=== PATIENT | female | born 1960 | race Caucasian/White ===

== ENCOUNTER 2019-04-20 17:09 | Inpatient (IN) | payer SELFPAY ==
[2019-04-20 17:43] LABS: Absolute Lymphocytes (CBC) 3.6 K/uL (0.7-4.9); Basophils % 1.4 % (0-1.3); Hematocrit 41.7 % (36.0-45.0); Lymphocytes % 27.5 % (15.3-44.8); MPV 8.7 fL (7.6-11.3); RBC Red Blood Cell Count 4.84 M/uL (3.86-4.86)
[2019-04-20 17:44] LABS: Protime INR 0.96
[2019-04-20 18:12] LABS: ALT/SGPT 20 U/L (12-78); AST/SGOT 10 U/L (15-37); Albumin 3.3 g/dL (3.4-5.0); Alkaline Phosphatase 185 U/L (45-117); BUN Blood Urea Nitrogen 14 mg/dL (7-18); Bicarbonate 24 mmol/L (21-32); Bilirubin Direct < 0.1 mg/dL (0-0.2); Bilirubin Total 0.2 mg/dL (0.2-1.0); Glucose Level 383 mg/dL (74-106); Magnesium 1.8 mg/dL (1.8-2.4); NT PRO-BNP 119 pg/mL (<125); Potassium 3.7 mmol/L (3.5-5.1); Protein, Total 6.9 g/dL (6.4-8.2); Sodium Level 137 mmol/L (136-145); Troponin (Emerg Dept Use Only) 0.02 ng/mL (0.0-0.045)
--- NOTE | 2019-04-20 18:15 | RAD REPORT ---
EXAM DESCRIPTION: Elsa Single View04/20/2019 5:49 pm CLINICAL HISTORY: Chest pain COMPARISON: none FINDINGS: An area scarring or subsegmental atelectasis is present within the left lung base The remainder of the lungs appear clear of acute infiltrate. The heart is normal size Scoliosis involves the thoracolumbar spine
[2019-04-20] MEDS ORDERED: NA CHLORIDE 0.9% 1,000 ML ONE (18:32)
--- NOTE | 2019-04-20 21:33 | ER ---
Nurse's Notes [facility] Name: Blanca Estrada Age: 59 yrs Sex: Female : 1960 Arrival Date: 04/20/2019 Time: 17:11 Bed 7 Private MD: Diagnosis: Non-ST elevation (NSTEMI) myocardial infarction;Hyperglycemia, unspecified Presentation: 04/20 17:12 Presenting complaint: EMS states: Sudden onset SOB, palpitations, and substernal chest hb pressure while standing in line at [employer]. NSR on 12 lead, BGL 427, NS 500ml administered to 20G RAC. 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 Transition of care: patient was not received from another setting of care. Onset of symptoms was April 20, 2019. Risk Assessment: Do you want to hurt yourself or someone else? Patient reports no desire to harm self or others. Initial Sepsis Screen: Does the patient meet any 2 criteria? No. Patient's initial sepsis screen is negative. Does the patient have a suspected source of infection? No. Patient's initial sepsis screen is negative. Care prior to arrival: None. 17:12 Method Of Arrival: EMS: [facility] hb 17:12 Acuity: WILMAR 3 hb Triage Assessment: 17:16 General: Appears in no apparent distress. Behavior is calm, cooperative. Pain: Denies hb pain. EENT: No signs and/or symptoms were reported regarding the EENT system. Neuro: Level of Consciousness is awake, alert, obeys commands, Oriented to person, place, time, situation. Cardiovascular: Heart tones S1 S2 present Capillary refill < 3 seconds Patient's skin is warm and dry. Respiratory: Airway is patent Respiratory effort is even, unlabored, Respiratory pattern is regular, symmetrical, Breath sounds are clear bilaterally. GI: No signs and/or symptoms were reported involving the gastrointestinal system. : No signs and/or symptoms were reported regarding the genitourinary system. Derm: Skin is pink, warm \T\ dry. Musculoskeletal: No signs and/or symptoms reported regarding the musculoskeletal system. Historical: - Allergies: 17:15 No Known Allergies; hb - Home Meds: 17:16 None [Active]; hb - PMHx: 17:15 Clots in the past; hb - PSHx: 17:15 Back x 2; hb - Immunization history:: Adult Immunizations up to date. - Social history:: Smoking status: Patient uses tobacco products, smokes two packs cigarettes per day. - Ebola Screening: : No symptoms or risks identified at this time. Screenin:16 Abuse screen: Denies threats or abuse. Denies injuries from another. Nutritional hb screening: No deficits noted. Tuberculosis screening: No symptoms or risk factors identified. Fall Risk None identified. Assessment: 17:17 General: see triage assessment. hb 18:15 Reassessment: Patient appears in no apparent distress at this time. Patient and/or hb family updated on plan of care and expected duration. Pain level reassessed. Patient is alert, oriented x 3, equal unlabored respirations, skin warm/dry/pink. 19:20 General: Appears in no apparent distress. uncomfortable, Behavior is calm, cooperative. ak1 Pain: Denies pain. Neuro: Level of Consciousness is awake, alert, obeys commands, Oriented to person, place, time, situation, Appropriate for age Spray I Painter are equal bilaterally Moves all extremities. Full function Speech is normal, Facial symmetry appears normal. Cardiovascular: No deficits noted. Respiratory: Airway is patent Respiratory effort is even, unlabored, Respiratory pattern is regular, Breath sounds are clear bilaterally. GI: No signs and/or symptoms were reported involving the gastrointestinal system. : No signs and/or symptoms were reported regarding the genitourinary system. EENT: No signs and/or symptoms were reported regarding the EENT system. Derm: No signs and/or symptoms reported regarding the dermatologic system. Musculoskeletal: No signs and/or symptoms reported regarding the musculoskeletal system. 19:20 Pain: denies pain. rr5 19:21 Pain: Pain began. ak1 21:15 Reassessment: Patient appears in no apparent distress at this time. ED provider rr5 explained to patient the result of 2nd troponin, with order made and carried out. 21:30 Reassessment: pt not in room. pt belongings not in the room, Konrad notified. ak1 22:00 Reassessment: Patient appears in no apparent distress at this time. Patient and/or rr5 family updated on plan of care and expected duration. Pain level reassessed. Patient is alert, oriented x 3, equal unlabored respirations, skin warm/dry/pink. awaiting for room assignment. 23:00 Reassessment: Patient appears in no apparent distress at this time. Patient is alert, rr5 oriented x 3, equal unlabored respirations, skin warm/dry/pink. no complaints made. breathing spontaneously at room air. 04/21 00:00 Reassessment: Patient appears in no apparent distress at this time. No changes from rr5 previously documented assessment. Patient is alert, oriented x 3, equal unlabored respirations, skin warm/dry/pink. agreed for the plan of care for admission. Vital Signs: 04/20 17:13 BP 136 / 81; Pulse 100; Resp 20; Temp 97.9; Pulse Ox 100% on R/A; Weight 70.31 kg; hb Height 5 ft. 7 in. (170.18 cm); Pain 0/10; 18:15 BP 132 / 74; Pulse 85; Resp 16; Pulse Ox 96% on R/A; Pain 0/10; hb 19:21 BP 124 / 72; Pulse 92; Resp 16; Temp 98; Pulse Ox 96% on R/A; ak1 21:24 BP 150 / 76; Pulse 78; Resp 18; Temp 98; Pulse Ox 99% on R/A; ak1 22:30 BP 131 / 78; Pulse 80; Resp 20; Pulse Ox 99% ; rr5 23:30 BP 144 / 70; Pulse 85; Resp 16; Pulse Ox 98% ; rr5 04/21 00:30 BP 129 / 67; Pulse 75; Resp 16; Pulse Ox 99% ; rr5 02:00 BP 149 / 70; Pulse 69; Resp 18; Pulse Ox 98% ; rr5 03:00 BP 141 / 75; Pulse 70; Resp 17; Temp 98; Pulse Ox 99% ; rr5 04/20 17:13 Body Mass Index 24.28 (70.31 kg, 170.18 cm) hb ED Course: 04/20 17:11 Patient arrived in ED. am2 17:13 Triage completed. hb 17:13 Arm band placed on. hb 17:17 Patient has correct armband on for positive identification. Placed in gown. Bed in low hb position. Call light in reach. psychology department chair on. Pulse ox on. NIBP on. 17:17 Patient maintains SpO2 saturation greater than 95% on room air. hb 17:19 Konrad Hernandez PA is PHCP. [facility] 17:19 Josh Amor MD is Attending Physician. [facility] 17:31 Initial lab(s) drawn, by me, sent to lab. dh3 17:51 XRAY Chest (1 view) In Process Unspecified. EDMS 18:39 Cadence Crump, RN is Primary Nurse. hb 19:00 Maintain EMS IV. Dressing intact. Good blood return noted. Site clean \T\ dry. Gauge \T\ rr 5 site: g22 right AC. received from AM shift. 19:20 Primary Nurse role handed off by Cadence Crump, EMMIE ak1 19:20 Anabela Wade, EMMIE is Primary Nurse. ak1 19:20 Door closed. Warm blanket given. ak1 20:24 Troponin (emerg Dept Use Only) Sent. ak1 20:28 Repeat lab(s) drawn. by me, sent to lab. rr5 21:32 Dao Esquivel MD is Hospitalizing Provider. [facility] 04/21 00:34 No provider procedures requiring assistance completed. Patient admitted, IV remains in rr5 place. intact, No redness/swelling at site. Administered Medications: 04/20 18:40 Drug: NS 0.9% 1000 ml Route: IV; Rate: 1 bolus; Site: right antecubital; sg 20:00 Follow up: Response: No adverse reaction; IV Status: Completed infusion; IV Intake: rr5 1000ml 21:25 Drug: Lovenox 1 mg/kg Route: Sub-Q; Site: right lower abdomen; rr5 04/21 12:16 Follow up: Response: No adverse reaction bp 04/20 21:49 Drug: Aspirin Chewable Tablet 324 mg Route: PO; rr5 04/21 12:16 Follow up: Response: No adverse reaction bp 04/20 21:50 Drug: Metoprolol 25 mg Route: PO; rr5 04/21 12:15 Follow up: Response: No adverse reaction bp Intake: 04/20 20:00 IV: 1000ml; Total: 1000ml. rr5 Outcome: 21:32 Decision to Hospitalize by Provider. [facility] 04/21 03:00 Admitted to ER Hold. Please see [facility] for further documentation. rr5 Condition: stable Instructed on the need for admit. 12:15 Admitted to Tele accompanied by tech, via wheelchair, room 411, with chart, Report bp called to OSORIO RN 12:32 Patient left the ED. bp Signatures: Dispatcher [employer] EDMS Alden Canales RN RN sg Konrad Hernandez PA PA jmm Krenek, Amber, RN RN ak1 Cadence Crump RN RN Liberty Redman 2 Elizabeth Parisi 3 Jovanny Pérez RN RN bp Bert Barnes RN RN rr5
--- NOTE | 2019-04-20 21:34 | EDPHYS ---
Physician Documentation [facility] Name: Blanca Estrada Age: 59 yrs Sex: Female : 1960 Arrival Date: 04/20/2019 Time: 17:11 Bed 7 Private MD: ED Physician Josh Amor HPI: 04/20 17:19 This 59 yrs old Female presents to ER via EMS with complaints of Chest Pain. [facility] 17:19 The patient or guardian reports chest pain that is located primarily in the substernal [facility] area. Onset: gradually, just prior to arrival. The pain does not radiate. Associated signs and symptoms: Pertinent positives: vomiting, Pertinent negatives: abdominal pain. The chest pain is described as aching, a pressure. This is a 59 year old female with no known chronic medical conditions that presents to the ED with complaints of chest pain, palpitations, beginning on and off for 1 month worsening just prior to arrival. Patient admits to tobacco use. . Historical: - Allergies: 17:15 No Known Allergies; hb - Home Meds: 17:16 None [Active]; hb - PMHx: 17:15 Clots in the past; hb - PSHx: 17:15 Back x 2; hb - Immunization history:: Adult Immunizations up to date. - Social history:: Smoking status: Patient uses tobacco products, smokes two packs cigarettes per day. - Ebola Screening: : No symptoms or risks identified at this time. ROS: 17:19 Constitutional: Negative for fever, chills, and weight loss. [facility] 17:19 Respiratory: Negative for shortness of breath, cough, wheezing, and pleuritic chest pain. 17:19 Cardiovascular: Positive for chest pain, palpitations. 17:19 Abdomen/GI: Positive for nausea and vomiting. 17:19 All other systems are negative. Exam: 17:19 Constitutional: This is a well developed, well nourished patient who is awake, alert, jmm and in no acute distress. Head/Face: atraumatic. Eyes: EOMI, no conjunctival erythema appreciated ENT: Moist Mucus Membranes Neck: Trachea midline, Supple Chest/axilla: Normal chest wall appearance and motion. Cardiovascular: Regular rate and rhythm. No edema appreciated Respiratory: Normal respirations, no respiratory distress appreciated Abdomen/GI: Non distended, soft Back: Normal ROM Skin: General appearance color normal MS/ Extremity: Moves all extremities, no obvious deformities appreciated, no edema noted to the lower extremities Neuro: Awake and alert, normal gait Psych: Behavior is normal, Mood is normal, Patient is cooperative and pleasant 17:19 Cardiovascular: Rate: normal, Rhythm: regular, Pulses: no pulse deficits are appreciated. Vital Signs: 17:13 BP 136 / 81; Pulse 100; Resp 20; Temp 97.9; Pulse Ox 100% on R/A; Weight 70.31 kg; hb Height 5 ft. 7 in. (170.18 cm); Pain 0/10; 18:15 BP 132 / 74; Pulse 85; Resp 16; Pulse Ox 96% on R/A; Pain 0/10; hb 19:21 BP 124 / 72; Pulse 92; Resp 16; Temp 98; Pulse Ox 96% on R/A; ak1 21:24 BP 150 / 76; Pulse 78; Resp 18; Temp 98; Pulse Ox 99% on R/A; ak1 22:30 BP 131 / 78; Pulse 80; Resp 20; Pulse Ox 99% ; rr5 23:30 BP 144 / 70; Pulse 85; Resp 16; Pulse Ox 98% ; rr5 1208 00:30 BP 129 / 67; Pulse 75; Resp 16; Pulse Ox 99% ; rr5 02:00 BP 149 / 70; Pulse 69; Resp 18; Pulse Ox 98% ; rr5 03:00 BP 141 / 75; Pulse 70; Resp 17; Temp 98; Pulse Ox 99% ; rr5 04/20 17:13 Body Mass Index 24.28 (70.31 kg, 170.18 cm) hb MDM: 04/20 17:31 Patient medically screened. [facility] 20:21 Data reviewed: vital signs, nurses notes. [facility] 21:30 The patient was given aspirin in the Emergency Department. Data reviewed: lab test [facility] result(s), EKG, radiologic studies, plain films. Counseling: I had a detailed discussion with the patient and/or guardian regarding: the historical points, exam findings, and any diagnostic results supporting the discharge/admit diagnosis, lab results, the need for further work-up and treatment in the hospital. ED course: Troponin elevated on repeat. Chest Pain is resolved. I discussed the patient with Dr. Esquivel whom accepted admission. . 04/20 17:19 Order name: Basic Metabolic Panel [facility] 04/20 17:19 Order name: CBC with Diff [facility] 04/20 17:19 Order name: LFT's [facility] 04/20 17:19 Order name: Magnesium [facility] 04/20 17:19 Order name: NT PRO-BNP [facility] 04/20 17:19 Order name: PT-INR; Complete Time: 18:20 [facility] 04/20 17:19 Order name: Troponin (emerg Dept Use Only); Complete Time: 18:20 [facility] 04/20 17:20 Order name: Basic Metabolic Panel; Complete Time: 18:20 EDMS 04/20 17:20 Order name: CBC with Automated Diff; Complete Time: 17:47 EDMS 04/20 17:20 Order name: Liver (Hepatic) Function; Complete Time: 18:20 EDMS 04/20 17:20 Order name: Magnesium; Complete Time: 18:20 EDMS 04/20 17:20 Order name: NT PRO-BNP; Complete Time: 18:20 EDWA 04/20 17:31 Order name: D-Dimer; Complete Time: 18:20 [facility] 04/20 19:16 Order name: Troponin (emerg Dept Use Only); Complete Time: 21:13 [facility] 04/20 17:19 Order name: XRAY Chest (1 view); Complete Time: 18:20 [facility] 04/20 21:46 Order name: Echo with Doppler [facility] 04/20 21:46 Order name: Basic Metabolic Panel [facility] 04/20 21:46 Order name: Basic Metabolic Panel [facility] 04/20 21:46 Order name: CBC with Automated Diff [facility] 04/20 21:46 Order name: CBC with Automated Diff; Complete Time: 10:09 EDWA 04/20 21:46 Order name: Lipid Profile [facility] 04/20 21:46 Order name: Lipid Profile; Complete Time: 10:09 EDMS 04/20 21:46 Order name: Troponin I [facility] 04/20 21:46 Order name: Troponin I EDWA 04/20 21:46 Order name: Troponin I [facility] 04/20 21:49 Order name: Glucose, Ancillary Testing; Complete Time: 10:09 EDMS 04/21 05:42 Order name: Basic Metabolic Panel; Complete Time: 10: EDMS 04/21 05:44 Order name: Troponin I; Complete Time: 10: [facility] 04/20 17:19 Order name: EKG; Complete Time: 17:21 [facility] 04/20 17:19 Order name: Cardiac monitoring; Complete Time: 17:34 [facility] 04/20 17:19 Order name: EKG - Nurse/Tech; Complete Time: 17:34 [facility] 04/20 17:19 Order name: IV Saline Lock; Complete Time: 17:34 [facility] 04/20 17:19 Order name: Labs collected and sent; Complete Time: 17:34 [facility] 04/20 17:19 Order name: O2 Per Protocol; Complete Time: 17:34 [facility] 04/20 17:19 Order name: O2 Sat Monitoring; Complete Time: 17:34 [facility] 04/20 19:16 Order name: EKG - Nurse/Tech; Complete Time: 20:24 [facility] 04/20 21:04 Order name: Fingerstick Glucose; Complete Time: 21:39 [facility] 04/20 21:46 Order name: CONS Physician Consult [facility] 04/20 21:46 Order name: Heart Healthy [facility] 04/20 21:46 Order name: EKG Electrocardiogram EDWA 04/20 21:46 Order name: EKG Electrocardiogram EDWA Administered Medications: 18:40 Drug: NS 0.9% 1000 ml Route: IV; Rate: 1 bolus; Site: right antecubital; sg 20:00 Follow up: Response: No adverse reaction; IV Status: Completed infusion; IV Intake: rr5 1000ml 21:25 Drug: Lovenox 1 mg/kg Route: Sub-Q; Site: right lower abdomen; rr5 04/21 12:16 Follow up: Response: No adverse reaction bp 04/20 21:49 Drug: Aspirin Chewable Tablet 324 mg Route: PO; rr5 04/21 12:16 Follow up: Response: No adverse reaction bp 04/20 21:50 Drug: Metoprolol 25 mg Route: PO; rr5 04/21 12:15 Follow up: Response: No adverse reaction bp Disposition: 04/22 08:31 Co-signature as Attending Physician, Josh Amor MD I agree with the assessment and kdr plan of care. Disposition: 04/20/19 21:32 Hospitalization ordered by Dao Esquivel for Inpatient Admission. Preliminary diagnosis are Non-ST elevation (NSTEMI) myocardial infarction, Hyperglycemia, unspecified. - Bed requested for Telemetry/MedSurg (Inpatient). - Status is Inpatient Admission. bp - Condition is Stable. - Problem is new. - Symptoms have improved. UTI on Admission? No Signatures: Dispatcher [employer] EDMS Bess Kirkland, RN RN Alden Canales, RN EMMIE Josh Amor MD MD kdr Mickail, Joel, PA PA [facility] Anabela Wade RN RN ak1 Veronique Giles RN RN Cadence Crump RN RN Jovanny Pérez, RN RN bp Bert Barnes RN RN rr5 Corrections: (The following items were deleted from the chart) 04/20 23:15 21:32 Hospitalization Ordered by Dao Esquivel MD for Inpatient Admission. Preliminary cg diagnosis is Non-ST elevation (NSTEMI) myocardial infarction; Hyperglycemia, unspecified. Bed requested for Intensive Care Unit. Status is Inpatient Admission. Condition is Stable. Problem is new. Symptoms have improved. UTI on Admission? No. [facility] 23:48 23:15 04/20/2019 21:32 Hospitalization Ordered by Dao Esquivel MD for Inpatient cg Admission. Preliminary diagnosis is Non-ST elevation (NSTEMI) myocardial infarction; Hyperglycemia, unspecified. Bed requested for [facility] ER HOLD. Status is Inpatient Admission. Condition is Stable. Problem is new. Symptoms have improved. UTI on Admission? No. josi 04/21 01:18 04/20 23:48 04/20/2019 21:32 Hospitalization Ordered by Dao Esquivel MD for Inpatient cg Admission. Preliminary diagnosis is Non-ST elevation (NSTEMI) myocardial infarction; Hyperglycemia, unspecified. Bed requested for Telemetry/MedSurg (Inpatient). Status is Inpatient Admission. Condition is Stable. Problem is new. Symptoms have improved. UTI on Admission? No. josi 04/21 11:27 01:18 04/20/2019 21:32 Hospitalization Ordered by Dao Esquivel MD for Inpatient dw Admission. Preliminary diagnosis is Non-ST elevation (NSTEMI) myocardial infarction; Hyperglycemia, unspecified. Bed requested for [facility] ER HOLD. Status is Inpatient Admission. Condition is Stable. Problem is new. Symptoms have improved. UTI on Admission? No. josi 12:32 11:27 04/20/2019 21:32 Hospitalization Ordered by Dao Esquivel MD for Inpatient bp Admission. Preliminary diagnosis is Non-ST elevation (NSTEMI) myocardial infarction; Hyperglycemia, unspecified. Bed requested for Telemetry/MedSurg (Inpatient). Status is Inpatient Admission. Condition is Stable. Problem is new. Symptoms have improved. UTI on Admission? No. dw
[2019-04-20] MEDS ORDERED: MORPHINE 4 MG/ML SYR IV PRN (21:40)
[2019-04-20] MEDS ORDERED: METOPROLOL TAR 25 MG TAB ONE (21:43)
[2019-04-20] MEDS ORDERED: ASPIRIN 81 MG CHEWABLE TABLET ONE (21:43)
[2019-04-20] MEDS ORDERED: ENOXAPARIN 80 MG/0.8 ML SQ ONE (21:44)
[2019-04-20] MEDS ORDERED: CLOPIDOGREL 75 MG TABLET PO ONE (21:53)
[2019-04-21] MEDS: ATORVASTATIN 40 MG TAB PO SCH ×2 (00:13→20:34)
[2019-04-21] MEDS ORDERED: CLOPIDOGREL 75 MG TABLET ONE ×2 (02:14→08:47)
[2019-04-21] MEDS ORDERED: ATORVASTATIN 20 MG TAB ONE (02:14)
[2019-04-21 03:31] VITALS: BMI 24.1
[2019-04-21] MEDS ORDERED: ACETAMINOPHEN 500 MG TAB ONE (04:15)
[2019-04-21] MEDS: ACETAMINOPHEN 500 MG TAB PO PRN ×2 (04:23→20:39)
[2019-04-21 05:33] LABS: Absolute Lymphocytes (CBC) 5.1 K/uL (0.7-4.9); Basophils % 0.2 % (0-1.3); Hematocrit 38.6 % (36.0-45.0); Lymphocytes % 42.2 % (15.3-44.8); MPV 8.7 fL (7.6-11.3)
[2019-04-21 05:41] LABS: BUN Blood Urea Nitrogen 9 mg/dL (7-18); Bicarbonate 26 mmol/L (21-32); Glucose Level 298 mg/dL (74-106); HDL Cholesterol 36 mg/dL (40-60); LDL Cholesterol, Calculated 80 (<130); Potassium 3.9 mmol/L (3.5-5.1); Sodium Level 139 mmol/L (136-145)
[2019-04-21] MEDS: METOPROLOL TAR 50 MG TAB PO SCH ×3 (06:00→20:34)
[2019-04-21] MEDS ORDERED: METOPROLOL TAR 50 MG TAB PO SCH (06:00)
--- NOTE | 2019-04-21 06:03 | EKG ---
Test Date: 2019-04-20 Test Time: 20:25:37 Inspector Missile: LANDY MEASUREMENT RESULTS: Intervals: Rate: 73 TX: 140 QRSD: 88 QT: 392 QTc: 431 [place]: P: 71 TX: 140 QRS: 64 T: 97 INTERPRETIVE STATEMENTS: Normal sinus rhythm Normal ECG Compared to ECG 04/20/2019 17:13:55 No significant changes Electronically Signed On 04-21-19 06:02:59 GRAVITY PROSPECTOR by Darinel Farris
--- NOTE | 2019-04-21 06:04 | EKG ---
Test Date: 2019-04-20 Test Time: 17:13:55 Pilot Teacher: KANDIS MEASUREMENT RESULTS: Intervals: Rate: 94 KS: 144 QRSD: 90 QT: 360 QTc: 450 [place]: P: 59 KS: 144 QRS: 47 T: 81 INTERPRETIVE STATEMENTS: Normal sinus rhythm Possible Left atrial enlargement Borderline ECG Compared to ECG 05/07/2002 06:26:00 No significant changes Electronically Signed On 04-21-19 06:03:36 PHOTORESIST CONTACT PRINTER by Darinel Farris
[2019-04-21] MEDS ORDERED: METOPROLOL TAR 50 MG TAB ONE ×2 (06:31→08:46)
--- NOTE | 2019-04-21 07:55 | P.HP ---
Certification for Inpatient Patient admitted to: Inpatient With expected LOS: >2 Midnights Patient will require the following post-hospital care: None Practitioner: I am a practitioner with admitting privileges, knowledge of patient current condition, hospital course, and medical plan of care. Services: Services provided to patient in accordance with Admission requirements found in Title 42 Section 412.3 of the Code of Federal Regulations Patient History Date of Service: 04/20/19 Reason for admission: Chest pain rule out acute coronary syndrome History of Present Illness: Patient is a 59-year-old female came to the hospital chest discomfort. Pain was mainly in the sternal region. There was no radiation of her pain. Patient was having some vomiting. Otherwise patient has history of tobacco use and a family history. Patient's initial troponin was negative. Her repeat troponin in the ER was 0.3. It was decided to admit the patient for a non ST-elevation myocardial infarction. We get Cardiology consultation as well. Continue anti- platelet therapy and statin therapy along with anti coagulation. Patient has had a DVT in the past; however, D-dimer at this time is negative. No need to repeat any imaging studies to further evaluate this. Will await Cardiology evaluation. Allergies No Known Allergies Allergy (Unverified 04/22/17 23:42) Home Medications: NK [No Home Meds] 04/21/19 - Past Medical/Surgical History Diabetic: No -: DVT -: back surgery - Family History Father Family History: Reviewed- Non-Contributory - Social History Smoking Status: Current every day smoker Alcohol use: No CD- Drugs: No Caffeine use: No Place of Residence: Home Review of Systems 10-point ROS is otherwise unremarkable Physical Examination - Vital Signs Temperature: 97.8 F Blood Pressure: 144/69 Pulse: 75 Respirations: 17 Pulse Ox (%): 99 - Physical Exam General: Alert, In no apparent distress, Oriented x3 HEENT: Atraumatic, PERRLA, Mucous membr. moist/pink, EOMI, Sclerae nonicteric Neck: Supple, 2+ carotid pulse no bruit, No LAD, Without JVD or thyroid abnormality Respiratory: Clear to auscultation bilaterally, Normal air movement Cardiovascular: Regular rate/rhythm, Normal S1 S2, No murmurs Gastrointestinal: Normal bowel sounds, Soft and benign, Non-distended, No tenderness Musculoskeletal: No clubbing, No swelling, No tenderness Integumentary: No rashes Neurological: Normal gait, Normal speech, Normal strength at 5/5 x4 extr, Normal tone, Sensation intact, Cranial nerves 3-12 intact, Normal affect Lymphatics: No axilla or inguinal lymphadenopathy - Studies Laboratory Data (last 24 hrs) 04/20/19 17:31: PT 11.4, INR 0.96 04/20/19 17:31: WBC 13.1 H, Hgb 14.4, Hct 41.7, Plt Count 321 04/20/19 17:31: Sodium 137, Potassium 3.7, BUN 14, Creatinine 0.92, Glucose 383 H, Magnesium 1.8, Total Bilirubin 0.2, AST 10 L, ALT 20, Alkaline Phosphatase 185 H Assessment & Plan - Problems (Diagnosis) (1) Chest pain, rule out acute myocardial infarction Current Visit: Yes Status: Acute (2) Non-STEMI (non-ST elevated myocardial infarction) Current Visit: Yes Status: Acute (3) Tobacco abuse Current Visit: Yes Status: Acute - Plan 1. Serial troponins and EKG 2. Cardiology consultation 3. Further diagnostic testing pending cardiology evaluation 4. Anti-platelet therapy, anti coagulation, beta-eulalio, statin, and O2 as needed 5. IV morphine for pain 6. Nitro p.r.n. 7. Purchasing/Receiving regarding tobacco cessation 8. GI and DVT prophylaxis Discharge Plan: Home Plan to discharge in: Greater than 2 days - Advance Directives Does patient have a Living Will: No Does patient have a Durable POA for Healthcare: No - Code Status/Comfort Care Code Status Assessed: Yes Code Status: Full Code Critical Care: No Time Spent Managing PTS Care (In Minutes): 45
[2019-04-21] MEDS ORDERED: GLUCAGON 1 MG/VIAL IM PRN (08:01)
[2019-04-21] MEDS ORDERED: D50W 25 GM/50 ML SYRINGE/VIAL IV PRN (08:01)
[2019-04-21] MEDS ORDERED: NICOTINE 21 MG/PAT TD ONE (08:47)
[2019-04-21] MEDS ORDERED: ENOXAPARIN 40 MG/0.4 ML SQ ONE (08:47)
[2019-04-21] MEDS ORDERED: ASPIRIN EC 81 MG TAB PO ONE (08:47)
[2019-04-21] MEDS ORDERED: INFLUENZA VACCINE (for 3y+) 0.5 ML DOSE IMVAC ONE ×2 (08:48→09:00)
[2019-04-21] MEDS: NICOTINE 21 MG/PAT TD SCH (09:00)
[2019-04-21] MEDS: ENOXAPARIN 40 MG/0.4 ML SQ SCH (09:00)
[2019-04-21] MEDS: ASPIRIN EC 81 MG TAB PO SCH (09:00)
[2019-04-21] MEDS: CLOPIDOGREL 75 MG TABLET PO SCH (09:00)
--- NOTE | 2019-04-21 11:36 | P.PN ---
Subjective Date of Service: 04/21/19 Primary Care Provider: None Chief Complaint: Chest pain rule out acute coronary syndrome Subjective: Doing well Physical Examination - Vital Signs Temperature: 97.4 F Blood Pressure: 140/78 Pulse: 70 Respirations: 12 Pulse Ox (%): 98 - Physical Exam General: Alert, In no apparent distress, Oriented x3, Cooperative HEENT: Atraumatic Neck: Supple Respiratory: Clear to auscultation bilaterally, Normal air movement Cardiovascular: Normal pulses, Regular rate/rhythm Gastrointestinal: Normal bowel sounds, Soft and benign, Non-distended Musculoskeletal: No tenderness, No warmth Integumentary: No warmth, No cyanosis Neurological: Normal speech, Normal strength at 5/5 x4 extr, Normal tone, Normal affect - Studies Laboratory Data (last 24 hrs) 04/20/19 17:31: PT 11.4, INR 0.96 04/20/19 17:31: WBC 13.1 H, Hgb 14.4, Hct 41.7, Plt Count 321 04/20/19 17:31: Sodium 137, Potassium 3.7, BUN 14, Creatinine 0.92, Glucose 383 H, Magnesium 1.8, Total Bilirubin 0.2, AST 10 L, ALT 20, Alkaline Phosphatase 185 H Medications List Reviewed: Yes Assessment & Plan Discharge Plan: Home Plan to discharge in: 24 Hours Physician Review Additional Text: Impression: Chest pain secondary to NSTEMI likely underlying CAD Hypertension Diabetes mellitus type 2 with hyperglycemia Hyperlipidemia Tobacco abuse Plan: Chest pain secondary to NSTEMI likely underlying CAD: Continue aspirin, Plavix , beta-eulalio therapy and statin medication. Patient also on Lovenox. Cardiology consulted. Anticipate heart catheterization tomorrow. Patient currently stable this time. Will continue to monitor closely. Hypertension: Continue with metoprolol. Will monitor and adjust appropriately. Diabetes mellitus type 2 with hyperglycemia: Patient on sliding scale. Will check A1c. Will determine what patient will require long-term. Hyperlipidemia: Lab reviewed. Continue with statin medication. Tobacco abuse: Will provide nicotine patch. Education provided. Patient has no plan or desire to stop smoking. Time Spent Managing Pts Care (In Minutes): 55
[2019-04-21] MEDS: INSULIN -REGULAR HUMAN 50 UNIT/0.5 ML ML SQ SCH ×3 (13:01→20:39)
[2019-04-21 15:36] LABS: Urine Appearance CLEAR; Urine Bilirubin NEGATIVE (NEG); Urine Blood NEGATIVE (NEG); Urine Glucose 3+ (NEG); Urine Protein NEGATIVE (NEG); Urine Specific Gravity >=1.030 (1.005-1.030); Urine Urobilinogen 0.2 mg/dL (0.2-1.0)
[2019-04-21 15:37] LABS: Urine Color PALE YELLOW; Urine Microscopic Reflex NO UMIC
--- NOTE | 2019-04-21 15:58 | CON ---
Identification: 59-year-old woman. Chief Complaint: Chest pain. History Of Present Illness: Ms. Estrada was feeling well until a month ago when she started noticin g that walking up a flight of stairs would make her feel uncomfortable and very short of breath and s he started having dizzy and sweating spells. Then while driving, she had an episode of chest pain, c entral chest, radiated to the left arm, sweating, nausea, and she has come to the emergency room wher e an EKG does not reveal anything very abnormal, but troponins are abnormal. Her initial troponin wa s 0.02, the second one was 0.31. The patient has no previous history of heart disease. She is gravi da 1, para 1, with gestational diabetes. She avoids seeing doctors. She has not had any checkups or blood work. Her blood work today suggests she is definitely diabetic. Blood sugars as high as 383 were noted, but she was not aware of that. She also has marked elevation of triglycerides, but her t otal cholesterol was not too high, it is 184. The patient reports no allergies. She uses no illegal drugs. She is a 1-1/2 to 2 packs per day cigarette smoker. Does not seem to be very willing to juvenal k about quitting. Physical Examination: General: She is 5 feet 7 inches, 154 pounds. I think that weight is wrong, although it is recorded in the chart. I would estimate her weight is somewhat higher than that. 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 Does not use any fem sonido hormones. No prescription medicines at all. She has had back surgery in the past. Lungs: Clear. Heart: Within normal limits. Abdomen: Soft. 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 Distal pulses posterio r tibial are within normal limits. No abdominal bruit. She has had 2 serial EKGs about 12 hours apart, neither one of them showed infarction, injury or isch emia. Her complete blood count reveals mild elevation of the white cell count. Her creatinine is 0. 56. Impression: The patient has an acute coronary syndrome with myocardial necrosis. My recommendation is for her to go through a cardiac cath and possible stent tomorrow. The patient seems to understand the procedure potential benefits, indications, risks, and agrees to proceed. SH/MODL Voice ID: [id number] Report ID: [id number]
[2019-04-21] MEDS: ALPRAZOLAM 0.25 MG TABLET PO PRN (20:40)
[2019-04-22] MEDS ORDERED: HEPA 1000U/500MLS 1,000 UNIT/500 ML BAG IV ONE ×2 (08:29→13:46)
--- NOTE | 2019-04-22 08:55 | EKG ---
Test Date: 2019-04-21 Test Time: 06:34:12 Histopathology Technician: RR MEASUREMENT RESULTS: Intervals: Rate: 65 OK: 150 QRSD: 96 QT: 422 QTc: 438 Cutler: P: 61 OK: 150 QRS: 55 T: 93 INTERPRETIVE STATEMENTS: Normal sinus rhythm Normal ECG Compared to ECG 04/20/2019 20:25:37 No significant changes Electronically Signed On 04-22-19 08:54:38 TAXONOMIST by Darinel Farris
[2019-04-22] MEDS: NICOTINE 21 MG/PAT TD SCH (09:00)
[2019-04-22] MEDS: ENOXAPARIN 40 MG/0.4 ML SQ SCH (09:00)
[2019-04-22] MEDS: INSULIN -REGULAR HUMAN 50 UNIT/0.5 ML ML SQ SCH ×4 (09:14→20:23)
[2019-04-22] MEDS: METOPROLOL TAR 50 MG TAB PO SCH ×2 (09:15→20:24)
[2019-04-22] MEDS: ASPIRIN EC 81 MG TAB PO SCH (09:15)
[2019-04-22 09:17] LABS: T3 Free 2.48 pg/mL (2.18-3.98); Thyroid Stimulating Hormone 1.31 uIU/mL (0.360-3.740)
[2019-04-22] MEDS: CLOPIDOGREL 75 MG TABLET PO SCH (09:17)
[2019-04-22] MEDS: ALPRAZOLAM 0.25 MG TABLET PO PRN ×2 (11:20→20:24)
[2019-04-22] MEDS ORDERED: MIDAZOLAM HCL 2 MG/2 ML INJ ONE (13:46)
[2019-04-22] MEDS ORDERED: HEPARIN 5000 UNIT/ML 1 ML VIAL ONE (13:46)
[2019-04-22] MEDS ORDERED: NA CHLORIDE 0.9% 500 ML ONE (13:46)
[2019-04-22] MEDS ORDERED: NICARDIPINE HCL 25 MG/10 ML IV ONE (13:47)
[2019-04-22] MEDS ORDERED: NITROGLYCERIN 100 MCG/ML SYR (for cath lab use only) IV ONE (13:47)
[2019-04-22] MEDS ORDERED: FENTANYL CITR 100 MCG/2 ML ONE (13:47)
[2019-04-22] MEDS ORDERED: ATROPINE SULF 1 MG/10 ML SYR IV ONE (13:47)
[2019-04-22] MEDS ORDERED: NA CHLORIDE 0.9% 0 ML ONE (13:47)
--- NOTE | 2019-04-22 14:15 | P.PN ---
Subjective Date of Service: 04/22/19 Primary Care Provider: None Chief Complaint: Chest pain rule out acute coronary syndrome Subjective: Doing well Physical Examination - Vital Signs Temperature: 98.1 F Blood Pressure: 144/69 Pulse: 67 Respirations: 16 Pulse Ox (%): 96 - Physical Exam General: Alert, In no apparent distress, Oriented x3, Cooperative HEENT: Atraumatic Neck: Supple Respiratory: Clear to auscultation bilaterally, Normal air movement Cardiovascular: Normal pulses, Regular rate/rhythm Gastrointestinal: Normal bowel sounds, Soft and benign, Non-distended, No masses , No rebound, No guarding - Studies Medications List Reviewed: Yes Assessment & Plan Discharge Plan: Home Plan to discharge in: 24 Hours Physician Review Additional Text: Impression: Chest pain secondary to NSTEMI likely underlying CAD Hypertension Diabetes mellitus type 2 with hyperglycemia Hyperlipidemia Tobacco abuse Plan: Chest pain secondary to NSTEMI likely underlying CAD: Patient to have heart catheterization today. Await findings. Continue aspirin, Plavix, beta-eulalio therapy and statin medication. Patient also on Lovenox. If heart catheterization unremarkable then will plan for discharge. If stent required, discharge will be delayed till tomorrow Hypertension: Continue with metoprolol. Will monitor and adjust appropriately. Diabetes mellitus type 2 with hyperglycemia: Patient on sliding scale. A1c 11. Patient will require basal insulin at discharge. Hyperlipidemia: Lab reviewed. Continue with statin medication. Tobacco abuse: Will provide nicotine patch. Education provided. Patient has no plan or desire to stop smoking. Time Spent Managing Pts Care (In Minutes): 55
--- NOTE | 2019-04-22 16:02 | ECHO ---
HEIGHT: 5 ft 7 in WEIGHT: 154 lb 5.177 oz DATE OF STUDY: 04/22/[address]: Dao Esquivel MD 2-DIMENSIONAL: YES M.MODE: YES DOPPLER: YES COLOR FLOW: YES TDS: NO PORTABLE: NO DEFINITY: NO BUBBLE STUDY: NO DIAGNOSIS: CHEST PAIN CARDIAC HISTORY: CATHERIZATION: YES SURGERY: CABGx4 PROSTHETIC VALVE: NO PACEMAKER: NO MEASUREMENTS (cm) DIASTOLIC (NORMALS) SYSTOLIC (NORMALS) IVSd 1.0 (0.6-1.2) LA Diam 3.0 (1.9-4.0) LVEF 51% LVIDd 3.7 (3.5-5.7) LVIDs 2.7 (2.0-3.5) %FS 25% LVPWd 1.1 (0.6-1.2) Ao Diam 2.4 (2.0-3.7) 2 DIMENSIONAL ASSESSMENT: RIGHT ATRIUM: NORMAL LEFT ATRIUM: NORMAL RIGHT VENTRICLE: NORMAL LEFT VENTRICLE: NORMAL TRICUSPID VALVE: NORMAL MITRAL VALVE: NORMAL PULMONIC VALVE: NORMAL AORTIC VALVE: NORMAL PERICARDIAL EFFUSION: NONE AORTIC ROOT: NORMAL LEFT VENTRICULAR WALL MOTION: NORMAL. DOPPLER/COLOR FLOW: NORMAL. COMMENTS: NORMAL 2D ECHO WITH DOPPLER. TECHNOLOGIST: SHERMAN SAM
[2019-04-22] MEDS: ATORVASTATIN 40 MG TAB PO SCH (20:24)
[2019-04-22] MEDS ORDERED: INSULIN GLARGINE 100 UNITS/ML SQ SCH (21:00)
--- NOTE | 2019-04-23 01:35 | OP ---
Surgeon: Darinel Farris MD Music Theory Teacher: Kelsie Mejía Identification: Ms. Estrada is 59. Procedure: Left heart catheterization with coronary angiography. We entered the left ventricle, but had too much arrhythmia including complete heart block, so we withdrew the catheter without measurin g pressures or doing an LV gram and the arrhythmia resolved. Procedure Findings: The patient's right coronary is free of any significant disease. The ostium of the left main has 60% to 70% stenosis and it is smaller in diameter than our 5-Djiboutian catheter that faisal rodriguez used. LAD and circumflex and the branches are free of any significant stenosis. The left main is about 12 to 15 mm long. Procedure In Detail: The patient was brought to the cardiac research laboratory manager in a fasting state sedated with Versed and fentanyl. The indication was non-ST elevation [place]. We used the right radial approach. Faisal rodriguez anesthetized the artery using lidocaine, entered the artery with a 21-gauge needle, cannulated it w ith a 0.021 inch diameter guidewire and placed a 6-Djiboutian Terumo sheath. There was some radial arter y spasm relieved when we gave the radial cocktail consisting of nicardipine, heparin, and nitroglycer in. We guided TIG catheter into the ascending aorta. We were able to angiogram right coronary and l eft coronary with the same catheter and attempt to do the left ventricle resulted in transient comple te heart block and V-tach both, so no LV gram or pressure measurements were done. At the end of the procedure when the patient was stable and when it was determined we would not do an angioplasty on th e left main, but transfer her for bypass, withdrew the catheter over a wire. Complications From The Procedure: Transient arrhythmia, resolved. Estimated Blood Loss: 5 cc. TYE/MIAN Voice ID: [id number] Report ID: [id number]
[2019-04-23 07:15] VITALS: O2SAT 92
[2019-04-23] MEDS: NICOTINE 21 MG/PAT TD SCH (09:00)
--- NOTE | 2019-04-23 09:34 | P.DS ---
Admission Date: 04/20/19 Discharge Date: 04/23/19 Primary Care Provider: None Disposition: TRANSFER TO [facility] Discharge Condition: GOOD Reason for Admission: Chest pain rule out acute coronary syndrome Consultations: Cardiology-Dr. Farris Procedures: ECHO: Ejection fraction 51% LEFT VENTRICULAR WALL MOTION: NORMAL. DOPPLER/COLOR FLOW: NORMAL. COMMENTS: NORMAL 2D ECHO WITH DOPPLER Heart Catheterization: Surgeon: Darinel Farris MD Procedure: Left heart catheterization with coronary angiography. We entered the left ventricle, but had too much arrhythmia including complete heart block, so we withdrew the catheter without measuring pressures or doing an LV gram and the arrhythmia resolved. Procedure Findings: The patient's right coronary is free of any significant disease. The ostium of the left main has 60% to 70% stenosis and it is smaller in diameter than our 5-Serbian catheter that we used. LAD and circumflex and the branches are free of any significant stenosis. The left main is about 12 to 15 mm long. Procedure In Detail: Angiogram right coronary and left coronary with the same catheter and attempt to do the left ventricle resulted in transient complete heart block and V-tach both, so no LV gram or pressure measurements were done. At the end of the procedure when the patient was stable and when it was determined we would not do an angioplasty on the left main, but transfer her for bypass, withdrew the catheter over a wire. Complications From The Procedure: Transient arrhythmia, resolved. Estimated Blood Loss: 5 cc. Medical problem list: Chest pain secondary to Acute Coronary Syndrome with heart catheterization showing 60-70% left main ostium stenosis Hypertension Diabetes mellitus type 2 with hyperglycemia Hyperlipidemia Tobacco abuse Brief History of Present Illness: 59-year-old female presented to the emergency room with chest pain. Cardiac enzymes abnormal. Patient determined to have Acute Coronary Syndrome. Blood sugars were elevated indicating new diagnosis of diabetes. Patient was admitted for further evaluation and treatment. Hospital Course: Patient presented with chest pain. Cardiac enzymes elevated indicating acute coronary syndrome. Patient seen and evaluated by Cardiology. Cardiology recommended heart catheterization to further evaluate. Patient found to have 60 -70% left main ostium stenosis. Angioplasty could not be performed due to a arrhythmia-complete heart block. This resolved after removal of catheter. Cardiology recommended CABG. Cardiology discuss case with cardiovascular surgery. Cardiovascular surgery agrees with plan of care for CABG. Patient to be transferred to a higher level care center-[facility] for further treatment. Patient currently on aspirin 81 mg daily, Lipitor 40 mg daily, and metoprolol 50 mg 1 pill twice daily. Patient with hypertension. Patient was started on medication during the course of her stay. This has remained stable. Patient will continue with metoprolol 50 mg 1 pill twice daily. Patient with new diagnosis of diabetes mellitus type 2 with hyperglycemia. Hemoglobin A1c above 11. Patient has been started on basal insulin. Patient will continue with Lantus 10 units subcu twice daily. Further adjustment can be done at Medical Center. Patient with hyperlipidemia. Medication has been started. Patient will continue with Lipitor 40 mg daily. Patient with history of tobacco abuse. Cessation education addressed. Patient has no plan or desire to stop smoking. Cessation is highly encouraged. Patient provided nicotine patch. Vital Signs/Physical Exam: Temp Pulse Resp BP Pulse Ox 97.2 F 72 17 134/63 96 04/23/19 08:00 04/23/19 08:00 04/23/19 08:00 04/23/19 08:00 04/23/19 08:00 General: Alert, In no apparent distress, Oriented x3, Cooperative HEENT: Atraumatic Neck: Supple Respiratory: Clear to auscultation bilaterally, Normal air movement Cardiovascular: Normal pulses, Regular rate/rhythm Gastrointestinal: Normal bowel sounds, Soft and benign, Non-distended, No tenderness, No masses, No rebound, No guarding Musculoskeletal: No tenderness, No warmth Integumentary: No erythema, No warmth, No cyanosis Neurological: Normal speech, Normal strength at 5/5 x4 extr, Normal tone, Normal affect Laboratory Data at Discharge: WBC 12.1 K/uL (4.3-10.9) H 04/21/19 05:15 Hgb 13.4 g/dL (12.0-15.0) 04/21/19 05:15 Hct 38.6 % (36.0-45.0) 04/21/19 05:15 Plt Count 312 K/uL (152-406) 04/21/19 05:15 PT 11.4 SECONDS (9.5-12.5) 04/20/19 17:31 INR 0.96 04/20/19 17:31 Sodium 139 mmol/L (136-145) 04/21/19 05:15 Potassium 3.9 mmol/L (3.5-5.1) 04/21/19 05:15 BUN 9 mg/dL (7-18) 04/21/19 05:15 Creatinine 0.56 mg/dL (0.55-1.3) 04/21/19 05:15 Glucose 298 mg/dL (74-106) H 04/21/19 05:15 Magnesium 1.8 mg/dL (1.8-2.4) 04/20/19 17:31 Total Bilirubin 0.2 mg/dL (0.2-1.0) 04/20/19 17:31 AST 10 U/L (15-37) L 04/20/19 17:31 ALT 20 U/L (12-78) 04/20/19 17:31 Alkaline Phosphatase 185 U/L (45-117) H 04/20/19 17:31 Troponin I 0.20 ng/mL (0.0-0.045) H 04/21/19 05:15 Triglycerides 342 mg/dL (<150) H 04/21/19 05:15 Cholesterol 184 mg/dL (<200) 04/21/19 05:15 HDL Cholesterol 36 mg/dL (40-60) L 04/21/19 05:15 Cholesterol/HDL Ratio 5.11 04/21/19 05:15 Home Medications: NK [No Home Meds] 04/21/19 Patient Discharge Instructions: 1. Patient to be transferred to [facility] for further treatment. 2. Current medications include aspirin 81 mg daily, metoprolol 50 mg 1 pill twice daily, Lipitor 40 mg daily, Lantus 10 units subcu twice daily, and nicotine patch daily. 3. Patient presented with chest pain. Cardiac enzymes elevated indicating acute coronary syndrome. Patient seen and evaluated by Cardiology. Cardiology recommended heart catheterization to further evaluate. Patient found to have 60-70% left main ostium stenosis. Angioplasty could not be performed due to a arrhythmia- complete heart block. This resolved after removal of catheter. Cardiology recommended CABG. Cardiology discuss case with cardiovascular surgery. Cardiovascular surgery agrees with plan of care for CABG. Patient to be transferred to a higher level care center-[facility] for further treatment. Patient currently on aspirin 81 mg daily, Lipitor 40 mg daily, and metoprolol 50 mg 1 pill twice daily. 4. Patient with hypertension. Patient was started on medication during the course of her stay. This has remained stable. Patient will continue with metoprolol 50 mg 1 pill twice daily. 5. Patient with new diagnosis of diabetes mellitus type 2 with hyperglycemia. Hemoglobin A1c above 11. Patient has been started on basal insulin. Patient will continue with Lantus 10 units subcu twice daily. Further adjustment can be done at Medical Center. 6. Patient with hyperlipidemia. Medication has been started. Patient will continue with Lipitor 40 mg daily. 7. Patient with history of tobacco abuse. Cessation education addressed. Patient has no plan or desire to stop smoking. Cessation is highly encouraged. Patient provided nicotine patch. Diet: ADA Activity: Ad rosangela Time spent managing pt's care (in minutes): 55
[2019-04-23] MEDS: INSULIN -REGULAR HUMAN 50 UNIT/0.5 ML ML SQ SCH ×2 (09:45→11:30)
[2019-04-23] MEDS: METOPROLOL TAR 50 MG TAB PO SCH (09:45)
[2019-04-23] MEDS: ASPIRIN EC 81 MG TAB PO SCH (09:46)
[2019-04-23 12:26] VITALS: BP 141/63; TEMP 97.4
--- NOTE | 2019-04-23 15:17 | PN ---
Ms. Estrada is 59, has been admitted and seen by Dr. Joiner and followup by Dr. Farris. She was adm itted on 04/20/2019. After that, she underwent a heart catheterization because of mis-IE-mcibsaqde m yocardial infarction and was found to have left main stenosis. Overnight, she had no chest pain. He r catheterization site in the right wrist was intact with no hematoma and good pulses. No telemetry changes. No symptoms. She is awaiting transfer to [facility] for coronary artery bypass surgery. KOREY/MIAN Voice ID: [id number] Report ID: [id number]
[2019-04-23] MEDS ORDERED: INSULIN GLARGINE 100 UNITS/ML SQ SCH (21:00)
== END 2019-04-23 18:48 | disposition short-term general hospital (02) | DRG 281 ==
LOC: ER 17:09 → ERHOLD 21:40 → 4TH 04-21 12:16
PROVIDERS: ADMIT Hospitalist; ATTEND Hospitalist
PROC: 4A023N7 Measurement of Cardiac Sampling and Pressure, Left Heart, Percutaneous Approach (ICD-10-PCS; principal; 2019-04-22)
PROC: B201YZZ Plain Radiography of Multiple Coronary Arteries using Other Contrast (ICD-10-PCS; 2019-04-22)
DX: I21.4 Non-ST elevation (NSTEMI) myocardial infarction (principal); I44.2 Atrioventricular block, complete; I25.10 Atherosclerotic heart disease of native coronary artery without angina pectoris; I10 Essential (primary) hypertension; E11.65 Type 2 diabetes mellitus with hyperglycemia; E78.5 Hyperlipidemia, unspecified; I49.8 Other specified cardiac arrhythmias; I24.9 Acute ischemic heart disease, unspecified; F17.210 Nicotine dependence, cigarettes, uncomplicated; Z23 Encounter for immunization
CPT/HCPCS: 36415; 71045; 80048; 80061; 80076; 81003; 82947; 83036; 83735; 83880; 84439; 84443; 84481; 84484; 85025; 85379; 85610; 90471; 93005; 93306; 93458; 96360; 96372; 99285; C1893; J0583; J1644; J1650; J1815; J2250; J3010; J7030; J7040; Q2035

== ENCOUNTER 2019-04-30 14:13 | Emergency (ER) | payer SELFPAY ==
--- OUTSIDE RECORDS SUMMARY | 2019-04-30 14:16 | XMS REPORT ---
:1960 [facility] Address [address] [place] [address] Care Team Providers Name Role Phone GILES MCDONALD Unavailable Unavailable Problems This patient has no known problems. Allergies, Adverse Reactions, Alerts This patient has no known allergies or adverse reactions. Medications This patient has no known medications. Results Test Description Test Time Test Comments Text Results Atomic Results Result Comments POCT-GLUCOSE METER 2019-04-28 12:34:00 Test Item Value Reference Range Comments POC-GLUCOSE METER (BEAKER) 208 mg/dL 70-110 : TESTED AT [address] (test wfte=6706) [place], [address]: Load Test Mechanic/Manager Managed Care [id number] for BRINASAMY MORALEZKEY POCT-GLUCOSE [id number] 08:26:00 Test Item Value Reference Range Comments POC-GLUCOSE METER (BEAKER) 145 mg/dL 70-110 : TESTED AT [address] (test erag=9096) [facility], [address]: Load Test Mechanic/Manager Managed Care [id number] for HILARY PARKER [id number] 06:31:00 Test Item Value Reference Range Comments MAGNESIUM (BEAKER) (test pwgc=692) 1.6 mg/dL 1.6-2.6 BUN AND [id number] 06:31:00 Test Item Value Reference Range Comments BLOOD UREA NITROGEN 12 mg/dL 7-21 (BEAKER) (test rpjl=098) CREATININE (BEAKER) (test 0.61 mg/dL 0.57-1.25 wnax=920) EGFR (BEAKER) (test 101 mL/min/1.73 sq m ESTIMATED GFR IS NOT wuri=6278) ACCURATE CREATININE CLEARANCE IN PREDICTING GLOMERULAR FILTRATION RATE. ESTIMATED GFR IS NOT APPLICABLE FOR DIALYSIS PATIENTS. BASIC METABOLIC [id number] 06:31:00 Test Item Value Reference Range Comments SODIUM (BEAKER) (test 137 meq/L 136-145 txow=419) POTASSIUM (BEAKER) (test 3.5 meq/L 3.5-5.1 ttbf=405) CHLORIDE (BEAKER) (test 105 meq/L 98-107 ebem=286) CO2 (BEAKER) (test 27 meq/L 22-29 blee=841) BLOOD UREA NITROGEN 12 mg/dL 7-21 (BEAKER) (test xgvg=509) CREATININE (BEAKER) (test 0.61 mg/dL 0.57-1.25 eogl=366) GLUCOSE RANDOM (BEAKER) 128 mg/dL 70-105 (test vtfw=226) CALCIUM (BEAKER) (test 8.1 mg/dL 8.4-10.2 matl=386) EGFR (BEAKER) (test 101 mL/min/1.73 sq m ESTIMATED GFR IS NOT rtxm=2720) ACCURATE CREATININE CLEARANCE IN PREDICTING GLOMERULAR FILTRATION RATE. ESTIMATED GFR IS NOT APPLICABLE FOR DIALYSIS PATIENTS. CBC (HEMOGRAM ONLY)2019-04-28 05:33:00 Test Item Value Reference Range Comments WHITE BLOOD CELL COUNT (BEAKER) (test wqmf=633) 13.4 K/ L 3.5-10.5 RED BLOOD CELL COUNT (BEAKER) (test vpeb=294) 3.66 M/ L 3.93-5.22 HEMOGLOBIN (BEAKER) (test jhno=484) 10.6 GM/DL 11.2-15.7 HEMATOCRIT (BEAKER) (test ccbu=539) 32.9 % 34.1-44.9 MEAN CORPUSCULAR VOLUME (BEAKER) (test vjfs=244) 89.9 fL 79.4-94.8 MEAN CORPUSCULAR HEMOGLOBIN (BEAKER) (test 29.0 pg 25.6-32.2 zqrg=553) MEAN CORPUSCULAR HEMOGLOBIN CONC (BEAKER) (test 32.2 GM/DL 32.2-35.5 shiu=903) RED CELL DISTRIBUTION WIDTH (BEAKER) (test 13.5 % 11.7-14.4 agmu=438) PLATELET COUNT (BEAKER) (test cjbo=150) 319 K/CU MM 150-450 MEAN PLATELET VOLUME (BEAKER) (test pvtc=810) 9.9 fL 9.4-12.3 NUCLEATED RED BLOOD CELLS (BEAKER) (test 0 /100 WBC 0-0 wmqm=007) POCT-GLUCOSE [id number] 22:02:00 Test Item Value Reference Range Comments POC-GLUCOSE METER (BEAKER) 214 mg/dL 70-110 : TESTED AT [address] (test rhrh=0225) [facility], [address]: Load Test Mechanic/Manager Managed Care [id number] for KAREN VEGA POCT-GLUCOSE [id number] 17:34:00 Test Item Value Reference Range Comments POC-GLUCOSE METER (BEAKER) 178 mg/dL 70-110 : TESTED AT [address] (test kqwd=4421) [facility], [address]: Load Test Mechanic/Manager Managed Care [id number] for SAMY MORRISKEY POCT-GLUCOSE [id number] 17:33:00 Test Item Value Reference Range Comments POC-GLUCOSE METER (BEAKER) 222 mg/dL 70-110 : TESTED AT [address] (test uxrv=7316) [facility], [address]: Load Test Mechanic/Manager Managed Care [id number] for SRIKANTH MCGHEE POCT-GLUCOSE [id number] 08:07:00 Test Item Value Reference Range Comments POC-GLUCOSE METER (BEAKER) 174 mg/dL 70-110 : TESTED AT [address] (test obxa=5524) [facility], [address]: Load Test Mechanic/Manager Managed Care [id number] for SRIKANTH MCGHEE RAD, CHEST, 1 VIEW, NON [id number] 08:04:00Reason for exam:->CIED ImplantationIs the patient ?->UnknownShould this be performed at the bedside?->YesFINAL REPORT CLINICAL HISTORY: CIED Implantation TECHNIQUE: 1 view of the chest. COMPARISON: 04/26/2019 IMPRESSION: A left chest wall dual-lead pacemaker is again seen without evidence for pneumothorax. Pulmonary vascular congestive findings appear increased. Small bilateral pleural effusions appear increased. The cardiomediastinal silhouette is magnified by technique. A dextroscoliosis of the thoracic spine is unchanged. Signed: Cindy Lee MDReport Verified Date/Time: 04/27/2019 08:04: 20 Reading Location: [facility] Neuro Reading Room [id number] 06:48:00 Test Item Value Reference Range Comments MAGNESIUM (BEAKER) (test absz=067) 1.7 mg/dL 1.6-2.6 BUN AND [id number] 06:48:00 Test Item Value Reference Range Comments BLOOD UREA NITROGEN 11 mg/dL 7-21 (BEAKER) (test yxeu=493) CREATININE (BEAKER) (test 0.67 mg/dL 0.57-1.25 ifcw=103) EGFR (BEAKER) (test 91 mL/min/1.73 sq m ESTIMATED GFR IS NOT fumt=9005) ACCURATE CREATININE CLEARANCE IN PREDICTING GLOMERULAR FILTRATION RATE. ESTIMATED GFR IS NOT APPLICABLE FOR DIALYSIS PATIENTS. BASIC METABOLIC [id number] 06:48:00 Test Item Value Reference Range Comments SODIUM (BEAKER) (test 138 meq/L 136-145 vvkq=432) POTASSIUM (BEAKER) (test 4.0 meq/L 3.5-5.1 iwlp=820) CHLORIDE (BEAKER) (test 105 meq/L 98-107 uppw=230) CO2 (BEAKER) (test 28 meq/L 22-29 pdvu=481) BLOOD UREA NITROGEN 11 mg/dL 7-21 (BEAKER) (test cqjo=792) CREATININE (BEAKER) (test 0.67 mg/dL 0.57-1.25 meuz=900) GLUCOSE RANDOM (BEAKER) 184 mg/dL 70-105 (test dbrd=602) CALCIUM (BEAKER) (test 8.6 mg/dL 8.4-10.2 ufxn=912) EGFR (BEAKER) (test 91 mL/min/1.73 sq m ESTIMATED GFR IS NOT nytr=7348) ACCURATE CREATININE CLEARANCE IN PREDICTING GLOMERULAR FILTRATION RATE. ESTIMATED GFR IS NOT APPLICABLE FOR DIALYSIS PATIENTS. CBC (HEMOGRAM ONLY)2019-04-27 06:25:00 Test Item Value Reference Range Comments WHITE BLOOD CELL COUNT (BEAKER) (test tfzz=606) 13.2 K/ L 3.5-10.5 RED BLOOD CELL COUNT (BEAKER) (test xdje=794) 4.10 M/ L 3.93-5.22 HEMOGLOBIN (BEAKER) (test tkyi=005) 12.0 GM/DL 11.2-15.7 HEMATOCRIT (BEAKER) (test rsxn=638) 37.0 % 34.1-44.9 MEAN CORPUSCULAR VOLUME (BEAKER) (test elvm=731) 90.2 fL 79.4-94.8 MEAN CORPUSCULAR HEMOGLOBIN (BEAKER) (test 29.3 pg 25.6-32.2 rxka=854) MEAN CORPUSCULAR HEMOGLOBIN CONC (BEAKER) (test 32.4 GM/DL 32.2-35.5 guse=852) RED CELL DISTRIBUTION WIDTH (BEAKER) (test 13.7 % 11.7-14.4 tyhc=896) PLATELET COUNT (BEAKER) (test wrej=676) 321 K/CU MM 150-450 MEAN PLATELET VOLUME (BEAKER) (test fnpu=578) 10.3 fL 9.4-12.3 NUCLEATED RED BLOOD CELLS (BEAKER) (test 0 /100 WBC 0-0 livj=317) POCT-GLUCOSE [id number] 21:23:00 Test Item Value Reference Range Comments POC-GLUCOSE METER (BEAKER) 209 mg/dL 70-110 : TESTED AT [facility] [address] [facility] (test yjwf=2422) [facility], [address]: Load Test Mechanic/Manager Managed Care [id number] for SILVIA KAREN POCT-GLUCOSE [id number] 18:13:00 Test Item Value Reference Range Comments POC-GLUCOSE METER (BEAKER) 280 mg/dL 70-110 : TESTED AT [place] [id number] [facility] (test zmzb=1508) [facility], [address]: Load Test Mechanic/Manager Managed Care [id number] for GEOFF MONTIEL RAD, CHEST, 1 VIEW, NON [id number] 14:36:00Reason for exam:->CIED ImplantationShould this be performed at the bedside?->YesFINAL REPORT INDICATION: CIED Implantation COMPARISON: None TECHNIQUE : Singlefrontal view of the chest. FINDINGS: Lungs and pleura: Lungs are hypoinflated. No effusion.Heart andmediastinum: Normal heart size. Unremarkable mediastinal contours.Osseous structures: No acute abnormality.Other: Pacer device. IMPRESSION: No pneumothorax Signed: Lisha, Amaris MDReport Verified Date/Time: 04/26/2019 14:36:47 Reading Location: [facility] Reading Room Electronically signed by: AMARIS LAY MD on 2018 02:36 PMPOCT-GLUCOSE [id number] 10:40:00 Test Item Value Reference Range Comments POC-GLUCOSE METER (BEAKER) 204 mg/dL 70-110 : TESTED AT [facility] [address] (test esta=8103) [facility], [address]: Load Test Mechanic/Manager Managed Care [id number] for JOURDAN TOUSSAINT [id number] 04:42:00 Test Item Value Reference Range Comments MAGNESIUM (BEAKER) (test vvrw=914) 1.8 mg/dL 1.6-2.6 BASIC METABOLIC [id number] 04:42:00 Test Item Value Reference Range Comments SODIUM (BEAKER) (test 135 meq/L 136-145 aaig=573) POTASSIUM (BEAKER) (test 3.4 meq/L 3.5-5.1 xnbn=542) CHLORIDE (BEAKER) (test 106 meq/L 98-107 xqlo=968) CO2 (BEAKER) (test 22 meq/L 22-29 rlhe=978) BLOOD UREA NITROGEN 8 mg/dL 7-21 (BEAKER) (test duvx=266) CREATININE (BEAKER) (test 0.66 mg/dL 0.57-1.25 zhzn=350) GLUCOSE RANDOM (BEAKER) 242 mg/dL 70-105 (test dhfw=389) CALCIUM (BEAKER) (test 8.4 mg/dL 8.4-10.2 qqhf=202) EGFR (BEAKER) (test 92 mL/min/1.73 sq m ESTIMATED GFR IS NOT jqfx=0025) ACCURATE CREATININE CLEARANCE IN PREDICTING GLOMERULAR FILTRATION RATE. ESTIMATED GFR IS NOT APPLICABLE FOR DIALYSIS PATIENTS. CBC (HEMOGRAM ONLY)2019-04-26 04:18:00 Test Item Value Reference Range Comments WHITE BLOOD CELL COUNT (BEAKER) (test mvyf=362) 14.7 K/ L 3.5-10.5 RED BLOOD CELL COUNT (BEAKER) (test sdko=645) 4.67 M/ L 3.93-5.22 HEMOGLOBIN (BEAKER) (test euya=838) 13.5 GM/DL 11.2-15.7 HEMATOCRIT (BEAKER) (test dnsz=495) 41.4 % 34.1-44.9 MEAN CORPUSCULAR VOLUME (BEAKER) (test fbfg=295) 88.7 fL 79.4-94.8 MEAN CORPUSCULAR HEMOGLOBIN (BEAKER) (test 28.9 pg 25.6-32.2 hrum=311) MEAN CORPUSCULAR HEMOGLOBIN CONC (BEAKER) (test 32.6 GM/DL 32.2-35.5 cyyk=479) RED CELL DISTRIBUTION WIDTH (BEAKER) (test 13.4 % 11.7-14.4 brky=994) PLATELET COUNT (BEAKER) (test kyii=175) 330 K/CU MM 150-450 MEAN PLATELET VOLUME (BEAKER) (test fvbd=137) 10.2 fL 9.4-12.3 NUCLEATED RED BLOOD CELLS (BEAKER) (test 0 /100 WBC 0-0 weac=743) POCT-GLUCOSE [id number] 21:56:00 Test Item Value Reference Range Comments POC-GLUCOSE METER (BEAKER) 381 mg/dL 70-110 : Notified RN/MD: TESTED AT (test fpmz=2422) [place] [id number] [facility], [address]: Load Test Mechanic/Manager Managed Care [id number] for SONIA FRANK TROPONIN [id number] 17:20:00 Test Item Value Reference Range Comments TROPONIN I (BEAKER) (test tjno=197) 0.12 ng/mL 0.00-0.03 Troponin I (TnI) levels must be interpreted in the context of the presenting symptoms and the clinical findings. Elevated TnI levels indicate myocardial damage, but are not specific for ischemic heart disease. Elevated TnI levels are seen in patients with other cardiac conditions (including myocarditis and congestive heart failure), and slight TnI elevations occur in patients with other conditions, including sepsis, renal failure, acidosis, acute neurological disease, and persistent tachyarrhythmia.POCT-GLUCOSE [id number] 11:55:00 Test Item Value Reference Range Comments POC-GLUCOSE METER (BEAKER) 163 mg/dL 70-110 : TESTED AT [place] [id number] [facility] (test fiwe=9163) [facility], [address]: Load Test Mechanic/Manager Managed Care [id number] for TELMA RODGERS CREATINE KINASE (CK)2019-04-25 11:26:00 Test Item Value Reference Range Comments CREATINE KINASE TOTAL (BEAKER) (test iede=803) 63 U/L 29-200 TROPONIN [id number] 10:05:00 Test Item Value Reference Range Comments TROPONIN I (BEAKER) (test nzko=901) 0.18 ng/mL 0.00-0.03 Troponin I (TnI) levels must be interpreted in the context of the presenting symptoms and the clinical findings. Elevated TnI levels indicate myocardial damage, but are not specific for ischemic heart disease. Elevated TnI levels are seen in patients with other cardiac conditions (including myocarditis and congestive heart failure), and slight TnI elevations occur in patients with other conditions, including sepsis, renal failure, acidosis, acute neurological disease, and persistent tachyarrhythmia.POCT-GLUCOSE [id number] 08:18:00 Test Item Value Reference Range Comments POC-GLUCOSE METER (BEAKER) 163 mg/dL 70-110 : TESTED AT [address] (test qyck=6701) [place] [address]: Load Test Mechanic/Manager Managed Care [id number] for TELMA RODGERS TROPONIN [id number] 06:47:00 Test Item Value Reference Range Comments TROPONIN I (BEAKER) (test dpww=654) 0.23 ng/mL 0.00-0.03 Troponin I (TnI) levels must be interpreted in the context of the presenting symptoms and the clinical findings. Elevated TnI levels indicate myocardial damage, but are not specific for ischemic heart disease. Elevated TnI levels are seen in patients with other cardiac conditions (including myocarditis and congestive heart failure), and slight TnI elevations occur in patients with other conditions, including sepsis, renal failure, acidosis, acute neurological disease, and persistent tachyarrhythmia.[id number] 06:41:00 Test Item Value Reference Range Comments MAGNESIUM (BEAKER) (test 2.4 mg/dL 1.6-2.6 Specimen slightly hemolyzed ougr=433) BASIC METABOLIC [id number] 06:41:00 Test Item Value Reference Range Comments SODIUM (BEAKER) (test 135 meq/L 136-145 eoyj=263) POTASSIUM (BEAKER) (test 3.8 meq/L 3.5-5.1 Specimen slightly guwa=315) hemolyzed CHLORIDE (BEAKER) (test 105 meq/L 98-107 ennu=913) CO2 (BEAKER) (test 23 meq/L 22-29 ljqi=192) BLOOD UREA NITROGEN 11 mg/dL 7-21 (BEAKER) (test zijr=468) CREATININE (BEAKER) (test 0.60 mg/dL 0.57-1.25 Specimen slightly bufs=362) hemolyzed GLUCOSE RANDOM (BEAKER) 157 mg/dL 70-105 (test lqcz=177) CALCIUM (BEAKER) (test 8.0 mg/dL 8.4-10.2 tdbt=024) EGFR (BEAKER) (test 103 mL/min/1.73 sq m ESTIMATED GFR IS NOT sdgm=4797) ACCURATE CREATININE CLEARANCE IN PREDICTING GLOMERULAR FILTRATION RATE. ESTIMATED GFR IS NOT APPLICABLE FOR DIALYSIS PATIENTS. LIPID [id number] 06:41:00 Test Item Value Reference Range Comments TRIGLYCERIDES (BEAKER) (test 117 mg/dL Specimen slightly hemolyzed hyqp=249) CHOLESTEROL (BEAKER) (test 122 mg/dL Specimen slightly hemolyzed zmfw=437) HDL CHOLESTEROL (BEAKER) (test 36 mg/dL bvri=343) LDL CHOLESTEROL CALCULATED 63 mg/dL (BEAKER) (test pwsq=543) Triglyceride Reference Range: Low Risk <150 Borderline 150- 199 High Risk 200-499 Very High Risk >=500Cholesterol Reference Range: Low Risk <200 Borderline 200-239 High Risk > 240HDL Cholesterol Reference Range: Low Risk >=60 High Risk <40LDL Cholesterol Reference Range: Optimal <100 Near Optimal 100-129 Borderline 130-159 High 160-189 Very High >=[id number] 06:07:00 Test Item Value Reference Range Comments PARTIAL THROMBOPLASTIN TIME (BEAKER) (test 45.1 seconds 22.5-36.0 acuu=987) CBC (HEMOGRAM ONLY)2019-04-25 06:02:00 Test Item Value Reference Range Comments WHITE BLOOD CELL COUNT (BEAKER) (test xuzs=621) 16.7 K/ L 3.5-10.5 RED BLOOD CELL COUNT (BEAKER) (test lppg=690) 4.38 M/ L 3.93-5.22 HEMOGLOBIN (BEAKER) (test nmft=009) 12.7 GM/DL 11.2-15.7 HEMATOCRIT (BEAKER) (test szcj=038) 38.7 % 34.1-44.9 MEAN CORPUSCULAR VOLUME (BEAKER) (test dbsr=348) 88.4 fL 79.4-94.8 MEAN CORPUSCULAR HEMOGLOBIN (BEAKER) (test 29.0 pg 25.6-32.2 yokf=749) MEAN CORPUSCULAR HEMOGLOBIN CONC (BEAKER) (test 32.8 GM/DL 32.2-35.5 czqr=150) RED CELL DISTRIBUTION WIDTH (BEAKER) (test 13.2 % 11.7-14.4 mzrq=887) PLATELET COUNT (BEAKER) (test uktw=088) 325 K/CU MM 150-450 MEAN PLATELET VOLUME (BEAKER) (test mzae=560) 10.1 fL 9.4-12.3 NUCLEATED RED BLOOD CELLS (BEAKER) (test 0 /100 WBC 0-0 emig=756) RAD, CHEST, 1 VIEW, NON [id number] 01:00:00Reason for exam:->transvenous PM placementShould this be performed at the bedside?->YesFINAL REPORT RAD, CHEST, 1 VIEW, NON DEPT INDICATION: transvenous PM placement COMPARISON: None available FINDINGS: Portable frontal view of the chest. IMPRESSION: Support Lines: Right IJ transvenous pacer device with lead overlying the right ventricle. Lungs and pleura: Bibasilar atelectasis. Mild interstitial pulmonary edema pulmonary vascular congestion. Small left pleural effusion. No pneumothorax.Heart and mediastinum: Within normal limits. Additional findings: None available. Signed: Canddio Cameron MDReport Verified Date/Time: 04/25/2019 01:00:56 TROPONIN [id number] 23:56:00 Test Item Value Reference Range Comments TROPONIN I (BEAKER) (test lejn=977) 0.39 ng/mL 0.00-0.03 Troponin I (TnI) levels must be interpreted in the context of the presenting symptoms and the clinical findings. Elevated TnI levels indicate myocardial damage, but are not specific for ischemic heart disease. Elevated TnI levels are seen in patients with other cardiac conditions (including myocarditis and congestive heart failure), and slight TnI elevations occur in patients with other conditions, including sepsis, renal failure, acidosis, acute neurological disease, and persistent tachyarrhythmia.[id number] 23:47:00 Test Item Value Reference Range Comments MAGNESIUM (BEAKER) (test 1.6 mg/dL 1.6-2.6 Specimen slightly hemolyzed yash=675) [id number] 23:47:00 Test Item Value Reference Range Comments PHOSPHORUS (BEAKER) (test 3.2 mg/dL 2.3-4.7 Specimen slightly hemolyzed ugdu=608) COMPREHENSIVE METABOLIC [id number] 23:47:00 Test Item Value Reference Range Comments TOTAL PROTEIN (BEAKER) 6.5 gm/dL 6.0-8.3 Specimen slightly (test hvuz=712) hemolyzed ALBUMIN (BEAKER) (test 3.4 g/dL 3.5-5.0 Specimen slightly vwap=3371) hemolyzed ALKALINE PHOSPHATASE 146 U/L 40-150 (BEAKER) (test kfif=918) BILIRUBIN TOTAL (BEAKER) 0.5 mg/dL 0.2-1.2 Specimen slightly (test zwxi=291) hemolyzed SODIUM (BEAKER) (test 134 meq/L 136-145 xfvs=892) POTASSIUM (BEAKER) (test 4.0 meq/L 3.5-5.1 Specimen slightly trne=216) hemolyzed CHLORIDE (BEAKER) (test 106 meq/L 98-107 bjof=924) CO2 (BEAKER) (test 18 meq/L 22-29 zvte=118) BLOOD UREA NITROGEN 13 mg/dL 7-21 (BEAKER) (test rpmf=831) CREATININE (BEAKER) (test 0.69 mg/dL 0.57-1.25 Specimen slightly cywu=282) hemolyzed GLUCOSE RANDOM (BEAKER) 249 mg/dL 70-105 (test zdkm=988) CALCIUM (BEAKER) (test 8.5 mg/dL 8.4-10.2 dqqz=166) AST (SGOT) (BEAKER) (test 27 U/L 5-34 Specimen slightly zpgd=184) hemolyzed ALT (SGPT) (BEAKER) (test 30 U/L 6-55 Specimen slightly axhy=672) hemolyzed EGFR (BEAKER) (test 88 mL/min/1.73 sq m ESTIMATED GFR IS NOT hvsp=4615) ACCURATE CREATININE CLEARANCE IN PREDICTING GLOMERULAR FILTRATION RATE. ESTIMATED GFR IS NOT APPLICABLE FOR DIALYSIS PATIENTS. PT/[id number] 23:41:00 Test Item Value Reference Range Comments PROTIME (BEAKER) (test llio=815) 13.8 seconds 11.9-14.2 INR (BEAKER) (test vgla=357) 1.1 <=5.9 PARTIAL THROMBOPLASTIN TIME (BEAKER) (test 31.1 seconds 22.5-36.0 oqtx=537) Effective 10/10/2018: PT Reference Range ChangeNew: 11.9-14.2 Previous: 11.7- 14.7RECOMMENDED COUMADIN/WARFARIN INR THERAPY RANGESSTANDARD DOSE: 2.0-3.0 Includes: PROPHYLAXIS for venous thrombosis, systemic embolization; TREATMENT for venous thrombosis and/or pulmonary embolus.HIGH RISK: Target INR is2.5-3.5 for patients wiht mechanical heart valves.Prior to initiating heparinPrior to initiating [id number] 23:41:00 Test Item Value Reference Range Comments PARTIAL THROMBOPLASTIN TIME (BEAKER) (test 31.1 seconds 22.5-36.0 ibhw=651) LACTIC ACID, [id number] 23:41:00 Test Item Value Reference Range Comments LACTATE BLOOD VENOUS (2) 1.1 mmol/L 0.5-2.2 Specimen slightly hemolyzed (BEAKER) (test terp=9955) PLATELET [id number] 23:31:00 Test Item Value Reference Range Comments PLATELET COUNT (BEAKER) (test sfjb=872) 348 K/CU MM 150-450 POCT-GLUCOSE [id number] 23:27:00 Test Item Value Reference Range Comments POC-GLUCOSE METER (BEAKER) 244 mg/dL 70-110 : TESTED AT [facility] [address] [facility] (test kezw=4193) [facility], [address]: Load Test Mechanic/Manager Managed Care [id number] for MARQUITA REBOLLEDO [id number] 18:39:00 Test Item Value Reference Range Comments ACTIVATED CLOTTING TIME 301 sec Reference Range: 74-137 (BEAKER) (test atly=883) seconds, Baseline/TESTED AT [address] [address] [id number] 18:04:00 Test Item Value Reference Range Comments ACTIVATED CLOTTING TIME 252 sec Reference Range: 74-137 (BEAKER) (test glem=162) seconds, Baseline/TESTED AT [address] [address] [id number] 17:49:00 Test Item Value Reference Range Comments ACTIVATED CLOTTING TIME 235 sec Reference Range: 74-137 (BEAKER) (test hvdl=911) seconds, Baseline/TESTED AT [address] [address] POCT-GLUCOSE [id number] 13:18:00 Test Item Value Reference Range Comments POC-GLUCOSE METER (BEAKER) 187 mg/dL 70-110 : TESTED AT [address] (test egpd=5653) [facility], [address]: Load Test Mechanic/Manager Managed Care [id number] for ANANDA CORTEZ [id number] 12:52:00 Test Item Value Reference Range Comments PARTIAL THROMBOPLASTIN TIME (BEAKER) (test 42.7 seconds 22.5-36.0 ybtg=515) POCT-GLUCOSE [id number] 09:59:00 Test Item Value Reference Range Comments POC-GLUCOSE METER (BEAKER) 252 mg/dL 70-110 : TESTED AT [address] (test fjke=8448) [facility], [address]: Load Test Mechanic/Manager Managed Care [id number] for ANANDA CORTEZ HEMOGLOBIN [id number] 08:35:00 Test Item Value Reference Range Comments HEMOGLOBIN A1C (BEAKER) (test kizs=773) 11.5 % 4.3-6.1 [id number] 06:09:00 Test Item Value Reference Range Comments PARTIAL THROMBOPLASTIN TIME (BEAKER) (test 39.5 seconds 22.5-36.0 tkwh=815) BASIC METABOLIC [id number] 23:24:00 Test Item Value Reference Range Comments SODIUM (BEAKER) (test 136 meq/L 136-145 qtky=006) POTASSIUM (BEAKER) (test 3.5 meq/L 3.5-5.1 udnw=901) CHLORIDE (BEAKER) (test 105 meq/L 98-107 wyns=054) CO2 (BEAKER) (test 23 meq/L 22-29 shie=115) BLOOD UREA NITROGEN 13 mg/dL 7-21 (BEAKER) (test zrcm=007) CREATININE (BEAKER) (test 0.73 mg/dL 0.57-1.25 szpk=871) GLUCOSE RANDOM (BEAKER) 195 mg/dL 70-105 (test dmjh=127) CALCIUM (BEAKER) (test 8.6 mg/dL 8.4-10.2 dvxw=877) EGFR (BEAKER) (test 82 mL/min/1.73 sq m ESTIMATED GFR IS NOT xaur=9942) ACCURATE CREATININE CLEARANCE IN PREDICTING GLOMERULAR FILTRATION RATE. ESTIMATED GFR IS NOT APPLICABLE FOR DIALYSIS PATIENTS. [id number] 23:15:00 Test Item Value Reference Range Comments PARTIAL THROMBOPLASTIN TIME (BEAKER) (test 28.7 seconds 22.5-36.0 dpyz=683) Prior to initiating heparinPROTHROMBIN TIME/[id number] 23:14:00 Test Item Value Reference Range Comments PROTIME (BEAKER) (test jcau=691) 13.3 seconds 11.9-14.2 INR (BEAKER) (test urml=889) 1.1 <=5.9 Effective 10/10/2018: PT Reference Range ChangeNew: 11.9-14.2 Previous: 11.7- 14.7RECOMMENDED COUMADIN/WARFARIN INR THERAPY RANGESSTANDARD DOSE: 2.0-3.0 Includes: PROPHYLAXIS for venous thrombosis, systemic embolization; TREATMENT for venous thrombosis and/or pulmonary embolus.HIGH RISK: Target INR is2.5-3.5 for patients wiht mechanical heart valves.Prior to initiating [id number] 23:14:00 Test Item Value Reference Range Comments PARTIAL THROMBOPLASTIN TIME (BEAKER) (test 28.6 seconds 22.5-36.0 wyth=801) 6 hours after starting heparin infusion and as indicated per sliding scaleCBC W/ PLT COUNT & AUTO [id number] 23:10:00 Test Item Value Reference Range Comments WHITE BLOOD CELL COUNT (BEAKER) (test oaph=707) 13.5 K/ L 3.5-10.5 RED BLOOD CELL COUNT (BEAKER) (test ulzc=035) 4.86 M/ L 3.93-5.22 HEMOGLOBIN (BEAKER) (test lcvp=872) 14.2 GM/DL 11.2-15.7 HEMATOCRIT (BEAKER) (test wdwm=486) 42.5 % 34.1-44.9 MEAN CORPUSCULAR VOLUME (BEAKER) (test ncsu=277) 87.4 fL 79.4-94.8 MEAN CORPUSCULAR HEMOGLOBIN (BEAKER) (test 29.2 pg 25.6-32.2 ceoh=658) MEAN CORPUSCULAR HEMOGLOBIN CONC (BEAKER) (test 33.4 GM/DL 32.2-35.5 cdts=939) RED CELL DISTRIBUTION WIDTH (BEAKER) (test 13.2 % 11.7-14.4 xcmz=383) PLATELET COUNT (BEAKER) (test avkk=526) 367 K/CU MM 150-450 MEAN PLATELET VOLUME (BEAKER) (test yxrv=198) 10.0 fL 9.4-12.3 NUCLEATED RED BLOOD CELLS (BEAKER) (test 0 /100 WBC 0-0 cavb=939) NEUTROPHILS RELATIVE PERCENT (BEAKER) (test 55 % gguh=624) LYMPHOCYTES RELATIVE PERCENT (BEAKER) (test 37 % yzaw=988) MONOCYTES RELATIVE PERCENT (BEAKER) (test 6 % dtfm=216) EOSINOPHILS RELATIVE PERCENT (BEAKER) (test 2 % dobk=806) BASOPHILS RELATIVE PERCENT (BEAKER) (test 0 % rhqg=145) NEUTROPHILS ABSOLUTE COUNT (BEAKER) (test 7.44 K/ L 1.56-6.13 nvjh=370) LYMPHOCYTES ABSOLUTE COUNT (BEAKER) (test 4.94 K/ L 1.18-3.74 xgxs=712) MONOCYTES ABSOLUTE COUNT (BEAKER) (test 0.77 K/ L 0.24-0.36 nfea=053) EOSINOPHILS ABSOLUTE COUNT (BEAKER) (test 0.22 K/ L 0.04-0.36 kvfg=116) BASOPHILS ABSOLUTE COUNT (BEAKER) (test 0.05 K/ L 0.01-0.08 smwg=110) IMMATURE GRANULOCYTES-RELATIVE PERCENT (BEAKER) 0 % 0-1 (test omwg=9729) POCT-GLUCOSE [id number] 22:59:00 Test Item Value Reference Range Comments POC-GLUCOSE METER (BEAKER) 194 mg/dL 70-110 : TESTED AT [facility] [address] [facility] (test smph=[id number]) [facility], [address]: Load Test Mechanic/Manager Managed Care [id number] for Mary Kate Carey
[2019-04-30] MEDS ORDERED: CODEINE 30MG/APAP 300MG TAB ONE (15:24)
[2019-04-30 15:26] LABS: Absolute Lymphocytes (CBC) 3.6 K/uL (0.7-4.9); Basophils % 1.4 % (0-1.3); Hematocrit 31.6 % (36.0-45.0); Lymphocytes % 27.2 % (15.3-44.8); RBC Red Blood Cell Count 3.65 M/uL (3.86-4.86)
--- NOTE | 2019-04-30 15:46 | ER ---
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 i need to get my pacemaker checked out. Transition of care: patient was not received from another setting of care. Onset of symptoms was April 30, 2019. Risk Assessment: Do you want to hurt yourself or someone else? Patient reports no desire to harm self or others. Initial Sepsis Screen: Does the patient meet any 2 criteria? No. Patient's initial sepsis screen is negative. Does the patient have a suspected source of infection? No. Patient's initial sepsis screen is negative. Care prior to arrival: None. 14:19 Method Of Arrival: Ambulatory tw2 14:19 Acuity: WILMAR 2 tw2 Triage Assessment: 14:22 General: Appears in no apparent distress. Behavior is calm, cooperative, appropriate tw2 for age. Pain: Complains of pain in anterior aspect of left upper chest. Historical: - Allergies: 14:26 No Known Allergies; tw2 - Home Meds: 14:26 aspirin 81 mg Oral chew 1 tab once daily [Active]; atorvastatin 80 mg oral tab 1 tab tw2 once daily [Active]; clopidogrel 75 mg oral tab 1 tab once daily [Active]; lisinopril 2.5 mg Oral tab 1 tab once daily [Active]; metoprolol tartrate 25 mg Oral tab 1 tab once daily [Active]; pantoprazole 40 mg oral TbEC 1 tab once daily [Active]; hydrocodone-acetaminophen 10-325 mg Oral tab 1 tab every 4 hours [Active]; glargine insuline 100 units/ml SQ [Active]; lispro insulin 100 unit/ml [Active]; - PMHx: 14:26 Clots in the past; Diabetes - IDDM; tw2 - PSHx: 14:26 Back x 2; tw2 - Immunization history:: Adult Immunizations. - Social history:: Smoking status: Patient uses tobacco products, smokes one pack cigarettes per day. Patient/guardian denies using alcohol, street drugs, The patient lives with family. - Ebola Screening: : Patient denies travel to an Ebola-affected area in the 21 days before illness onset. - Family history:: not pertinent. Screenin:37 Abuse screen: Denies threats or abuse. Nutritional screening: No deficits noted. tw2 Tuberculosis screening: No symptoms or risk factors identified. Fall Risk None identified. Assessment: 14:25 General: Appears in no apparent distress. uncomfortable, Behavior is cooperative, bp appropriate for age, anxious. Pain: Complains of pain in anterior aspect of left upper chest. Neuro: No deficits noted. Cardiovascular: Rhythm is sinus rhythm. Respiratory: No deficits noted. GI: No signs and/or symptoms were reported involving the gastrointestinal system. : No signs and/or symptoms were reported regarding the genitourinary system. EENT: No deficits noted. Derm: Bruising that is dark purple, on anterior aspect of left upper chest. Musculoskeletal: No deficits noted. 16:06 Reassessment: PT D/C HOME AMBULATORY WITH FAMILY, DX WITH CHEST WALL PAIN. bp Vital Signs: 14:22 BP 118 / 66; Pulse 77; Resp 17; Temp 98.1(TE); Pulse Ox 100% on R/A; Weight 73.48 kg tw2 (R); Height 5 ft. 8 in. (172.72 cm) (R); Pain 5/10; 16:07 BP 110 / 87; Pulse 85; Resp 16; Temp 98; Pulse Ox 98% ; bp 14:22 Body Mass Index 24.63 (73.48 kg, 172.72 cm) tw2 ED Course: 14:15 Patient arrived in ED. am2 14:22 Triage completed. tw2 14:22 Arm band placed on. tw2 14:22 EKG completed in triage. Results shown to MD. tw2 14:26 Placed in gown. Bed in low position. Adult w/ patient. Warm blanket given. tw2 14:32 Dao Montaño MD is Attending Physician. ma2 15:00 Inserted saline lock: 22 gauge in right forearm, using aseptic technique. Blood bp collected. 15:11 Initial lab(s) drawn, by me, sent to lab. Inserted saline lock: 22 gauge in right dh3 forearm, using aseptic technique. Blood collected. 15:26 Jovanny Pérez, RN is Primary Nurse. bp 16:06 No provider procedures requiring assistance completed. IV discontinued, intact, bp bleeding controlled, No redness/swelling at site. Pressure dressing applied. Wound care: to laceration located on anterior aspect of left upper chest was dressed with 4X4s, Patient tolerated well. Administered Medications: 15:10 Drug: Tylenol #3 (300 mg-30 mg) 1 tablet Route: PO; bp 16:08 Follow up: Response: Pain is decreased bp Outcome: 15:44 Discharge ordered by . ma2 16:07 Discharged to home ambulatory, with family. bp 16:07 Condition: stable 16:07 Discharge instructions given to patient, Instructed on discharge instructions, follow up and referral plans. medication usage, wound care, Demonstrated understanding of instructions, follow-up care, medications, wound care, Prescriptions given X 1. 16:08 Patient left the ED. bp Signatures: Rosamaria Daniels RN RN 2 Liebrty Delong 2 Elizabeth Parisi [facility] Jovanny Pérez, RN RN bp Dao Montaño MD MD [facility]
--- NOTE | 2019-04-30 15:47 | EDPHYS ---
Physician Documentation [facility] Name: Blanca Estrada Age: 59 yrs Sex: Female : 1960 Arrival Date: 04/30/2019 Time: 14:15 Bed 6 Private MD: ED Physician Dao Montaño HPI: 04/30 15:39 This 59 yrs old Female presents to ER via Ambulatory with complaints of pain ma2 to pacemaker area. 15:39 Onset: The symptoms/episode began/occurred gradually, 1 week(s) ago. Severity of ma2 symptoms: At their worst the symptoms were mild. she has mild discofort since the surgery that is getting better, she is here because she want the wound to be checked, no new symptoms . Historical: - Allergies: 14:26 No Known Allergies; tw2 - Home Meds: 14:26 aspirin 81 mg Oral chew 1 tab once daily [Active]; atorvastatin 80 mg oral tab 1 tab tw2 once daily [Active]; clopidogrel 75 mg oral tab 1 tab once daily [Active]; lisinopril 2.5 mg Oral tab 1 tab once daily [Active]; metoprolol tartrate 25 mg Oral tab 1 tab once daily [Active]; pantoprazole 40 mg oral TbEC 1 tab once daily [Active]; hydrocodone-acetaminophen 10-325 mg Oral tab 1 tab every 4 hours [Active]; glargine insuline 100 units/ml SQ [Active]; lispro insulin 100 unit/ml [Active]; - PMHx: 14:26 Clots in the past; Diabetes - IDDM; tw2 - PSHx: 14:26 Back x 2; tw2 - Immunization history:: Adult Immunizations. - Social history:: Smoking status: Patient uses tobacco products, smokes one pack cigarettes per day. Patient/guardian denies using alcohol, street drugs, The patient lives with family. - Ebola Screening: : Patient denies travel to an Ebola-affected area in the 21 days before illness onset. - Family history:: not pertinent. ROS: 15:39 Constitutional: Negative for fever, chills, and weight loss. ma2 15:39 All other systems are negative. Exam: 15:39 Constitutional: This is a well developed, well nourished patient who is awake, alert, ma2 and in no acute distress. Chest/axilla: Normal chest wall appearance and motion. surgical site is dry, in good order no induration, Nontender with no deformity. No lesions are appreciated. Cardiovascular: Regular rate and rhythm with a normal S1 and S2. No gallops, murmurs, or rubs. Normal PMI, no JVD. No pulse deficits. Respiratory: Lungs have equal breath sounds bilaterally, clear to auscultation and percussion. No rales, rhonchi or wheezes noted. No increased work of breathing, no retractions or nasal flaring. Abdomen/GI: Soft, non-tender, with normal bowel sounds. No distension or tympany. No guarding or rebound. No evidence of tenderness throughout. Female : Normal external genitalia. Skin: Warm, dry with normal turgor. Normal color with no rashes, no lesions, and no evidence of cellulitis. MS/ Extremity: Pulses equal, no cyanosis. Neurovascular intact. Full, normal range of motion. Neuro: Awake and alert, GCS 15, oriented to person, place, time, and situation. Cranial nerves II-XII grossly intact. Motor strength 5/5 in all extremities. Sensory grossly intact. Cerebellar exam normal. Normal gait. Vital Signs: 14:22 BP 118 / 66; Pulse 77; Resp 17; Temp 98.1(TE); Pulse Ox 100% on R/A; Weight 73.48 kg tw2 (R); Height 5 ft. 8 in. (172.72 cm) (R); Pain 5/10; 16:07 BP 110 / 87; Pulse 85; Resp 16; Temp 98; Pulse Ox 98% ; bp 14:22 Body Mass Index 24.63 (73.48 kg, 172.72 cm) tw2 MDM: 14:32 Patient medically screened. ma2 15:39 Differential Diagnosis chest wall infection, unlikely cellulitits or abscess, . Data ma2 reviewed: vital signs, nurses notes. Counseling: I had a detailed discussion with the patient and/or guardian regarding: the historical points, exam findings, and any diagnostic results supporting the discharge/admit diagnosis, the presence of at least one elevated blood pressure reading (>120/80) during this emergency department visit, the need for outpatient follow up. Medical screen evaluation completed. EMTALA emergency medical condition absent. Medical screen evaluation completed. EMTALA emergency medical condition absent. Response to treatment: There is no appreciated change of the patient's symptoms at this time. 15:43 ED course: no chest pain . tx2 04/30 14:51 Order name: CBC with Diff tx2 04/30 14:51 Order name: CMP tx2 04/30 14:51 Order name: Chest Single View XRAY tx2 04/30 15:29 Order name: CBC with Automated Diff; Complete Time: 15:38 EDMS 04/30 15:54 Order name: Comprehensive Metabolic Panel EDGA Administered Medications: 15:10 Drug: Tylenol #3 (300 mg-30 mg) 1 tablet Route: PO; bp 16:08 Follow up: Response: Pain is decreased bp Disposition: 04/30/19 15:44 Discharged to Home. Impression: Chest pain, unspecified. - Condition is Stable. - Discharge Instructions: Chest Wall Pain. - Prescriptions for Tylenol- Codeine #3 300-30 mg Oral Tablet - take 2 tablet by ORAL route every 6 hours As needed; 6 tablet. - Medication Reconciliation Form, Thank You Letter, Antibiotic Education, Prescription Opioid Use form. - Follow up: Private Physician; When: Tomorrow; Reason: Continuance of care. Signatures: Dispatcher [employer] [facility] Rosamaria Daniels RN RN tw2 Jovanny Pérez RN RN bp Dao Montaño MD MD ma2 Corrections: (The following items were deleted from the chart) 16:08 15:44 04/30/2019 15:44 Discharged to Home. Impression: Chest pain, unspecified. bp Condition is Stable. Prescriptions for Tylenol-Codeine #3 300-30 mg Oral Tablet - take 2 tablet by ORAL route every 6 hours As needed; 6 tablet. and Forms are Medication Reconciliation Form, Thank You Letter, Antibiotic Education, Prescription Opioid Use. Follow up: Private Physician; When: Tomorrow; Reason: Continuance of care. ma2
[2019-04-30 15:54] LABS: ALT/SGPT 43 U/L (12-78); AST/SGOT 22 U/L (15-37); Alkaline Phosphatase 139 U/L (45-117); BUN Blood Urea Nitrogen 14 mg/dL (7-18); Bicarbonate 27 mmol/L (21-32); Bilirubin Total 0.3 mg/dL (0.2-1.0); Glucose Level 284 mg/dL (74-106); Potassium 3.3 mmol/L (3.5-5.1); Protein, Total 6.7 g/dL (6.4-8.2); Sodium Level 141 mmol/L (136-145)
[2019-04-30 16:19] VITALS: BP 110/87; TEMP 98; O2SAT 98
--- NOTE | 2019-04-30 16:22 | RAD REPORT ---
EXAM DESCRIPTION: RAD - Chest Single View - 04/30/2019 3:16 pm CLINICAL HISTORY: Chest wall pain, recent pacemaker placement COMPARISON: April 20 TECHNIQUE: AP portable chest image was obtained 1514 hours . FINDINGS: No acute lung parenchymal process. Interstitial pattern is not substantially different fro m comparison. No acute failure or volume overload. Left subclavian pacemaker has been placed. Skin st aples are still positioned. No acute findings seen. Heart and vasculature are normal. No measurable p leural effusion and no pneumothorax. No acute bony abnormality seen. No acute aortic findings suspect ed. IMPRESSION: No acute cardiopulmonary process. No significant change from comparison.
--- NOTE | 2019-05-01 07:54 | EKG ---
Test Date: 2019-04-30 Test Time: 14:23:44 Customizer: WHITNEY MEASUREMENT RESULTS: Intervals: Rate: 75 ID: [id number] QRSD: 86 QT: 384 QTc: 428 [place]: P: 67 ID: [id number] QRS: 45 T: 54 INTERPRETIVE STATEMENTS: Sinus rhythm with fusion complexes T wave abnormality, consider anterior ischemia Abnormal ECG Compared to ECG 04/21/2019 06:34:12 Fusion complex(es) now present T-wave abnormality now present Possible ischemia now present Electronically Signed On 05-01-19 07:54:30 SENIOR BIOINFORMATICS SCIENTIST by Darinel Farris
== END 2019-04-30 16:08 | disposition home or self-care (01) ==
LOC: ER 14:13
DX: R07.9 Chest pain, unspecified (principal); F17.210 Nicotine dependence, cigarettes, uncomplicated; E11.9 Type 2 diabetes mellitus without complications; Z79.82 Long term (current) use of aspirin; Z79.4 Long term (current) use of insulin; Z95.0 Presence of cardiac pacemaker
CPT/HCPCS: 36415; 71045; 80053; 85025; 93005; 99284

== ENCOUNTER 2019-05-11 12:36 | Emergency (ER) | payer SELFPAY ==
--- OUTSIDE RECORDS SUMMARY | 2019-05-11 12:39 | XMS REPORT ---
:1960 Author Organization [facility] Address [address] [place] [address] Care Team Providers Name Role Phone GILES MCDONALD Unavailable Unavailable Problems This patient has no known problems. Allergies, Adverse Reactions, Alerts This patient has no known allergies or adverse reactions. Medications This patient has no known medications. Results Test Description Test Time Test Comments Text Results Atomic Results Result Comments ISLET CELL AB SCR 2019-05-06 07:43:00 Test Item Value Reference Range Comments ISLET CELL AB AUTOVERIFICATION (test Refer to individual Islet Cell Ab swhy=8347) and/or Islet Cell Ab Titer results. POCT-GLUCOSE [id number] 12:34:00 Test Item Value Reference Range Comments POC-GLUCOSE METER (BEAKER) 208 mg/dL 70-110 : TESTED AT [facility] [address] (test fwbi=8428) [facility], [address]: Lithograph Printer/Legal Internship [id number] for MARY MORRIS POCT-GLUCOSE [id number] 08:26:00 Test Item Value Reference Range Comments POC-GLUCOSE METER (BEAKER) 145 mg/dL 70-110 : TESTED AT [facility] [address] (test nccr=7527) [facility], [address]: Lithograph Printer/Legal Internship [id number] for HILARY PARKER [id number] 06:31:00 Test Item Value Reference Range Comments MAGNESIUM (BEAKER) (test ylrb=411) 1.6 mg/dL 1.6-2.6 BUN AND [id number] 06:31:00 Test Item Value Reference Range Comments BLOOD UREA NITROGEN 12 mg/dL 7-21 (BEAKER) (test lnim=835) CREATININE (BEAKER) (test 0.61 mg/dL 0.57-1.25 oaoq=748) EGFR (BEAKER) (test 101 mL/min/1.73 sq m ESTIMATED GFR IS NOT uzrz=8228) ACCURATE CREATININE CLEARANCE IN PREDICTING GLOMERULAR FILTRATION RATE. ESTIMATED GFR IS NOT APPLICABLE FOR DIALYSIS PATIENTS. BASIC METABOLIC [id number] 06:31:00 Test Item Value Reference Range Comments SODIUM (BEAKER) (test 137 meq/L 136-145 cyvg=533) POTASSIUM (BEAKER) (test 3.5 meq/L 3.5-5.1 paco=349) CHLORIDE (BEAKER) (test 105 meq/L 98-107 mjlz=181) CO2 (BEAKER) (test 27 meq/L 22-29 wkkc=121) BLOOD UREA NITROGEN 12 mg/dL 7-21 (BEAKER) (test uaok=657) CREATININE (BEAKER) (test 0.61 mg/dL 0.57-1.25 dlyo=038) GLUCOSE RANDOM (BEAKER) 128 mg/dL 70-105 (test rfxr=294) CALCIUM (BEAKER) (test 8.1 mg/dL 8.4-10.2 bjjr=066) EGFR (BEAKER) (test 101 mL/min/1.73 sq m ESTIMATED GFR IS NOT wmoz=3864) ACCURATE CREATININE CLEARANCE IN PREDICTING GLOMERULAR FILTRATION RATE. ESTIMATED GFR IS NOT APPLICABLE FOR DIALYSIS PATIENTS. CBC (HEMOGRAM ONLY)2019-04-28 05:33:00 Test Item Value Reference Range Comments WHITE BLOOD CELL COUNT (BEAKER) (test hxwi=716) 13.4 K/ L 3.5-10.5 RED BLOOD CELL COUNT (BEAKER) (test oqba=653) 3.66 M/ L 3.93-5.22 HEMOGLOBIN (BEAKER) (test dvbf=223) 10.6 GM/DL 11.2-15.7 HEMATOCRIT (BEAKER) (test uquv=007) 32.9 % 34.1-44.9 MEAN CORPUSCULAR VOLUME (BEAKER) (test bsdf=596) 89.9 fL 79.4-94.8 MEAN CORPUSCULAR HEMOGLOBIN (BEAKER) (test 29.0 pg 25.6-32.2 qzgf=198) MEAN CORPUSCULAR HEMOGLOBIN CONC (BEAKER) (test 32.2 GM/DL 32.2-35.5 dfaq=392) RED CELL DISTRIBUTION WIDTH (BEAKER) (test 13.5 % 11.7-14.4 qtuo=868) PLATELET COUNT (BEAKER) (test cawx=153) 319 K/CU MM 150-450 MEAN PLATELET VOLUME (BEAKER) (test ilsf=122) 9.9 fL 9.4-12.3 NUCLEATED RED BLOOD CELLS (BEAKER) (test 0 /100 WBC 0-0 bfcj=677) POCT-GLUCOSE [id number] 22:02:00 Test Item Value Reference Range Comments POC-GLUCOSE METER (BEAKER) 214 mg/dL 70-110 : TESTED AT [address] (test lbcz=3210) [facility], [address]: Lithograph Printer/Legal Internship [id number] for KAREN VEGA POCT-GLUCOSE [id number] 17:34:00 Test Item Value Reference Range Comments POC-GLUCOSE METER (BEAKER) 178 mg/dL 70-110 : TESTED AT [address] (test dkkg=1869) [facility], [address]: Lithograph Printer/Legal Internship [id number] for MARY MORRIS POCT-GLUCOSE [id number] 17:33:00 Test Item Value Reference Range Comments POC-GLUCOSE METER (BEAKER) 222 mg/dL 70-110 : TESTED AT [address] (test vjer=9918) [facility], [address]: Lithograph Printer/Legal Internship [id number] for SRIKANTH MCGHEE POCT-GLUCOSE [id number] 08:07:00 Test Item Value Reference Range Comments POC-GLUCOSE METER (BEAKER) 174 mg/dL 70-110 : TESTED AT [address] (test zbhz=1890) [facility], [address]: Lithograph Printer/Legal Internship [id number] for SRIKANTH MCGHEE RAD, CHEST, 1 VIEW, NON [id number] 08:04:00Reason for exam:->CIED ImplantationIs the patient ?->UnknownShould [...] Verified Date/Time: 04/27/2019 08:04: 20 Reading Location: [facility] C013V Neuro Reading Room [id number] 06:48:00 Test Item Value Reference Range Comments MAGNESIUM (BEAKER) (test ryjx=157) 1.7 mg/dL 1.6-2.6 BUN AND [id number] 06:48:00 Test Item Value Reference Range Comments BLOOD UREA NITROGEN 11 mg/dL 7-21 (BEAKER) (test zgna=407) CREATININE (BEAKER) (test 0.67 mg/dL 0.57-1.25 ylbh=972) EGFR (BEAKER) (test 91 mL/min/1.73 sq m ESTIMATED GFR IS NOT vuoy=5666) ACCURATE CREATININE CLEARANCE IN PREDICTING GLOMERULAR FILTRATION RATE. ESTIMATED GFR IS NOT APPLICABLE FOR DIALYSIS PATIENTS. BASIC METABOLIC [id number] 06:48:00 Test Item Value Reference Range Comments SODIUM (BEAKER) (test 138 meq/L 136-145 kqou=368) POTASSIUM (BEAKER) (test 4.0 meq/L 3.5-5.1 glhe=600) CHLORIDE (BEAKER) (test 105 meq/L 98-107 lamz=759) CO2 (BEAKER) (test 28 meq/L 22-29 pmox=029) BLOOD UREA NITROGEN 11 mg/dL 7-21 (BEAKER) (test kplm=129) CREATININE (BEAKER) (test 0.67 mg/dL 0.57-1.25 lvwx=736) GLUCOSE RANDOM (BEAKER) 184 mg/dL 70-105 (test ljem=951) CALCIUM (BEAKER) (test 8.6 mg/dL 8.4-10.2 busm=052) EGFR (BEAKER) (test 91 mL/min/1.73 sq m ESTIMATED GFR IS NOT hrme=8718) ACCURATE CREATININE CLEARANCE IN PREDICTING GLOMERULAR FILTRATION RATE. ESTIMATED GFR IS NOT APPLICABLE FOR DIALYSIS PATIENTS. CBC (HEMOGRAM ONLY)2019-04-27 06:25:00 Test Item Value Reference Range Comments WHITE BLOOD CELL COUNT (BEAKER) (test zhsx=195) 13.2 K/ L 3.5-10.5 RED BLOOD CELL COUNT (BEAKER) (test hzll=826) 4.10 M/ L 3.93-5.22 HEMOGLOBIN (BEAKER) (test jsax=120) 12.0 GM/DL 11.2-15.7 HEMATOCRIT (BEAKER) (test sudd=662) 37.0 % 34.1-44.9 MEAN CORPUSCULAR VOLUME (BEAKER) (test kwcj=184) 90.2 fL 79.4-94.8 MEAN CORPUSCULAR HEMOGLOBIN (BEAKER) (test 29.3 pg 25.6-32.2 cthv=369) MEAN CORPUSCULAR HEMOGLOBIN CONC (BEAKER) (test 32.4 GM/DL 32.2-35.5 lajv=552) RED CELL DISTRIBUTION WIDTH (BEAKER) (test 13.7 % 11.7-14.4 jqyk=518) PLATELET COUNT (BEAKER) (test ktsf=311) 321 K/CU MM 150-450 MEAN PLATELET VOLUME (BEAKER) (test umif=145) 10.3 fL 9.4-12.3 NUCLEATED RED BLOOD CELLS (BEAKER) (test 0 /100 WBC 0-0 zbje=688) POCT-GLUCOSE [id number] 21:23:00 Test Item Value Reference Range Comments POC-GLUCOSE METER (BEAKER) 209 mg/dL 70-110 : TESTED AT [place] [id number] (test ennb=6060) [facility], [address]: Lithograph Printer/Legal Internship [id number] for SILVIA KAREN POCT-GLUCOSE [id number] 18:13:00 Test Item Value Reference Range Comments POC-GLUCOSE METER (BEAKER) 280 mg/dL 70-110 : TESTED AT [address] (test fjis=6885) [facility], [address]: Lithograph Printer/Legal Internship [id number] for GEOFF MONTIEL RAD, CHEST, 1 VIEW, NON [id number] 14:36:00Reason for exam:->CIED ImplantationShould this be performed at the bedside?->YesFINAL REPORT INDICATION: CIED Implantation COMPARISON: None TECHNIQUE : Singlefrontal view of the chest. FINDINGS: Lungs and pleura: Lungs are hypoinflated. No effusion.Heart andmediastinum: Normal heart size. Unremarkable mediastinal contours.Osseous structures: No acute abnormality.Other: Pacer device. IMPRESSION: No pneumothorax Signed: Amaris aLyepannette Verified Date/Time: 04/26/2019 14:36:47 Reading Location: [facility] Radiology Reading Room Electronically signed by: AMARIS LAY MD on 2018 02:36 PMPOCT-GLUCOSE [id number] 10:40:00 Test Item Value Reference Range Comments POC-GLUCOSE METER (BEAKER) 204 mg/dL 70-110 : TESTED AT [facility] [address] (test gdtr=6116) [facility], [address]: Lithograph Printer/Legal Internship [id number] for JOURDAN TOUSSAINT [id number] 04:42:00 Test Item Value Reference Range Comments MAGNESIUM (BEAKER) (test dgew=410) 1.8 mg/dL 1.6-2.6 BASIC METABOLIC [id number] 04:42:00 Test Item Value Reference Range Comments SODIUM (BEAKER) (test 135 meq/L 136-145 ystd=398) POTASSIUM (BEAKER) (test 3.4 meq/L 3.5-5.1 gemm=341) CHLORIDE (BEAKER) (test 106 meq/L 98-107 merk=416) CO2 (BEAKER) (test 22 meq/L 22-29 xylq=344) BLOOD UREA NITROGEN 8 mg/dL 7-21 (BEAKER) (test jhsd=621) CREATININE (BEAKER) (test 0.66 mg/dL 0.57-1.25 wwtl=026) GLUCOSE RANDOM (BEAKER) 242 mg/dL 70-105 (test zdvt=565) CALCIUM (BEAKER) (test 8.4 mg/dL 8.4-10.2 xzlq=932) EGFR (BEAKER) (test 92 mL/min/1.73 sq m ESTIMATED GFR IS NOT nlyr=8800) ACCURATE CREATININE CLEARANCE IN PREDICTING GLOMERULAR FILTRATION RATE. ESTIMATED GFR IS NOT APPLICABLE FOR DIALYSIS PATIENTS. CBC (HEMOGRAM ONLY)2019-04-26 04:18:00 Test Item Value Reference Range Comments WHITE BLOOD CELL COUNT (BEAKER) (test qwkq=210) 14.7 K/ L 3.5-10.5 RED BLOOD CELL COUNT (BEAKER) (test lotp=360) 4.67 M/ L 3.93-5.22 HEMOGLOBIN (BEAKER) (test hmal=420) 13.5 GM/DL 11.2-15.7 HEMATOCRIT (BEAKER) (test gfvj=236) 41.4 % 34.1-44.9 MEAN CORPUSCULAR VOLUME (BEAKER) (test ryct=282) 88.7 fL 79.4-94.8 MEAN CORPUSCULAR HEMOGLOBIN (BEAKER) (test 28.9 pg 25.6-32.2 bjkn=683) MEAN CORPUSCULAR HEMOGLOBIN CONC (BEAKER) (test 32.6 GM/DL 32.2-35.5 jkdn=639) RED CELL DISTRIBUTION WIDTH (BEAKER) (test 13.4 % 11.7-14.4 awxc=606) PLATELET COUNT (BEAKER) (test wvmi=831) 330 K/CU MM 150-450 MEAN PLATELET VOLUME (BEAKER) (test qfci=223) 10.2 fL 9.4-12.3 NUCLEATED RED BLOOD CELLS (BEAKER) (test 0 /100 WBC 0-0 iupr=884) POCT-GLUCOSE [id number] 21:56:00 Test Item Value Reference Range Comments POC-GLUCOSE METER (BEAKER) 381 mg/dL 70-110 : Notified RN/MD: TESTED AT (test eqvo=4771) [facility] [address] [place] [address], [address]: Lithograph Printer/[employer] Internship [id number] for SONIA FRANK TROPONIN [id number] 17:20:00 Test Item Value Reference Range Comments TROPONIN I (BEAKER) (test kidg=988) 0.12 ng/mL 0.00-0.03 Troponin I (TnI) levels [...] acidosis, acute neurological disease, and persistent tachyarrhythmia.POCT-GLUCOSE [id number] 11:55:00 Test Item Value Reference Range Comments POC-GLUCOSE METER (BEAKER) 163 mg/dL 70-110 : TESTED AT [facility] [address] [place] [address] (test kgtr=3778) [facility], [address]: Lithograph Printer/Legal Internship [id number] for TELMA RODGERS CREATINE KINASE (CK)2019-04-25 11:26:00 Test Item Value Reference Range Comments CREATINE KINASE TOTAL (YOON) (test qjef=542) 63 U/L 29-200 TROPONIN [id number] 10:05:00 Test Item Value Reference Range Comments TROPONIN I (YOON) (test joxk=428) 0.18 ng/mL 0.00-0.03 Troponin I (TnI) levels [...] acidosis, acute neurological disease, and persistent tachyarrhythmia.POCT-GLUCOSE [id number] 08:18:00 Test Item Value Reference Range Comments POC-GLUCOSE METER (YOON) 163 mg/dL 70-110 : TESTED AT [address] (test fqbx=3635) [facility], [address]: Lithograph Printer/Legal Internship [id number] for TELMA RODGERS TROPONIN [id number] 06:47:00 Test Item Value Reference Range Comments TROPONIN I (YOON) (test qwjo=685) 0.23 ng/mL 0.00-0.03 Troponin I (TnI) levels [...] failure, acidosis, acute neurological disease, and persistent tachyarrhythmia.[id number] 06:41:00 Test Item Value Reference Range Comments MAGNESIUM (BEAKER) (test 2.4 mg/dL 1.6-2.6 Specimen slightly hemolyzed ztol=890) BASIC METABOLIC [id number] 06:41:00 Test Item Value Reference Range Comments SODIUM (BEAKER) (test 135 meq/L 136-145 lfra=266) POTASSIUM (BEAKER) (test 3.8 meq/L 3.5-5.1 Specimen slightly vike=135) hemolyzed CHLORIDE (BEAKER) (test 105 meq/L 98-107 lxvn=299) CO2 (BEAKER) (test 23 meq/L 22-29 dixm=130) BLOOD UREA NITROGEN 11 mg/dL 7-21 (BEAKER) (test tdhh=591) CREATININE (BEAKER) (test 0.60 mg/dL 0.57-1.25 Specimen slightly tzun=241) hemolyzed GLUCOSE RANDOM (BEAKER) 157 mg/dL 70-105 (test hyos=463) CALCIUM (BEAKER) (test 8.0 mg/dL 8.4-10.2 todz=571) EGFR (BEAKER) (test 103 mL/min/1.73 sq m ESTIMATED GFR IS NOT tpwu=5346) ACCURATE CREATININE CLEARANCE IN PREDICTING GLOMERULAR FILTRATION RATE. ESTIMATED GFR IS NOT APPLICABLE FOR DIALYSIS PATIENTS. LIPID [id number] 06:41:00 Test Item Value Reference Range Comments TRIGLYCERIDES (BEAKER) (test 117 mg/dL Specimen slightly hemolyzed tbgz=452) CHOLESTEROL (BEAKER) (test 122 mg/dL Specimen slightly hemolyzed dicg=591) HDL CHOLESTEROL (BEAKER) (test 36 mg/dL dhqv=942) LDL CHOLESTEROL CALCULATED 63 mg/dL (BEAKER) (test kegw=106) Triglyceride Reference Range: Low Risk <150 Borderline 150- 199 High Risk 200-499 Very High Risk >=500Cholesterol Reference Range: Low Risk <200 Borderline 200-239 High Risk > 240HDL Cholesterol Reference Range: Low Risk >=60 High Risk <40LDL Cholesterol Reference Range: Optimal <100 Near Optimal 100-129 Borderline 130-159 High 160-189 Very High >=[id number] 06:07:00 Test Item Value Reference Range Comments PARTIAL THROMBOPLASTIN TIME (BEAKER) (test 45.1 seconds 22.5-36.0 fmpv=810) CBC (HEMOGRAM ONLY)2019-04-25 06:02:00 Test Item Value Reference Range Comments WHITE BLOOD CELL COUNT (BEAKER) (test azos=620) 16.7 K/ L 3.5-10.5 RED BLOOD CELL COUNT (BEAKER) (test nihj=706) 4.38 M/ L 3.93-5.22 HEMOGLOBIN (BEAKER) (test adyv=485) 12.7 GM/DL 11.2-15.7 HEMATOCRIT (BEAKER) (test agob=380) 38.7 % 34.1-44.9 MEAN CORPUSCULAR VOLUME (BEAKER) (test vpmj=921) 88.4 fL 79.4-94.8 MEAN CORPUSCULAR HEMOGLOBIN (BEAKER) (test 29.0 pg 25.6-32.2 nmjo=038) MEAN CORPUSCULAR HEMOGLOBIN CONC (BEAKER) (test 32.8 GM/DL 32.2-35.5 xutc=099) RED CELL DISTRIBUTION WIDTH (BEAKER) (test 13.2 % 11.7-14.4 ojmx=191) PLATELET COUNT (BEAKER) (test frpy=578) 325 K/CU MM 150-450 MEAN PLATELET VOLUME (BEAKER) (test beky=044) 10.1 fL 9.4-12.3 NUCLEATED RED BLOOD CELLS (BEAKER) (test 0 /100 WBC 0-0 mrvz=804) RAD, CHEST, 1 VIEW, NON [id number] 01:00:00Reason for exam:->transvenous PM placementShould this be [...] normal limits. Additional findings: None available. Signed: Candido Cameron Verified Date/Time: 04/25/2019 01:00:56 TROPONIN [id number] 23:56:00 Test Item Value Reference Range Comments TROPONIN I (BEAKER) (test bnwy=803) 0.39 ng/mL 0.00-0.03 Troponin I (TnI) levels [...] failure, acidosis, acute neurological disease, and persistent tachyarrhythmia.[id number] 23:47:00 Test Item Value Reference Range Comments MAGNESIUM (BEAKER) (test 1.6 mg/dL 1.6-2.6 Specimen slightly hemolyzed fleh=475) [id number] 23:47:00 Test Item Value Reference Range Comments PHOSPHORUS (BEAKER) (test 3.2 mg/dL 2.3-4.7 Specimen slightly hemolyzed ksxk=355) COMPREHENSIVE METABOLIC [id number] 23:47:00 Test Item Value Reference Range Comments TOTAL PROTEIN (BEAKER) 6.5 gm/dL 6.0-8.3 Specimen slightly (test zlcw=947) hemolyzed ALBUMIN (BEAKER) (test 3.4 g/dL 3.5-5.0 Specimen slightly mlhv=3062) hemolyzed ALKALINE PHOSPHATASE 146 U/L 40-150 (BEAKER) (test hqwi=208) BILIRUBIN TOTAL (BEAKER) 0.5 mg/dL 0.2-1.2 Specimen slightly (test ycol=235) hemolyzed SODIUM (BEAKER) (test 134 meq/L 136-145 jqbm=255) POTASSIUM (BEAKER) (test 4.0 meq/L 3.5-5.1 Specimen slightly nykb=119) hemolyzed CHLORIDE (BEAKER) (test 106 meq/L 98-107 cjzr=237) CO2 (BEAKER) (test 18 meq/L 22-29 pbbu=312) BLOOD UREA NITROGEN 13 mg/dL 7-21 (BEAKER) (test ikqb=855) CREATININE (BEAKER) (test 0.69 mg/dL 0.57-1.25 Specimen slightly vdqh=802) hemolyzed GLUCOSE RANDOM (BEAKER) 249 mg/dL 70-105 (test drfy=754) CALCIUM (BEAKER) (test 8.5 mg/dL 8.4-10.2 mian=905) AST (SGOT) (BEAKER) (test 27 U/L 5-34 Specimen slightly rzkn=933) hemolyzed ALT (SGPT) (BEAKER) (test 30 U/L 6-55 Specimen slightly phgn=383) hemolyzed EGFR (BEAKER) (test 88 mL/min/1.73 sq m ESTIMATED GFR IS NOT fqgu=9330) ACCURATE CREATININE CLEARANCE IN PREDICTING GLOMERULAR FILTRATION RATE. ESTIMATED GFR IS NOT APPLICABLE FOR DIALYSIS PATIENTS. [id number] 23:41:00 Test Item Value Reference Range Comments PROTIME (BEAKER) (test rqfw=577) 13.8 seconds 11.9-14.2 INR (BEAKER) (test qhxy=382) 1.1 <=5.9 PARTIAL THROMBOPLASTIN TIME (BEAKER) (test 31.1 seconds 22.5-36.0 ymak=725) Effective 10/10/2018: PT Reference Range ChangeNew: 11.9-14.2 Previous: 11.7- 14.7RECOMMENDED COUMADIN/WARFARIN INR THERAPY RANGESSTANDARD DOSE: 2.0-3.0 Includes: PROPHYLAXIS for venous thrombosis, systemic embolization; TREATMENT for venous thrombosis and/or pulmonary embolus.HIGH RISK: Target INR is2.5-3.5 for patients wiht mechanical heart valves.Prior to initiating heparinPrior to initiating [id number] 23:41:00 Test Item Value Reference Range Comments PARTIAL THROMBOPLASTIN TIME (BEAKER) (test 31.1 seconds 22.5-36.0 owbl=495) LACTIC ACID, [id number] 23:41:00 Test Item Value Reference Range Comments LACTATE BLOOD VENOUS (2) 1.1 mmol/L 0.5-2.2 Specimen slightly hemolyzed (BEAKER) (test haqg=9087) PLATELET [id number] 23:31:00 Test Item Value Reference Range Comments PLATELET COUNT (BEAKER) (test ndgf=595) 348 K/CU MM 150-450 POCT-GLUCOSE [id number] 23:27:00 Test Item Value Reference Range Comments POC-GLUCOSE METER (BEAKER) 244 mg/dL 70-110 : TESTED AT [facility] [address] [place] [address] (test lieb=7637) [facility], [address]: Lith[employer]inter/[employer] Internship [id number] for MARQUITA REBOLLEDO [id number] 18:39:00 Test Item Value Reference Range Comments ACTIVATED CLOTTING TIME 301 sec Reference Range: 74-137 (BEAKER) (test hpba=945) seconds, Baseline/TESTED AT [address] [address] [id number] 18:04:00 Test Item Value Reference Range Comments ACTIVATED CLOTTING TIME 252 sec Reference Range: 74-137 (BEAKER) (test tkjv=217) seconds, Baseline/TESTED AT [address] [address] [id number] 17:49:00 Test Item Value Reference Range Comments ACTIVATED CLOTTING TIME 235 sec Reference Range: 74-137 (BEAKER) (test mhdw=512) seconds, Baseline/TESTED AT [address] [address] POCT-GLUCOSE [id number] 13:18:00 Test Item Value Reference Range Comments POC-GLUCOSE METER (BEAKER) 187 mg/dL 70-110 : TESTED AT [address] (test jjzf=6516) [facility], [address]: Lithograph Printer/Legal Internship [id number] for ANANDA CORTEZ [id number] 12:52:00 Test Item Value Reference Range Comments PARTIAL THROMBOPLASTIN TIME (BEAKER) (test 42.7 seconds 22.5-36.0 vfeg=580) POCT-GLUCOSE [id number] 09:59:00 Test Item Value Reference Range Comments POC-GLUCOSE METER (BEAKER) 252 mg/dL 70-110 : TESTED AT [address] (test mbgs=1869) [facility], [address]: Lithograph Printer/Legal Internship [id number] for ANANDA CORTEZ HEMOGLOBIN [id number] 08:35:00 Test Item Value Reference Range Comments HEMOGLOBIN A1C (BEAKER) (test znjj=024) 11.5 % 4.3-6.1 [id number] 06:09:00 Test Item Value Reference Range Comments PARTIAL THROMBOPLASTIN TIME (BEAKER) (test 39.5 seconds 22.5-36.0 scmf=642) BASIC METABOLIC [id number] 23:24:00 Test Item Value Reference Range Comments SODIUM (BEAKER) (test 136 meq/L 136-145 giqq=702) POTASSIUM (BEAKER) (test 3.5 meq/L 3.5-5.1 iurn=870) CHLORIDE (BEAKER) (test 105 meq/L 98-107 tiee=615) CO2 (BEAKER) (test 23 meq/L 22-29 hcxt=843) BLOOD UREA NITROGEN 13 mg/dL 7-21 (BEAKER) (test ddru=291) CREATININE (BEAKER) (test 0.73 mg/dL 0.57-1.25 solj=352) GLUCOSE RANDOM (BEAKER) 195 mg/dL 70-105 (test lycq=868) CALCIUM (BEAKER) (test 8.6 mg/dL 8.4-10.2 btjh=629) EGFR (BEAKER) (test 82 mL/min/1.73 sq m ESTIMATED GFR IS NOT eoxa=2782) ACCURATE CREATININE CLEARANCE IN PREDICTING GLOMERULAR FILTRATION RATE. ESTIMATED GFR IS NOT APPLICABLE FOR DIALYSIS PATIENTS. [id number] 23:15:00 Test Item Value Reference Range Comments PARTIAL THROMBOPLASTIN TIME (BEAKER) (test 28.7 seconds 22.5-36.0 pijr=142) Prior to initiating heparinPROTHROMBIN TIME/[id number] 23:14:00 Test Item Value Reference Range Comments PROTIME (BEAKER) (test cjsf=617) 13.3 seconds 11.9-14.2 INR (BEAKER) (test ueqv=147) 1.1 <=5.9 Effective 10/10/2018: PT Reference Range ChangeNew: 11.9-14.2 Previous: 11.7- 14.7RECOMMENDED COUMADIN/WARFARIN INR THERAPY RANGESSTANDARD DOSE: 2.0-3.0 Includes: PROPHYLAXIS for venous thrombosis, systemic embolization; TREATMENT for venous thrombosis and/or pulmonary embolus.HIGH RISK: Target INR is2.5-3.5 for patients wiht mechanical heart valves.Prior to initiating [id number] 23:14:00 Test Item Value Reference Range Comments PARTIAL THROMBOPLASTIN TIME (BEAKER) (test 28.6 seconds 22.5-36.0 vsut=611) 6 hours after starting heparin infusion and as indicated per sliding scaleCBC W/ PLT COUNT & AUTO [id number] 23:10:00 Test Item Value Reference Range Comments WHITE BLOOD CELL COUNT (BEAKER) (test xuzu=662) 13.5 K/ L 3.5-10.5 RED BLOOD CELL COUNT (BEAKER) (test monw=337) 4.86 M/ L 3.93-5.22 HEMOGLOBIN (BEAKER) (test haul=054) 14.2 GM/DL 11.2-15.7 HEMATOCRIT (BEAKER) (test nybu=884) 42.5 % 34.1-44.9 MEAN CORPUSCULAR VOLUME (BEAKER) (test bdex=828) 87.4 fL 79.4-94.8 MEAN CORPUSCULAR HEMOGLOBIN (BEAKER) (test 29.2 pg 25.6-32.2 nllz=943) MEAN CORPUSCULAR HEMOGLOBIN CONC (BEAKER) (test 33.4 GM/DL 32.2-35.5 iybc=909) RED CELL DISTRIBUTION WIDTH (BEAKER) (test 13.2 % 11.7-14.4 falt=091) PLATELET COUNT (BEAKER) (test bepe=250) 367 K/CU MM 150-450 MEAN PLATELET VOLUME (BEAKER) (test ackw=729) 10.0 fL 9.4-12.3 NUCLEATED RED BLOOD CELLS (BEAKER) (test 0 /100 WBC 0-0 slxo=629) NEUTROPHILS RELATIVE PERCENT (BEAKER) (test 55 % yzxt=726) LYMPHOCYTES RELATIVE PERCENT (BEAKER) (test 37 % ywdd=128) MONOCYTES RELATIVE PERCENT (BEAKER) (test 6 % agla=001) EOSINOPHILS RELATIVE PERCENT (BEAKER) (test 2 % nyka=798) BASOPHILS RELATIVE PERCENT (BEAKER) (test 0 % mypj=635) NEUTROPHILS ABSOLUTE COUNT (BEAKER) (test 7.44 K/ L 1.56-6.13 vgdu=931) LYMPHOCYTES ABSOLUTE COUNT (BEAKER) (test 4.94 K/ L 1.18-3.74 hthz=738) MONOCYTES ABSOLUTE COUNT (BEAKER) (test 0.77 K/ L 0.24-0.36 axot=838) EOSINOPHILS ABSOLUTE COUNT (BEAKER) (test 0.22 K/ L 0.04-0.36 gdqe=166) BASOPHILS ABSOLUTE COUNT (BEAKER) (test 0.05 K/ L 0.01-0.08 oijf=217) IMMATURE GRANULOCYTES-RELATIVE PERCENT (BEAKER) 0 % 0-1 (test hpzy=5454) POCT-GLUCOSE [id number] 22:59:00 Test Item Value Reference Range Comments POC-GLUCOSE METER (BEAKER) 194 mg/dL 70-110 : TESTED AT [facility] [address] [place] [address] (test sury=2262) [facility], [id number]: [employer] [id number] for Mary Kate Carey
--- NOTE | 2019-05-11 13:40 | RAD REPORT ---
EXAM DESCRIPTION: RAD - Chest Pa And Lat (2 Views) - 05/11/2019 1:33 pm CLINICAL HISTORY: CHEST PAINleft-sided chest pain radiating to the arm, recent pacemaker placement COMPARISON: April 30 TECHNIQUE: PA and lateral views of the chest were obtained. FINDINGS: The lungs are clear of any acute process. Linear atelectasis changes are present in the la teral lower left lung field. Left subclavian pacemaker in place. Skin bill are still in place fro m incision site. Heart size is normal and central vasculature is within normal limits. No pleural ef fusion or pneumothorax seen. No acute bony finding noted. No aortic abnormality. IMPRESSION: No acute cardiopulmonary process.
[2019-05-11] MEDS ORDERED: Mastisol Adhesive Liq ONE (14:04)
--- NOTE | 2019-05-11 14:18 | ER ---
Nurse's Notes [facility] Name: Blanca Estrada Age: 59 yrs Sex: Female : 1960 Arrival Date: 05/11/2019 Time: 12:39 Bed 16 Private MD: Diagnosis: Encounter for removal of sutures;Other chest pain Presentation: 05/11 12:58 Presenting complaint: Patient states: LEFT sided chest pain/arm pain related to being sr5 in the chest yesterday with a door in spot where pacemaker was placed 2 weeks at [facility]. Ginny in place to site. AA\T\Ox4, equal unlabored resp, skin warm/dry/nc. Steady gait. 12:58 Method Of Arrival: Ambulatory sr5 12:58 Acuity: WILMAR 3 sr5 13:10 Transition of care: patient was not received from another setting of care. Onset of rb1 symptoms was May 10, 2019. Risk Assessment: Do you want to hurt yourself or someone else? Patient reports no desire to harm self or others. Initial Sepsis Screen: Does the patient meet any 2 criteria? No. Patient's initial sepsis screen is negative. Does the patient have a suspected source of infection? No. Patient's initial sepsis screen is negative. Care prior to arrival: None. Triage Assessment: 13:02 General: Appears in no apparent distress. Behavior is calm, cooperative. Pain: sr5 Complains of pain in anterior aspect of left upper chest. Neuro: Level of Consciousness is awake, alert, obeys commands, Oriented to person, place, time, situation. Cardiovascular: Patient's skin is warm and dry. Respiratory: Respiratory effort is even, unlabored, Respiratory pattern is regular, symmetrical. Historical: - Allergies: 13:10 No Known Allergies; rb1 - Home Meds: 13:10 aspirin 81 mg Oral chew 1 tab once daily [Active]; atorvastatin 80 mg Oral tab 1 tab rb1 once daily [Active]; clopidogrel 75 mg Oral tab 1 tab once daily [Active]; glargine insuline 100 units/ml SQ [Active]; hydrocodone-acetaminophen 10-325 mg Oral tab 1 tab every 4 hours [Active]; lisinopril 2.5 mg Oral tab 1 tab once daily [Active]; lispro insulin 100 unit/ml [Active]; metoprolol tartrate 25 mg Oral tab 1 tab once daily [Active]; pantoprazole 40 mg Oral TbEC 1 tab once daily [Active]; - PMHx: 13:02 Clots in the past; Diabetes - IDDM; Hypertension; Hyperlipidemia; sr5 - PSHx: 13:02 Back x 2; pacemaker; sr5 - Immunization history:: Adult Immunizations up to date. - Ebola Screening: : Patient negative for fever greater than or equal to 101.5 degrees Fahrenheit, and additional compatible Ebola Virus Disease symptoms. Screenin:10 Abuse screen: Denies threats or abuse. Nutritional screening: No deficits noted. rb1 Tuberculosis screening: No symptoms or risk factors identified. Fall Risk None identified. Assessment: 13:10 General: Appears in no apparent distress. comfortable, Behavior is calm, cooperative. rb1 Pain: Complains of pain in anterior aspect of left upper chest Pain currently is 3 out of 10 on a pain scale. Neuro: Level of Consciousness is awake, alert, obeys commands, Oriented to person, place, time, situation. Cardiovascular: Reports since Pacemaker was placed [address] [facility] in [place]. There are five ginny intact. Capillary refill < 3 seconds is brisk in bilateral fingers. Respiratory: Airway is patent Respiratory effort is even, unlabored, Respiratory pattern is regular, symmetrical. GI: No signs and/or symptoms were reported involving the gastrointestinal system. : No signs and/or symptoms were reported regarding the genitourinary system. Derm: Bruising that is dark purple, on anterior aspect of left shoulder and anterior aspect of left upper chest. Musculoskeletal: Range of motion: intact in all extremities. 13:35 Reassessment: Pt. went to X-ray. rb1 14:06 Reassessment: Patient appears in no apparent distress at this time. No changes from rb1 previously documented assessment. 14:11 Reassessment: Provider removed five ginny. Pt. tolerated well. rb1 Vital Signs: 13:02 BP 141 / 68; Pulse 75; Resp 16; Temp 98.0; Pulse Ox 96% on R/A; Weight 73.03 kg (R); sr5 Height 5 ft. 8 in. (172.72 cm); Pain 4/10; 13:02 Body Mass Index 24.48 (73.03 kg, 172.72 cm) sr5 ED Course: 12:39 Patient arrived in ED. as 13:01 Triage completed. sr5 13:02 Arm band placed on. sr5 13:06 Goyo Park FNP-C is [facility]. la1 13:06 Duy Capps MD is Attending Physician. la1 13:10 Patient has correct armband on for positive identification. Bed in low position. Call rb1 light in reach. Side rails up X 1. Pulse ox on. NIBP on. 13:18 Mayra Vergara, RN is Primary Nurse. rb1 13:34 Chest Pa And Lat (2 Views) XRAY In Process Unspecified. EDMS 14:24 No provider procedures requiring assistance completed. Patient did not have IV access rb1 during this emergency room visit. Administered Medications: No medications were administered Outcome: 14:17 Discharge ordered by MD. la1 14:24 Patient left the ED. rb1 14:24 Discharged to home ambulatory, with family. rb1 14:24 Condition: stable 14:24 Discharge instructions given to patient, Instructed on discharge instructions, follow up and referral plans. Demonstrated understanding of instructions, follow-up care, Prescriptions given X none Signatures: Dispatcher [employer] EDRI Beth Booker as Goyo Park FNP-C KETTLE LOADER-Cla1 Mayra Vergara, RN RN rb1 Abraham Hernandez RN RN sr5 Corrections: (The following items were deleted from the chart) 14:36 14:34 Patient left the ED. rb1 rb1
--- NOTE | 2019-05-11 14:19 | EDPHYS ---
Physician Documentation [facility] Name: Blanca Estrada Age: 59 yrs Sex: Female : 1960 Arrival Date: 05/11/2019 Time: 12:39 Bed 16 Private MD: ED Physician Duy Capps HPI: 05/11 13:52 This 59 yrs old Female presents to ER via Ambulatory with complaints of Arm la1 Pain, Pacemaker Problem. 13:52 The patient or guardian complains of pain, that is acute. The complaints affect the la1 anterior aspect of left shoulder. Context: The problem was sustained outdoors. Onset: The symptoms/episode began/occurred yesterday. Treatment prior to arrival includes: no previous treatment. Modifying factors: The symptoms are alleviated by nothing. the symptoms are aggravated by nothing. Associated signs and symptoms: Pertinent negatives: deformity, erythema, fever, nausea, numbness, swelling, warmth, weakness. Severity of symptoms: At their worst the symptoms were mild. Pt has a pacemaker placed 2 weeks ago, recently hit her anterior chest wall with her car door and has pain overlying her pacemaker site. bruising present to left arm, reported to be present at D/C from her pacemaker placement admission. Historical: - Allergies: 13:10 No Known Allergies; rb1 - Home Meds: 13:10 aspirin 81 mg Oral chew 1 tab once daily [Active]; atorvastatin 80 mg Oral tab 1 tab rb1 once daily [Active]; clopidogrel 75 mg Oral tab 1 tab once daily [Active]; glargine insuline 100 units/ml SQ [Active]; hydrocodone-acetaminophen 10-325 mg Oral tab 1 tab every 4 hours [Active]; lisinopril 2.5 mg Oral tab 1 tab once daily [Active]; lispro insulin 100 unit/ml [Active]; metoprolol tartrate 25 mg Oral tab 1 tab once daily [Active]; pantoprazole 40 mg Oral TbEC 1 tab once daily [Active]; - PMHx: 13:02 Clots in the past; Diabetes - IDDM; Hypertension; Hyperlipidemia; sr5 - PSHx: 13:02 Back x 2; pacemaker; sr5 - Immunization history:: Adult Immunizations up to date. - Ebola Screening: : Patient negative for fever greater than or equal to 101.5 degrees Fahrenheit, and additional compatible Ebola Virus Disease symptoms. ROS: 13:54 Constitutional: Negative for fever, chills, and weight loss, Eyes: Negative for injury, la1 pain, redness, and discharge, ENT: Negative for injury, pain, and discharge, Neck: Negative for injury, pain, and swelling, Cardiovascular: Negative for chest pain, palpitations, and edema, Respiratory: Negative for shortness of breath, cough, wheezing, and pleuritic chest pain, Abdomen/GI: Negative for abdominal pain, nausea, vomiting, diarrhea, and constipation, Back: Negative for injury and pain, : Negative for injury, bleeding, discharge, and swelling. 13:54 MS/extremity: Positive for chest wall pain. Exam: 13:54 Constitutional: This is a well developed, well nourished patient who is awake, alert, la1 and in no acute distress. Head/Face: Normocephalic, atraumatic. Eyes: Pupils equal round and reactive to light, extra-ocular motions intact. Periorbital areas with no swelling, redness, or edema. ENT: . Mucous membranes moist. Neck: No Meningismus. 13:54 Cardiovascular: Regular rate and rhythm with a normal S1 and S2. No gallops, murmurs, or rubs. Normal PMI, no JVD. No pulse deficits. Respiratory: Lungs have equal breath sounds bilaterally, clear to auscultation No rales, rhonchi or wheezes noted. No increased work of breathing, no retractions or nasal flaring. Back: No spinal tenderness. No costovertebral tenderness. Full range of motion. Neuro: Awake and alert, GCS 15, oriented to person, place, time, and situation.. Normal gait. 13:54 Chest/axilla: Inspection: pacemaker present to left anterior chest wall, bill still present. Wound appears healthy at this time. . Vital Signs: 13:02 BP 141 / 68; Pulse 75; Resp 16; Temp 98.0; Pulse Ox 96% on R/A; Weight 73.03 kg (R); sr5 Height 5 ft. 8 in. (172.72 cm); Pain 4/10; 13:02 Body Mass Index 24.48 (73.03 kg, 172.72 cm) sr5 Procedures: 14:13 Suture/Staple removal: Removed 5 bill, from anterior aspect of left upper chest, la1 site appears well healed, Patient tolerated well, mastisol and steri strips applied. MDM: 13:06 Patient medically screened. la1 14:14 Data reviewed: vital signs, nurses notes, EKG, radiologic studies, I have discussed the la1 patient's presentation/case with the attending Emergency Department Physician; and as a result, I will discharge patient. Data interpreted: Pulse oximetry: on room air is 96 %. Interpretation: acceptable. Counseling: I had a detailed discussion with the patient and/or guardian regarding: the historical points, exam findings, and any diagnostic results supporting the discharge/admit diagnosis, radiology results, the need for outpatient follow up, a safety instructor, to return to the emergency department if symptoms worsen or persist or if there are any questions or concerns that arise at home, smoking cessation. Special discussion: Based on the patient's history, exam, and Dx evaluation, there is no indication for emergent intervention or inpatient Tx. It is understood by the patient/guardian that if the Sx's persist or worsen they need to return immediately for re-evaluation. Based on the history and exam findings, there is no indication for further emergent testing or inpatient evaluation. I discussed with the patient/guardian the need to see the safety instructor for further evaluation of the symptoms. ED course: Pt presents 2 weeks S/P pacemaker insertion, was upset with her doctors bedside manner at [facility] in [place] and was not able to setup a FU apt, pt is uninsured and is not able to get apt to have her bill removed. Pt advised that she really should see her surgeon to have her bill removed but states that she will not be seeing her surgeon and does not have anywhere else that she can go to have the bill removed. 05/11 13:23 Order name: Chest Pa And Lat (2 Views) XRAY; Complete Time: 13:42 la1 05/11 13:23 Order name: EKG - Nurse/Tech; Complete Time: 13:35 la1 Administered Medications: No medications were administered Disposition: 19:55 Co-signature as Attending Physician, Duy Capps MD I agree with the assessment and coral plan of care. Disposition: 05/11/19 14:17 Discharged to Home. Impression: Encounter for removal of sutures, Other chest pain. - Condition is Stable. - Discharge Instructions: Stitches, [place], or Adhesive Wound Closure, Incision Care, Adult. - Medication Reconciliation Form, Thank You Letter form. - Follow up: Private Physician; When: 2 - 3 days; Reason: Recheck today's complaints, Re-evaluation by your physician. Follow up: Emergency Department; When: As needed. - Problem is new. - Symptoms have improved. Signatures: Dispatcher [employer] EDCA Duy Capps MD MD cha Attema, Lee, SPINNING LATHE OPERATOR-C SPINNING LATHE OPERATOR-Cla1 Mayra Vergara, RN RN rb1 Resecker, Abraham RN RN sr5 Corrections: (The following items were deleted from the chart) 14:34 14:17 05/11/2019 14:17 Discharged to Home. Impression: Encounter for removal of rb1 sutures; Other chest pain. Condition is Stable. Forms are Medication Reconciliation Form, Thank You Letter, Antibiotic Education, Prescription Opioid Use. Follow up: Private Physician; When: 2 - 3 days; Reason: Recheck today's complaints, Re-evaluation by your physician. Follow up: Emergency Department; When: As needed. Problem is new. Symptoms have improved. la1
[2019-05-11 14:43] VITALS: BP 141/68; TEMP 98; O2SAT 96
--- NOTE | 2019-05-13 10:21 | EKG ---
Test Date: 2019-05-11 Test Time: 13:18:15 Latin Professor: GERMAN MEASUREMENT RESULTS: Intervals: Rate: 69 WA: 140 QRSD: 88 QT: 406 QTc: 435 [place]: P: 48 WA: 140 QRS: 34 T: 64 INTERPRETIVE STATEMENTS: Normal sinus rhythm Normal ECG Compared to ECG 04/30/2019 14:23:44 Fusion complex(es) no longer present T-wave abnormality no longer present Possible ischemia no longer present Electronically Signed On 05-13-19 10:20:14 PRESS CATCHER by Darinel Farris
== END 2019-05-11 14:34 | disposition home or self-care (01) ==
LOC: ER 12:36
DX: R07.89 Other chest pain (principal); Z48.02 Encounter for removal of sutures; I10 Essential (primary) hypertension; E78.5 Hyperlipidemia, unspecified; Z95.0 Presence of cardiac pacemaker; E11.9 Type 2 diabetes mellitus without complications; Z79.82 Long term (current) use of aspirin; Z79.4 Long term (current) use of insulin
CPT/HCPCS: 71046; 93005; 99283

== ENCOUNTER 2020-02-27 19:22 | Emergency (ER) | payer SELFPAY ==
--- OUTSIDE RECORDS SUMMARY | 2020-02-27 19:26 | XMS REPORT | Clinical Summary ---
:1960 Author Organization [facility] Address [address] [place] [address] Care Team Providers Name Role Phone Pcp Primary Care Provider Unavailable Ezekiel Venegas Unavailable Allergies No Known Allergies Medications Medication Sig Dispensed Refills Start End Date Status Date miconazole Apply topically 2 28.35 g 0 04/25/20 A ctive (MICOTIN) 2 % (two) times daily. 9 20 cream insulin glargine Inject 10 Units 10 mL 0 Active (LANTUS) 100 subcutaneously 9 unit/mL (3 mL) nightly. InPn insulin lispro Before meals: 100 mL 0 A ctive (HUMALOG) 100 inject 1 unit SQ 9 unit/mL InPn if sugar >200; 2 units SQ if BG >250; 4 units SQ if BG >300; 6 units if > 350; 8 units if sugar > 400. glucometer Use pre meals and 1 each 0 A ctive (FREESTYLE) Misc pre bedtime with 9 strips and lancets. blood sugar 120 strips by 120 strip 0 Acti ve diagnostic Miscellaneous 9 (GLUCOSE BLOOD) route 4 (four) Strp times daily. lancets Use for glucose 120 each 0 Acti ve (LANCETS, SUPER check 4 times 9 THIN) Misc daily. aspirin 81 MG Take 1 tablet (81 90 tablet 0 07/26/19 chewable tablet mg total) by mouth 9 20 daily for 90 days. atorvastatin Take 1 tablet (80 30 tablet 0 04/28/20 Discontinued (LIPITOR) 80 MG mg total) by mouth 9 19 tablet nightly for 30 days. clopidogrel Take 1 tablet (75 30 tablet 0 05/27/19 (PLAVIX) 75 mg mg total) by mouth 9 20 tablet daily for 30 days. HYDROcodone-acet Take 1 tablet by 20 tablet 0 aminophen (NORCO mouth every 4 9 10-325) 10-325 (four) hours as mg per tablet needed for Pain for up to 10 days. Max Daily Amount: 6 tablets lisinopril Take 1 tablet (10 30 tablet 0 04/28/20 D iscontinued (PRINIVIL,ZESTRI mg total) by mouth 9 19 (Stop Taking at L) 10 MG tablet daily for 30 days. Discharge) metoprolol Take 1 tablet (25 30 tablet 0 05/27/19 E xpired (TOPROL-XL) 25 mg total) by mouth 9 20 MG 24 hr tablet daily for 30 days. mINOCYCLine Take 1 capsule 10 capsule 0 05/02/20 Ex pired (MINOCIN,DYNACIN (100 mg total) by 9 19 ) 100 MG capsule mouth every 12 (twelve) hours for 5 days. pantoprazole Take 1 tablet (40 30 tablet 0 05/27/19 (PROTONIX) 40 MG mg total) by mouth 9 20 tablet every morning before breakfast for 30 days. lisinopril Take 1 tablet (2.5 30 tablet 0 05/29/19 (PRINIVIL,ZESTRI mg total) by mouth 9 20 L) 2.5 MG tablet daily for 30 days. atorvastatin Take 1 tablet (80 30 tablet 0 05/28/19 (LIPITOR) 80 MG mg total) by mouth 9 20 tablet nightly for 30 days. Active Problems Problem Noted Date Hypertension 04/24/2019 Hyperlipidemia 04/24/2019 VT (ventricular tachycardia) 04/24/2019 Heart block 04/24/2019 Leukocytosis 04/24/2019 Uncontrolled diabetes mellitus with hyperglycemia 04/14 CAD (coronary artery disease) 04/23/2019 Encounters Date Type Specialty Care Team Description 05/01/2019 Documentation Janna Almaraz RN 04/26/2019 Surgery Samuel Hernandez, PACEMAKER GEN ERATOR MD - INSERTION W/ EXISTING LEAD (SINGLE) 04/24/2019 Surgery Dain Hutchinson HEART CATH ONLY - MD Ruth NO ANGIOS 04/24/2019 Orders Only General Internal Medicine 04/23/2019 - Hospital Encounter Cardiology Daryl Pablo Coronary artery disease involving [place] coronary artery of [place] heart with unstable angina pectoris (HCC) (Primary Dx); 04/28/2019 MD Terri New onset type 2 diabetes mellitus (HCC) Peri Wright MD Joudah, Fady Ahmad, MD 04/23/2019 Travel after 02/26/2019 Family History Medical History Relation Name Comments Coronary artery disease Mother Relation Name Status Comments Mother Social History Tobacco Use Types Packs/Day Years Used Date Current Every Day Smoker 2 Smokeless Tobacco: Current User Alcohol Use Drinks/Week oz/Week Comments No Alcohol Habits Answer Date Recorded How often do you have a drink containing alcohol? Never 04/23/2019 How many drinks containing alcohol do you have on a typical Not asked day when you are drinking? How often do you have six or more drinks on one occasion? No t asked Sex Assigned at Date Recorded Not on file Last Filed Vital Signs Vital Sign Reading Time Taken Comments Blood Pressure 123/61 04/28/2019 12:25 PM FLAT SORTING MACHINE CLERK Pulse 78 04/28/2019 12:25 PM FLAT SORTING MACHINE CLERK Temperature 35.9 C (96.7 F) 04/28/2019 12:25 PM FLAT SORTING MACHINE CLERK Respiratory Rate 19 04/28/2019 12:25 PM FLAT SORTING MACHINE CLERK Oxygen Saturation 95% 04/28/2019 12:25 PM FLAT SORTING MACHINE CLERK Inhaled Oxygen Concentration - - Weight 73.6 kg (162 lb 4.1 oz) 04/27/2019 8:39 AM FLAT SORTING MACHINE CLERK Height 172.7 cm (5' 8") 04/24/2019 12:00 AM FLAT SORTING MACHINE CLERK Body Mass Index 24.67 04/24/2019 12:00 AM FLAT SORTING MACHINE CLERK Plan of Treatment Not on file Implants Implanted Type Area Director Of Sports Performance Device Shelf Model / Identifier Expiration Serial / Date Lot Stent Synergy Otw 3.50x8mm [id number] - [id number] IMPLANTS N/A : [employer] [id number] / Implanted: Qty: 1 on 04/24/2019 by Dain Sanders MD at [facility] Coronary SCI:INTERV [id number] / CARDIOLOGY Description:Left Main Lead Pacemkr Capsur Novus 52cm 5076-52 - [id number] PACEMAKER/I CD N/A: MEDTRONIC:CARD [id number] 03/05/2021 5076-52 / Implanted: Qty: 1 on 04/26/2019 by Samuel Mireles i, MD at [facility] CHAMBER DEVICE Heart RHY:DISEASE MGT P [id number] / Description:RV lead Lead Pacemkr Capsur Novus 45cm 5076-45 - [id number] PACEMAKER/I CD N/A: MEDTRONIC:CARD [id number] 03/12/2021 5076-45 / Implanted: Qty: 1 on 04/26/2019 by Samuel Mireles i, MD at [facility] CHAMBER DEVICE Heart RHY:DISEASE MGT P [id number] / Description:RA lead Pacemkr Cindy Xtdr Mri Ipg [id number] - [id number] PACEMAKER/ICD Left: MEDTRONIC:CARD [id number] 09/09/2020 [id number] / Implanted: Qty: 1 on 04/26/2019 by Samuel Mireles i, MD at [facility] CHAMBER DEVICE Chest RHY:PACING SYS RN [id number] / Description:Pacemaker generator Procedures Procedure Name Priority Date/Time Associated Diagnosis Comme nts ARRYTHMIA IMPLANT 05/03/2019 12:40 PM REPORT - SCAN FLAT SORTING MACHINE CLERK RHYTHM STRIP - SCAN 05/01/2019 11:22 AM FLAT SORTING MACHINE CLERK CARDIAC CATH REPORT 04/30/2019 2:11 PM - SCAN FLAT SORTING MACHINE CLERK CARDIAC CATH REPORT 04/30/2019 2:11 PM - SCAN FLAT SORTING MACHINE CLERK ARRYTHMIA IMPLANT 04/30/2019 2:11 PM REPORT - SCAN FLAT SORTING MACHINE CLERK RHYTHM STRIP - SCAN 04/30/2019 2:11 PM FLAT SORTING MACHINE CLERK RHYTHM STRIP - SCAN 04/30/2019 9:00 AM FLAT SORTING MACHINE CLERK RHYTHM STRIP - SCAN 04/30/2019 9:00 AM FLAT SORTING MACHINE CLERK POCT-GLUCOSE METER Routine 04/28/2019 12:23 PM Re sults for this FLAT SORTING MACHINE CLERK procedure are i n the results section. POCT-GLUCOSE METER Routine 04/28/2019 8:15 AM Re sults for this FLAT SORTING MACHINE CLERK procedure are i n the results section. ECG 12-LEAD Routine 04/28/2019 7:01 AM FLAT SORTING MACHINE CLERK Procedure Note - Interface, External Ris In - 04/28/2019 7:01 AM FLAT SORTING MACHINE CLERK Ventricular Rate 75 BPM Atrial Rate 75 BPM P-R Interval 150 ms QRS Duration 142 ms Q-T Interval 416 ms QTC Calculation(Bazett) 464 ms P [place] 54 degrees R [place] -44 degrees T [place] 108 degrees Normal sinus rhythm Left axis deviation Left bundle branch block Abnormal ECG When compared with ECG of 07:00, QRS axis Shifted left ECG 12-LEAD Routine 04/28/2019 7:01 AM FLAT SORTING MACHINE CLERK Resu lts for this procedure are i n the results section . BUN AND CREATININE W/RATIO Routine 04/28/2019 4:46 AM FLAT SORTING MACHINE CLERK Results for this procedure are i n the results section . MAGNESIUM Routine 04/28/2019 4:46 AM FLAT SORTING MACHINE CLERK Resu lts for this procedure are i n the results section . BASIC METABOLIC PANEL (7) Routine 04/28/2019 4:46 AM FLAT SORTING MACHINE CLERK Results for this procedure are i n the results section . CBC (HEMOGRAM ONLY) Routine 04/28/2019 4:46 AM FLAT SORTING MACHINE CLERK Results for this procedure are i n the results section . POCT-GLUCOSE METER Routine 04/27/2019 9:50 PM FLAT SORTING MACHINE CLERK Results for this procedure are i n the results section . POCT-GLUCOSE METER Routine 04/27/2019 4:58 PM FLAT SORTING MACHINE CLERK Results for this procedure are i n the results section . POCT-GLUCOSE METER Routine 04/27/2019 11:51 AM FLAT SORTING MACHINE CLERK Results for this procedure are i n the results section . POCT-GLUCOSE METER Routine 04/27/2019 7:52 AM FLAT SORTING MACHINE CLERK Results for this procedure are i n the results section . XR CHEST 1 VIEW Routine 04/27/2019 7:13 AM FLAT SORTING MACHINE CLERK R esults for this PORTABLE/BEDSIDE procedure a re in the results section . ECG 12-LEAD Routine 04/27/2019 7:00 AM FLAT SORTING MACHINE CLERK Procedure Note - Interface, External Ris In - 04/27/2019 7:00 AM FLAT SORTING MACHINE CLERK Ventricular Rate 63 BPM Atrial Rate 63 BPM P-R Interval 164 ms QRS Duration 132 ms Q-T Interval 432 ms QTC Calculation(Bazett) 442 ms P [place] 52 degrees R [place] -3 degrees T [place] 150 degrees Normal sinus rhythm Left bundle branch block Abnormal ECG When compared with ECG of 00:20, Sinus rhythm has replaced El ectronic ventricular pacemaker ECG 12-LEAD Routine 04/27/2019 7:00 AM FLAT SORTING MACHINE CLERK Resu lts for this procedure are i n the results section . ISLET CELL AB TITER Routine 04/27/2019 5:48 AM FLAT SORTING MACHINE CLERK Results for this procedure are i n the results section . ISLET CELL AB SCREEN Routine 04/27/2019 5:48 AM FLAT SORTING MACHINE CLERK Results for this procedure are i n the results section . ISLET CELL AB SCR Routine 04/27/2019 5:48 AM FLAT SORTING MACHINE CLERK Results for this procedure are i n the results section . MERRICK-65 Routine 04/27/2019 5:48 AM FLAT SORTING MACHINE CLERK Resu lts for this procedure are i n the results section . BUN AND CREATININE W/RATIO Routine 04/27/2019 5:48 AM FLAT SORTING MACHINE CLERK Results for this procedure are i n the results section . MAGNESIUM Routine 04/27/2019 5:48 AM FLAT SORTING MACHINE CLERK Resu lts for this procedure are i n the results section . BASIC METABOLIC PANEL (7) Routine 04/27/2019 5:48 AM FLAT SORTING MACHINE CLERK Results for this procedure are i n the results section . CBC (HEMOGRAM ONLY) Routine 04/27/2019 5:48 AM FLAT SORTING MACHINE CLERK Results for this procedure are i n the results section . ECG 12-LEAD Routine 04/27/2019 12:20 AM FLAT SORTING MACHINE CLERK Procedure Note - Interface, External Ris In - 04/27/2019 5:53 AM FLAT SORTING MACHINE CLERK Ventricular Rate 60 BPM Atrial Rate 60 BPM P-R Interval 186 ms QRS Duration 164 ms Q-T Interval 498 ms QTC Calculation(Bazett) 498 ms P [place] 96 degrees R [place] -76 degrees [place] 67 degrees AV dual-paced rhythm Abnormal ECG When compared with ECG of 11:37, No significant change was fo und ECG 12-LEAD Routine 04/27/2019 12:20 AM FLAT SORTING MACHINE CLERK Resu lts for this procedure are i n the results section . ECHOCARDIOGRAM REPORT - SCAN 04/26/2019 9:21 PM FLAT SORTING MACHINE CLERK POCT-GLUCOSE METER Routine 04/26/2019 9:11 PM FLAT SORTING MACHINE CLERK Results for this procedure are i n the results section . POCT-GLUCOSE METER Routine 04/26/2019 6:02 PM FLAT SORTING MACHINE CLERK Results for this procedure are i n the results section . XR CHEST 1 VIEW Routine 04/26/2019 12:39 PM FLAT SORTING MACHINE CLERK R esults for this PORTABLE/BEDSIDE procedure a re in the results section . ECG 12-LEAD Routine 04/26/2019 11:37 AM FLAT SORTING MACHINE CLERK Procedure Note - Interface, External Ris In - 04/26/2019 10:52 PM FLAT SORTING MACHINE CLERK Ventricular Rate 60 BPM Atrial Rate 105 BPM QRS Duration 156 ms Q-T Interval 520 ms QTC Calculation(Bazett) 520 ms P [place] 12 degrees R [place] -76 degrees T [place] 68 degrees AV dual-paced rhythm Abnormal ECG When compared with ECG of 08:09, Sinus rhythm is no longer wi th complete heart block Vent. rate has decreased BY 4 BPM ECG 12-LEAD Routine 04/26/2019 11:37 AM Results for this FLAT SORTING MACHINE CLERK procedure are i n the results section. POCT-GLUCOSE METER Routine 04/26/2019 10:28 AM Re sults for this FLAT SORTING MACHINE CLERK procedure are i n the results section. PACEMAKER GENERATOR - 04/26/2019 7:26 AM CHB (complet e INSERTION W/ EXISTING FLAT SORTING MACHINE CLERK heart block) LEAD (SINGLE) (HCC) CBC (HEMOGRAM ONLY) Routine 04/26/2019 3:50 AM R esults for this FLAT SORTING MACHINE CLERK procedure are i n the results section. MAGNESIUM Routine 04/26/2019 3:49 AM Results for this FLAT SORTING MACHINE CLERK procedure are i n the results section. BASIC METABOLIC PANEL Routine 04/26/2019 3:49 AM Results for this (7) FLAT SORTING MACHINE CLERK procedure are i n the results section. POCT-GLUCOSE METER Routine 04/25/2019 9:43 PM Re sults for this FLAT SORTING MACHINE CLERK procedure are i n the results section. TRANSFUSION SERVICE 04/25/2019 6:03 PM REPORT - SCAN FLAT SORTING MACHINE CLERK TROPONIN I Routine 04/25/2019 4:14 PM Results for this FLAT SORTING MACHINE CLERK procedure are i n the results section. POCT-GLUCOSE METER Routine 04/25/2019 11:44 AM Re sults for this FLAT SORTING MACHINE CLERK procedure are i n the results section. CREATINE KINASE (CK) Add-On 04/25/2019 9:11 AM Results for this FLAT SORTING MACHINE CLERK procedure are i n the results section. TROPONIN I Routine 04/25/2019 9:11 AM Results for this FLAT SORTING MACHINE CLERK procedure are i n the results section. ECG 12-LEAD Routine 04/25/2019 8:09 AM Results for this FLAT SORTING MACHINE CLERK procedure are i n the results section. ECG 12-LEAD Routine 04/25/2019 8:09 AM FLAT SORTING MACHINE CLERK Procedure Note - Interface, External Ris In - 04/25/2019 7:15 AM FLAT SORTING MACHINE CLERK Ventricular Rate 64 BPM Atrial Rate 80 BPM QRS Duration 174 ms Q-T Interval 510 ms QTC Calculation(Bazett) 526 ms P [place] 62 degrees R [place] -44 degrees T [place] 109 degrees Sinus rhythm with complete h eart block and Ventricular-paced rhythm with occasional Premature ventricular complexes Abnormal ECG When compared with ECG of 01:46, Electronic ventricular pacem itzel has replaced Sinus rhythm POCT-GLUCOSE METER Routine 04/25/2019 8:07 AM FLAT SORTING MACHINE CLERK Results for this procedure are i n the results section . APTT Routine 04/25/2019 5:40 AM FLAT SORTING MACHINE CLERK Resu lts for this procedure are i n the results section . TROPONIN I Routine 04/25/2019 5:40 AM FLAT SORTING MACHINE CLERK Resu lts for this procedure are i n the results section . MAGNESIUM Routine 04/25/2019 5:40 AM FLAT SORTING MACHINE CLERK Resu lts for this procedure are i n the results section . BASIC METABOLIC PANEL (7) Routine 04/25/2019 5:40 AM FLAT SORTING MACHINE CLERK Results for this procedure are i n the results section . CBC (HEMOGRAM ONLY) Routine 04/25/2019 5:40 AM FLAT SORTING MACHINE CLERK Results for this procedure are i n the results section . LIPID PANEL Routine 04/25/2019 5:40 AM FLAT SORTING MACHINE CLERK Resu lts for this procedure are i n the results section . ECG 12-LEAD Routine 04/25/2019 1:46 AM FLAT SORTING MACHINE CLERK Procedure Note - Interface, External Ris In - 04/25/2019 12:50 AM FLAT SORTING MACHINE CLERK Ventricular Rate 78 BPM Atrial Rate 78 BPM P-R Interval 152 ms QRS Duration 140 ms Q-T Interval 454 ms QTC Calculation(Bazett) 517 ms P [place] 44 degrees R [place] 1 degrees T [place] 114 degrees Normal sinus rhythm Left bundle branch block Abnormal ECG When compared with ECG of 23:11, Sinus rhythm is no longer wi th ventricular escape complexes Vent. rate has increased BY 32 BPM QT has lengthened ECG 12-LEAD STAT 04/25/2019 1:46 AM FLAT SORTING MACHINE CLERK Resu lts for this procedure are i n the results section . 2D ECHO W/ DOPPLER Routine 04/25/2019 1:23 AM FLAT SORTING MACHINE CLERK Results for this (CW/PW/COLOR) procedure are in the results section . XR CHEST 1 VIEW STAT 04/25/2019 12:16 AM FLAT SORTING MACHINE CLERK R esults for this PORTABLE/BEDSIDE procedure a re in the results section . TROPONIN I STAT 04/24/2019 11:20 PM FLAT SORTING MACHINE CLERK Resu lts for this procedure are i n the results section . LACTIC ACID, VENOUS STAT 04/24/2019 11:20 PM FLAT SORTING MACHINE CLERK Results for this procedure are i n the results section . PT/APTT STAT 04/24/2019 11:20 PM FLAT SORTING MACHINE CLERK Resu lts for this procedure are i n the results section . PHOSPHORUS STAT 04/24/2019 11:20 PM FLAT SORTING MACHINE CLERK Resu lts for this procedure are i n the results section . MAGNESIUM STAT 04/24/2019 11:20 PM FLAT SORTING MACHINE CLERK Resu lts for this procedure are i n the results section . COMPREHENSIVE METABOLIC STAT 04/24/2019 11:20 PM FLAT SORTING MACHINE CLERK Results for this PANEL procedure are i n the results section . APTT Routine 04/24/2019 11:20 PM FLAT SORTING MACHINE CLERK Resu lts for this procedure are i n the results section . PLATELET COUNT Routine 04/24/2019 11:20 PM FLAT SORTING MACHINE CLERK Re sults for this procedure are i n the results section . ECG 12-LEAD Routine 04/24/2019 11:11 PM FLAT SORTING MACHINE CLERK Procedure Note - Interface, External Ris In - 04/24/2019 11:47 PM FLAT SORTING MACHINE CLERK Ventricular Rate 46 BPM Atrial Rate 46 BPM P-R Interval 146 ms QRS Duration 134 ms Q-T Interval 472 ms QTC Calculation(Bazett) 413 ms P [place] 77 degrees R [place] 25 degrees T [place] 96 degrees Sinus bradycardia with marke d sinus arrhythmia with ventricular escape complexes Left bundle branch block Abnormal ECG When compared with ECG of 23:10, Sinus rhythm has replaced At rial fibrillation ST no longer depressed in An terior leads ECG 12-LEAD Routine 04/24/2019 11:10 PM FLAT SORTING MACHINE CLERK Procedure Note - Interface, External Ris In - 04/24/2019 11:47 PM FLAT SORTING MACHINE CLERK Ventricular Rate 56 BPM Atrial Rate 22 BPM QRS Duration 142 ms Q-T Interval 468 ms QTC Calculation(Bazett) 451 ms R [place] 0 degrees T [place] 108 degrees Atrial fibrillation with slo w ventricular response with premature ventricular or aberrantly conducted complexes Left bundle branch block Abnormal ECG When compared with ECG of 23:08, Previous ECG has undetermine d rhythm, needs review ST now depressed in Anterior leads QT has shortened POCT-GLUCOSE METER Routine 04/24/2019 11:10 PM FLAT SORTING MACHINE CLERK ECG 12-LEAD Routine 04/24/2019 11:08 PM FLAT SORTING MACHINE CLERK Procedure Note - Interface, External Ris In - 04/24/2019 11:47 PM FLAT SORTING MACHINE CLERK Ventricular Rate 93 BPM Atrial Rate 96 BPM P-R Interval 152 ms QRS Duration 134 ms Q-T Interval 452 ms QTC Calculation(Bazett) 561 ms P [place] 77 degrees [place] 24 degrees T [place] 101 degrees Poor data quality, interp retation may be adversely affected Undetermined rhythm Left bundle branch block Abnormal ECG When compared with ECG of 23:07, Current undetermined rhythm precludes rhythm comparison, needs review ECG 12-LEAD Routine 04/24/2019 11:07 PM FLAT SORTING MACHINE CLERK Procedure Note - Interface, External Ris In - 04/24/2019 11:47 PM FLAT SORTING MACHINE CLERK Ventricular Rate 84 BPM Atrial Rate 84 BPM P-R Interval 132 ms QRS Duration 138 ms Q-T Interval 446 ms QTC Calculation(Bazett) 527 ms P [place] 76 degrees R [place] 36 degrees T [place] 104 degrees Normal sinus rhythm with sin us arrhythmia Left bundle branch block Abnormal ECG When compared with ECG of 23:06, Previous ECG has undetermine d rhythm, needs review Left bundle branch block is now Present Borderline criteria for Ante rior infarct are no longer Present Borderline criteria for Ante rolateral infarct are no longer Present ECG 12-LEAD Routine 04/24/2019 11:06 PM FLAT SORTING MACHINE CLERK Procedure Note - Interface, External Ris In - 04/24/2019 11:47 PM FLAT SORTING MACHINE CLERK Ventricular Rate 102 BPM Atrial Rate 28 BPM QRS Duration 44 ms Q-T Interval 468 ms QTC Calculation(Bazett) 609 ms R [place] 92 degrees [place] 208 degrees Undetermined rhythm Low voltage QRS Possible Anterolateral infar ct , age undetermined ST & T wave abnormality, 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 ECG 12-LEAD Routine 04/24/2019 11:06 PM FLAT SORTING MACHINE CLERK Procedure Note - Interface, External Ris In - 04/24/2019 11:47 PM FLAT SORTING MACHINE CLERK Ventricular Rate 72 BPM Atrial Rate 72 BPM P-R Interval 152 ms QRS Duration 142 ms Q-T Interval 448 ms QTC Calculation(Bazett) 490 ms P [place] 70 degrees R [place] 36 degrees T [place] 105 degrees Normal sinus rhythm Left bundle branch block Abnormal ECG When compared with ECG of 23:02, Previous ECG has undetermine d rhythm, needs review Left bundle branch block is now Present ECG 12-LEAD Routine 04/24/2019 11:02 PM FLAT SORTING MACHINE CLERK Procedure Note - Interface, External Ris In - 04/24/2019 11:46 PM FLAT SORTING MACHINE CLERK Ventricular Rate 98 BPM Atrial Rate 0 BPM QRS Duration 8 ms Q-T Interval 446 ms QTC Calculation(Bazett) 569 ms [place] 0 degrees [place] 90 degrees Poor data quality, interp retation may be adversely affected AGE AND GENDER SPECIFIC E CG ANALYSIS Undetermined rhythm Indeterminate axis Pulmonary disease pattern ST elevation consider inferi or injury or acute infarct Prolonged QT ACUTE ID / STEMI Abnormal ECG When compared with ECG of 22:52, Current undetermined rhythm precludes rhythm comparison, needs review ECG 12-LEAD Routine 04/24/2019 10:52 PM FLAT SORTING MACHINE CLERK Resu lts for this procedure are in the results section . ECG 12-LEAD Routine 04/24/2019 10:52 PM FLAT SORTING MACHINE CLERK Procedure Note - Interface, External Ris In - 04/24/2019 11:46 PM FLAT SORTING MACHINE CLERK Ventricular Rate 41 BPM Atrial Rate 80 BPM QRS Duration 136 ms Q-T Interval 498 ms QTC Calculation(Bazett) 410 ms P [place] 59 degrees [place] 86 degrees [place] 73 degrees Sinus rhythm with complete h eart block and Wide QRS rhythm Right bundle branch block Abnormal ECG When compared with ECG of 21:09, Wide QRS rhythm has replaced Sinus rhythm PERIPHERAL VASCULAR REPORT - SCAN 04/24/2019 9:20 PM FLAT SORTING MACHINE CLERK ECG 12-LEAD Routine 04/24/2019 9:09 PM FLAT SORTING MACHINE CLERK Procedure Note - Interface, External Ris In - 04/24/2019 8:12 PM FLAT SORTING MACHINE CLERK Ventricular Rate 41 BPM Atrial Rate 41 BPM QRS Duration 134 ms Q-T Interval 494 ms QTC Calculation(Bazett) 407 ms P [place] 66 degrees [place] 77 degrees [place] 83 degrees Marked sinus bradycardia wit h 1st degree A-V block Right bundle branch block Abnormal ECG No previous ECGs available ECG 12-LEAD Routine 04/24/2019 9:09 Results for this PM FLAT SORTING MACHINE CLERK procedure are i n the results section. POCT-ACT Routine 04/24/2019 6:33 Results for this PM FLAT SORTING MACHINE CLERK procedure are i n the results section. TRANSFUSION SERVICE 04/24/2019 6:00 REPORT - SCAN PM FLAT SORTING MACHINE CLERK POCT-ACT Routine 04/24/2019 5:56 Results for this PM FLAT SORTING MACHINE CLERK procedure are i n the results section. POCT-ACT Routine 04/24/2019 5:42 Results for this PM FLAT SORTING MACHINE CLERK procedure are i n the results section. IMPELLA PERC LVAD 04/24/2019 4:30 Coronary artery MCR - IP PROC PM FLAT SORTING MACHINE CLERK disease with angina ONLY pectoris, unspecified vessel or lesion type, unspecified whether [place] or transplanted heart (HCC) L HEART CATH ONLY - 04/24/2019 4:30 Coronary artery NO ANGIOS PM FLAT SORTING MACHINE CLERK disease with angina pectoris, unspecified vessel or lesion type, unspecified whether [place] or transplanted heart (HCC) POCT-GLUCOSE METER Routine 04/24/2019 1:06 Resul ts for this PM FLAT SORTING MACHINE CLERK procedure are i n the results section. APTT Routine 04/24/2019 12:11 Results for this PM FLAT SORTING MACHINE CLERK procedure are i n the results section. POCT-GLUCOSE METER Routine 04/24/2019 9:48 Resul ts for this AM FLAT SORTING MACHINE CLERK procedure are i n the results section. APTT Routine 04/24/2019 5:53 Results for this AM FLAT SORTING MACHINE CLERK procedure are i n the results section. CAROTID DOPPLER Routine 04/24/2019 5:40 Results for this BILATERAL AM FLAT SORTING MACHINE CLERK procedure are i n the results section. ECG 12-LEAD Routine 04/23/2019 11:47 Results for this PM FLAT SORTING MACHINE CLERK procedure are i n the results section. ECG 12-LEAD Routine 04/23/2019 11:46 Results for this PM FLAT SORTING MACHINE CLERK procedure are i n the results section. ABORH, MANUAL STAT 04/23/2019 11:23 Results fo r this PM FLAT SORTING MACHINE CLERK procedure are i n the results section. CBC W/PLT COUNT & Routine 04/23/2019 10:56 Result s for this AUTO DIFFERENTIAL PM FLAT SORTING MACHINE CLERK procedure are in the results section. TYPE AND SCREEN, Routine 04/23/2019 10:56 Results for this AUTOMATED PM FLAT SORTING MACHINE CLERK procedure are i n the results section. PROTHROMBIN TIME/INR Routine 04/23/2019 10:56 Res ults for this PM FLAT SORTING MACHINE CLERK procedure are i n the results section. APTT Routine 04/23/2019 10:56 Results for this PM FLAT SORTING MACHINE CLERK procedure are i n the results section. APTT Routine 04/23/2019 10:56 Results for this PM FLAT SORTING MACHINE CLERK procedure are i n the results section. HEMOGLOBIN A1C AP Routine 04/23/2019 10:56 Results f or this PM FLAT SORTING MACHINE CLERK procedure are i n the results section. BASIC METABOLIC Routine 04/23/2019 10:56 Results for this PANEL (7) PM FLAT SORTING MACHINE CLERK procedure are i n the results section. CBC W/PLT COUNT & Routine 04/23/2019 10:56 Result s for this AUTO DIFFERENTIAL PM FLAT SORTING MACHINE CLERK procedure are in the results section. POCT-GLUCOSE METER Routine 04/23/2019 10:47 Resul ts for this PM FLAT SORTING MACHINE CLERK procedure are i n the results section. after 02/26/2019 Results ARRYTHMIA IMPLANT REPORT - SCAN (05/03/2019 12:40 PM FLAT SORTING MACHINE CLERK)Only the most recent of 2 resultswithin the time period is included. Narrative Performed At This result has an attachment that is no t available. RHYTHM STRIP - SCAN (05/01/2019 11:22 AM FLAT SORTING MACHINE CLERK)Only the most recent of4 results within the time period is included. Narrative Performed At This result has an attachment that is no t available. CARDIAC CATH REPORT - SCAN (04/30/2019 2:11 PM FLAT SORTING MACHINE CLERK) Narrative Performed At This result has an attachment that is no t available. CARDIAC CATH REPORT - SCAN (04/30/2019 2:11 PM FLAT SORTING MACHINE CLERK) Narrative Performed At This result has an attachment that is no t available. POC-Glucose meter (04/28/2019 12:23 PM FLAT SORTING MACHINE CLERK)Only the most recent of16 results within the time period is included. POC-Glucose Meter 208 (H)Comment: 70 - 110 mg/dL MARGARET ESTRADA : TESTED AT [facility] [address] [place] [address], [id number]: Senior Principal/Technic heather ID = [id number] for MARY MORRIS Specimen Blood Performing Organization Address City/State/Zipcode Phone Number [address] [address] CENTER ECG 12 lead (04/28/2019 7:01 AM FLAT SORTING MACHINE CLERK)Only the most recent of11 resultswithin the time period is included. Specimen Narrative Performed At Ventricular Rate 75 BPM GE MUSE Atrial Rate 75 BPM P-R Interval 150 ms QRS Duration 142 ms Q-T Interval 416 ms QTC Calculation(Bazett) 464 ms P [place] 54 degrees R [place] -44 degrees T [place] 108 degrees Normal sinus rhythm Left axis deviation Left bundle branch block Abnormal ECG When compared with ECG of 27-APR-2019 07 :00, QRS axis Shifted left Confirmed by MD ALICIA, SAVITA ([id number]) on 04/28/2019 2 :36:47 PM Procedure Note Interface, External Ris In - 04/28/2019 2:36 PM FLAT SORTING MACHINE CLERK Ventricular Rate 75 BPM Atrial Rate 75 BPM P-R Interval 150 ms QRS Duration 142 ms Q-T Interval 416 ms QTC Calculation(Bazett) 464 ms P [place] 54 degrees R [place] -44 degrees T [place] 108 degrees Normal sinus rhythm Left axis deviation Left bundle branch block Abnormal ECG When compared with ECG of 27-APR-2019 07 :00, QRS axis Shifted left Confirmed by MD ALICIA, SAVITA ([id number]) o n 04/28/2019 2:36:47 PM Performing Organization Address City/State/Zipcode Phone Number [facility] BUN and Creatinine (04/28/2019 4:46 AM FLAT SORTING MACHINE CLERK)Only the most recent of2 results within the time period is included. BUN 12 7 - 21 mg/dL [facility] Creatinine 0.61 0.57 - 1.25 [facility] mg/dL [facility] EGFR 101Comment: mL/min/1.73 sq [facility] ESTIMATED GFR IS [facility] ACCURATE [place] CREATININE CLEARANCE IN PREDICTING GLOMERULAR FILTRATION RATE. ESTIMATED GFR IS NOT APPLICABLE FOR DIALYSIS PATIENTS. Specimen Blood Performing Organization Address City/[facility] Corporationcode Phone Number [facility] [address] [place] [address] CENTER CBC (Hemogram only) (04/28/2019 4:46 AM FLAT SORTING MACHINE CLERK)Only the most recent of4 results within the time period is included. Pathologist Sig nature WBC 13.4 (H) 3.5 - 10.5 K/L [facility] RBC 3.66 (L) 3.93 - 5.22 M/L [facility] Hemoglobin 10.6 (L) 11.2 - 15.7 GM/DL [facility] Hematocrit 32.9 (L) 34.1 - 44.9 % [facility] MCV 89.9 79.4 - 94.8 fL [facility] MCH 29.0 25.6 - 32.2 pg [facility] MCHC 32.2 32.2 - 35.5 GM/DL [facility] RDW 13.5 11.7 - 14.4 % [facility] Platelets 319 150 - 450 K/CU MM [facility] MPV 9.9 9.4 - 12.3 fL [facility] nRBC 0 0 - 0 /100 WBC [facility] Specimen Blood Performing Organization Address City/State/Zipcode Phone Number [address] [address] CENTER Magnesium (04/28/2019 4:46 AM FLAT SORTING MACHINE CLERK)Only the most recent of5 resultswithin the time period is included. Pathologist Sig nature Magnesium 1.6 1.6 - 2.6 mg/dL [facility] Specimen Blood Performing Organization Address City/State/Zipcode Phone Number [facility] [address] [place] [address] [place] Basic Metabolic Panel (04/28/2019 4:46 AM FLAT SORTING MACHINE CLERK)Only the most recent of5 results within the time period is included. Sodium 137 136 - 145 meq/L [facility] Potassium 3.5 3.5 - 5.1 meq/L [facility] Chloride 105 98 - 107 meq/L [facility] CO2 27 22 - 29 meq/L [facility] BUN 12 7 - 21 mg/dL [facility] Creatinine 0.61 0.57 - 1.25 [facility] mg/dL [facility] Glucose 128 (H) 70 - 105 mg/dL [facility] Calcium 8.1 (L) 8.4 - 10.2 [facility] mg/dL [facility] EGFR 101Comment: mL/min/1.73 sq [facility] MAXIM ESTIMATED GFR IS NOT [facility] ACCURATE [place] CREATININE CLEARANCE IN PREDICTING GLOMERULAR FILTRATION RATE. ESTIMATED GFR IS NOT APPLICABLE FOR DIALYSIS PATIENTS. Specimen Blood Performing Organization Address City/State/Zipcode Phone Number MARGARET ESTRADA [facility] [address] [place] [address] CENTER XR chest 1 view portable / bedside (04/27/2019 7:13 AM FLAT SORTING MACHINE CLERK)Only the most recent of3 resultswithin the time period is included. Specimen Narrative Performed At FINAL REPORT [facility] CLINICAL HISTORY: CIED Implantation TECHNIQUE: 1 view of the chest. COMPARISON: 04/26/2019 IMPRESSION: A left chest wall dual-lead pacemaker is again seen without evidence for pneumothorax. Pulmonary vascular con gestive findings appear increased. Small bilateral pleural effus ions appear increased. The cardiomediastinal silhouette is magnifie d by technique. A dextroscoliosis of the thoracic spine is unchanged. Signed: Cindy Lee MD Report Verified Date/Time: 04/27/2019 08:04:20 Reading Location: [address] Room Procedure Note Interface, External Ris In - 04/27/2019 8:06 AM FLAT SORTING MACHINE CLERK FINAL REPORT CLINICAL HISTORY: CIED Implantation TECHNIQUE: 1 view of the chest. COMPARISON: 04/26/2019 IMPRESSION: A left chest wall dual-lead pacemaker is again seen without evidence for pneumothorax. Pulmonary vascular con gestive findings appear increased. Small bilateral pleural effus ions appear increased. The cardiomediastinal silhouette is magnifie d by technique. A dextroscoliosis of the thoracic spine is unchanged. Signed: Cindy Lee MD Report Verified Date/Time: 04/27/2019 0 8:04:20 Reading Location: [facility] C[address] [facility] Performing Organization Address City/State/Zipcode Phone Number RIS Islet Cell Ab Titer (04/27/2019 5:48 AM FLAT SORTING MACHINE CLERK) Islet Cell Ab TNP LESS THAN [facility] Titer Comment: 1.25 [facility] Test Not Performed. Screening test Negative or Not Det ected. Titer not units performed. NOTE: End point titers are compared to a single inte rnational reference standard and values are reported in JDF ([employer]) units. Specimen Blood Narrative Performed At Performing Lab [facility] E[facility] [employer] [place] [address] [place] [address] Irlanda Ocampo MD, PhD, ANISH Performing Organization Address [facility] Corporationcosd Phone Number [place] [address] INCORPORATED [address] [facility] Islet Cell Ab Screen (04/27/2019 5:48 AM FLAT SORTING MACHINE CLERK) [facility] Islet Cell Ab NEGATIVE NEGATIVE [facility] Comment: INCORPORATED This test was developed and its analytical performance characteristics have been determined by [facility]. It has not been cleared or approved by FDA. This assay has been validated pursuant to the CLIA regulations and is used for clini erwin purposes. Specimen Blood Narrative Performed At Performing Lab [facility] [employer] [facility] [place] [address] [place] [address] Irlanda Ocampo MD, PhD, ANISH Performing Organization Address [facility] Phone Number [place] [address] INCORPORATED [address] [facility] MERRICK-65 (04/27/2019 5:48 AM FLAT SORTING MACHINE CLERK) [facility] MERRICK-65 <5 <5 IU/mL [facility] Comment: INCORPORATED This test was performed using the GAD65 TAWNYA method w hich is standardized against the International reference preparation 97/550 . Specimen Blood Narrative Performed At Performing Lab [facility] [employer] [place] [address] [place] [address] Irlanda Ocampo MD, PhD, ANISH Performing Organization Address [facility] Corporationcode Phone Number [place] [address] INCORPORATED [address] [facility] Islet Cell AB Screen (04/27/2019 5:48 AM FLAT SORTING MACHINE CLERK) Islet Cell Ab Refer to [facility] Profile individual [facility] Cell Ab and/or Islet Cell Ab Titer results. Specimen Blood Performing Organization Address City/State/Zipcode Phone Number [facility] [place] [address] INCORPORATED [address] [facility] ECHOCARDIOGRAM REPORT - SCAN (04/26/2019 9:21 PM FLAT SORTING MACHINE CLERK) Narrative Performed At This result has an attachment that is no t available. TRANSFUSION SERVICE REPORT - SCAN (04/25/2019 6:03 PM FLAT SORTING MACHINE CLERK)Only the most recent of2 resultswithin the time period is included. Narrative Performed At This result has an attachment that is no t available. Troponin I (04/25/2019 4:14 PM FLAT SORTING MACHINE CLERK)Only the most recent of4 resultswithin the time period is included. Pathologist Sig nature Troponin I 0.12 (H) 0.00 - 0.03 ng/mL [facility] Specimen Blood Narrative Performed At Troponin I (TnI) levels must be interpreted [facility] in the context of the presenting symptoms and the clinical findings. Elevated TnI levels indicate myocardial damage, but are not specific for ischemic heart disease. Elevated TnI levels are seen in patients with other cardiac conditions (including myocarditis and congestive heart failure), and slight TnI elevations occur in patients with other conditions, including sepsis, renal failure, acidosis, acute neurological disease, and persistent tachyarrhythmia. Performing Organization Address [facility]/Zipcode Phone Number [address] [address] CENTER Creatine Kinase (CK) (04/25/2019 9:11 AM FLAT SORTING MACHINE CLERK) Pathologist Sig nature Total CK 63 29 - 200 U/L [facility] CENTER Specimen Blood Performing Organization Address City/[facility]/Zipcode Phone Number [place] [phone] [place] [address] CENTER aPTT (04/25/2019 5:40 AM FLAT SORTING MACHINE CLERK)Only the most recent of6 resultswithin the time period is included. Pathologist Sig nature PTT 45.1 (H) 22.5 - 36.0 seconds [facility] Specimen Blood Performing Organization Address [facility] Corporationcode Phone Number [facility] [address] [place] [address] [place] Lipid panel (04/25/2019 5:40 AM FLAT SORTING MACHINE CLERK) Pathologist Sig [facility] Triglycerides 117Comment: Specimen mg/dL [facility] slightly hemolyzed [facility] Cholesterol 122Comment: Specimen mg/dL [facility] slightly hemolyzed [facility] HDL 36 mg/dL [facility] LDL Calculated 63 mg/dL [facility] Specimen Blood Narrative Performed At Triglyceride Reference Range: [facility] Low Risk <150 Borderline 150-199 High Risk 200-499 Very High Risk >=500 Cholesterol Reference Range: Low Risk <200 Borderline 200-239 High Risk >240 HDL Cholesterol Reference Range: Low Risk >=60 High Risk <40 LDL Cholesterol Reference Range: Optimal <100 Near Optimal 100-129 Borderline 130-159 High 160-189 Very High >=190 Performing Organization Address City/[facility] Corporationcode Phone Number [facility] [address] [place] [address] [place] 2D Echo W/Doppler(CW/PW/Color) (04/25/2019 1:23 AM FLAT SORTING MACHINE CLERK) Pathologist Sig nature Ejection Fraction 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 Clinical History HGB 14.2 HCT 42.5 % DM, CAD, HTN, HLD, V TACH Height: 68 inches Weight: 73.94 kg (163 lbs) BSA: 1.87 m^2 BMI: 24.78 kg/m^2 HR: 58 bpm BP: 155/85 mmHg Summary 1. Normal LV size and function.LVEF is > 60% 2. Diastology: Grade 1 diastolic dysfun ction 3. Normal RV size and function 4. No significant valvular heart diseas e 5. Unable to estimate PASP 6. No pericardial effusion Previous Study No prior exam available for comparison. Signature Findings Left Ventricle The left ventricle is chamber size (by PSLAX dimension) is normal (female - LVIDd 3.8-5.2cm) . Normal LV wall thickness. Septal motion is abnormal, likely related to conduction abnormality . The other segments contract normally. Global LV systolic function normal . LVEF by Brown's method of disk assessment is normal (>60%) . The LVEF was measured using Brown's bi-plane method of disk . Grade 1 diastolic dysfunction (impaired relaxati on and low-normal LA pressure). Left Atrium LA size is normal (16-34 ml/m2) . Right Ventricle The right ventricular chamber size and systolic function are within normal limits. Right Atrium RA cavity size is normal . Aortic Valve Mild AoV cusp thickening. AoV cusp mobility is normal . Mitral Valve Mild mitral annular calcification. Mild MV leaflet thickening. Tricuspid Valve TV structure is normal. Unable to estimate peak systolic PA pressure; inadequate TR velocity signal. Pulmonic Valve PV is not well visualized; function appears normal by Doppler visualized. Aorta Aortic root size (SInus of Valsalva diameter) is norm al . Pericardium No significant pericardial effusion is visualized. IVC/SVC/PA/PV/Pleural The estimated RA pressure by IVC dynamics 5-10mmHg . Chambers/Structures Left Atrium LA Volume: 47.64 ml LA Area: 17.18 cm^2 LA Vol. Index: 25 ml/m^2 Left Ventricle LVIDd: 4.19 cm LV Septum Diastolic: 0.89 cm LV PW Diastolic: 0.92 cm LVEDV Brown's:59.55 ml LVESV Brown's:22.69 ml LVEF Brown's: 61.9 % LVEDVI: 32 ml/m^2 LVESVI: 12 ml/m^2 LVOT Diameter: 1.97 cm Aorta Ao Root S of [place].: 2.7 cm Doppler/Quantitative Measurements Mitral Valve MV Peak E-Wave: 0.82 m/s MV Peak A-Wave: 1.01 m/s E/A Ratio: 0.82 Peak Gradient: 2.72 mmHg Deceleration Time: 231.1 msec MV Haja. Peak: Tissue Doppler E' Septal Velocity: 0.07 m/s E/E': 11.92 E' Lateral Velocity: 0.08 m/s Aortic Valve Peak Velocity: 1.14 m/s Mean Velocity: 0.78 m/s Peak Gradient: 5.17 mmHg Mean Gradient: 2.8 mmHg AV Area (continuity): 2.64 cm^2 AV VTI: 26.24 cm AV DVI: 0.87 LVOT Peak Velocity: 1.19 m/s Peak Gradient: 5.63 mmHg Mean Velocity: 0.74 m/s Mean Gradient: 2.7 mmHg LVOT Diameter: 1.97 cm LVOT VTI: 22.78 cm LVOT Area: 3.05 cm^2 LVOT SV:69.4 ml LVOT CO: 4.03 l/min LVOT CI: 2.16 l/min/m^2 Procedure Note Interface, External Ris In - 04/26/2019 9:09 AM FLAT SORTING MACHINE CLERK Transthoracic Echocardiography Report (TTE) Demographics Patient Name CHRISSIE ESTRADA Date o Study 04/25/2019 Gender Female Visit Number [id number] Race Unknown Room N [facility] C827 Number Date of 1960 Referr coby romero Age 59 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 Clinical History HGB 14.2 HCT 42.5 % DM, CAD, HTN, HLD, V TACH Height: 68 inches Weight: 73.94 kg (163 lbs) BSA: 1.87 m^2 BMI: 24.78 kg/m^2 HR: 58 bpm BP: 155/85 mmHg Summary 1. Normal LV size and function.LVEF is > 60% 2. Diastology: Grade 1 diastolic dysfun ction 3. Normal RV size and function 4. No significant valvular heart diseas e 5. Unable to estimate PASP 6. No pericardial effusion Previous Study No prior exam available for comparison. Signature Findings Left Ventricle The left ventric le is chamber size (by PSLAX dimension) is no rmal (female - LVIDd 3.8-5.2cm) . Normal LV wall t hickness. Septal motion is abnormal, likely related to conduction abnor mality . The other segmen ts contract normally. Global LV systol ic function normal . LVEF by Brown' s method of disk assessment is normal (>60%) . The LVEF was anusha sured using Brown's bi-plane method of disk . Grade 1 diastoli c dysfunction (impaired relaxation and low-normal L A pressure). Left Atrium LA size is benja l (16-34 ml/m2) . Right Ventricle The right ventri cular chamber size and systolic function are wit hin normal limits. Right Atrium RA cavity size i s normal . Aortic Valve Mild AoV cusp th ickening. AoV cusp mobilit y is normal . Mitral Valve Mild mitral carmelina lar calcification. Mild MV leaflet thickening. Tricuspid Valve TV structure is normal. Unable to estima te peak systolic PA pressure; inadequate TR ve locity signal. Pulmonic Valve PV is not well v isualized; function appears normal by Doppler visua lized. Aorta Aortic root size (SInus of Valsalva diameter) is normal . Pericardium No significant p ericardial effusion is visualized. IVC/SVC/PA/PV/Pleural The estimated RA pressure by IVC dynamics 5-10mmHg . Chambers/Structures Left Atrium LA Volume: 47.64 ml LA Area: 17.18 cm^2 LA Vol. Index: 25 ml/m^2 Left Ventricle LVIDd: 4.19 cm LV Septum Diastolic: 0.89 cm LV PW Diastolic: 0.92 cm LVEDV Brown's:59.55 ml LVESV Brown's:22.69 ml LVEF Brown's: 61.9 % LVEDVI: 32 ml/m^2 LVESVI: 12 ml/m^2 LVOT Diameter: 1.97 cm Aorta Ao Root S of [place].: 2.7 cm Doppler/Quantitative Measurements Mitral Valve MV Peak E-Wave: 0.82 m/s M V Peak A-Wave: 1.01 m/s E /A Ratio: 0.82 P eak Gradient: 2.72 mmHg D eceleration Time: 231.1 msec MV Haja. Peak: Tissue Doppler E' Septal Velocity: 0.07 m/s E /E': 11.92 E' Lateral Velocity: 0.08 m/s Aortic Valve Peak Velocity: 1.14 m/s Mean Velocity: 0.78 m/s Peak Gradient: 5.17 mmHg Mean Gradient: 2.8 mmHg AV Area (continuity): 2.64 cm^2 AV VTI: 26.24 cm AV DVI: 0.87 LVOT Peak Velocity: 1.19 m/s Pea k Gradient: 5.63 mmHg Mean Velocity: 0.74 m/s Anusha n Gradient: 2.7 mmHg LVOT Diameter: 1.97 cm LVO T VTI: 22.78 cm LVOT Area: 3.05 cm^2 LVO T SV:69.4 ml LVOT CO: 4.03 l/min LVO T CI: 2.16 l/min/m^2 Performing Organization Address [facility] Corporationcode Phone Number [facility] MKCKESSON CPACS PT/aPTT (04/24/2019 11:20 PM FLAT SORTING MACHINE CLERK) Pathologist Sig nature Protime 13.8 11.9 - 14.2 seconds [facility] INR 1.1 <=5.9 [facility] PTT 31.1 22.5 - 36.0 seconds [facility] Specimen Blood Narrative Performed At Effective 10/10/2018: PT Reference Range [facility] Change New: 11.9-14.2 Previous: 11.7-14.7 RECOMMENDED COUMADIN/WARFARIN INR THERAPY RANGES STANDARD DOSE: 2.0-3.0 Includes: PROPHYLAXIS for venous thrombosis, systemic embolization; TREATMENT for venous thrombosis and/or pulmonary embolus. HIGH RISK: Target INR is 2.5-3.5 for patients wiht mechanical heart valves. Prior to initiating heparin Prior to initiating heparin Performing Organization Address [facility] Corporationcosd Phone Number [address] [address] CENTER Lactic acid, venous (04/24/2019 11:20 PM FLAT SORTING MACHINE CLERK) Lactate, Venous 1.1Comment: 0.5 - 2.2 [facility] slightly mmol/L [facility] hemolyzed CENTER Specimen Blood Performing Organization Address [facility] Corporationcode Phone Number [address] [address] CENTER Platelet count (04/24/2019 11:20 PM FLAT SORTING MACHINE CLERK) Pathologist Sig nature Platelets 348 150 - 450 K/CU MM [facility] Specimen Blood Performing Organization Address [facility]/Zipcode Phone Number [place] [phone] [place], [place] [id number] [place] Phosphorus (04/24/2019 11:20 PM FLAT SORTING MACHINE CLERK) Pathologist Sig nature Phosphorus 3.2Comment: 2.3 - 4.7 mg/dL [facility] Specimen slightly [place] [facility] Specimen Blood Performing Organization Address City/State/Zipcode Phone Number [facility] [address], [place] [phone] [place] Comprehensive metabolic panel (04/24/2019 11:20 PM FLAT SORTING MACHINE CLERK) Protein, Total 6.5Comment: 6.0 - 8.3 [facility] Specimen slightly gm/dL [facility] Albumin 3.4 (L)Comment: 3.5 - 5.0 [facility] Specimen slightly g/dL [facility] Alkaline 146 40 - 150 U/L [facility] Phosphatase [facility] Total Bilirubin 0.5Comment: 0.2 - 1.2 [facility] Specimen slightly mg/dL [facility] Sodium 134 (L) 136 - 145 [facility] meq/L [facility] Potassium 4.0Comment: 3.5 - 5.1 [facility] Specimen slightly meq/L [facility] Chloride 106 98 - 107 [facility] meq/L [facility] CO2 18 (L) 22 - 29 meq/L [facility] BUN 13 7 - 21 mg/dL [facility] Creatinine 0.69Comment: 0.57 - 1.25 [facility] Specimen slightly mg/dL [facility] Glucose 249 (H) 70 - 105 [facility] mg/dL [facility] Calcium 8.5 8.4 - 10.2 [facility] mg/dL [facility] AST 27Comment: 5 - 34 U/L [facility] Specimen slightly [facility] ALT 30Comment: 6 - 55 U/L [facility] Specimen slightly [facility] hemolyzed [facility] EGFR 88Comment: mL/min/1.73 [facility] ESTIMATED GFR IS sq m [facility] NOT ACCURATE MEDICAL CENTER CREATININE CLEARANCE IN PREDICTING GLOMERULAR FILTRATION RATE. ESTIMATED GFR IS NOT APPLICABLE FOR DIALYSIS PATIENTS. Specimen Blood Performing Organization Address City/State/Zipcode Phone Number [address] [phone] CENTER PERIPHERAL VASCULAR REPORT - SCAN (04/24/2019 9:20 PM FLAT SORTING MACHINE CLERK) Narrative Performed At This result has an attachment that is no t available. POC ACTIVATED CLOTTING TIME (04/24/2019 6:33 PM FLAT SORTING MACHINE CLERK)Only the most recent of3 resultswithin the time period is included. Activated Clotting 301Comment: sec [facility] Time Reference Range: [facility] 74-137 seconds, [place] Baseline/TESTED AT [address] [address] Specimen Blood Performing Organization Address City/[facility]/Zipcode Phone Number [address] [address] [place] Carotid doppler bilateral (04/24/2019 5:40 AM FLAT SORTING MACHINE CLERK) Pathologist Sig nature Ejection Fraction [facility] Specimen Impressions Performed At Right Impression [facility] 1. There is <50% diameter reduction (approximately 16% by 2-D measurement) in the internal carotid artery with a peak velocity of 72.7/24.6 cm/sec and heterogeneous plaque. 2. There is non-occluding plaque in the external carotid artery. 3. There is non-occluding plaque in the common carotid artery. 4. The vertebral artery flow is antegrade and normal. 5. The subclavian artery is within normal limits where visualized. Left Impression 1. There is 70-99% diameter reduction (approximately 71% by 2-D measurement) in the internal carotid artery with heterogeneous plaque, a peak velocity of 365/87.9 cm/sec and an ICA/CCA peak systolic velocity ratio of 5.88. 2. There is non-occluding plaque in the external carotid artery. 3. There is non-occluding plaque in the common carotid artery. 4. The vertebral artery flow is antegrade and normal. 5. The subclavian artery is within normal limits where visualized. Conclusions Summary Carotid duplex scanning and color flow imaging were performed bilaterally. The arteries were adequately visualized. The right internal carotid artery had <50% hemodynamically insignificant stenosis (approximately 16% by 2-D measurement) with heterogeneous plaque. The left internal carotid artery had 70-99% hemodynamically significant stenosis (approximately 71% by 2-D measurement) with heterogeneous plaque a peak velocity of 365/87.9 cm/sec and an ICA/CCA peak systolic velocity ratio of 5.88. The vertebral artery flow was antegrade and normal bilaterally. The subclavian arteries were patent with normal flow bilaterally where visualized. Signature Velocities are measured in cm/s ; Diameters are measured in cm Carotid Right Measurements + +----+----+-----+ +---- + + !Location !PSV !EDV !Angle!%Stenosis 2D!%Stenosis Doppler!Tortuosity ! + +----+----+-----+ +---- + + !Prox CCA !78.6!21.7!60 ! ! ! ! + +----+----+-----+ +---- + + !Dist CCA !67.4!22.9!60 ! ! ! ! + +----+----+-----+ +---- + + !Prox ICA !72.7!24.6!60 !16% !<50% ! ! + +----+----+-----+ +---- + + !Dist ICA !85 !34.6!60 ! ! ! ! + +----+----+-----+ +---- + + !Prox ECA !65.1!12.3!60 ! ! ! ! + +----+----+-----+ +---- + + !Vertebral !45.6!11 !60 ! ! ! ! + +----+----+-----+ +---- + + !Prox Subclavian!240 ! !60 ! ! ! ! + +----+----+-----+ +---- + + - There is antegrade vertebral flow noted on the right side. - Additional Measurements:ICAPSV/CCAPSV 1.26.ICAEDV/CCAEDV 1.59. Carotid Left Measurements + +----+----+-----+ +---- + + !Location !PSV !EDV !Angle!%Stenosis 2D!%Stenosis Doppler!Tortuosity ! + +----+----+-----+ +---- + + !Prox CCA !72.1!15.8!60 ! ! ! ! + +----+----+-----+ +---- + + !Dist CCA !62.1!21.7!60 ! ! ! ! + +----+----+-----+ +---- + + !Prox ICA !365 !87.9!60 !71% !70-99% ! ! + +----+----+-----+ +---- + + !Dist ICA !258 !45.6!60 ! ! ! ! + +----+----+-----+ +---- + + !Prox ECA !96.7!11.7!60 ! ! ! ! + +----+----+-----+ +---- + + !Vertebral !35.9!10 !60 ! ! ! ! + +----+----+-----+ +---- + + !Prox Subclavian!208 ! !60 ! ! ! ! + +----+----+-----+ +---- + + - There is antegrade vertebral flow noted on the left side. - Additional Measurements:ICAPSV/CCAPSV 5.88.ICAEDV/CCAEDV 5.56. Narrative Performed At LAB - Carotid Duplex Study [facility] Demographics Patient Name CHRISSIE ESTRADA Date of Study 04/24/2019 Age 59 Visit Number [id number] Gender Female Accession Number [id number] Date of 1960 Referring Darylstu Pablo, Room Number 1114 Physician Wire Welder Ehsan Kaplan Interpreting Lorenza Benoit MD Physician Procedure Type of Study: Cerebral: Carotid, CAROTID DOPPLER, POLO ATERAL. Indications for Study:Possible Bypass. Patient Status:Routine. Study Location:Portable. Technical Quality:Adequate visualization . - Results were reported to: EMMIE Calabrese @ 6:15AM. Risk Factors History of Disease + +----+ + !Diagnosis !Date!Comments ! + +----+ + !History/Risk Factors: ! !Current Smoker, CAD, DM, HLD ! + +----+ + Procedure Note Interface, External Ris In - 04/24/2019 8:36 AM [facility] LAB - Carotid Duplex Study Demographics Patient Name CHRISSIE ESTRADA Date of Study 04/24/2019 Age 59 Visit Number [id number] [place] Female Accession Number [id number] Date of 1960 Referring Daryl Pablo, Room Number 1114 Physician Wire Welder Ehsan Kaplan Inte rpretin Lorenza Benoit MD Phys ician Procedure Type of Study: Cerebral: Carotid, CAROTID DOPPLER, POLO ATERAL. Indications for Study:Possible Bypass. Patient Status:Routine. Study Location:Portable. Technical Quality:Adequate visualization . - Results were reported to: EMMIE Calabrese @ 6:15AM. Risk Factors History of Disease + +----+------- + !Diagnosis !Date!Comment s ! + +----+------- + !History/Risk Factors: ! !Current Smoker, CAD, DM, HLD ! + +----+------- + Impressions Right Impression 1. There is <50% diameter reduction (olya roximately 16% by 2-D measurement) in the internal carotid artery with a pe ak velocity of 72.7/24.6 cm/sec and heterogeneous plaque. 2. There is non-occluding plaque in the external carotid artery. 3. There is non-occluding plaque in the common carotid artery. 4. The vertebral artery flow is antegrad e and normal. 5. The subclavian artery is within benja l limits where visualized. Left Impression 1. There is 70-99% diameter reduction (a pproximately 71% by 2-D measurement) in the internal carotid artery with hete rogeneous plaque, a peak velocity of 365/87.9 cm/sec and an ICA/CCA peak syst olic velocity ratio of 5.88. 2. There is non-occluding plaque in the external carotid artery. 3. There is non-occluding plaque in the common carotid artery. 4. The vertebral artery flow is antegrad e and normal. 5. The subclavian artery is within benja l limits where visualized. Conclusions Summary Carotid duplex scanning and color flow imaging were performed bilaterally. The arteries were adequately visualized . The right internal carotid artery had <50% hemodynamically insignificant stenosis (approximately 16% by 2-D measurement) with heterogeneous plaque. The left internal carotid artery had 70-99% hemodynamically significant stenosis (approximately 71% by 2-D measurement) with heterogeneous plaque a peak velocity of 365/87.9 cm/sec and an ICA/CCA peak systolic velocity r atio of 5.88. The vertebral artery flow was antegrade and normal bilateral ly. The subclavian arteries were patent with normal flow bilaterally whe re visualized. Signature Velocities are measured in cm/s ; Diamet ers are measured in cm Carotid Right Measurements + +----+----+-----+------- -----+ + + !Location !PSV !EDV !Angle!%Stenos is 2D!%Stenosis Doppler!Tortuosity ! + +----+----+-----+------- -----+ + + !Prox CCA !78.6!21.7!60 ! ! ! ! + +----+----+-----+------- -----+ + + !Dist CCA !67.4!22.9!60 ! ! ! ! + +----+----+-----+------- -----+ + + !Prox ICA !72.7!24.6!60 !16% !<50% ! ! + +----+----+-----+------- -----+ + + !Dist ICA !85 !34.6!60 ! ! ! ! + +----+----+-----+------- -----+ + + !Prox ECA !65.1!12.3!60 ! ! ! ! + +----+----+-----+------- -----+ + + !Vertebral !45.6!11 !60 ! ! ! ! + +----+----+-----+------- -----+ + + !Prox Subclavian!240 ! !60 ! ! ! ! + +----+----+-----+------- -----+ + + - There is antegrade vertebral flow no magda on the right side. - Additional Measurements:ICAPSV/CCAPS V 1.26.ICAEDV/CCAEDV 1.59. Carotid Left Measurements + +----+----+-----+------- -----+ + + !Location !PSV !EDV !Angle!%Stenos is 2D!%Stenosis Doppler!Tortuosity ! + +----+----+-----+------- -----+ + + !Prox CCA !72.1!15.8!60 ! ! ! ! + +----+----+-----+------- -----+ + + !Dist CCA !62.1!21.7!60 ! ! ! ! + +----+----+-----+------- -----+ + + !Prox ICA !365 !87.9!60 !71% !70-99% ! ! + +----+----+-----+------- -----+ + + !Dist ICA !258 !45.6!60 ! ! ! ! + +----+----+-----+------- -----+ + + !Prox ECA !96.7!11.7!60 ! ! ! ! + +----+----+-----+------- -----+ + + !Vertebral !35.9!10 !60 ! ! ! ! + +----+----+-----+------- -----+ + + !Prox Subclavian!208 ! !60 ! ! ! ! + +----+----+-----+------- -----+ + + - There is antegrade vertebral flow no magda on the left side. - Additional Measurements:ICAPSV/CCAPS V 5.88.ICAEDV/CCAEDV 5.56. Performing Organization Address [facility] Phone Number [facility], manual (04/23/2019 11:23 PM FLAT SORTING MACHINE CLERK) Pathologist Sig nature ABO Grouping O [facility] Rh Factor POS [facility] Specimen Blood Performing Organization Address [facility] Corporation[facility] Phone Number [facility] [address] [place] [address] Type and screen, automated ([facility] Lab) (04/23/2019 10:56 PM FLAT SORTING MACHINE CLERK) Pathologist Sig nature ABO/RH AUTOMATED O POSITIVE [facility] Ab Scrn NEGATIVE [facility] Specimen Blood Performing Organization Address [facility] Corporation[facility] Phone Number [facility] [address] [place], [place] [phone] CBC with platelet count + automated diff (04/23/2019 10:56 PM FLAT SORTING MACHINE CLERK) Pathologist Sig nature WBC 13.5 (H) 3.5 - 10.5 [facility] K/L [facility] RBC 4.86 3.93 - 5.22 [facility] M/L [facility] Hemoglobin 14.2 11.2 - 15.7 [facility] GM/DL [facility] Hematocrit 42.5 34.1 - 44.9 % [facility] MCV 87.4 79.4 - 94.8 fL [facility] MCH 29.2 25.6 - 32.2 pg [facility] MCHC 33.4 32.2 - 35.5 [facility] GM/DL [facility] RDW 13.2 11.7 - 14.4 % [facility] Platelets 367 150 - 450 K/CU [facility] MM [facility] MPV 10.0 9.4 - 12.3 fL [facility] nRBC 0 0 - 0 /100 WBC [facility] % Neutros 55 % [facility] % Lymphs 37 % [facility] % Monos 6 % [facility] % Eos 2 % [facility] % Baso 0 % [facility] # Neutros 7.44 (H) 1.56 - 6.13 [facility] # Lymphs 4.94 (H) 1.18 - 3.74 [facility] # Monos 0.77 (H) 0.24 - 0.36 [facility] # Eos 0.22 0.04 - 0.36 [facility] # Baso 0.05 0.01 - 0.08 [facility] Immature 0 0 - 1 % [facility] Granulocytes-[facility] Specimen Blood Performing Organization Address City/State/Zipcode Phone Number [facility] [address] [place] [address] CENTER Prothrombin time/INR (04/23/2019 10:56 PM FLAT SORTING MACHINE CLERK) Pathologist Sig nature Protime 13.3 11.9 - 14.2 seconds [facility] INR 1.1 <=5.9 [facility] Specimen Blood Narrative Performed At Effective 10/10/2018: PT Reference Range [facility] Change New: 11.9-14.2 Previous: 11.7-14.7 RECOMMENDED COUMADIN/WARFARIN INR THERAPY RANGES STANDARD DOSE: 2.0-3.0 Includes: PROPHYLAXIS for venous thrombosis, systemic embolization; TREATMENT for venous thrombosis and/or pulmonary embolus. HIGH RISK: Target INR is 2.5-3.5 for patients wiht mechanical heart valves. Prior to initiating heparin Performing Organization Address City/State/Zipcode Phone Number [facility] [address] [place] [address] [place] Hemoglobin A1c (04/23/2019 10:56 PM FLAT SORTING MACHINE CLERK) Pathologist [facility] Hemoglobin A1C 11.5 (H) 4.3 - 6.1 % [facility] Specimen Blood Performing Organization Address City/State/Zipcode Phone Number [facility] [address] [place] [address] [place] after 02/26/2019 Advance Directives For more information, please contact: [phone] Code Status Date Activated Date Inactivated Comments Full Code 04/24/2019 8:01 PM 04/28/2019 5:39 PM This code status was determined by: Patient Full Code 04/23/2019 10:04 PM 04/24/2019 8:00 PM This code status was determined by: Patient
--- OUTSIDE RECORDS SUMMARY | 2020-02-27 19:28 | XMS REPORT | Continuity of Care Document ---
:1960 Author Organization [facility] t Address [address] [place] [address] Care Team Providers Name Role Phone Pcp Primary Care Physician Unavailable Sung OLEA, Pattie Attending Clinician Unavailable MIKEY PABLO Attending Clinician Unavailable Mikey Pablo MD Attending Clinician Rick Davis MD Attending Clinician Wendy Ochoa MD Attending Clinician David BUCKNER Attending Clinician Evangelina BUCKNER, Ruth Attending Clinician RICK DAVIS Admitting Clinician Unavailable Problems Condition Condition Condition Status Onset Resolution Last Treating Co mments Source Name Details Category Date Date Treatment Clinician Date Hypertensi Hypertensi Disease Active 2018-[address] on on 06-25 - 00:00: Medical 00 Center Hyperlipid Hyperlipid Disease Active 2018-[address] emia emia 06-25 - 00:00: Medical 00 Center [place] Disease Active 2018-[address] [facility] (ventricul (ventricul 06-25 Jodie kes - ar ar 00:00: Medical tachycardi tachycardi 00 Ce nter a) a) Heart Heart Disease Active 2018-[address] [facility] block block 06-25 - 00:00: Medical 00 Center Leukocytos Leukocytos Disease Active 2018-[address] is is 06-25 - 00:00: Medical 00 Center Uncontroll Uncontroll Disease Active 2018-[address] ed ed 06-25 - diabetes diabetes 00:00: Medica l mellitus mellitus 00 Center with with hyperglyce hyperglyce braxton braxton CAD CAD Disease Active 2018-[address] [facility] [address] (coronary (coronary 2-10 [facility] - artery artery 00:00: Medical disease) disease) 00 Center Allergies, Adverse Reactions, Alerts This patient has no known allergies or adverse reactions. Family History Family Member Diagnosis Comments Start Date Stop Date Source Natural mother Coronary artery [facility] - disease Medical [place] Social History Social Habit Start Date Stop Date Quantity Comments Source History [facility] St kes - Alcohol Std Drinks Medica l Center History [facility] - Alcohol Binge Medical Raman [facility] Sex Assigned At [facility] Cigarettes smoked 2019-04-29 2019-04-[address] [facility] - current (pack per 00:00:00 00:00:00 [facility] Center day) - Reported Tobacco use and 2019-04-29 2019-04-29 Current user [facility] - exposure 00:00:00 00:00:00 [facility] Alcohol intake 2019-04-29 2019-04-29 [facility]00 non-drinker of Medical Ce nter alcohol (finding) History [facility] 2019-04-23 2019-04-[address] [facility] - Alcohol Frequency 00:00:00 00:00:00 [facility] Smoking Status Start Date Stop Date Source Current every day smoker 2019-04-29 00:00:00 [facility] Medications Ordered Filled Start Stop Current Ordering Indication Dosage Frequency Signature Comments Components Source Medication Medication Date Date Medication? Clinician (SIG) Name Name lisinopril 2018-05- No 2.5mg QD Take [address] [facility] [address] (PRINIVIL,Z 06-30 tablet [facility] - ESTRIL) 2.5 00:00: 23:59 (2.5 mg Me dical MG tablet 00 :00 total) by Cente r mouth daily for 30 days. atorvastati 2018-05- No 80mg QD Take [address] n (LIPITOR) 2-15 - tablet (80 L ukes - 80 MG 00:00: 23:59 mg total) Medica l tablet 00 :00 by mouth Center nightly for 30 days. aspirin 81 2018-05- No 81mg QD Take [address] [facility] MG chewable 2-14 03-13 tablet (81 L ukes - tablet 00:00: 23:59 mg total) Medic al 00 :00 by mouth Center daily for 90 days. clopidogrel 2018-05- No 75mg QD Take [address] [facility] [address] (PLAVIX) 75 06-28 tablet (75 L ukes - mg tablet 00:00: 23:59 mg total) Me dical 00 :00 by mouth Center daily for 30 days. metoprolol 2018-05- No 25mg QD Take [address] [facility] [address] (TOPROL-XL) 06-28 tablet (25 L ukes - 25 MG 24 hr 00:00: 23:59 mg total) Medical tablet 00 :00 by mouth Center daily for 30 days. pantoprazol 2018-05- No 40mg Take [address] [facility] e 06-28 tablet (40 [facility] - (PROTONIX) 00:00: 23:59 mg total) M edical 40 MG 00 :00 by mouth Center tablet every morning before breakfast for 30 days. mINOCYCLine 2018-05- No 100mg Take [address] (MINOCIN,DY 06-28 capsule Luke [facility] - NACIN) 100 00:00: 23:59 (100 mg Med ical MG capsule 00 :00 total) by Cent er mouth every 12 (twelve) hours for 5 days. insulin 2018-05 Yes 10U QD Inject 10 [facility] glargine 2-13 Units [facility] - (LANTUS) 00:00: subcutaneo Med ical 100 unit/mL 00 usly Center (3 mL) InPn nightly. insulin 2018-[address] lispro 2-13 meals: [facility] - (HUMALOG) 00:00: inject 1 Medi erwin 100 unit/mL 00 unit SQ if Ce nter InPn sugar >200; 2 units SQ if BG >250; 4 units SQ if BG >300; 6 units if > 350; 8 units if sugar > 400. glucometer 2018-05 Yes Use pre [facility] (FREESTYLE) 2-13 meals and Davis es - Misc 00:00: pre Medical 00 bedtime Center with strips and lancets. blood sugar 2018-05 Yes 120{str Q.25D [address] diagnostic 2-13 ip} by [facility] - (GLUCOSE 00:00: Miscellane Med ical BLOOD) Strp [address] 4 (four) times daily. lancets 2018-05 Yes Use for [facility] (LANCETS, 2-13 glucose [facility] - SUPER THIN) 00:00: check 4 Med ical Misc 00 times Center daily. miconazole 2018-05- No Q.5D Apply [facility] (MICOTIN) 2 2- 12-12 topically Jodie kes - % cream 00:00: 23:59 2 (two) Medica l 00 :00 times Center daily. HYDROcodone 2018-05- No 1{tbl} Take [address] -acetaminop -26 04- tablet by Jodie carl (NORCO 00:00: 23:59 mouth Medic al 10-325) 00 :00 every 4 Center 10-325 mg (four) per tablet hours as needed for Pain for up to 10 days. Max Daily Amount: 6 tablets atorvastati 2018-05- No 80mg QD Take [address] n (LIPITOR) 2-13 12-15 tablet (80 L ukes - 80 MG 00:00: 00:00 mg total) Medica l tablet 00 :00 by mouth Center nightly for 30 days. lisinopril 2018-05- No 10mg QD Take [address] (PRINIVIL,Z 2- 12-15 tablet (10 L ukes - ESTRIL) 10 00:00: 00:00 mg total) M edical MG tablet 00 :00 by mouth Center daily for 30 days. Vital Signs Vital Name Observation Time Observation Value Comments Source Systolic blood 2019-04-28 12:25:00 123 mm[Hg] [facility] pressure [facility] Diastolic blood 2019-04-28 12:25:00 61 mm[Hg] [facility] Heart rate 2019-04-28 12:25:00 78 /min [facility] Body temperature 2019-04-28 12:25:00 35.94 Nancy [facility] Respiratory rate 2019-04-28 12:25:00 19 /min [facility] Oxygen saturation in 2019-04-28 12:25:00 95 /min [facility] Arterial blood by Medical Ce nter Pulse oximetry Body weight 2019-04-27 08:39:00 73.6 kg [facility] BMI 2019-04-27 08:39:00 24.67 kg/m2 [facility] Body height 2019-04-24 00:00:00 172.7 cm [facility] Procedures Procedure Date / Time Performing Clinician Source Performed ARRYTHMIA IMPLANT REPORT - 2019-05-03 12:40:23 Provider, [facility] RHYTHM STRIP - SCAN 2019-05-01 11:22:36 Provider, [facility] CARDIAC CATH REPORT - SCAN 2019-04-30 14:11:52 Provider, [facility] CARDIAC CATH REPORT - SCAN 2019-04-30 14:11:50 Provider, [facility] ARRYTHMIA IMPLANT REPORT - 2019-04-30 14:11:49 Provider, [facility] RHYTHM STRIP - SCAN 2019-04-30 14:11:39 Provider, [facility] RHYTHM STRIP - SCAN 2019-04-30 09:00:48 Provider, [facility] RHYTHM STRIP - SCAN 2019-04-30 09:00:46 Provider, [facility] POCT-GLUCOSE METER 2019-04-28 12:23:00 Mendez Ochoa [facility] POCT-GLUCOSE METER 2019-04-28 08:15:00 Mendez Ochoa [facility] ECG 12-LEAD 2019-04-28 07:01:14 Unknown, Hl7 Doctor [facility] CBC (HEMOGRAM ONLY) 2019-04-28 04:46:00 Aba Bustillo [facility] BASIC METABOLIC PANEL (7) 2019-04-28 04:46:00 Aba Bustillo I [facility] MAGNESIUM 2019-04-28 04:46:00 Aba Bustillo [facility] BUN AND CREATININE W/RATIO 2019-04-28 04:46:00 Vinnie Thornton [facility] POCT-GLUCOSE METER 2019-04-27 21:50:00 [facility] 2019-04-27 16:58:00 [facility] POCT-[facility]SE METER 2019-04-27 11:51:00 Mendez Ochoa [facility] POCT-GLUCOSE METER 2019-04-27 07:52:00 Peri Davis [facility] XR CHEST 1 VIEW 2019-04-27 07:13:00 Vinnie Thornton Critical access hospital/BEDSIDE [facility] ECG 12-LEAD 2019-04-27 07:00:06 Unknown, Hl7 [facility] CBC (HEMOGRAM ONLY) 2019-04-27 05:48:00 Aba Bustillo [facility] BASIC METABOLIC PANEL (7) 2019-04-27 05:48:00 Aba Bustillo [facility] MAGNESIUM 2019-04-27 05:48:00 Aba Bustillo [facility] BUN AND CREATININE W/RATIO 2019-04-27 05:48:00 Vinnie Thornton [facility] MERRICK-65 2019-04-27 05:48:00 [facility] ISLET CELL AB SCR 2019-04-27 05:48:00 [facility] ISLET CELL AB SCREEN 2019-04-27 05:48:00 [facility] ISLET CELL AB TITER 2019-04-27 05:48:00 [facility] ECG 12-LEAD 2019-04-27 00:20:26 Unknown, Hl7 [facility] ECHOCARDIOGRAM REPORT - 2019-04-26 21:21:23 Provider, Default I [facility] POCT-GLUCOSE METER 2019-04-26 21:11:00 Peri Davis [facility] POCT-GLUCOSE METER 2019-04-26 18:02:00 Peri Davis [facility] XR CHEST 1 VIEW 2019-04-26 12:39:[address] [facility] PORTABLE/BEDSIDE [facility] ECG 12-LEAD 2019-04-26 11:37:07 Unknown, Hl7 [facility] POCT-GLUCOSE METER 2019-04-26 10:28:00 Peri Davis gracy [facility] PACEMAKER GENERATOR - 2019-04-26 07:26:[address] [facility] - INSERTION W/ EXISTING LEAD Medic al Center (SINGLE) CBC (HEMOGRAM ONLY) 2019-04-26 03:50:00 Aba Bustillo [facility] BASIC METABOLIC PANEL (7) 2019-04-26 03:49:00 Aba Bustillo CH, I [facility] MAGNESIUM 2019-04-26 03:49:00 Aba Bustillo [facility] POCT-GLUCOSE METER 2019-04-25 21:43:00 Adriana [facility] TRANSFUSION SERVICE REPORT 2019-04-25 18:03:25 ProviderReginald [facility] TROPONIN I 2019-04-25 16:14:00 Aba Bustillo [facility] POCT-GLUCOSE METER 2019-04-25 11:44:00 Adriana [facility] TROPONIN I 2019-04-25 09:11:00 Aba Bustillo [facility] CREATINE KINASE (CK) 2019-04-25 09:11:00 [facility] 12[facility]AD 2019-04-25 08:09:17 Unknown, Hl7 [facility] POCT-GLUCOSE METER 2019-04-25 08:07:00 Adriana, [facility] LIPID PANEL 2019-04-25 05:40:00 Adriana [facility] CBC (HEMOGRAM ONLY) 2019-04-25 05:40:00 Aba Bustillo [facility] BASIC METABOLIC PANEL (7) 2019-04-25 05:40:00 Aba Bustillo CH, I [facility] MAGNESIUM 2019-04-25 05:40:00 KenyAba [facility] TROPONIN I 2019-04-25 05:40:00 Keny Aba [facility] APTT 2019-04-25 05:40:00 KenyAba [facility] ECG 12-LEAD 2019-04-25 01:46:08 Unknown, Hl7 [facility] 2D ECHO W/ DOPPLER 2019-04-25 01:23:07 Lona Abrahamlake Tovar [facility] (CW/PW/COLOR) [facility] XR CHEST 1 VIEW 2019-04-25 00:16:00 [facility] PLATELET COUNT 2019-04-24 23:20:00 Keny Aba [facility] APTT 2019-04-24 23:20:00 Keny [facility] COMPREHENSIVE METABOLIC 2019-04-24 23:20:00 Keny Aba [facility] MAGNESIUM 2019-04-24 23:20:00 Keny Aba [facility] PHOSPHORUS 2019-04-24 23:20:00 Keny [facility] PT/APTT 2019-04-24 23:20:00 Keny [facility] LACTIC ACID, VENOUS 2019-04-24 23:20:00 Keny [facility] TROPONIN I 2019-04-24 23:20:00 Keny [facility] ECG 12-LEAD 2019-04-24 23:11:21 Unknown, Hl7 [facility] ECG 12-LEAD 2019-04-24 23:10:42 Unknown, Hl7 [facility] POCT-GLUCOSE METER 2019-04-24 23:10:00 Peri Davis [facility] ECG 12-LEAD 2019-04-24 23:08:09 Unknown, Hl7 [facility] ECG 12-LEAD 2019-04-24 23:07:30 Unknown, Hl7 [facility] ECG 12-LEAD 2019-04-24 23:06:59 Unknown, Hl7 Doctor [facility] ECG 12-LEAD 2019-04-24 23:06:38 Unknown, Hl7 Doctor [facility] ECG 12-LEAD 2019-04-24 23:02:29 Unknown, Hl7 Doctor [facility] ECG 12-LEAD 2019-04-24 22:52:51 Unknown, Hl7 [facility] PERIPHERAL VASCULAR REPORT 2019-04-24 21:20:18 Provider, Default [facility] - - SCAN [facility] ECG 12-LEAD 2019-04-24 21:09:17 Unknown, Hl7 [facility] POCT-ACT 2019-04-24 18:33:00 Adriana, [facility] 2019-04-24 18:00:58 Provider, Default [facility] - - SCAN [facility] POCT-ACT 2019-04-24 17:56:00 Adriana Peri gracy [facility] POCT-ACT 2019-04-24 17:42:00 Adriana [facility] L HEART CATH ONLY - NO 2019-04-24 16:30:00 Dain Hutchinson [facility] ANGIOS [facility] IMPELLA PERC LVAD [facility] - 2019-04-24 16:30:00 Dain Hutchinson [facility] - IP PROC ONLY Medical Center POCT-GLUCOSE METER 2019-04-24 13:06:00 Peri Davis Nehemiahmykepattie [facility] APTT 2019-04-24 12:11:00 Steven Sultana [facility] POCT-GLUCOSE METER 2019-04-24 09:48:00 Peri Davis Nehemiahmykepattie [facility] APTT 2019-04-24 05:53:00 Steven Sultana [facility] CAROTID DOPPLER BILATERAL 2019-04-24 05:40:00 Steven Sultana [facility] ECG 12-LEAD 2019-04-23 23:47:13 Unknown, Hl7 Doctor [facility] ECG 12-LEAD 2019-04-23 23:46:55 Unknown, Hl7 Doctor [facility] ABORH, MANUAL 2019-04-23 23:23:00 Stacey Mitchell [facility] BASIC METABOLIC PANEL (7) 2019-04-23 22:56:00 [place] [facility] HEMOGLOBIN A1C 2019-04-23 22:56:00 [place] [facility] APTT 2019-04-23 22:56:00 [place] [facility] PROTHROMBIN TIME/INR 2019-04-23 22:56:00 [facility] TYPE AND SCREEN, AUTOMATED 2019-04-23 22:56:00 Carmen Zamorano [facility] CBC W/PLT COUNT & AUTO 2019-04-23 22:56:00 [facility] POCT-GLUCOSE METER 2019-04-23 22:47:00 Dayrl Pablo [facility] Results Test Description Test Time Test Comments Results Result Comments Source Islet Cell AB Screen 2019-05-06 07:43:00 Test Item Value Reference Range Interpretation Comme nts Islet Cell Ab Profile (test code = Refer to individual Islet Cell A b and/or 2556) Islet Cell Ab Titer results. [facility] [id number] 07:43:00 Test Item Value Reference Range Interpretation Comments ISLET CELL AB Refer to individual AUTOVERIFICATION (test Islet Cell Ab code = 2556) and/or Islet Cell Ab Titer results. [id number] 10:16:00 Test Item Value Reference Range Interpretation Comments MERRICK-65 <5 <5 IU/mL This test was performed (test code using the GAD65 TAWNYA = 3214) method which is standardizedaga inst the International r eference preparation 97/ 550. FADI (test Performing Lab code = FADI) [facility] [address] [place] [address] Irlanda Ocampo MD, PhD, ANISH [facility] Center[facility] Ab [id number] 01:23:00 Test Item Value Reference Range Interpretation Comments Islet Cell NEGATIVE NEGATIVE This test was developed Ab (test and its analyti erwin code = performance 0933878) characteristics havebeen determined by [facility].It h as not been cleared or approved by FDA. This as say has been validatedp ursuant to the CLIA reg ulations and is used for clinical purposes. FADI (test Performing Lab code = FADI) [facility] [address] [place] [address] Irlanda Ocampo MD, PhD, ANISH [facility] Center[facility] Ab [id number] 01:23:00 Test Item Value Reference Range Interpretation Comments Islet Cell TNP LESS THAN 1.25 Test Not Perf ormed. Ab Titer JDF units Screening test Negative (test code = or Not Detected . Titer 51126-7) notperformed. N OTE: End point titers ar e compared to a s gloria international referencestanda rd and values are repo rted in JDF (Juvenile D iabetes Foundation) uni ts. FADI (test Performing Lab code = FADI) [facility] [address] [place] [address] Irlanda Ocampo MD, PhD, ANISHCommunity Hospital of GardenaECG [id number] 14:36:48Interface, External Ris In - 04/28/2019 2:36 PM CSTVentricular Rate 75 BPMAtrial Rate 75 BPMP-R Interval 150 msQRS Duration 142 msQ-T Interval 416 msQTC Calculation(Bazett) 464 msP Patriot 54 degreesR Patriot -44 degreesT Patriot 108 degreesNormal sinus rhythmLeft axis deviationLeft bundle branch blockAbnormal ECGWhen compared with ECG of 27-APR-2019 07:00,QRS axis Shifted leftConfirmed by MD ALICIA, SAVITA([id number]) on 04/28/2019 2:36:47 [facility] [id number] 12:34:00 Test Item Value Reference Range Interpretation Comments POC-Glucose Meter (test 208 mg/dL 70-110 H : TE STED AT [facility] code = 1538) [address] [facility], [address]: [place]angel[place] Management Specialist/Techni john ID = [id number] for MARY MORRIS Lab Interpretation (test Abnormal code = 88909-1) [facility] [id number] 12:34:00 Test Item Value Reference Range Interpretation Comments POC-GLUCOSE METER 208 mg/dL 70-110 H : TESTED A T [facility] 6720 (BEAKER) (test code = [facility] Ruth [facility], 1538) [address]: [employer] Management Specialist/Techni john ID = [id number] for Guy MORRIS POCT-GLUCOSE [id number] 08:26:00 Test Item Value Reference Range Interpretation Comments POC-GLUCOSE METER 145 mg/dL 70-110 H : TESTED A T [facility] 6720 (BEAKER) (test code = [facility] Ruth [facility], 1538) [address]: [employer] Management Specialist/Techni john ID = [id number] for HILARY ALBARRAN Basic Metabolic [id number] 06:31:00 Test Item Value Reference Range Interpretation Comments Sodium (test code = 137 meq/L 854-143 9024-2) Potassium (test code = 3.5 meq/L 3.5-5.1 2823-3) Chloride (test code = 105 meq/L 98-107 2075-0) CO2 (test code = 27 meq/L 22-29 2028-9) BUN (test code = 12 mg/dL 7-21 3094-0) Creatinine (test code = 0.61 mg/dL 0.57-1.25 2160-0) Glucose (test code = 128 mg/dL 70-105 H 2345-7) Calcium (test code = 8.1 mg/dL 8.4-10.2 L 28687-3) EGFR (test code = 101 mL/min/1.73 [place] [address]-7) NOT ACCURATE CREATININE CLEARANCE IN PREDICTING GLOMERULAR FILTRATION RATE . ESTIMATED GFR I S NOT APPLICABLE FOR DIALYSIS PATIEN TS. Lab Interpretation Abnormal (test code = 76926-0) [facility] CenterMagnesium2019-12-15 06:31:00 Test Item Value Reference Range Interpretation Comments Magnesium (test code = 62789-5) 1.6 mg/dL 1.6-2.6 Lab Interpretation (test code = Normal 27066-6) [facility] CenterBUN and [id number] 06:31:00 Test Item Value Reference Range Interpretation Comments BUN (test code = 12 mg/dL 7-21 3094-0) Creatinine (test code 0.61 mg/dL 0.57-1.25 = 2160-0) EGFR (test code = 101 mL/min/1.73 [place] [address]-4) ACCURATE CREATININE DAVID AIME IN PREDICTING GLOMERULAR FILT RATION RATE. ESTIMATED GFR IS NOT APPLICAB LE FOR DIALYSIS PATIEN TS. [facility] CenterMAGNESIUM2019-12-15 06:31:00 Test Item Value Reference Range Interpretation Comments MAGNESIUM (BEAKER) (test code = 1.6 mg/dL 1.6-2.6 627) BUN AND [id number] 06:31:00 Test Item Value Reference Range Interpretation Comments BLOOD UREA NITROGEN 12 mg/dL 7-21 (BEAKER) (test code = 354) CREATININE (BEAKER) 0.61 mg/dL 0.57-1.25 (test code = 358) EGFR (BEAKER) (test 101 mL/min/1.73 ESTIM ATED GFR IS code = 1092) sq m NOT ACCURATE CREATININE CLEARANCE IN PREDICTING GLOMERULAR FILTRATION RATE . ESTIMATED GFR I S NOT APPLICABLE FOR DIALYSIS PATIEN TS. BASIC METABOLIC [id number] 06:31:00 Test Item Value Reference Range Interpretation Comments SODIUM (BEAKER) 137 meq/L 136-145 (test code = 381) POTASSIUM (BEAKER) 3.5 meq/L 3.5-5.1 (test code = 379) CHLORIDE (BEAKER) 105 meq/L 98-107 (test code = 382) CO2 (BEAKER) (test 27 meq/L 22-29 code = 355) BLOOD UREA NITROGEN 12 mg/dL 7-21 (BEAKER) (test code = 354) CREATININE (BEAKER) 0.61 mg/dL 0.57-1.25 (test code = 358) GLUCOSE RANDOM 128 mg/dL 70-105 H (BEAKER) (test code = 652) CALCIUM (BEAKER) 8.1 mg/dL 8.4-10.2 L (test code = 697) EGFR (BEAKER) (test 101 mL/min/1.73 ESTIM ATED GFR IS code = 1092) sq m NOT ACCURATE CREATININE CLEARANCE IN PREDICTING GLOMERULAR FILTRATION RATE . ESTIMATED GFR I S NOT APPLICABLE FOR DIALYSIS PATIEN TS. CBC (Hemogram only)2019-04-28 05:33:00 Test Item Value Reference Range Interpretation Comments WBC (test code = 6690-2) 13.4 3.5- 10.5 K/L H RBC (test code = 789-8) 3.66 3.93- 5.22 M/L L MCHC (test code = 786-4) 32.2 32.2- 35.5 GM/DL L Hematocrit (test code = 4544-3) 32.9 % 34.1-44.9 L MCV (test code = 787-2) 89.9 fL 79.4-94.8 MCH (test code = 785-6) 29.0 pg 25.6-32.2 RDW (test code = 788-0) 13.5 % 11.7-14.4 Platelets (test code = 777-3) 319 150- 450 K/CU MM MPV (test code = 42613-1) 9.9 fL 9.4-12.3 nRBC (test code = 413) 0 0- 0 /100 WBC Lab Interpretation (test code = Abnormal 26184-0) [facility]2019-04-28 05:33:00 Test Item Value Reference Range Interpretation Comments WHITE BLOOD CELL COUNT (BEAKER) 13.4 K/ L 3.5-10.5 H (test code = 775) RED BLOOD CELL COUNT (BEAKER) 3.66 M/ L 3.93-5.22 L (test code = 761) HEMOGLOBIN (BEAKER) (test code = 10.6 GM/DL 11.2-15.7 L 410) HEMATOCRIT (BEAKER) (test code = 32.9 % 34.1-44.9 L 411) MEAN CORPUSCULAR VOLUME (BEAKER) 89.9 fL 79.4-94.8 (test code = 753) MEAN CORPUSCULAR HEMOGLOBIN 29.0 pg 25.6-32.2 (BEAKER) (test code = 751) MEAN CORPUSCULAR HEMOGLOBIN CONC 32.2 GM/DL 32.2-35.5 (BEAKER) (test code = 752) RED CELL DISTRIBUTION WIDTH 13.5 % 11.7-14.4 (BEAKER) (test code = 412) PLATELET COUNT (BEAKER) (test 319 K/CU MM 150-450 code = 756) MEAN PLATELET VOLUME (BEAKER) 9.9 fL 9.4-12.3 (test code = 754) NUCLEATED RED BLOOD CELLS 0 /100 WBC 0-0 (BEAKER) (test code = 413) POCT-GLUCOSE [id number] 22:02:00 Test Item Value Reference Range Interpretation Comments POC-GLUCOSE METER 214 mg/dL 70-110 H : TESTED A T [facility] 6720 (BEAKER) (test code = [facility], 1538) [id number]: [employer] Management Specialist/Techni john ID = [id number] for LAITH NOVOA KAREN POCT-GLUCOSE [id number] 17:34:00 Test Item Value Reference Range Interpretation Comments POC-GLUCOSE METER 178 mg/dL 70-110 H : TESTED A T [facility] 6720 (BEAKER) (test code = [facility], 1538) [address]: [employer] Management Specialist/Techni john ID = [id number] for Guy MORRIS POCT-GLUCOSE [id number] 17:33:00 Test Item Value Reference Range Interpretation Comments POC-GLUCOSE METER 222 mg/dL 70-110 H : TESTED A T [facility] 6720 (BEAKER) (test code = [facility], 1538) [address]: [employer] Specialist/Techni john ID = [id number] for RIGOBERTO LLCHELLY, ASPENKA POCT-GLUCOSE [id number] 08:07:00 Test Item Value Reference Range Interpretation Comments POC-GLUCOSE METER 174 mg/dL 70-110 H : TESTED A T [facility] 6720 (BEAKER) (test code = [facility], 1538) [address]: [employer] Management Specialist/Techni john ID = [id number] for [place] LLIAMS, TYNEKA RAD, CHEST, 1 VIEW, NON [id number] 08:04:00Reason for exam:->CIED ImplantationIs the patient ?->UnknownShould [...] Signed: Cindy Lee MDReport Verified Date/Time: 04/27/2019 08:04:20 Reading Location: [facility] C013 Neuro Reading Room XR chest 1 view portable / bedside 2019-04-27 08:04:00Interface, External Ris In - 04/27/2019 8:06 AM CSTFINAL REPORT CLINICAL HISTORY: CIED Implantation TECHNIQUE: 1 view of the chest. COMPARISON: 04/26/2019 IMPRESSION: A left chest wall dual- lead pacemaker is again seen without evidence for pneumothorax. Pulmonary vascular congestive findings appear increased. Small bilateral pleural effusions appear increased. The cardiomediastinal silhouette is magnified by technique. A dextroscoliosis of the thoracic spine is unchanged. Signed: Cindy Lee Verified Date/Time: 04/27/2019 08:04:20 Reading Location: [facility] C013 Neuro [facility] 06:48:00 Test Item Value Reference Range Interpretation Comments MAGNESIUM (BEAKER) (test code = 1.7 mg/dL 1.6-2.6 627) BUN AND [id number] 06:48:00 Test Item Value Reference Range Interpretation Comments BLOOD UREA NITROGEN 11 mg/dL 7-21 (BEAKER) (test code = 354) CREATININE (BEAKER) 0.67 mg/dL 0.57-1.25 (test code = 358) EGFR (BEAKER) (test 91 mL/min/1.73 ESTIMA DARIELA GFR IS code = 1092) sq m NOT ACCURATE CREATININE CLEARANCE IN PREDICTING GLOMERULAR FILTRATION RATE . ESTIMATED GFR I S NOT APPLICABLE FOR DIALYSIS PATIEN TS. BASIC METABOLIC [id number] 06:48:00 Test Item Value Reference Range Interpretation Comments SODIUM (BEAKER) 138 meq/L 136-145 (test code = 381) POTASSIUM (BEAKER) 4.0 meq/L 3.5-5.1 (test code = 379) CHLORIDE (BEAKER) 105 meq/L 98-107 (test code = 382) CO2 (BEAKER) (test 28 meq/L 22-29 code = 355) BLOOD UREA NITROGEN 11 mg/dL 7-21 (BEAKER) (test code = 354) CREATININE (BEAKER) 0.67 mg/dL 0.57-1.25 (test code = 358) GLUCOSE RANDOM 184 mg/dL 70-105 H (BEAKER) (test code = 652) CALCIUM (BEAKER) 8.6 mg/dL 8.4-10.2 (test code = 697) EGFR (BEAKER) (test 91 mL/min/1.73 ESTIMA DARIELA GFR IS code = 1092) sq m NOT ACCURATE CREATININE CLEARANCE IN PREDICTING GLOMERULAR FILTRATION RATE . ESTIMATED GFR I S NOT APPLICABLE FOR DIALYSIS PATIEN TS. CBC (HEMOGRAM ONLY)2019-04-27 06:25:00 Test Item Value Reference Range Interpretation Comments WHITE BLOOD CELL COUNT (BEAKER) 13.2 K/ L 3.5-10.5 H (test code = 775) RED BLOOD CELL COUNT (BEAKER) 4.10 M/ L 3.93-5.22 (test code = 761) HEMOGLOBIN (BEAKER) (test code = 12.0 GM/DL 11.2-15.7 410) HEMATOCRIT (BEAKER) (test code = 37.0 % 34.1-44.9 411) MEAN CORPUSCULAR VOLUME (BEAKER) 90.2 fL 79.4-94.8 (test code = 753) MEAN CORPUSCULAR HEMOGLOBIN 29.3 pg 25.6-32.2 (BEAKER) (test code = 751) MEAN CORPUSCULAR HEMOGLOBIN CONC 32.4 GM/DL 32.2-35.5 (BEAKER) (test code = 752) RED CELL DISTRIBUTION WIDTH 13.7 % 11.7-14.4 (BEAKER) (test code = 412) PLATELET COUNT (BEAKER) (test 321 K/CU MM 150-450 code = 756) MEAN PLATELET VOLUME (AKER) 10.3 fL 9.4-12.3 (test code = 754) NUCLEATED RED BLOOD CELLS 0 /100 WBC 0-0 (AKER) (test code = 413) POCT-GLUCOSE [id number] 21:23:00 Test Item Value Reference Range Interpretation Comments POC-GLUCOSE METER 209 mg/dL 70-110 H : TESTED A T [facility] 6720 ([facility]) (test code = [facility], 1538) [id number]: [employer]angel[employer] Management Specialist/Techni john ID = [id number] for KAREN TEIXEIRA POCT-GLUCOSE [id number] 18:13:00 Test Item Value Reference Range Interpretation Comments POC-GLUCOSE METER 280 mg/dL 70-110 H : TESTED A T [facility] 6720 ([facility]) (test code [facility], = 1538) [id number]: [employer]angel[employer] Management Specialist/Techni john ID = [id number] for GEOFF SEVERINO RAD, CHEST, 1 VIEW, NON [id number] 14:36:00Reason for exam:->CIED ImplantationShould this be performed at the bedside?->YesFINAL REPORT INDICATION: CIED Implantation COMPARISON: None TECHNIQUE: Single frontal view of the chest. FINDINGS: Lungs and pleura: Lungs are hypoinflated. No effusion.Heart andmediastinum: Normal heart size. Unremarkable mediastinal contours.Osseous structures: No acute abnormality.Other: Pacer device. IMPRESSION: No pneumothorax Signed: Rowena Lay Verified Date/Time: 04/26/2019 14:36:47 Reading Location: [facility] Radiology Reading Room -GLUCOSE [id number] 10:40:00 Test Item Value Reference Range Interpretation Comments POC-GLUCOSE METER 204 mg/dL 70-110 H : TESTED A T [facility] 6720 (BEAKER) (test code = [facility], 1538) [id number]: [employer]angel[employer] Management Specialist/Techni john ID = [id number] for JOURDAN ESCALANTE 2D Echo W/Doppler(CW/PW/Color)2019-04-26 09:09:36Ejection FractionSLEH ECHO HEARTLAB MKCKESSON CPACSInterface, External Ris In - 04/26/2019 9:09 AM C STTransthoracic Echocardiography Report (TTE) Demographics Patient Name CHRISSIE MUÑOZ Date ofStudy 04/25/2019 Gender Female Visit Number [id number] Race Unknown Room Number C827 Number Date of 1960 Referring Lona Tovar Physician Age 59 year(s) 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 Normal LV size and function.LVEF is > 60% 2. Diastology: Grade 1 diastolic dysfunction 3. Normal RV size and function 4. No significant valvular heart disease 5. Unable to estimate PASP 6. No pericardial effusion Previous Study No prior exam available for comparison. Signature Findings Left Ventricle The left ventricle is chamber size (by PSLAX dimension) is normal (female - LVIDd 3.8-5.2cm) . Normal LV wall thickness. Septal motion is abnormal, likely related toconduction abnormality . The other segments contract normally. Global LV systolic function normal . LVEF by Brown's method of diskassessment is normal (>60%) . The LVEF was measuredusing Brown's bi-plane method of disk . Grade 1 diastolic dysfunction (impaired relaxation and low-normal LA pressure). Left Atrium LA size is normal (16-34 ml/m2) . Right Ventricle The right ventricular chambersize and systolic function are within normal limits. [...] diameter) is normal . Pericardium No significant pericardial effusion is visualiz ed. IVC/SVC/PA/PV/Pleural The estimated RA pressure by IVC dynamics 5-10mmHg . Chambers/Structures Left Atrium LA Volume: 47.64 ml LA Area: 17.18 cm^2 LA Vol. Index: 25 ml/m^2 Left Ventricle LVIDd: 4.19 cm LV Septum Diastolic: 0.89 cm LV PW Diastolic: 0.92 cm LVEDV Brown's:59.55 ml LVESV Brown's:22.69 ml LVEF Brown's: 61.9 % LVEDVI: 32 ml/m^2 LVESVI: 12 ml/m^2 LVOT Diameter: 1.97 cmAorta Ao [place].: 2.7 cm [...] mmHg Mean Gradient: 2.8 mmHg AV Area (continuit y): 2.64 cm^2 AV VTI: 26.24 cm AV DVI: 0.87 LVOT Peak Velocity: 1.19 m/s Peak Gradient: 5.63 mmHg Mean Velocity: 0.74 m/s Mean Gradient: 2.7 mmHg LVOT Diameter: 1.97 cm LVOT VTI: 22.78 cm LVOT Area: 3.05 cm^2 LVOT SV:69.4 ml LVOT CO: 4.03 l/min LVOT CI: 2.16 l/min/m^2[facility]2019-[facility]-13 04:42:00 Test Item Value Reference Range Interpretation Comments MAGNESIUM (BEAKER) (test code = 1.8 mg/dL 1.6-2.6 627) BASIC METABOLIC [id number] 04:42:00 Test Item Value Reference Range Interpretation Comments SODIUM (BEAKER) 135 meq/L 136-145 L (test code = 381) POTASSIUM (BEAKER) 3.4 meq/L 3.5-5.1 L (test code = 379) CHLORIDE (BEAKER) 106 meq/L 98-107 (test code = 382) CO2 (BEAKER) (test 22 meq/L 22-29 code = 355) BLOOD UREA NITROGEN 8 mg/dL 7-21 (BEAKER) (test code = 354) CREATININE (BEAKER) 0.66 mg/dL 0.57-1.25 (test code = 358) GLUCOSE RANDOM 242 mg/dL 70-105 H (BEAKER) (test code = 652) CALCIUM (BEAKER) 8.4 mg/dL 8.4-10.2 (test code = 697) EGFR (BEAKER) (test 92 mL/min/1.73 ESTIMA DARIELA GFR IS code = 1092) sq m NOT ACCURATE CREATININE CLEARANCE IN PREDICTING GLOMERULAR FILTRATION RATE . ESTIMATED GFR I S NOT APPLICABLE FOR DIALYSIS PATIEN TS. CBC (HEMOGRAM ONLY)2019-04-26 04:18:00 Test Item Value Reference Range Interpretation Comments WHITE BLOOD CELL COUNT (BEAKER) 14.7 K/ L 3.5-10.5 H (test code = 775) RED BLOOD CELL COUNT (BEAKER) 4.67 M/ L 3.93-5.22 (test code = 761) HEMOGLOBIN (BEAKER) (test code = 13.5 GM/DL 11.2-15.7 410) HEMATOCRIT (BEAKER) (test code = 41.4 % 34.1-44.9 411) MEAN CORPUSCULAR VOLUME (BEAKER) 88.7 fL 79.4-94.8 (test code = 753) MEAN CORPUSCULAR HEMOGLOBIN 28.9 pg 25.6-32.2 (BEAKER) (test code = 751) MEAN CORPUSCULAR HEMOGLOBIN CONC 32.6 GM/DL 32.2-35.5 (BEAKER) (test code = 752) RED CELL DISTRIBUTION WIDTH 13.4 % 11.7-14.4 (BEAKER) (test code = 412) PLATELET COUNT (BEAKER) (test 330 K/CU MM 150-450 code = 756) MEAN PLATELET VOLUME (BEAKER) 10.2 fL 9.4-12.3 (test code = 754) NUCLEATED RED BLOOD CELLS 0 /100 WBC 0-0 (BEAKER) (test code = 413) POCT-GLUCOSE [id number] 21:56:00 Test Item Value Reference Range Interpretation Comments POC-GLUCOSE METER 381 mg/dL 70-110 H : Notified RN/MD: (BEAKER) (test code = TESTED AT [facility] 6737 1538) [facility], [address]: Rangeland Management Specialist/Techni john ID = [id number] for SONIA MAHER Troponin [id number] 17:20:00 Test Item Value Reference Range Interpretation Comments Troponin I (test code = 0.12 ng/mL 0-0.03 H 08563-8) FADI (test code = FADI) Troponin I (TnI) levels must be interpreted [...] acidosis, acute neurological disease, and persistent tachyarrhythmia. Lab Interpretation (test Abnormal code = 30005-6) [facility] [id number] 17:20:00 Test Item Value Reference Range Interpretation Comments TROPONIN I (BEAKER) (test code = 0.12 ng/mL 0.00-0.03 H 397) Troponin I (TnI) levels must be interpreted [...] acidosis, acute neurological disease, and persistent tachyarrhythmia.POCT-GLUCOSE [id number] 11:55:00 Test Item Value Reference Range Interpretation Comments POC-GLUCOSE METER 163 mg/dL 70-110 H : TESTED A T [facility] 6720 (BEAKER) (test code = [employer] [facility], 1538) [address]: Rangeland Management Specialist/Techni john ID = [id number] for TELMA MARIN Creatine Kinase (CK)2019-04-25 11:26:00 Test Item Value Reference Range Interpretation Comments Total CK (test code = 2157-6) 63 U/L 29-200 Lab Interpretation (test code = Normal 73196-9) [facility] ([facility])2019-04-25 11:26:00 Test Item Value Reference Range Interpretation Comments CREATINE KINASE TOTAL (BEAKER) (test 63 U/L 29-200 code = 380) TROPONIN [id number] 10:05:00 Test Item Value Reference Range Interpretation Comments TROPONIN I (BEAKER) (test code = 0.18 ng/mL 0.00-0.03 H 397) Troponin I (TnI) levels must be interpreted [...] acidosis, acute neurological disease, and persistent tachyarrhythmia.POCT-GLUCOSE [id number] 08:18:00 Test Item Value Reference Range Interpretation Comments POC-GLUCOSE METER 163 mg/dL 70-110 H : TESTED A T [facility] 6720 (BEAKER) (test code = [employer] [place], 1538) [address]: Rangeland Management Specialist/Techni john ID = [id number] for TELMA MARIN TROPONIN [id number] 06:47:00 Test Item Value Reference Range Interpretation Comments TROPONIN I (BEAKER) (test code = 0.23 ng/mL 0.00-0.03 397) Troponin I (TnI) levels must be interpreted [...] failure, acidosis, acute neurological disease, and persistent tachyarrhythmia.Lipid [id number] 06:41:00 Test Item Value Reference Range Interpretation Comments Triglycerides (test 117 mg/dL Specimen code = 2571-8) slightly hemolyzed Cholesterol (test 122 mg/dL Specimen code = 2093-3) slightly hemolyzed HDL (test code = 36 mg/dL 5-9) LDL Calculated (test 63 mg/dL code = 67792-2) FADI (test code = Triglyceride FADI) Reference Range: Low Risk <150 Borderline 150-199 High Risk 200-499 Very High Risk >=500 Cholesterol Reference Range: Low Risk <200 Borderline 200-239 High Risk >240 HDL Cholesterol Reference Range: Low Risk >=60 High Risk <40 LDL Cholesterol Reference Range: Optimal <100 Near Optimal 100-129 Borderline 130-159 High 160-189 Very High >=190 [facility]2019-[facility]-12 06:41:00 Test Item Value Reference Range Interpretation Comments MAGNESIUM (BEAKER) 2.4 mg/dL 1.6-2.6 Specimen slightly (test code = 627) hemolyzed BASIC METABOLIC [id number] 06:41:00 Test Item Value Reference Range Interpretation Comments SODIUM (BEAKER) 135 meq/L 136-145 L (test code = 381) POTASSIUM (BEAKER) 3.8 meq/L 3.5-5.1 Specimen slightly (test code = 379) hemolyzed CHLORIDE (BEAKER) 105 meq/L 98-107 (test code = 382) CO2 (BEAKER) (test 23 meq/L 22-29 code = 355) BLOOD UREA NITROGEN 11 mg/dL 7-21 (BEAKER) (test code = 354) CREATININE (BEAKER) 0.60 mg/dL 0.57-1.25 Specimen slightly (test code = 358) hemolyzed GLUCOSE RANDOM 157 mg/dL 70-105 H (BEAKER) (test code = 652) CALCIUM (BEAKER) 8.0 mg/dL 8.4-10.2 L (test code = 697) EGFR (BEAKER) (test 103 mL/min/1.73 ESTIM ATED GFR IS code = 1092) sq m NOT ACCURATE CREATININE CLEARANCE IN PREDICTING GLOMERULAR FILTRATION RATE . ESTIMATED GFR I S NOT APPLICABLE FOR DIALYSIS PATIEN TS. LIPID [id number] 06:41:00 Test Item Value Reference Range Interpretation Comments TRIGLYCERIDES (BEAKER) 117 mg/dL Speci men slightly (test code = 540) hemolyzed CHOLESTEROL (BEAKER) 122 mg/dL Specime n slightly (test code = 631) hemolyzed HDL CHOLESTEROL (BEAKER) 36 mg/dL (test code = 976) LDL CHOLESTEROL 63 mg/dL CALCULATED (BEAKER) (test code = 633) Triglyceride Reference Range: Low Risk <150 Borderline 150-199 High Risk 200-499 Very High Risk >=500Cholesterol Reference Range: Low Risk <200 Borderline 200-239 High Risk >240HDL Cholesterol Reference Range: Low Risk >=60 High Risk <40LDL Cholesterol Reference Range: Optimal <100 Near Optimal 100-129 Borderline 130-159 High 160-189 Very High >=[id number] 06:07:00 Test Item Value Reference Range Interpretation Comments PTT (test code = 74527-8) 45.1 22.5- 36.0 seconds H Lab Interpretation (test code = Abnormal 89380-1) [facility] 06:07:00 Test Item Value Reference Range Interpretation Comments PARTIAL THROMBOPLASTIN TIME 45.1 seconds 22.5-36.0 H (BEAKER) (test code = 760) CBC (HEMOGRAM ONLY)2019-04-25 06:02:00 Test Item Value Reference Range Interpretation Comments WHITE BLOOD CELL COUNT (BEAKER) 16.7 K/ L 3.5-10.5 H (test code = 775) RED BLOOD CELL COUNT (BEAKER) 4.38 M/ L 3.93-5.22 (test code = 761) HEMOGLOBIN (BEAKER) (test code = 12.7 GM/DL 11.2-15.7 410) HEMATOCRIT (BEAKER) (test code = 38.7 % 34.1-44.9 411) MEAN CORPUSCULAR VOLUME (BEAKER) 88.4 fL 79.4-94.8 (test code = 753) MEAN CORPUSCULAR HEMOGLOBIN 29.0 pg 25.6-32.2 (BEAKER) (test code = 751) MEAN CORPUSCULAR HEMOGLOBIN CONC 32.8 GM/DL 32.2-35.5 (BEAKER) (test code = 752) RED CELL DISTRIBUTION WIDTH 13.2 % 11.7-14.4 (BEAKER) (test code = 412) PLATELET COUNT (BEAKER) (test 325 K/CU MM 150-450 code = 756) MEAN PLATELET VOLUME (BEAKER) 10.1 fL 9.4-12.3 (test code = 754) NUCLEATED RED BLOOD CELLS 0 /100 WBC 0-0 (BEAKER) (test code = 413) RAD, CHEST, 1 VIEW, NON [id number] 01:00:00Reason for exam:->transvenous PM placementShould this be [...] normal limits. Additional findings: None available. Signed: Lucy Cameron MDRepannette Verified Date/Time: 04/25/2019 01:00:56 TROPONIN [id number] 23:56:00 Test Item Value Reference Range Interpretation Comments TROPONIN I (BEAKER) (test code = 0.39 ng/mL 0.00-0.03 397) Troponin I (TnI) levels must be interpreted [...] failure, acidosis, acute neurological disease, and persistent tachyarrhythmia.Comprehensive metabolic [id number] 23:47:00 Test Item Value Reference Range Interpretation Comments Protein, Total (test 6.5 6.0- 8.3 gm/dL Speci men slightly code = 2885-2) hemolyzed Albumin (test code = 3.4 g/dL 3.5-5 L Specime n slightly 25283-6) hemolyzed Alkaline Phosphatase 146 U/L 40-150 (test code = 6768-6) Total Bilirubin (test 0.5 mg/dL 0.2-1.2 Specim en slightly code = 1975-2) hemolyzed Sodium (test code = 134 meq/L 136-145 L 2951-2) Potassium (test code = 4.0 meq/L 3.5-5.1 Speci men slightly 2823-3) hemolyzed Chloride (test code = 106 meq/L 98-107 2075-0) CO2 (test code = 18 meq/L 22-29 L 2028-9) BUN (test code = 13 mg/dL 7-21 3094-0) Creatinine (test code = 0.69 mg/dL 0.57-1.25 Spec imen slightly 2160-0) hemolyzed Glucose (test code = 249 mg/dL 70-105 H 2345-7) Calcium (test code = 8.5 mg/dL 8.4-10.2 78872-1) AST (test code = 27 U/L 5-34 Specimen sl ightly 1920-8) hemolyzed ALT (test code = 30 U/L 6-55 Specimen sl ightly 1742-6) hemolyzed EGFR (test code = 88 mL/min/1.73 [place] [address]-7) NOT ACCURATE CREATININE CLEARANCE IN PREDICTING GLOMERULAR FILTRATION RATE . ESTIMATED GFR I S NOT APPLICABLE FOR DIALYSIS PATIEN TS. Lab Interpretation Abnormal (test code = 32611-3) [facility] Center[facility]osphorus2019-[facility] 23:47:00 Test Item Value Reference Range Interpretation Comments Phosphorus (test code = 3.2 mg/dL 2.3-4.7 Spec imen slightly 2777-1) hemolyzed Lab Interpretation (test Normal code = 85622-8) [facility]2019-12-11 23:47:00 Test Item Value Reference Range Interpretation Comments MAGNESIUM (BEAKER) 1.6 mg/dL 1.6-2.6 Specimen slightly (test code = 627) hemolyzed [id number] 23:47:00 Test Item Value Reference Range Interpretation Comments PHOSPHORUS (BEAKER) 3.2 mg/dL 2.3-4.7 Specimen slightly (test code = 604) hemolyzed COMPREHENSIVE METABOLIC [id number] 23:47:00 Test Item Value Reference Range Interpretation Comments TOTAL PROTEIN 6.5 gm/dL 6.0-8.3 Specimen sligh tly (BEAKER) (test code = hemoly zed 770) ALBUMIN (BEAKER) 3.4 g/dL 3.5-5.0 L Specimen sl ightly (test code = 1145) hemolyzed ALKALINE PHOSPHATASE 146 U/L 40-150 (BEAKER) (test code = 346) BILIRUBIN TOTAL 0.5 mg/dL 0.2-1.2 Specimen sli ghtly (BEAKER) (test code = hemoly zed 377) SODIUM (BEAKER) (test 134 meq/L 136-145 L code = 381) POTASSIUM (BEAKER) 4.0 meq/L 3.5-5.1 Specimen slightly (test code = 379) hemolyzed CHLORIDE (BEAKER) 106 meq/L 98-107 (test code = 382) CO2 (BEAKER) (test 18 meq/L 22-29 L code = 355) BLOOD UREA NITROGEN 13 mg/dL 7-21 (BEAKER) (test code = 354) CREATININE (BEAKER) 0.69 mg/dL 0.57-1.25 Specimen slightly (test code = 358) hemolyzed GLUCOSE RANDOM 249 mg/dL 70-105 H (BEAKER) (test code = 652) CALCIUM (BEAKER) 8.5 mg/dL 8.4-10.2 (test code = 697) AST (SGOT) (BEAKER) 27 U/L 5-34 Specimen slightly (test code = 353) hemolyzed ALT (SGPT) (BEAKER) 30 U/L 6-55 Specimen slightly (test code = 347) hemolyzed EGFR (BEAKER) (test 88 mL/min/1.73 ESTIMA DARIELA GFR IS code = 1092) sq m NOT ACCURATE CREATININE CLEARANCE IN PREDICTING GLOMERULAR FILTRATION RATE . ESTIMATED GFR I S NOT APPLICABLE FOR DIALYSIS PATIEN TS. Lactic acid, [id number] 23:41:00 Test Item Value Reference Range Interpretation Comments Lactate, Venous (test 1.1 mmol/L 0.5-2.2 Specim en slightly code = 2872) hemolyzed Lab Interpretation (test Normal code = 12569-4) [facility] Center[facility]/[id number] 23:41:00 Test Item Value Reference Range Interpretation Comments Protime (test code = 13.8 11.9- 14.2 5902-2) seconds INR (test code = 1.1 <=5.9 6301-6) PTT (test code = 31.1 22.5- 36.0 31595-7) seconds FADI (test code = FADI) Effective 10/10/2018: PT Reference Range ChangeNew: 11.9-14.2 Previous: 11.7-14.7 RECOMMENDED COUMADIN/WARFARIN INR THERAPY RANGESSTANDARD DOSE: 2.0-3.0 Includes: PROPHYLAXIS for venous thrombosis, systemic embolization; TREATMENT for venous thrombosis and/or pulmonary embolus.HIGH RISK: Target INR is 2.5-3.5 for patients wiht mechanical heart valves. Prior to initiating heparinPrior to initiating heparin Lab Interpretation Normal (test code = 42866-1) [facility]/[id number] 23:41:00 Test Item Value Reference Range Interpretation Comments PROTIME (BEAKER) (test code = 13.8 seconds 11.9-14.2 759) INR (BEAKER) (test code = 370) 1.1 <=5.9 PARTIAL THROMBOPLASTIN TIME 31.1 seconds 22.5-36.0 (BEAKER) (test code = 760) Effective 10/10/2018: PT Reference Range ChangeNew: 11.9-14.2 Previous: 11.7- 14.7RECOMMENDED COUMADIN/WARFARIN INR THERAPY RANGESSTANDARD DOSE: 2.0-3.0 Includes: PROPHYLAXIS for venous thrombosis, systemic embolization; TREATMENT for venous thrombosis and/or pulmonary embolus.HIGH RISK: Target INR is2.5-3.5 for patients wiht mechanical heart valves.Prior to initiating heparinPrior to initiating [id number] 23:41:00 Test Item Value Reference Range Interpretation Comments PARTIAL THROMBOPLASTIN TIME 31.1 seconds 22.5-36.0 ([facility]) (test code = 760) LACTIC ACID, [id number] 23:41:00 Test Item Value Reference Range Interpretation Comments LACTATE BLOOD VENOUS 1.1 mmol/L 0.5-2.2 Specime n slightly (2) ([facility]) (test hemolyzed code = 2872) Platelet [id number] 23:31:00 Test Item Value Reference Range Interpretation Comments Platelets (test code = 777-3) 348 150- 450 K/CU MM Lab Interpretation (test code = Normal 12604-2) [facility] CenterPLATELET [id number] 23:31:00 Test Item Value Reference Range Interpretation Comments PLATELET COUNT ([facility]) (test 348 K/CU MM 150-450 code = 756) POCT-GLUCOSE [id number] 23:27:00 Test Item Value Reference Range Interpretation Comments POC-GLUCOSE METER 244 mg/dL 70-110 H : TESTED A T [facility] 67 ([facility]) (test code = [facility], 1538) [address]: [employer]angel[employer] Management Specialist/Techni john ID = [id number] for MARQUITA AGUILERA POC ACTIVATED CLOTTING [id number] 18:39:00 Test Item Value Reference Range Interpretation Comments Activated Clotting Time 301 sec Refe rence Range: 74-137 (test code = 441) seconds, B aseline/TESTED AT [facility] [address] [facility] 7703 0 [facility] CenterPOCT-[id number] 18:39:00 Test Item Value Reference Range Interpretation Comments ACTIVATED CLOTTING TIME 301 sec Refe rence Range: ([facility]) (test code = 74-137 seconds, 441) Baseline/TESTED AT [facility] [address] [facility] 7703 0 [id number] 18:04:00 Test Item Value Reference Range Interpretation Comments ACTIVATED CLOTTING TIME 252 sec Refe rence Range: (BEAKER) (test code = 74-137 seconds, 441) Baseline/TESTED AT [facility] 67[address] [facility] 7703 0 [id number] 17:49:00 Test Item Value Reference Range Interpretation Comments ACTIVATED CLOTTING TIME 235 sec Refe rence Range: (BEAKER) (test code = 74-137 seconds, 441) Baseline/TESTED AT [facility] 67[address] [facility] 7703 0 POCT-GLUCOSE [id number] 13:18:00 Test Item Value Reference Range Interpretation Comments POC-GLUCOSE METER 187 mg/dL 70-110 H : TESTED A T [facility] [address] ([facility]) (test code = [facility], 1538) [id number]: [employer] Specialist/Techni john ID = [id number] for OR ANANDA FERRARA [id number] 12:52:00 Test Item Value Reference Range Interpretation Comments PARTIAL THROMBOPLASTIN TIME 42.7 seconds 22.5-36.0 H (YOON) (test code = 760) POCT-GLUCOSE [id number] 09:59:00 Test Item Value Reference Range Interpretation Comments POC-GLUCOSE METER 252 mg/dL 70-110 H : TESTED A T [facility] [address] ([facility]) (test code = [facility], 1538) [id number]: [employer] Specialist/Techni john ID = [id number] for OR HAIMY ANANDA Carotid doppler [id number] 08:36:08Ejection [facility] ECHO HEARTLAB MKCKESSON CPACSRight Impression1. There is <50% diameter reduction (approximately 16% by 2-D measurement)in the internal carotid artery with a peak velocity of 72.7/24.6 cm/sec andheterogeneous plaque.2. There is non-occluding plaque in the external carotid artery.3. There is non-occluding plaque in the common carotid artery.4. The vertebral artery flow is antegrade and normal.5. The subclavian artery is within normal limits where visualized.Left Impression1. There is 70-99% diameter reduction (approximately 71% by 2-D measurement)in the internal carotid artery with heterogeneous plaque, a peak velocity of365/87.9 cm/sec and an ICA/CCA peak systolic velocity ratio of 5.88.2. There is non- occluding plaque in the external carotid artery.3. There is non-occluding plaque in the common carotid artery.4. The vertebral artery flow is antegrade and normal.5. The subclavian artery is within normal limits where visualized. Conclusions Summary Carotid duplex scanning and color flow imaging were performed bilaterally. The arteries were adequately visualized. The right internal carotid artery had <50% hemodynamically insignificant stenosis (approximately 16% by2-D measurement) with heterogeneous plaque. The left internal [...] Velocities are measured in cm/s ; Diameters aremeasured in cm Carotid Right Measurements+ +----+----+-----+ + ---+ +!Location !PSV !EDV !Angle!%Stenosis 2D!%Stenosis Doppler!Tortuosity !+-------- -------+----+----+-----+ + + +!Prox CCA !78.6!21.7!60 ! ! ! !+ +----+----+-----+ + ----+ +!Dist CCA !67.4!22.9!60 ! ! ! !+------- --------+----+----+-----+ + + +!Prox ICA !72.7!24.6!60 !16% !<50% ! !+ +----+----+-----+ +--------- --------+ +!Dist ICA !85 !34.6!60 ! ! ! !+--- +----+----+-----+ + + +!Prox ECA !65.1!12.3!60 ! ! ! !+ +----+----+-----+ +-------- ---------+ +!Vertebral !45.6!11 !60 ! ! ! !+-- +----+----+-----+ + + +!Prox Subclavian!240 ! !60 ! ! ! !+ +----+----+-----+ + + + - There is antegrade vertebral flow noted on the right side. - Additional Measurements:ICAPSV/CCAPSV 1.26.ICAEDV/CCAEDV 1.59. Carotid Left Measurements+ +----+- ---+-----+ + + +!Location !PSV !EDV !Angle!%Stenosis 2D!%Stenosis Doppler!Tortuosity !+ +----+----+-----+ + +--------- --+!Prox CCA !72.1!15.8!60 ! ! ! !+ +----+ ----+-----+ + + +!Dist CCA !62.1!21.7!60 ! ! ! !+ +----+----+-----+ + +-------- ---+!Prox ICA !365 !87.9!60 !71% !70-99% ! !+ +---- +----+-----+ + + +!Dist ICA !258 !45.6!60 ! ! ! !+ +----+----+-----+ + +------- ----+!Prox ECA !96.7!11.7!60 ! ! ! !+ +--- -+----+-----+ + + +!Vertebral !35.9!10 !60 !! ! !+ +----+----+-----+ + +------ -----+!Prox Subclavian!208 ! !60 ! ! ! !+ +----+----+-----+ + + + - There is antegrade vertebral flow noted on the left side. - Additional Measurements:ICAPSV/CCAPSV 5.88.ICAEDV/CCAEDV 5.56. Interface, External Ris In - 04/24/2019 8:36 AM [facility] LAB - Carotid Duplex Study Demographics Patient Name CHRISSIE MUÑOZ Date of Study 04/24/2019 Age 59 Visit Number [id number] Gender Female Accession Number [id number] Date of 1960 Referring Daryl Pablo, Room Number 1114 Physician Gravity Prospecting Observer Helper Ehsan Kaplan Interpreting Lorenza Benoit MD Physician ProcedureType of Study: Cerebral: Carotid, CAROTID DOPPLER, BILATERAL. Indications for Study:Possible Bypass.Patient Status:Routine.Study Location:Portable.Technical Quality:Adequate visualization. - Results were reported to: EMMIE Calabrese @ 6:15AM.Risk FactorsHistory of Disease+ +----+ --+!Diagnosis !Date!Comments !+ +----+--------- +!History/Risk Factors: ! !Current Smoker, CAD, DM, HLD !+ +----+ +Imp ressionsRight Impression1. There is <50% diameter reduction (approximately 16% by 2-D measurement)in the internal carotid artery with a peak velocity of 72.7/24.6 cm/sec andheterogeneous plaque.2. There is non-occluding plaque in the external carotid artery.3. There is non-occluding plaque in the common carotid artery.4. The vertebral artery flow is antegrade and normal.5. The subclavian artery is within normal limits where visualized.Left Impression1. There is 70- 99% diameter reduction (approximately 71% by 2-D measurement)in the internal carotid artery with heterogeneous plaque, a peak velocity of365/87.9 cm/sec and an ICA/CCA peak systolic velocity ratio of 5.88.2. There is non-occluding plaque in the external carotid artery.3. There is non-occluding plaque in the common carotid artery.4. The vertebral artery flow is antegrade and normal.5. The subclavian artery is within normal limits where visualized. Conclusions Summary Carotid duplex scanning and color flow imaging were performed bilaterally. The arteries were adequately visualized. The right internal carotid artery had <50% hemodynamically insignificant stenosis (approximately 16% by 2-D measurement) with heterogeneous plaque. The left internal carotid artery had 70- 99% hemodynamically significant stenosis (approximately 71% by 2-D measurement) with heterogeneous plaque a peak velocity of 365/87.9 cm/sec and an ICA/CCA peak systolic velocity ratio of 5.88. The vertebral artery flow was antegrade and normal bilaterally. The subclavian arteries were patent with normal flow bilaterally where visualized. Signature Velocities are measured in cm/s ; Diameters are measured in cmCarotid Right Measurements+ + ----+----+-----+ + + +!Location !PSV !EDV !Angle!%Stenosis 2D!%Stenosis Doppler!Tortuosity !+ +----+----+-----+ + +--- --------+!Prox CCA !78.6!21.7!60 ! ! ! !+ +----+----+-----+ + + +!Dist CCA !67.4!22.9!60 ! ! ! !+ +----+----+-----+ + +-- ---------+!Prox ICA !72.7!24.6!60 !16% !<50% ! !+ ----+----+----+-----+ + + +!Dist ICA !85 !34.6!60 ! ! ! !+ +----+----+-----+ + -+ +!Prox ECA !65.1!12.3!60 ! ! ! !+ -----+----+----+-----+ + + +!Vertebral !45.6!11 !60 ! ! ! !+ +----+----+-----+ + --+ +!Prox Subclavian!240 ! !60 ! ! ! !+--------- ------+----+----+-----+ + + + - There is antegrade vertebral flow noted on the right side. - Additional Measurements:ICAPSV/CCAPSV 1.26.ICAEDV/CCAEDV 1.59.CarotidLeft Measurements+ +----+----+-----+ + +---- -------+!Location !PSV !EDV !Angle!%Stenosis 2D!%Stenosis Doppler!Tortuosity !+ +----+----+-----+ + + +!Prox CCA !72.1!15.8!60 ! ! ! !+ +----+----+-----+ + + +!Di st CCA !62.1!21.7!60 ! ! ! !+ +----+----+----- + + + +!Prox ICA !365 !87.9!60 !71% !70-99% ! !+ +----+----+-----+ + + +!Di stICA !258 !45.6!60 ! ! ! !+ +----+----+---- -+ + + +!Prox ECA !96.7!11.7!60 ! ! ! !+ +----+----+-----+ + + +!Ve rtebral !35.9!10 !60 ! ! ! !+ +----+----+--- --+ + + +!Prox Subclavian!208 ! !60 ! ! ! !+ +----+----+-----+ + + + - There is antegrade vertebral flow noted on the left side. - Additional Measurements:ICAPSV/CCAPSV 5.88.ICAEDV/CCAEDV 5.56.[facility] Hemoglobin [id number] 08:35:00 Test Item Value Reference Range Interpretation Comments Hemoglobin A1C (test code = 4548-4) 11.5 % 4.3-6.1 H Lab Interpretation (test code = Abnormal 44749-1) [facility] [id number] 08:35:00 Test Item Value Reference Range Interpretation Comments HEMOGLOBIN A1C (BEAKER) (test code = 11.5 % 4.3-6.1 H 368) [id number] 06:09:00 Test Item Value Reference Range Interpretation Comments PARTIAL THROMBOPLASTIN TIME 39.5 seconds 22.5-36.0 H (BEAKER) (test code = 760) ABORH, [id number] 02:54:00 Test Item Value Reference Range Interpretation Comments ABO Grouping (test code = 2588) O Rh Factor (test code = 2589) POS [facility], automated ([facility] Lab)2019-04-24 00:14:00 Test Item Value Reference Range Interpretation Comments ABO/RH AUTOMATED (BEAKER) (test O POSITIVE code = 2260) Ab Scrn (test code = 890-4) NEGATIVE [facility] METABOLIC [id number] 23:24:00 Test Item Value Reference Range Interpretation Comments SODIUM (BEAKER) 136 meq/L 136-145 (test code = 381) POTASSIUM (BEAKER) 3.5 meq/L 3.5-5.1 (test code = 379) CHLORIDE (BEAKER) 105 meq/L 98-107 (test code = 382) CO2 (BEAKER) (test 23 meq/L 22-29 code = 355) BLOOD UREA NITROGEN 13 mg/dL 7-21 (BEAKER) (test code = 354) CREATININE (BEAKER) 0.73 mg/dL 0.57-1.25 (test code = 358) GLUCOSE RANDOM 195 mg/dL 70-105 H (BEAKER) (test code = 652) CALCIUM (BEAKER) 8.6 mg/dL 8.4-10.2 (test code = 697) EGFR (BEAKER) (test 82 mL/min/1.73 ESTIMA DARIELA GFR IS code = 1092) sq m NOT ACCURATE CREATININE CLEARANCE IN PREDICTING GLOMERULAR FILTRATION RATE . ESTIMATED GFR I S NOT APPLICABLE FOR DIALYSIS PATIEN ELIANE. [id number] 23:15:00 Test Item Value Reference Range Interpretation Comments PARTIAL THROMBOPLASTIN TIME 28.7 seconds 22.5-36.0 (BEAKER) (test code = 760) Prior to initiating heparinProthrombin time/[id number] 23:14:00 Test Item Value Reference Range Interpretation Comments Protime (test code = 13.3 11.9- 14.2 5902-2) seconds INR (test code = 1.1 <=5.9 6301-6) FADI (test code = FADI) Effective 10/10/2018: PT Reference Range ChangeNew: 11.9-14.2 Previous: 11.7-14.7 RECOMMENDED COUMADIN/WARFARIN INR THERAPY RANGESSTANDARD DOSE: 2.0-3.0 Includes: PROPHYLAXIS for venous thrombosis, systemic embolization; TREATMENT for venous thrombosis and/or pulmonary embolus.HIGH RISK: Target INR is 2.5-3.5 for patients wiht mechanical heart valves. Prior to initiating heparin Lab Interpretation Normal (test code = 72668-5) [facility] CenterPROTHROM[facility]/[id number] 23:14:00 Test Item Value Reference Range Interpretation Comments PROTIME (BEAKER) (test code = 13.3 seconds 11.9-14.2 759) INR (BEAKER) (test code = 370) 1.1 <=5.9 Effective 10/10/2018: PT Reference Range ChangeNew: 11.9-14.2 Previous: 11.7- 14.7RECOMMENDED COUMADIN/WARFARIN INR THERAPY RANGESSTANDARD DOSE: 2.0-3.0 Includes: PROPHYLAXIS for venous thrombosis, systemic embolization; TREATMENT for venous thrombosis and/or pulmonary embolus.HIGH RISK: Target INR is2.5-3.5 for patients wiht mechanical heart valves.Prior to initiating heparinAPTT 2019-04-23 23:14:00 Test Item Value Reference Range Interpretation Comments PARTIAL THROMBOPLASTIN TIME 28.6 seconds 22.5-36.0 (BEAKER) (test code = 760) 6 hours after starting heparin infusion and as indicated per sliding scaleCBC with platelet count + automated [id number] 23:10:00 Test Item Value Reference Range Interpretation Comments WBC (test code = 6690-2) 13.5 3.5- 10.5 K/L H RBC (test code = 789-8) 4.86 3.93- 5.22 M/L MCHC (test code = 786-4) 33.4 32.2- 35.5 GM/DL Hematocrit (test code = 4544-3) 42.5 % 34.1-44.9 MCV (test code = 787-2) 87.4 fL 79.4-94.8 MCH (test code = 785-6) 29.2 pg 25.6-32.2 RDW (test code = 788-0) 13.2 % 11.7-14.4 Platelets (test code = 777-3) 367 150- 450 K/CU MM MPV (test code = 42922-5) 10.0 fL 9.4-12.3 nRBC (test code = 413) 0 0- 0 /100 WBC % Neutros (test code = 429) 55 % % Lymphs (test code = 430) 37 % % Monos (test code = 431) 6 % % Eos (test code = 432) 2 % % Baso (test code = 437) 0 % # Neutros (test code = 670) 7.44 1.56- 6.13 K/L H # Lymphs (test code = 414) 4.94 1.18- 3.74 K/L H # Monos (test code = 415) 0.77 0.24- 0.36 K/L H # Eos (test code = 416) 0.22 0.04- 0.36 K/L # Baso (test code = 417) 0.05 0.01- 0.08 K/L Immature Granulocytes-Relative 0 % 0-1 (test code = 2801) Lab Interpretation (test code = Abnormal 66108-6) [facility] W/PLT COUNT & AUTO [id number] 23:10:00 Test Item Value Reference Range Interpretation Comments WHITE BLOOD CELL COUNT (BEAKER) 13.5 K/ L 3.5-10.5 H (test code = 775) RED BLOOD CELL COUNT (BEAKER) 4.86 M/ L 3.93-5.22 (test code = 761) HEMOGLOBIN (BEAKER) (test code = 14.2 GM/DL 11.2-15.7 410) HEMATOCRIT (BEAKER) (test code = 42.5 % 34.1-44.9 411) MEAN CORPUSCULAR VOLUME (BEAKER) 87.4 fL 79.4-94.8 (test code = 753) MEAN CORPUSCULAR HEMOGLOBIN 29.2 pg 25.6-32.2 (BEAKER) (test code = 751) MEAN CORPUSCULAR HEMOGLOBIN CONC 33.4 GM/DL 32.2-35.5 (BEAKER) (test code = 752) RED CELL DISTRIBUTION WIDTH 13.2 % 11.7-14.4 (BEAKER) (test code = 412) PLATELET COUNT (BEAKER) (test 367 K/CU MM 150-450 code = 756) MEAN PLATELET VOLUME (BEAKER) 10.0 fL 9.4-12.3 (test code = 754) NUCLEATED RED BLOOD CELLS 0 /100 WBC 0-0 (BEAKER) (test code = 413) NEUTROPHILS RELATIVE PERCENT 55 % (BEAKER) (test code = 429) LYMPHOCYTES RELATIVE PERCENT 37 % (BEAKER) (test code = 430) MONOCYTES RELATIVE PERCENT 6 % (BEAKER) (test code = 431) EOSINOPHILS RELATIVE PERCENT 2 % (BEAKER) (test code = 432) BASOPHILS RELATIVE PERCENT 0 % (BEAKER) (test code = 437) NEUTROPHILS ABSOLUTE COUNT 7.44 K/ L 1.56-6.13 H (BEAKER) (test code = 670) LYMPHOCYTES ABSOLUTE COUNT 4.94 K/ L 1.18-3.74 H (BEAKER) (test code = 414) MONOCYTES ABSOLUTE COUNT (BEAKER) 0.77 K/ L 0.24-0.36 H (test code = 415) EOSINOPHILS ABSOLUTE COUNT 0.22 K/ L 0.04-0.36 (BEAKER) (test code = 416) BASOPHILS ABSOLUTE COUNT (BEAKER) 0.05 K/ L 0.01-0.08 (test code = 417) IMMATURE GRANULOCYTES-RELATIVE 0 % 0-1 PERCENT (BEAKER) (test code = 2801) POCT-GLUCOSE [id number] 22:59:00 Test Item Value Reference Range Interpretation Comments POC-GLUCOSE METER 194 mg/dL 70-110 H : TESTED A T [facility] 6720 (BEAKER) (test code = [place], 1538) [id number]: [place] Management Specialist/Techni john ID = [id number] for Mary Kate Mccoy
[2020-02-27 19:50] LABS: Absolute Lymphocytes (CBC) 3.2 K/uL (0.7-4.9); Basophils % 0.9 % (0-1.3); Hematocrit 37.4 % (36.0-45.0); Lymphocytes % 21.7 % (15.3-44.8); MPV 7.9 fL (7.6-11.3); Protime INR 0.98; RBC Red Blood Cell Count 4.43 M/uL (3.86-4.86)
[2020-02-27] MEDS ORDERED: NA CHLORIDE 0.9% 1,000 ML ONE (19:57)
[2020-02-27 20:13] LABS: ALT/SGPT 22 U/L (12-78); AST/SGOT 15 U/L (15-37); Albumin 3.3 g/dL (3.4-5.0); Alkaline Phosphatase 142 U/L (45-117); BUN Blood Urea Nitrogen 6 mg/dL (7-18); Bicarbonate 24 mmol/L (21-32); Bilirubin Direct < 0.1 mg/dL (0-0.2); Bilirubin Total 0.3 mg/dL (0.2-1.0); Glucose Level 211 mg/dL (74-106); NT PRO-BNP 357 pg/mL (<125); Protein, Total 7.2 g/dL (6.4-8.2); Sodium Level 137 mmol/L (136-145); Troponin (Emerg Dept Use Only) < 0.02 ng/mL (0.0-0.045)
[2020-02-27] MEDS ORDERED: ONDANSETRON 4 MG/2 ML VIAL ONE (20:16)
[2020-02-27] MEDS ORDERED: FENTANYL CITR 100 MCG/2 ML ONE (20:16)
--- NOTE | 2020-02-27 20:41 | RAD REPORT ---
EXAM DESCRIPTION: CT - Head Brain Wo Cont - 02/27/2020 8:14 pm CLINICAL HISTORY: Dizziness;Headache COMPARISON: No comparisons TECHNIQUE: Axial 5 mm thick images of the head were obtained without IV contrast. All CT scans are performed using dose optimization technique as appropriate and may include automated exposure control or mA/KV adjustment according to patient size. FINDINGS: An acute subdural hematoma is present overlying the right frontal and parietal lobes. This measures 7 mm in thickness. There is 6 mm of right to left midline shift. No intraparenchymal hemorr bladimir. Subarachnoid hemorrhage. Slight effacement of the right lateral ventricle. No acute cortical ba sed infarction. No cortical edema or suspicious sulcal effacement. Mastoid air cells and visualized portions of the paranasal sinuses are clear. No acute bony findings. Findings telephoned to the emergency department 8:32 p.m.. IMPRESSION: Acute right frontoparietal subdural hematoma 7 mm in thickness. There is 6 mm of right to left midline shift with partial effacement of the right lateral ventricle. No acute intraparenchymal finding.
--- NOTE | 2020-02-27 20:50 | RAD REPORT ---
EXAM DESCRIPTION: RAD - Chest Single View - 02/27/2020 7:57 pm CLINICAL HISTORY: CHEST PAIN COMPARISON: April 2019 TECHNIQUE: AP portable chest image was obtained 02/27/2020 7:57 pm . FINDINGS: No focal mass or consolidation. Chronic interstitial opacification matches comparison. Lef t subclavian pacemaker is in place. Heart and vasculature are normal. No measurable pleural effusion and no pneumothorax. Prominent right convex scoliotic curvature. No acute bony finding. No acute aort ic findings suspected. IMPRESSION: No acute cardiopulmonary process. No significant change from comparison.
--- NOTE | 2020-02-27 20:50 | ER ---
Nurse's Notes [facility] Name: Blanca Estrada Age: 59 yrs Sex: Female : 1960 Arrival Date: 02/27/2020 Time: 19:23 Bed 17 Private MD: Diagnosis: Nontraumatic acute subdural hemorrhage;Essential (primary) hypertension;Hypokalemia Presentation: 02/26 19:29 Chief complaint: EMS states: they were toned out for pt having similar symptoms to what bb she had when she had an NC in the past, she was clammy, dizzy, BP elevated denies chest pain she also has cough and congestion. Coronavirus screen: At this time, the client does not indicate any symptoms associated with coronavirus-19. Ebola Screen: No symptoms or risks identified at this time. Initial Sepsis Screen: Does the patient meet any 2 criteria? No. Patient's initial sepsis screen is negative. Does the patient have a suspected source of infection? No. Patient's initial sepsis screen is negative. Risk Assessment: Do you want to hurt yourself or someone else? Patient reports no desire to harm self or others. Onset of symptoms was February 27, 2020. 19:29 Method Of Arrival: EMS: [facility] bb 19:29 Acuity: WILMAR 3 bb Historical: - Allergies: 19:34 Morphine; bb - Home Meds: 19:34 aspirin 81 mg Oral chew 1 tab once daily [Active]; atorvastatin 80 mg Oral tab 1 tab bb once daily [Active]; clopidogrel 75 mg Oral tab 1 tab once daily [Active]; glargine insuline 100 units/ml SQ [Active]; lisinopril 2.5 mg Oral tab 1 tab once daily [Active]; lispro insulin 100 unit/ml [Active]; metoprolol tartrate 25 mg Oral tab 1 tab once daily [Active]; Fluoxetine Oral [Active]; - PMHx: 19:34 Clots in the past; Diabetes - IDDM; Hyperlipidemia; Hypertension; CAD; CVA; Myocardial bb infarction; Kidney surgery x 4; - PSHx: 19:34 Back x 2; pacemaker; bb - Immunization history:: Adult Immunizations up to date. - Social history:: Smoking status: Patient reports the use of cigarette tobacco products, smokes two packs cigarettes per day. Patient/guardian denies using alcohol, street drugs. - Family history:: not pertinent. Screenin:39 Abuse screen: Denies threats or abuse. Denies injuries from another. Nutritional ca1 screening: No deficits noted. Tuberculosis screening: No symptoms or risk factors identified. Fall Risk IV access (20 points). Assessment: 19:39 General: Appears in no apparent distress. comfortable, Behavior is calm, cooperative, ca1 appropriate for age. Pain: Complains of pain in face, R side Pain currently is 7 out of 10 on a pain scale. Pain began 1 hour ago. Is continuous. Neuro: Level of Consciousness is awake, alert, obeys commands, Oriented to person, place, time, situation, Catalyst Impregnator are equal bilaterally Moves all extremities. Gait is steady, Speech is normal, Facial symmetry appears normal, Pupils are PERRLA, Intact Reports dizziness, headache in right parietal area, frontal area. Cardiovascular: Heart tones S1 S2 present Capillary refill < 3 seconds Patient's skin is warm and dry. Rhythm is Respiratory: Airway is patent Respiratory effort is even, unlabored, Respiratory pattern is regular, symmetrical, Breath sounds are clear bilaterally. GI: Abdomen is flat, non-distended, Bowel sounds present X 4 quads. Abd is soft and non tender X 4 quads. Reports nausea. : No signs and/or symptoms were reported regarding the genitourinary system. EENT: No signs and/or symptoms were reported regarding the EENT system. Derm: Skin is intact, is healthy with good turgor, Skin is pink, warm \T\ dry. Reports an hour ACID CHANGER she felt sweaty and clammy. Resolved at this time. Musculoskeletal: Circulation, motion, and sensation intact. Capillary refill < 3 seconds. 20:31 Reassessment: Patient appears in no apparent distress at this time. Patient and/or ca1 family updated on plan of care and expected duration. Pain level reassessed. Patient is alert, oriented x 3, equal unlabored respirations, skin warm/dry/pink. 21:19 Reassessment: Patient appears in no apparent distress at this time. Patient is alert, ca1 oriented x 3, equal unlabored respirations, skin warm/dry/pink. 21:19 Reassessment: Called Report to EMMIE Maradiaga at [facility]. ca1 21:30 Reassessment: Patient appears in no apparent distress at this time. Patient is alert, ca1 oriented x 3, equal unlabored respirations, skin warm/dry/pink. Vital Signs: 19:29 BP 177 / 79; Pulse 67; Resp 16 S; Temp 98.6(O); Pulse Ox 96% on R/A; Weight 77.11 kg bb (R); Height 5 ft. 8 in. (172.72 cm) (R); Pain 7/10; 19:40 BP 173 / 81 RA (auto/reg); Pulse 73; Resp 16 S; Pulse Ox 96% on R/A; jp3 20:31 BP 191 / 73 RA; Pulse 65; Resp 15 S; Pulse Ox 95% on R/A; ca1 20:31 BP 200 / 88 LA; ca1 21:00 BP 191 / 73; Pulse 72; Resp 16 S; Pulse Ox 95% on R/A; ca1 21:32 BP 148 / 87; Pulse 80; Resp 18 S; Pulse Ox 98% on R/A; ca1 19:29 Body Mass Index 25.85 (77.11 kg, 172.72 cm) bb 19:40 POC Glucose is 216 jp3 Chas Coma Score: 20:00 Eye Response: spontaneous(4). Verbal Response: oriented(5). Motor Response: obeys ca1 commands(6). Total: 15. 20:30 Eye Response: spontaneous(4). Verbal Response: oriented(5). Motor Response: obeys ca1 commands(6). Total: 15. 21:09 Eye Response: spontaneous(4). Verbal Response: oriented(5). Motor Response: obeys ca1 commands(6). Total: 15. ED Course: 19:23 Patient arrived in ED. cf2 19:27 Duy Capps MD is Attending Physician. coral 19:27 Kamilla Bonds, EMMIE is Primary Nurse. ca1 19:30 wiping cloth cutter on. Pulse ox on. NIBP on. jp3 19:30 Patient has correct armband on for positive identification. Bed in low position. Call jp3 light in reach. Side rails up X 1. Side rails up X2. Warm blanket given. Pillow given. Verbal reassurance given. 19:31 Triage completed. bb 19:34 Arm band placed on Patient placed in an exam room, on a stretcher, on medical i d sales, bb on pulse oximetry. EKG completed in triage. Results shown to MD. 19:36 No provider procedures requiring assistance completed. Initial lab(s) drawn, by me, ca1 sent to lab. Maintain EMS IV. Dressing intact. Good blood return noted. Site clean \T\ dry. Gauge \T\ site: 22 G LFA. 19:39 EKG done, by ED staff, reviewed by Duy Capps MD. Patient maintains SpO2 saturation jp3 greater than 95% on room air. 19:58 XRAY Chest (1 view) In Process Unspecified. EDMS 20:14 CT Head Brain wo Cont In Process Unspecified. EDMS 21:13 Dr. Capps initiated transfer at [facility]. Emily Link gave admin approval. Russell Rueda accepted at 2043. Report to be called to . Face sheet faxed to . [facility] will transfer pt and MOT and Face Sheet faxed to [phone]. 21:32 Patient transferred, IV remains in place. ca1 Administered Medications: Discontinued: NS 0.9% 1000 ml IV at 125 ml/hr continuous 19:47 Drug: NS 0.9% 1000 ml Route: IV; Rate: 125 ml/hr; Site: left forearm; ca1 20:04 Drug: Zofran (Ondansetron) 4 mg Route: IVP; Site: left forearm; ca1 21:00 Follow up: Response: No adverse reaction; Nausea is decreased ca1 20:06 Drug: fentaNYL (PF) 25 mcg {Note: rass 0.} Route: IVP; Site: left antecubital; ca1 21:27 Follow up: Response: No adverse reaction; Pain is unchanged, physician notified ca1 20:28 Drug: fentaNYL (PF) 25 mcg {Note: rass 0.} Route: IVP; Site: left femoral; ca1 21:00 Follow up: Response: No adverse reaction; Pain is decreased; RASS: Alert and Calm (0) ca1 20:48 Drug: NS 0.9% with KCl 20 mEq/L 1000 ml Route: IV; Rate: 125 ml/hr; Site: left forearm; ca1 21:30 Follow up: Response: No adverse reaction; IV Status: Infusion continued upon transfer ca1 21:07 Drug: niCARdipine (25mg/250ml) 5 mg/hr Route: IV; Rate: per protocol; Site: left ca1 forearm; 21:30 Follow up: Response: No adverse reaction; IV Status: Infusion continued upon transfer ca1 Outcome: 20:50 ER care complete, transfer ordered by MD. moncada 21:32 Transferred by helicopter to [facility], [facility], Transfer form completed. ca1 X-rays sent w/ patient. 21:32 Condition: stable 21:32 Instructed on the need for transfer. 21:34 Patient left the ED. ca1 Signatures: Dispatcher [employer] EDDuy Cruz MD MD cha Ballard, Brenda, RN RN bb Quincy Albarado jp3 Kamilla Bonds RN RN ca1 Joe Chang cf2 Eufemia, Jeremy tt3 Corrections: (The following items were deleted from the chart) 19:41 19:39 Neuro: Level of Consciousness is awake, alert, obeys commands, Oriented to ca1 person, place, time, situation, Catalyst Impregnator are equal bilaterally Moves all extremities. Gait is steady, Speech is normal, Facial symmetry appears normal, Pupils are PERRLA, Intact ca1 19:41 19:39 GI: Abdomen is flat, non-distended, Bowel sounds present X 4 quads. Abd is soft ca1 and non tender X 4 quads. ca1 20:35 20:31 BP 191 / 73; Pulse 65bpm; Resp 15bpm; Spontaneous; Pulse Ox 95% RA; ca1 ca1
--- NOTE | 2020-02-27 20:51 | EDPHYS ---
Physician Documentation [facility] Name: Blanca Estrada Age: 59 yrs Sex: Female : 1960 Arrival Date: 02/27/2020 Time: 19:23 Bed 17 Private MD: ED Physician Duy Capps HPI: 02/26 20:43 This 59 yrs old Female presents to ER via EMS with complaints of Dizziness. coral 20:43 The patient presents with dizziness. Onset: The symptoms/episode began/occurred 4 coral hour(s) ago. Context: occurred at an unknown location. Modifying factors: The symptoms are alleviated by nothing, the symptoms are aggravated by nothing. Associated signs and symptoms: The patient has no apparent associated signs or symptoms. Severity of symptoms: At their worst the symptoms were mild in the emergency department the symptoms are unchanged. Patient's baseline: Neuro: alert and fully oriented. Historical: - Allergies: 19:34 Morphine; bb - Home Meds: 19:34 aspirin 81 mg Oral chew 1 tab once daily [Active]; atorvastatin 80 mg Oral tab 1 tab bb once daily [Active]; clopidogrel 75 mg Oral tab 1 tab once daily [Active]; glargine insuline 100 units/ml SQ [Active]; lisinopril 2.5 mg Oral tab 1 tab once daily [Active]; lispro insulin 100 unit/ml [Active]; metoprolol tartrate 25 mg Oral tab 1 tab once daily [Active]; Fluoxetine Oral [Active]; - PMHx: 19:34 Clots in the past; Diabetes - IDDM; Hyperlipidemia; Hypertension; CAD; CVA; Myocardial bb infarction; Kidney surgery x 4; - PSHx: 19:34 Back x 2; pacemaker; bb - Immunization history:: Adult Immunizations up to date. - Social history:: Smoking status: Patient reports the use of cigarette tobacco products, smokes two packs cigarettes per day. Patient/guardian denies using alcohol, street drugs. - Family history:: not pertinent. ROS: 20:43 Constitutional: Negative for fever, chills, and weight loss, Eyes: Negative for injury, coral pain, redness, and discharge, ENT: Negative for injury, pain, and discharge, Neck: Negative for injury, pain, and swelling, Cardiovascular: Negative for chest pain, palpitations, and edema, Respiratory: Negative for shortness of breath, cough, wheezing, and pleuritic chest pain, Abdomen/GI: Negative for abdominal pain, nausea, vomiting, diarrhea, and constipation, Back: Negative for injury and pain, : Negative for injury, bleeding, discharge, and swelling, MS/Extremity: Negative for injury and deformity, Skin: Negative for injury, rash, and discoloration, Psych: Negative for depression, anxiety, suicide ideation, homicidal ideation, and hallucinations, Allergy/Immunology: Negative for hives, rash, and allergies, Endocrine: Negative for neck swelling, polydipsia, polyuria, polyphagia, and marked weight changes. 20:43 Neuro: Positive for dizziness, headache. Exam: 20:43 Constitutional: This is a well developed, well nourished patient who is awake, alert, coral and in no acute distress. Head/Face: Normocephalic, atraumatic. Eyes: Pupils equal round and reactive to light, extra-ocular motions intact. Lids and lashes normal. Conjunctiva and sclera are non-icteric and not injected. Cornea within normal limits. Periorbital areas with no swelling, redness, or edema. ENT: Nares patent. No nasal discharge, no septal abnormalities noted. Tympanic membranes are normal and external auditory canals are clear. Oropharynx with no redness, swelling, or masses, exudates, or evidence of obstruction, uvula midline. Mucous membranes moist. Neck: Trachea midline, no thyromegaly or masses palpated, and no cervical lymphadenopathy. Supple, full range of motion without nuchal rigidity, or vertebral point tenderness. No Meningismus. Chest/axilla: Normal chest wall appearance and motion. Nontender with no deformity. No lesions are appreciated. Cardiovascular: Regular rate and rhythm with a normal S1 and S2. No gallops, murmurs, or rubs. Normal PMI, no JVD. No pulse deficits. Respiratory: Lungs have equal breath sounds bilaterally, clear to auscultation and percussion. No rales, rhonchi or wheezes noted. No increased work of breathing, no retractions or nasal flaring. Abdomen/GI: Soft, non-tender, with normal bowel sounds. No distension or tympany. No guarding or rebound. No evidence of tenderness throughout. Back: No spinal tenderness. No costovertebral tenderness. Full range of motion. Female : Normal external genitalia. Skin: Warm, dry with normal turgor. Normal color with no rashes, no lesions, and no evidence of cellulitis. MS/ Extremity: Pulses equal, no cyanosis. Neurovascular intact. Full, normal range of motion. Neuro: Awake and alert, GCS 15, oriented to person, place, time, and situation. Cranial nerves II-XII grossly intact. Motor strength 5/5 in all extremities. Sensory grossly intact. Cerebellar exam normal. Normal gait. Psych: Awake, alert, with orientation to person, place and time. Behavior, mood, and affect are within normal limits. 20:55 ECG was reviewed by the Attending Physician. [facility] Vital Signs: 19:29 BP 177 / 79; Pulse 67; Resp 16 S; Temp 98.6(O); Pulse Ox 96% on R/A; Weight 77.11 kg bb (R); Height 5 ft. 8 in. (172.72 cm) (R); Pain 7/10; 19:40 BP 173 / 81 RA (auto/reg); Pulse 73; Resp 16 S; Pulse Ox 96% on R/A; jp3 20:31 BP 191 / 73 RA; Pulse 65; Resp 15 S; Pulse Ox 95% on R/A; ca1 20:31 BP 200 / 88 LA; ca1 21:00 BP 191 / 73; Pulse 72; Resp 16 S; Pulse Ox 95% on R/A; ca1 21:32 BP 148 / 87; Pulse 80; Resp 18 S; Pulse Ox 98% on R/A; ca1 19:29 Body Mass Index 25.85 (77.11 kg, 172.72 cm) bb 19:40 POC Glucose is 216 jp3 [place] Coma Score: 20:00 Eye Response: spontaneous(4). Verbal Response: oriented(5). Motor Response: obeys ca1 commands(6). Total: 15. 20:30 Eye Response: spontaneous(4). Verbal Response: oriented(5). Motor Response: obeys ca1 commands(6). Total: 15. 21:09 Eye Response: spontaneous(4). Verbal Response: oriented(5). Motor Response: obeys ca1 commands(6). Total: 15. MDM: 19:27 Patient medically screened. coral 20:46 Differential diagnosis: cardiac arrhythmia, generalized weakness, head injury, coral near-syncope, syncope, TIA. Data reviewed: vital signs, nurses notes, EMS record, lab test result(s), EKG, radiologic studies, CT scan, plain films. Data interpreted: satellite project site monitor: rate is 65 beats/min, rhythm is regular. Test interpretation: by ED physician or midlevel provider: ECG, plain radiologic studies. Counseling: I had a detailed discussion with the patient and/or guardian regarding: the historical points, exam findings, and any diagnostic results supporting the discharge/admit diagnosis, the presence of at least one elevated blood pressure reading (>120/80) during this emergency department visit, lab results, radiology results, the need to transfer to another facility, for higher level of care, [facility] does not immediately have the required specialist. 02/26 19:28 Order name: Basic Metabolic Panel; Complete Time: 20:41 ca1 02/26 19:28 Order name: CBC with Diff; Complete Time: 20:41 ca1 02/26 19:28 Order name: LFT's; Complete Time: 20:41 ca1 02/26 19:28 Order name: Magnesium; Complete Time: 20:41 ca1 02/26 19:28 Order name: NT PRO-BNP; Complete Time: 20:41 ca1 02/26 19:28 Order name: PT-INR; Complete Time: 20:41 ca1 02/26 19:28 Order name: Troponin (emerg Dept Use Only); Complete Time: 20:41 ca1 02/26 19:48 Order name: Glucose, Ancillary Testing; Complete Time: 20:41 EDMS 02/26 19:28 Order name: XRAY Chest (1 view) 02/26 19:28 Order name: EKG; Complete Time: 19:29 ca1 02/26 19:28 Order name: Cardiac monitoring; Complete Time: 19:37 ca1 02/26 19:28 Order name: EKG - Nurse/Tech; Complete Time: 19:28 ca1 02/26 19:28 Order name: IV Saline Lock; Complete Time: 19:29 ca1 02/26 19:28 Order name: Labs collected and sent; Complete Time: 19:37 ca1 02/26 19:28 Order name: O2 Per Protocol; Complete Time: 19:28 ca1 02/26 19:29 Order name: EKG; Complete Time: 19:30 coral 02/26 19:29 Order name: CT Head Brain wo Cont; Complete Time: 20:50 [facility] 02/26 19:28 Order name: O2 Sat Monitoring; Complete Time: 19:28 [facility] 02/26 19:29 Order name: Cardiac monitoring; Complete Time: 19:37 [facility] 02/26 19:29 Order name: EKG - Nurse/Tech; Complete Time: 19:37 [facility] 02/26 19:29 Order name: IV Saline Lock; Complete Time: 19:37 [facility] 02/26 19:29 Order name: Labs collected and sent; Complete Time: 19:38 [facility] 02/26 19:29 Order name: O2 Per Protocol; Complete Time: 19:38 [facility] 02/26 19:29 Order name: O2 Sat Monitoring; Complete Time: 19:38 [facility] 02/26 20:52 Order name: NPO; Complete Time: 20:58 [facility] EC:55 Rate is 64 beats/min. Rhythm is regular. QRS [place] is Normal. CT interval is normal. QRS coral interval is normal. QT interval is normal. No Q waves. T waves are Normal. No ST changes noted. Clinical impression: NSR w/ Non-specific ST/T Changes and No evidence of ischemia. Interpreted by me. Reviewed by me. Administered Medications: Discontinued: NS 0.9% 1000 ml IV at 125 ml/hr continuous 19:47 Drug: NS 0.9% 1000 ml Route: IV; Rate: 125 ml/hr; Site: left forearm; ca1 20:04 Drug: Zofran (Ondansetron) 4 mg Route: IVP; Site: left forearm; ca1 21:00 Follow up: Response: No adverse reaction; Nausea is decreased ca1 20:06 Drug: fentaNYL (PF) 25 mcg {Note: rass 0.} Route: IVP; Site: left antecubital; ca1 21:27 Follow up: Response: No adverse reaction; Pain is unchanged, physician notified ca1 20:28 Drug: fentaNYL (PF) 25 mcg {Note: rass 0.} Route: IVP; Site: left femoral; ca1 21:00 Follow up: Response: No adverse reaction; Pain is decreased; RASS: Alert and Calm (0) ca1 20:48 Drug: NS 0.9% with KCl 20 mEq/L 1000 ml Route: IV; Rate: 125 ml/hr; Site: left forearm; ca1 21:30 Follow up: Response: No adverse reaction; IV Status: Infusion continued upon transfer ca1 21:07 Drug: niCARdipine (25mg/250ml) 5 mg/hr Route: IV; Rate: per protocol; Site: left ca1 forearm; 21:30 Follow up: Response: No adverse reaction; IV Status: Infusion continued upon transfer ca1 Disposition: 02/27/20 20:50 Transfer ordered to [facility]. Diagnosis are Nontraumatic acute subdural hemorrhage, Essential (primary) hypertension, Hypokalemia. - Reason for transfer: Higher level of care. - Accepting physician is to [facility] via life flight. - Condition is Fair. - Problem is new. - Symptoms are unchanged. Signatures: Dispatcher [employer] EDMS Duy Capps MD MD cha Ballard, Brenda, RN RN Kamilla Deluna RN RN ca1 Corrections: (The following items were deleted from the chart) 19:31 19:29 BASIC METABOLIC PANEL+C.LAB.BRZ ordered. EDMS EDMS 19:31 19:29 CBC+H.LAB.BRZ ordered. EDMS EDMS 19:41 19:30 HEPATIC FUNCTION+C.LAB.BRZ ordered. EDMS EDMS 19:41 19:30 MAGNESIUM+C.LAB.BRZ ordered. EDMS EDMS 19:41 19:30 PROBNP+C.LAB.BRZ ordered. EDMS EDMS 19:41 19:30 TROPONIN (EMERG DEPT USE ONLY)+C.LAB.BRZ ordered. EDMS EDMS 19:57 19:30 Chest Single View+RAD.RAD.BRZ ordered. EDMS EDMS 21:34 20:50 02/27/2020 20:50 Transfer ordered to [facility]. ca1 Diagnosis is Nontraumatic acute subdural hemorrhage; Essential (primary) hypertension; Hypokalemia. Reason for transfer: Higher level of care. Accepting physician is to [facility] via life flight. Condition is Fair. Problem is new. Symptoms are unchanged. coral
[2020-02-27] MEDS ORDERED: NS KCL 20MEQ 1,000 ML IV ONE (21:00)
[2020-02-27] MEDS ORDERED: Nicardipine/NS 25 MG/250 ML KIT IV ONE (21:13)
[2020-02-27 21:53] VITALS: TEMP 98.6
[2020-02-27 23:32] VITALS: BP 148/87; O2SAT 98
== END 2020-02-27 21:34 | disposition short-term general hospital (02) ==
LOC: ER 19:22
DX: I62.01 Nontraumatic acute subdural hemorrhage (principal); I10 Essential (primary) hypertension; E87.6 Hypokalemia; E11.9 Type 2 diabetes mellitus without complications; I25.2 Old myocardial infarction; F17.210 Nicotine dependence, cigarettes, uncomplicated; Z79.4 Long term (current) use of insulin; Z88.5 Allergy status to narcotic agent; Z95.0 Presence of cardiac pacemaker
CPT/HCPCS: 36415; 70450; 71045; 80048; 80076; 82947; 83735; 83880; 84484; 85025; 85610; 93005; 99285; J2405; J3010; J7030

== ENCOUNTER 2020-03-13 00:11 | Emergency (ER) | payer SELFPAY ==
--- OUTSIDE RECORDS SUMMARY | 2020-03-13 00:15 | XMS REPORT | Clinical Summary ---
:1960 Author Organization [facility] Address [address] [place] [address] Care Team Providers Name Role Phone Pcp Primary Care Provider Unavailable Ezekiel Venegas Unavailable Allergies Active Allergy Reactions Severity Noted Date Comments Morphine Other (See Comments) 02/27/2020 panic a ttack as pt verbnalized Medications Medication Sig Dispensed Refills Start Date End Date Status miconazole (MICOTIN) Apply topically 2 28.35 g 0 04/26/2019 04/25/2020 Active 2 % cream (two) times daily. Additional Information Patient taking differently: Topical (Top) As needed, Reported on 02/28/2020 10:08 AM insulin glargine Inject 10 Units 10 mL 0 04/26/2019 Active (LANTUS) 100 subcutaneously unit/mL (3 mL) nightly. InPn insulin lispro Before meals: inject 100 mL 0 04/26/2019 Active (HUMALOG) 100 1 unit SQ if sugar unit/mL InPn >200; 2 units SQ if BG >250; 4 units SQ if BG >300; 6 units if > 350; 8 units if sugar > 400. glucometer Use pre meals and 1 each 0 04/26/2019 Active (FREESTYLE) Misc pre bedtime with strips and lancets. blood sugar 120 strips by 120 strip 0 04/26/2019 Act norma diagnostic Miscellaneous route (GLUCOSE BLOOD) 4 (four) times Strp daily. lancets (LANCETS, Use for glucose 120 each 0 04/26/2019 Active SUPER THIN) Misc check 4 times daily. insulin detemir Inject 0 Acti ve U-100 (LEVEMIR) subcutaneously 100 unit/mL nightly bedtime . injection insulin aspart Inject 0 Activ e U-100 (NovoLOG) subcutaneously 3 100 unit/mL (3 mL) (three) times daily InPn before meals Afternoon around noon . atorvastatin Take 80 mg by mouth 0 Active (LIPITOR) 80 MG nightly. tablet FLUoxetine Take 60 mg by mouth 0 Active (PROzac) 40 MG daily 60 mg (not capsule 40mg)! . pantoprazole Take 40 mg by mouth 0 Active (PROTONIX) 40 MG daily. tablet aspirin 81 MG EC Take 1 tablet (81 mg 90 tablet 3 03/06/2020 1 / Active tablet total) by mouth 2020 daily. lisinopriL Take 1 tablet (40 mg 90 tablet 3 03/02/202003/02/ Active (PRINIVIL,ZESTRIL) total) by mouth 2020 40 MG tablet daily. carvediloL (COREG) Take 1 tablet (25 mg 180 tablet 3 0 03/01/ Active 25 MG tablet total) by mouth 2 2020 (two) times daily. traMADoL (ULTRAM) Take 1 tablet (50 mg 30 tablet 0 03/01/2020 Active 50 mg tablet total) by mouth every 6 (six) hours as needed for Pain (Headache). Max Daily Amount: 200 mg aspirin 81 MG Take 1 tablet (81 mg 90 tablet 0 04/27/201907/13/ chewable tablet total) by mouth 2019 daily for 90 days. atorvastatin Take 1 tablet (80 mg 30 tablet 0 04/26/201904/28 / Discontinued (LIPITOR) 80 MG total) by mouth 2019 tablet nightly for 30 days. clopidogrel Take 1 tablet (75 mg 30 tablet 0 04/27/201905/27/ (PLAVIX) 75 mg total) by mouth 2019 tablet daily for 30 days. HYDROcodone-acetam Take 1 tablet by 20 tablet 0 04/26/2019/ inophen (NORCO mouth every 4 (four) 2018 10-325) 10-325 mg hours as needed for per tablet Pain for up to 10 days. Max Daily Amount: 6 tablets lisinopril Take 1 tablet (10 mg 30 tablet 0 04/26/201904/28/ Discontinued (PRINIVIL,ZESTRIL) total) by mouth 2018 (Stop Taking at 10 MG tablet daily for 30 days. Discharge) metoprolol Take 1 tablet (25 mg 30 tablet 0 04/27/201905/27/ (TOPROL-XL) 25 MG total) by mouth 2020 24 hr tablet daily for 30 days. mINOCYCLine Take 1 capsule (100 10 capsule 0 04/27/2019 (MINOCIN,DYNACIN) mg total) by mouth 201 9 100 MG capsule every 12 (twelve) hours for 5 days. pantoprazole Take 1 tablet (40 mg 30 tablet 0 04/27/201905/27 (PROTONIX) 40 MG total) by mouth 2020 tablet every morning before breakfast for 30 days. lisinopril Take 1 tablet (2.5 30 tablet 0 04/29/201905/29/ (PRINIVIL,ZESTRIL) mg total) by mouth 20 20 2.5 MG tablet daily for 30 days. atorvastatin Take 1 tablet (80 mg 30 tablet 0 04/28/201905/28 (LIPITOR) 80 MG total) by mouth 2020 tablet nightly for 30 days. aspirin 81 MG EC Take 81 mg by mouth 0 / Discontinued tablet daily. 2019 (Reorder) clopidogreL Take 75 mg by mouth 0 03/01/ Discontinued (PLAVIX) 75 mg daily. 2019 (Stop Taking at tablet Discharge) lisinopriL Take 10 mg by mouth 0 03/01/ Discontinued (PRINIVIL,ZESTRIL) daily. 2019 ( Stop Taking at 10 MG tablet Dischar ge) metoprolol Take 25 mg by mouth 0 03/01/ Discontinued succinate daily. 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 Subdural hemorrhage 02/27/2020 Hypertension 04/24/2019 Hyperlipidemia 04/24/2019 VT (ventricular tachycardia) 04/24/2019 Heart block 04/24/2019 Leukocytosis 04/24/2019 Uncontrolled diabetes mellitus with hyperglycemia 04/14 CAD (coronary artery disease) 04/23/2019 Encounters Date Type Specialty Care Team Description 02/27/2020 - Hospital Encounter General Internal Jan Rueda Subd ural hemorrhage (HCC) (Primary Dx); 03/01/2020 Fernanda Swanson MD Acute subdural hematoma (HCC); Coronary artery disease involving assinibo[place] and sioux coronary artery of assiniboine and sioux heart without angina pectoris; Cerebral edema (HCC); Pure hyperchole sterolemia; Midline shift o f brain 05/01/2019 Documentation Janna Almaraz RN 04/26/2019 Surgery Samuel Hernandez, PACEMAKER GEN SANDRA BUCKNER - INSERTION W/ EXISTING LEAD (SINGLE) 04/24/2019 Surgery Dain Hutchinson HEART CATH ONLY - MD Ruth NO ANGIOS 04/24/2019 Orders Only General Internal Medicine 04/23/2019 - Hospital Encounter Cardiology Daryl Pablo Coronary artery disease involving assinibo[place] and sioux coronary artery of assiniboine and sioux heart with unstable angina pectoris (HCC) (Primary Dx); 04/28/2019 MD Terri New onset type 2 diabetes mellitus (HCC) Peri Wright MD Joudah, Fady Ahmad, MD 04/23/2019 Travel after 03/13/2019 Immunizations Name Administration Dates Next Due Influenza Four-QIV PF 3YR+ 02/28/2020 Pneumococcal Conjugate (Prevnar) 13-Valent 02/28/2020 Family History Medical History Relation Name Comments Coronary artery disease Mother Relation Name Status Comments Mother Social History Tobacco Use Types Packs/Day Years Used Date Current Every Day Smoker 2 Smokeless Tobacco: Current User Tobacco Cessation: Ready to Quit: No; Co unseling Given: Yes Alcohol Use Drinks/Week oz/Week Comments No Alcohol [...] Sign Reading Time Taken Comments Blood Pressure 167/90 03/01/2020 8:48 AM CDT Pulse 67 03/01/2020 8:48 AM CDT Temperature 36.6 C (97.9 F) 03/01/2020 8:48 AM CDT Respiratory Rate 18 03/01/2020 8:48 AM CDT Oxygen Saturation 99% 03/01/2020 8:48 AM CDT Inhaled Oxygen Concentration - - Weight 77.2 kg (170 lb 3.1 oz) 02/28/2020 6:00 AM CDT Height 172.7 cm (5' 8") 02/28/2020 6:00 AM CDT Body Mass Index 25.88 02/28/2020 6:00 AM CDT Plan of Treatment Health Maintenance Due Date Last Done Comments BREAST CANCER SCREENING 1960 COLON CANCER SCREENING COLONOSCOPY 1960 DIABETIC EYE EXAM 1972 DIABETIC FOOT EXAM 1972 URINE MICROALBUMIN 1972 CERVICAL CANCER SCREENING PAP ONLY (Age [birth year]/1983 21-65) PNEUMOCOCCAL VACCINE 0-64 YRS (1 of 1 - 04/24/2020 02/28/20 20 PPSV23) HEMOGLOBIN A1C 08/29/2020 02/29/2020, 04/23/2019 LIPID PANEL 04/25/2022 04/25/2019 INFLUENZA VACCINE Completed 02/28/2020, 04/21/2019 Implants Implanted Type Area Soloist Dancer Device Shelf Model / Identifier Expiration Serial / Date Lot Stent Synergy Otw 3.50x8mm [id number] - [id number] IMPLANTS N/A : [employer] [id number] / Implanted: Qty: 1 on 04/24/2019 by Dain Sanders MD at [facility] Coronary SCI:INTERV [id number] / CARDIOLOGY Description:Left Main Lead Pacemkr Capsur Novus 52cm 5076-52 - [id number] PACEMAKER/I CD N/A: MEDTRONIC:CARD [id number] 03/05/2021 5076-52 / Implanted: Qty: 1 on 04/26/2019 by Samuel Mireles i, MD at [facility] CHAMBER DEVICE Heart RHY:DISEASE MGT P [id number] / Description:RV lead Lead Pacemkr Capsur Novus 45cm 5076-45 - [id number] PACEMAKER/I CD N/A: MEDTRONIC:CARD [id number] 03/12/2021 5076-45 / Implanted: Qty: 1 on 04/26/2019 by Samuel Mireles i, MD at [facility] CHAMBER DEVICE Heart RHY:DISEASE MGT P [id number] / Description:RA lead Pacemkr Orting Xtdr Mri Ipg [id number] - [id number] PACEMAKER/ICD Left: MEDTRONIC:CARD [id number] 09/09/2020 [id number] / Implanted: Qty: 1 on 04/26/2019 by Samuel Mireles i, MD at [facility] CHAMBER DEVICE Chest RHY:PACING SYS RN [id number] / Description:Pacemaker generator Procedures Procedure Name Priority Date/Time Associated Comments Diagnosis POCT-GLUCOSE METER Routine 03/01/2020 8:53 Resul ts for this AM CDT procedure are i n the results section. CBC W/PLT COUNT & AUTO Routine 03/01/2020 5:01 R esults for this DIFFERENTIAL AM CDT procedure are i n the results section. CBC W/PLT COUNT & AUTO Routine 03/01/2020 5:01 R esults for this DIFFERENTIAL AM CDT procedure are i n the results section. TROPONIN I Routine 03/01/2020 4:57 Results for this AM CDT procedure are i n the results section. PREPARE LEUKO-REDUCED STAT 02/29/2020 11:54 Re sults for this PLATELETS PM CDT procedure are i n the results section. POCT-GLUCOSE METER Routine 02/29/2020 9:43 Resul ts for this PM CDT procedure are i n the results section. POCT-GLUCOSE METER Routine 02/29/2020 6:01 Resul ts for this PM CDT procedure are i n the results section. HEMOGLOBIN A1C Routine 02/29/2020 5:55 Results f or this PM CDT procedure are i n the results section. POCT-GLUCOSE METER Routine 02/29/2020 11:26 Resul ts for this AM CDT procedure are i n the results section. POCT-GLUCOSE METER Routine 02/29/2020 8:38 Resul ts for this AM CDT procedure are i n the results section. CT BRAIN WITHOUT IV Routine 02/29/2020 5:45 Resu lts for this CONTRAST AM CDT procedure are i n the results section. CBC W/PLT COUNT & AUTO Routine 02/29/2020 4:29 R esults for this DIFFERENTIAL AM CDT procedure are i n the results section. COMPREHENSIVE Routine 02/29/2020 4:29 Results fo r this METABOLIC PANEL AM CDT procedure ar e in the results section. CBC W/PLT COUNT & AUTO Routine 02/29/2020 4:29 R esults for this DIFFERENTIAL AM CDT procedure are i n the results section. POTASSIUM Routine 02/28/2020 10:26 Results for this PM CDT procedure are i n the results section. POCT-GLUCOSE METER Routine 02/28/2020 4:47 Resul ts for this PM CDT procedure are i n the results section. MAGNESIUM Routine 02/28/2020 2:36 Results for this PM CDT procedure are i n the results section. POTASSIUM Routine 02/28/2020 2:36 Results for this PM CDT procedure are i n the results section. POCT-GLUCOSE METER Routine 02/28/2020 7:27 Resul ts for this AM CDT procedure are i n the results section. CBC W/PLT COUNT & AUTO Routine 02/28/2020 5:39 R esults for this DIFFERENTIAL AM CDT procedure are i n the results section. MAGNESIUM Routine 02/28/2020 5:39 Results for this AM CDT procedure are i n the results section. PHOSPHORUS Routine 02/28/2020 5:39 Results for this AM CDT procedure are i n the results section. COMPREHENSIVE Routine 02/28/2020 5:39 Results fo r this METABOLIC PANEL AM CDT procedure ar e in the results section. CBC W/PLT COUNT & AUTO Routine 02/28/2020 5:39 R esults for this DIFFERENTIAL AM CDT procedure are i n the results section. TROPONIN I Routine 02/28/2020 5:39 Results for this AM CDT procedure are i n the results section. SARS-COV2/RT-PCR ([facility] Routine 02/28/2020 5:39 R esults for this & REF LABS) AM CDT procedure are i n the results section. TRANSFUSE Routine 02/28/2020 2:39 LEUKO-REDUCED AM CDT PLATELETS POCT-GLUCOSE METER Routine 02/28/2020 2:32 Resul ts for this AM CDT procedure are i n the results section. CT BRAIN WITHOUT IV STAT 02/28/2020 1:59 Resu lts for this CONTRAST AM CDT procedure are i n the results section. CBC W/PLT COUNT & AUTO Routine 02/27/2020 10:55 R esults for this DIFFERENTIAL PM CDT procedure are i n the results section. TYPE AND SCREEN, STAT 02/27/2020 10:55 Results for this AUTOMATED PM CDT procedure are i n the results section. APTT Routine 02/27/2020 10:55 Results for this PM CDT procedure are i n the results section. HEPATIC FUNCTION PANEL Routine 02/27/2020 10:55 R esults for this PM CDT procedure are i n the results section. COMPREHENSIVE Routine 02/27/2020 10:55 Results fo r this METABOLIC PANEL PM CDT procedure ar e in the results section. FIBRINOGEN Routine 02/27/2020 10:55 Results for this PM CDT procedure are i n the results section. PROTHROMBIN TIME/INR Routine 02/27/2020 10:55 Res ults for this PM CDT procedure are i n the results section. CBC W/PLT COUNT & AUTO Routine 02/27/2020 10:55 R esults for this DIFFERENTIAL PM CDT procedure are i n the results section. REPORT OF PROCEDURE - 02/27/2020 Result s for this ENDOSCOPY SCAN procedure are in the results section. ARRYTHMIA IMPLANT 05/03/2019 12:40 REPORT - SCAN PM ARTIFICIAL BREAST FABRICATOR RHYTHM STRIP - SCAN 05/01/2019 11:22 AM ARTIFICIAL BREAST FABRICATOR CARDIAC CATH REPORT - 04/30/2019 2:11 SCAN PM ARTIFICIAL BREAST FABRICATOR CARDIAC CATH REPORT - 04/30/2019 2:11 SCAN PM ARTIFICIAL BREAST FABRICATOR ARRYTHMIA IMPLANT 04/30/2019 2:11 REPORT - SCAN PM ARTIFICIAL BREAST FABRICATOR RHYTHM STRIP - SCAN 04/30/2019 2:11 PM ARTIFICIAL BREAST FABRICATOR RHYTHM STRIP - SCAN 04/30/2019 9:00 AM ARTIFICIAL BREAST FABRICATOR RHYTHM STRIP - SCAN 04/30/2019 9:00 AM ARTIFICIAL BREAST FABRICATOR POCT-GLUCOSE METER Routine 04/28/2019 12:23 Resul ts for this PM ARTIFICIAL BREAST FABRICATOR procedure are i n the results section. POCT-GLUCOSE METER Routine 04/28/2019 8:15 Resul ts for this AM ARTIFICIAL BREAST FABRICATOR procedure are i n the results section. ECG 12-LEAD Routine 04/28/2019 7:01 AM ARTIFICIAL BREAST FABRICATOR Procedure Note - Interface, External Ris In - 04/28/2019 7:01 AM ARTIFICIAL BREAST FABRICATOR Ventricular Rate 75 BPM Atrial Rate 75 BPM P-R Interval 150 ms QRS Duration 142 ms Q-T Interval 416 ms QTC Calculation(Bazett) 464 ms P [place] 54 degrees R [place] -44 degrees T [place] 108 degrees Normal sinus rhythm Left axis deviation Left bundle branch block Abnormal ECG When compared with ECG of 07:00, QRS axis Shifted left ECG 12-LEAD Routine 04/28/2019 7:01 AM ARTIFICIAL BREAST FABRICATOR Resu lts for this procedure are i n the results section . BUN AND CREATININE W/RATIO Routine 04/28/2019 4:46 AM ARTIFICIAL BREAST FABRICATOR Results for this procedure are i n the results section . MAGNESIUM Routine 04/28/2019 4:46 AM ARTIFICIAL BREAST FABRICATOR Resu lts for this procedure are i n the results section . BASIC METABOLIC PANEL (7) Routine 04/28/2019 4:46 AM ARTIFICIAL BREAST FABRICATOR Results for this procedure are i n the results section . CBC (HEMOGRAM ONLY) Routine 04/28/2019 4:46 AM ARTIFICIAL BREAST FABRICATOR Results for this procedure are i n the results section . POCT-GLUCOSE METER Routine 04/27/2019 9:50 PM ARTIFICIAL BREAST FABRICATOR Results for this procedure are i n the results section . POCT-GLUCOSE METER Routine 04/27/2019 4:58 PM ARTIFICIAL BREAST FABRICATOR Results for this procedure are i n the results section . POCT-GLUCOSE METER Routine 04/27/2019 11:51 AM ARTIFICIAL BREAST FABRICATOR Results for this procedure are i n the results section . POCT-GLUCOSE METER Routine 04/27/2019 7:52 AM ARTIFICIAL BREAST FABRICATOR Results for this procedure are i n the results section . XR CHEST 1 VIEW Routine 04/27/2019 7:13 AM ARTIFICIAL BREAST FABRICATOR R esults for this PORTABLE/BEDSIDE procedure a re in the results section . ECG 12-LEAD Routine 04/27/2019 7:00 AM ARTIFICIAL BREAST FABRICATOR Procedure Note - Interface, External Ris In - 04/27/2019 7:00 AM ARTIFICIAL BREAST FABRICATOR Ventricular Rate 63 BPM Atrial Rate 63 BPM P-R Interval 164 ms QRS Duration 132 ms Q-T Interval 432 ms QTC Calculation(Bazett) 442 ms P [place] 52 degrees R [place] -3 degrees T [place] 150 degrees Normal sinus rhythm Left bundle branch block Abnormal ECG When compared with ECG of 00:20, Sinus rhythm has replaced El ectronic ventricular pacemaker ECG 12-LEAD Routine 04/27/2019 7:00 AM ARTIFICIAL BREAST FABRICATOR Resu lts for this procedure are i n the results section . ISLET CELL AB TITER Routine 04/27/2019 5:48 AM ARTIFICIAL BREAST FABRICATOR Results for this procedure are i n the results section . ISLET CELL AB SCREEN Routine 04/27/2019 5:48 AM ARTIFICIAL BREAST FABRICATOR Results for this procedure are i n the results section . ISLET CELL AB SCR Routine 04/27/2019 5:48 AM ARTIFICIAL BREAST FABRICATOR Results for this procedure are i n the results section . MERRICK-65 Routine 04/27/2019 5:48 AM ARTIFICIAL BREAST FABRICATOR Resu lts for this procedure are i n the results section . BUN AND CREATININE W/RATIO Routine 04/27/2019 5:48 AM ARTIFICIAL BREAST FABRICATOR Results for this procedure are i n the results section . MAGNESIUM Routine 04/27/2019 5:48 AM ARTIFICIAL BREAST FABRICATOR Resu lts for this procedure are i n the results section . BASIC METABOLIC PANEL (7) Routine 04/27/2019 5:48 AM ARTIFICIAL BREAST FABRICATOR Results for this procedure are i n the results section . CBC (HEMOGRAM ONLY) Routine 04/27/2019 5:48 AM ARTIFICIAL BREAST FABRICATOR Results for this procedure are i n the results section . ECG 12-LEAD Routine 04/27/2019 12:20 AM ARTIFICIAL BREAST FABRICATOR Procedure Note - Interface, External Ris In - 04/27/2019 5:53 AM ARTIFICIAL BREAST FABRICATOR Ventricular Rate 60 BPM Atrial Rate 60 BPM P-R Interval 186 ms QRS Duration 164 ms Q-T Interval 498 ms QTC Calculation(Bazett) 498 ms P [place] 96 degrees R [place] -76 degrees T [place] 67 degrees AV dual-paced rhythm Abnormal ECG When compared with ECG of 11:37, No significant change was fo und ECG 12-LEAD Routine 04/27/2019 12:20 AM ARTIFICIAL BREAST FABRICATOR Resu lts for this procedure are i n the results section . ECHOCARDIOGRAM REPORT - SCAN 04/26/2019 9:21 PM ARTIFICIAL BREAST FABRICATOR POCT-GLUCOSE METER Routine 04/26/2019 9:11 PM ARTIFICIAL BREAST FABRICATOR Results for this procedure are i n the results section . POCT-GLUCOSE METER Routine 04/26/2019 6:02 PM ARTIFICIAL BREAST FABRICATOR Results for this procedure are i n the results section . XR CHEST 1 VIEW Routine 04/26/2019 12:39 PM ARTIFICIAL BREAST FABRICATOR R esults for this PORTABLE/BEDSIDE procedure a re in the results section . ECG 12-LEAD Routine 04/26/2019 11:37 AM ARTIFICIAL BREAST FABRICATOR Procedure Note - Interface, External Ris In - 04/26/2019 10:52 PM ARTIFICIAL BREAST FABRICATOR Ventricular Rate 60 BPM Atrial Rate 105 BPM QRS Duration 156 ms Q-T Interval 520 ms QTC Calculation(Bazett) 520 ms P [place] 12 degrees R [place] -76 degrees T [place] 68 degrees AV dual-paced rhythm Abnormal ECG When compared with ECG of 08:09, Sinus rhythm is no longer wi th complete heart block Vent. rate has decreased BY 4 BPM ECG 12-LEAD Routine 04/26/2019 11:37 AM Results for this ARTIFICIAL BREAST FABRICATOR procedure are i n the results section. POCT-GLUCOSE METER Routine 04/26/2019 10:28 AM Re sults for this ARTIFICIAL BREAST FABRICATOR procedure are i n the results section. PACEMAKER GENERATOR - 04/26/2019 7:26 AM CHB (complet e INSERTION W/ EXISTING ARTIFICIAL BREAST FABRICATOR heart block) LEAD (SINGLE) (HCC) CBC (HEMOGRAM ONLY) Routine 04/26/2019 3:50 AM R esults for this ARTIFICIAL BREAST FABRICATOR procedure are i n the results section. MAGNESIUM Routine 04/26/2019 3:49 AM Results for this ARTIFICIAL BREAST FABRICATOR procedure are i n the results section. BASIC METABOLIC PANEL Routine 04/26/2019 3:49 AM Results for this (7) ARTIFICIAL BREAST FABRICATOR procedure are i n the results section. POCT-GLUCOSE METER Routine 04/25/2019 9:43 PM Re sults for this ARTIFICIAL BREAST FABRICATOR procedure are i n the results section. TRANSFUSION SERVICE 04/25/2019 6:03 PM REPORT - SCAN ARTIFICIAL BREAST FABRICATOR TROPONIN I Routine 04/25/2019 4:14 PM Results for this ARTIFICIAL BREAST FABRICATOR procedure are i n the results section. POCT-GLUCOSE METER Routine 04/25/2019 11:44 AM Re sults for this ARTIFICIAL BREAST FABRICATOR procedure are i n the results section. CREATINE KINASE (CK) Add-On 04/25/2019 9:11 AM Results for this ARTIFICIAL BREAST FABRICATOR procedure are i n the results section. TROPONIN I Routine 04/25/2019 9:11 AM Results for this ARTIFICIAL BREAST FABRICATOR procedure are i n the results section. ECG 12-LEAD Routine 04/25/2019 8:09 AM Results for this ARTIFICIAL BREAST FABRICATOR procedure are i n the results section. ECG 12-LEAD Routine 04/25/2019 8:09 AM ARTIFICIAL BREAST FABRICATOR Procedure Note - Interface, External Ris In - 04/25/2019 7:15 AM ARTIFICIAL BREAST FABRICATOR Ventricular Rate 64 BPM Atrial Rate 80 BPM QRS Duration 174 ms Q-T Interval 510 ms QTC Calculation(Bazett) 526 ms P [place] 62 degrees R [place] -44 degrees T [place] 109 degrees Sinus rhythm with complete h eart block and Ventricular-paced rhythm with occasional Premature ventricular complexes Abnormal ECG When compared with ECG of 01:46, Electronic ventricular pacem itzel has replaced Sinus rhythm POCT-GLUCOSE METER Routine 04/25/2019 8:07 AM ARTIFICIAL BREAST FABRICATOR Results for this procedure are i n the results section . APTT Routine 04/25/2019 5:40 AM ARTIFICIAL BREAST FABRICATOR Resu lts for this procedure are i n the results section . TROPONIN I Routine 04/25/2019 5:40 AM ARTIFICIAL BREAST FABRICATOR Resu lts for this procedure are i n the results section . MAGNESIUM Routine 04/25/2019 5:40 AM ARTIFICIAL BREAST FABRICATOR Resu lts for this procedure are i n the results section . BASIC METABOLIC PANEL (7) Routine 04/25/2019 5:40 AM ARTIFICIAL BREAST FABRICATOR Results for this procedure are i n the results section . CBC (HEMOGRAM ONLY) Routine 04/25/2019 5:40 AM ARTIFICIAL BREAST FABRICATOR Results for this procedure are i n the results section . LIPID PANEL Routine 04/25/2019 5:40 AM ARTIFICIAL BREAST FABRICATOR Resu lts for this procedure are i n the results section . ECG 12-LEAD Routine 04/25/2019 1:46 AM ARTIFICIAL BREAST FABRICATOR Procedure Note - Interface, External Ris In - 04/25/2019 12:50 AM ARTIFICIAL BREAST FABRICATOR Ventricular Rate 78 BPM Atrial Rate 78 BPM P-R Interval 152 ms QRS Duration 140 ms Q-T Interval 454 ms QTC Calculation(Bazett) 517 ms P [place] 44 degrees R [place] 1 degrees T [place] 114 degrees Normal sinus rhythm Left bundle branch block Abnormal ECG When compared with ECG of 23:11, Sinus rhythm is no longer wi th ventricular escape complexes Vent. rate has increased BY 32 BPM QT has lengthened ECG 12-LEAD STAT 04/25/2019 1:46 AM ARTIFICIAL BREAST FABRICATOR Resu lts for this procedure are i n the results section . 2D ECHO W/ DOPPLER Routine 04/25/2019 1:23 AM ARTIFICIAL BREAST FABRICATOR Results for this (CW/PW/COLOR) procedure are in the results section . XR CHEST 1 VIEW STAT 04/25/2019 12:16 AM ARTIFICIAL BREAST FABRICATOR R esults for this PORTABLE/BEDSIDE procedure a re in the results section . TROPONIN I STAT 04/24/2019 11:20 PM ARTIFICIAL BREAST FABRICATOR Resu lts for this procedure are i n the results section . LACTIC ACID, VENOUS STAT 04/24/2019 11:20 PM ARTIFICIAL BREAST FABRICATOR Results for this procedure are i n the results section . PT/APTT STAT 04/24/2019 11:20 PM ARTIFICIAL BREAST FABRICATOR Resu lts for this procedure are i n the results section . PHOSPHORUS STAT 04/24/2019 11:20 PM ARTIFICIAL BREAST FABRICATOR Resu lts for this procedure are i n the results section . MAGNESIUM STAT 04/24/2019 11:20 PM ARTIFICIAL BREAST FABRICATOR Resu lts for this procedure are i n the results section . COMPREHENSIVE METABOLIC STAT 04/24/2019 11:20 PM ARTIFICIAL BREAST FABRICATOR Results for this PANEL procedure are i n the results section . APTT Routine 04/24/2019 11:20 PM ARTIFICIAL BREAST FABRICATOR Resu lts for this procedure are i n the results section . PLATELET COUNT Routine 04/24/2019 11:20 PM ARTIFICIAL BREAST FABRICATOR Re sults for this procedure are i n the results section . ECG 12-LEAD Routine 04/24/2019 11:11 PM ARTIFICIAL BREAST FABRICATOR Procedure Note - Interface, External Ris In - 04/24/2019 11:47 PM ARTIFICIAL BREAST FABRICATOR Ventricular Rate 46 BPM Atrial Rate 46 BPM P-R Interval 146 ms QRS Duration 134 ms Q-T Interval 472 ms QTC Calculation(Bazett) 413 ms P [place] 77 degrees R [place] 25 degrees T [place] 96 degrees Sinus bradycardia with marke d sinus arrhythmia with ventricular escape complexes Left bundle branch block Abnormal ECG When compared with ECG of 23:10, Sinus rhythm has replaced At rial fibrillation ST no longer depressed in An terior leads ECG 12-LEAD Routine 04/24/2019 11:10 PM ARTIFICIAL BREAST FABRICATOR Procedure Note - Interface, External Ris In - 04/24/2019 11:47 PM ARTIFICIAL BREAST FABRICATOR Ventricular Rate 56 BPM Atrial Rate 22 BPM QRS Duration 142 ms Q-T Interval 468 ms QTC Calculation(Bazett) 451 ms R [place] 0 degrees T [place] 108 degrees Atrial fibrillation with slo w ventricular response with premature ventricular or aberrantly conducted complexes Left bundle branch block Abnormal ECG When compared with ECG of 23:08, Previous ECG has undetermine d rhythm, needs review ST now depressed in Anterior leads QT has shortened POCT-GLUCOSE METER Routine 04/24/2019 11:10 PM ARTIFICIAL BREAST FABRICATOR ECG 12-LEAD Routine 04/24/2019 11:08 PM ARTIFICIAL BREAST FABRICATOR Procedure Note - Interface, External Ris In - 04/24/2019 11:47 PM ARTIFICIAL BREAST FABRICATOR Ventricular Rate 93 BPM Atrial Rate 96 BPM P-R Interval 152 ms QRS Duration 134 ms Q-T Interval 452 ms QTC Calculation(Bazett) 561 ms P [place] 77 degrees R [place] 24 degrees T [place] 101 degrees Poor data quality, interp retation may be adversely affected Undetermined rhythm Left bundle branch block Abnormal ECG When compared with ECG of 23:07, Current undetermined rhythm precludes rhythm comparison, needs review ECG 12-LEAD Routine 04/24/2019 11:07 PM ARTIFICIAL BREAST FABRICATOR Procedure Note - Interface, External Ris In - 04/24/2019 11:47 PM ARTIFICIAL BREAST FABRICATOR Ventricular Rate 84 BPM Atrial Rate 84 BPM P-R Interval 132 ms QRS Duration 138 ms Q-T Interval 446 ms QTC Calculation(Bazett) 527 ms P [place] 76 degrees R [place] 36 degrees T [place] 104 degrees Normal sinus rhythm with sin us arrhythmia Left bundle branch block Abnormal ECG When compared with ECG of 23:06, Previous ECG has undetermine d rhythm, needs review Left bundle branch block is now Present Borderline criteria for Ante rior infarct are no longer Present Borderline criteria for Ante rolateral infarct are no longer Present ECG 12-LEAD Routine 04/24/2019 11:06 PM ARTIFICIAL BREAST FABRICATOR Procedure Note - Interface, External Ris In - 04/24/2019 11:47 PM ARTIFICIAL BREAST FABRICATOR Ventricular Rate 102 BPM Atrial Rate 28 BPM QRS Duration 44 ms Q-T Interval 468 ms QTC Calculation(Bazett) 609 ms R [place] 92 degrees T [place] 208 degrees Undetermined rhythm Low voltage QRS Possible Anterolateral infar ct , age undetermined ST & T wave abnormality, 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 ECG 12-LEAD Routine 04/24/2019 11:06 PM ARTIFICIAL BREAST FABRICATOR Procedure Note - Interface, External Ris In - 04/24/2019 11:47 PM ARTIFICIAL BREAST FABRICATOR Ventricular Rate 72 BPM Atrial Rate 72 BPM P-R Interval 152 ms QRS Duration 142 ms Q-T Interval 448 ms QTC Calculation(Bazett) 490 ms P [place] 70 degrees R [place] 36 degrees T [place] 105 degrees Normal sinus rhythm Left bundle branch block Abnormal ECG When compared with ECG of 23:02, Previous ECG has undetermine d rhythm, needs review Left bundle branch block is now Present ECG 12-LEAD Routine 04/24/2019 11:02 PM ARTIFICIAL BREAST FABRICATOR Procedure Note - Interface, External Ris In - 04/24/2019 11:46 PM ARTIFICIAL BREAST FABRICATOR Ventricular Rate 98 BPM Atrial Rate 0 BPM QRS Duration 8 ms Q-T Interval 446 ms QTC Calculation(Bazett) 569 ms R [place] 0 degrees T [place] 90 degrees Poor data quality, interp retation may be adversely affected AGE AND GENDER SPECIFIC E CG ANALYSIS Undetermined rhythm Indeterminate axis Pulmonary disease pattern ST elevation consider inferi or injury or acute infarct Prolonged QT ACUTE VA / STEMI Abnormal ECG When compared with ECG of 22:52, Current undetermined rhythm precludes rhythm comparison, needs review ECG 12-LEAD Routine 04/24/2019 10:52 PM ARTIFICIAL BREAST FABRICATOR Resu lts for this procedure are in the results section . ECG 12-LEAD Routine 04/24/2019 10:52 PM ARTIFICIAL BREAST FABRICATOR Procedure Note - Interface, External Ris In - 04/24/2019 11:46 PM ARTIFICIAL BREAST FABRICATOR Ventricular Rate 41 BPM Atrial Rate 80 BPM QRS Duration 136 ms Q-T Interval 498 ms QTC Calculation(Bazett) 410 ms P [place] 59 degrees R [place] 86 degrees T [place] 73 degrees Sinus rhythm with complete h eart block and Wide QRS rhythm Right bundle branch block Abnormal ECG When compared with ECG of 21:09, Wide QRS rhythm has replaced Sinus rhythm PERIPHERAL VASCULAR REPORT - SCAN 04/24/2019 9:20 PM ARTIFICIAL BREAST FABRICATOR ECG 12-LEAD Routine 04/24/2019 9:09 PM ARTIFICIAL BREAST FABRICATOR Procedure Note - Interface, External Ris In - 04/24/2019 8:12 PM ARTIFICIAL BREAST FABRICATOR Ventricular Rate 41 BPM Atrial Rate 41 BPM QRS Duration 134 ms Q-T Interval 494 ms QTC Calculation(Bazett) 407 ms P [place] 66 degrees R [place] 77 degrees T [place] 83 degrees Marked sinus bradycardia wit h 1st degree A-V block Right bundle branch block Abnormal ECG No previous ECGs available ECG 12-LEAD Routine 04/24/2019 9:09 Results for this PM ARTIFICIAL BREAST FABRICATOR procedure are i n the results section. POCT-ACT Routine 04/24/2019 6:33 Results for this PM ARTIFICIAL BREAST FABRICATOR procedure are i n the results section. TRANSFUSION SERVICE 04/24/2019 6:00 REPORT - SCAN PM ARTIFICIAL BREAST FABRICATOR POCT-ACT Routine 04/24/2019 5:56 Results for this PM ARTIFICIAL BREAST FABRICATOR procedure are i n the results section. POCT-ACT Routine 04/24/2019 5:42 Results for this PM ARTIFICIAL BREAST FABRICATOR procedure are i n the results section. 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 APTT Routine 04/24/2019 12:11 Results for this PM ARTIFICIAL BREAST FABRICATOR procedure are i n the results section. POCT-GLUCOSE METER Routine 04/24/2019 9:48 Resul ts for this AM ARTIFICIAL BREAST FABRICATOR procedure are i n the results section. APTT Routine 04/24/2019 5:53 Results for this AM ARTIFICIAL BREAST FABRICATOR procedure are i n the results section. CAROTID DOPPLER Routine 04/24/2019 5:40 Results for this BILATERAL AM ARTIFICIAL BREAST FABRICATOR procedure are i n the results section. ECG 12-LEAD Routine 04/23/2019 11:47 Results for this PM ARTIFICIAL BREAST FABRICATOR procedure are i n the results section. ECG 12-LEAD Routine 04/23/2019 11:46 Results for this PM ARTIFICIAL BREAST FABRICATOR procedure are i n the results section. ABORH, MANUAL STAT 04/23/2019 11:23 Results fo r this PM ARTIFICIAL BREAST FABRICATOR procedure are i n the results section. CBC W/PLT COUNT & Routine 04/23/2019 10:56 Result s for this AUTO DIFFERENTIAL PM ARTIFICIAL BREAST FABRICATOR procedure are in the results section. TYPE AND SCREEN, Routine 04/23/2019 10:56 Results for this AUTOMATED PM ARTIFICIAL BREAST FABRICATOR procedure are i n the results section. PROTHROMBIN TIME/INR Routine 04/23/2019 10:56 Res ults for this PM ARTIFICIAL BREAST FABRICATOR procedure are i n the results section. APTT Routine 04/23/2019 10:56 Results for this PM ARTIFICIAL BREAST FABRICATOR procedure are i n the results section. APTT Routine 04/23/2019 10:56 Results for this PM ARTIFICIAL BREAST FABRICATOR procedure are i n the results section. HEMOGLOBIN A1C AP Routine 04/23/2019 10:56 Results f or this PM ARTIFICIAL BREAST FABRICATOR procedure are i n the results section. BASIC METABOLIC Routine 04/23/2019 10:56 Results for this PANEL (7) PM ARTIFICIAL BREAST FABRICATOR procedure are i n the results section. CBC W/PLT COUNT & Routine 04/23/2019 10:56 Result s for this AUTO DIFFERENTIAL PM ARTIFICIAL BREAST FABRICATOR procedure are in the results section. POCT-GLUCOSE METER Routine 04/23/2019 10:47 Resul ts for this PM ARTIFICIAL BREAST FABRICATOR procedure are i n the results section. after 03/13/2019 Results POC-Glucose meter (03/01/2020 8:53 AM CDT)Only the most recent of24 results within the time period is included. POC-Glucose Meter 162 (H) 70 - 110 mg/dL [facility] Comment: [facility] : TESTED AT [facility] [address], [address] CENTER : Music Video Director/Credit Assistant ID = [id number] for BLOOMJENNY PASTOR Specimen Blood Performing Organization Address City/State/Zipcode Phone Number [facility] [address] [place] [address] CENTER CBC with platelet count + automated diff (03/01/2020 5:01 AM CDT)Only the most recent of5 resultswithin the time period is included. Pathologist Sig nature WBC 12.7 (H) 3.5 - 10.5 [facility] RBC 4.41 3.93 - 5.22 [facility] M/[facility] Hemoglobin 12.5 11.2 - 15.7 [facility] Hematocrit 38.7 34.1 - 44.9 % [facility] MCV 87.8 79.4 - 94.8 fL [facility] MCH 28.3 25.6 - 32.2 pg [facility] MCHC 32.3 32.2 - 35.5 [facility] RDW 13.7 11.7 - 14.4 % [facility] Platelets 407 150 - 450 K/CU [facility] MPV 9.8 9.4 - 12.3 fL [facility] nRBC 0 0 - 0 /100 WBC [facility] % Neutros 70 % [facility] % Lymphs 23 % [facility] % Monos 6 % [facility] % Eos 1 % [facility] % Baso 0 % [facility] # Neutros 8.81 (H) 1.56 - 6.13 [facility] # Lymphs 2.87 1.18 - 3.74 [facility] # Monos 0.81 (H) 0.24 - 0.[address] [facility] K/L [facility] # Eos 0.12 0.04 - 0.36 [facility] K/L [facility] # Baso 0.03 0.01 - 0.08 [facility] K/L [facility] Immature 0 0 - 1 % [facility] Granulocytes-Relative [facility] Specimen Blood Performing Organization Address City/[facility] Cent[facility] Phone Number [address] [address] [place] Troponin I (03/01/2020 4:57 AM CDT)Only the most recent of6 resultswithin the time period is included. Pathologist Sig [facility] Troponin I <0.01 0.00 - 0.03 ng/mL [facility] Specimen Blood Narrative Performed At Troponin I (TnI) levels must be interpreted [facility] in the context of the presenting symptoms and the clinical findings. Elevated TnI levels indicate myocardial damage, but are not specific for ischemic heart disease. Elevated TnI levels are seen in patients with other cardiac conditions (including myocarditis and congestive heart failure), and slight TnI elevations occur in patients with other conditions, including sepsis, renal failure, acidosis, acute neurological disease, and persistent tachyarrhythmia. Music Video Director ID - EDASI Performing Organization Address [facility] Phone Number [address] [address] [place] Prepare Leuko-Red PLT (02/29/2020 11:54 PM CDT) Pathologist Sig nature Unit ABO O Pos SAFETRACE TX UNIT NUMBER [id number] SAFETRACE TX Status TX_TIMEINCHART SAFETRACE TX Blood Bank Product PLATELETS SAFETRACE TX PRODUCT CODE [id number] [place] Specimen Blood Performing Organization Address [facility] Phone Number SAFETRACE [place] Hemoglobin A1c (02/29/2020 5:55 PM CDT)Only the most recent of2 resultswithin the time period is included. Pathologist Sig [facility] Hemoglobin A1C 8.2 (H) 4.3 - 6.1 % [facility] Specimen Blood - Entire left upper arm (body stru cture) Performing Organization Address City/State/Zipcode Phone Number [facility] [address] [place] [address] brain without IV contrast (02/29/2020 5:45 AM CDT)Only the most recent of2 resultswithin the time period is included. Specimen Narrative Performed At FINAL REPORT GE RIS CT, BRAIN, WITHOUT CONTRAST CLINICAL INDICATION: Cerebral hemorrha ge suspected COMPARISON: February 28, 2020 TECHNIQUE: Noncontrast axial CT imagin g of the brain and skull. DOSE REDUCTION: Dose modulation, iterati ve reconstruction, and/or weight-based adjustment of the mA/kV was utilized to reduce the radiation dose to as low as reasonably a chievable. FINDINGS: Inferior falcine and tentorial extension of previously described right hemispheric subdural hematoma are unchanged. There is contouring of the underlying brain paren chyma over the right hemisphere without visible edema. No her niation has developed. Bowing of the septum pellucidum is present, how ever there is no ventricular entrapment. The anna-white distinction i s preserved. Osseous structures are intact. IMPRESSION: Grossly stable intracranial appearance w hen compared to February 28, 2020 Signed: JR Goldman Robert MD Report Verified Date/Time: 02/29/2020 06:57:51 Reading Location: [facility] [address] [place] [address] Procedure Note Interface, External Ris In - 02/29/2020 6:59 AM CDT FINAL REPORT CT, BRAIN, WITHOUT CONTRAST CLINICAL INDICATION: Cerebral hemorrhag e suspected COMPARISON: February 28, 2020 TECHNIQUE: Noncontrast axial CT imaging of the brain and skull. DOSE REDUCTION: Dose modulation, iterati ve reconstruction, and/or weight-based adjustment of the mA/kV was utilized to reduce the radiation dose to as low as reasonably a chievable. FINDINGS: Inferior falcine and tentorial extension of previously described right hemispheric subdural hematoma are unchanged. There is contouring of the underlying brain paren chyma over the right hemisphere without visible edema. No her niation has developed. Bowing of the septum pellucidum is present, how ever there is no ventricular entrapment. The anna-white distinction i s preserved. Osseous structures are intact. IMPRESSION: Grossly stable intracranial appearance w hen compared to February 28, 2020 Signed: JR Susi, Connie BUCKNER Report Verified Date/Time: 02/29/2020 0 6:57:51 Reading Location: [facility] B1 C013V Neuro [place] [facility] Room Performing Organization Address City/State/Zipcode Phone Number GE RIS Comprehensive metabolic panel (02/29/2020 4:29 AM CDT)Only the most recent of4 resultswithin the time period is included. Protein, Total 6.9 6.0 - 8.3 [facility] gm/dL [facility] Albumin 3.7 3.5 - 5.0 [facility] g/dL [facility] Alkaline 135 40 - 150 U/L [facility] Phosphatase [facility] Total Bilirubin 0.5 0.2 - 1.2 [facility] mg/dL [facility] Sodium 138 136 - 145 [facility] meq/L [facility] Potassium 3.8 3.5 - 5.1 [facility] meq/L [facility] Chloride 104 98 - 107 [facility] meq/L [facility] CO2 24 22 - 29 meq/L [facility] BUN 7 7 - 21 mg/dL [facility] Creatinine 0.66 0.57 - 1.25 [facility] mg/dL [facility] Glucose 183 (H) 70 - 105 [facility] mg/dL [facility] Calcium 8.0 (L) 8.4 - 10.2 [facility] mg/dL [facility] AST 14 5 - 34 U/L [facility] ALT 16 6 - 55 U/L [facility] EGFR 92Comment: mL/min/1.73 [facility] ESTIMATED GFR IS sq m [facility] NOT ACCURATE MEDICAL CENTER CREATININE CLEARANCE IN PREDICTING GLOMERULAR FILTRATION RATE. ESTIMATED GFR IS NOT APPLICABLE FOR DIALYSIS PATIENTS. Specimen Blood Narrative Performed At Music Video Director ID - EDISRA [facility] Performing Organization Address [facility] Phone Number [address] [address] CENTER Potassium (02/28/2020 10:26 PM CDT)Only the most recent of2 resultswithin the time period is included. Pathologist Sig nature Potassium 3.9 3.5 - 5.1 meq/L [facility] Specimen Blood Narrative Performed At Music Video Director ID - DB [facility] Performing Organization Address [facility] Phone Number [address] [address] CENTER Magnesium (02/28/2020 2:36 PM CDT)Only the most recent of7 resultswithin the time period is included. Pathologist Sig nature Magnesium 2.2Comment: Specimen 1.6 - 2.6 mg/dL [facility] slightly hemolyzed [facility] Specimen Blood Narrative Performed At Music Video Director ID - BRIANNA [facility] Performing Organization Address [facility] Phone Number [address] [address] CENTER SARS-CoV2/RT-PCR (Asymptomatic ONLY) (02/28/2020 5:39 AM CDT) SARS-COV2/RT-PCR Negative Not Detected, [facility] Negative, See [facility] external report CENTER for linked test SARS-COV-2 [facility] CARRI [facility] PERFORMING LAB [facility] Specimen Other - Nasopharyngeal wall structure (b dagmar structure) Narrative Performed At Negative result for this test determines that [facility] SARS-CoV-2 RNA was not present in the specimen above the Limit of Detection (LOD). However, Negative results do not preclude SARS-CoV-2 infection and should not be used as the sole basis for treatment or patient management decisions. Negative results must be combined with clinical observations, patient history, and epidemiological information. A false negative result may occur if a specimen is improperly collected, transported or handled. A false negative result should be considered if patient's recent exposures or clinical presentation indicate that COVID-19 (SARS-CoV-2) is likely and diagnostic tests for other causes of illness are negative. Re-testing should be considered in cases of suspected false negatives. The limit of detection for this assay is 800 copies/mL. This SARS CoV-2 test is a real-time RT-PCR test intended for the qualitative detection of nucleic acid from SARS-CoV-2 in a nasopharyngeal swab specimen collected from individuals suspected of COVID-19 by their healthcare provider. This test has not been Food and Drug Administration (FDA) cleared or approved. This is a modified version of an approved Emergency Use Authorization (EUA) and is in the process of review by the FDA. Once authorized by the FDA, the issued EUA will be effective until the declaration that circumstances exist justifying the authorization of the emergency use of in vitro diagnostic tests for detection and/or diagnosis of COVID-19 is terminated under Section 564(b)(2) of the Act or the EUA is revoked under Section 564(g) of the Act. Fact Sheet for Healthcare Providers: https://www.My Own Med/sites/default/files/pro duct/documents/Fact_Sheet_HC_Providers_Lyra_SA RS-CoV-2.pdf Fact Sheet for Healthcare Patients: https://www.[employer]/sites/default/files/pro duct/documents/Fact_Sheet_Patients_Lyra_SARS-C oV-2.pdf Performing Laboratory: [address] [place] [address] Performing Organization Address City/State/Zipcode Phone Number [place] [phone] CENTER Phosphorus (02/28/2020 5:39 AM CDT)Only the most recent of2 resultswithin the time period is included. Pathologist Sig nature Phosphorus 3.2 2.3 - 4.7 mg/dL [facility] Specimen Blood - Entire right upper arm (body str ucture) Narrative Performed At Music Video Director WERNER - BRIANNA [facility] Once on admission and Daily AM afterwards Performing Organization Address City/[facility]/Zipcode Phone Number [address] [address] CENTER Transfuse Leuko-Red PLT (02/28/2020 2:39 AM CDT)Type and screen, automated (02/27/2020 10:55 PM CDT)Only the most recent of2 resultswithin the time period is included. Pathologist Sig nature ABO/RH AUTOMATED O POSITIVE [facility] Ab Scrn NEGATIVE [facility] Specimen Blood Performing Organization Address City/[facility] Centercode Phone Number [address] [address] aPTT (02/27/2020 10:55 PM CDT)Only the most recent of7 resultswithin the time period is included. Pathologist Sig nature PTT 26.2 22.5 - 36.0 seconds [facility] Specimen Blood Performing Organization Address City/[facility]/Zipcode Phone Number [address] [address] CENTER Prothrombin time/INR (02/27/2020 10:55 PM CDT)Only the most recent of2 results within the time period is included. Pathologist Sig nature Protime 13.3 11.9 - 14.2 seconds [facility] INR 1.04 <=5.90 [facility] Specimen Blood Narrative Performed At Effective 10/10/2018: PT Reference Range [facility] Change New: 11.9-14.2 Previous: 11.7-14.7 RECOMMENDED COUMADIN/WARFARIN INR THERAPY RANGES STANDARD DOSE: 2.0-3.0 Includes: PROPHYLAXIS for venous thrombosis, systemic embolization; TREATMENT for venous thrombosis and/or pulmonary embolus. HIGH RISK: Target INR is 2.5-3.5 for patients wiht mechanical heart valves. Performing Organization Address City/[facility] Cent[facility]ode Phone Number [address] [address] [place] Fibrinogen (02/27/2020 10:55 PM CDT) Pathologist Sig nature Fibrinogen 413 225 - 434 mg/dl [facility] Specimen Blood Performing Organization Address [facility] Phone Number [address] [address] [place] Hepatic function panel (02/27/2020 10:55 PM CDT) Pathologist Sig nature Protein, Total 7.5 6.0 - 8.3 gm/dL [facility] Albumin 4.1 3.5 - 5.0 g/dL [facility] Total Bilirubin 0.4 0.2 - 1.2 mg/dL [facility] Bilirubin, Direct 0.3 0.1 - 0.5 mg/dL [facility] Alkaline Phosphatase 167 (H) 40 - 150 U/L [facility] AST 15 5 - 34 U/L [facility] ALT 16 6 - 55 U/L [facility] Specimen Blood Narrative Performed At Music Video Director ID - PIAYA L [facility] Performing Organization Address [facility] Phone Number [address] [address] [place] EKG-SCANNED (02/27/2020) Narrative Performed At This result has an attachment that is no t available. Ordered by an unspecified provider. ARRYTHMIA IMPLANT REPORT - SCAN (05/03/2019 12:40 PM ARTIFICIAL BREAST FABRICATOR)Only the most recent of 2 resultswithin the time period is included. Narrative Performed At This result has an attachment that is no t available. RHYTHM STRIP - SCAN (05/01/2019 11:22 AM ARTIFICIAL BREAST FABRICATOR)Only the most recent of4 results within the time period is included. Narrative Performed At This result has an attachment that is no t available. CARDIAC CATH REPORT - SCAN (04/30/2019 2:11 PM ARTIFICIAL BREAST FABRICATOR) Narrative Performed At This result has an attachment that is no t available. CARDIAC CATH REPORT - SCAN (04/30/2019 2:11 PM ARTIFICIAL BREAST FABRICATOR) Narrative Performed At This result has an attachment that is no t available. ECG 12 lead (04/28/2019 7:01 AM ARTIFICIAL BREAST FABRICATOR)Only the most recent of11 resultswithin the time period is included. Specimen Narrative Performed At Ventricular Rate 75 BPM GE MUSE Atrial Rate 75 BPM P-R Interval 150 ms QRS Duration 142 ms Q-T Interval 416 ms QTC Calculation(Bazett) 464 ms P [place] 54 degrees R [place] -44 degrees T [place] 108 degrees Normal sinus rhythm Left axis deviation Left bundle branch block Abnormal ECG When compared with ECG of 27-APR-2019 07 :00, QRS axis Shifted left Confirmed by MD ALICIA, SAVIAT ([id number]) on 04/28/2019 2 :36:47 PM Procedure Note Interface, External Ris In - 04/28/2019 2:36 PM ARTIFICIAL BREAST FABRICATOR Ventricular Rate 75 BPM Atrial Rate 75 BPM P-R Interval 150 ms QRS Duration 142 ms Q-T Interval 416 ms QTC Calculation(Bazett) 464 ms P [place] 54 degrees R [place] -44 degrees T [place] 108 degrees Normal sinus rhythm Left axis deviation Left bundle branch block Abnormal ECG When compared with ECG of 27-APR-2019 07 :00, QRS axis Shifted left Confirmed by MD ALICIA, SAVITA ([id number]) o n 04/28/2019 2:36:47 PM Performing Organization Address City/[facility] Phone Number [employer] MUSE BUN and Creatinine (04/28/2019 4:46 AM ARTIFICIAL BREAST FABRICATOR)Only the most recent of2 results within the time period is included. BUN 12 7 - 21 mg/dL [facility] Creatinine 0.61 0.57 - 1.25 [facility] mg/dL [facility] EGFR 101Comment: mL/min/1.73 sq [facility] ESTIMATED GFR IS NOT [facility] ACCURATE CENTER CREATININE CLEARANCE IN PREDICTING GLOMERULAR FILTRATION RATE. ESTIMATED GFR IS NOT APPLICABLE FOR DIALYSIS PATIENTS. Specimen Blood Performing Organization Address City/[facility] Cent[facility]ode Phone Number [address] [place] [address] [place] CBC (Hemogram only) (04/28/2019 4:46 AM ARTIFICIAL BREAST FABRICATOR)Only the most recent of4 results within the time period is included. Pathologist Sig nature WBC 13.4 (H) 3.5 - 10.5 K/L [facility] RBC 3.66 (L) 3.93 - 5.22 M/L [facility] Hemoglobin 10.6 (L) 11.2 - 15.7 GM/DL [facility] Hematocrit 32.9 (L) 34.1 - 44.9 % [facility] MCV 89.9 79.4 - 94.8 fL [facility] MCH 29.0 25.6 - 32.2 pg [facility] MCHC 32.2 32.2 - 35.5 GM/DL [facility] RDW 13.5 11.7 - 14.4 % [facility] Platelets 319 150 - 450 K/CU MM [facility] MPV 9.9 9.4 - 12.3 fL [facility] nRBC 0 0 - 0 /100 WBC [facility] Specimen Blood Performing Organization Address City/State/Zipcode Phone Number [address] [address] [place] Basic Metabolic Panel (04/28/2019 4:46 AM ARTIFICIAL BREAST FABRICATOR)Only the most recent of5 results within the time period is included. Sodium 137 136 - 145 meq/L [facility] Potassium 3.5 3.5 - 5.1 meq/L [facility] Chloride 105 98 - 107 meq/L [facility] CO2 27 22 - 29 meq/L [facility] BUN 12 7 - 21 mg/dL [facility] Creatinine 0.61 0.57 - 1.25 [facility] mg/dL [facility] Glucose 128 (H) 70 - 105 mg/dL [facility] Calcium 8.1 (L) 8.4 - 10.2 [facility] mg/dL [facility] EGFR 101Comment: mL/min/1.73 sq [facility] ESTIMATED GFR IS NOT m [facility] ACCURATE CENTER CREATININE CLEARANCE IN PREDICTING GLOMERULAR FILTRATION RATE. ESTIMATED GFR IS NOT APPLICABLE FOR DIALYSIS PATIENTS. Specimen Blood Performing Organization Address City/State/Zipcode Phone Number [facility] [address] [place] [address] CENTER XR chest 1 view portable / bedside (04/27/2019 7:13 AM ARTIFICIAL BREAST FABRICATOR)Only the most recent of3 resultswithin the time period is included. Specimen Narrative Performed At FINAL REPORT [facility] CLINICAL HISTORY: CIED Implantation TECHNIQUE: 1 [...] Report Verified Date/Time: 04/27/2019 08:04:20 Reading Location: [address] Room Procedure Note Interface, External Ris In - 04/27/2019 8:06 AM ARTIFICIAL BREAST FABRICATOR FINAL REPORT CLINICAL HISTORY: CIED Implantation TECHNIQUE: [...] Verified Date/Time: 04/27/2019 0 8:04:20 Reading Location: [facility] B1 C013V Neuro Renae ding Room Performing Organization Address City/[facility] Phone Number GE RIS Islet Cell Ab Titer (04/27/2019 5:48 AM ARTIFICIAL BREAST FABRICATOR) Islet Cell Ab TNP LESS THAN [facility] Titer Comment: 1.25 [employer] Test Not Performed. Screening test Negative or Not Det ected. Titer not units performed. NOTE: End point titers are compared to a single inte rnational reference standard and values are reported in JDF ([employer]) units. Specimen Blood Narrative Performed At Performing Lab [email or web address] [id number] [employer] [address] Irlanda Ocampo MD, PhD, ANISH Performing Organization Address [facility] Phone Number [place] [address] INCORPORATED [address] [address] [facility] Islet Cell Ab Screen (04/27/2019 5:48 AM ARTIFICIAL BREAST FABRICATOR) [facility] Islet Cell Ab NEGATIVE NEGATIVE [facility] Comment: INCORPORATED This test was developed and its analytical performance characteristics have been determined by [employer] [facility]. It has not been cleared or approved by FDA. This assay has been validated pursuant to the CLIA regulations and is used for clini erwin purposes. Specimen Blood Narrative Performed At Performing Lab [employer] [place] [address] [address] [place] [address] Irlanda Ocampo MD, PhD, ANISH Performing Organization Address [facility] Phone Number [facility] [place] [address] INCORPORATED [address] [facility] [facility] MERRICK-65 (04/27/2019 5:48 AM ARTIFICIAL BREAST FABRICATOR) Pathologist [facility] MERRICK-65 <5 <5 IU/mL [facility] Comment: INCORPORATED This test was performed using the GAD65 TAWNYA method w hich is standardized against the International reference preparation 97/550 . Specimen Blood Narrative Performed At Performing [email or web address] [id number] [address] [place] [address] Irlanda Ocampo MD, PhD, ANISH Performing Organization Address City/[facility]/Zipcode Phone Number [place] [address] INCORPORATED [address] [facility] Islet Cell AB Screen (04/27/2019 5:48 AM ARTIFICIAL BREAST FABRICATOR) Islet Cell Ab Refer to [facility] Profile individual [facility] [employer] Cell Ab and/or Islet Cell Ab Titer results. Specimen Blood Performing Organization Address [facility] Cent[facility]ode Phone Number [place] [address] INCORPORATED [address] [facility] ECHOCARDIOGRAM REPORT - SCAN (04/26/2019 9:21 PM ARTIFICIAL BREAST FABRICATOR) Narrative Performed At This result has an attachment that is no t available. TRANSFUSION SERVICE REPORT - SCAN (04/25/2019 6:03 PM ARTIFICIAL BREAST FABRICATOR)Only the most recent of2 resultswithin the time period is included. Narrative Performed At This result has an attachment that is no t available. Creatine Kinase (CK) (04/25/2019 9:11 AM ARTIFICIAL BREAST FABRICATOR) Pathologist Sig nature Total CK 63 29 - 200 U/L [facility] Specimen Blood Performing Organization Address [facility] [address] CENTER Lipid panel (04/25/2019 5:40 AM ARTIFICIAL BREAST FABRICATOR) Pathologist Sig nature Triglycerides 117Comment: Specimen mg/dL [facility] slightly hemolyzed [facility] Cholesterol 122Comment: Specimen mg/dL [facility] slightly hemolyzed [facility] HDL 36 mg/dL [facility] LDL Calculated 63 mg/dL [facility] Specimen Blood Narrative Performed At Triglyceride Reference Range: [facility] Low Risk <150 Borderline 150-199 High Risk 200-499 Very High Risk >=500 Cholesterol Reference Range: Low Risk <200 Borderline 200-239 High Risk >240 HDL Cholesterol Reference Range: Low Risk >=60 High Risk <40 LDL Cholesterol Reference Range: Optimal <100 Near Optimal 100-129 Borderline 130-159 High 160-189 Very High >=190 Performing Organization Address City/[facility] Cent[facility]ode Phone Number [facility] [address] [place] [address] CENTER 2D Echo W/Doppler(CW/PW/Color) (04/25/2019 1:23 AM ARTIFICIAL BREAST FABRICATOR) Pathologist Sig nature Ejection Fraction [facility] ECHO [facility]ART[facility] CK [facility] Specimen Narrative Performed At Transthoracic Echocardiography Report (T TE) [facility]ART[facility] CKESSON [facility] Demographics Patient Name CHRISSIE ESTRADA Date of Study 04/25/2019 Gender Female Visit Number [id number] Race Unknown Room Number C827 Number Date of 1960 Referring Lona Tovar Physician Age 59 year(s) Loaders Junie Marquez [facility], RVT Personal Injury Paralegal Kade Ellis Interpreting Kayden Owens MD Physician [...] External Ris In - 04/26/2019 9:09 AM ARTIFICIAL BREAST FABRICATOR Transthoracic Echocardiography Report (TTE) Demographics Patient Name CHRISSIE ESTRADA Date o f Study 04/25/2019 Gender Female Visit Number [id number] Race Unknown Room N [facility] C827 Number Date of 1960 Referr coby Tovar Physic heather Age 59 year(s) Sonogr apher Junie Marquez RDCS, RVT Personal Injury Paralegal Kade Ellis Interp reting Kayden Owens MD Physic heather [...] T CI: 2.16 l/min/m^2 Performing Organization Address City/State/Zipcode Phone Number [facility] PT/aPTT (04/24/2019 11:20 PM ARTIFICIAL BREAST FABRICATOR) Pathologist Sig nature Protime 13.8 11.9 - 14.2 seconds [facility] INR 1.1 <=5.9 [facility] PTT 31.1 22.5 - 36.0 seconds [facility] Specimen Blood Narrative Performed At Effective 10/10/2018: PT Reference Range [facility] Change New: 11.9-14.2 Previous: 11.7-14.7 RECOMMENDED COUMADIN/WARFARIN INR THERAPY RANGES STANDARD DOSE: 2.0-3.0 Includes: PROPHYLAXIS for venous thrombosis, systemic embolization; TREATMENT for venous thrombosis and/or pulmonary embolus. HIGH RISK: Target INR is 2.5-3.5 for patients wiht mechanical heart valves. Prior to initiating heparin Prior to initiating heparin Performing Organization Address [facility] Centercode Phone Number [address] [address] [place] Lactic acid, venous (04/24/2019 11:20 PM ARTIFICIAL BREAST FABRICATOR) Pathologist [facility] Lactate, Venous 1.1Comment: 0.5 - 2.2 [facility] Specimen slightly mmol/L [facility] hemolyzed CENTER Specimen Blood Performing Organization Address [facility] Phone Number [address] [address] [place] Platelet count (04/24/2019 11:20 PM ARTIFICIAL BREAST FABRICATOR) Pathologist [facility] Platelets 348 150 - 450 K/CU MM [facility] Specimen Blood Performing Organization Address [facility] Phone Number [address] [address] [place] PERIPHERAL VASCULAR REPORT - SCAN (04/24/2019 9:20 PM ARTIFICIAL BREAST FABRICATOR) Narrative Performed At This result has an attachment that is no t available. POC ACTIVATED CLOTTING TIME (04/24/2019 6:33 PM ARTIFICIAL BREAST FABRICATOR)Only the most recent of3 resultswithin the time period is included. [facility] Activated Clotting 301Comment: sec [facility]'S Time Reference Range: [facility] 74-137 seconds, CENTER Baseline/TESTED AT [address] [address] Specimen Blood Performing Organization Address [facility] Phone Number [address] [address] [place] Carotid doppler bilateral (04/24/2019 5:40 AM ARTIFICIAL BREAST FABRICATOR) Pathologist Sig nature Ejection Fraction [facility] ECHO HEARTLAB MKCK ESSON CPACS Specimen Impressions Performed At Right Impression [facility] E[facility] HEART[facility] MKCKESSON [facility] 1. There is <50% diameter reduction (approximately [...] Performed At LAB - Carotid Duplex Study [facility] Demographics Patient Name CHRISSIE ESTRADA Date of Study 04/24/2019 Age 59 Visit Number [id number] Gender Female Accession Number [id number] Date of 1960 Referring Daryl Pablo, Room Number 1114 Physician Loaders Ehsan Kaplan Interpreting Lorenza Benoit MD Physician [...] External Ris In - 04/24/2019 8:36 AM ARTIFICIAL BREAST FABRICATOR PV LAB - Carotid Duplex Study Demographics Patient Name CHRISSIE ESTRADA Date of Study 04/24/2019 Age 59 Visit Number [id number] [place] Female Accession Number [id number] Date of 1960 Referring Daryl Pablo, Room Number 1114 Physician Loaders Ehsan Kaplan Inte rpretin Lorenza Benoit MD [...] Measurements:ICAPSV/CCAPS V 5.88.ICAEDV/CCAEDV 5.56. Performing Organization Address City/[facility]/Zipcode Phone Number [facility] ECHO HEARTLAB MKCKESSON CPACS ABORH, manual (04/23/2019 11:23 PM ARTIFICIAL BREAST FABRICATOR) Pathologist Sig nature ABO Grouping O [facility] Rh Factor POS [facility] Specimen Blood Performing Organization Address City/[facility]/Zipcode Phone Number [facility] [place] [address] [place], [place] [phone] after 03/13/2019 Insurance Payer Benefit Plan / Subscriber ID Effective Dates Phone Addre ss Type Group CDC REVIEW CDC REVIEW [id number] 2020-[place] [place] [address] Advance Directives For more information, please contact: [phone] Code Status Date Activated Date Inactivated Comments Full Code 02/27/2020 10:26 PM 03/01/2020 1:51 PM This code status was determined by: Patient Full Code 02/27/2020 10:26 PM 02/27/2020 10:26 PM This code status was determined by: Patient Full Code 04/24/2019 8:01 PM 04/28/2019 5:39 PM This code status was determined by: Patient Full Code 04/23/2019 10:04 PM 04/24/2019 8:00 PM This code status was determined by: Patient
--- OUTSIDE RECORDS SUMMARY | 2020-03-13 00:21 | XMS REPORT | Continuity of Care Document ---
:1960 Author Organization [facility] t Address [address] [place] [address] Care Team Providers Name Role Phone Pcp Primary Care Physician Unavailable Parvin Rueda MD Attending Clinician PARVIN RUEDA Attending Clinician Unavailable Sung OLEA, Pattie Attending Clinician Unavailable MIKEY PABLO Attending Clinician Unavailable Mikey Pablo MD Attending Clinician Rick Davis MD Attending Clinician Gabriela BUCKNER, Wendy Attending Clinician David BUCKNER Attending Clinician Evangelina BUCKNER, Ruth Attending Clinician PARVIN RUEDA Admitting Clinician Unavailable RICK DAVIS Admitting Clinician Unavailable Payers Payer Name Policy Type Policy Number Effective Date Expiration Date S balbina CDC REVIEWCDC [id number] [facility] [id number] 00:00:00 [place] [address] Problems Condition Condition Condition Status Onset Resolution Last Treating Co mments Source Name Details Category Date Date Treatment Clinician Date Cerebral Cerebral Disease Active 2019[facility] - 00:[facility]: Medical 00 [place] Midline Midline Disease Active 2019-[address] [facility] shift of shift of 0-16 [facility] - brain brain 00:00: Medical 00 [place] Subdural Subdural Disease Active 2019-[facility] hemorrhage hemorrhage 0-15 [facility]ie kes - 00:00: Medical 00 Center Hypertensi Hypertensi Disease Active 2018-[address] on on 06-25 [facility] - 00:[facility]: Medical 00 Center Hyperlipid Hyperlipid Disease Active 2018-[address] emia emia 06-25 [facility] - 00:00: Medical 00 Center [place] Disease Active 2018-[address] [facility] (ventricul (ventricul 06-25 Jodie kes - ar ar 00:00: Medical tachycardi tachycardi 00 Ce nter a) a) Heart Heart Disease Active 2018-[address] block block 06-25 [facility] - 00:00: Medical 00 [place] Leukocytos Leukocytos Disease Active 2018-[address] is is 06-25 [facility] - 00:00: Medical 00 [place] Uncontroll Uncontroll Disease Active 2018-[address] ed ed 06-25kes - diabetes diabetes 00:00: Medica l mellitus mellitus 00 Center with with hyperglyce hyperglyce braxton limon CAD CAD Disease Active 2018-[address] [facility] (coronary (coronary 06-24 Luke s - artery artery 00:00: Medical disease) disease) 00 Center Allergies, Adverse Reactions, Alerts Allergy Allergy Status Severity Reaction(s) Onset Inactive Treating Comm ents Source Name Type Date Date Clinician Morphine Propensi Active Other (See 2019-[address] [facility] to Comments) 0-15 attack as Luke s - adverse 00:00: pt Medical reaction 00 verbnaliz Marciae r s ed Family History Family Member Diagnosis Comments Start Date Stop Date Source Natural mother Coronary artery [facility] Social History Social Habit Start Date Stop Date Quantity Comments Source History SDOH [facility] - Alcohol Std Drinks Medica l Center History SDMT [facility] - Alcohol Binge Medical Raman ter Sex Assigned At [facility] Jodie kes - Medical Center Cigarettes smoked 2020-02-27 2020-02-[address] [facility] - current (pack per 00:00:00 00:00:00 Medical Center day) - Reported Tobacco use and 2020-02-27 2020-02-[address] [facility] - exposure 00:00:00 00:00:00 [facility] Alcohol intake 2020-02-27 2020-02-[address] - 00:00:00 00:00:00 non-drinker of Medical Ce nter alcohol (finding) History SDOH 2019-04-23 2019-04-[address] [facility] - Alcohol Frequency 00:00:00 00:00:00 Medical Center Smoking Status Start Date Stop Date Source Current every day smoker 2020-02-27 00:00:[address] [facility] Medications Ordered Filled Start Stop Current Ordering Indication Dosage Frequency Signature Comments Components Source Medication Medication Date Date Medication? Clinician (SIG) Name Name aspirin 81 2019-05- Yes 81mg QD Take [address] MG EC 0-23 10-23 tablet (81 [facility] - tablet 00:00: 23:59 mg total) Medic al 00 :00 by mouth Center daily. lisinopriL 2019-05- Yes 40mg QD Take [address] (PRINIVIL,Z 0-19 10-19 tablet (40 L ukes - ESTRIL) 40 00:00: 23:59 mg total) M edical MG tablet 00 :00 by mouth Center daily. insulin 2019-05 Yes QD Inject [facility] detemir 0-18 subcutaneo [facility] - U-100 11:51: usly Medical (LEVEMIR) 43 nightly Center 100 unit/mL bedtime . injection insulin 2019-[address] [facility] aspart 0-18 subcutaneo [facility] - U-100 11:51: usly 3 Medical (NovoLOG) 43 (three) Center 100 unit/mL times (3 mL) InPn daily before meals Afternoon around noon . atorvastati 2019-05 Yes 80mg QD Take [address] n (LIPITOR) 0-18 by mouth Luke s - 80 MG 11:51: nightly. Medical tablet 43 Center FLUoxetine 2019-05 Yes 60mg QD Take [address] (PROzac) 40 0-18 by mouth Luke s - MG capsule 11:51: daily 60 Med ical 43 mg (not Center 40mg)! . pantoprazol 2019-05 Yes 40mg QD Take [address] [facility] e 0-18 by mouth [facility] - (PROTONIX) 11:51: daily. Medic al 40 MG 43 Center tablet aspirin 81 2019-05 No 81mg QD Take [address] MG EC 0-18 10-18 by mouth [facility] - tablet 11:05: 00:00 daily. Medical 47 :00 Center clopidogreL 2019-05 No 75mg QD Take [address] (PLAVIX) 75 0-18 10-18 by mouth Davis es - mg tablet 11:05: 00:00 daily. Medic al 47 :00 Center lisinopriL 2019-05- No 10mg QD Take [address] (PRINIVIL,Z 0-18 10-18 by mouth Davis es - ESTRIL) 10 11:05: 00:00 daily. Medi erwin MG tablet 47 :00 Center metoprolol 2019-05- No 25mg QD Take [address] succinate 0-18 10-18 by mouth [facility] - (TOPROL-XL) 11:05: 00:00 daily. Med ical 25 MG 24 hr 47 :00 Center tablet traMADoL 2019-05 Yes 50mg Take [address] (ULTRAM) 50 0-18 tablet (50 Jodie kes - mg tablet 00:00: mg total) Med ical 00 by mouth Center every 6 (six) hours as needed for Pain (Headache) . Max Daily Amount: 200 mg carvediloL 2019-05- Yes 25mg Q.5D Take [address] (COREG) 25 0-18 10-18 tablet (25 Jodie kes - MG tablet 00:00: 23:59 mg total) Me dical 00 :00 by mouth 2 Center (two) times daily. lisinopril 2018-05- No 2.5mg QD Take [address] (PRINIVIL,Z 2-16 -15 tablet [facility]ukes - ESTRIL) 2.5 00:00: 23:59 (2.5 mg Me dical MG tablet 00 :00 total) by Cente r mouth daily for 30 days. atorvastati 2018-05- No 80mg QD Take [address] n (LIPITOR) 2-15 -14 tablet (80 L ukes - 80 MG 00:00: 23:59 mg total) Medica l tablet 00 :00 by mouth Center nightly for 30 days. aspirin 81 2018-05- No 81mg QD Take [address] MG chewable 2-14 -13 tablet (81 L ukes - tablet 00:00: 23:59 mg total) Medic al 00 :00 by mouth Center daily for 90 days. clopidogrel 2018-05- No 75mg QD Take [address] (PLAVIX) 75 -14 - tablet (75 L ukes - mg tablet [...] Q.5D Apply [facility] t (MICOTIN) 2 2-13 12-12 topically Jodie kes - % cream 00:00: 23:59 2 (two) Medica l 00 :00 times Center daily. HYDROcodone 2018-05- No 1{tbl} Take [address] -acetaminop 2-13 12-23 tablet by Jodie carl (NORCO 00:00: 23:59 [...] 10mg QD Take [address] [facility] (PRINIVIL,Z 2-13 12-15 tablet (10 L ukes - ESTRIL) 10 00:00: 00:00 mg total) M edical MG tablet 00 :00 by mouth Center daily for 30 days. Immunizations Ordered Immunization Filled Immunization Date Status Commen ts Source Name Name Pneumococcal 2020-02-[address] [facility] - Conjugate (Prevnar) 00:00:00 Medic al [place] 13-Valent Influenza Four-QIV 2020-02-[address] [facility] - PF 3YR+ 00:00:00 Medical Center Vital Signs Vital Name Observation Time Observation Value Comments Source Systolic blood 2020-03-01 08:48:00 167 mm[Hg] [facility] pressure [facility] Diastolic blood 2020-03-01 08:48:00 90 mm[Hg] [facility] S t [facility] Heart rate 2020-03-01 08:48:00 67 /min [facility] Body temperature 2020-03-01 08:48:00 36.61 Nancy [facility] Respiratory rate 2020-03-01 08:48:00 18 /min [facility] Oxygen saturation in 2020-03-01 08:48:00 99 /min [facility] - Arterial blood by Medical Ce nter Pulse oximetry Body height 2020-02-28 06:00:00 172.7 cm [facility] Body weight 2020-02-28 06:00:00 77.2 kg [facility] BMI 2020-02-28 06:00:00 25.88 kg/m2 [facility] Procedures Procedure Date / Time Performing Clinician Source Performed POCT-GLUCOSE METER 2020-03-01 08:53:00 Jan Rueda [facility] CBC W/PLT COUNT & AUTO 2020-03-01 05:01:00 [facility] TROPONIN I 2020-03-01 04:57:00 [facility] PREPARE LEUKO-REDUCED 2020-02-29 23:54:00 Figueroa Crespo [facility] POCT-GLUCOSE METER 2020-02-29 21:43:00 Jan Rueda [facility] POCT-GLUCOSE METER 2020-02-29 18:01:00 Jan Rueda [facility] HEMOGLOBIN A1C 2020-02-29 17:55:00 Eduarda Anguiano [facility] POCT-GLUCOSE METER 2020-02-29 11:26:00 Keyonsac-osage hospitalJan [facility] POCT-GLUCOSE METER 2020-02-29 08:38:00 Keyoncarolynn Jan [facility] CT BRAIN WITHOUT IV 2020-02-29 05:45:00 Gildardo [facility] COMPREHENSIVE METABOLIC 2020-02-29 04:29:00 Marlyn Ewing [facility] CBC W/PLT COUNT & AUTO 2020-02-29 04:29:00 Lei Pepe [facility] POTASSIUM 2020-02-28 22:26:00 Jacques [facility] POCT-GLUCOSE METER 2020-02-28 16:47:00 Mohit Jan [facility] POTASSIUM 2020-02-28 14:36:00 [facility] 2020-02-28 14:36:00 Stan Hanna [facility] POCT-GLUCOSE METER 2020-02-28 07:27:00 Jan Rueda [facility] SARS-COV2/RT-PCR ([facility] & 2020-02-28 05:39:[address] [place] [facility] - REF LABS) [facility] TROPONIN I 2020-02-28 05:39:00 Jan Rueda [facility] COMPREHENSIVE METABOLIC 2020-02-28 05:39:00 Marlyn Ewing [facility] PHOSPHORUS 2020-02-28 05:39:00 Lei [facility] MAGNESIUM 2020-02-28 05:39:00 Lei [facility] CBC W/PLT COUNT & AUTO 2020-02-28 05:39:00 [facility] TRANSFUSE LEUKO-REDUCED 2020-02-28 02:39:59 Figueroa Crespo [facility] POCT-GLUCOSE METER 2020-02-28 02:32:00 Jan Rueda [facility] CT BRAIN WITHOUT IV 2020-02-28 01:59:00 Sina Nguyen [facility] PROTHROMBIN TIME/INR 2020-02-27 22:55:00 Lei [facility] I [facility] FIBRINOGEN 2020-02-27 22:55:00 [facility] COMPREHENSIVE METABOLIC 2020-02-27 22:55:00 Marlyn Ewing [facility] HEPATIC FUNCTION PANEL 2020-02-27 22:55:00 [facility] APTT 2020-02-27 22:55:00 [facility] TYPE AND SCREEN, 2020-02-27 22:55:00 [facility] AUTOMATED [facility] CBC W/PLT COUNT & AUTO 2020-02-27 22:55:00 [facility] REPORT OF PROCEDURE - 2020-02-27 00:00:00 Provider, Default [facility] - ENDOSCOPY SCAN Scanning [facility] ARRYTHMIA IMPLANT REPORT 2019-05-03 12:40:23 Provider, Default [facility] - - SCAN Scanning [facility] RHYTHM STRIP - SCAN 2019-05-01 11:22:36 Provider, Default [facility] CARDIAC CATH REPORT - 2019-04-30 14:11:52 Provider, Default [facility] - SCAN Scanning [facility] CARDIAC CATH REPORT - 2019-04-30 14:11:50 Provider, Default [facility] St kes - SCAN Scanning [facility] ARRYTHMIA IMPLANT REPORT 2019-04-30 14:11:49 Provider, Default [facility] - - SCAN Scanning [facility] RHYTHM STRIP - SCAN 2019-04-30 14:11:39 Provider, Default [facility] - Scanning [facility] RHYTHM STRIP - SCAN 2019-04-30 09:00:48 Provider, [facility] RHYTHM STRIP - SCAN 2019-04-30 09:00:46 Provider, Default [facility] POCT-GLUCOSE METER 2019-04-28 12:23:00 Mendez Ochoa [facility] POCT-GLUCOSE METER 2019-04-28 08:15:00 Mendez Ochoa [facility] ECG 12-LEAD 2019-04-28 07:01:14 Unknown, Hl7 Doctor [facility] CBC (HEMOGRAM ONLY) 2019-04-28 04:46:00 Aba Bustillo [facility] BASIC METABOLIC PANEL (7) 2019-04-28 04:46:00 Aba Bustillo CH I [facility] MAGNESIUM 2019-04-28 04:46:00 Aba Bustillo [facility] BUN AND CREATININE 2019-04-28 04:46:[address] [facility] POCT-GLUCOSE METER 2019-04-27 21:50:00 Mendez Ochoa quincy [facility] POCT-GLUCOSE METER 2019-04-27 16:58:00 Mendez Ochoa quincy [facility] POCT-GLUCOSE METER 2019-04-27 11:51:00 FlorMendez medeiros [facility] POCT-GLUCOSE METER 2019-04-27 07:52:00 Peri Davis [facility] XR CHEST 1 VIEW 2019-04-27 07:13:00 Vinnie Thornton [facility] PORTABLE/BEDSIDE [facility] ECG 12-LEAD 2019-04-27 07:00:06 Unknown, Hl7 [facility] CBC (HEMOGRAM ONLY) 2019-04-27 05:48:00 Aba Bustillo [facility] BASIC METABOLIC PANEL (7) 2019-04-27 05:48:00 Aba Bustillo [facility] MAGNESIUM 2019-04-27 05:48:00 Aba Bustillo [facility] BUN AND CREATININE 2019-04-27 05:48:[address] [facility] MERRICK-65 2019-04-27 05:48:00 [facility] ISLET CELL AB SCR 2019-04-27 05:48:00 [facility] ISLET CELL AB SCREEN 2019-04-27 05:48:00 [facility] ISLET CELL AB TITER 2019-04-27 05:48:00 [facility] ECG 12-LEAD 2019-04-27 00:20:26 Unknown, Hl7 [facility] ECHOCARDIOGRAM REPORT - 2019-04-26 21:21:23 Provider, Default EVELYN Fournier [facility] POCT-GLUCOSE METER 2019-04-26 21:11:00 [facility]SE METER 2019-04-26 18:02:00 Peri Davis [facility] XR CHEST 1 VIEW 2019-04-26 12:39:00 Vinnie Thornton [facility] PORTABLE/BEDSIDE [facility] ECG 12-LEAD 2019-04-26 11:37:07 Unknown, Hl7 Doctor [facility] POCT-GLUCOSE METER 2019-04-26 10:28:00 Adriana Peri [facility] PACEMAKER GENERATOR - 2019-04-26 07:26:[address] [facility] - INSERTION W/ EXISTING Medical Ce nter LEAD (SINGLE) CBC (HEMOGRAM ONLY) 2019-04-26 03:50:00 Aba Bustillo [facility] BASIC METABOLIC PANEL (7) 2019-04-26 03:49:00 Aba Bustillo [facility] MAGNESIUM 2019-04-26 03:49:00 Aba Bustillo [facility] POCT-GLUCOSE METER 2019-04-25 21:43:00 Adriana [facility] TRANSFUSION SERVICE 2019-04-25 18:03:25 ProviderReginald [facility] REPORT - SCAN [facility] TROPONIN I 2019-04-25 16:14:00 Aba Bustillo [facility] POCT-GLUCOSE METER 2019-04-25 11:44:00 Adriana, [facility] TROPONIN I 2019-04-25 09:11:00 Aba Bustillo [facility] CREATINE KINASE (CK) 2019-04-25 09:11:00 Adriana, [facility] ECG 12-LEAD 2019-04-25 08:09:17 Unknown, Hl7 [facility] POCT-GLUCOSE METER 2019-04-25 08:07:00 Adriana, [facility] LIPID PANEL 2019-04-25 05:40:00 Adriana [facility] CBC (HEMOGRAM ONLY) 2019-04-25 05:40:00 Aba Bustillo [facility] BASIC METABOLIC PANEL (7) 2019-04-25 05:40:00 Aba Bustillo CH I [facility] MAGNESIUM 2019-04-25 05:40:00 Aba Bustillo [facility] TROPONIN I 2019-04-25 05:40:00 Keny Aba [facility] APTT 2019-04-25 05:40:00 Keny Aba [facility] ECG 12-LEAD 2019-04-25 01:46:08 Unknown, Hl7 [facility] 2D ECHO W/ DOPPLER 2019-04-25 01:23:07 Lona Abrahamlake Guy [facility] (CW/PW/COLOR) [facility] XR CHEST 1 VIEW 2019-04-25 00:16:00 Keny Aba [facility] PORTABLE/BEDSIDE Medical Center PLATELET COUNT 2019-04-24 23:20:00 Frantz Bustilloon [facility] APTT 2019-04-24 23:20:00 Aba Bustillo [facility] COMPREHENSIVE METABOLIC 2019-04-24 23:20:00 Aba Bustillo [facility] MAGNESIUM 2019-04-24 23:20:00 Aba Bustillo [facility] PHOSPHORUS 2019-04-24 23:20:00 Keny Aba [facility] PT/APTT 2019-04-24 23:20:00 Keny [facility] LACTIC ACID, VENOUS 2019-04-24 23:20:00 Frantz Bustilloon [facility] TROPONIN I 2019-04-24 23:20:00 Frantz Bustilloon [facility] ECG 12-LEAD 2019-04-24 23:11:21 Unknown, 7 [facility] ECG 12-LEAD 2019-04-24 23:10:42 Unknown, 7 [facility] POCT-GLUCOSE METER 2019-04-24 23:10:00 Peri Davis [facility] ECG 12-LEAD 2019-04-24 23:08:09 Unknown, 7 [facility] ECG 12-LEAD 2019-04-24 23:07:30 Unknown, 7 [facility] ECG 12-LEAD 2019-04-24 23:06:59 Unknown, 7 [facility] ECG 12-LEAD 2019-04-24 23:06:38 Unknown, Hl7 Doctor [facility] ECG 12-LEAD 2019-04-24 23:02:29 Unknown, 7 [facility] ECG 12-LEAD 2019-04-24 22:52:51 Unknown, 7 [facility] PERIPHERAL VASCULAR 2019-04-24 21:20:18 Provider, [facility] - REPORT - SCAN Scanning [facility] ECG 12-LEAD 2019-04-24 21:09:17 Unknown, Hl7 [facility] POCT-ACT 2019-04-24 18:33:00 [facility] 2019-04-24 18:00:58 [facility] SC[facility] POCT-ACT 2019-04-24 17:56:00 Adriana Peri [facility] POCT-ACT 2019-04-24 17:42:00 [facility] - NO 2019-04-24 16:30:00 Dain Hutchinson [facility] ANGIOS [facility] IMPELLA PERC LVAD [facility] - 2019-04-24 16:30:00 Dain Hutchinson [facility] - IP PROC ONLY Medical [place] POCT-GLUCOSE METER 2019-04-24 13:06:00 Peri Davis mykepattie [facility] APTT 2019-04-24 12:11:00 Steven Sultana [facility] POCT-GLUCOSE METER 2019-04-24 09:48:00 Peri Davis mykepattie [facility] APTT 2019-04-24 05:53:00 Steven Sultana [facility] CAROTID DOPPLER BILATERAL 2019-04-24 05:40:00 Steven Sultana I [facility] ECG 12-LEAD 2019-04-23 23:47:13 Unknown, Hl7 [facility] ECG 12-LEAD 2019-04-23 23:46:55 Unknown, Hl7 Doctor [facility] ABORH, MANUAL 2019-04-23 23:23:00 Stacey Mitchell [facility] BASIC METABOLIC PANEL (7) 2019-04-23 22:56:00 [place] [facility] HEMOGLOBIN A1C 2019-04-23 22:56:00 [place] [facility] APTT 2019-04-23 22:56:00 [place] [facility] PROTHROMBIN TIME/INR 2019-04-23 22:56:00 [facility] TYPE AND SCREEN, 2019-04-23 22:56:[address] [facility] AUTOMATED [facility] CBC W/PLT COUNT & AUTO 2019-04-23 22:56:00 [facility] DIFFERENTIAL [facility] POCT-GLUCOSE METER 2019-04-23 22:47:[address] [facility] Plan of Care Planned Activity Planned Date Details Comments Source Future Scheduled 2022-04-[address] [facility] - Test 00:00:00 (procedure) [code = Medical Center 61711560] Future Scheduled 2020-08-[address] [facility] - Test 00:00:00 measurement Medical Center (procedure) [code = 93492016] Future Scheduled 2020-04-[address] [facility] - Test 00:00:00 0-64 YRS (1 of 1 - Medical C enter PPSV23) [code = PNEUMOCOCCAL VACCINE 0-64 YRS (1 of 1 - PPSV23)] Future Scheduled [address] [facility] - Test 00:00:00 malignant neoplasm of Medica l Center cervix (procedure) [code = 690312034] Future Scheduled [address] DIAB[address] EYE EXAM [facility] - Test 00:00:00 [code = DIABETIC EYE Medical Center EXAM] Future Scheduled [address] [facility] - Test 00:00:00 examination Medical Center (regime/therapy) [code = 084943297] Future Scheduled 1972 Urine screening for [facility] - Test 00:00:00 protein (procedure) Medical Center [code = 278617597] Future Scheduled 1960 Screening [facility] - Test 00:00:00 [facility] breast (procedure) [code = 895666344] Future Scheduled 1960 Screening for [facility] - Test 00:00:00 [facility] colon (procedure) [code = 150764806] Results Test Description Test Time Test Comments Results Result Comments Source POC-Glucose meter 2020-03-01 09:05:00 Test Item Value Reference Range Interpretation Comme nts POC-Glucose Meter (test code = 162 mg/dL 70-110 H : [facility] [address] [facility] [address], [address]: Medical Claims Assistant/Techni jonh ID = [id number] for BLOOMJENNY Lab Interpretation (test code = Abnormal 16124-4) [facility] [id number] 09:05:00 Test Item Value Reference Range Interpretation Comments POC-GLUCOSE METER 162 mg/dL 70-110 H : TESTED A T [facility] [address] (BEAKER) (test code = [address] [facility], 1538) [address]: Medical Claims Assistant/Techni john ID = [id number] for YAQUELIN SAMUELJENNY Hemoglobin [id number] 07:40:00 Test Item Value Reference Range Interpretation Comments Hemoglobin A1C (test code = 4548-4) 8.2 % 4.3-6.1 H Lab Interpretation (test code = Abnormal 23348-1) [facility] [id number] 07:40:00 Test Item Value Reference Range Interpretation Comments HEMOGLOBIN A1C (BEAKER) (test code = 8.2 % 4.3-6.1 H 368) CBC with platelet count + automated [id number] 06:14:00 Test Item Value Reference Range Interpretation Comments WBC (test code = 6690-2) 12.7 3.5- 10.5 K/L H RBC (test code = 789-8) 4.41 3.93- 5.22 M/L MCHC (test code = 786-4) 32.3 32.2- 35.5 GM/DL Hematocrit (test code = 4544-3) 38.7 % 34.1-44.9 MCV (test code = 787-2) 87.8 fL 79.4-94.8 MCH (test code = 785-6) 28.3 pg 25.6-32.2 RDW (test code = 788-0) 13.7 % 11.7-14.4 Platelets (test code = 777-3) 407 150- 450 K/CU MM MPV (test code = 39350-6) 9.8 fL 9.4-12.3 nRBC (test code = 413) 0 0- 0 /100 WBC % Neutros (test code = 429) 70 % % Lymphs (test code = 430) 23 % % Monos (test code = 431) 6 % % Eos (test code = 432) 1 % % Baso (test code = 437) 0 % # Neutros (test code = 670) 8.81 1.56- 6.13 K/L H # Lymphs (test code = 414) 2.87 1.18- 3.74 K/L # Monos (test code = 415) 0.81 0.24- 0.36 K/L H # Eos (test code = 416) 0.12 0.04- 0.36 K/L # Baso (test code = 417) 0.03 0.01- 0.08 K/L Immature Granulocytes-Relative 0 % 0-1 (test code = 2801) Lab Interpretation (test code = Abnormal 26336-3) [facility] W/PLT COUNT & AUTO [id number] 06:14:00 Test Item Value Reference Range Interpretation Comments WHITE BLOOD CELL COUNT (BEAKER) 12.7 K/ L 3.5-10.5 H (test code = 775) RED BLOOD CELL COUNT (BEAKER) 4.41 M/ L 3.93-5.22 (test code = 761) HEMOGLOBIN (BEAKER) (test code = 12.5 GM/DL 11.2-15.7 410) HEMATOCRIT (BEAKER) (test code = 38.7 % 34.1-44.9 411) MEAN CORPUSCULAR VOLUME (BEAKER) 87.8 fL 79.4-94.8 (test code = 753) MEAN CORPUSCULAR HEMOGLOBIN 28.3 pg 25.6-32.2 (BEAKER) (test code = 751) MEAN CORPUSCULAR HEMOGLOBIN CONC 32.3 GM/DL 32.2-35.5 (BEAKER) (test code = 752) RED CELL DISTRIBUTION WIDTH 13.7 % 11.7-14.4 (BEAKER) (test code = 412) PLATELET COUNT (BEAKER) (test 407 K/CU MM 150-450 code = 756) MEAN PLATELET VOLUME (BEAKER) 9.8 fL 9.4-12.3 (test code = 754) NUCLEATED RED BLOOD CELLS 0 /100 WBC 0-0 (BEAKER) (test code = 413) NEUTROPHILS RELATIVE PERCENT 70 % (BEAKER) (test code = 429) LYMPHOCYTES RELATIVE PERCENT 23 % (BEAKER) (test code = 430) MONOCYTES RELATIVE PERCENT 6 % (BEAKER) (test code = 431) EOSINOPHILS RELATIVE PERCENT 1 % (BEAKER) (test code = 432) BASOPHILS RELATIVE PERCENT 0 % (BEAKER) (test code = 437) NEUTROPHILS ABSOLUTE COUNT 8.81 K/ L 1.56-6.13 H (BEAKER) (test code = 670) LYMPHOCYTES ABSOLUTE COUNT 2.87 K/ L 1.18-3.74 (BEAKER) (test code = 414) MONOCYTES ABSOLUTE COUNT (BEAKER) 0.81 K/ L 0.24-0.36 H (test code = 415) EOSINOPHILS ABSOLUTE COUNT 0.12 K/ L 0.04-0.36 (BEAKER) (test code = 416) BASOPHILS ABSOLUTE COUNT (BEAKER) 0.03 K/ L 0.01-0.08 (test code = 417) IMMATURE GRANULOCYTES-RELATIVE 0 % 0-1 PERCENT (BEAKER) (test code = 2801) Troponin [id number] 06:12:00 Test Item Value Reference Range Interpretation Comments Troponin I (test code = <0.01 0-0.03 31280-3) FADI (test code = FADI) Troponin I [...] failure, acidosis, acute neurological disease, and persistent tachyarrhythmia.Opera tor ID - EDASI Lab Interpretation (test Normal code = 63185-2) [facility] [id number] 06:12:00 Test Item Value Reference Range Interpretation Comments TROPONIN I ([facility]) (test code = 397) < ng/mL 0.00-0.03 Troponin I (TnI) levels must [...] failure, acidosis, acute neurological disease, and persistent tachyarrhythmia.Medical Claims Assistant ID - EDASIPrepare Leuko-Red PLT 2020-02-29 23:54:00 Test Item Value Reference Range Interpretation Comments Unit ABO (test code = 5593820) O Pos UNIT NUMBER (test code = [id number] 934-0) Status (test code = 5120581) TX_TIMEINCHART Blood Bank Product (test code PLATELETS = 2263) PRODUCT CODE (test code = F3385A91 933-2) [facility]PO[facility]UCOSE [id number] 21:55:00 Test Item Value Reference Range Interpretation Comments POC-GLUCOSE METER 173 mg/dL 70-110 H : [facility] (test code = [facility], 153) [address]: Medical Claims Assistant/Techni john ID = [id number] for DE NNIS, DANO POCT-GLUCOSE [id number] 18:13:00 Test Item Value Reference Range Interpretation Comments POC-GLUCOSE METER 211 mg/dL 70-110 H : [facility] (test code = [facility], 153) [address]: Medical Claims Assistant/Techni john ID = [id number] for FL ORES, JASS POCT-GLUCOSE [id number] 11:38:00 Test Item Value Reference Range Interpretation Comments POC-GLUCOSE METER 139 mg/dL 70-110 H : Notified RN/MD: ([facility]) (test code = TESTED AT [facility] 67[address] 153) [facility], [address]: Medical Claims Assistant/Techni john ID = [id number] for SHELTON BAUER POCT-GLUCOSE [id number] 08:50:00 Test Item Value Reference Range Interpretation Comments POC-GLUCOSE METER 178 mg/dL 70-110 H : TESTED A Mariel[facility] 6720 ([place]) (test code = [facility], 1538) [address]: Medical Claims Assistant/Techni john ID = [id number] for JASS MCQUEEN CT, BRAIN, WITHOUT [id number] 06:57:00Unlisted Reason for Exam - Click Yes and Enter Reason Below->No [facility] : 1960 Sex: FFINAL REPORT CT, BRAIN, WITHOUT CONTRAST CLINICAL INDICATION: Cerebralhemorrhage suspected COMPARISON: February 28, 2020 TECHNIQUE: Noncontrast axial CT imaging of the brain and skull. DOSE REDUCTION: Dose modulation, iterative reconstruction, and/or weight-based adjustment of the mA/kV was utilized to reduce the radiation dose to as low as reasonably achievable. FINDINGS:Inferior falcine and tentorial extension of previously described right hemispheric subdural hematoma are unchanged. There is contouring of the underlying brain parenchyma over the right hemisphere without visible edema. No herniation has developed. Bowing of the septum pellucidum is present, however there is no ventricular entrapment. The anna-white distinction is preserved. Osseous structures areintact. IMPRESSION: Grossly stable intracranial appearance when compared to February 28, 2020 Signed: JR Goldman Robert MDReport Verified Date/Time: 02/29/2020 06:57:51 Reading Location: [address] Neuro Reading Room CT brain without IV [id number] 06:57:00Interface, External Ris In - 02/29/2020 6:[address], BRAIN, WITHOUT CONTRAST CLINICAL INDICATION: Cerebral hemorrhage suspected COMPARISON: February 28, 2020 TECHNIQUE: Noncontrast axial CT imaging of the brain and skull. DOSE REDUCTION: Dose modulation, iterative reconstruction, and/or weight-based adjustment of the mA/kV was utilized to reduce the radiation dose to as low as reasonably achievable. FINDINGS:Inferior falcine and tentorial extension of previously described right hemispheric subdural hematoma are unchanged. There is contouring of the underlying brain parenchyma over the right hemisphere without visible edema. No herniation has developed. Bowing of the septum pellucidum is present, however there is no ventricular entrapment. The anna-white distinction is preserved. Osseous structures are intact. IMPRESSION: Grossly stable intracranial appearance when compared to February 28, 2020 Signed: JR Goldman Robert MDReport Verified Date/Time: 02/29/2020 06:57:51 Reading Location: [facility] C013V [facility] [id number] 06:05:00 Test Item Value Reference Range Interpretation Comments Protein, Total (test 6.9 6.0- 8.3 gm/dL code = 2885-2) Albumin (test code = 3.7 g/dL 3.5-5 65145-9) Alkaline Phosphatase 135 U/L 40-150 (test code = 6768-6) Total Bilirubin (test 0.5 mg/dL 0.2-1.2 code = 1975-2) Sodium (test code = 138 meq/L 113-528 3155-2) Potassium (test code = 3.8 meq/L 3.5-5.1 2823-3) Chloride (test code = 104 meq/L 98-107 2075-0) CO2 (test code = 24 meq/L 22-29 2027-9) BUN (test code = 7 mg/dL 7-21 3094-0) Creatinine (test code 0.66 mg/dL 0.57-1.25 = 2160-0) Glucose (test code = 183 mg/dL 70-105 H 2345-7) Calcium (test code = 8.0 mg/dL 8.4-10.2 L 81466-6) AST (test code = 14 U/L 5-34 1920-8) ALT (test code = 16 U/L 6-55 1742-6) EGFR (test code = 92 mL/min/1.73 [place] [address]-0) NOT ACCURATE CREATININE CLEARANCE IN PREDICTING GLOMERULAR FILTRATION RATE . ESTIMATED GFR I S NOT APPLICABLE FOR DIALYSIS PATIENTS. FADI (test code = FADI) Medical Claims Assistant ID - EDASI Lab Interpretation Abnormal (test code = 17801-3) [facility]COMPRE[facility]ENSIVE METABOLIC [id number] 06:05:00 Test Item Value Reference Range Interpretation Comments TOTAL PROTEIN 6.9 gm/dL 6.0-8.3 (BEAKER) (test code = 770) ALBUMIN (BEAKER) 3.7 g/dL 3.5-5.0 (test code = 1145) ALKALINE PHOSPHATASE 135 U/L 40-150 (BEAKER) (test code = 346) BILIRUBIN TOTAL 0.5 mg/dL 0.2-1.2 (BEAKER) (test code = 377) SODIUM (BEAKER) (test 138 meq/L 136-145 code = 381) POTASSIUM (BEAKER) 3.8 meq/L 3.5-5.1 (test code = 379) CHLORIDE (BEAKER) 104 meq/L 98-107 (test code = 382) CO2 (BEAKER) (test 24 meq/L 22-29 code = 355) BLOOD UREA NITROGEN 7 mg/dL 7-21 (BEAKER) (test code = 354) CREATININE (BEAKER) 0.66 mg/dL 0.57-1.25 (test code = 358) GLUCOSE RANDOM 183 mg/dL 70-105 H (BEAKER) (test code = 652) CALCIUM (BEAKER) 8.0 mg/dL 8.4-10.2 L (test code = 697) AST (SGOT) (BEAKER) 14 U/L 5-34 (test code = 353) ALT (SGPT) (BEAKER) 16 U/L 6-55 (test code = 347) EGFR (BEAKER) (test 92 mL/min/1.73 ESTIMA DARIELA GFR IS code = 1092) sq m NOT ACCURATE CREATININE CLEARANCE IN PREDICTING GLOMERULAR FILTRATION RATE . ESTIMATED GFR I S NOT APPLICABLE FOR DIALYSIS PATIEN TS. Medical Claims Assistant ID - EDASICBC W/PLT COUNT & AUTO [id number] 05:51:00 Test Item Value Reference Range Interpretation Comments WHITE BLOOD CELL COUNT (BEAKER) 14.7 K/ L 3.5-10.5 H (test code = 775) RED BLOOD CELL COUNT (BEAKER) 4.36 M/ L 3.93-5.22 (test code = 761) HEMOGLOBIN (BEAKER) (test code = 12.5 GM/DL 11.2-15.7 410) HEMATOCRIT (BEAKER) (test code = 38.7 % 34.1-44.9 411) MEAN CORPUSCULAR VOLUME (BEAKER) 88.8 fL 79.4-94.8 (test code = 753) MEAN CORPUSCULAR HEMOGLOBIN 28.7 pg 25.6-32.2 (BEAKER) (test code = 751) MEAN CORPUSCULAR HEMOGLOBIN CONC 32.3 GM/DL 32.2-35.5 (BEAKER) (test code = 752) RED CELL DISTRIBUTION WIDTH 13.8 % 11.7-14.4 (BEAKER) (test code = 412) PLATELET COUNT (BEAKER) (test 388 K/CU MM 150-450 code = 756) MEAN PLATELET VOLUME (BEAKER) 9.8 fL 9.4-12.3 (test code = 754) NUCLEATED RED BLOOD CELLS 0 /100 WBC 0-0 (BEAKER) (test code = 413) NEUTROPHILS RELATIVE PERCENT 77 % (BEAKER) (test code = 429) LYMPHOCYTES RELATIVE PERCENT 17 % (BEAKER) (test code = 430) MONOCYTES RELATIVE PERCENT 5 % (BEAKER) (test code = 431) EOSINOPHILS RELATIVE PERCENT 1 % (BEAKER) (test code = 432) BASOPHILS RELATIVE PERCENT 0 % (BEAKER) (test code = 437) NEUTROPHILS ABSOLUTE COUNT 11.31 K/ L 1.56-6.13 H (BEAKER) (test code = 670) LYMPHOCYTES ABSOLUTE COUNT 2.46 K/ L 1.18-3.74 (BEAKER) (test code = 414) MONOCYTES ABSOLUTE COUNT (BEAKER) 0.73 K/ L 0.24-0.36 H (test code = 415) EOSINOPHILS ABSOLUTE COUNT 0.12 K/ L 0.04-0.36 (BEAKER) (test code = 416) BASOPHILS ABSOLUTE COUNT (BEAKER) 0.03 K/ L 0.01-0.08 (test code = 417) IMMATURE GRANULOCYTES-RELATIVE 0 % 0-1 PERCENT (BEAKER) (test code = 2801) [id number] 22:48:00 Test Item Value Reference Range Interpretation Comments Potassium (test code = 3.9 meq/L 3.5-5.1 2823-3) FADI (test code = FADI) Medical Claims Assistant ID - DB Lab Interpretation (test Normal code = 98294-4) [facility] HospitalPOTASSIUM2020-10-16 22:48:00 Test Item Value Reference Range Interpretation Comments POTASSIUM (BEAKER) (test code = 3.9 meq/L 3.5-5.1 379) Medical Claims Assistant ID - DBPOCT-GLUCOSE [id number] 17:00:00 Test Item Value Reference Range Interpretation Comments POC-GLUCOSE METER 175 mg/dL 70-110 H : Notified RN/MD: (BEAKER) (test code = TESTED AT [facility] 6720 1538) [facility], [address]: Medical Claims Assistant/Techni john ID = [id number] for Esperanza Monreal [id number] 15:18:00 Test Item Value Reference Range Interpretation Comments Magnesium (test code = 2.2 mg/dL 1.6-2.6 Speci men 85143-0) slightly hemolyzed FADI (test code = FADI) Medical Claims Assistant ID - EDASI Lab Interpretation Normal (test code = 98441-4) [facility] HospitalMAGNESIUM2020-10-16 15:18:00 Test Item Value Reference Range Interpretation Comments MAGNESIUM (BEAKER) 2.2 mg/dL 1.6-2.6 Specimen slightly (test code = 627) hemolyzed Medical Claims Assistant ID - [id number] 15:18:00 Test Item Value Reference Range Interpretation Comments POTASSIUM (BEAKER) 3.4 meq/L 3.5-5.1 L Specimen slightly (test code = 379) hemolyzed Medical Claims Assistant ID - EDASISARS-CoV2/RT-PCR (Asymptomatic ONLY)2020-02-28 13:06:00 Test Item Value Reference Range Interpretation Comments SARS-COV2/RT-PCR Negative Not Detected, (test code = Negative, See 58773-4) external report for linked test SARS-COV-2 [facility] CARRI PERFORMING LAB (test code = 09458-4) FADI (test code = Negative result for this FADI) test determines that SARS-CoV-2 RNA was not present in the [...] of the Act. Fact Sheet for Healthcare Providers:https://www.EdRover ideSpacenet.IntelliDOT/sites/default/f ayanna/product/documents/F act_Sheet_HC_Providers_L fdq_EUSH-LiC-6.pdf Fact Sheet for Healthcare Patients:https://www.Dinda.com.br.IntelliDOT/sites/default/fi les/product/documents/Fa ct_Sheet_Patients_Lyra_S ARS-CoV-2.pdf Performing Laboratory:[place] [address] [id number] [facility])2020-02-28 13:06:00 Test Item Value Reference Range Interpretation Comments SARS-COV2/RT-PCR (test Negative Not Detected, Negative, code = 8925851) See external report for linked test SARS-COV-[address] [facility] (test code = 8590260) Negative result for this test determines that SARS-CoV-2 RNA was not present in the specimen above the Limit of Detection (LOD). However, Negative results do not preclude SARS-CoV-2 infection and should not be used as the sole basis for treatment or patient management decisions. Negative results mustbe combined with clinical observations, patient history, and epidemiological information. A false negative result may occur if a specimen is improperly collected, transported or handled. A false negative result should be considered if patient's recent exposures or clinical presentation indicate that COVID-19 (SARS-CoV-2) is likely and diagnostic tests for other causes of illness are negative. Re-testing should be considered in cases of suspected false negatives.The limit of detection for this assay is 800 copies/mL.This SARS CoV-2 test is a real-time RT-PCR test intended for the qualitative detection of nucleic acid from SARS-CoV-2 in a nasopharyngeal swab specimen collected from individuals susp ected of COVID-19 by their healthcare provider.This test has not been Food and Drug [...] is revoked under Section 564(g) of the Act.Fact Sheet for Healthcare Providers:https://www.[employer]IntelliDOT/sites/default/files/product/documents/Fact_Shee d_WC_Ggdtsgkxs_Qdkz_OPNQ-KhF-5.pdfFact Sheet for Healthcare Patients:https://www.[employer]com/sites/default/files/product/ documents/Lnhm_Zltiv_Inqmoafz_Yegg_UAXQ-JiP-2.pdfPerforming Laboratory:[facility], [place] [address]BUCT-EHBCZFO METER 2020-02-28 07:38:00 Test Item Value Reference Range Interpretation Comments POC-GLUCOSE METER 150 mg/dL 70-110 H : TESTED A T [facility] 6720 (BEAKER) (test code = EL[facility], 1538) [address]: Medical Claims Assistant/Techni john ID = [id number] for Esperanza Monreal [id number] 06:52:00 Test Item Value Reference Range Interpretation Comments Phosphorus (test code = 3.2 mg/dL 2.3-4.7 2777-1) FADI (test code = FADI) Medical Claims Assistant ID - EDASIOnce on admission and Daily AM afterwards Lab Interpretation (test Normal code = 72875-0) [facility] HospitalCOMPRE[facility]ENSIVE METABOLIC [id number] 06:52:00 Test Item Value Reference Range Interpretation Comments TOTAL PROTEIN 6.8 gm/dL 6.0-8.3 (BEAKER) (test code = 770) ALBUMIN (BEAKER) 3.8 g/dL 3.5-5.0 (test code = 1145) ALKALINE PHOSPHATASE 134 U/L 40-150 (BEAKER) (test code = 346) BILIRUBIN TOTAL 0.3 mg/dL 0.2-1.2 (BEAKER) (test code = 377) SODIUM (BEAKER) (test 139 meq/L 136-145 code = 381) POTASSIUM (BEAKER) 3.6 meq/L 3.5-5.1 (test code = 379) CHLORIDE (BEAKER) 104 meq/L 98-107 (test code = 382) CO2 (BEAKER) (test 27 meq/L 22-29 code = 355) BLOOD UREA NITROGEN 7 mg/dL 7-21 (BEAKER) (test code = 354) CREATININE (BEAKER) 0.69 mg/dL 0.57-1.25 (test code = 358) GLUCOSE RANDOM 183 mg/dL 70-105 H (BEAKER) (test code = 652) CALCIUM (BEAKER) 8.0 mg/dL 8.4-10.2 L (test code = 697) AST (SGOT) (BEAKER) 13 U/L 5-34 (test code = 353) ALT (SGPT) (BEAKER) 16 U/L 6-55 (test code = 347) EGFR (BEAKER) (test 88 mL/min/1.73 ESTIMA DARIELA GFR IS code = 1092) sq m NOT ACCURATE CREATININE CLEARANCE IN PREDICTING GLOMERULAR FILTRATION RATE . ESTIMATED GFR I S NOT APPLICABLE FOR DIALYSIS PATIEN TS. Medical Claims Assistant ID - EDASIOnce on admission and Daily AM [id number] 06:52:00 Test Item Value Reference Range Interpretation Comments MAGNESIUM (BEAKER) (test code = 1.8 mg/dL 1.6-2.6 627) Medical Claims Assistant ID - EDASIOnce on admission and Daily AM [id number] 06:52:00 Test Item Value Reference Range Interpretation Comments PHOSPHORUS (BEAKER) (test code = 3.2 mg/dL 2.3-4.7 604) Medical Claims Assistant ID - EDASIOnce on admission and Daily AM afterwardsTROPONIN [id number] 06:32:00 Test Item Value Reference Range Interpretation Comments TROPONIN I (BEAKER) (test code = 397) < ng/mL 0.00-0.03 Troponin I (TnI) levels must [...] failure, acidosis, acute neurological disease, and persistent tachyarrhythmia.Medical Claims Assistant ID - EDASICBC W/PLT COUNT & AUTO [id number] 06:17:00 Test Item Value Reference Range Interpretation Comments WHITE BLOOD CELL COUNT (BEAKER) 17.5 K/ L 3.5-10.5 H (test code = 775) RED BLOOD CELL COUNT (BEAKER) 4.40 M/ L 3.93-5.22 (test code = 761) HEMOGLOBIN (BEAKER) (test code = 12.7 GM/DL 11.2-15.7 410) HEMATOCRIT (BEAKER) (test code = 38.7 % 34.1-44.9 411) MEAN CORPUSCULAR VOLUME (BEAKER) 88.0 fL 79.4-94.8 (test code = 753) MEAN CORPUSCULAR HEMOGLOBIN 28.9 pg 25.6-32.2 (BEAKER) (test code = 751) MEAN CORPUSCULAR HEMOGLOBIN CONC 32.8 GM/DL 32.2-35.5 (BEAKER) (test code = 752) RED CELL DISTRIBUTION WIDTH 13.7 % 11.7-14.4 (BEAKER) (test code = 412) PLATELET COUNT (BEAKER) (test 377 K/CU MM 150-450 code = 756) MEAN PLATELET VOLUME (BEAKER) 9.7 fL 9.4-12.3 (test code = 754) NUCLEATED RED BLOOD CELLS 0 /100 WBC 0-0 (BEAKER) (test code = 413) NEUTROPHILS RELATIVE PERCENT 82 % (BEAKER) (test code = 429) LYMPHOCYTES RELATIVE PERCENT 13 % (BEAKER) (test code = 430) MONOCYTES RELATIVE PERCENT 4 % (BEAKER) (test code = 431) EOSINOPHILS RELATIVE PERCENT 0 % (BEAKER) (test code = 432) BASOPHILS RELATIVE PERCENT 0 % (BEAKER) (test code = 437) NEUTROPHILS ABSOLUTE COUNT 14.34 K/ L 1.56-6.13 H (BEAKER) (test code = 670) LYMPHOCYTES ABSOLUTE COUNT 2.31 K/ L 1.18-3.74 (BEAKER) (test code = 414) MONOCYTES ABSOLUTE COUNT (BEAKER) 0.74 K/ L 0.24-0.36 H (test code = 415) EOSINOPHILS ABSOLUTE COUNT 0.01 K/ L 0.04-0.36 L (BEAKER) (test code = 416) BASOPHILS ABSOLUTE COUNT (BEAKER) 0.03 K/ L 0.01-0.08 (test code = 417) IMMATURE GRANULOCYTES-RELATIVE 1 % 0-1 PERCENT (BEAKER) (test code = 2801) POCT-GLUCOSE [id number] 02:43:00 Test Item Value Reference Range Interpretation Comments POC-GLUCOSE METER 275 mg/dL 70-110 H : TESTED A T [facility] 6720 (BEAKER) (test code = [place], 1538) [address]: Medical Claims Assistant/Techni john ID = [id number] for LAN KIMBLE CT, BRAIN, WITHOUT [id number] 02:27:00Unlisted Reason for Exam - Click Yes and Enter Reason Below->No [facility] : 1960 Sex: FFINAL REPORT CT Head without contrast CLINICAL HISTORY: Intracranial hemorrhage, follow up TECHNIQUE: Contiguous axial images through the head without contrast. This exam was performed according to the departmental dose optimization program which includes automated exposure control, adjustment of the mA and/or kV according to the patient size, and/or use of an iterative re construction technique. COMPARISON: None FINDINGS:Subdural hematoma along the right cerebral convexity measuring up to 9 mm in maximum thickness with mass effect on adjacent structures including the right lateral ventricle. There is 9 mm of leftward midline shift. Thin subdural hematoma along the right falx and tentorial leaflet. There is periventricular and subcortical white matter hypodensity which is nonspecific but compatible with chronic microvascular ischemic change. There are atheroscleroticcalcifications of the intracranial circulation. No evidence of hydrocephalus.There is no CT evidenceof acute infarct . Basilar cisterns are patent. The skull is intact. The visualized paranasal sinuses are well-aerated. Intraorbital contents are unremarkable. IMPRESSION: Subdural hematoma alongthe right cerebral convexity with mass effect on adjacent structures including the right lateral ventricle salting and 9 mm of leftward midline shift. Thin subdural hematoma along the right falx and t entorial leaflet. Signed: Lucy Cameron MDReport Verified Date/Time: 02/28/2020 02:27:59 Type and screen, [id number] 23:54:00 Test Item Value Reference Range Interpretation Comments ABO/RH AUTOMATED (BEAKER) (test O POSITIVE code = 2260) Ab Scrn (test code = 890-4) NEGATIVE [facility] HospitalHepatic function [id number] 23:28:00 Test Item Value Reference Range Interpretation Comments Protein, Total (test code 7.5 6.0- 8.3 gm/dL = 2885-2) Albumin (test code = 4.1 g/dL 3.5-5 42183-2) Total Bilirubin (test code 0.4 mg/dL 0.2-1.2 = 1975-2) Bilirubin, Direct (test 0.3 mg/dL 0.1-0.5 code = 1967-7) Alkaline Phosphatase (test 167 U/L 40-150 H code = 6768-6) AST (test code = 1920-8) 15 U/L 5-34 ALT (test code = 1742-6) 16 U/L 6-55 FADI (test code = FADI) Medical Claims Assistant ID - PIAYA L Lab Interpretation (test Abnormal code = 71276-6) [facility] HospitalCOMPREHENSIVE METABOLIC [id number] 23:28:00 Test Item Value Reference Range Interpretation Comments TOTAL PROTEIN 7.5 gm/dL 6.0-8.3 (BEAKER) (test code = 770) ALBUMIN (BEAKER) 4.1 g/dL 3.5-5.0 (test code = 1145) ALKALINE PHOSPHATASE 167 U/L 40-150 H (BEAKER) (test code = 346) BILIRUBIN TOTAL 0.4 mg/dL 0.2-1.2 (BEAKER) (test code = 377) SODIUM (BEAKER) (test 135 meq/L 136-145 L code = 381) POTASSIUM (BEAKER) 2.7 meq/L 3.5-5.1 L (test code = 379) CHLORIDE (BEAKER) 101 meq/L 98-107 (test code = 382) CO2 (BEAKER) (test 23 meq/L 22-29 code = 355) BLOOD UREA NITROGEN 6 mg/dL 7-21 L (BEAKER) (test code = 354) CREATININE (BEAKER) 0.72 mg/dL 0.57-1.25 (test code = 358) GLUCOSE RANDOM 263 mg/dL 70-105 H (BEAKER) (test code = 652) CALCIUM (BEAKER) 8.5 mg/dL 8.4-10.2 (test code = 697) AST (SGOT) (BEAKER) 15 U/L 5-34 (test code = 353) ALT (SGPT) (BEAKER) 16 U/L 6-55 (test code = 347) EGFR (BEAKER) (test 83 mL/min/1.73 ESTIMA DARIELA GFR IS code = 1092) sq m NOT ACCURATE CREATININE CLEARANCE IN PREDICTING GLOMERULAR FILTRATION RATE . ESTIMATED GFR I S NOT APPLICABLE FOR DIALYSIS PATIEN TS. Medical Claims Assistant ID - LUCIO LHEPATIC FUNCTION [id number] 23:28:00 Test Item Value Reference Range Interpretation Comments TOTAL PROTEIN (BEAKER) (test code = 7.5 gm/dL 6.0-8.3 770) ALBUMIN (BEAKER) (test code = 1145) 4.1 g/dL 3.5-5.0 BILIRUBIN TOTAL (BEAKER) (test code 0.4 mg/dL 0.2-1.2 = 377) BILIRUBIN DIRECT (BEAKER) (test 0.3 mg/dL 0.1-0.5 code = 706) ALKALINE PHOSPHATASE (BEAKER) (test 167 U/L 40-150 H code = 346) AST (SGOT) (BEAKER) (test code = 15 U/L 5-34 353) ALT (SGPT) (BEAKER) (test code = 16 U/L 6-55 347) Medical Claims Assistant WERNER VALDES [id number] 23:21:00 Test Item Value Reference Range Interpretation Comments Fibrinogen (test code = 3255-7) 413 mg/dl 225-434 Lab Interpretation (test code = Normal 16790-2) [facility] HospitalaPTT2020-10-[facility] 23:21:00 Test Item Value Reference Range Interpretation Comments PTT (test code = 62952-4) 26.2 22.5- 36.0 seconds Lab Interpretation (test code = Normal 85764-6) [facility] HospitalFIBRINOGEN2020-10-15 23:21:00 Test Item Value Reference Range Interpretation Comments FIBRINOGEN LEVEL (BEAKER) (test 413 mg/dl 225-434 code = 658) [id number] 23:21:00 Test Item Value Reference Range Interpretation Comments PARTIAL THROMBOPLASTIN TIME 26.2 seconds 22.5-36.0 (BEAKER) (test code = 760) Prothrombin time/[id number] 23:20:00 Test Item Value Reference Range Interpretation Comments Protime (test code = 13.3 11.9- 14.2 5902-2) seconds INR (test code = 1.04 <=5.90 6301-6) FADI (test code = FADI) Effective 10/10/2018: PT Reference Range ChangeNew: 11.9-14.2 Previous: 11.7-14.7 RECOMMENDED COUMADIN/WARFARIN INR THERAPY RANGESSTANDARD DOSE: 2.0-3.0 Includes: PROPHYLAXIS for venous thrombosis, systemic embolization; TREATMENT for venous thrombosis and/or pulmonary embolus.HIGH RISK: Target INR is 2.5-3.5 for patients wiht mechanical heart valves. Lab Interpretation Normal (test code = 48120-7) [facility][id number] 23:20:00 Test Item Value Reference Range Interpretation Comments PROTIME (BEAKER) (test code = 13.3 seconds 11.9-14.2 759) INR (BEAKER) (test code = 370) 1.04 <=5.90 Effective 10/10/2018: PT Reference Range ChangeNew: 11.9-14.2 Previous: 11.7- 14.7RECOMMENDED COUMADIN/WARFARIN INR THERAPY RANGESSTANDARD DOSE: 2.0-3.0 Includes: PROPHYLAXIS for venous thrombosis, systemic embolization; TREATMENT for venous thrombosis and/or pulmonary embolus.HIGH RISK: Target INR is2.5-3.5 for patients wiht mechanical heart valves.CBC W/PLT COUNT & AUTO [id number] 23:15:00 Test Item Value Reference Range Interpretation Comments WHITE BLOOD CELL COUNT (BEAKER) 20.6 K/ L 3.5-10.5 H (test code = 775) RED BLOOD CELL COUNT (BEAKER) 4.53 M/ L 3.93-5.22 (test code = 761) HEMOGLOBIN (BEAKER) (test code = 13.1 GM/DL 11.2-15.7 410) HEMATOCRIT (BEAKER) (test code = 39.4 % 34.1-44.9 411) MEAN CORPUSCULAR VOLUME (BEAKER) 87.0 fL 79.4-94.8 (test code = 753) MEAN CORPUSCULAR HEMOGLOBIN 28.9 pg 25.6-32.2 (BEAKER) (test code = 751) MEAN CORPUSCULAR HEMOGLOBIN CONC 33.2 GM/DL 32.2-35.5 (BEAKER) (test code = 752) RED CELL DISTRIBUTION WIDTH 13.6 % 11.7-14.4 (BEAKER) (test code = 412) PLATELET COUNT (BEAKER) (test 384 K/CU MM 150-450 code = 756) MEAN PLATELET VOLUME (BEAKER) 9.6 fL 9.4-12.3 (test code = 754) NUCLEATED RED BLOOD CELLS 0 /100 WBC 0-0 (BEAKER) (test code = 413) NEUTROPHILS RELATIVE PERCENT 82 % (BEAKER) (test code = 429) LYMPHOCYTES RELATIVE PERCENT 12 % (BEAKER) (test code = 430) MONOCYTES RELATIVE PERCENT 5 % (BEAKER) (test code = 431) EOSINOPHILS RELATIVE PERCENT 0 % (BEAKER) (test code = 432) BASOPHILS RELATIVE PERCENT 0 % (BEAKER) (test code = 437) NEUTROPHILS ABSOLUTE COUNT 16.92 K/ L 1.56-6.13 H (BEAKER) (test code = 670) LYMPHOCYTES ABSOLUTE COUNT 2.43 K/ L 1.18-3.74 (BEAKER) (test code = 414) MONOCYTES ABSOLUTE COUNT (BEAKER) 0.96 K/ L 0.24-0.36 H (test code = 415) EOSINOPHILS ABSOLUTE COUNT 0.08 K/ L 0.04-0.36 (BEAKER) (test code = 416) BASOPHILS ABSOLUTE COUNT (BEAKER) 0.04 K/ L 0.01-0.08 (test code = 417) IMMATURE GRANULOCYTES-RELATIVE 1 % 0-1 PERCENT (BEAKER) (test code = 2801) [id number] 00:00:00Ordered by an unspecified provider.[facility] AB [id number] 07:43:00 Test Item Value Reference Range Interpretation Comments Islet Cell Ab Profile Refer to individual (test code = 2556) Islet Cell Ab and/or Islet Cell Ab Titer results. [facility]IS[facility] CELL AB [id number] 07:43:00 Test Item Value Reference Range Interpretation Comments ISLET CELL AB Refer to individual AUTOVERIFICATION (test Islet Cell Ab code = 2556) and/or Islet Cell Ab Titer results. [id number] 10:16:00 Test Item Value Reference Range Interpretation Comments MERRICK-65 <5 <5 IU/mL This test was performed (test code using the GAD65 TAWNYA = 3214) method which is standardizedaga inst the International r eference preparation 97/ 550. FADI (test Performing Lab code = FADI) [facility] [address] [place] [address] Irlanda Ocampo MD, PhD, ANISH [facility] HospitalIslet Cell Ab [id number] 01:23:00 Test Item Value Reference Range Interpretation Comments Islet Cell NEGATIVE NEGATIVE This test was developed Ab (test and its analyti erwin code = performance 4703215) characteristics havebeen determined by [facility].It h as not been cleared or approved by FDA. This as say has been validatedp ursuant to the CLIA reg ulations and is used for clinical purposes. FADI (test Performing Lab code = FADI) [facility] [address] [place] [address] Irlanda Ocampo MD, PhD, ANISH [facility] HospitalIs[facility] Cell Ab [id number] 01:23:00 Test Item Value Reference Range Interpretation Comments Islet Cell TNP LESS THAN 1.25 Test Not Perf ormed. Ab Titer JDF units Screening test Negative (test code = or Not Detected . Titer 40188-8) notperformed. N OTE: End point titers ar e compared to a s gloria international referencestanda rd and values are repo rted in JDF (Juvenile D iabetes Foundation) uni ts. FADI (test Performing Lab code = FADI) [employer] [facility] [address] [place] [address] Irlanda Ocampo MD, PhD, ANISH [facility] HospitalECG 12 [id number] 14:36:48Interface, External Ris In - 04/28/2019 2:36 PM CSTVentricular Rate 75 BPMAtrial Rate 75 BPMP-R Interval 150 msQRS Duration 142 msQ-T Interval 416 msQTC Calculation(Geovannizeemma) 464 msP Jenner 54 degreesR Jenner -44 degreesT Jenner 108 degreesNormal sinus rhythmLeft axis deviationLeft bundle branch blockAbnormal ECGWhen compared with ECG of 27-APR-2019 07:00,QRS axis Shifted leftConfirmed by MD ALICIA, SAVITA([id number]) on 04/28/2019 2:36:47 [facility] [id number] 12:34:00 Test Item Value Reference Range Interpretation Comments POC-GLUCOSE METER 208 mg/dL 70-110 H : TESTED A T [facility] 6720 ([employer]) (test code = OrbFlexNH Narr8 [facility], 1538) [address]: Medical Claims Assistant/Techni john ID = [id number] for BRINAGuy MORALEZ MAX POCT-GLUCOSE [id number] 08:26:00 Test Item Value Reference Range Interpretation Comments POC-GLUCOSE METER 145 mg/dL 70-110 H : TESTED A T [facility] 6720 (BEAKER) (test code = Rogate [facility], 1538) 9[address]: Medical Claims Assistant/Techni john ID = [id number] for HILARY ALBARRAN Basic Metabolic [id number] 06:31:00 Test Item Value Reference Range Interpretation Comments Sodium (test code = 137 meq/L 312-936 9659-2) Potassium (test code = 3.5 meq/L 3.5-5.1 2823-3) Chloride (test code = 105 meq/L 98-107 2075-0) CO2 (test code = 27 meq/L 22-29 2028-9) BUN (test code = 12 mg/dL 7-21 3094-0) Creatinine (test code = 0.61 mg/dL 0.57-1.25 2160-0) Glucose (test code = 128 mg/dL 70-105 H 2345-7) Calcium (test code = 8.1 mg/dL 8.4-10.2 L 50067-2) EGFR (test code = 101 mL/min/1.73 [place] [address]-2) NOT ACCURATE CREATININE CLEARANCE IN PREDICTING GLOMERULAR FILTRATION RATE . ESTIMATED GFR I S NOT APPLICABLE FOR DIALYSIS PATIEN TS. Lab Interpretation Abnormal (test code = 98970-0) [facility] HospitalBUN and [id number] 06:31:00 Test Item Value Reference Range Interpretation Comments BUN (test code = 12 mg/dL 7-21 3094-0) Creatinine (test code 0.61 mg/dL 0.57-1.25 = 2160-0) EGFR (test code = 101 mL/min/1.73 [place] [address]-0) ACCURATE CREATININE DAVID AIME IN PREDICTING GLOMERULAR FILT RATION RATE. ESTIMATED GFR IS NOT APPLICAB LE FOR DIALYSIS PATIEN TS. [facility] HospitalMAGNESIUM2019-12-15 06:31:00 Test Item Value Reference Range Interpretation Comments MAGNESIUM (BEAKER) (test code = 1.6 mg/dL 1.6-2.6 627) BUN AND [id number] 06:31:00 Test Item Value Reference Range Interpretation [...] APPLICABLE FOR DIALYSIS PATIEN TS. BASIC METABOLIC [id number] 06:31:00 Test Item Value Reference Range Interpretation [...] 450 K/CU MM MPV (test code = 80634-6) 9.9 fL 9.4-12.3 nRBC (test code = 413) 0 0- 0 /100 WBC Lab Interpretation (test code = Abnormal 32350-1) [facility] HospitalCBC (HEMOGRAM ONLY)2019-04-28 05:33:00 Test Item Value Reference [...] MEAN CORPUSCULAR HEMOGLOBIN CONC 32.2 GM/DL 32.2-35.5 (AKER) (test code = 752) RED CELL DISTRIBUTION WIDTH 13.5 % 11.7-14.4 (AKER) (test code = 412) PLATELET COUNT (AKER) (test 319 K/CU MM 150-450 code = 756) MEAN PLATELET VOLUME (BEAKER) 9.9 fL 9.4-12.3 (test code = 754) NUCLEATED RED BLOOD CELLS 0 /100 WBC 0-0 (AKER) (test code = 413) POCT-GLUCOSE [id number] 22:02:00 Test Item Value Reference Range Interpretation Comments POC-GLUCOSE METER 214 mg/dL 70-110 H : TESTED A T [facility] 6720 ([facility]) (test code = [facility], 1538) [address]: Medical Claims Assistant/Techni john ID = [id number] for LAITH NOVOA KAREN POCT-GLUCOSE [id number] 17:34:00 Test Item Value Reference Range Interpretation Comments POC-GLUCOSE METER 178 mg/dL 70-110 H : TESTED A T [facility] 6720 (BEAKER) (test code = [facility], 1538) 022[address]: Medical Claims Assistant/Techni john ID = [id number] for Guy MORRIS POCT-GLUCOSE [id number] 17:33:00 Test Item Value Reference Range Interpretation Comments POC-GLUCOSE METER 222 mg/dL 70-110 H : TESTED A T [facility] 6720 (BEAKER) (test code = [facility], 1538) 59[address]: Medical Claims Assistant/Techni john ID = [id number] for SRIKANTH FIGUEROA POCT-GLUCOSE [id number] 08:07:00 Test Item Value Reference Range Interpretation Comments POC-GLUCOSE METER 174 mg/dL 70-110 H : TESTED A T [facility] 6720 (BEAKER) (test code = [facility], 1538) 92993: Medical Claims Assistant/Techni john ID = [id number] for [place] LLIAMS, TYNEKA RAD, CHEST, 1 VIEW, NON [id number] 08:04:00Reason for exam:->CIED ImplantationIs the patient ?->UnknownShould [...] MDReport Verified Date/Time: 04/27/2019 08:04:20 Reading Location: [address] Neuro Reading Room XR chest 1 view portable / [id number] 08:04:00Interface, External Ris In - 04/27/2019 8:06 [...] Lee Verified Date/Time: 04/27/2019 08:04:20 Reading Location: [address] Neuro Reading Room [facility] HospitalMAGNESIUM2019-12-14 06:48:00 Test Item Value Reference Range Interpretation Comments MAGNESIUM (BEAKER) (test code = 1.7 mg/dL 1.6-2.6 627) BUN AND [id number] 06:48:00 Test Item Value Reference Range Interpretation [...] APPLICABLE FOR DIALYSIS PATIEN TS. BASIC METABOLIC [id number] 06:48:00 Test Item Value Reference Range Interpretation [...] 0-0 (AKER) (test code = 413) POCT-GLUCOSE [id number] 21:23:00 Test Item Value Reference Range Interpretation Comments POC-GLUCOSE METER 209 mg/dL 70-110 H : TESTED A T [facility] 6720 ([facility]) (test code = [facility], 1538) 49856: Medical Claims Assistant/Techni john ID = [id number] for KAREN TEIXEIRA POCT-GLUCOSE [id number] 18:13:00 Test Item Value Reference Range Interpretation Comments POC-GLUCOSE METER 280 mg/dL 70-110 H : TESTED A T [facility] 6720 ([facility]) (test code [facility], = 1538) 74237: Medical Claims Assistant/Techni john ID = [id number] for LAITHGEOFF HUMPHREYS RAD, CHEST, 1 VIEW, NON [id number] 14:36:00Reason for exam:->CIED ImplantationShould this be performed at the bedside?->YesFINAL REPORT INDICATION: CIED Implantation COMPARISON: None TECHNIQUE: Single frontal view of the chest. FINDINGS: Lungs and pleura: Lungs are hypoinflated. No effusion.Heart andmediastinum: Normal heart size. Unremarkable mediastinal contours.Osseous structures: No acute abnormality.Other: Pacer device. IMPRESSION: No pneumothorax Signed: Rowena Lay Verified Date/Time: 04/26/2019 14:36:47 Reading Location: [facility] Radiology Reading Room -GLUCOSE [id number] 10:40:00 Test Item Value Reference Range Interpretation Comments POC-GLUCOSE METER 204 mg/dL 70-110 H : TESTED A T [facility] 6720 (BEAKER) (test code = [facility], 1538) 61420: Medical Claims Assistant/Techni john ID = [id number] for JOURDAN ESCALANTE 2D Echo W/Doppler(CW/PW/Color)2019-04-26 09:09:36Ejection FractionSLEH ECHO HEARTLAB MKCKESSON CPACSInterface, External Ris In - 04/26/2019 9:09 AM C STTransthoracic Echocardiography Report (TTE) Demographics Patient Name CHRISSIE MUÑOZ Date ofStudy 04/25/2019 Gender Female Visit Number [id number] Race Unknown Room Number C827 Number Date of 1960 Referring Lona Tovar Physician Age 59 year(s) 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 Junie Marquez [facility], [facility] House Supervisor Kade Ellis Interpreting Kayden Owens MD Physician Fellow Ismael Brink MD Procedure Type of Study TTE procedure:2DECHO W DOPPLER(CW/PW/COLOR) (Routine) Indications:Acute Chest Pain/ Suspected CAD.Clinical HistoryHGB 14.2HCT 42.5 [...] CO: 4.03 l/min LVOT CI: 2.16 l/min/m^2[facility] CenterMAG[facility]UM2019-12-13 04:42:00 Test Item Value Reference Range Interpretation Comments MAGNESIUM (BEAKER) (test code = 1.8 mg/dL 1.6-2.6 627) BASIC METABOLIC [id number] 04:42:00 Test Item Value Reference Range Interpretation [...] 0-0 (BEAKER) (test code = 413) POCT-GLUCOSE [id number] 21:56:00 Test Item Value Reference Range Interpretation Comments POC-GLUCOSE METER 381 mg/dL 70-110 H : Notified RN/MD: ([facility]) (test code = TESTED AT [facility] 6720 1538) [facility], [address]: Medical Claims Assistant/Techni john ID = [id number] for SONIA MAHER TROPONIN [id number] 17:20:00 Test Item Value Reference Range Interpretation Comments TROPONIN I ([facility]) (test code = 0.12 ng/mL 0.00-0.03 H [...] acidosis, acute neurological disease, and persistent tachyarrhythmia.POCT-GLUCOSE [id number] 11:55:00 Test Item Value Reference Range Interpretation Comments POC-GLUCOSE METER 163 mg/dL 70-110 H : TESTED A T [facility] 6720 ([facility]) (test code = ELMO Miranda [facility], 1538) [address]: Medical Claims Assistant/Techni john ID = [id number] for [place] TELMA CARRANZA Creatine Kinase (CK)2019-04-25 11:26:00 Test Item Value Reference Range Interpretation Comments Total CK (test code = 2157-6) 63 U/L 29-200 Lab Interpretation (test code = Normal 86665-5) [facility] HospitalCREATINE KINASE (CK)2019-04-25 11:26:00 Test Item Value Reference Range Interpretation Comments CREATINE KINASE TOTAL (BEAKER) (test 63 U/L 29-200 code = 380) TROPONIN [id number] 10:05:00 Test Item Value Reference Range Interpretation Comments TROPONIN I (LANAKER) (test code = 0.18 ng/mL 0.00-0.03 H [...] acidosis, acute neurological disease, and persistent tachyarrhythmia.POCT-GLUCOSE [id number] 08:18:00 Test Item Value Reference Range Interpretation Comments POC-GLUCOSE METER 163 mg/dL 70-110 H : TESTED A T [facility] 6720 (LANAKER) (test code = [facility], 1538) [address]: Medical Claims Assistant/Techni john ID = [id number] for [place] TELMA CARRANZA TROPONIN [id number] 06:47:00 Test Item Value Reference Range Interpretation Comments TROPONIN I (LANAKER) (test code = 0.23 ng/mL 0.00-0.03 HH 397) Troponin I (TnI) levels must be [...] acidosis, acute neurological disease, and persistent tachyarrhythmia.Lipid [id number] 06:41:00 Test Item Value Reference Range Interpretation Comments Triglycerides (test 117 mg/dL Specimen code = 2571-8) slightly hemolyzed Cholesterol (test 122 mg/dL Specimen code = 2093-3) slightly hemolyzed HDL (test code = 36 mg/dL 2084-9) LDL Calculated (test 63 mg/dL code = 90862-3) FADI (test code = Triglyceride FADI) Reference Range: Low Risk <150 Borderline 150-199 High Risk 200-499 Very High Risk >=500 Cholesterol Reference Range: Low Risk <200 Borderline 200-239 High Risk >240 HDL Cholesterol Reference Range: Low Risk >=60 High Risk <40 LDL Cholesterol Reference Range: Optimal <100 Near Optimal 100-129 Borderline 130-159 High 160-189 Very High >=190 [facility] Center[facility]UM2019-12-12 06:41:00 Test Item Value Reference Range Interpretation Comments MAGNESIUM (BEAKER) 2.4 mg/dL 1.6-2.6 Specimen slightly (test code = 627) hemolyzed BASIC METABOLIC [id number] 06:41:00 Test Item Value Reference Range Interpretation [...] NOT APPLICABLE FOR DIALYSIS PATIEN TS. LIPID [id number] 06:41:00 Test Item Value Reference Range Interpretation [...] 100-129 Borderline 130-159 High 160-189 Very High >=[id number] 06:07:00 Test Item Value Reference Range Interpretation [...] = 413) RAD, CHEST, 1 VIEW, NON [id number] 01:00:00Reason for exam:->transvenous PM placementShould this be [...] limits. Additional findings: None available. Signed: [facility] Verified Date/Time: 04/25/2019 01:00:56 TROPONIN [id number] 23:56:00 Test Item Value Reference Range Interpretation [...] failure, acidosis, acute neurological disease, and persistent tachyarrhythmia.[id number] 23:47:00 Test Item Value Reference Range Interpretation Comments MAGNESIUM (BEAKER) 1.6 mg/dL 1.6-2.6 Specimen slightly (test code = 627) hemolyzed [id number] 23:47:00 Test Item Value Reference Range Interpretation Comments PHOSPHORUS (BEAKER) 3.2 mg/dL 2.3-4.7 Specimen slightly (test code = 604) hemolyzed COMPREHENSIVE METABOLIC [id number] 23:47:00 Test Item Value Reference Range Interpretation [...] APPLICABLE FOR DIALYSIS PATIEN TS. Lactic acid, [id number] 23:41:00 Test Item Value Reference Range Interpretation Comments Lactate, Venous (test 1.1 mmol/L 0.5-2.2 Specim en slightly code = 2872) hemolyzed Lab Interpretation (test Normal code = 90553-5) [facility] HospitalPT/[id number] 23:41:00 Test Item Value Reference Range Interpretation Comments Protime (test code = 13.8 11.9- 14.2 5902-2) seconds INR (test code = 1.1 <=5.9 6301-6) PTT (test code = 31.1 22.5- 36.0 54560-1) seconds FADI (test code = FADI) Effective 10/10/2018: PT Reference Range ChangeNew: 11.9-14.2 Previous: 11.7-14.7 RECOMMENDED COUMADIN/WARFARIN INR THERAPY RANGESSTANDARD DOSE: 2.0-3.0 Includes: PROPHYLAXIS for venous thrombosis, systemic embolization; TREATMENT for venous thrombosis and/or pulmonary embolus.HIGH RISK: Target INR is 2.5-3.5 for patients wiht mechanical heart valves. Prior to initiating heparinPrior to initiating heparin Lab Interpretation Normal (test code = 57513-6) [facility] HospitalPT/[id number] 23:41:00 Test Item Value Reference Range Interpretation [...] heart valves.Prior to initiating heparinPrior to initiating [id number] 23:41:00 Test Item Value Reference Range Interpretation Comments PARTIAL THROMBOPLASTIN TIME 31.1 seconds 22.5-36.0 (BEAKER) (test code = 760) LACTIC ACID, [id number] 23:41:00 Test Item Value Reference Range Interpretation Comments LACTATE BLOOD VENOUS 1.1 mmol/L 0.5-2.2 Specime n slightly (2) (BEAKER) (test hemolyzed code = 2872) Platelet [id number] 23:31:00 Test Item Value Reference Range Interpretation Comments Platelets (test code = 777-3) 348 150- 450 K/CU MM Lab Interpretation (test code = Normal 96888-2) [facility] HospitalPLATELET [id number] 23:31:00 Test Item Value Reference Range Interpretation Comments PLATELET COUNT (BEAKER) (test 348 K/CU MM 150-450 code = 756) POCT-GLUCOSE [id number] 23:27:00 Test Item Value Reference Range Interpretation Comments POC-GLUCOSE METER 244 mg/dL 70-110 H : TESTED A T [place] [address] (BEAKER) (test code = [facility], 1538) [address]: Medical Claims Assistant/Techni john ID = [id number] for SA NCHEZ, MARQUITA POC ACTIVATED CLOTTING [id number] 18:39:00 Test Item Value Reference Range Interpretation Comments Activated Clotting Time 301 sec Refe rence Range: 74-137 (test code = 441) seconds, B aseline/TESTED AT [place] [address] [facility] 7[address] [facility] HospitalPOCT-[id number] 18:39:00 Test Item Value Reference Range Interpretation Comments ACTIVATED CLOTTING TIME 301 sec Refe rence Range: (BEAKER) (test code = 74-137 seconds, 441) Baseline/TESTED AT [address] [address] [id number] 18:04:00 Test Item Value Reference Range Interpretation Comments ACTIVATED CLOTTING TIME 252 sec Refe rence Range: (BEAKER) (test code = 74-137 seconds, 441) Baseline/TESTED AT [place] [address] [facility] 7703 0 [id number] 17:49:00 Test Item Value Reference Range Interpretation Comments ACTIVATED CLOTTING TIME 235 sec Refe rence Range: (BEAKER) (test code = 74-137 seconds, 441) Baseline/TESTED AT [place] [address] [facility] 7703 0 POCT-GLUCOSE [id number] 13:18:00 Test Item Value Reference Range Interpretation Comments POC-GLUCOSE METER 187 mg/dL 70-110 H : TESTED A T [place] [id number] (BEAKER) (test code = [facility], 1538) [address]: Medical Claims Assistant/Techni john ID = [id number] for ANANDA BLACKMON [id number] 12:52:00 Test Item Value Reference Range Interpretation Comments PARTIAL THROMBOPLASTIN TIME 42.7 seconds 22.5-36.0 H (YOON) (test code = 760) POCT-GLUCOSE [id number] 09:59:00 Test Item Value Reference Range Interpretation Comments POC-GLUCOSE METER 252 mg/dL 70-110 H : [facility] ([facility] (test code = [facility], 1538) [address]: Medical Claims Assistant/Techni john ID = [id number] for OR ANANDA FERRARA Carotid doppler [id number] 08:36:08Ejection [facility] ECHO HEARTLAB MKCKESSON CPACSRight Impression1. There is [...] of Study 04/24/2019 Age 59 Visit Number [id number] Gender Female Accession Number [id number] Date of 1960 Referring Daryl Pablo, Room Number 1114 Physician 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 Ehsan Kaplan Interpreting Lorenza Benoit MD Physician ProcedureType of Study: Cerebral: Carotid, CAROTID DOPPLER, BILATE RAL. Indications for Study:Possible Bypass.Patient Status:Routine.Study Location:Portable.Technical Quality:Adequate visualization. - Results were reported to: EMMIE Bharati @ 6:15AM.Risk FactorsHistory of Disease+ +----+ --+!Diagnosis [...] the left side. - Additional Measurements:ICAPSV/CCAPSV 5.88.ICAEDV/CCAEDV 5.56.[facility] HEMOGLOBIN [id number] 08:35:00 Test Item Value Reference Range Interpretation Comments HEMOGLOBIN A1C (BEAKER) (test code = 11.5 % 4.3-6.1 H 368) [id number] 06:09:00 Test Item Value Reference Range Interpretation Comments PARTIAL THROMBOPLASTIN TIME 39.5 seconds 22.5-36.0 H (BEAKER) (test code = 760) DANYELLEFabiola, [id number] 02:54:00 Test Item Value Reference Range Interpretation Comments ABO Grouping (test code = 2588) O Rh Factor (test code = 2589) POS [facility] HospitalBASIC METABOLIC [id number] 23:24:00 Test Item Value Reference Range Interpretation [...] S NOT APPLICABLE FOR DIALYSIS PATIEN TS. [id number] 23:15:00 Test Item Value Reference Range Interpretation Comments PARTIAL THROMBOPLASTIN TIME 28.7 seconds 22.5-36.0 (BEAKER) (test code = 760) Prior to initiating heparinPROTHROMBIN TIME/[id number] 23:14:00 Test Item Value Reference Range Interpretation [...] infusion and as indicated per sliding scaleCBC W/PLT COUNT & AUTO [id number] 23:10:00 Test Item Value Reference Range Interpretation [...] PERCENT (BEAKER) (test code = 2801) POCT-GLUCOSE [id number] 22:59:00 Test Item Value Reference Range Interpretation Comments POC-GLUCOSE METER 194 mg/dL 70-110 H : TESTED A T [facility] 6720 (BEAKER) (test code = [facility] [place], 1538) [address]: Medical Claims Assistant/Techni john ID = [id number] for Mary Kate Mccoy
[2020-03-13 00:30] LABS: Absolute Lymphocytes (CBC) 3.8 K/uL (0.7-4.9); Basophils % 1.3 % (0-1.3); Hematocrit 37.3 % (36.0-45.0); Lymphocytes % 24.4 % (15.3-44.8); MPV 7.4 fL (7.6-11.3); RBC Red Blood Cell Count 4.41 M/uL (3.86-4.86)
[2020-03-13 00:35] LABS: Protime INR 1.1
[2020-03-13 00:52] LABS: BUN Blood Urea Nitrogen 7 mg/dL (7-18); Bicarbonate 28 mmol/L (21-32); Glucose Level 245 mg/dL (74-106); Magnesium 1.7 mg/dL (1.8-2.4); Sodium Level 136 mmol/L (136-145); Troponin (Emerg Dept Use Only) < 0.02 ng/mL (0.0-0.045)
[2020-03-13 00:54] LABS: Potassium 2.6 mmol/L (3.5-5.1)
[2020-03-13] MEDS ORDERED: MAGNESIUM SULFATE 1 gm IVPB 1 GM/100 ML BAG IV ONE (01:17)
[2020-03-13] MEDS ORDERED: KCL 20 MEQ/100 mL IVPB 20 MEQ/100 ML BAG IV ONE (01:18)
--- NOTE | 2020-03-13 01:35 | EDPHYS ---
Physician Documentation [facility] Name: Blanca Estrada Age: 59 yrs Sex: Female : 1960 Arrival Date: 03/13/2020 Time: 00:16 Bed 2 Private MD: ED Physician Bal Ohara HPI: 03/13 00:17 This 59 yrs old Female presents to ER via Unassigned with complaints of rn syncope. 00:17 The patient has experienced syncope. Onset: The symptoms/episode began/occurred just rn prior to arrival. Duration: This was a single episode. Associated injury: The patient did not suffer any apparent associated injury. Current symptoms: headache. The patient has not experienced similar symptoms in the past. The patient has been recently seen at the [facility] Emergency Department. Reports walking her dog, felt fine, got to doorway, felt lightheaded and like was going to pass out, called to her family and told them to call 911. Per EMS report, patient had syncopal episode, single episode, followed by some "shaking". Brief. Now back to baseline but with mild headache. Seen 2-3 weeks ago her with non-traumatic subdural hematoma, taken off her blood thinners, now only on aspirin. No trauma. has not felt ill. No preceding chest pain or sob. . Historical: - Allergies: 00:26 Morphine; bb - Home Meds: 00:26 aspirin 81 mg Oral chew 1 tab once daily [Active]; atorvastatin 80 mg Oral tab 1 tab bb once daily [Active]; Fluoxetine Oral [Active]; pantoprazole 40 mg oral TbEC 1 tab once daily [Active]; lisinopril 40 mg Oral tab 1 tab once daily [Active]; tramadol Oral [Active]; carvedilol oral oral [Active]; lispro insulin 100 unit/ml [Active]; glargine insuline 100 units/ml SQ [Active]; - PMHx: 00:26 CAD; Clots in the past; CVA; Diabetes - IDDM; Hyperlipidemia; Hypertension; Myocardial bb infarction; - PSHx: 00:26 Back x 2; pacemaker; kidney surgery; bb - Immunization history:: Adult Immunizations up to date. - Social history:: Smoking status: Patient reports the use of cigarette tobacco products, smokes two packs cigarettes per day. Patient/guardian denies using alcohol, street drugs. - Family history:: not pertinent. - Hospitalizations: : Patient was recently seen at. ROS: 00:17 Constitutional: Negative for fever, chills, and weight loss, Eyes: Negative for injury, rn pain, redness, and discharge, Neck: Negative for injury, pain, and swelling, Cardiovascular: Negative for chest pain, palpitations, and edema, Respiratory: Negative for shortness of breath, cough, wheezing, and pleuritic chest pain, Abdomen/GI: Negative for abdominal pain, nausea, vomiting, diarrhea, and constipation, Back: Negative for injury and pain, MS/Extremity: Negative for injury and deformity, Skin: Negative for injury, rash, and discoloration, Neuro: Negative for weakness, numbness, tingling Exam: 00:17 Constitutional: This is a well developed, well nourished patient who is awake, alert, rn and in no acute distress. Head/Face: Normocephalic, atraumatic. Eyes: Pupils equal round and reactive to light, extra-ocular motions intact. Lids and lashes normal. Conjunctiva and sclera are non-icteric and not injected. Cornea within normal limits. Periorbital areas with no swelling, redness, or edema. Cardiovascular: Regular rate and rhythm. No pulse deficits. Respiratory: Speaking full sentences. No increased work of breathing, no retractions or nasal flaring. Abdomen/GI: soft, non-tender Skin: Warm, dry MS/ Extremity: Pulses equal, no cyanosis. Neurovascular intact. Full, normal range of motion. Equal circumference. Neuro: Awake and alert, GCS 15, oriented to person, place, time, and situation. Cranial nerves II-XII grossly intact. Motor strength 5/5 in all extremities. Sensory grossly intact. Cerebellar exam normal. 00:17 ECG was reviewed by the Attending Physician. Vital Signs: 00:08 BP 179 / 69; Pulse 65; Resp 16 S; Temp 98.6(O); Pulse Ox 97% on R/A; Weight 77.11 kg bb (R); Height 5 ft. 8 in. (172.72 cm) (R); Pain 0/10; 01:00 BP 154 / 83; Pulse 67; Resp 19; Pulse Ox 95% on R/A; jb4 02:00 BP 167 / 69; Pulse 69; Resp 16; Pulse Ox 94% on R/A; jb4 03:00 BP 162 / 85; Pulse 60; Resp 17; Pulse Ox 94% on R/A; jb4 03:50 BP 163 / 68; Pulse 63; Resp 17; Pulse Ox 95% on R/A; jb4 00:08 Body Mass Index 25.85 (77.11 kg, 172.72 cm) bb MDM: 00:16 Patient medically screened. rn 01:28 Differential Diagnosis: cardiac arrhythmia, vasovagal episode, subdural hemorrhage, rn spontaneous intracerebral bleed, TIA, CVA, hyperventilation. Data reviewed: vital signs, nurses notes, lab test result(s), EKG, radiologic studies, CT scan, and as a result, I will admit patient. Counseling: I had a detailed discussion with the patient and/or guardian regarding: the historical points, exam findings, and any diagnostic results supporting the discharge/admit diagnosis, lab results, radiology results, the need to transfer to another facility, for higher level of care, [facility] does not immediately have the required specialist. Response to treatment: the patient's symptoms have mildly improved after treatment, and as a result, I will admit patient. Admission orders: after a detailed discussion of the patient's condition and case, the admit orders are written by me. 01:31 ED course: CT shows more of a shift, with new subfalcine blood. Pt still denies injury. rn . 03/13 00:16 Order name: Basic Metabolic Panel; Complete Time: : rn 03/13 00:16 Order name: CBC with Diff; Complete Time: : rn 03/13 00:16 Order name: Magnesium; Complete Time: : rn 03/13 00:16 Order name: Protime (+inr); Complete Time: : rn 03/13 00:16 Order name: Ptt, Activated; Complete Time: : rn 03/13 00:16 Order name: Troponin (emerg Dept Use Only); Complete Time: :00 rn 03/13 00:16 Order name: CT Head Brain wo Cont rn 03/13 01:01 Order name: CT Chest For PE Angio rn 03/13 02:25 Order name: Urine Dipstick--Ancillary (enter results); Complete Time: 02:35 ds4 03/13 03:49 Order name: SARS-COV-2 RT PCR EDMS 03/13 00:16 Order name: EKG; Complete Time: 00:17 rn 03/13 00:16 Order name: Cardiac monitoring; Complete Time: 00:24 rn 03/13 00:16 Order name: EKG - Nurse/Tech; Complete Time: 00:24 rn 03/13 00:16 Order name: IV Saline Lock; Complete Time: 00: rn 03/13 00:16 Order name: Labs collected and sent; Complete Time: 00: rn 03/13 00:16 Order name: NPO; Complete Time: 00: rn 03/13 00:16 Order name: O2 Per Protocol; Complete Time: : rn 03/13 00:16 Order name: O2 Sat Monitoring; Complete Time: rn 03/13 00:16 Order name: Urine Dipstick-Ancillary (obtain specimen); Complete Time: 02:15 rn EC:17 Rate is 69 beats/min. Rhythm is regular. QRS [place] is Normal. VA interval is normal. QRS rn interval is normal. QT interval is normal. No Q waves. T waves are Normal. No ST changes noted. Clinical impression: NSR w/ Non-specific ST/T Changes. Interpreted by me. Reviewed by me. Administered Medications: 01:11 Drug: Potassium Chloride 10 mEq Route: IV; Rate: calculated rate; Site: right forearm; jb4 02:55 Follow up: Response: No adverse reaction; IV Status: Completed infusion; IV Intake: [id number] 01:11 Drug: Magnesium Sulfate 1 grams Route: IVPB; Infused Over: 1 hrs; Site: right forearm; jb4 03:03 Follow up: Response: No adverse reaction; IV Status: Completed infusion; IV Intake: jb4 100ml 02:06 Not Given (Physician Discretion): hydrALAZINE 5 mg IV at calculated rate once jb4 Disposition: 03/13/20 01:[address] [facility]. Diagnosis are Nontraumatic subdural hemorrhage, Syncope and collapse. - Reason for transfer: Higher level of care. - Accepting physician is . - Condition is Stable. - Problem is new. - Symptoms have worsened. Signatures: Dispatcher [employer] EDMT Shama Bronson RN Bal Johansen MD MD rn Bryson, James, RN RN jb4 Corrections: (The following items were deleted from the chart) 01:32 01:28 ED course: Pt feels better, neg trop, repeat ecg normal, neg d-dimer, stable rn vitals, cxr without acute findings. Pt reports similar to previous panic attacks, and improved with ativan. Will dc home after electrolyte replacement. . rn 02:49 02:17 CORONAVIRUS+MR.LAB.BRZ ordered. EDMS EDMS 03:52 01:33 03/13/2020 01:[address] [facility]. jb4 Diagnosis is Nontraumatic subdural hemorrhage; Syncope and collapse. Reason for transfer: Higher level of care. Accepting physician is . Condition is Stable. Problem is new. Symptoms have worsened. rn
--- NOTE | 2020-03-13 01:35 | ER ---
Nurse's Notes [facility] Name: Blanca Estrada Age: 59 yrs Sex: Female : 1960 Arrival Date: 03/13/2020 Time: 00:16 Bed 2 Private MD: Diagnosis: Nontraumatic subdural hemorrhage;Syncope and collapse Presentation: 03/13 00:08 Chief complaint: EMS states: they were toned out for report of pt with sudden sense of bb "impending doom" and a syncopal episode with shaking from which the pt woke up immediately, pt has recent hx of subdural bleed. Coronavirus screen: At this time, the client does not indicate any symptoms associated with coronavirus-19. Ebola Screen: No symptoms or risks identified at this time. Initial Sepsis Screen: Does the patient meet any 2 criteria? No. Patient's initial sepsis screen is negative. Does the patient have a suspected source of infection? No. Patient's initial sepsis screen is negative. Risk Assessment: Do you want to hurt yourself or someone else? Patient reports no desire to harm self or others. Onset of symptoms was March 13, 2020. 00:08 Method Of Arrival: EMS: [facility] bb 00:08 Acuity: WILMAR 3 bb 00:27 Care prior to arrival: Glucose check: 225. bb Historical: - Allergies: 00:26 Morphine; bb - Home Meds: 00:26 aspirin 81 mg Oral chew 1 tab once daily [Active]; atorvastatin 80 mg Oral tab 1 tab bb once daily [Active]; Fluoxetine Oral [Active]; pantoprazole 40 mg oral TbEC 1 tab once daily [Active]; lisinopril 40 mg Oral tab 1 tab once daily [Active]; tramadol Oral [Active]; carvedilol oral oral [Active]; lispro insulin 100 unit/ml [Active]; glargine insuline 100 units/ml SQ [Active]; - PMHx: 00:26 CAD; Clots in the past; CVA; Diabetes - IDDM; Hyperlipidemia; Hypertension; Myocardial bb infarction; - PSHx: 00:26 Back x 2; pacemaker; kidney surgery; bb - Immunization history:: Adult Immunizations up to date. - Social history:: Smoking status: Patient reports the use of cigarette tobacco products, smokes two packs cigarettes per day. Patient/guardian denies using alcohol, street drugs. - Family history:: not pertinent. - Hospitalizations: : Patient was recently seen at. Screenin:12 Abuse screen: Denies threats or abuse. Nutritional screening: No deficits noted. jb4 Tuberculosis screening: No symptoms or risk factors identified. Fall Risk IV access (20 points). Mental Status- Oriented to own ability (0 pts). Total Hutchinson Fall Scale indicates No Risk (0-24 pts). Assessment: 00:12 General: Appears in no apparent distress. comfortable, Behavior is calm, cooperative, jb4 appropriate for age. Pain: Denies pain. Neuro: Level of Consciousness is awake, alert, obeys commands, Oriented to person, place, time, situation. Cardiovascular: Patient's skin is warm and dry. Rhythm is sinus rhythm. Respiratory: Airway is patent Respiratory effort is even, unlabored, Respiratory pattern is regular, symmetrical. GI: No signs and/or symptoms were reported involving the gastrointestinal system. : No signs and/or symptoms were reported regarding the genitourinary system. EENT: No signs and/or symptoms were reported regarding the EENT system. Derm: Skin is intact, Skin is pink, warm \\T\\ dry. normal. Musculoskeletal: Circulation, motion, and sensation intact. Range of motion: intact in all extremities. 01:15 Reassessment: Patient appears in no apparent distress at this time. Patient and/or jb4 family updated on plan of care and expected duration. Pain level reassessed. Patient is alert, oriented x 3, equal unlabored respirations, skin warm/dry/pink. 02:06 Reassessment: Patient appears in no apparent distress at this time. Patient and/or jb4 family updated on plan of care and expected duration. Pain level reassessed. Patient is alert, oriented x 3, equal unlabored respirations, skin warm/dry/pink. 03:09 Reassessment: Patient appears in no apparent distress at this time. Patient and/or jb4 family updated on plan of care and expected duration. Pain level reassessed. Patient is alert, oriented x 3, equal unlabored respirations, skin warm/dry/pink. 03:50 Reassessment: Patient appears in no apparent distress at this time. Patient and/or jb4 family updated on plan of care and expected duration. Pain level reassessed. Patient is alert, oriented x 3, equal unlabored respirations, skin warm/dry/pink. Pt transferred out of ED via EMS. IV site is clean dry and intact, no s/s of infiltration or phlebitis. Vital Signs: 00:08 BP 179 / 69; Pulse 65; Resp 16 S; Temp 98.6(O); Pulse Ox 97% on R/A; Weight 77.11 kg bb (R); Height 5 ft. 8 in. (172.72 cm) (R); Pain 0/10; 01:00 BP 154 / 83; Pulse 67; Resp 19; Pulse Ox 95% on R/A; jb4 02:00 BP 167 / 69; Pulse 69; Resp 16; Pulse Ox 94% on R/A; jb4 03:00 BP 162 / 85; Pulse 60; Resp 17; Pulse Ox 94% on R/A; jb4 03:50 BP 163 / 68; Pulse 63; Resp 17; Pulse Ox 95% on R/A; jb4 00:08 Body Mass Index 25.85 (77.11 kg, 172.72 cm) bb ED Course: 00:12 Patient has correct armband on for positive identification. Placed in gown. Bed in low jb4 position. Call light in reach. Side rails up X 1. blocker automatic on. Pulse ox on. NIBP on. 00:12 EKG completed in triage. Results shown to MD. bb 00:12 EKG done, by ED staff, reviewed by Bal Ohara MD. jb4 00:16 Patient arrived in ED. rn 00:16 Bal Ohara MD is Attending Physician. rn 00:20 Initial lab(s) drawn, by ED staff, sent to lab. Inserted saline lock: 20 gauge in right jb4 forearm, using aseptic technique. Blood collected. inserted by EMMIE Martinez. 00:23 Triage completed. bb 00:23 Gurpreet Mathis, EMMIE is Primary Nurse. jb4 00:26 Arm band placed on Patient placed in an exam room, on a stretcher, on foley artist, bb on pulse oximetry. 00:54 CT Head Brain wo Cont In Process Unspecified. EDMS 00:55 Notified ED physician of a critical lab result(s). Potassium 2.6. jb4 01:[address] [facility] with Emily Link. Stated she would work on the case tt3 and call back. 01:54 CT Chest For PE Angio In Process Unspecified. EDMS 01:56 Emily Link called back with their neuro specialist to speak with Dr. Ohara regarding tt3 the pt transfer. 02:11 Emily Link called back with admin approval. Dr. Ba accepted the pt at 0159. tt3 The pt is going to [place] [id number] bed 7519. Nurse to call report to . Facesheet and MOT faxed to per Emily's request. Will call with Covid results and fax them to Emily once they return. 02:36 Spoke with Zoe with [facility]. They will transfer the pt. ETA is tt3 approximately an hour. 03:47 [facility] here to transfer pt. tt3 03:50 No provider procedures requiring assistance completed. Patient transferred, IV remains jb4 in place. Administered Medications: 01:11 Drug: Potassium Chloride 10 mEq Route: IV; Rate: calculated rate; Site: right forearm; jb4 02:55 Follow up: Response: No adverse reaction; IV Status: Completed infusion; IV Intake: [id number] 01:11 Drug: Magnesium Sulfate 1 grams Route: IVPB; Infused Over: 1 hrs; Site: right forearm; jb4 03:03 Follow up: Response: No adverse reaction; IV Status: Completed infusion; IV Intake: jb4 100ml 02:06 Not Given (Physician Discretion): hydrALAZINE 5 mg IV at calculated rate once jb4 Intake: 02:55 IV: 50ml; Total: 50ml. jb4 03:03 IV: 100ml; Total: 150ml. jb4 Outcome: 01:33 ER care complete, transfer ordered by . rn 03:50 Transferred by ground EMS EMS. [place] [facility] jb4 completed. X-rays sent w/ patient. 03:50 Condition: stable 03:50 Discharge instructions given to patient, family, Instructed on the need for transfer, Demonstrated understanding of instructions. 03:52 Patient left the ED. jb4 Signatures: Dispatcher [employer] EDMS Shama Bronson RN RN bb Bal Ohara MD MD rn Bryson, James, RN RN jb4 Jeremy Fall tt3 Corrections: (The following items were deleted from the chart) 03:04 03:03 Response: No adverse reaction; IV Status: Completed infusion; IV Intake: 50ml caio kearney
[2020-03-13] MEDS ORDERED: HYDRALAZINE HCL 20 MG/ML VIAL ONE (02:09)
[2020-03-13 02:35] LABS: Urine Blood TRACE (NEG); Urine Glucose 3+ (NEG); Urine Protein 2+ (NEG); Urine Specific Gravity 1.015 (1.005-1.030); Urine pH 6.5 (5.0-7.0)
[2020-03-13 04:04] VITALS: BP 163/68; O2SAT 95
--- NOTE | 2020-03-13 11:23 | RAD REPORT ---
EXAM DESCRIPTION: CT - Head Brain Wo Cont - 03/13/2020 7:15 am CLINICAL HISTORY: SYNCOPE COMPARISON: 02/27/2020 TECHNIQUE: Axial unenhanced CT imaging of the brain. Reformatted coronal and sagittal images obtaine d. This examination was performed according to our departmental dose optimization program, which include s automated exposure control, adjustment of the mA and/or kV according to patient size and/or use of iterative reconstruction technique. FINDINGS: There is redemonstration of an extra-axial heterogeneous thyroid hyperdense fluid collecti on within the subdural space overlying the right frontal, temporal, and parietal lobe. This has sligh tly increased in size although density has decreased. There is now thin hyperdense fluid along the ri ght tentorium. There is a 9 mm leftward midline shift which has increased. There is no intraparenchym al hemorrhage. No evidence of edema or acute major territorial infarction. A trace amount of right pa rietal parafalcine blood is now present. Normal cerebellum and vermis. Fourth ventricle is midline. Intraorbital contents appear normal. Sella contents appear normal. Clear paranasal sinuses. Mastoid air cells are clear bilaterally. Skull base and calvarium are intact. Unremarkable scalp soft tissues. IMPRESSION: 1. Right frontal, temporal, parietal, and tentorial subdural hemorrhage with minimal new right parafalcine subdural blood. This has increased in size. The density has decreased indicative o f subacute hemorrhage. The leftward midline shift has slightly increased in 9 mm. Electronically signed by: Jennifer Poole DO 03/13/2020 1:05 AM CDT Due to temporary technical issues with the PACS/Fluency reporting system, reports are being signed by the in house radiologist without review as a courtesy to ensure prompt reporting. The interpreting r adiologist is fully responsible for the content of the report.
--- NOTE | 2020-03-13 11:38 | RAD REPORT ---
EXAM DESCRIPTION: CT - Chest For Pe Angio - 03/13/2020 7:15 am CLINICAL HISTORY: Syncope COMPARISON: None Available. TECHNIQUE: CTA of the chest obtained following the uncomplicated intravenous administration of . 3-D /MIP reformatted images of the chest available for evaluation. FINDINGS: Chest: Pulmonary arteries: Contrast bolus is adequate.No filling defects identified in the pulmonary arterie s to suggest pulmonary embolus. Respiratory motion artifact. Thyroid: No abnormalities of the visualized thyroid. Great Vessels: Great vessels have normal anatomic configuration. Thoracic Aorta: Atherosclerotic calcification of a normal caliber thoracic aorta. Heart: Coronary artery atherosclerosis. Cardiomegaly. Left-sided dual-team leader surgery. Lymph Nodes: No enlarged mediastinal lymph nodes identified. Esophagus: No abnormalities of the esophagus identified. Other: No additional findings. Lungs: Few scattered peripheral groundglass opacity. Centrilobular emphysematous change. Pleura: No pleural effusion or pneumothorax. Trachea/Airways: No abnormalities of the visualized trachea or airways. Bones: Dextroconvex scoliosis of the thoracic spine Upper Abdomen: Limited images of the upper abdomen demonstrate no definite abnormalities of visualize d portions of the liver, pancreas, spleen, or adrenal glands. IMPRESSION: 1. No pulmonary embolus. 2. Centrilobular emphysematous change. 3. Coronary artery atherosclerosis. 4. Few peripheral groundglass opacities. Respiratory motion artifact. Imaging features can be seen wi th viral pneumonia, though are nonspecific and can occur with a variety of infectious and noninfectio us processes. PneInd Reference: https://pubs.rsna.org/doi/full/10.1148/ryct.2129952600 This exam was performed according to our departmental dose-optimization program, which includes autom ated exposure control, adjustment of the mA and/or kV according to patient size and/or use of iterati ve reconstruction technique. Electronically signed by: Dyllan Ferreira 03/13/2020 2:04 AM CDT Due to temporary technical issues with the PACS/Fluency reporting system, reports are being signed by the in house radiologist without review as a courtesy to ensure prompt reporting. The interpreting r adiologist is fully responsible for the content of the report.
--- NOTE | 2020-03-13 17:51 | EKG ---
Test Date: 2020-03-13 Test Time: 00:12:24 Gasket Notcher: PARUL MEASUREMENT RESULTS: Intervals: Rate: 69 TX: 140 QRSD: 88 QT: 428 QTc: 458 [place]: P: 40 TX: 140 QRS: 46 T: 69 INTERPRETIVE STATEMENTS: Normal sinus rhythm Left ventricular hypertrophy with repolarization abnormality Abnormal ECG Compared to ECG 02/27/2020 19:25:15 Left ventricular hypertrophy now present Early repolarization now present ST (T wave) deviation no longer present Electronically Signed On 03-13-20 17:50:04 CDT by Kamar Cole
== END 2020-03-13 03:52 | disposition short-term general hospital (02) ==
LOC: ER 00:11
DX: I62.00 Nontraumatic subdural hemorrhage, unspecified (principal); I10 Essential (primary) hypertension; E78.5 Hyperlipidemia, unspecified; E11.9 Type 2 diabetes mellitus without complications; F17.210 Nicotine dependence, cigarettes, uncomplicated; Z79.4 Long term (current) use of insulin; Z79.82 Long term (current) use of aspirin; Z86.73 Personal history of transient ischemic attack (TIA), and cerebral infarction without residual deficits; Z88.5 Allergy status to narcotic agent
CPT/HCPCS: 36415; 70450; 71275; 80048; 81003; 83735; 84484; 85025; 85610; 85730; 93005; 96365; 96366; 96368; 99285; J0360; J3475; J3480; Q9967; U0003

== ENCOUNTER 2022-02-05 05:30 | Observation (INO) | payer OTHER, SELFPAY ==
--- OUTSIDE RECORDS SUMMARY | 2022-02-05 05:38 | XMS REPORT | Continuity of Care Document ---
:1960 Author Organization [facility] t Address [address] [place] [address] Care Team Providers Name Role Phone Juan Nunn Primary Care Physician [phone] JESUS ALBERTO SOLIS I. Attending Clinician Unavailable SITA SAMPSON Attending Clinician Unavailable ROSANNA RODRIGUEZ Attending Clinician Unavailable GILES MCDONALD Attending Clinician Unavailable JESUS ALBERTO SOLIS I. Admitting Clinician Unavailable SITA SAMPSON Admitting Clinician Unavailable SWEETIE BURCIAGA Admitting Clinician Unavailable CAMMY DAVIS Admitting Clinician Unavailable Payers Payer Name Policy Type Policy Number Effective Date Expiration Date S balbina [employer] REVIEW [id number] 2020 00:00:00 Problems Condition Condition Condition Status Onset Resolution Last Treating Co mments Source Name Details Category Date Date Treatment Clinician Date SDH SDH Disease Active 2019-[address] [facility] (subdural (subdural 0-30 [facility] hematoma) hematoma) 00:00: Medi erwin 00 Center Cerebral Cerebral Disease Active 2019[facility] Midline Midline Disease Active 2019-[address] [facility] shift of shift of 0-16 [facility] brain brain 00:00: Medical 00 Center Subdural Subdural Disease Active 2019[facility] 0-[facility] 00:[facility]: Medical 00 Center Hypertensi Hypertensi Disease Active 2018-[address] on on 06-25 Lu 00:00: Medical 00 Center Hyperlipid Hyperlipid Disease Active 2018-[address] emia emia 06-25 [facility] 00 Center [place] Disease Active 2018-[address] [facility] (ventricul (ventricul 06-25 Jodie kes ar ar 00:00: Medical tachycardi tachycardi 00 Ce nter a) a) Heart Heart Disease Active 2018-[address] [facility] [address] block block 06-25 [facility] Leukocytos Leukocytos Disease Active 2018-[address] is is 06-25 [facility] Uncontroll Uncontroll Disease Active 2018-[address] ed ed 06-25 [facility] diabetes diabetes 00:00: Medica l mellitus mellitus 00 Center with with hyperglyce hyperglyce braxton braxton CAD CAD Disease Active 2018-[address] [facility] [address] (coronary (coronary 2 [facility] s artery artery 00:00: Medical disease) disease) 00 Center Allergies, Adverse Reactions, Alerts Allergy Allergy Status Severity Reaction(s) Onset Inactive Treating Comm ents Source Name Type Date Date Clinician Mesna - Propensi Active Intraven ty to 6-24 ous adverse 00:00: reaction 00 to drug Morphine Propensi Active Other (See 2019-[address] ty to Comments) 0-15 attack as Luke s adverse 00:00: pt Medical reaction 00 verbnaliz [facility] r s ed MORPHINE Allergy Active Other 2019-[address] [facility] 0-15 [facility] Center NO KNOWN Allergy Active [facility] Family History Family Member Diagnosis Comments Start Date Stop Date Source Natural mother Coronary artery [facility] Social History Social Habit Start Date Stop Date Quantity Comments Source History SDOH [facility] Alcohol Comment Medical C enter History SDOH [facility] Alcohol Std Drinks Medica l Center History SDOH [facility] Alcohol Binge Medical Raman [facility] Alcohol intake 2020-03-16 2020-03-[address] [facility] 00:[facility]:00 00:00:00 non-drinker of Medical Ce nter alcohol (finding) History SDOH 2019-04-24 2019-04-[address] [facility] Alcohol Frequency 00:00:00 00:00:00 Medical Center Cigarettes smoked 2019-04-23 2019-04-[address] [facility] current (pack per 00:00:00 00:00:00 Medical Center day) - Reported Tobacco use and 2019-04-23 2019-04-[address] [facility] exposure 00:00:00 00:00:00 [facility] Center Sex Assigned At [address] [facility] Jodie alfaro 00:00:00 00:00:00 Medical Center Smoking Status Start Date Stop Date Source Current every day smoker 2019-04-23 00:00:00 [facility] Medications Ordered Filled Start Stop Current Ordering Indication Dosage Frequency Signature Comments Components Source Medication Medication Date Date Medication? Clinician (SIG) Name Name TAKE 1 2021-0 No [id number] TABLET 7-25 TWICE DAILY 00:00: WITH FOOD. 00 TAKE 2 2021-0 No 20 TABLETS X 1 7- TODAY. THEN 00:00: 1 TABLET 00 DAILY X 5 DAYS TAKE 2 2021-0 No 20 TABLETS X 1 7- TODAY. THEN 00:00: 1 TABLET 00 DAILY X 5 DAYS TAKE 1 2021-0 No [id number] TABLET 7-25 TWICE DAILY 00:00: WITH FOOD. 00 pantoprazol 2021-0 No 1mg e 40 mg - tablet,edvin 00:00: yed release 00 Dose 2021-0 No Unknown - 00:00: 00 lisinopril 2-0 No 1mg 40 mg 7-07 tablet 00:00: 00 atorvastati 2-0 No 1mg n 80 mg 7-07 tablet 00:00: 00 TAKE 1 2021-0 No [id number] TABLET -07 TWICE DAILY 00:00: WITH FOOD. 00 buspirone 5 2021-0 No 1mg mg tablet 11-12 00:00: 00 Lexapro 10 2021-0 No 1mg mg tablet 11-12 00:00: 00 TAKE 1 2021-0 No [id number] TABLET - TWICE DAILY 00:00: WITH FOOD. 00 Dose 2021-0 No Unknown 11-12 00:00: 00 TAKE 2 2-0 No 20 TABLETS X 1 - TODAY. THEN 00:00: 1 TABLET 00 DAILY X 5 DAYS Dose 2-0 No Unknown 6- 00:00: 00 Dose 2-0 No Unknown 6-24 00:00: 00 Dose 2-0 No Unknown 6-24 00:00: 00 buspirone 5 2021-0 No 1mg mg tablet 10-12 00:00: 00 Lexapro 10 2022-0 No 1mg mg tablet 5-31 00:00: 00 Lexapro 10 2-0 No 1mg mg tablet 5-18 00:00: 00 lisinopril 2022-0 No 1mg 40 mg 5-09 tablet 00:00: 00 Levemir 2022-0 No 12(3 FlexTouch 4-07 mL) U-100 00:00: Insulin 100 00 unit/mL (3 mL) subcutaneou s pen lisinopril 2-0 No 1mg 40 mg 4-07 tablet 00:00: 00 pantoprazol 2022-0 No 1mg e 40 mg 4-07 tablet,edvin 00:00: yed release 00 carvedilol 2-0 No 1mg 25 mg 4-07 tablet 00:00: 00 atorvastati 2022-0 No 1mg n 80 mg 4-07 tablet 00:00: 00 hydralazine 2022-0 No 1mg 100 mg 4-07 tablet 00:00: 00 pantoprazol 2022-0 No 1mg e 40 mg 3-08 tablet,edvin 00:00: yed release 00 Dose 2022-0 No Unknown 3-08 00:00: 00 Dose 2022-0 No Unknown 3-08 00:00: 00 carvedilol 2-0 No 1mg 25 mg 1-31 tablet 00:00: 00 pantoprazol 2021-1 No 1mg e 40 mg 2-23 tablet,edvin 00:00: yed release 00 fluoxetine 1-1 No 1mg 60 mg 2-23 tablet 00:00: 00 atorvastati 2021-1 No 1mg n 80 mg 2-23 tablet 00:00: 00 lisinopril 2021-1 No 1mg 40 mg 2-10 tablet 00:00: 00 hydralazine 2021-1 No 1mg 100 mg 1-22 tablet 00:00: 00 pantoprazol 2021-0 No 1mg e 40 mg 9-25 tablet,edvin 00:00: yed release 00 carvedilol 2021-0 No 1mg 25 mg 9-25 tablet 00:00: 00 atorvastati 2021-0 No 1mg n 80 mg 9-25 tablet 00:00: 00 Augmentin 2021-0 No 1mg 875 mg-125 8-16 mg tablet 00:00: 00 lisinopril 2021-0 No 1mg 40 mg 5-25 tablet 00:00: 00 pantoprazol 1-0 No 1mg e 40 mg 5-25 tablet,edvin 00:00: yed release 00 lisinopril 1-0 No 1mg 40 mg 5-25 tablet 00:00: 00 carvedilol 2021-0 No 1mg 25 mg 5-25 tablet 00:00: 00 levetiracet 2021-0 No 1mg am 1,000 mg 5-25 tablet 00:00: 00 levetiracet 2021-0 No 1mg am 1,000 mg 5-25 tablet 00:00: 00 carvedilol 2021-0 No 1mg 25 mg 5-25 tablet 00:00: 00 atorvastati 1-0 No 1mg n 80 mg 5-25 tablet 00:00: 00 hydralazine 2021-0 No 1mg 100 mg 5-25 tablet 00:00: 00 hydralazine 2021-0 No 1mg 100 mg 5-25 tablet 00:00: 00 gabapentin 1-0 No 1mg 300 mg 5-25 capsule 00:00: 00 pantoprazol 1-0 No 1mg e 40 mg 5-13 tablet,edvin 00:00: yed release 00 atorvastati 2020-0 No 1mg n 80 mg 3-11 tablet 00:00: 00 pantoprazol 1-0 No 1mg e 40 mg 1-28 tablet,edvin 00:00: yed release 00 atorvastati 2020-0 No 1mg n 80 mg 1-21 tablet 00:00: 00 fluoxetine 2019-1 No 1mg 60 mg 2-10 tablet 00:00: 00 insulin 2019-05 Yes QD Inject [facility] detemir 1-04 [facility]aneo [facility] U-100 14:35: usly Medical (LEVEMIR) 29 nightly Center 100 unit/mL bedtime . injection insulin 2019-[address] [facility] aspart 1-04 subcutaneo [facility] U-100 14:35: usly 3 Medical (NovoLOG) 29 (three) Center 100 unit/mL times (3 mL) InPn daily before meals Afternoon around noon . atorvastati 2019-05 Yes 80mg QD Take [address] n (LIPITOR) 1-04 by mouth Luke s 80 MG 14:35: nightly. Medical tablet 29 Center FLUoxetine 2019-05 Yes 60mg QD Take [address] (PROzac) 40 -04 by mouth Luke s MG capsule 14:35: daily 60 Med ical 29 mg (not Center 40mg)! . pantoprazol 2019-05 Yes 40mg QD Take [address] [facility] e 1-04 by mouth [facility] (PROTONIX) 14:35: daily. Medic al 40 MG 29 Center tablet gabapentin 2019-05- No 300mg Q.[id number] Take [address] [facility] [facility] (NEURONTIN) 05-18 [id number] capsule [facility] 300 MG 00:00: 23:59 3D (300 mg Medical capsule 00 :00 total) by Center mouth 3 (three) times daily. hydrALAZINE 2019-05 No 100mg Take [address] (APRESOLINE 05-18 tablet [facility] ) 100 MG 00:00: 23:59 (100 mg Medic al tablet 00 :00 total) by Center mouth every 8 (eight) hours. lisinopriL 2019-05- No 40mg QD Take [address] [facility] (PRINIVIL,Z 0-19 10-19 tablet (40 L ukes ESTRIL) 40 00:00: 23:59 mg total) M edical MG tablet 00 :00 by mouth Center daily. carvediloL 2019-05- No 25mg Q.5D Take [address] (COREG) 25 0-18 10-18 tablet (25 Jodie kes MG tablet 00:00: 23:59 mg total) Me dical 00 :00 by mouth 2 Center (two) times daily. mupirocin 2 2019-0 No 1% % topical 9-21 ointment 00:00: 00 sulfamethox 2019-0 No 1mg azole 800 9-21 mg-trimetho 00:00: prim 160 mg 00 tablet Levemir 2019-0 No 10(3 FlexTouch 9-16 mL) U-100 00:00: Insulin 100 00 unit/mL (3 mL) subcutaneou s pen diclofenac 2019-0 No % 1 % topical 9-16 gel 00:00: 00 lisinopril 2019-0 No 1mg 10 mg 9-16 tablet 00:00: 00 metoprolol 2020-0 No 1mg succinate 9-16 ER 25 mg 00:00: tablet,exte 00 nded release 24 hr pantoprazol 2020-0 No 1mg e 40 mg 9-16 tablet,edvin 00:00: yed release 00 clopidogrel 2020-0 No 1mg 75 mg 9-16 tablet 00:00: 00 fluoxetine 2020-0 No 1mg 60 mg 9-16 tablet 00:00: 00 fluoxetine 2020-0 No 1mg 60 mg 9-16 tablet 00:00: 00 atorvastati 2020-0 No 1mg n 80 mg 9-16 tablet 00:00: 00 diclofenac 2020-0 No % 1 % topical 9-12 gel 00:00: 00 clopidogrel 2020-0 No 1mg 75 mg 9-12 tablet 00:00: 00 fluoxetine 2020-0 No 1mg 60 mg 9-12 tablet 00:00: 00 lisinopril 2020-0 No 1mg 2.5 mg 9-12 tablet 00:00: 00 metoprolol 2020-0 No 1mg succinate 9-12 ER 25 mg 00:00: tablet,exte 00 nded release 24 hr pantoprazol 2020-0 No 1mg e 40 mg 9-12 tablet,edvin 00:00: yed release 00 atorvastati 2020-0 No 1mg n 80 mg 9-12 tablet 00:00: 00 Novolog 2020-0 No (3 mL) Flexpen 7-08 U-100 00:00: Insulin 00 aspart 100 unit/mL (3 mL) subcutaneou s Levemir 2020-0 No 10(3 FlexTouch 7-08 mL) U-100 00:00: Insulin 100 00 unit/mL (3 mL) subcutaneou s pen Novolog 2020-0 No (3 mL) Flexpen 7-08 U-100 00:00: Insulin 00 aspart 100 unit/mL (3 mL) subcutaneou s diclofenac 2020-0 No % 1 % topical 7-08 gel 00:00: 00 fluoxetine 2020-0 No 1mg 60 mg 7-08 tablet 00:00: 00 lisinopril 2020-0 No 1mg 2.5 mg 7-08 tablet 00:00: 00 metoprolol 2020-0 No 1mg succinate 7-08 ER 25 mg 00:00: tablet,exte 00 nded release 24 hr pantoprazol 2020-0 No 1mg e 40 mg 7-08 tablet,edvin 00:00: yed release 00 clopidogrel 2020-0 No 1mg 75 mg 7-08 tablet 00:00: 00 atorvastati 2020-0 No 1mg n 80 mg 7-08 tablet 00:00: 00 Novolog 2020-0 No (3 mL) Flexpen 3-25 U-100 00:00: Insulin 00 aspart 100 unit/mL (3 mL) subcutaneou s diclofenac 2020-0 No % 1 % topical 3-25 gel 00:00: 00 Prozac 40 2020-0 No 1mg mg capsule 3-25 00:00: 00 lisinopril 2020-0 No 1mg 2.5 mg 1-15 tablet 00:00: 00 metoprolol 2020-0 No 1mg succinate 1-15 ER 25 mg 00:00: tablet,exte 00 nded release 24 hr pantoprazol 2020-0 No 1mg e 40 mg 1-15 tablet,edvin 00:00: yed release 00 clopidogrel 2020-0 No 1mg 75 mg 1-15 tablet 00:00: 00 atorvastati 2020-0 No 1mg n 80 mg 1-15 tablet 00:00: 00 clopidogrel 2020-0 No 1mg 75 mg 1-15 tablet 00:00: 00 pantoprazol 2020-0 No 1mg e 40 mg 1-15 tablet,edvin 00:00: yed release 00 atorvastati 2020-0 No 1mg n 80 mg 1-15 tablet 00:00: 00 lisinopril 2020-0 No 1mg 2.5 mg 1-15 tablet 00:00: 00 metoprolol 2020-0 No 1mg succinate 1-15 ER 25 mg 00:00: tablet,exte 00 nded release 24 hr Levemir 2020-0 No 10(3 FlexTouch 1-15 mL) U-100 00:00: Insulin 100 00 unit/mL (3 mL) subcutaneou s pen insulin 2018- Yes 10U QD Inject 10 [facility] glargine 2-13 Units [facility] (LANTUS) 00:00: subcutaneo Med ical 100 unit/mL 00 ly Center (3 mL) InPn nightly. insulin 2018-[address] [facility] lispro 2-13 meals: [facility] (HUMALOG) 00:00: inject 1 Medi erwin 100 unit/mL 00 unit SQ if Ce nter InPn sugar >200; 2 units SQ if BG >250; 4 units SQ if BG >300; 6 units if > 350; 8 units if sugar > 400. glucometer 2018-05 Yes Use pre [facility] (FREESTYLE) 2-13 meals and [facility] es Misc 00:00: pre Medical 00 bedtime Center with strips and lancets. blood sugar 2018-05 Yes 120{str Q.25D [address] [facility] diagnostic 2-13 ip} by [facility] (GLUCOSE 00:00: Miscellane Med ical BLOOD) Strp [address] 4 (four) times daily. lancets 2018-05 Yes Use for [facility] (LANCETS, 2-13 glucose [facility] SUPER THIN) 00:00: check 4 Med ical Misc 00 times Center daily. Immunizations Ordered Immunization Filled Immunization Date Status Commen ts Source Name Name Denzel COVID-19 2020-11-05 Completed Vaccine 00:00:00 Pneumococcal 2020-02-[address] [facility] Conjugate (Prevnar) 00:00:00 Medic al Center 13-Valent Influenza Four-QIV 2020-02-[address] [facility] PF 3YR+ ([id number]) 00:00:00 Medical Center Vital Signs Vital Name Observation Time Observation Value Comments Source HEIGHT 2020-03-13 05:44:00 172.7 cm WEIGHT 2020-03-13 05:44:00 77.7 kg HEIGHT 2020-02-28 06:00:00 172.7 cm WEIGHT 2020-02-28 06:00:00 77.2 kg HEIGHT 2020-03-13 05:44:00 172.7 cm WEIGHT 2020-03-13 05:44:00 77.7 kg HEIGHT 2020-02-28 06:00:00 172.7 cm WEIGHT 2020-02-28 06:00:00 77.2 kg BP Systolic 2021-12-06 13:42:00 150 mm[Hg] BP Diastolic 2021-12-06 13:42:00 62 mm[Hg] Weight Measured 2021-12-06 13:42:00 171.00 pounds Height Measured 2021-12-06 13:42:00 68.00 inches Body Temperature 2021-12-06 13:42:00 97.20 degrees Heart Rate 2021-12-06 13:42:00 67.00 /min Respiratory Rate 2021-12-06 13:42:00 BP Systolic 2021-08-19 09:27:00 160 mm[Hg] BP Diastolic 2021-08-19 09:27:00 75 mm[Hg] Weight Measured 2021-08-19 09:27:00 172.20 pounds Height Measured 2021-08-19 09:27:00 68.00 inches Body Temperature 2021-08-19 09:27:00 97.90 degrees Heart Rate 2021-08-19 09:27:00 74.00 /min Respiratory Rate 2021-08-19 09:27:00 16.00 /min BP Systolic 2021-04-23 14:56:00 BP Diastolic 2021-04-23 14:56:00 Weight Measured 2021-04-23 14:56:00 165.00 pounds Height Measured 2021-04-23 14:56:00 Body Temperature 2021-04-23 14:56:00 Heart Rate 2021-04-23 14:56:00 Respiratory Rate 2021-04-23 14:56:00 BP Systolic 2020-10-06 16:45:00 128 mm[Hg] BP Diastolic 2020-10-06 16:45:00 71 mm[Hg] Weight Measured 2020-10-06 16:45:00 184.80 pounds Height Measured 2020-10-06 16:45:00 68.00 inches Body Temperature 2020-10-06 16:45:00 97.90 degrees Heart Rate 2020-10-06 16:45:00 84.00 /min Respiratory Rate 2020-10-06 16:45:00 16.00 /min BP Systolic 2020-06-11 09:45:00 135 mm[Hg] BP Diastolic 2020-06-11 09:45:00 84 mm[Hg] Weight Measured 2020-06-11 09:45:00 175.60 pounds Height Measured 2020-06-11 09:45:00 68.00 inches Body Temperature 2020-06-11 09:45:00 98.20 degrees Heart Rate 2020-06-11 09:45:00 73.00 /min Respiratory Rate 2020-06-11 09:45:00 17.00 /min BP Systolic 2020-01-29 10:17:00 173 mm[Hg] BP Diastolic 2020-01-29 10:17:00 80 mm[Hg] Weight Measured 2020-01-29 10:17:00 174.20 pounds Height Measured 2020-01-29 10:17:00 68.00 inches Body Temperature 2020-01-29 10:17:00 98.70 degrees Heart Rate 2020-01-29 10:17:00 75.00 /min Respiratory Rate 2020-01-29 10:17:00 17.00 /min BP Systolic 2019-11-20 15:15:00 143 mm[Hg] BP Diastolic 2019-11-20 15:15:00 77 mm[Hg] Weight Measured 2019-11-20 15:15:00 167.60 pounds Height Measured 2019-11-20 15:15:00 68.00 inches Body Temperature 2019-11-20 15:15:00 98.90 degrees Heart Rate 2019-11-20 15:15:00 80.00 /min Respiratory Rate 2019-11-20 15:15:00 BP Systolic 2019-08-07 09:24:00 147 mm[Hg] BP Diastolic 2019-08-07 09:24:00 64 mm[Hg] Weight Measured 2019-08-07 09:24:00 168.40 pounds Height Measured 2019-08-07 09:24:00 68.00 inches Body Temperature 2019-08-07 09:24:00 97.90 degrees Heart Rate 2019-08-07 09:24:00 66.00 /min Respiratory Rate 2019-08-07 09:24:00 16.00 /min BP Systolic 2019-07-24 09:34:00 148 mm[Hg] BP Diastolic 2019-07-24 09:34:00 79 mm[Hg] Weight Measured 2019-07-24 09:34:00 166.80 pounds Height Measured 2019-07-24 09:34:00 68.00 inches Body Temperature 2019-07-24 09:34:00 98.50 degrees Heart Rate 2019-07-24 09:34:00 90.00 /min Respiratory Rate 2019-07-24 09:34:00 16.00 /min BP Systolic 2019-05-29 09:30:00 140 mm[Hg] BP Diastolic 2019-05-29 09:30:00 79 mm[Hg] Weight Measured 2019-05-29 09:30:00 165.60 pounds Height Measured 2019-05-29 09:30:00 68.00 inches Body Temperature 2019-05-29 09:30:00 97.90 degrees Heart Rate 2019-05-29 09:30:00 87.00 /min Respiratory Rate 2019-05-29 09:30:00 16.00 /min Procedures This patient has no known procedures. Plan of Care Planned Activity Planned Date Details Comments Source Future Scheduled 2022-04-25 Lipid panel (procedure) [facility] Test 00:00:00 [code = 01996082] Medical Ce nter Future Scheduled 2022-01-13 INFLUENZA VACCINE (#1) [facility] 00:00:00 [code = INFLUENZA Medical Ce nter VACCINE (#1)] Future Scheduled 2021-05-[address] [facility] Test 00:00:00 (12+) [code = Medical Center DEPRESSION SCREENING (12+)] Future Scheduled 2021-02-[address] [facility] Test 00:00:00 0-64 YRS (2 - PPSV23 or [facility] PCV20) [code = PNEUMOCOCCAL VACCINE 0-64 YRS (2 - PPSV23 or PCV20)] Future Scheduled 2020-08-[address] [facility] Test 00:00:00 measurement (procedure) [facility] [code = 27387375] Future Scheduled 2012 SHINGLES VACCINES ([address] [facility] Test 00:00:00 2) [code = SHINGLES [facility] Center VACCINES (1 of 2)] Future Scheduled 1983 Screening for malignant [facility] Test 00:00:00 neoplasm of cervix Medical C enter (procedure) [code = 521674394] Future Scheduled 1981 DTAP/TDAP/TD VACCINES [facility] 00:00:00 (1 - Tdap) [code = Medical C enter DTAP/TDAP/TD VACCINES (1 - Tdap)] Future Scheduled 1980 HEPATITIS C SCREENING [facility] 00:00:00 [code = HEPATITIS C Medical Center SCREENING] Future Scheduled 1972 DIABETIC EYE EXAM [code [facility] 00:00:00 = DIABETIC EYE EXAM] Medical Center Future Scheduled [address] [facility] Test 00:00:00 examination Medical Center (regime/therapy) [code = 028128075] Future Scheduled 1972 Urine screening for [facility] Test 00:00:00 protein (procedure) Medical Center [code = 426001218] Future Scheduled 1960 COVID-19 VACCINE (#1) [facility] 00:00:00 [code = COVID-[address] VACCINE (#1)] Future Scheduled 1962 Screening for malignant [facility] Test 00:00:00 neoplasm of breast Medical C enter (procedure) [code = 087135593] Future Scheduled 1962 CT Colonography (combo) [facility] Test 00:00:00 [code = CT Colonography [facility] (combo)] Future Scheduled 1962 Screening for malignant [facility] 00:00:00 neoplasm of colon Medical Ce nter (procedure) [code = 187066670] Future Scheduled 1962 Screening for malignant [facility] Test 00:00:00 neoplasm of colon Medical Ce nter (procedure) [code = 365138219] Future Scheduled 1962 Screening for malignant [facility] 00:00:00 neoplasm of colon Medical Ce nter (procedure) [code = 710138161] Future Scheduled 1962 Screening for malignant [facility] 00:00:00 neoplasm of colon Medical Ce nter (procedure) [code = 054030327] Future Scheduled 1960 Sigmoidoscopy [code = [facility] 00:[facility]:00 Sigmoidoscopy] Medical Gertrudis miranda Goal Plan of Care Note [code = 72601-9] Goal Plan of Care Note [code = 26097-0] Goal Plan of Care Note [code = 43031-9] Goal Plan of Care Note [code = 54040-5] Goal Plan of Care Note [code = 38069-9] Goal Plan of Care Note [code = 11583-2] Goal Plan of Care Note [code = 59787-9] Goal Plan of Care Note [code = 60603-4] Goal Plan of Care Note [code = 80541-9] Goal Plan of Care Note [code = 65076-0] Goal Plan of Care Note [code = 74715-8] Goal Plan of Care Note [code = 70037-5] Goal Plan of Care Note [code = 03497-6] Goal Plan of Care Note [code = 11399-6] Goal Plan of Care Note [code = 93719-3] Goal Plan of Care Note [code = 77269-1] Goal Plan of Care Note [code = 67153-8] Goal Plan of Care Note [code = 30617-8] Goal Plan of Care Note [code = 35812-3] Goal Plan of Care Note [code = 19950-0] Goal Plan of Care Note [code = 59408-8] Goal Plan of Care Note [code = 35339-8] Encounters Start End Encounter Admission Attending Care Care Encounter Source Date/Time Date/Time Type Type Clinicians Facility Department ID 2020-03-13 Inpatient ER WILL [facility] Neurology [id number] [facility] 05:05:00 JESUS ALBERTO 2020-02-27 Inpatient ER ADRIÁN [facility] Neuro ICU [id number] [facility] 22:20:00 SITA 2021-12-06 2021-12-06 Outpatient [id number] 00:00:00 00:00:00 Visit [id number] 2020-03-27 2020-03-27 [facility] [id number] [facility] 00:00:00 00:00:00 ROSANNA Results Test Description Test Time Test Comments Results Result Comments Source HEMOGLOBIN A1c 2021-12-07 06:16:49 Test Item Value Reference Range Interpretation Comme nts HEMOGLOBIN A1c (test code = 7.5 % 4.2-5.6 H [employer] 61048) GUIDELINES FOR HGB A1C: PREDIABETES/INC REASED RISK . . . . . . . 5.7-6.4% DIAGNO SIS OF DIABETES . . . . . . . . . >=6.5% WITH CONFIRMATION OR APPROPRIATE SYM PTOMS NOTE: ASSAY MAY BE AFFECTED BY HEM OGLOBINOPATHIES (SICKLE CELL ANEMIA, S- C DISEASE, OTHERS) OR ARTIFICIALLY LO WERED BY DECREASED RED CELL SURVIVAL ( HEMOLYTIC ANEMIAS, BLOOD LOSS, ETC.). CO NSIDER ALTERNATE TESTING OR LABORATORY C ONSULTATION. UNLESS OTHERWISE INDIC ATED, ALL TESTING PERFORMED [facility], [id number] [place] [address] BASIL DIRECTOR: Abigail MOIA NUMBER [id number] [facility] [id number] COMPREHENSIVE METABOLIC [id number] 05:40:53 Test Item Value Reference Range Interpretation Comments GLUCOSE (test code = 110 MG/DL 70-99 H 2216) BUN (test code = 6 MG/DL 6-20 2207) CREATININE (test 0.66 MG/DL 0.60-1.30 code = 221) eGFR (2020 CKD-EPI) 101 >60 (test code = 55333) ML/MIN/1.73 CALC BUN/CREAT (test 9 RATIO 6-28 code = 2235) SODIUM (test code = 143 MEQ/L 321-434 4550) POTASSIUM (test code 3.2 MEQ/L 3.5-5.4 L = 2227) CHLORIDE (test code 103 MEQ/L 95-107 = 2215) CARBON DIOXIDE (test 28 MEQ/L 19-31 code = 220) CALCIUM (test code = 8.5 MG/DL 8.5-10.5 2208) PROTEIN, TOTAL (test 6.7 G/DL 6.1-8.3 code = 2229) ALBUMIN (test code = 3.8 G/DL 3.5-5.2 2200) CALC GLOBULIN (test 2.9 G/DL 1.9-3.7 code = 2240) CALC A/G RATIO (test 1.3 RATIO 1.0-2.6 code = 2234) BILIRUBIN, TOTAL 0.4 MG/DL See_Comment [Automated message] (test code = 2207) The syste m which generated this result transmit magda reference range : <=1.2. The refe rence range was not u sed to interpret th is result as normal/abnormal . ALKALINE PHOSPHATASE 115 U/L 40-136 (test code = 2204) AST (test code = 12 U/L 9-40 2217) ALT (test code = 13 U/L 5-40 2218) LIPID [id number] 05:40:53 Test Item Value Reference Range Interpretation Comments CHOLESTEROL (test 107 MG/DL <200 code = 2210) TRIGLYCERIDES (test 162 MG/DL <150 H code = 2232) HDL CHOLESTEROL (test 36 MG/DL >39 L code = 2220) CALC LDL CHOL (test 47 MG/DL <100 NOTE: C ALCULATED LDL code = 2237) IS BASED ON ANT-DAS METHOD WHICHINCLUDES ADJUSTABLE TRIGLYCERIDE:VL DL CHOLESTEROL RAT IO.THIS FACTOR VARIES B Y MEASURED TRIGLY CERIDE AND NON-HDLCHOL ESTEROL CONCENTRATIONS WITH INCREASED CALCU LATED LDL SEENIN HIGH ER TRIGLYCERIDE OR LOWER NON-HDL SPECIME NS. FOR MOREINFORMATION , SEE CLIENT ANNOUNCE MENT AT [email or web address] RATIO LDL/HDL 1.31 RATIO <3.22 (test code = 2238) ALBUMIN/CREATININE RATIO, URINE, [id number] 06:54:51 Test Item Value Reference Range Interpretation Comments CREATININE, URINE, 90.9 MG/DL NOT ESTAB RANDOM (test code = 2072) ALBUMIN, URINE, 1.8 MG/DL NOT ESTAB RANDOM (test code = 01627) CALC 20 MG/G <30 Note: Albumin/ Creatinine ALBUMIN/CREAT, RND ratio ref erence interval (test code = reflects [place] [id number]) guidelines. UN LESS OTHERWISE INDIC ATED, ALL TESTING PERFORM ED ATCLINICAL PATH [facility]LOGY LAB[facility]ATORIES, [facility] [facility] [address] [place] [address] LABORATORY DIRE CTOR: [place] CLIA NUMBER [id number] CAP ACCREDITATION N O. [id number] LIPID [id number] 04:28:20 Test Item Value Reference Range Interpretation Comments CHOLESTEROL (test 124 MG/DL <200 code = 2210) TRIGLYCERIDES (test 176 MG/DL <150 H code = 2232) HDL CHOLESTEROL (test 38 MG/DL >39 L code = 2220) CALC LDL CHOL (test 61 MG/DL <100 NOTE: C ALCULATED LDL code = 2237) IS BASED ON ANT-DAS METHOD WHICHINCLUDES ADJUSTABLE TRIGLYCERIDE:VL DL CHOLESTEROL RAT IO.THIS FACTOR VARIES B Y MEASURED TRIGLY CERIDE AND NON-HDLCHOL ESTEROL CONCENTRATIONS WITH INCREASED CALCU LATED LDL SEENIN HIGH ER TRIGLYCERIDE OR LOWER NON-HDL SPECIME NS. FOR MOREINFORMATION , SEE CLIENT ANNOUNCE MENT AT [email or web address] [email or web address] RATIO LDL/HDL 1.61 RATIO <3.22 (test code = 2238) COMPREHENSIVE METABOLIC [id number] 04:28:20 Test Item Value Reference Range Interpretation Comments GLUCOSE (test code = 210 MG/DL 70-99 H 2216) BUN (test code = 7 MG/DL 6-20 2207) CREATININE (test 0.65 MG/DL 0.60-1.30 code = 221) eGFR (2020 CKD-EPI) 101 >60 (test code = 59330) ML/MIN/1.73 CALC BUN/CREAT (test 11 RATIO -28 code = 2235) SODIUM (test code = 139 MEQ/L 701-894 2689) POTASSIUM (test code 3.6 MEQ/L 3.5-5.4 = 2227) CHLORIDE (test code 102 MEQ/L 95-107 = 2214) CARBON DIOXIDE (test 24 MEQ/L 19-31 code = 220) CALCIUM (test code = 9.3 MG/DL 8.5-10.5 2208) PROTEIN, TOTAL (test 7.3 G/DL 6.1-8.3 code = 222) ALBUMIN (test code = 4.0 G/DL 3.5-5.2 2200) CALC GLOBULIN (test 3.3 G/DL 1.9-3.7 code = 2240) CALC A/G RATIO (test 1.2 RATIO 1.0-2.6 code = 2234) BILIRUBIN, TOTAL 0.4 MG/DL See_Comment [Automated message] (test code = 2207) The syste m which generated this result transmit magda reference range : <=1.2. The refe rence range was not u sed to interpret th is result as normal/abnormal . ALKALINE PHOSPHATASE 152 U/L 40-136 H (test code = 2203) AST (test code = 11 U/L 9-40 2217) ALT (test code = 12 U/L 5-40 2218) HEMOGLOBIN [id number] 02:34:28 Test Item Value Reference Range Interpretation Comments HEMOGLOBIN A1c (test 8.4 % 4.2-5.6 H AMERIC AN DIABETES code = 49447) ASSOCIATION IDELINES FOR HGB A1C: PREDIABETES/INC REASED RISK . . . . . . . 5.7 -6.4% DIAGNOSIS OF DI ABETES . . . . . . . . . >=6 .5% WITH CONFIRMATION OR APPROPRIATE SYMPTOMS NOTE: ASSAY MAY BE AFFECTED BY HEMOGLOBINOPATH IES (SICKLE CELL ANEMIA, S- C DISEASE, OTHERS) OR MARLEEN FICIALLY LOWERED BY DECR EASED RED CELL SURVIVAL ( HEMOLYTIC ANEMIAS, BLOOD LOSS, ETC.). CONSIDER ALTERN ATE TESTING OR LABORATORY C ONSULTATION. HEMOGLOBIN [id number] 00:00:00 Test Item Value Reference Range Interpretation Comments HEMOGLOBIN A1c (test code = 31418) 8.4 % HEMOGLOBIN [id number] 00:00:00 Test Item Value Reference Range Interpretation Comments HEMOGLOBIN A1c (test code = 72621) 8.4 % LIPID [id number] 00:00:00 Test Item Value Reference Range Interpretation Comments CHOLESTEROL (test code = 2210) 124 MG/DL TRIGLYCERIDES (test code = 2232) 176 MG/DL HDL CHOLESTEROL (test code = 2220) 38 MG/DL CALC LDL CHOL (test code = 2237) 61 MG/DL RISK RATIO LDL/HDL (test code = 1.61 RATIO 2238) COMPREHENSIVE METABOLIC [id number] 00:00:00 Test Item Value Reference Range Interpretation Comments GLUCOSE (test code = 2217) 210 MG/DL BUN (test code = 2208) 7 MG/DL CREATININE (test code = 2214) 0.65 MG/DL eGFR (2020 CKD-EPI) (test 101 ML/MIN/1.73 code = 58450) CALC BUN/CREAT (test code = 11 RATIO 2235) SODIUM (test code = 2231) 139 MEQ/L POTASSIUM (test code = 2228) 3.6 MEQ/L CHLORIDE (test code = 2215) 102 MEQ/L CARBON DIOXIDE (test code = 24 MEQ/L 2205) CALCIUM (test code = 2209) 9.3 MG/DL PROTEIN, TOTAL (test code = 7.3 G/DL 2228) ALBUMIN (test code = 2201) 4.0 G/DL CALC GLOBULIN (test code = 3.3 G/DL 2239) CALC A/G RATIO (test code = 1.2 RATIO 2234) BILIRUBIN, TOTAL (test code = 0.4 MG/DL 2207) ALKALINE PHOSPHATASE (test 152 U/L code = 2204) AST (test code = 2218) 11 U/L ALT (test code = 2219) 12 U/L MICROALBUMIN/CREATININE, RANDOM AND [id number] 00:00:00 Test Item Value Reference Range Interpretation Comments CREATININE, URINE, RANDOM (test 90.9 MG/DL code = 2072) ALBUMIN, URINE, RANDOM (test code 1.8 MG/DL = 86457) CALC ALBUMIN/CREAT, RND (test code 20 MG/G = 40070) CBC W/AUTO [id number] 00:00:00 Test Item Value Reference Range Interpretation Comments WBC (test code = 1001) 10.8 K/UL RBC (test code = 1002) 4.58 M/UL HEMOGLOBIN (test code = 1003) 12.4 G/DL HEMATOCRIT (test code = 1004) 37.8 % MCV (test code = 1005) 82.5 fL MCH (test code = 1006) 27.1 PG MCHC (test code = 1007) 32.8 G/DL RDW (test code = 1038) 14.2 % NEUTROPHILS (test code = 1008) 62.6 % LYMPHOCYTES (test code = 1010) 27.1 % MONOCYTES (test code = 1011) 8.0 % EOSINOPHILS (test code = 1012) 1.7 % BASOPHILS (test code = 1013) 0.6 % PLATELET COUNT (test code = 1015) 380 K/UL CBC W/AUTO [id number] 00:00:00 Test Item Value Reference Range Interpretation Comments WBC (test code = 1001) 10.8 K/UL RBC (test code = 1002) 4.58 M/UL HEMOGLOBIN (test code = 1003) 12.4 G/DL HEMATOCRIT (test code = 1004) 37.8 % MCV (test code = 1005) 82.5 fL MCH (test code = 1006) 27.1 PG MCHC (test code = 1007) 32.8 G/DL RDW (test code = 1038) 14.2 % NEUTROPHILS (test code = 1008) 62.6 % LYMPHOCYTES (test code = 1010) 27.1 % MONOCYTES (test code = 1011) 8.0 % EOSINOPHILS (test code = 1012) 1.7 % BASOPHILS (test code = 1013) 0.6 % PLATELET COUNT (test code = 1015) 380 K/UL HEMOGLOBIN [id number] 00:00:00 Test Item Value Reference Range Interpretation Comments HEMOGLOBIN A1c (test code = 93725) 7.2 % HEMOGLOBIN [id number] 00:00:00 Test Item Value Reference Range Interpretation Comments HEMOGLOBIN A1c (test code = 70749) 7.2 % LIPID [id number] 00:00:00 Test Item Value Reference Range Interpretation Comments CHOLESTEROL (test code = 2210) 109 MG/DL TRIGLYCERIDES (test code = 2232) 120 MG/DL HDL CHOLESTEROL (test code = 2220) 44 MG/DL CALC LDL CHOL (test code = 2237) 44 MG/DL RISK RATIO LDL/HDL (test code = 1.00 RATIO 2238) COMPREHENSIVE METABOLIC [id number] 00:00:00 Test Item Value Reference Range Interpretation Comments GLUCOSE (test code = 2217) 155 MG/DL BUN (test code = 2208) 13 MG/DL CREATININE (test code = 2214) 0.74 MG/DL eGFR AMER. (test code 103 ML/MIN/1.73 = 84169) eGFR NON- AMER. (test 89 ML/MIN/1.73 code = 99754) CALC BUN/CREAT (test code = 18 RATIO 2235) SODIUM (test code = 2231) 140 MEQ/L POTASSIUM (test code = 2228) 4.3 MEQ/L CHLORIDE (test code = 2215) 104 MEQ/L CARBON DIOXIDE (test code = 25 MEQ/L 2205) CALCIUM (test code = 2209) 9.2 MG/DL PROTEIN, TOTAL (test code = 7.3 G/DL 2228) ALBUMIN (test code = 2201) 4.2 G/DL CALC GLOBULIN (test code = 3.1 G/DL 2240) CALC A/G RATIO (test code = 1.4 RATIO 2234) BILIRUBIN, TOTAL (test code = 0.3 MG/DL 2206) ALKALINE PHOSPHATASE (test 126 U/L code = 2204) AST (test code = 2218) 17 U/L ALT (test code = 2219) 19 U/L [id number] 00:00:00 Test Item Value Reference Range Interpretation Comments TSH, THIRD GENERATION (test code 1.430 UIU/ML = 2821) [id number] 00:00:00 Test Item Value Reference Range Interpretation Comments TSH, THIRD GENERATION (test code 1.430 UIU/ML = 2821) RISHI, EMBOLIZATION, [id number] 13:13:00For 03/17 after first caseReason for exam:->right MMA embolization for chronic subdural hematomaAne sthesia:->General [facility]STRADA : 1960 Sex: FFINAL REPORT Date of Procedure: 03/17/2020 Surgeon: TODD ZarateAssistant: Jeremy Puente M.D. Pre-operative diagnosis: Chronic subdural hematomaPost-operative diagnosis: Chronic subdural hematoma Procedure: Right middle meningeal artery embolization Anesthesiologist: per anesthesia re cordsAnesthesia Type: General Complications: None apparent Vessel Injections: 1. Left femoral artery2. Right common carotid artery3. Right external carotid artery Indication for procedure: Patient is a59 female with a history of CAD status post PCI on DAPT, complicated by complete heart block status post pacemaker placement, recently admitted for dizziness and nausea with a small nonoperative acute subdural hematoma, who presents with worsening headaches, found to have an evolving subdural hematoma. She was admitted to the neuro ICU and reversed with platelet transfusions. She was taken to the OR on 03/14/2024 emergent evacuation of the subdural given its evolution. Intraoperatively she was foundto have complex, loculated membranes, and a postoperatively she was found to have residual subdural.A middle meningeal artery embolization was recommended. Procedure in Detail: Following explanation of the benefits, risks and alternatives for the procedure, informed consent was obtained from the patie nt. The risks including but not limited to stroke, intracranial hemorrhage, vascular injury to the cervical or access vessels were discussed, and blindness. A time-out was performed. Both groins and wrists were prepped in the usual sterile fashion using Chloroprep, and sterilely draped. Access was attempted at the right femoral artery under ultrasound guidance but could not be obtained. Access was obtained at the left femoral artery under ultrasound guidance (see medical records for imaging) And a 8French sheath was placed and maintained on heparinized flush. A 6 Maltese Envoy guide catheter and 5 Maltese Select catheter were introduced and brought into the aortic arch under fluoroscopic guidance. U sing fluoroscopic and roadmap guidance the Select catheter was used to catheterize the right common carotid artery, and superselective catheterization of the middle meningeal artery with an SL-10 microcatheter and a Synchro 14 microwire. Upon each successive selective catheterization, digital subtraction angiography using the appropriate rate and volume of contrast in multiple projections was performed. Following the external carotid run and under roadmap guidance the micro-catheter was brought up into the middle meningeal artery over a microwire. A superselective run of the middle meningeal arterywas obtained. The distal microcatheter was brought up first to the parietal branch and then the frontal branch. Once adequate location was confirmed 150-250 um particles were injected into the parietalbranch of the middle meningeal artery are continuous fluoroscopic surveillance. Once filling slowed we transitioned to coil embolization. Aurora Target Kirsten-coils and Microvention MicroPlex were used to embolize this vessel. Kirsten 1 mm x 2 cm, 1 mm x 3 cm coils, and Microplex 1 mm x 2 cm coil were used to embolize the parietal branch. A superselective control run at this point demonstrated obstruction of flow without distal filling past the coil mass. A similar procedure was done to the frontal branch, first injecting particles and then coil embolizing the vessel with two 1 mm x 2 cm, and three 1.5x mm x 2 cm Microplex coils. A second superselective control run at this point demonstrated no distal filling past the coil mass. A control angiogram was performed and there was no change in the intracranial vasculature arbor. At this point the case was concluded and all sheaths and catheters were removed. A Mynx closure device was used to close the arteriotomy. Findings: Right Femoral Artery (AP andLateral)-The sheath enters just above the femoral bifurcation. The femoral artery and bifurcation are widely patent without evidence of ulceration or stenosis. Right Common Carotid Artery - Cervical (AP, Lateral)-The origins of the right internal and external carotid arteries are widely patent withoutevidence of ulceration or stenosis. Right Common Carotid Artery - Cranial (AP, Lateral)-The visualized branches of the external carotid artery are normal in course and appearance. There is no evidence of arteriovenous shunting. The capillary and venous phases are normal -The cervical carotid artery ispatent without areas of stenosis, dissection or ulceration; and is without branches -The petrous carotid artery is patent without areas of stenosis, dissection or ulceration the mandibulovidian artery is not visualized, no petrosal segment aneurysms -The cavernous carotid artery is patent without areas of stenosis, dissection, or ulceration, meningohypophyseal trunk and inferolateral trunks are not visualized, there are no cavernous segment aneurysms -The supraclinoidal carotid artery, the opthalmic, communicating, and choroidal segments are patent without areas of stenosis and without aneurysms. The posterior communicating artery is large and size, possibly a FARM EQUIPMENT ENGINEER, and the anterior choroidalartery is visualized. The A1 and M1 segments are visualized and are without stenosis or vasospasm. -The MIRIAN fill physiologically throughout their territory without cross-filling across the anterior comm unicating artery. There is no noted stenosis or vasospasm noted within its branches. There are no noted aneurysms of the pericallosal or callosomarginal branches. There is no evidence of arteriovenous shunting -The MCA's fill physiologically throughout their territory there is no noted stenosis, occlusion or vasospasm noted within its branches. There is no evidence for aneurysm. There is no evidence of arteriovenous shunting. -The capillary phase is normal without areas of malperfusion, the venous phase demonstrates a normal venous draining pattern Right External Carotid Artery (AP, lateral) -Normal branching of external carotid artery without evidence of stenosis, dissection, or ulceration. Frontal and partial branched identified. -Middle meningeal artery frontal and parietal branch embolizationwithout distal filling. Meningeal skull base branches preserved. No meningo-ophthalmic variant seen.Summary of Findings 1. Successful embolization of right middle meningeal artery. 2. No clinical or ra diographic evidence of complications. Signed: r[employer]ving [employer] Verified Date/Time: 03/20/2020 13:13:46 Reading Location: [facility] B1 Y026 Neuro Angio Reading Room POCT- GLUCOSE [id number] 11:40:00 Test Item Value Reference Range Interpretation Comments POC-GLUCOSE METER 152 mg/dL 70-110 H : TESTED A T [facility] 6720 (BEAKER) (test code = [facility], 1538) [address]: Global Marketing Operations Manager/Techni john ID = [id number] for Esperanza Monreal POCT-GLUCOSE [id number] 06:49:00 Test Item Value Reference Range Interpretation Comments POC-GLUCOSE METER 130 mg/dL 70-110 H : TESTED A T [facility] 6720 (BEAKER) (test code = [facility] Ruth [facility], 1538) [address]: Global Marketing Operations Manager/Techni john ID = [id number] for Shaggy Hall CALCIUM, [id number] 06:13:00 Test Item Value Reference Range Interpretation Comments CALCIUM IONIZED (BEAKER) (test 1.11 mmol/L 1.12-1.27 L code = 698) PH, BLOOD (BEAKER) (test code = 7.40 1810) CT, BRAIN, WITHOUT [id number] 05:00:00Unlisted Reason for Exam - Click Yes and Enter Reason Below->No [facility]ame: CHRISSIE ESTRADA : 1960 Sex: FFINAL REPORT EXAM: CT head without contrast. CLINICAL HISTORY: Subdural hematoma COMPARISON: Head CT 03/15/2020. TECHNIQUE: CT images of the head were obtained without intravenous contrast. This exam was performed according to our departmental dose optimization program which includes automated exposure control, adjustment of the mA and/or kV according to patient's size and/or use of iterative reconstructive technique. FINDINGS:The patient is status post right parietal craniotomy for previously noted right cerebral convexity subdural hematoma evacuationThere is a stable small right convexity mixed density subdural hematoma measuring up to 6 mm. There is associated mild parenchymal masseffect. There is mild diffuse sulcal effacement in the right cerebral hemisphere. There is a stable 5 mm upcuc-fj-ljzl midline shift.There are stable thin right parafalcine and right tentorial subduralhematomas.There is mild pneumocephalus, decreased.There are mild white matter microvascular ischemic changes.There is no hydrocephalus or large demarcated acute territorial infarct. The basal cisterns are patent. The visualized orbits are normal. There is mild bilateral maxillary sinus mucosal thickening. The visualized tympanomastoid cavities are clear. IMPRESSION: Postsurgical changes from right parietal craniotomy for subdural hematoma evacuation.Stable small mixed density right cerebral convexity subdural hematoma. With mild parenchymal mass effect. Stable nypzn-ob-ealx midline shift.Stable thin right parafalcine and right tentorial subdural hematomas. Signed: Paul Charlton [facility] Verified Date/Time: 03/18/2020 05:00:25 BASIC METABOLIC [id number] 04:38:00 Test Item Value Reference Range Interpretation Comments SODIUM (BEAKER) 137 meq/L 136-145 (test code = 381) POTASSIUM (BEAKER) 3.8 meq/L 3.5-5.1 (test code = 379) CHLORIDE (BEAKER) 106 meq/L 98-107 (test code = 382) CO2 (BEAKER) (test 19 meq/L 22-29 L code = 355) BLOOD UREA NITROGEN 11 mg/dL 7-21 (BEAKER) (test code = 354) CREATININE (BEAKER) 0.55 mg/dL 0.57-1.25 L (test code = 358) GLUCOSE RANDOM 150 mg/dL 70-105 H (BEAKER) (test code = 652) CALCIUM (BEAKER) 8.2 mg/dL 8.4-10.2 L (test code = 697) EGFR (BEAKER) (test 114 mL/min/1.73 ESTIM ATED GFR IS code = 1092) sq m NOT ACCURATE CREATININE CLEARANCE IN PREDICTING GLOMERULAR FILTRATION RATE . ESTIMATED GFR I S NOT APPLICABLE FOR DIALYSIS PATIEN TS. Global Marketing Operations Manager ID - [id number] 04:38:00 Test Item Value Reference Range Interpretation Comments MAGNESIUM (BEAKER) (test code = 1.8 mg/dL 1.6-2.6 627) Global Marketing Operations Manager ID - [id number] 04:38:00 Test Item Value Reference Range Interpretation Comments PHOSPHORUS (BEAKER) (test code = 2.8 mg/dL 2.3-4.7 604) Global Marketing Operations Manager ID - ADMINCBC W/PLT COUNT & AUTO [id number] 04:29:00 Test Item Value Reference Range Interpretation Comments WHITE BLOOD CELL COUNT (BEAKER) 15.5 K/ L 3.5-10.5 H (test code = 775) RED BLOOD CELL COUNT (BEAKER) 4.12 M/ L 3.93-5.22 (test code = 761) HEMOGLOBIN (BEAKER) (test code = 11.7 GM/DL 11.2-15.7 410) HEMATOCRIT (BEAKER) (test code = 36.7 % 34.1-44.9 411) MEAN CORPUSCULAR VOLUME (BEAKER) 89.1 fL 79.4-94.8 (test code = 753) MEAN CORPUSCULAR HEMOGLOBIN 28.4 pg 25.6-32.2 (BEAKER) (test code = 751) MEAN CORPUSCULAR HEMOGLOBIN CONC 31.9 GM/DL 32.2-35.5 L (BEAKER) (test code = 752) RED CELL DISTRIBUTION WIDTH 14.4 % 11.7-14.4 (BEAKER) (test code = 412) PLATELET COUNT (BEAKER) (test 388 K/CU MM 150-450 code = 756) MEAN PLATELET VOLUME (BEAKER) 9.0 fL 9.4-12.3 L (test code = 754) NUCLEATED RED BLOOD CELLS 0 /100 WBC 0-0 (BEAKER) (test code = 413) NEUTROPHILS RELATIVE PERCENT 86 % (BEAKER) (test code = 429) LYMPHOCYTES RELATIVE PERCENT 8 % (BEAKER) (test code = 430) MONOCYTES RELATIVE PERCENT 5 % (BEAKER) (test code = 431) EOSINOPHILS RELATIVE PERCENT 0 % (BEAKER) (test code = 432) BASOPHILS RELATIVE PERCENT 0 % (BEAKER) (test code = 437) NEUTROPHILS ABSOLUTE COUNT 13.26 K/ L 1.56-6.13 H (BEAKER) (test code = 670) LYMPHOCYTES ABSOLUTE COUNT 1.31 K/ L 1.18-3.74 (BEAKER) (test code = 414) MONOCYTES ABSOLUTE COUNT (BEAKER) 0.81 K/ L 0.24-0.36 H (test code = 415) EOSINOPHILS ABSOLUTE COUNT 0.00 K/ L 0.04-0.36 L (BEAKER) (test code = 416) BASOPHILS ABSOLUTE COUNT (BEAKER) 0.01 K/ L 0.01-0.08 (test code = 417) IMMATURE GRANULOCYTES-RELATIVE 1 % 0-1 PERCENT (BEAKER) (test code = 2801) POCT-GLUCOSE [id number] 22:17:00 Test Item Value Reference Range Interpretation Comments POC-GLUCOSE METER 171 mg/dL 70-110 H : TESTED A T [facility] 6720 ([facility]) (test code = [facility], 153) 18646: Global Marketing Operations Manager/Techni john ID = [id number] for Shaggy Hall POCT-GLUCOSE [id number] 16:50:00 Test Item Value Reference Range Interpretation Comments POC-GLUCOSE METER 169 mg/dL 70-110 H : Notified RN/MD: ([facility]) (test code = TESTED AT [place] [id number]) [facility], [address]: Global Marketing Operations Manager/Techni john ID = [id number] for Esperanza Monreal POCT-GLUCOSE [id number] 08:36:00 Test Item Value Reference Range Interpretation Comments POC-GLUCOSE METER 152 mg/dL 70-110 H : TESTED A T [facility] 6720 ([facility]) (test code = [facility], 153) [address]: Global Marketing Operations Manager/Techni john ID = [id number] for MOHAN MCCURDY BASIC METABOLIC [id number] 06:16:00 Test Item Value Reference Range Interpretation Comments SODIUM (BEAKER) 135 meq/L 136-145 L (test code = 381) POTASSIUM (BEAKER) 3.5 meq/L 3.5-5.1 (test code = 379) CHLORIDE (BEAKER) 102 meq/L 98-107 (test code = 382) CO2 (BEAKER) (test 24 meq/L 22-29 code = 355) BLOOD UREA NITROGEN 10 mg/dL 7-21 (BEAKER) (test code = 354) CREATININE (BEAKER) 0.65 mg/dL 0.57-1.25 (test code = 358) GLUCOSE RANDOM 154 mg/dL 70-105 H (BEAKER) (test code = 652) CALCIUM (BEAKER) 8.6 mg/dL 8.4-10.2 (test code = 697) EGFR (BEAKER) (test 94 mL/min/1.73 ESTIMA MAGDA GFR IS code = 1092) sq m NOT ACCURATE CREATININE CLEARANCE IN PREDICTING GLOMERULAR FILTRATION RATE . ESTIMATED GFR I S NOT APPLICABLE FOR DIALYSIS PATIEN TS. Global Marketing Operations Manager ID - ADMINCBC W/PLT COUNT & AUTO [id number] 05:49:00 Test Item Value Reference Range Interpretation Comments WHITE BLOOD CELL COUNT (BEAKER) 15.9 K/ L 3.5-10.5 H (test code = 775) RED BLOOD CELL COUNT (BEAKER) 4.24 M/ L 3.93-5.22 (test code = 761) HEMOGLOBIN (BEAKER) (test code = 12.2 GM/DL 11.2-15.7 410) HEMATOCRIT (BEAKER) (test code = 37.5 % 34.1-44.9 411) MEAN CORPUSCULAR VOLUME (BEAKER) 88.4 fL 79.4-94.8 (test code = 753) MEAN CORPUSCULAR HEMOGLOBIN 28.8 pg 25.6-32.2 (BEAKER) (test code = 751) MEAN CORPUSCULAR HEMOGLOBIN CONC 32.5 GM/DL 32.2-35.5 (BEAKER) (test code = 752) RED CELL DISTRIBUTION WIDTH 14.5 % 11.7-14.4 H (BEAKER) (test code = 412) PLATELET COUNT (BEAKER) (test 441 K/CU MM 150-450 code = 756) MEAN PLATELET VOLUME (BEAKER) 9.1 fL 9.4-12.3 L (test code = 754) NUCLEATED RED BLOOD CELLS 0 /100 WBC 0-0 (BEAKER) (test code = 413) NEUTROPHILS RELATIVE PERCENT 73 % (BEAKER) (test code = 429) LYMPHOCYTES RELATIVE PERCENT 19 % (BEAKER) (test code = 430) MONOCYTES RELATIVE PERCENT 7 % (BEAKER) (test code = 431) EOSINOPHILS RELATIVE PERCENT 1 % (BEAKER) (test code = 432) BASOPHILS RELATIVE PERCENT 0 % (BEAKER) (test code = 437) NEUTROPHILS ABSOLUTE COUNT 11.69 K/ L 1.56-6.13 H (BEAKER) (test code = 670) LYMPHOCYTES ABSOLUTE COUNT 2.96 K/ L 1.18-3.74 (BEAKER) (test code = 414) MONOCYTES ABSOLUTE COUNT (BEAKER) 1.04 K/ L 0.24-0.36 H (test code = 415) EOSINOPHILS ABSOLUTE COUNT 0.14 K/ L 0.04-0.36 (BEAKER) (test code = 416) BASOPHILS ABSOLUTE COUNT (BEAKER) 0.03 K/ L 0.01-0.08 (test code = 417) IMMATURE GRANULOCYTES-RELATIVE 1 % 0-1 PERCENT (BEAKER) (test code = 2801) POCT-GLUCOSE [id number] 20:45:00 Test Item Value Reference Range Interpretation Comments POC-GLUCOSE METER 160 mg/dL 70-110 H : Notified RN/MD: (YOON) (test code = TESTED AT [facility] 6761 9625) [facility], [address]: Global Marketing Operations Manager/Techni john ID = [id number] for CINTHYA SIMS PROTHROMBIN TIME/[id number] 18:22:00 Test Item Value Reference Range Interpretation Comments PROTIME (BEAKER) (test code = 13.7 seconds 11.9-14.2 759) INR (BEAKER) (test code = 370) 1.08 <=5.90 Effective 10/10/2018: PT Reference Range ChangeNew: 11.9-14.2 Previous: 11.7- 14.7RECOMMENDED COUMADIN/WARFARIN INR THERAPY RANGESSTANDARD DOSE: 2.0-3.0 Includes: PROPHYLAXIS for venous thrombosis, systemic embolization; TREATMENT for venous thrombosis and/or pulmonary embolus.HIGH RISK: Target INR is 2.5-3.5 for patients wiht mechanical heart valves.PT/[id number] 17:48:00 Test Item Value Reference Range Interpretation Comments PROTIME (BEAKER) (test code = 759) > seconds 11.9-14.2 H INR (BEAKER) (test code = 370) > <=5.90 HH PARTIAL THROMBOPLASTIN TIME > seconds 22.5-36.0 HH (BEAKER) (test code = 760) Effective 10/10/2018: PT Reference Range ChangeNew: 11.9-14.2 Previous: 11.7- 14.7RECOMMENDED COUMADIN/WARFARIN INR THERAPY RANGESSTANDARD DOSE: 2.0-3.0 Includes: PROPHYLAXIS for venous thrombosis, systemic embolization; TREATMENT for venous thrombosis and/or pulmonary embolus.HIGH RISK: Target INR is 2.5-3.5 for patients wiht mechanical heart valves.POCT-GLUCOSE [id number] 17:37:00 Test Item Value Reference Range Interpretation Comments POC-GLUCOSE METER 182 mg/dL 70-110 H : TESTED A T [facility] 6720 (BEAmootoon) (test code = ELMO Miranda [facility], 1538) [id number]: Global Marketing Operations Manager/Techni john ID = [id number] for Lan Shaffer [id number] 16:53:00 Test Item Value Reference Range Interpretation Comments FIBRINOGEN LEVEL (BEAKER) (test 391 mg/dl 225-434 code = 658) POCT-GLUCOSE [id number] 13:39:00 Test Item Value Reference Range Interpretation Comments POC-GLUCOSE METER 137 mg/dL 70-110 H : TESTED A T [facility] 6720 (BEAmootoon) (test code = ELMO Miranda [facility], 1538) [id number]: Global Marketing Operations Manager/Techni john ID = [id number] for Lan Shaffer BASIC METABOLIC [id number] 06:01:00 Test Item Value Reference Range Interpretation Comments SODIUM (BEAKER) 135 meq/L 136-145 L (test code = 381) POTASSIUM (BEAKER) 3.6 meq/L 3.5-5.1 (test code = 379) CHLORIDE (BEAKER) 104 meq/L 98-107 (test code = 382) CO2 (BEAKER) (test 23 meq/L 22-29 code = 355) BLOOD UREA NITROGEN 11 mg/dL 7-21 (BEAKER) (test code = 354) CREATININE (BEAKER) 0.65 mg/dL 0.57-1.25 (test code = 358) GLUCOSE RANDOM 185 mg/dL 70-105 H (BEAKER) (test code = 652) CALCIUM (BEAKER) 8.2 mg/dL 8.4-10.2 L (test code = 697) EGFR (BEAKER) (test 94 mL/min/1.73 ESTIMA MAGDA GFR IS code = 1092) sq m NOT ACCURATE CREATININE CLEARANCE IN PREDICTING GLOMERULAR FILTRATION RATE . ESTIMATED GFR I S NOT APPLICABLE FOR DIALYSIS PATIEN TS. Global Marketing Operations Manager ID - DBCBC W/PLT COUNT & AUTO [id number] 05:48:00 Test Item Value Reference Range Interpretation Comments WHITE BLOOD CELL COUNT (BEAKER) 19.7 K/ L 3.5-10.5 H (test code = 775) RED BLOOD CELL COUNT (BEAKER) 4.05 M/ L 3.93-5.22 (test code = 761) HEMOGLOBIN (BEAKER) (test code = 11.5 GM/DL 11.2-15.7 410) HEMATOCRIT (BEAKER) (test code = 36.1 % 34.1-44.9 411) MEAN CORPUSCULAR VOLUME (BEAKER) 89.1 fL 79.4-94.8 (test code = 753) MEAN CORPUSCULAR HEMOGLOBIN 28.4 pg 25.6-32.2 (BEAKER) (test code = 751) MEAN CORPUSCULAR HEMOGLOBIN CONC 31.9 GM/DL 32.2-35.5 L (BEAKER) (test code = 752) RED CELL DISTRIBUTION WIDTH 14.1 % 11.7-14.4 (BEAKER) (test code = 412) PLATELET COUNT (BEAKER) (test 424 K/CU MM 150-450 code = 756) MEAN PLATELET VOLUME (BEAKER) 9.2 fL 9.4-12.3 L (test code = 754) NUCLEATED RED BLOOD CELLS 0 /100 WBC 0-0 (BEAKER) (test code = 413) NEUTROPHILS RELATIVE PERCENT 78 % (BEAKER) (test code = 429) LYMPHOCYTES RELATIVE PERCENT 16 % (BEAKER) (test code = 430) MONOCYTES RELATIVE PERCENT 5 % (BEAKER) (test code = 431) EOSINOPHILS RELATIVE PERCENT 0 % (BEAKER) (test code = 432) BASOPHILS RELATIVE PERCENT 0 % (BEAKER) (test code = 437) NEUTROPHILS ABSOLUTE COUNT 15.40 K/ L 1.56-6.13 H (BEAKER) (test code = 670) LYMPHOCYTES ABSOLUTE COUNT 3.11 K/ L 1.18-3.74 (BEAKER) (test code = 414) MONOCYTES ABSOLUTE COUNT (BEAKER) 1.01 K/ L 0.24-0.36 H (test code = 415) EOSINOPHILS ABSOLUTE COUNT 0.03 K/ L 0.04-0.36 L (BEAKER) (test code = 416) BASOPHILS ABSOLUTE COUNT (BEAKER) 0.03 K/ L 0.01-0.08 (test code = 417) IMMATURE GRANULOCYTES-RELATIVE 1 % 0-1 PERCENT (BEAKER) (test code = 2801) POCT-GLUCOSE [id number] 20:51:00 Test Item Value Reference Range Interpretation Comments POC-GLUCOSE METER 209 mg/dL 70-110 H : Notified RN/MD: ([facility]) (test code = TESTED AT [place] [id number] 1538) GET [facility], [address]: Global Marketing Operations Manager/Techni john ID = [id number] for CINTHYA SIMS POCT-GLUCOSE [id number] 18:02:00 Test Item Value Reference Range Interpretation Comments POC-GLUCOSE METER 178 mg/dL 70-110 H : TESTED A T [place] [address] ([facility]) (test code = ELMO Miranda [facility], 1538) [address]: Global Marketing Operations Manager/Techni john ID = [id number] for JASS MCQUEEN RAD, CHEST, 1 VIEW, NON [id number] 14:34:00Reason for exam:->SOBShould this be performed at the bedside?->Yes [facility] Diaz : 1960 Sex: FFINAL REPORT Chest, one view HISTORY: Shortness of breath Comparison: 03/13/2020 Findings: Lungs: Increasing bilateral interstitial opacities, suggesting pulmonary edema. Heart: Cardiac silhouette is mildly enlarged. Pleura: No pleural effusion or pneumothorax. Bones: Unremarkable. Lines/tubes: Unchanged cardiac pacer. Signed: Raudel Vo MDReport Verified Date/Time: 03/15/2020 14:34:36 Reading Location: [address] Transitional Reading Room POCT-GLUCOSE [id number] 12:58:00 Test Item Value Reference Range Interpretation Comments POC-GLUCOSE METER 221 mg/dL 70-110 H : Notified RN/MD: ([facility]) (test code = TESTED AT [facility] 6720 1538) [facility], [address]: Global Marketing Operations Manager/Techni john ID = [id number] for WHITNEY VILLALTA JARAD CBC W/PLT COUNT & AUTO [id number] 07:11:00 Test Item Value Reference Range Interpretation Comments WHITE BLOOD CELL COUNT (BEAKER) 18.5 K/ L 3.5-10.5 H (test code = 775) RED BLOOD CELL COUNT (BEAKER) 4.19 M/ L 3.93-5.22 (test code = 761) HEMOGLOBIN (BEAKER) (test code = 11.9 GM/DL 11.2-15.7 410) HEMATOCRIT (BEAKER) (test code = 36.9 % 34.1-44.9 411) MEAN CORPUSCULAR VOLUME (BEAKER) 88.1 fL 79.4-94.8 (test code = 753) MEAN CORPUSCULAR HEMOGLOBIN 28.4 pg 25.6-32.2 (BEAKER) (test code = 751) MEAN CORPUSCULAR HEMOGLOBIN CONC 32.2 GM/DL 32.2-35.5 (BEAKER) (test code = 752) RED CELL DISTRIBUTION WIDTH 13.7 % 11.7-14.4 (BEAKER) (test code = 412) PLATELET COUNT (BEAKER) (test 437 K/CU MM 150-450 code = 756) MEAN PLATELET VOLUME (BEAKER) 9.0 fL 9.4-12.3 L (test code = 754) NUCLEATED RED BLOOD CELLS 0 /100 WBC 0-0 (BEAKER) (test code = 413) NEUTROPHILS RELATIVE PERCENT 87 % (BEAKER) (test code = 429) LYMPHOCYTES RELATIVE PERCENT 8 % (BEAKER) (test code = 430) MONOCYTES RELATIVE PERCENT 4 % (BEAKER) (test code = 431) EOSINOPHILS RELATIVE PERCENT 0 % (BEAKER) (test code = 432) BASOPHILS RELATIVE PERCENT 0 % (BEAKER) (test code = 437) NEUTROPHILS ABSOLUTE COUNT 16.18 K/ L 1.56-6.13 H (BEAKER) (test code = 670) LYMPHOCYTES ABSOLUTE COUNT 1.47 K/ L 1.18-3.74 (BEAKER) (test code = 414) MONOCYTES ABSOLUTE COUNT (BEAKER) 0.75 K/ L 0.24-0.36 H (test code = 415) EOSINOPHILS ABSOLUTE COUNT 0.00 K/ L 0.04-0.36 L (BEAKER) (test code = 416) BASOPHILS ABSOLUTE COUNT (BEAKER) 0.02 K/ L 0.01-0.08 (test code = 417) IMMATURE GRANULOCYTES-RELATIVE 1 % 0-1 PERCENT (BEAKER) (test code = 2801) POCT-GLUCOSE [id number] 06:54:00 Test Item Value Reference Range Interpretation Comments POC-GLUCOSE METER 194 mg/dL 70-110 H : TESTED A T [facility] 6720 (BEAKER) (test code = ELMO Miranda [place], 1538) [address]: Global Marketing Operations Manager/Techni john ID = [id number] for REBEKAH CAREY CT, BRAIN, WITHOUT [id number] 05:45:00Unlisted Reason for Exam - Click Yes and Enter Reason Below->No [facility]STRADA : 1960 Sex: FFINAL REPORT EXAM: CT head without contrast. CLINICAL HISTORY: Cerebral hemorrhage suspected COMPARISON: Head CT 03/13/2020. TECHNIQUE: CT images of the head were obtained without intravenous contrast. This exam was performed according to our departmental dose optimization program which includes automated exposure control, adjustment of the mA and/or kV according to patient's size and/oruse of iterative reconstructive technique. FINDINGS: The patient is status post right parietal craniotomy for right cerebral convexity subdural hematoma evacuation. The subdural hematoma has mildly increased measuring 6 mm in maximum thickness (previously measured up to 9 mm). There is mild parenchymal mass effect. There is mild diffuse sulcal effacement in the right cerebral hemisphere. There is a 5mm gsoie-ul-mgdq midline shift (previously measured 9 mm). There are stable thin posterior parafalcine and right tentorial subdural hematomas. There is no hydrocephalus or large demarcated acute territorial infarct. The basal cisterns are patent. The visualized orbits are normal. There is mild bilateral maxillary sinus mucosal thickening. The visualized tympanomastoid cavities are clear. IMPRESSION: Status post right-sided craniotomy with mild interval decrease in size of right cerebral convexity sub dural hematoma. Associated mass effect. Decreased agnwe-ek-dmwk midline shift. No hydrocephalus. Stable thin posterior parafalcine and right tentorial subdural hematomas. Signed: Paul Charlton MDReportVerified Date/Time: 03/15/2020 05:45:30 BASIC METABOLIC [id number] 05:43:00 Test Item Value Reference Range Interpretation Comments SODIUM (BEAKER) 137 meq/L 136-145 (test code = 381) POTASSIUM (BEAKER) 4.0 meq/L 3.5-5.1 (test code = 379) CHLORIDE (BEAKER) 107 meq/L 98-107 (test code = 382) CO2 (BEAKER) (test 20 meq/L 22-29 L code = 355) BLOOD UREA NITROGEN 9 mg/dL 7-21 (BEAKER) (test code = 354) CREATININE (BEAKER) 0.62 mg/dL 0.57-1.25 (test code = 358) GLUCOSE RANDOM 164 mg/dL 70-105 H (BEAKER) (test code = 652) CALCIUM (BEAKER) 8.5 mg/dL 8.4-10.2 (test code = 697) EGFR (BEAKER) (test 99 mL/min/1.73 ESTIMA MAGDA GFR IS code = 1092) sq m NOT ACCURATE CREATININE CLEARANCE IN PREDICTING GLOMERULAR FILTRATION RATE . ESTIMATED GFR I S NOT APPLICABLE FOR DIALYSIS PATIEN TS. Global Marketing Operations Manager ID - EDASIPOCT-GLUCOSE [id number] 02:37:00 Test Item Value Reference Range Interpretation Comments POC-GLUCOSE METER 222 mg/dL 70-110 H : TESTED A T [facility] 6720 (BEAKER) (test code = [facility], 153) [address]: Global Marketing Operations Manager/Techni john ID = [id number] for AURELIO, REBEKAH TH POCT-GLUCOSE [id number] 19:11:00 Test Item Value Reference Range Interpretation Comments POC-GLUCOSE METER 214 mg/dL 70-110 H : TESTED A T [facility] 6720 (BEAKER) (test code = [facility], 153) [address]: Global Marketing Operations Manager/Techni john ID = [id number] for FL ORES, JASS POCT-GLUCOSE [id number] 13:51:00 Test Item Value Reference Range Interpretation Comments POC-GLUCOSE METER 179 mg/dL 70-110 H : TESTED A T [facility] 6720 (BEAKER) (test code = [facility], 153) [address]: Global Marketing Operations Manager/Techni john ID = [id number] for [place] RELA, BOLA POCT-GLUCOSE [id number] 13:49:00 Test Item Value Reference Range Interpretation Comments POC-GLUCOSE METER 172 mg/dL 70-110 H : TESTED A T [facility] 6720 (BEAKER) (test code = [facility], 153) [address]: Global Marketing Operations Manager/Techni john ID = [id number] for [place] RELA, BOLA SARS-COV2/RT-PCR ([facility])2020-03-14 05:54:00 Test Item Value Reference Range Interpretation Comments SARS-COV2/RT-PCR (test code Negative Not Detected, Negative, = 5158915) See external report for linked test SARS-COV-2 PERFORMING LAB [facility] (test code = 1207937) Negative results do not preclude SARS-CoV-2 infection and should not be used as the sole basis for patient management decisions. Negative results must be combined with clinical observations, patient history, and epidemiological information. A false negative result may occur if a specimen is improperly collected, transported or handled.The limit of detection for this assay is 250 copies/mL.This SARS CoV-2 test is a rapid, real-time RT-PCR test intended for the qualitative detection of nucleic acid from SARS-CoV-2 in a nasopharyngeal swab specimen collected from individuals suspected of COVID-19 by their healthcare provider.This test has not been Food and Drug Administration (FDA) cleared or approved and has been authorized by FDA under an Emergency Use Authorization (EUA). This EUA will be effective until the declaration that circumstances exist justifying the authorization of the emergency use of in vitro diagnostic tests for detection and/or diagnosis of COVID-19 is terminated under Section 564(b)(2) of the Act or the EUA is revoked under Section 564(g) of the Act.Fact Sheet for Healthcare Pro viders:https://www.[employer].ArticleAlley/Documents/Xpert%20Xpress%20SARS%20CoV-2/Fact%20Sh eets/302-3802%98WJYL-ONE-4%20HEALTHCARE%20PROVIDERS%20FACT%20SHEET.pdfFact Sheet for Healthcare Patients:https://www.[facility] id.ArticleAlley/Documents/Xpert%20Xpress%20SARS%20CoV-2/Fact%20Sheets/302-3801%20SARS-COV -2%20PATIENT%20FACT%20SHEET.pdfPerforming Laboratory:[facility], [place] [address]FQEPGZGLF SCREEN, [id number] 05:21:00 Test Item Value Reference Range Interpretation Comments TEST URINE (BEAKER) (test Negative code = 583) B-TYPE NATRIURETIC FACTOR (BNP)2020-03-14 05:19:00 Test Item Value Reference Range Interpretation Comments B-TYPE NATRIURETIC PEPTIDE (BEAKER) 39 pg/mL 0-100 (test code = 700) Global Marketing Operations Manager ID - KAYLAH MBASIC METABOLIC [id number] 05:10:00 Test Item Value Reference Range Interpretation Comments SODIUM (BEAKER) 137 meq/L 136-145 (test code = 381) POTASSIUM (BEAKER) 4.0 meq/L 3.5-5.1 Specimen slightly (test code = 379) hemolyzed CHLORIDE (BEAKER) 104 meq/L 98-107 (test code = 382) CO2 (BEAKER) (test 22 meq/L 22-29 code = 355) BLOOD UREA NITROGEN 6 mg/dL 7-21 L (BEAKER) (test code = 354) CREATININE (BEAKER) 0.66 mg/dL 0.57-1.25 Specimen slightly (test code = 358) hemolyzed GLUCOSE RANDOM 185 mg/dL 70-105 H (BEAKER) (test code = 652) CALCIUM (BEAKER) 8.6 mg/dL 8.4-10.2 (test code = 697) EGFR (BEAKER) (test 92 mL/min/1.73 ESTIMA MAGDA GFR IS code = 1092) sq m NOT ACCURATE CREATININE CLEARANCE IN PREDICTING GLOMERULAR FILTRATION RATE . ESTIMATED GFR I S NOT APPLICABLE FOR DIALYSIS PATIEN TS. Global Marketing Operations Manager ID - EDASICBC W/PLT COUNT & AUTO [id number] 04:47:00 Test Item Value Reference Range Interpretation Comments WHITE BLOOD CELL COUNT (BEAKER) 14.9 K/ L 3.5-10.5 H (test code = 775) RED BLOOD CELL COUNT (BEAKER) 4.37 M/ L 3.93-5.22 (test code = 761) HEMOGLOBIN (BEAKER) (test code = 12.3 GM/DL 11.2-15.7 410) HEMATOCRIT (BEAKER) (test code = 38.3 % 34.1-44.9 411) MEAN CORPUSCULAR VOLUME (BEAKER) 87.6 fL 79.4-94.8 (test code = 753) MEAN CORPUSCULAR HEMOGLOBIN 28.1 pg 25.6-32.2 (BEAKER) (test code = 751) MEAN CORPUSCULAR HEMOGLOBIN CONC 32.1 GM/DL 32.2-35.5 L (BEAKER) (test code = 752) RED CELL DISTRIBUTION WIDTH 13.8 % 11.7-14.4 (BEAKER) (test code = 412) PLATELET COUNT (BEAKER) (test 433 K/CU MM 150-450 code = 756) MEAN PLATELET VOLUME (BEAKER) 9.0 fL 9.4-12.3 L (test code = 754) NUCLEATED RED BLOOD CELLS 0 /100 WBC 0-0 (BEAKER) (test code = 413) NEUTROPHILS RELATIVE PERCENT 71 % (BEAKER) (test code = 429) LYMPHOCYTES RELATIVE PERCENT 21 % (BEAKER) (test code = 430) MONOCYTES RELATIVE PERCENT 6 % (BEAKER) (test code = 431) EOSINOPHILS RELATIVE PERCENT 1 % (BEAKER) (test code = 432) BASOPHILS RELATIVE PERCENT 0 % (BEAKER) (test code = 437) NEUTROPHILS ABSOLUTE COUNT 10.60 K/ L 1.56-6.13 H (BEAKER) (test code = 670) LYMPHOCYTES ABSOLUTE COUNT 3.12 K/ L 1.18-3.74 (BEAKER) (test code = 414) MONOCYTES ABSOLUTE COUNT (BEAKER) 0.91 K/ L 0.24-0.36 H (test code = 415) EOSINOPHILS ABSOLUTE COUNT 0.19 K/ L 0.04-0.36 (BEAKER) (test code = 416) BASOPHILS ABSOLUTE COUNT (BEAKER) 0.03 K/ L 0.01-0.08 (test code = 417) IMMATURE GRANULOCYTES-RELATIVE 0 % 0-1 PERCENT (BEAKER) (test code = 2801) RAD, CHEST, 1 VIEW, NON [id number] 22:44:00Reason for exam:->preopShould this be performed at the bedside?->Yes [facility]ADA : 1960 Sex: FFINAL REPORT RAD, CHEST, 1 VIEW, NON DEPT TECHNIQUE: Frontal view of the chest. INDICATION: preop. COMPARISON: 04/27/2019 FINDINGS/IMPRESSION: Lines/Tubes: Unchanged dual-lead pacemaker leads Lungs/pleura: Streaky left basal opacities, likely scarring or atelectasis. Lungs are hypoinflated but otherwise clear. Questionable trace left pleural effusion or pleural parenchymal scarring. No pneumothorax. Heart and Mediastinum: No definite cardiomegaly. Soft Tissues and Bones: Mild reversal Sshaped curvature of the thoracolumbar spine. No acute osseous abnormality. Signed: Sita Roberson Verified Date/Time: 03/13/2020 22:44:48 Reading Location: [address] Transitional Reading Room El ectronically signed by: SITA ROBERSON MD on 03/13/2020 10:44 PMPOTASSIUM 2020-03-13 17:01:00 Test Item Value Reference Range Interpretation Comments POTASSIUM (BEAKER) (test code = 3.8 meq/L 3.5-5.1 379) Global Marketing Operations Manager ID - BSPOCT-GLUCOSE [id number] 16:46:00 Test Item Value Reference Range Interpretation Comments POC-GLUCOSE METER 174 mg/dL 70-110 H : [facility] (test code = [place], 1538) [address]: Global Marketing Operations Manager/Techni john ID = [id number] for FO NTENOT, [place] CT, BRAIN, WITHOUT [id number] 13:51:00Unlisted Reason for Exam - Click Yes and Enter Reason Below->No [facility] CHRISSI[facility]STRADA : 1960 Sex: FFINAL REPORT CT, BRAIN, WITHOUT CONTRAST INDICATION: Subdural hematoma TECHNIQUE: Noncontrast axial imaging was obtained from the vertex to the skull base. Axial images were reconstructed using a bone algorithm. DOSE REDUCTION: Dose modulation, iterative reconstruction, and/or weight-based adjustment of the mA/kV was utilized to reduce the radiation dose to as low as reasonably achievable. COMPARISON: CT 02/29/2020 FINDINGS: Intracranial: Evolution of subdural hematoma along the right convexity which is now subacute and slightly decreased in size, currently up to 9 mm in maximum thickness. Similar extension along the right tentorial leaflet and falx. Persistent 9 mm leftward midline sh ift. No new site of hemorrhage. No evidence of acute territorial infarct. No hydrocephalus. Osseous structures: No fracture. No suspicious lesion. Paranasal sinuses and mastoid air cells: No evidence of sinusitis. Mastoids are clear. Orbital contents: Globes are intact. IMPRESSION: Expected evolution of right convexity subdural hematoma with similar extension along the right tentorial leaflet and falx. 9 mm leftward midline shift. Signed: Meeta Mendozaeport Verified Date/Time: 03/13/2020 13:51:30 BASI METABOLIC [id number] 11:17:00 Test Item Value Reference Range Interpretation Comments SODIUM (BEAKER) 137 meq/L 136-145 (test code = 381) POTASSIUM (BEAKER) 2.9 meq/L 3.5-5.1 L (test code = 379) CHLORIDE (BEAKER) 100 meq/L 98-107 (test code = 382) CO2 (BEAKER) (test 28 meq/L 22-29 code = 355) BLOOD UREA NITROGEN 6 mg/dL 7-21 L (BEAKER) (test code = 354) CREATININE (BEAKER) 0.64 mg/dL 0.57-1.25 (test code = 358) GLUCOSE RANDOM 184 mg/dL 70-105 H (BEAKER) (test code = 652) CALCIUM (BEAKER) 8.4 mg/dL 8.4-10.2 (test code = 697) EGFR (BEAKER) (test 96 mL/min/1.73 ESTIMA MAGDA GFR IS code = 1092) sq m NOT ACCURATE CREATININE CLEARANCE IN PREDICTING GLOMERULAR FILTRATION RATE . ESTIMATED GFR I S NOT APPLICABLE FOR DIALYSIS PATIEN TS. Global Marketing Operations Manager ID - EDASIEEG AWAKE AND [id number] 10:35:00Reason for exam:- >SeizuresShould this be performed at the bedside?->Yes [facility] : 1960 Sex: FNEUROPHYSIOLOGY EEG REPORT DATES OF TEST: 03/13/20 DATE OF REPORT: 03/13/20 Name: Chrissie Estrada Start time: 08:13 Stop time: 08:35 ACC: [id number] EEG Number: [id number] CPT: 13774 ICD10: R56.9 TECHNICAL SUMMARY: This is a digital video-EEG recorded with 32 input channels reviewed with bipolar and referential montages using the modified combinatorial system nomenclature. DESCRIPTION OF RECORD: When m aximally awake, the posterior dominant rhythm is 11 Hz and it is bilaterally symmetric, well regulated and well sustained. Low voltage faster beta frequencies are present in bilateral anterior head regions. During drowsiness, posterior dominant rhythm attenuates and there is an increase in fronto-central theta and incipient vertex waves. Sleep patterns were not observed. HV: Hyperventilation was not performed. PHOTIC STIMULATION: Photic stimulation was performed using 1-30 Hz flash frequencies. It did not elicit abnormal waveforms or responses. IMPRESSION: Normal EEG in wakefulness and drowsiness CLINICAL CORRELATION: There was no focal or lateralizing features, no epileptiform activity or electrographic or electro-clinical seizures. Normal EEG does not rule out a diagnosis of epilepsy. If clinically indicated, consider additional EEG recordings. Angie Tesfaye MD, PhD Epilepsy Attending COMPREHENSIVE METABOLIC [id number] 08:26:00 Test Item Value Reference Range Interpretation Comments TOTAL PROTEIN 6.9 gm/dL 6.0-8.3 (BEAKER) (test code = 770) ALBUMIN (BEAKER) 3.7 g/dL 3.5-5.0 (test code = 1145) ALKALINE PHOSPHATASE 136 U/L 40-150 (BEAKER) (test code = 346) BILIRUBIN TOTAL 0.4 mg/dL 0.2-1.2 (BEAKER) (test code = 377) SODIUM (BEAKER) (test 138 meq/L 136-145 code = 381) POTASSIUM (BEAKER) 2.6 meq/L 3.5-5.1 LL (test code = 379) CHLORIDE (BEAKER) 100 meq/L 98-107 (test code = 382) CO2 (BEAKER) (test 25 meq/L 22-29 code = 355) BLOOD UREA NITROGEN 6 mg/dL 7-21 L (BEAKER) (test code = 354) CREATININE (BEAKER) 0.66 mg/dL 0.57-1.25 (test code = 358) GLUCOSE RANDOM 179 mg/dL 70-105 H (BEAKER) (test code = 652) CALCIUM (BEAKER) 8.7 mg/dL 8.4-10.2 (test code = 697) AST (SGOT) (BEAKER) 12 U/L 5-34 (test code = 353) ALT (SGPT) (BEAKER) 13 U/L 6-55 (test code = 347) EGFR (BEAKER) (test 92 mL/min/1.73 ESTIMA MAGDA GFR IS code = 1092) sq m NOT ACCURATE CREATININE CLEARANCE IN PREDICTING GLOMERULAR FILTRATION RATE . ESTIMATED GFR I S NOT APPLICABLE FOR DIALYSIS PATIEN TS. Global Marketing Operations Manager ID - EDASICBC W/PLT COUNT & AUTO [id number] 07:06:00 Test Item Value Reference Range Interpretation Comments WHITE BLOOD CELL COUNT (BEAKER) 15.4 K/ L 3.5-10.5 H (test code = 775) RED BLOOD CELL COUNT (BEAKER) 4.56 M/ L 3.93-5.22 (test code = 761) HEMOGLOBIN (BEAKER) (test code = 13.2 GM/DL 11.2-15.7 410) HEMATOCRIT (BEAKER) (test code = 39.1 % 34.1-44.9 411) MEAN CORPUSCULAR VOLUME (BEAKER) 85.7 fL 79.4-94.8 (test code = 753) MEAN CORPUSCULAR HEMOGLOBIN 28.9 pg 25.6-32.2 (BEAKER) (test code = 751) MEAN CORPUSCULAR HEMOGLOBIN CONC 33.8 GM/DL 32.2-35.5 (BEAKER) (test code = 752) RED CELL DISTRIBUTION WIDTH 13.6 % 11.7-14.4 (BEAKER) (test code = 412) PLATELET COUNT (BEAKER) (test 452 K/CU MM 150-450 H code = 756) MEAN PLATELET VOLUME (BEAKER) 9.0 fL 9.4-12.3 L (test code = 754) NUCLEATED RED BLOOD CELLS 0 /100 WBC 0-0 (BEAKER) (test code = 413) NEUTROPHILS RELATIVE PERCENT 68 % (BEAKER) (test code = 429) LYMPHOCYTES RELATIVE PERCENT 25 % (BEAKER) (test code = 430) MONOCYTES RELATIVE PERCENT 6 % (BEAKER) (test code = 431) EOSINOPHILS RELATIVE PERCENT 1 % (BEAKER) (test code = 432) BASOPHILS RELATIVE PERCENT 0 % (BEAKER) (test code = 437) NEUTROPHILS ABSOLUTE COUNT 10.42 K/ L 1.56-6.13 H (BEAKER) (test code = 670) LYMPHOCYTES ABSOLUTE COUNT 3.76 K/ L 1.18-3.74 H (BEAKER) (test code = 414) MONOCYTES ABSOLUTE COUNT (BEAKER) 0.94 K/ L 0.24-0.36 H (test code = 415) EOSINOPHILS ABSOLUTE COUNT 0.14 K/ L 0.04-0.36 (BEAKER) (test code = 416) BASOPHILS ABSOLUTE COUNT (BEAKER) 0.05 K/ L 0.01-0.08 (test code = 417) IMMATURE GRANULOCYTES-RELATIVE 0 % 0-1 PERCENT (BEAKER) (test code = 2801) PROTHROMBIN [id number] 06:46:00 Test Item Value Reference Range Interpretation Comments PROTIME (BEAKER) (test code = 13.6 seconds 11.9-14.2 759) INR (BEAKER) (test code = 370) 1.07 <=5.90 Effective 10/10/2018: PT Reference Range ChangeNew: 11.9-14.2 Previous: 11.7- 14.7RECOMMENDED COUMADIN/WARFARIN INR THERAPY RANGESSTANDARD DOSE: 2.0-3.0 Includes: PROPHYLAXIS for venous thrombosis, systemic embolization; TREATMENT for venous thrombosis and/or pulmonary embolus.HIGH RISK: Target INR is 2.5-3.5 for patients wiht mechanical heart valves.POCT-GLUCOSE [id number] 09:05:00 Test Item Value Reference Range Interpretation Comments POC-GLUCOSE METER 162 mg/dL 70-110 H : TESTED A T [facility] 6720 (BEAKER) (test code = [place], 1538) [address]: Global Marketing Operations Manager/Techni john ID = [id number] for JENNY GAUTHIER HEMOGLOBIN [id number] 07:40:00 Test Item Value Reference Range Interpretation Comments HEMOGLOBIN A1C (BEAKER) (test code = 8.2 % 4.3-6.1 H 368) CBC W/PLT COUNT & AUTO [id number] 06:14:00 Test Item Value Reference Range Interpretation [...] 0-1 PERCENT (BEAKER) (test code = 2801) TROPONIN [id number] 06:12:00 Test Item Value Reference Range Interpretation [...] failure, acidosis, acute neurological disease, and persistent tachyarrhythmia.Global Marketing Operations Manager ID - EDASIPOCT-GLUCOSE METER 2020-02-29 21:55:00 Test Item Value Reference Range Interpretation Comments POC-GLUCOSE METER 173 mg/dL 70-110 H : TESTED A T [facility] 6720 (BEAKER) (test code = ELMO [place], 1538) 250[address]: Global Marketing Operations Manager/Techni john ID = [id number] for DE NNIS, DANO POCT-GLUCOSE [id number] 18:13:00 Test Item Value Reference Range Interpretation Comments POC-GLUCOSE METER 211 mg/dL 70-110 H : TESTED A T [facility] 6720 ([facility]) (test code = ELMO Miranda [facility], 153) [address]: Global Marketing Operations Manager/Techni john ID = [id number] for FL DANTES, JASS POCT-GLUCOSE [id number] 11:38:00 Test Item Value Reference Range Interpretation Comments POC-GLUCOSE METER 139 mg/dL 70-110 H : Notified RN/MD: (YOON) (test code = TESTED AT [facility] 6720 1538) GET [facility], [address]: Global Marketing Operations Manager/Techni john ID = [id number] for SHELTON BAUER POCT-GLUCOSE [id number] 08:50:00 Test Item Value Reference Range Interpretation Comments POC-GLUCOSE METER 178 mg/dL 70-110 H : TESTED A T [facility] 6720 ([facility]) (test code = [facility] Ruth [facility], 1538) 58[address]: Global Marketing Operations Manager/Techni john ID = [id number] for FL ORES, JASS CT, BRAIN, WITHOUT [id number] 06:57:00Unlisted Reason for Exam - Click Yes and Enter Reason Below->No [facility]: WANDA CHRISSIE M : 1960 Sex: FFINAL REPORT CT, BRAIN, [...] previously described right hemispheric subdural hematoma are unchanged.There is contouring of the underlying brain parenchyma over the right hemisphere without visible edema. No herniation has developed. Bowing of the septum pellucidum is present, however there is no ventr icular entrapment. The anna-white distinction is preserved. Osseous structures are intact. IMPRESSION: Grossly stable intracranial appearance when compared to February 28, 2020 Signed: JR Goldman Robert MDReport Verified Date/Time: 02/29/2020 06:57:51 Reading Location: [facility] C013V Neuro ReadingRoom REHENSIVE METABOLIC [id number] 06:05:00 Test Item Value Reference Range Interpretation [...] 347) EGFR (BEAKER) (test 92 mL/min/1.73 ESTIMA MAGDA GFR IS code = 1092) sq m NOT ACCURATE CREATININE CLEARANCE IN PREDICTING GLOMERULAR FILTRATION RATE . ESTIMATED GFR I S NOT APPLICABLE FOR DIALYSIS PATIEN TS. Global Marketing Operations Manager ID - EDASICBC W/PLT COUNT & AUTO [id number] 05:51:00 Test Item Value Reference Range Interpretation [...] 0-1 PERCENT (BEAKER) (test code = 2801) [id number] 22:48:00 Test Item Value Reference Range Interpretation Comments POTASSIUM (BEAKER) (test code = 3.9 meq/L 3.5-5.1 379) Global Marketing Operations Manager ID - DBPOCT-GLUCOSE [id number] 17:00:00 Test Item Value Reference Range Interpretation Comments POC-GLUCOSE METER 175 mg/dL 70-110 H : Notified RN/MD: (BEAKER) (test code = TESTED AT [facility] 6720 1538) [facility], [address]: Global Marketing Operations Manager/Techni john ID = [id number] for Esperanza Monreal [id number] 15:18:00 Test Item Value Reference Range Interpretation Comments MAGNESIUM (BEAKER) 2.2 mg/dL 1.6-2.6 Specimen slightly (test code = 627) hemolyzed Global Marketing Operations Manager ID - [id number] 15:18:00 Test Item Value Reference Range Interpretation Comments POTASSIUM (BEAKER) 3.4 meq/L 3.5-5.1 L Specimen slightly (test code = 379) hemolyzed Global Marketing Operations Manager ID - EDASISARS-COV2/RT-PCR ([facility])2020-02-28 13:06:00 Test Item Value Reference Range Interpretation Comments SARS-COV2/RT-PCR (test Negative Not Detected, Negative, code = 4297932) See external report for linked test SARS-COV-2 PERFORMING LAB [facility] CARRI (test code = 3147447) Negative result for this test determines that [...] individuals suspected of COVID-19 by their healthcare provider.This test [...] justifying the authorization of the emergency use ofin vitro diagnostic tests for detection and/or diagnosis of COVID-19 is terminated under Section 564(b)(2) of the Act or the EUA is revoked under Section 564(g) of the Act.Fact Sheet for Healthcare Prov iders:https://www.[employer]/sites/default/files/product/documents/Fact_Sheet_HC _Qorsadtfk_Jznd_SCCH-OxS-5.pdfFact Sheet for Healthcare Patients:https://www.[employer]/sites/default/files/product/docume nts/Jbxz_Gfoke_Mdllnemx_Btrs_ZPFG-RxD-3.pdfPerforming Laboratory:[place] [address], [place] [address]TDCY-IUWOBLC METER 2020-02-28 07:38:00 Test Item Value Reference Range Interpretation Comments POC-GLUCOSE METER 150 mg/dL 70-110 H : TESTED A T [facility] 6720 ([facility]) (test code = ELMO Miranda [facility], 1538) 99[address]: Global Marketing Operations Manager/Techni john ID = [id number] for Esperanza Monreal COMPREHENSIVE METABOLIC [id number] 06:52:00 Test Item Value Reference Range Interpretation [...] 347) EGFR (BEAKER) (test 88 mL/min/1.73 ESTIMA MAGDA GFR IS code = 1092) sq m NOT ACCURATE CREATININE CLEARANCE IN PREDICTING GLOMERULAR FILTRATION RATE . ESTIMATED GFR I S NOT APPLICABLE FOR DIALYSIS PATIEN TS. Global Marketing Operations Manager ID - EDASIOnce on admission and Daily AM [id number] 06:52:00 Test Item Value Reference Range Interpretation Comments MAGNESIUM (BEAKER) (test code = 1.8 mg/dL 1.6-2.6 627) Global Marketing Operations Manager ID - EDASIOnce on admission and Daily AM [id number] 06:52:00 Test Item Value Reference Range Interpretation Comments PHOSPHORUS (BEAKER) (test code = 3.2 mg/dL 2.3-4.7 604) Global Marketing Operations Manager ID - EDASIOnce on admission and Daily AM afterwardsTROPONIN [id number] 06:32:00 Test Item Value Reference Range Interpretation [...] failure, acidosis, acute neurological disease, and persistent tachyarrhythmia.Global Marketing Operations Manager ID - EDASICBC W/PLT COUNT & AUTO [id number] 06:17:00 Test Item Value Reference Range Interpretation [...] PERCENT (BEAKER) (test code = 2801) POCT-GLUCOSE [id number] 02:43:00 Test Item Value Reference Range Interpretation Comments POC-GLUCOSE METER 275 mg/dL 70-110 H : TESTED A T [facility] 6720 (BEAKER) (test code = [place], 1538) [address]: Global Marketing Operations Manager/Techni john ID = [id number] for LAN KIMBLE CT, BRAIN, WITHOUT [id number] 02:27:00Unlisted Reason for Exam - Click Yes and Enter Reason Below->No [facility]ame: CHRISSIE ESTRADA : 1960 Sex: FFINAL REPORT CT Head without contrast CLINICAL HISTORY: Intracranial hemorrhage, followup TECHNIQUE: Contiguous axial images through the head without contrast. This exam was performed according to the departmental dose optimization program which includes automated exposure control, adjustment of the mA and/or kV according to the patient size, and/or use of an iterative reconstruction technique. COMPARISON: None FINDINGS:Subdural hematoma along the [...] with chronic microvascular ischemic change. There are atherosclerotic calcifications of the intracranial circulation. No evidence of hydrocephalus.There is no CT evidence of acute infarct. Basilar cisterns are patent. The skull is intact. The visualized paranasal sinuses are well-aerated. Intraorbital contents are unremarkable. IMPRESSION: Subdural hematoma along the right cerebral convexity with mass effect on adjacent structures including the right lateral ventricle salting and 9 mmof leftward midline shift. Thin subdural hematoma along the right falx and tentorial leaflet. Signed: [facility] Verified Date/Time: 02/28/2020 02:27:59 [facility] [id number] 23:28:00 Test Item Value Reference Range Interpretation [...] 347) EGFR (BEAKER) (test 83 mL/min/1.73 ESTIMA MAGDA GFR IS code = 1092) sq m NOT ACCURATE CREATININE CLEARANCE IN PREDICTING GLOMERULAR FILTRATION RATE . ESTIMATED GFR I S NOT APPLICABLE FOR DIALYSIS PATIEN TS. Global Marketing Operations Manager ID Ayan VALDES LHEPATIC FUNCTION [id number] 23:28:00 Test Item Value Reference Range Interpretation [...] (test code = 16 U/L 6-55 347) Global Marketing Operations Manager ID - LUCIO [id number] 23:21:00 Test Item Value Reference Range Interpretation Comments FIBRINOGEN LEVEL (BEAKER) (test 413 mg/dl 225-434 code = 658) [id number] 23:21:00 Test Item Value Reference Range Interpretation Comments PARTIAL THROMBOPLASTIN TIME 26.2 seconds 22.5-36.0 (BEAKER) (test code = 760) PROTHROMBIN TIME/[id number] 23:20:00 Test Item Value Reference Range Interpretation [...] is 2.5-3.5 for patients wiht mechanical heart valves.CBC W/PLT COUNT & AUTO [id number] 23:15:00 Test Item Value Reference Range Interpretation [...] 0-1 PERCENT (BEAKER) (test code = 2801) CBC W/AUTO [id number] 00:00:00 Test Item Value Reference Range Interpretation Comments WBC (test code = 1001) 11.6 K/UL RBC (test code = 1002) 4.77 M/UL HEMOGLOBIN (test code = 1003) 13.7 G/DL HEMATOCRIT (test code = 1004) 40.3 % MCV (test code = 1005) 84.5 fL MCH (test code = 1006) 28.7 PG MCHC (test code = 1007) 34.0 G/DL RDW (test code = 1038) 13.3 % NEUTROPHILS (test code = 1008) 63.0 % LYMPHOCYTES (test code = 1010) 28.1 % MONOCYTES (test code = 1011) 6.7 % EOSINOPHILS (test code = 1012) 1.9 % BASOPHILS (test code = 1013) 0.3 % PLATELET COUNT (test code = 1015) 383 K/UL CBC W/AUTO [id number] 00:00:00 Test Item Value Reference Range Interpretation Comments WBC (test code = 1001) 11.6 K/UL RBC (test code = 1002) 4.77 M/UL HEMOGLOBIN (test code = 1003) 13.7 G/DL HEMATOCRIT (test code = 1004) 40.3 % MCV (test code = 1005) 84.5 fL MCH (test code = 1006) 28.7 PG MCHC (test code = 1007) 34.0 G/DL RDW (test code = 1038) 13.3 % NEUTROPHILS (test code = 1008) 63.0 % LYMPHOCYTES (test code = 1010) 28.1 % MONOCYTES (test code = 1011) 6.7 % EOSINOPHILS (test code = 1012) 1.9 % BASOPHILS (test code = 1013) 0.3 % PLATELET COUNT (test code = 1015) 383 K/UL COMPREHENSIVE METABOLIC [id number] 00:00:00 Test Item Value Reference Range Interpretation Comments GLUCOSE (test code = 2217) 198 MG/DL BUN (test code = 2208) 8 MG/DL CREATININE (test code = 2214) 0.69 MG/DL eGFR AMER. (test code 112 ML/MIN/1.73 = 09766) eGFR NON- AMER. (test 97 ML/MIN/1.73 code = 11543) CALC BUN/CREAT (test code = 12 RATIO 2235) SODIUM (test code = 2231) 138 MEQ/L POTASSIUM (test code = 2228) 3.8 MEQ/L CHLORIDE (test code = 2215) 100 MEQ/L CARBON DIOXIDE (test code = 27 MEQ/L 2205) CALCIUM (test code = 2209) 9.3 MG/DL PROTEIN, TOTAL (test code = 7.4 G/DL 2228) ALBUMIN (test code = 2201) 4.5 G/DL CALC GLOBULIN (test code = 2.9 G/DL 2239) CALC A/G RATIO (test code = 1.6 RATIO 2233) BILIRUBIN, TOTAL (test code = 0.3 MG/DL 2206) ALKALINE PHOSPHATASE (test 142 U/L code = 2204) AST (test code = 2218) 15 U/L ALT (test code = 2219) 19 U/L LIPID [id number] 00:00:00 Test Item Value Reference Range Interpretation Comments CHOLESTEROL (test code = 2210) 131 MG/DL TRIGLYCERIDES (test code = 2232) 225 MG/DL HDL CHOLESTEROL (test code = 2220) 41 MG/DL CALC LDL CHOL (test code = 2237) 62 MG/DL RISK RATIO LDL/HDL (test code = 1.51 RATIO 2238) HEMOGLOBIN [id number] 00:00:00 Test Item Value Reference Range Interpretation Comments HEMOGLOBIN A1c (test code = 31617) 8.4 % HEMOGLOBIN [id number] 00:00:00 Test Item Value Reference Range Interpretation Comments HEMOGLOBIN A1c (test code = 03517) 8.4 % [id number] 00:00:00 Test Item Value Reference Range Interpretation Comments TSH, THIRD GENERATION (test code 1.280 UIU/ML = 2821) [id number] 00:00:00 Test Item Value Reference Range Interpretation Comments TSH, THIRD GENERATION (test code 1.280 UIU/ML = 2821) ISLET CELL AB [id number] 07:43:00 Test Item Value Reference Range Interpretation Comments ISLET CELL AB Refer to individual AUTOVERIFICATION (test Islet Cell Ab code = 2556) and/or Islet Cell Ab Titer results. POCT-GLUCOSE [id number] 12:34:00 Test Item Value Reference Range Interpretation Comments POC-GLUCOSE METER 208 mg/dL 70-110 H : TESTED A T [facility] 6720 (BEAKER) (test code = ELMO Miranda [place], 1538) [address]: Global Marketing Operations Manager/Techni john ID = [id number] for BRINANAOMY Guy SANTANA POCT-GLUCOSE [id number] 08:26:00 Test Item Value Reference Range Interpretation Comments POC-GLUCOSE METER 145 mg/dL 70-110 H : TESTED A T [facility] 6720 (BEAKER) (test code = HANNAVT Ruth [place], 1538) [address]: Global Marketing Operations Manager/Techni john ID = [id number] for HILARY ALBARRAN [id number] 06:31:00 Test Item Value Reference Range Interpretation Comments MAGNESIUM (BEAKER) (test code = 1.6 mg/dL 1.6-2.6 627) BUN AND [id number] 06:31:00 Test Item Value Reference Range Interpretation [...] APPLICABLE FOR DIALYSIS PATIEN TS. BASIC METABOLIC [id number] 06:31:00 Test Item Value Reference Range Interpretation [...] APPLICABLE FOR DIALYSIS PATIEN TS. CBC (HEMOGRAM ONLY)2019-04-28 05:33:00 Test Item Value [...] 0-0 (BEAKER) (test code = 413) POCT-GLUCOSE [id number] 22:02:00 Test Item Value Reference Range Interpretation Comments POC-GLUCOSE METER 214 mg/dL 70-110 H : TESTED Pattie T [facility] 6720 (BEAKER) (test code = [place], 1538) [address]: Global Marketing Operations Manager/Techni john ID = [id number] for KAREN TEIXEIRA POCT-GLUCOSE [id number] 17:34:00 Test Item Value Reference Range Interpretation Comments POC-GLUCOSE METER 178 mg/dL 70-110 H : TESTED A T [facility] 6720 (BEAKER) (test code = HANNANE Ruth [facility], 1538) [address]: Global Marketing Operations Manager/Techni john ID = [id number] for Guy MORRIS POCT-GLUCOSE [id number] 17:33:00 Test Item Value Reference Range Interpretation Comments POC-GLUCOSE METER 222 mg/dL 70-110 H : TESTED A T [facility] 6720 (BEAKER) (test code = HANNANE R [facility], 1538) [address]: Global Marketing Operations Manager/Techni john ID = [id number] for SRIKANTH FIGUEROA POCT-GLUCOSE [id number] 08:07:00 Test Item Value Reference Range Interpretation Comments POC-GLUCOSE METER 174 mg/dL 70-110 H : TESTED A T [facility] 6720 (BEAKER) (test code = ELMO Miranda [facility], 1538) [address]: Global Marketing Operations Manager/Techni john ID = [id number] for SRIKANTH FIGUEROA RAD, CHEST, 1 VIEW, NON [id number] 08:04:00Reason for exam:->CIED ImplantationIs the patient ?->UnknownShould [...] MDReport Verified Date/Time: 04/27/2019 08:04:20 Reading Location: [facility] C0[facility] Neuro Reading Room [id number] 06:48:00 Test Item Value Reference Range Interpretation Comments MAGNESIUM (BEAKER) (test code = 1.7 mg/dL 1.6-2.6 627) BUN AND [id number] 06:48:00 Test Item Value Reference Range Interpretation Comments BLOOD UREA NITROGEN 11 mg/dL 7-21 (BEAKER) (test code = 354) CREATININE (BEAKER) 0.67 mg/dL 0.57-1.25 (test code = 358) EGFR (BEAKER) (test 91 mL/min/1.73 ESTIMA MAGDA GFR IS code = 1092) sq m NOT ACCURATE CREATININE CLEARANCE IN PREDICTING GLOMERULAR FILTRATION RATE . ESTIMATED GFR I S NOT APPLICABLE FOR DIALYSIS PATIEN TS. BASIC METABOLIC [id number] 06:48:00 Test Item Value Reference Range Interpretation [...] 697) EGFR (BEAKER) (test 91 mL/min/1.73 ESTIMA MAGDA GFR IS code = 1092) sq m [...] code = 756) MEAN PLATELET VOLUME (BEAKER) 10.3 fL 9.4-12.3 (test code = 754) NUCLEATED RED BLOOD CELLS 0 /100 WBC 0-0 (BEAKER) (test code = 413) POCT-GLUCOSE [id number] 21:23:00 Test Item Value Reference Range Interpretation Comments POC-GLUCOSE METER 209 mg/dL 70-110 H : TESTED A T [facility] 6720 (BEAKER) (test code = ELMO Miranda [facility], 1538) [address]: Global Marketing Operations Manager/Techni john ID = [id number] for KAREN TEIXEIRA POCT-GLUCOSE [id number] 18:13:00 Test Item Value Reference Range Interpretation Comments POC-GLUCOSE METER 280 mg/dL 70-110 H : TESTED A T [facility] 6720 (BEAKER) (test code [facility], = 1538) [address]: Global Marketing Operations Manager/Techni john ID = [id number] for GEOFF SEVERINO RAD, CHEST, 1 VIEW, NON [id number] 14:36:00Reason for exam:->CIED ImplantationShould this be performed at the bedside?->YesFINAL REPORT INDICATION: CIED Implantation COMPARISON: None TECHNIQUE: Single fr ontal view of the chest. FINDINGS: Lungs and pleura: Lungs are hypoinflated. No effusion.Heart and mediastinum: Normal heart size. Unremarkable mediastinal contours.Osseous structures: No acute abnormality.Other: Pacer device. IMPRESSION: No pneumothorax Signed: Rowena Lay Verified Date/Time: 04/26/2019 14:36:47 Reading Location: [facility] Radiology Reading Room -GLUCOSE [id number] 10:40:00 Test Item Value Reference Range Interpretation Comments POC-GLUCOSE METER 204 mg/dL 70-110 H : TESTED A T [facility] 6720 (BEAKER) (test code = [place], 1538) 11[address]: Global Marketing Operations Manager/Techni john ID = [id number] for JOURDAN ESCALANTE [id number] 04:42:00 Test Item Value Reference Range Interpretation Comments MAGNESIUM (BEAKER) (test code = 1.8 mg/dL 1.6-2.6 627) BASIC METABOLIC [id number] 04:42:00 Test Item Value Reference Range Interpretation [...] 697) EGFR (BEAKER) (test 92 mL/min/1.73 ESTIMA MAGDA GFR IS code = 1092) sq m [...] (BEAKER) (test code = 412) PLATELET COUNT ([facility]) (test 330 K/CU MM 150-450 code = 756) MEAN PLATELET VOLUME (BEAKER) 10.2 fL 9.4-12.3 (test code = 754) NUCLEATED RED BLOOD CELLS 0 /100 WBC 0-0 (BEAKER) (test code = 413) POCT-GLUCOSE [id number] 21:56:00 Test Item Value Reference Range Interpretation Comments POC-GLUCOSE METER 381 mg/dL 70-110 H : Notified RN/MD: ([facility]) (test code = TESTED AT [place] [address] 1538) [facility], [address]: Global Marketing Operations Manager/Techni john ID = [id number] for SONIA MAHER TROPONIN [id number] 17:20:00 Test Item Value Reference Range Interpretation Comments TROPONIN I ([facility]) (test code = 0.12 ng/mL 0.00-0.03 [...] acidosis, acute neurological disease, and persistent tachyarrhythmia.POCT-GLUCOSE [id number] 11:55:00 Test Item Value Reference Range Interpretation Comments POC-GLUCOSE METER 163 mg/dL 70-110 H : TESTED A T [facility] 6720 ([facility]) (test code = [facility] Ruth [facility], 1538) [address]: Global Marketing Operations Manager/Techni john ID = [id number] for TIM CARRANZATELMA CREATINE KINASE (CK)2019-04-25 11:26:00 Test Item Value Reference Range Interpretation Comments CREATINE KINASE TOTAL ([facility]) (test 63 U/L 29-200 code = 380) TROPONIN [id number] 10:05:00 Test Item Value Reference Range Interpretation [...] acidosis, acute neurological disease, and persistent tachyarrhythmia.POCT-GLUCOSE [id number] 08:18:00 Test Item Value Reference Range Interpretation Comments POC-GLUCOSE METER 163 mg/dL 70-110 H : [facility] ([facility]ER[facility] (test code = [place], 1538) [address]: Global Marketing Operations Manager/Techni john ID = [id number] for MO TELMA CARRANZA TROPONIN [id number] 06:47:00 Test Item Value Reference Range Interpretation Comments TROPONIN I (BEAKER) (test code = 0.23 ng/mL 0.00-0.03 HH [...] failure, acidosis, acute neurological disease, and persistent tachyarrhythmia.[id number] 06:41:00 Test Item Value Reference Range Interpretation Comments MAGNESIUM (BEAKER) 2.4 mg/dL 1.6-2.6 Specimen slightly (test code = 627) hemolyzed BASIC METABOLIC [id number] 06:41:00 Test Item Value Reference Range Interpretation [...] NOT APPLICABLE FOR DIALYSIS PATIEN TS. LIPID [id number] 06:41:00 Test Item Value Reference Range Interpretation Comments TRIGLYCERIDES (BEAKER) 117 mg/dL Speci men slightly (test code = 540) hemolyzed CHOLESTEROL (BEAKER) 122 mg/dL Specime n slightly (test code = 631) hemolyzed HDL CHOLESTEROL (BEAKER) 36 mg/dL (test code = 976) LDL CHOLESTEROL 63 mg/dL CALCULATED (BEAKER) (test code = 633) Triglyceride Reference Range: Low Risk <150 Borderline 150-199 High Risk 200- 499 Very High Risk >=500Cholesterol Reference Range: Low Risk <200 Borderline 200-239 High Risk >240HDL Cholesterol Reference Range: Low Risk >=60 High Risk <40LDL Cholesterol Reference Range: Optimal <100 Near Optimal 100-129 Borderline 130-159 High 160-189 Very High >=190APTT 2019-04-25 06:07:00 Test Item Value Reference Range Interpretation [...] = 413) RAD, CHEST, 1 VIEW, NON [id number] 01:00:00Reason for exam:->transvenous PM placementShould this be performed at the bedside?->YesFINAL REPORT RAD, CHEST, 1 VIEW, NON DEPT INDICATION: transvenous PM placement C OMPARISON: None available FINDINGS: Portable frontal view of the chest. IMPRESSION: Support Lines: Right IJ transvenous pacer device with lead overlying the right ventricle. Lungs and pleura: Bibasilaratelectasis. Mild interstitial pulmonary edema pulmonary vascular congestion. Small left pleural effusion. No pneumothorax.Heart and mediastinum: Within normal limits. Additional findings: None available. Signed: Lucy Cameron MDReport Verified Date/Time: 04/25/2019 01:00:56 TROPONIOmero [id number] 23:56:00 Test Item Value Reference Range Interpretation [...] failure, acidosis, acute neurological disease, and persistent tachyarrhythmia.[id number] 23:47:00 Test Item Value Reference Range Interpretation Comments MAGNESIUM (BEAKER) 1.6 mg/dL 1.6-2.6 Specimen slightly (test code = 627) hemolyzed [id number] 23:47:00 Test Item Value Reference Range Interpretation Comments PHOSPHORUS (BEAKER) 3.2 mg/dL 2.3-4.7 Specimen slightly (test code = 604) hemolyzed COMPREHENSIVE METABOLIC [id number] 23:47:00 Test Item Value Reference Range Interpretation [...] hemolyzed EGFR (BEAKER) (test 88 mL/min/1.73 ESTIMA MAGDA GFR IS code = 1092) sq m NOT ACCURATE CREATININE CLEARANCE IN PREDICTING GLOMERULAR FILTRATION RATE . ESTIMATED GFR I S NOT APPLICABLE FOR DIALYSIS PATIEN TS. [id number] 23:41:00 Test Item Value Reference Range Interpretation [...] is 2.5-3.5 for patients wiht mechanical heart valves.Prior to initiating heparinPrior to initiating [id number] 23:41:00 Test Item Value Reference Range Interpretation Comments PARTIAL THROMBOPLASTIN TIME 31.1 seconds 22.5-36.0 (BEAKER) (test code = 760) LACTIC ACID, [id number] 23:41:00 Test Item Value Reference Range Interpretation Comments LACTATE BLOOD VENOUS 1.1 mmol/L 0.5-2.2 Specime n slightly (2) (BEAKER) (test hemolyzed code = 2872) PLATELET [id number] 23:31:00 Test Item Value Reference Range Interpretation Comments PLATELET COUNT (BEAKER) (test 348 K/CU MM 150-450 code = 756) POCT-GLUCOSE [id number] 23:27:00 Test Item Value Reference Range Interpretation Comments POC-GLUCOSE METER 244 mg/dL 70-110 H : TESTED A T [facility] 6720 ([employer] (test code = [place], 1538) [address]: Global Marketing Operations Manager/Techni john ID = [id number] for MARQUITA AGUILERA [id number] 18:39:00 Test Item Value Reference Range Interpretation Comments ACTIVATED CLOTTING TIME 301 sec Refe rence Range: 74-137 (BEAKER) (test code = second s, 441) Baseline/TESTED AT [address] [address] [id number] 18:04:00 Test Item Value Reference Range Interpretation Comments ACTIVATED CLOTTING TIME 252 sec Refe rence Range: 74-137 (BEAKER) (test code = second s, 441) Baseline/TESTED AT [address] [address] [id number] 17:49:00 Test Item Value Reference Range Interpretation Comments ACTIVATED CLOTTING TIME 235 sec Refe rence Range: 74-137 (BEAKER) (test code = second s, 441) Baseline/TESTED AT [address] [address] POCT-GLUCOSE [id number] 13:18:00 Test Item Value Reference Range Interpretation Comments POC-GLUCOSE METER 187 mg/dL 70-110 H : TESTED A T [facility] 6720 (BEAKER) (test code = [facility], 1538) 75237: Global Marketing Operations Manager/Techni john ID = [id number] for OR ANANDA FERRARA [id number] 12:52:00 Test Item Value Reference Range Interpretation Comments PARTIAL THROMBOPLASTIN TIME 42.7 seconds 22.5-36.0 H (BEAKER) (test code = 760) POCT-GLUCOSE [id number] 09:59:00 Test Item Value Reference Range Interpretation Comments POC-GLUCOSE METER 252 mg/dL 70-110 H : TESTED A T [facility] 6720 (BEAKER) (test code = [facility], 1538) 10214: Global Marketing Operations Manager/Techni john ID = [id number] for OR ANANDA FERRARA HEMOGLOBIN [id number] 08:35:00 Test Item Value Reference Range Interpretation Comments HEMOGLOBIN A1C (BEAKER) (test code = 11.5 % 4.3-6.1 H 368) [id number] 06:09:00 Test Item Value Reference Range Interpretation Comments PARTIAL THROMBOPLASTIN TIME 39.5 seconds 22.5-36.0 H (BEAKER) (test code = 760) BASIC METABOLIC [id number] 23:24:00 Test Item Value Reference Range Interpretation [...] 697) EGFR (BEAKER) (test 82 mL/min/1.73 ESTIMA MAGDA GFR IS code = 1092) sq m NOT ACCURATE CREATININE CLEARANCE IN PREDICTING GLOMERULAR FILTRATION RATE . ESTIMATED GFR I S NOT APPLICABLE FOR DIALYSIS PATIEN TS. [id number] 23:15:00 Test Item Value Reference Range Interpretation Comments PARTIAL THROMBOPLASTIN TIME 28.7 seconds 22.5-36.0 (BEAKER) (test code = 760) Prior to initiating heparinPROTHROMBIN TIME/[id number] 23:14:00 Test Item Value Reference Range Interpretation [...] is 2.5-3.5 for patients wiht mechanical heart valves.Prior to initiating heparinAPTT 2019-04-23 23:14:00 Test Item Value Reference Range Interpretation Comments PARTIAL THROMBOPLASTIN TIME 28.6 seconds 22.5-36.0 (BEAKER) (test code = 760) 6 hours after starting heparin infusion and as indicated [facility] & AUTO [id number] 23:10:00 Test Item Value Reference Range Interpretation [...] PERCENT (BEAKER) (test code = 2801) POCT-GLUCOSE [id number] 22:59:00 Test Item Value Reference Range Interpretation Comments POC-GLUCOSE METER 194 mg/dL 70-110 H : TESTED A T [facility] 6720 (BEAKER) (test code = [facility], 1538) 19135: Global Marketing Operations Manager/Techni john ID = [id number] for Mary Kate Mccoy
[2022-02-05 06:14] LABS: Absolute Lymphocytes (CBC) 2.2 K/uL (0.7-4.9); Hematocrit 34.7 % (36.0-45.0); Lymphocytes % 23.3 % (15.3-44.8); MCV 81.3 fL (80-100); MPV 7.3 fL (7.6-11.3); RBC Red Blood Cell Count 4.26 M/uL (3.86-4.86)
[2022-02-05] MEDS ORDERED: MECLIZINE HCL 12.5 MG TAB ONE (06:17)
[2022-02-05] MEDS ORDERED: MIDAZOLAM HCL 2 MG/2 ML INJ ONE (06:23)
[2022-02-05 06:39] LABS: Troponin High Sensitivity 8.2 pg/mL (<58.9)
[2022-02-05 06:42] LABS: Potassium 2.7 mmol/L (3.5-5.1)
--- NOTE | 2022-02-05 07:35 | RAD REPORT ---
EXAM DESCRIPTION: CT - Head Brain Wo Cont - 02/05/2022 6:44 am CLINICAL HISTORY: Dizziness Headache, drowsiness, nausea COMPARISON: Head Brain Wo Cont dated 03/13/2020; Head Brain Wo Cont dated 02/27/2020 TECHNIQUE: All CT scans are performed using dose optimization technique as appropriate and may inclu de automated exposure control or mA/KV adjustment according to patient size. FINDINGS: No intracranial hemorrhage, hydrocephalus or extra-axial fluid collection.No areas of brai n edema or evidence of midline shift. The paranasal sinuses and mastoids are clear. Right-sided craniotomy. IMPRESSION: No acute intracranial abnormality.
--- NOTE | 2022-02-05 08:08 | ER ---
Nurse's Notes [facility] Name: Blanca Estrada Age: 61 yrs Sex: Female : 1960 Arrival Date: 02/05/2022 Time: 05:37 Bed 19 Private MD: Diagnosis: Dizziness;Essential (primary) hypertension;Flushing Presentation: 02/05 05:50 Chief complaint: Patient states: nausea and dizziness when getting up to use restroom lg3 states" i feel like my blood is fire running through my body. im hot and flushed.". Coronavirus screen: Client denies travel out of the [place] in the last 14 days. At this time, the client does not indicate any symptoms associated with coronavirus-19. Ebola Screen: No symptoms or risks identified at this time. Initial Sepsis Screen: Does the patient meet any 2 criteria? No. Patient's initial sepsis screen is negative. Does the patient have a suspected source of infection? No. Patient's initial sepsis screen is negative. Risk Assessment: Do you want to hurt yourself or someone else? Patient reports no desire to harm self or others. Onset of symptoms was February 05, 2022. 05:50 Method Of Arrival: EMS: [facility] lg3 05:50 Acuity: WILMAR 3 lg3 Triage Assessment: 05:53 General: Appears in no apparent distress. comfortable, Behavior is calm, cooperative. lg3 Pain: Denies pain. EENT: No deficits noted. No signs and/or symptoms were reported regarding the EENT system. Neuro: No deficits noted. Level of Consciousness is awake, alert, obeys commands, Oriented to person, place, time, situation. Cardiovascular: No deficits noted. Denies chest pain, shortness of breath, Capillary refill < 3 seconds Clubbing of nail beds is absent JVD is absent Patient's skin is warm and dry. Respiratory: No deficits noted. Airway is patent Trachea midline Respiratory effort is even, unlabored, Respiratory pattern is regular, symmetrical, Breath sounds are clear bilaterally. Denies cough, shortness of breath labored breathing. GI: No signs and/or symptoms were reported involving the gastrointestinal system. Abdomen is round distended, Abd is soft X 4 quads Abdomen is tender to palpation. : No deficits noted. No signs and/or symptoms were reported regarding the genitourinary system. Derm: No deficits noted. No signs and/or symptoms reported regarding the dermatologic system. Skin is intact, is healthy with good turgor, Skin is dry, Skin is normal, Skin temperature is warm. Musculoskeletal: Circulation, motion, and sensation intact. Range of motion: intact in all extremities, Parent/caregiver report the patient having generalized weakness and dizziness. Historical: - Allergies: 05:53 No Known Allergies; lg3 - Home Meds: 05:53 aspirin 81 mg Oral chew 1 tab once daily [Active]; lisinopril 40 mg Oral tab 1 tab once lg3 daily [Active]; pantoprazole 40 mg Oral TbEC 1 tab once daily [Active]; carvedilol 25 mg oral tab 1 tab 2 times per day [Active]; atorvastatin 80 mg Oral tab 1 tab once daily [Active]; hydralazine 100 mg Oral tab 1 tab 3 times per day [Active]; levemir 3ML nightly [Active]; - PMHx: 05:53 CAD; Clots in the past; CVA; Diabetes - IDDM; Hyperlipidemia; Hypertension; Myocardial lg3 infarction; - PSHx: 05:53 Stented artery; brain; pacemaker; lg3 - Immunization history:: Adult Immunizations up to date, Client reports receiving the 2nd dose of the Covid vaccine. - Social history:: Smoking status: Patient reports the use of cigarette tobacco products, smokes two packs cigarettes per day. Patient/guardian denies using alcohol, street drugs. Screenin:58 Abuse screen: Denies threats or abuse. Denies injuries from another. Nutritional lg3 screening: No deficits noted. Tuberculosis screening: No symptoms or risk factors identified. Fall Risk None identified. Assessment: 05:58 General: see triage assessment . lg3 08:20 General: Patient refusing covid swab. mb8 19:40 General: Appears uncomfortable, Behavior is uncooperative. Pain: Denies pain. Neuro: ha1 Level of Consciousness is awake, alert, Oriented to person, place, time, situation, Speech is normal. Respiratory: Airway is patent Trachea midline Respiratory effort is even, unlabored, Respiratory pattern is regular, symmetrical. 19:40 General: pt. reports wanting to leave and does not want to get treatment. pt. removed ha1 IV by herself. IV site was wrapped with coban to stop bleeding.. Vital Signs: 05:50 BP 147 / 57; Pulse 70; Resp 15 S; Temp 97.5(O); Pulse Ox 95% on R/A; Weight 77.11 kg lg3 (R); Height 5 ft. 8 in. (172.72 cm) (R); Pain 0/10; 08:29 BP 178 / 83; Pulse 74; Resp 16; Pulse Ox 98% ; Pain 0/10; mb8 19:40 BP 132 / 52; Pulse 69; Resp 20 S; Pulse Ox 98% on R/A; ha1 05:50 Body Mass Index 25.85 (77.11 kg, 172.72 cm) lg3 ED Course: 05:37 Patient arrived in ED. mw2 05:40 Sandra Little, RN is Primary Nurse. lg3 05:41 Chino Espinoza DO is Attending Physician. ms3 05:53 Triage completed. lg3 05:53 Arm band placed on right wrist. lg3 05:58 Patient has correct armband on for positive identification. Placed in gown. Bed in low lg3 position. Call light in reach. Side rails up X 1. Client placed on continuous cardiac and pulse oximetry monitoring. NIBP monitoring applied. monitoring and evaluation advisor on. Door closed. Noise minimized. Warm blanket given. Family accompanied patient. 05:58 Maintain EMS IV. Dressing intact. Good blood return noted. Site clean \\T\\ dry. Gauge \\T\\ lg 3 site: 22 Right Forearm. 06:05 Basic Metabolic Panel Sent. lg3 06:05 CBC with Diff Sent. lg3 06:05 Troponin HS Sent. lg3 06:42 Notified ED physician of a critical lab result(s). K 2.7. ke1 06:46 CT Head Brain wo Cont In Process Unspecified. EDMS 08:08 Dao Esquivel MD is Hospitalizing Provider. ms3 08:12 XRAY Chest (1 view) In Process Unspecified. EDMS 08:19 Primary Nurse role handed off by Sandra Little, EMMIE eb 08:30 No provider procedures requiring assistance completed. mb8 19:46 Noelle Cooper, EMMIE is Primary Nurse. ha1 Administered Medications: 06:15 Drug: Meclizine 50 mg Route: PO; lg3 06:15 Drug: Midazolam 2 mg Route: IVP; Site: right forearm; lg3 07:29 Drug: Potassium Chloride 40 mEq Route: PO; mb8 Outcome: 08:08 Decision to Hospitalize by Provider. ms3 19:53 Patient left the ED. Signatures: Dispatcher [employer] EDMS aCdence Crump, RN RN Madelaine RuizEden mw2 Thalia Velazquez Lacie, RN RN lg3 Chino Espinoza DO DO ms3 Willie Rios RN RN 1 Noelle Cooper RN RN 1 Sky Agudelo RN RN mb8
--- NOTE | 2022-02-05 08:08 | EDPHYS ---
Physician Documentation [facility] [place], [place] Name: Blanca Estrada Age: 61 yrs Sex: Female : 1960 Arrival Date: 02/05/2022 Time: 05:37 Bed 19 Private MD: ED Physician Chino Espinoza HPI: 02/05 06:05 This 61 yrs old Female presents to ER via EMS with complaints of body flushing and ms3 dizziness. 06:05 61-year-old female with past medical history of coronary artery disease, CVA, diabetes, ms3 hyperlipidemia, hypertension, subdural hematoma presents for feeling flushed and becoming dizzy 4 hours prior to arrival. Patient denies pain at this time. Patient states her symptoms have improved. Patient states movement makes her dizziness worse. Patient denies alleviating factors.. Historical: - Allergies: 05:53 No Known Allergies; lg3 - Home Meds: 05:53 aspirin 81 mg Oral chew 1 tab once daily [Active]; lisinopril 40 mg Oral tab 1 tab once lg3 daily [Active]; pantoprazole 40 mg Oral TbEC 1 tab once daily [Active]; carvedilol 25 mg oral tab 1 tab 2 times per day [Active]; atorvastatin 80 mg Oral tab 1 tab once daily [Active]; hydralazine 100 mg Oral tab 1 tab 3 times per day [Active]; levemir 3ML nightly [Active]; - PMHx: 05:53 CAD; Clots in the past; CVA; Diabetes - IDDM; Hyperlipidemia; Hypertension; Myocardial lg3 infarction; - PSHx: 05:53 Stented artery; brain; pacemaker; lg3 - Immunization history:: Adult Immunizations up to date, Client reports receiving the 2nd dose of the Covid vaccine. - Social history:: Smoking status: Patient reports the use of cigarette tobacco products, smokes two packs cigarettes per day. Patient/guardian denies using alcohol, street drugs. ROS: 06:05 Constitutional: Negative for fever, and chills. ENT: Negative for injury, pain, and ms3 discharge, Neck: Negative for injury, pain, and swelling, Cardiovascular: Negative for chest pain, and palpitations. Respiratory: Negative for shortness of breath, cough, wheezing, and pleuritic chest pain, Abdomen/GI: Negative for abdominal pain, nausea, vomiting, diarrhea, and constipation, MS/Extremity: Negative for injury and deformity. 06:05 Neuro: Positive for dizziness. 06:05 All other systems are negative. Exam: 06:05 Constitutional: This is a well developed, well nourished patient who is awake, alert, ms3 and in no acute distress. Head/Face: Normocephalic, atraumatic. Neck: Trachea midline, no cervical lymphadenopathy. Supple, full range of motion without nuchal rigidity, or vertebral point tenderness. No Meningismus. Chest/axilla: Normal chest wall appearance and motion. Nontender with no deformity. Cardiovascular: Regular rate and rhythm with a normal S1 and S2. No gallops, murmurs, or rubs. Normal PMI, no JVD. No pulse deficits. Respiratory: Lungs have equal breath sounds bilaterally, clear to auscultation and percussion. No rales, rhonchi or wheezes noted. No increased work of breathing, no retractions or nasal flaring. Abdomen/GI: Soft, non-tender, with normal bowel sounds. No distension or tympany. No guarding or rebound. No evidence of tenderness throughout. Skin: Warm, dry with normal turgor. Normal color with no rashes, no lesions, and no evidence of cellulitis. MS/ Extremity: Pulses equal, no cyanosis. Neurovascular intact. Full, normal range of motion. Psych: Awake, alert, with orientation to person, place and time. Behavior, mood, and affect are within normal limits. Vital Signs: 05:50 BP 147 / 57; Pulse 70; Resp 15 S; Temp 97.5(O); Pulse Ox 95% on R/A; Weight 77.11 kg lg3 (R); Height 5 ft. 8 in. (172.72 cm) (R); Pain 0/10; 08:29 BP 178 / 83; Pulse 74; Resp 16; Pulse Ox 98% ; Pain 0/10; mb8 19:40 BP 132 / 52; Pulse 69; Resp 20 S; Pulse Ox 98% on R/A; ha1 05:50 Body Mass Index 25.85 (77.11 kg, 172.72 cm) 3 MDM: 05:56 Patient medically screened. ms3 08:09 Data reviewed: vital signs, nurses notes, lab test result(s), EKG, radiologic studies, ms3 and as a result, I will admit patient. Data interpreted:. Counseling: I had a detailed discussion with the patient and/or guardian regarding: the historical points, exam findings, and any diagnostic results supporting the discharge/admit diagnosis, lab results, radiology results, the need for further work-up and treatment in the hospital, to return to the emergency department if symptoms worsen or persist or if there are any questions or concerns that arise at home. ED course: Discussed need for observation with patient and she understands/ agrees with plan. All questions answered.. 02/05 05:56 Order name: Basic Metabolic Panel; Complete Time: 07:36 ms3 02/05 05:56 Order name: CBC with Diff; Complete Time: 07:36 ms3 02/05 05:56 Order name: Troponin HS; Complete Time: 07:36 ms3 02/05 08:09 Order name: SARS RAPID ms3 02/05 08:29 Order name: Troponin High Sensitivity; Complete Time: 19:51 EDMS 02/05 08:29 Order name: CBC with Automated Diff EDMS 02/05 08:29 Order name: CBC with Automated Diff EDMS 02/05 08:31 Order name: Basic Metabolic Panel EDMS 02/05 08:31 Order name: Cortisol EDMS 02/05 08:31 Order name: Folic Acid, (Folate) EDMS 02/05 08:31 Order name: Iron EDMS 02/05 08:31 Order name: Lipid Profile EDMS 02/05 05:56 Order name: XRAY Chest (1 view); Complete Time: 19:51 ms3 02/05 05:56 Order name: EKG; Complete Time: 05:57 ms3 02/05 05:56 Order name: CT Head Brain wo Cont; Complete Time: 07:36 ms3 02/05 08:29 Order name: Heart Healthy EDMS 02/05 08:31 Order name: T4 Free EDMS 02/05 08:31 Order name: Thyroid Stimulating Hormone EDMS 02/05 08:31 Order name: Troponin High Sensitivity EDMS 02/05 08:31 Order name: Vitamin B12 Level EDMS 02/05 08:31 Order name: Comprehensive Metabolic Panel; Complete Time: 19:51 EDMS 02/05 08:31 Order name: Magnesium; Complete Time: 19:51 EDMS 02/05 08:31 Order name: NT PRO-BNP; Complete Time: 19:51 EDMS 02/05 08:31 Order name: Phosphorus; Complete Time: 19:51 EDMS 02/05 08:32 Order name: Carotid Artery Bilateral; Complete Time: 19:51 EDMS 02/05 05:56 Order name: Cardiac monitoring; Complete Time: 06:00 ms3 02/05 05:56 Order name: EKG - Nurse/Tech; Complete Time: 07:29 ms3 02/05 05:56 Order name: IV Saline Lock; Complete Time: 06:00 ms3 02/05 05:56 Order name: Labs collected and sent; Complete Time: 06:05 ms3 02/05 05:56 Order name: O2 Per Protocol; Complete Time: 06:00 ms3 02/05 05:56 Order name: O2 Sat Monitoring; Complete Time: 06:00 ms3 Administered Medications: 06:15 Drug: Meclizine 50 mg Route: PO; lg3 06:15 Drug: Midazolam 2 mg Route: IVP; Site: right forearm; lg3 07:29 Drug: Potassium Chloride 40 mEq Route: PO; mb8 Disposition Summary: 02/05/22 08:08 Hospitalization Ordered Hospitalization Status: Observation ms3 Provider: Dao Esquivel ms3 Condition: Stable ms3 Problem: new ms3 Symptoms: are unchanged ms3 Bed/Room Type: Standard ms3 Location: [facility] ER HOLD(02/05/22 17:08) eb Room Assignment: ERHOLD-(02/05/22 17:08) eb Diagnosis - Dizziness ms3 - Essential (primary) hypertension ms3 - Flushing ms3 Forms: - Medication Reconciliation Form ms3 - SBAR form ms3 Signatures: Dispatcher [employer] EDMS Thalia Velazquez eb Sandra Little RN RN lg3 Chino Espinoza DO DO ms3 Sky Agudelo RN RN mb8 Haydee Ghosh PA-C PAAyanC sb4 Corrections: (The following items were deleted from the chart) 08:30 08:29 Comprehensive Metabolic Panel ordered. EDMS EDMS 08:30 08:29 Comprehensive Metabolic Panel ordered. EDMS EDMS 17:08 08:08 Telemetry/MedSurg (observation) ms3 eb 17:08 08:08 ms3 eb
[2022-02-05] MEDS ORDERED: ACETAMINOPHEN 500 MG TAB PO PRN (08:25)
[2022-02-05] MEDS ORDERED: ONDANSETRON 4 MG/2 ML VIAL IV PRN (08:25)
[2022-02-05] MEDS ORDERED: NA CHLORIDE 0.9% 1,000 ML IV SCH (09:00)
[2022-02-05 09:04] VITALS: BMI 25.8
[2022-02-05] MEDS ORDERED: NA CHLORIDE 0.9% 1,000 ML ONE (09:17)
--- NOTE | 2022-02-05 09:48 | RAD REPORT ---
EXAM DESCRIPTION: RAD - Chest Single View - 02/05/2022 8:10 am CLINICAL HISTORY: dizziness Chest pain. COMPARISON: Chest Single View dated 02/27/2020; Chest Pa And Lat (2 Views) dated 05/11/2019; Chest S gloria View dated 04/30/2019; Chest Single View dated 04/20/2019 FINDINGS: Portable technique limits examination quality. Mild interstitial pulmonary edema is seen. The heart is moderately enlarged in size with dual lead pa cer device. No displaced fractures.Moderate scoliosis of the thoracic spine. IMPRESSION: Mild CHF.
--- NOTE | 2022-02-05 11:29 | RAD REPORT ---
EXAM DESCRIPTION: - CP - 02/05/2022 11:15 am CLINICAL HISTORY: syncope Headache, drowsiness, syncope COMPARISON: Head C Spine Mpr Wo Con dated 04/22/2017 TECHNIQUE: Real-time sonographic evaluation of both carotid systems was performed. Doppler interroga tion was performed with waveform tracing bilaterally. FINDINGS: Normal high resistance waveforms are noted in both external carotid arteries. The common c arotid arteries and internal carotid arteries show normal low resistance waveforms. Moderate hard plaque is seen involving the right carotid bulb and proximal right ICA. Elevated peak s ystolic velocity measurement is noted maximally 242 cm/second. Visually, stenosis estimated at 70% ba sed on NASCET criteria. Left carotid bulb and proximal internal carotid artery demonstrates mild to moderate plaquing. Peak s ystolic velocity measurement is 203 cm/second. Visually, stenosis estimated at 50-70% based on NASCET criteria. Antegrade flow seen in both vertebral arteries. IMPRESSION: Bilateral carotid stenosis is suspected as detailed, slightly greater on the right. Recommend MRA or CTA for further detailed assessment.
[2022-02-05 12:44] LABS: Albumin 3.3 g/dL (3.4-5.0); Bilirubin Total 0.4 mg/dL (0.2-1.0); Phosphorus 2.5 mg/dL (2.5-4.9); Protein, Total 7.1 g/dL (6.4-8.2)
[2022-02-05] MEDS ORDERED: POTASSIUM 25 MEQ EFFERV TAB PO ONE (14:45)
--- NOTE | 2022-02-05 14:47 | P.HP ---
Certification for Inpatient Patient admitted to: Observation With expected LOS: <2 Midnights Patient will require the following post-hospital care: None Practitioner: I am a practitioner with admitting privileges, knowledge of patient current condition, hospital course, and medical plan of care. Services: Services provided to patient in accordance with Admission requirements found in Title 42 Section 412.3 of the Code of Federal Regulations Patient History Date of Service: 02/05/22 Reason for admission: Hypokalemia; weakness History of Present Illness: Patient is a 61-year-old female who came to the hospital after becoming diaphoretic wall urinating. She was having episodes of lightheadedness. She came to the emergency room and her workup has been unremarkable. Her initial troponins are negative. Her potassium was low and so we have supplemented this. We are going to observe her for overnight. Plan was to restart her home medications. This was done by my nurse practitioner. However patient left against medical advice in the evening. Allergies No Known Allergies Allergy (Unverified 04/22/17 23:42) Home Medications: Aspirin Chewable [Aspirin Chewable*] 81 mg PO DAILY 02/05/22 Atorvastatin Calcium [Lipitor] 80 mg PO DAILY 02/05/22 Carvedilol [Coreg] 25 mg PO BID 02/05/22 Hydralazine HCl 100 mg PO TID 02/05/22 Lisinopril [Zestril] 40 mg PO DAILY 02/05/22 Pantoprazole [Protonix Tab*] 40 mg PO DAILY 02/05/22 - Past Medical/Surgical History Has patient received pneumonia vaccine in the past: Yes Diabetic: No -: DVT -: CAD -: Tobacco abuse -: back surgery - Family History Father Family History: Reviewed- Non-Contributory - Social History Smoking Status: Current every day smoker Alcohol use: No CD- Drugs: No Review of Systems 10-point ROS is otherwise unremarkable Physical Examination - Vital Signs Temperature: 98 F Blood Pressure: 165/75 Pulse: 75 Respirations: 16 Pulse Ox (%): 99 - Physical Exam General: Alert, In no apparent distress, Oriented x3 HEENT: Atraumatic, PERRLA, Mucous membr. moist/pink, EOMI, Sclerae nonicteric Neck: Supple, 2+ carotid pulse no bruit, No LAD, Without JVD or thyroid abnormality Respiratory: Clear to auscultation bilaterally, Normal air movement Cardiovascular: Regular rate/rhythm, Normal S1 S2 Gastrointestinal: Normal bowel sounds, No tenderness Musculoskeletal: No tenderness Integumentary: No rashes Neurological: Normal gait, Normal speech, Normal strength at 5/5 x4 extr, Normal tone, Normal affect Lymphatics: No axilla or inguinal lymphadenopathy - Studies Laboratory Data (last 24 hrs) 02/05/22 06:04: WBC 9.40, Hgb 12.0, Hct 34.7 L, Plt Count 287 02/05/22 06:04: Sodium 139, Potassium 2.7 L*, BUN 6 L, Creatinine 0.73, Glucose 205 H Assessment & Plan - Problems (Diagnosis) (1) Hypokalemia Status: Acute (2) Vagal reaction Status: Acute (3) Chest pain, rule out acute myocardial infarction Status: Acute (4) Tobacco abuse Status: Acute - Plan Plan: 1. Correct potassium 2. Check cortisol, renin, aldosterone level 3. Gently hydrate 4. Hold diuretics 5. Monitor for diarrhea 6. Resume home meds Discharge Plan: Home Plan to discharge in: 24 Hours - Advance Directives Does patient have a Living Will: No Does patient have a Durable POA for Healthcare: No - Code Status/Comfort Care Code Status Assessed: Yes Code Status: Full Code Critical Care: No Time Spent Managing PTS Care (In Minutes): 45 Home Medications: Aspirin Chewable [Aspirin Chewable*] 81 mg PO DAILY 02/05/22 Atorvastatin Calcium [Lipitor] 80 mg PO DAILY 02/05/22 Carvedilol [Coreg] 25 mg PO BID 02/05/22 Hydralazine HCl 100 mg PO TID 02/05/22 Lisinopril [Zestril] 40 mg PO DAILY 02/05/22 Pantoprazole [Protonix Tab*] 40 mg PO DAILY 02/05/22 Diet: AHA Activity: Fall precautions Time spent managing pt's care (in minutes): 45 ( patient left against medical advice)
[2022-02-05] MEDS ORDERED: POTASSIUM 25 MEQ EFFERV TAB ONE (15:03)
[2022-02-05] MEDS ORDERED: HYDRALAZINE HCL 25 MG TABLET PO SCH (19:41)
[2022-02-05] MEDS ORDERED: carvediloL 6.25 MG TAB PO SCH (19:41)
[2022-02-06] MEDS ORDERED: ATORVASTATIN 80 MG TAB PO SCH (19:41)
[2022-02-06] MEDS ORDERED: ASPIRIN 81 MG CHEWABLE TABLET PO SCH (19:41)
[2022-02-06] MEDS ORDERED: PANTOPRAZOLE 40MG TABLET PO SCH (19:41)
[2022-02-06] MEDS ORDERED: lisinopriL 20 MG TAB PO SCH (19:41)
[2022-02-07 05:56] VITALS: TEMP 97.5
[2022-02-07 06:00] VITALS: O2SAT 98
[2022-02-07 06:02] VITALS: BP 132/52
== END 2022-02-05 20:00 | disposition left against medical advice (07) ==
LOC: ER 05:30 → ERHOLD 08:25
PROVIDERS: ADMIT Hospitalist; ATTEND Hospitalist
DX: E87.6 Hypokalemia (principal); R07.9 Chest pain, unspecified; I25.10 Atherosclerotic heart disease of native coronary artery without angina pectoris; I82.409 Acute embolism and thrombosis of unspecified deep veins of unspecified lower extremity; F17.210 Nicotine dependence, cigarettes, uncomplicated; Z53.29 Procedure and treatment not carried out because of patient's decision for other reasons
CPT/HCPCS: 85025; 80048; 36415; 83735; 84100; 84484 ×2; 80053; 83880; 70450; 71045; 93880; 96374; 99284; J8597; J2250; J7030; G0378 ×2

== ENCOUNTER 2022-05-04 18:15 | Inpatient (IN) | payer OTHER ==
--- OUTSIDE RECORDS SUMMARY | 2022-05-04 18:32 | XMS REPORT | Continuity of Care Document ---
:1960 Author Organization [facility] t Address [address] [place] [address] Care Team Providers Name Role Phone Doreen Galarza Primary Care Physician [phone] JESUS ALBERTO SOLIS I. Attending Clinician Unavailable SITA SAMPSON Attending Clinician Unavailable ROSANNA RODRIGUEZ Attending Clinician Unavailable GILES MCDONALD Attending Clinician Unavailable JESUS ALBERTO SOLIS I. Admitting Clinician Unavailable SITA SAMPSON Admitting Clinician Unavailable SWEETIE BURCIAGA Admitting Clinician Unavailable CAMMY DAVIS Admitting Clinician Unavailable Payers Payer Name Policy Type Policy Number Effective Date Expiration Date S balbina [employer] REVIEW [id number] 2020 00:00:00 Problems Condition Condition Condition Status [...] hemorrhage 0-15 Jodie kes 00:00: Medical 00 [place] Hypertensi Hypertensi Disease Active 2018-[address] on on 06-25 [facility] 00:00: Medical [place] Hyperlipid Hyperlipid Disease Active 2018-[address] [facility] 2[facility] [place] Disease Active 2018-[address] [facility] [address] (ventricul (ventricul 2-11 Jodie kes ar ar 00:00: Medical tachycardi tachycardi 00 Ce nter a) a) Heart Heart Disease Active 2018-[address] [facility] [address] block block 2- [facility] Leukocytos Leukocytos Disease Active 2018-[address] [facility] is 2 [facility] Uncontroll Uncontroll Disease Active 2018-[address] ed ed 2 [facility] diabetes diabetes 00:00: Medica l mellitus mellitus 00 Center with with hyperglyce hyperglyce braxton braxton CAD CAD Disease Active 2018-[address] [facility] [address] (coronary (coronary 2-10 [facility] s artery artery 00:00: Medical disease) disease) 00 Center Allergies, Adverse Reactions, Alerts Allergy Allergy Status Severity Reaction(s) Onset Inactive Treating Comm ents Source Name Type Date Date Clinician Mesna - Propensi Active 0 Intraven ty to 6-24 ous adverse 00:00: [...] Tobacco use and 2019-04-23 2019-04-23 Current user MARGARET Nunez exposure 00:00:00 00:00:00 [facility] Sex Assigned At [birth year] [facility] [address] Jodie alfaro 00:00:00 00:00:00 [facility] Smoking Status Start Date Stop Date Source Current every day smoker 2019-04-23 00:00:00 [facility] Medications Ordered Filled Start Stop Current Ordering Indication Dosage Frequency Signature Comments Components Source Medication Medication Date Date Medication? Clinician (SIG) Name Name CARVEDILOL 2021-1 No 25 MG TABS - 00:00: 00 CARVEDILOL 2-1 No 25 MG TABS 05-18 00:00: 00 CARVEDILOL 2-1 No 25 MG TABS 04 00:00: 00 Dose 2022-0 No Unknown 9-27 00:00: 00 Dose 2022-0 No Unknown 9-27 00:00: 00 Dose 2022-0 No Unknown 9-27 00:00: 00 Dose 2022-0 No Unknown 9-27 00:00: 00 Dose 2022-0 No Unknown 9-27 00:00: 00 Dose 2022-0 No Unknown 8-09 00:00: 00 Dose 2022-0 No Unknown 8-09 00:00: 00 Dose 2022-0 No Unknown 8-09 00:00: 00 Dose 2022-0 No Unknown 8-09 00:00: 00 Dose 2022-0 No Unknown 8-09 00:00: 00 TAKE 1 2022-0 No 100 TABLET 8-03 EVERY 8 00:00: HOURS. 00 TAKE 1 2022-0 No 80 TABLET 8-03 DAILY. 00:00: 00 Dose 2022-0 No Unknown 8-03 00:00: 00 TAKE 1 2022-0 No 100 TABLET 8-03 EVERY 8 00:00: HOURS. 00 TAKE 1 2022-0 No 100 TABLET 8-03 EVERY 8 00:00: HOURS. 00 TAKE 1 2022-0 No 80 TABLET 8-03 DAILY. 00:00: 00 Dose 2022-0 No Unknown 8-03 00:00: 00 TAKE 1 2022-0 No 100 TABLET 8-03 EVERY 8 00:00: HOURS. 00 TAKE 1 2022-0 No 100 TABLET 8-03 EVERY 8 00:00: HOURS. 00 TAKE 1 2022-0 No 80 TABLET 8-03 DAILY. 00:00: 00 Dose 2022-0 No Unknown 8-03 00:00: 00 TAKE 1 2022-0 No 100 TABLET 8-03 EVERY 8 00:00: HOURS. 00 TAKE 1 2022-0 No 100 TABLET 8-03 EVERY 8 00:00: HOURS. 00 TAKE 1 2022-0 No 80 TABLET 8-03 DAILY. 00:00: 00 Dose 2022-0 No Unknown 8-03 00:00: 00 TAKE 1 2022-0 No 100 TABLET 8-03 EVERY 8 00:00: HOURS. 00 TAKE 1 2022-0 No 100 TABLET 8-03 EVERY 8 00:00: HOURS. 00 TAKE 1 2022-0 No 80 TABLET 8-03 DAILY. 00:00: 00 Dose 2022-0 No Unknown 8-03 00:00: 00 TAKE 1 2022-0 No 100 TABLET 8-03 EVERY 8 00:00: HOURS. 00 Dose 2022-0 No Unknown 8- 00:00: 00 Dose 2022-0 No Unknown 8- 00:00: 00 Dose 2022-0 No Unknown 8- 00:00: 00 Dose 2022-0 No Unknown 8- 00:00: 00 Dose 2022-0 No Unknown 8- 00:00: 00 Dose 2022-0 No Unknown 7- 00:00: 00 TAKE 1 2-0 No 80 TABLET 7- DAILY. 00:00: 00 Dose 2022-0 No Unknown 7- 00:00: 00 TAKE 1 2022-0 No 80 TABLET 7- DAILY. 00:00: 00 Dose 2022-0 No Unknown 7- 00:00: 00 TAKE 1 2022-0 No 80 TABLET 7-31 DAILY. 00:00: 00 Dose 2022-0 No Unknown 7- 00:00: 00 TAKE 1 2022-0 No 80 TABLET 7- DAILY. 00:00: 00 Dose 2022-0 No Unknown 7- 00:00: 00 TAKE 1 2022-0 No 80 TABLET 7- DAILY. 00:00: 00 buspirone 5 2-0 No 1mg mg tablet 7 00:00: 00 Dose 2022-0 No Unknown 7- 00:00: 00 buspirone 5 2-0 No 1mg mg tablet 7 00:00: 00 Dose 2-0 No Unknown 12-10 00:00: 00 buspirone 5 2-0 No 1mg mg tablet 12-10 00:00: 00 Dose 2022-0 No Unknown 12-10 00:00: 00 buspirone 5 2-0 No 1mg mg tablet 12-10 00:00: 00 Dose 2022-0 No Unknown 12-10 00:00: 00 buspirone 5 2-0 No 1mg mg tablet 12-10 00:00: 00 Dose 2022-0 No Unknown 12-10 00:00: 00 Dose 2022-0 No Unknown 12-09 00:00: 00 TAKE 2 2022-0 No 20 TABLETS X 1 7-28 TODAY. THEN 00:00: 1 TABLET 00 DAILY X 5 DAYS TAKE 1 2022-0 No 80 TABLET 7-28 DAILY. 00:00: 00 TAKE 1 2022-0 No 100 TABLET 7-28 EVERY 8 00:00: HOURS. 00 TAKE 1 2022-0 No [id number] TABLET 7-28 TWICE DAILY 00:00: WITH FOOD. 00 Dose 2-0 No Unknown 7 00:00: 00 TAKE 2 2022-0 No 20 TABLETS X 1 7-28 TODAY. THEN 00:00: 1 TABLET 00 DAILY X 5 DAYS TAKE 1 2022-0 No 80 TABLET 7-28 DAILY. 00:00: 00 TAKE 1 2022-0 No 100 TABLET 7-28 EVERY 8 00:00: HOURS. 00 TAKE 1 2022-0 No [id number] TABLET 7-28 TWICE DAILY 00:00: WITH FOOD. 00 Dose 2022-0 No Unknown 7 00:00: 00 TAKE 2 2022-0 No 20 TABLETS X 1 7-28 TODAY. THEN 00:00: 1 TABLET 00 DAILY X 5 DAYS TAKE 1 2022-0 No 80 TABLET 7-28 DAILY. 00:00: 00 TAKE 1 2022-0 No 100 TABLET 7-28 EVERY 8 00:00: HOURS. 00 TAKE 1 2022-0 No [id number] TABLET 7-28 TWICE DAILY 00:00: WITH FOOD. 00 Dose 2022-0 No Unknown 728 00:00: 00 TAKE 2 2022-0 No 20 TABLETS X 1 7-28 TODAY. THEN 00:00: 1 TABLET 00 DAILY X 5 DAYS TAKE 1 2022-0 No 80 TABLET 7-28 DAILY. 00:00: 00 TAKE 1 2022-0 No 100 TABLET 7-28 EVERY 8 00:00: HOURS. 00 TAKE 1 2022-0 No [id number] TABLET 7-28 TWICE DAILY 00:00: WITH FOOD. 00 Dose 2022-0 No Unknown 7-28 00:00: 00 TAKE 2 2022-0 No 20 TABLETS X 1 7-28 TODAY. THEN 00:00: 1 TABLET 00 DAILY X 5 DAYS TAKE 1 2022-0 No 80 TABLET 7-28 DAILY. 00:00: 00 TAKE 1 2022-0 No 100 TABLET 7-28 EVERY 8 00:00: HOURS. 00 TAKE 1 2022-0 No [id number] TABLET 7-28 TWICE DAILY 00:00: WITH FOOD. 00 TAKE 1 2022-0 No [id number] TABLET 7-25 TWICE DAILY 00:00: WITH FOOD. 00 TAKE 2 2022-0 No 20 TABLETS X 1 7-25 TODAY. THEN 00:00: 1 TABLET 00 DAILY X 5 DAYS TAKE 2 2022-0 No 20 TABLETS X 1 7-25 TODAY. THEN 00:00: 1 TABLET 00 DAILY X 5 DAYS TAKE 1 2022-0 No [id number] TABLET 7-25 TWICE DAILY 00:00: WITH FOOD. 00 TAKE 1 2022-0 No [id number] TABLET 7-25 TWICE DAILY 00:00: WITH FOOD. 00 TAKE 2 2022-0 No 20 TABLETS X 1 7-25 TODAY. THEN 00:00: 1 TABLET 00 DAILY X 5 DAYS TAKE 2 2022-0 No 20 TABLETS X 1 7-25 TODAY. THEN 00:00: 1 TABLET 00 DAILY X 5 DAYS TAKE 1 2022-0 No [id number] TABLET 7-25 TWICE DAILY 00:00: WITH FOOD. 00 TAKE 1 2022-0 No [id number] TABLET 7-25 TWICE DAILY 00:00: WITH FOOD. 00 TAKE 2 2022-0 No 20 TABLETS X 1 7-25 TODAY. THEN 00:00: 1 TABLET 00 DAILY X 5 DAYS TAKE 2 2022-0 No 20 TABLETS X 1 7-25 TODAY. THEN 00:00: 1 TABLET 00 DAILY X 5 DAYS TAKE 1 2022-0 No [id number] TABLET 7-25 TWICE DAILY 00:00: WITH FOOD. 00 TAKE 1 2022-0 No [id number] TABLET 7-25 TWICE DAILY 00:00: WITH FOOD. 00 TAKE 2 2022-0 No 20 TABLETS X 1 7-25 TODAY. THEN 00:00: 1 TABLET 00 DAILY X 5 DAYS TAKE 2 2022-0 No 20 TABLETS X 1 7-25 TODAY. THEN 00:00: 1 TABLET 00 DAILY X 5 DAYS TAKE 1 2022-0 No [id number] TABLET 7-25 TWICE DAILY 00:00: WITH FOOD. 00 TAKE 1 2022-0 No [id number] TABLET 7-25 TWICE DAILY 00:00: WITH FOOD. 00 TAKE 2 2022-0 No 20 TABLETS X 1 7-25 TODAY. THEN 00:00: 1 TABLET 00 DAILY X 5 DAYS TAKE 2 2022-0 No 20 TABLETS X 1 7-25 TODAY. THEN 00:00: 1 TABLET 00 DAILY X 5 DAYS TAKE 1 2022-0 No [id number] TABLET 7-25 TWICE DAILY 00:00: WITH FOOD. 00 TAKE 1 2022-0 No [id number] TABLET 7-25 TWICE DAILY 00:00: WITH FOOD. 00 TAKE 2 2022-0 No 20 TABLETS X 1 7-25 TODAY. THEN 00:00: 1 TABLET 00 DAILY X 5 DAYS TAKE 2 2022-0 No 20 TABLETS X 1 7-25 TODAY. THEN 00:00: 1 TABLET 00 DAILY X 5 DAYS TAKE 1 2022-0 No [id number] TABLET 7-25 TWICE DAILY 00:00: WITH FOOD. 00 pantoprazol 2022-0 No 1mg e 40 mg 7-22 tablet,edvin 00:00: yed release 00 pantoprazol 2022-0 No 1mg e 40 mg 7-22 tablet,edvin 00:00: yed release 00 pantoprazol 2022-0 No 1mg e 40 mg 7-22 tablet,edvin 00:00: yed release 00 pantoprazol 2022-0 No 1mg e 40 mg 7-22 tablet,edvin 00:00: yed release 00 pantoprazol 2022-0 No 1mg e 40 mg 7-22 tablet,edvin 00:00: yed release 00 pantoprazol 2022-0 No 1mg e 40 mg 7-22 tablet,edvin 00:00: yed release 00 Dose 2022-0 No Unknown 7-17 00:00: 00 Dose 2022-0 No Unknown 7-17 00:00: 00 Dose 2022-0 No Unknown 7-17 00:00: 00 Dose 2022-0 No Unknown 11-28 00:00: 00 Dose 2022-0 No Unknown 11-28 00:00: 00 Dose 2022-0 No Unknown 11-28 00:00: 00 lisinopril 2022-0 No 1mg 40 mg 7-07 tablet 00:00: 00 Dose 2022-0 No Unknown 11-18 00:00: 00 TAKE 1 2022-0 No [id number] TABLET - TWICE DAILY 00:00: WITH FOOD. 00 lisinopril 2022-0 No 1mg 40 mg 7- tablet 00:00: 00 Dose 2022-0 No Unknown 11-18 00:00: 00 TAKE 1 2-0 No [id number] TABLET - TWICE DAILY 00:00: WITH FOOD. 00 lisinopril 2-0 No 1mg 40 mg 7- tablet 00:00: 00 Dose 2022-0 No Unknown 11-18 00:00: 00 TAKE 1 2-0 No [id number] TABLET - TWICE DAILY 00:00: WITH FOOD. 00 lisinopril 2-0 No 1mg 40 mg 7-07 tablet 00:00: 00 Dose 2022-0 No Unknown 11-18 00:00: 00 TAKE 1 2-0 No [id number] TABLET - TWICE DAILY 00:00: WITH FOOD. 00 lisinopril 2-0 No 1mg 40 mg 7-07 tablet 00:00: 00 Dose 2022-0 No Unknown 11-18 00:00: 00 TAKE 1 2-0 No [id number] TABLET - TWICE DAILY 00:00: WITH FOOD. 00 lisinopril 2-0 No 1mg 40 mg 7-07 tablet 00:00: 00 atorvastati 2022-0 No 1mg n 80 mg 7- tablet 00:00: 00 TAKE 1 2-0 No [id number] TABLET - TWICE DAILY 00:00: WITH FOOD. 00 buspirone 5 2-0 No 1mg mg tablet 11-12 00:00: 00 Lexapro 10 2-0 No 1mg mg tablet 11-12 00:00: 00 TAKE 1 2022-0 No [id number] TABLET 11-12 TWICE DAILY 00:00: WITH FOOD. 00 Dose 2022-0 No Unknown 11-12 00:00: 00 TAKE 2 2022-0 No 20 TABLETS X 1 11-12 TODAY. THEN 00:00: 1 TABLET 00 DAILY X 5 DAYS buspirone 5 2022-0 No 1mg mg tablet 11-12 00:00: 00 Lexapro 10 2022-0 No 1mg mg tablet 11-12 00:00: 00 TAKE 1 2022-0 No [id number] TABLET 11-12 TWICE DAILY 00:00: WITH FOOD. 00 Dose 2-0 No Unknown 11-12 00:00: 00 TAKE 2 2022-0 No 20 TABLETS X 11-12 TODAY. THEN 00:00: 1 TABLET 00 DAILY X 5 DAYS buspirone 5 2-0 No 1mg mg tablet 11-12 00:00: 00 Lexapro 10 2022-0 No 1mg mg tablet 11-12 00:00: 00 TAKE 1 2022-0 No [id number] TABLET 11-12 TWICE DAILY 00:00: WITH FOOD. 00 Dose 2021-0 No Unknown 11-12 00:00: 00 TAKE 2 2022-0 No 20 TABLETS X 11-12 TODAY. THEN 00:00: 1 TABLET 00 DAILY X 5 DAYS buspirone 5 2-0 No 1mg mg tablet 11-12 00:00: 00 Lexapro 10 2022-0 No 1mg mg tablet 11-12 00:00: 00 TAKE 1 2022-0 No [id number] TABLET 11-12 TWICE DAILY 00:00: WITH FOOD. 00 Dose 2021-0 No Unknown 11-12 00:00: 00 TAKE 2 2022-0 No 20 TABLETS X 11-12 TODAY. THEN 00:00: 1 TABLET 00 DAILY X 5 DAYS buspirone 5 2-0 No 1mg mg tablet 11-12 00:00: 00 Lexapro 10 2022-0 No 1mg mg tablet 11-12 00:00: 00 TAKE 1 2022-0 No [id number] TABLET 11-12 TWICE DAILY 00:00: WITH FOOD. 00 Dose 2-0 No Unknown 11-12 00:00: 00 TAKE 2 2022-0 No 20 TABLETS X 11-12 TODAY. THEN 00:00: 1 TABLET 00 DAILY X 5 DAYS buspirone 5 2022-0 No 1mg mg tablet 11-12 00:00: 00 Lexapro 10 2022-0 No 1mg mg tablet 7 00:00: 00 TAKE 1 2-0 No [id number] TABLET - TWICE DAILY 00:00: WITH FOOD. 00 Dose 2021-0 No Unknown 7 00:00: 00 TAKE 2 2021-0 No 20 TABLETS X 1 11-12 TODAY. THEN 00:00: 1 TABLET 00 DAILY X 5 DAYS Dose 2022-0 No Unknown 6-24 00:00: 00 Dose 2022-0 No Unknown 6-24 00:00: 00 Dose 2022-0 No Unknown 6-24 00:00: 00 Dose 2022-0 No Unknown 6-24 00:00: 00 Dose 2022-0 No Unknown 6-24 00:00: 00 Dose 2022-0 No Unknown 6-24 00:00: 00 Dose 2022-0 No Unknown 6-24 00:00: 00 Dose 2022-0 No Unknown 6-24 00:00: 00 Dose 2022-0 No Unknown 6-24 00:00: 00 Dose 2022-0 No Unknown 6-24 00:00: 00 Dose 2022-0 No Unknown 6-24 00:00: 00 Dose 2022-0 No Unknown 6-24 00:00: 00 Dose 2022-0 No Unknown 6-24 00:00: 00 Dose 2022-0 No Unknown 6-24 00:00: 00 Dose 2022-0 No Unknown 6-24 00:00: 00 Dose 2022-0 No Unknown 6-24 00:00: 00 Dose 2022-0 No Unknown 6-24 00:00: 00 Dose 2022-0 No Unknown 6-24 00:00: 00 buspirone 5 2-0 No 1mg mg tablet 5 00:00: 00 Lexapro 10 2-0 No 1mg mg tablet 10-12 00:00: 00 buspirone 5 2021-0 No 1mg mg tablet 10-12 00:00: 00 Lexapro 10 2021-0 No 1mg mg tablet 10-12 00:00: 00 buspirone 5 2021-0 No 1mg mg tablet 10-12 00:00: 00 Lexapro 10 2021-0 No 1mg mg tablet - 00:00: 00 buspirone 5 2021-0 No 1mg mg tablet 10-12 00:00: 00 Lexapro 10 2021-0 No 1mg mg tablet 10-12 00:00: 00 buspirone 5 2021-0 No 1mg mg tablet 10-12 00:00: 00 Lexapro 10 2021-0 No 1mg mg tablet 10-12 00:00: 00 buspirone 5 2021-0 No 1mg mg tablet 10-12 00:00: 00 Lexapro 10 2021-0 No 1mg mg tablet 10-12 00:00: 00 Lexapro 10 2-0 No 1mg mg tablet 09-29 00:00: 00 Lexapro 10 2-0 No 1mg mg tablet 09-29 00:00: 00 Lexapro 10 2-0 No 1mg mg tablet 09-29 00:00: 00 Lexapro 10 2-0 No 1mg mg tablet 09-29 00:00: 00 Lexapro 10 2-0 No 1mg mg tablet 09-29 00:00: 00 Lexapro 10 2-0 No 1mg mg tablet 09-29 00:00: 00 lisinopril 2-0 No 1mg 40 mg 5-09 tablet 00:00: 00 lisinopril 2022-0 No 1mg 40 mg 5-09 tablet 00:00: 00 lisinopril 2-0 No 1mg 40 mg 5-09 tablet 00:00: 00 lisinopril 2022-0 No 1mg 40 mg 5-09 tablet 00:00: 00 lisinopril 2022-0 No 1mg 40 mg 5-09 tablet 00:00: 00 lisinopril 2-0 No 1mg 40 mg 5-09 tablet 00:00: 00 Levemir 2022-0 No 12(3 FlexTouch 4-07 mL) U-100 00:00: Insulin 100 00 unit/mL (3 mL) subcutaneou s pen lisinopril 2-0 No 1mg 40 mg 4-07 tablet 00:00: 00 pantoprazol 2022-0 No 1mg e 40 mg 4-07 tablet,edvin 00:00: yed release 00 carvedilol 2-0 No 1mg 25 mg 4-07 tablet 00:00: 00 Dose 2022-0 No Unknown 4-07 00:00: 00 hydralazine 2022-0 No 1mg 100 mg 4-07 tablet 00:00: 00 Levemir 2022-0 No 12(3 FlexTouch 4-07 mL) U-100 00:00: Insulin 100 00 unit/mL (3 mL) subcutaneou s pen lisinopril 2022-0 No 1mg 40 mg 4-07 tablet 00:00: 00 pantoprazol 2022-0 No 1mg e 40 mg 4-07 tablet,edvin 00:00: yed release 00 carvedilol 2022-0 No 1mg 25 mg 4-07 tablet 00:00: 00 Dose 2022-0 No Unknown 4-07 00:00: 00 hydralazine 2022-0 No 1mg 100 mg 4-07 tablet 00:00: 00 Levemir 2022-0 No 12(3 FlexTouch 4-07 mL) U-100 00:00: Insulin 100 00 unit/mL (3 mL) subcutaneou s pen lisinopril 2022-0 No 1mg 40 mg 4-07 tablet 00:00: 00 pantoprazol 2022-0 No 1mg e 40 mg 4-07 tablet,edvin 00:00: yed release 00 carvedilol 2022-0 No 1mg 25 mg 4-07 tablet 00:00: 00 Dose 2022-0 No Unknown 4-07 00:00: 00 hydralazine 2022-0 No 1mg 100 mg 4-07 tablet 00:00: 00 Levemir 2022-0 No 12(3 FlexTouch 4-07 mL) U-100 00:00: Insulin 100 00 unit/mL (3 mL) subcutaneou s pen lisinopril 2022-0 No 1mg 40 mg 4-07 tablet 00:00: 00 pantoprazol 2022-0 No 1mg e 40 mg 4-07 tablet,edvin 00:00: yed release 00 carvedilol 2022-0 No 1mg 25 mg 4-07 tablet 00:00: 00 Dose 2022-0 No Unknown 4-07 00:00: 00 hydralazine 2022-0 No 1mg 100 mg 4-07 tablet 00:00: 00 Levemir 2022-0 No 12(3 FlexTouch 4-07 mL) U-100 00:00: Insulin 100 00 unit/mL (3 mL) subcutaneou s pen lisinopril 2022-0 No 1mg 40 mg 4-07 tablet 00:00: 00 pantoprazol 2022-0 No 1mg e 40 mg 4-07 tablet,edvin 00:00: yed release 00 carvedilol 2022-0 No 1mg 25 mg 4-07 tablet 00:00: 00 atorvastati 2022-0 No 1mg n 80 mg 4-07 tablet 00:00: 00 hydralazine 2022-0 No 1mg 100 mg 4-07 tablet 00:00: 00 Levemir 2022-0 No 12(3 FlexTouch 4-07 mL) U-100 00:00: Insulin 100 00 unit/mL (3 mL) subcutaneou s pen lisinopril 2-0 No 1mg 40 mg 4-07 tablet 00:00: 00 pantoprazol 2022-0 No 1mg e 40 mg 4-07 tablet,edvin 00:00: yed release 00 carvedilol 2022-0 No 1mg 25 mg 4-07 tablet 00:00: 00 Dose 2022-0 No Unknown 4-07 00:00: 00 hydralazine 2022-0 No 1mg 100 mg 4-07 tablet 00:00: 00 pantoprazol 2022-0 No 1mg e 40 mg 3-08 tablet,edvin 00:00: yed release 00 Dose 2022-0 No Unknown 3-08 00:00: 00 Dose 2022-0 No Unknown 3-08 00:00: 00 pantoprazol 2022-0 No 1mg e 40 mg 3-08 tablet,edvin 00:00: yed release 00 Dose 2022-0 No Unknown 3-08 00:00: 00 Dose 2022-0 No Unknown 3-08 00:00: 00 pantoprazol 2022-0 No 1mg e 40 mg 3-08 tablet,edvin 00:00: yed release 00 Dose 2022-0 No Unknown 3-08 00:00: 00 Dose 2022-0 No Unknown 3-08 00:00: 00 pantoprazol 2022-0 No 1mg e 40 mg 3-08 tablet,edvin 00:00: yed release 00 Dose 2022-0 No Unknown 3-08 00:00: 00 Dose 2022-0 No Unknown 3-08 00:00: 00 pantoprazol 2022-0 No 1mg e 40 mg 3-08 tablet,edvin 00:00: yed release 00 Dose 2-0 No Unknown 3-08 00:00: 00 Dose 2022-0 No Unknown 3-08 00:00: 00 pantoprazol 2-0 No 1mg e 40 mg 3-08 tablet,edvin 00:00: yed release 00 Dose 2022-0 No Unknown 3-08 00:00: 00 Dose 2022-0 No Unknown 3-08 00:00: 00 carvedilol 2022-0 No 1mg 25 mg 1-31 tablet 00:00: 00 carvedilol 2022-0 No 1mg 25 mg 1-31 tablet 00:00: 00 carvedilol 2022-0 No 1mg 25 mg 1-31 tablet 00:00: 00 carvedilol 2022-0 No 1mg 25 mg 1-31 tablet 00:00: 00 carvedilol 2022-0 No 1mg 25 mg 1-31 tablet 00:00: 00 carvedilol 2022-0 No 1mg 25 mg 1-31 tablet 00:00: 00 pantoprazol 1-1 No 1mg e 40 mg 2-23 tablet,edvin 00:00: yed release 00 fluoxetine 1-1 No 1mg 60 mg 2-23 tablet 00:00: 00 Dose 1-1 No Unknown 2-23 00:00: 00 pantoprazol 1-1 No 1mg e 40 mg 2-23 tablet,edvin 00:00: yed release 00 fluoxetine 1-1 No 1mg 60 mg 2-23 tablet 00:00: 00 Dose 1-1 No Unknown 2-23 00:00: 00 pantoprazol 1-1 No 1mg e 40 mg 2-23 tablet,edvin 00:00: yed release 00 fluoxetine 1-1 No 1mg 60 mg 2-23 tablet 00:00: 00 Dose 1-1 No Unknown 2-23 00:00: 00 pantoprazol 1-1 No 1mg e 40 mg 2-23 tablet,edvin 00:00: yed release 00 fluoxetine 1-1 No 1mg 60 mg 2-23 tablet 00:00: 00 Dose 2020-1 No Unknown 2-23 00:00: 00 pantoprazol 2020-1 No 1mg e 40 mg 2-23 tablet,edvin 00:00: yed release 00 fluoxetine 2020-1 No 1mg 60 mg 2-23 tablet 00:00: 00 atorvastati 1-1 No 1mg n 80 mg 2-23 tablet 00:00: 00 pantoprazol 2020-1 No 1mg e 40 mg 2-23 tablet,edvin 00:00: yed release fluoxetine 2020-1 No 1mg 60 mg 2-23 tablet 00:00: 00 Dose 1-1 No Unknown 2-23 00:00: 00 lisinopril 1-1 No 1mg 40 mg 2-10 tablet 00:00: 00 lisinopril 1-1 No 1mg 40 mg 2-10 tablet 00:00: 00 lisinopril 1-1 No 1mg 40 mg 2-10 tablet 00:00: 00 lisinopril 1-1 No 1mg 40 mg 2-10 tablet 00:00: 00 lisinopril 2020-1 No 1mg 40 mg 2-10 tablet 00:00: 00 lisinopril 1-1 No 1mg 40 mg 2-10 tablet 00:00: 00 hydralazine 1-1 No 1mg 100 mg 1-22 tablet 00:00: 00 hydralazine 1-1 No 1mg 100 mg 1-22 tablet 00:00: 00 hydralazine 1-1 No 1mg 100 mg 1-22 tablet 00:00: 00 hydralazine 1-1 No 1mg 100 mg 1-22 tablet 00:00: 00 hydralazine 1-1 No 1mg 100 mg 1-22 tablet 00:00: 00 hydralazine 1-1 No 1mg 100 mg 1-22 tablet 00:00: 00 pantoprazol 1-0 No 1mg e 40 mg 9-25 tablet,edvin 00:00: yed release 00 carvedilol 1-0 No 1mg 25 mg 9-25 tablet 00:00: 00 atorvastati 1-0 No 1mg n 80 mg 9-25 tablet 00:00: 00 pantoprazol 1-0 No 1mg e 40 mg 9-25 tablet,edvin 00:00: yed release 00 carvedilol 2021-0 No 1mg 25 mg 9-25 tablet 00:00: 00 atorvastati 2021-0 No 1mg n 80 mg 9-25 tablet 00:00: 00 pantoprazol 2021-0 No 1mg e 40 mg 9-25 tablet,edvin 00:00: yed release 00 carvedilol 2021-0 No 1mg 25 mg 9-25 tablet 00:00: 00 atorvastati 2021-0 No 1mg n 80 mg 9-25 tablet 00:00: 00 pantoprazol 2021-0 No 1mg e 40 mg 9-25 tablet,edvin 00:00: yed release 00 carvedilol 2021-0 No 1mg 25 mg 9-25 tablet 00:00: 00 pantoprazol 2021-0 No 1mg e 40 mg 9-25 tablet,edvin 00:00: yed release 00 carvedilol 2021-0 No 1mg 25 mg 9-25 tablet 00:00: 00 atorvastati 2021-0 No 1mg n 80 mg 9-25 tablet 00:00: 00 atorvastati 2021-0 No 1mg n 80 mg 9-25 tablet 00:00: 00 pantoprazol 2021-0 No 1mg e 40 mg 9-25 tablet,edvin 00:00: yed release 00 carvedilol 2021-0 No 1mg 25 mg 9-25 tablet 00:00: 00 atorvastati 2021-0 No 1mg n 80 mg 9-25 tablet 00:00: 00 Augmentin 2021-0 No 1mg 875 mg-125 8-16 mg tablet 00:00: 00 Augmentin 2021-0 No 1mg 875 mg-125 8-16 mg tablet 00:00: 00 Augmentin 2021-0 No 1mg 875 mg-125 8-16 mg tablet 00:00: 00 Augmentin 2021-0 No 1mg 875 mg-125 8-16 mg tablet 00:00: 00 Augmentin 2021-0 No 1mg 875 mg-125 8-16 mg tablet 00:00: 00 Augmentin 2021-0 No 1mg 875 mg-125 8-16 mg tablet 00:00: 00 lisinopril 2021-0 No 1mg 40 mg 5-25 tablet 00:00: 00 pantoprazol 2021-0 No 1mg e 40 mg 5-25 tablet,edvin 00:00: yed release 00 lisinopril 2021-0 No 1mg 40 mg 5-25 tablet 00:00: 00 carvedilol 2021-0 No 1mg 25 mg 5-25 tablet 00:00: 00 levetiracet 2021-0 No 1mg am 1,000 mg 5-25 tablet 00:00: 00 levetiracet 2021-0 No 1mg am 1,000 mg 5-25 tablet 00:00: 00 carvedilol 2021-0 No 1mg 25 mg 5-25 tablet 00:00: 00 atorvastati 2021-0 No 1mg n 80 mg 5-25 tablet 00:00: 00 hydralazine 2021-0 No 1mg 100 mg 5-25 tablet 00:00: 00 hydralazine 2021-0 No 1mg 100 mg 5-25 tablet 00:00: 00 gabapentin 2021-0 No 1mg 300 mg 5-25 capsule 00:00: 00 lisinopril 2021-0 No 1mg 40 mg 5-25 tablet 00:00: 00 pantoprazol 1-0 No 1mg e 40 mg 5-25 tablet,edvin 00:00: yed release 00 lisinopril 2021-0 No 1mg 40 mg 5-25 tablet 00:00: 00 carvedilol 2021-0 No 1mg 25 mg 5-25 tablet 00:00: 00 levetiracet 2021-0 No 1mg am 1,000 mg 5-25 tablet 00:00: 00 levetiracet 2021-0 No 1mg am 1,000 mg 5-25 tablet 00:00: 00 carvedilol 2021-0 No 1mg 25 mg 5-25 tablet 00:00: 00 atorvastati 2021-0 No 1mg n 80 mg 5-25 tablet 00:00: 00 hydralazine 2021-0 No 1mg 100 mg 5-25 tablet 00:00: 00 hydralazine 2021-0 No 1mg 100 mg 5-25 tablet 00:00: 00 gabapentin 2021-0 No 1mg 300 mg 5-25 capsule 00:00: 00 lisinopril 2021-0 No 1mg 40 mg 5-25 tablet 00:00: 00 pantoprazol 2021-0 No 1mg e 40 mg 5-25 tablet,edvin 00:00: yed release 00 lisinopril 2021-0 No 1mg 40 mg 5-25 tablet 00:00: 00 carvedilol 2021-0 No 1mg 25 mg 5-25 tablet 00:00: 00 levetiracet 2021-0 No 1mg am 1,000 mg 5-25 tablet 00:00: 00 levetiracet 2021-0 No 1mg am 1,000 mg 5-25 tablet 00:00: 00 carvedilol 2021-0 No 1mg 25 mg 5-25 tablet 00:00: 00 atorvastati 2021-0 No 1mg n 80 mg 5-25 tablet 00:00: 00 hydralazine 2021-0 No 1mg 100 mg 5-25 tablet 00:00: 00 hydralazine 2021-0 No 1mg 100 mg 5-25 tablet 00:00: 00 gabapentin 2021-0 No 1mg 300 mg 5-25 capsule 00:00: 00 lisinopril 2021-0 No 1mg 40 mg 5-25 tablet 00:00: 00 pantoprazol 1-0 No 1mg e 40 mg 5-25 tablet,edvin 00:00: yed release 00 lisinopril 2021-0 No 1mg 40 mg 5-25 tablet 00:00: 00 carvedilol 2021-0 No 1mg 25 mg 5-25 tablet 00:00: 00 levetiracet 2021-0 No 1mg am 1,000 mg 5-25 tablet 00:00: 00 levetiracet 2021-0 No 1mg am 1,000 mg 5-25 tablet 00:00: 00 carvedilol 2021-0 No 1mg 25 mg 5-25 tablet 00:00: 00 atorvastati 2021-0 No 1mg n 80 mg 5-25 tablet 00:00: 00 hydralazine 2021-0 No 1mg 100 mg 5-25 tablet 00:00: 00 hydralazine 2021-0 No 1mg 100 mg 5-25 tablet 00:00: 00 gabapentin 2021-0 No 1mg 300 mg 5-25 capsule 00:00: 00 lisinopril 2021-0 No 1mg 40 mg 5-25 tablet 00:00: 00 pantoprazol 2021-0 No 1mg e 40 mg 5-25 tablet,edvin 00:00: yed release 00 lisinopril 2021-0 No 1mg 40 mg 5-25 tablet 00:00: 00 carvedilol 2021-0 No 1mg 25 mg 5-25 tablet 00:00: 00 levetiracet 2021-0 No 1mg am 1,000 mg 5-25 tablet 00:00: 00 levetiracet 2021-0 No 1mg am 1,000 mg 5-25 tablet 00:00: 00 carvedilol 2021-0 No 1mg 25 mg 5-25 tablet 00:00: 00 atorvastati 2021-0 No 1mg n 80 mg 5-25 tablet 00:00: 00 hydralazine 2021-0 No 1mg 100 mg 5-25 tablet 00:00: 00 hydralazine 2021-0 No 1mg 100 mg 5-25 tablet 00:00: 00 gabapentin 2021-0 No 1mg 300 mg 5-25 capsule 00:00: 00 lisinopril 2021-0 No 1mg 40 mg 5-25 tablet 00:00: 00 pantoprazol 2021-0 No 1mg e 40 mg 5-25 tablet,edvin 00:00: yed release 00 lisinopril 2021-0 No 1mg 40 mg 5-25 tablet 00:00: 00 carvedilol 2021-0 No 1mg 25 mg 5-25 tablet 00:00: 00 levetiracet 2021-0 No 1mg am 1,000 mg 5-25 tablet 00:00: 00 levetiracet 2021-0 No 1mg am 1,000 mg 5-25 tablet 00:00: 00 carvedilol 2021-0 No 1mg 25 mg 5-25 tablet 00:00: 00 atorvastati 2021-0 No 1mg n 80 mg 5-25 tablet 00:00: 00 hydralazine 2021-0 No 1mg 100 mg 5-25 tablet 00:00: 00 hydralazine 2021-0 No 1mg 100 mg 5-25 tablet 00:00: 00 gabapentin 2021-0 No 1mg 300 mg 5-25 capsule 00:00: 00 pantoprazol 2021-0 No 1mg e 40 mg 5-13 tablet,edvin 00:00: yed release 00 pantoprazol 2021-0 No 1mg e 40 mg 5-13 tablet,edvin 00:00: yed release 00 pantoprazol 2021-0 No 1mg e 40 mg 5-13 tablet,evdin 00:00: yed release 00 pantoprazol 2021-0 No 1mg e 40 mg 5-13 tablet,edvin 00:00: yed release 00 pantoprazol 2021-0 No 1mg e 40 mg 5-13 tablet,edvin 00:00: yed release 00 pantoprazol 2021-0 No 1mg e 40 mg 5-13 tablet,edvin 00:00: yed release 00 atorvastati 2021-0 No 1mg n 80 mg 3-11 tablet 00:00: 00 atorvastati 2021-0 No 1mg n 80 mg 3-11 tablet 00:00: 00 atorvastati 2021-0 No 1mg n 80 mg 3-11 tablet 00:00: 00 atorvastati 2021-0 No 1mg n 80 mg 3-11 tablet 00:00: 00 atorvastati 2021-0 No 1mg n 80 mg 3-11 tablet 00:00: 00 atorvastati 2021-0 No 1mg n 80 mg 3-11 tablet 00:00: 00 pantoprazol 2021-0 No 1mg e 40 mg 1-28 tablet,edvin 00:00: yed release 00 pantoprazol 2021-0 No 1mg e 40 mg 1-28 tablet,edvin 00:00: yed release 00 pantoprazol 2021-0 No 1mg e 40 mg 1-28 tablet,edvin 00:00: yed release 00 pantoprazol 2021-0 No 1mg e 40 mg 1-28 tablet,edvin 00:00: yed release 00 pantoprazol 2021-0 No 1mg e 40 mg 1-28 tablet,edvin 00:00: yed release 00 pantoprazol 2021-0 No 1mg e 40 mg 1-28 tablet,edvin 00:00: yed release 00 atorvastati 2021-0 No 1mg n 80 mg 1-21 tablet 00:00: 00 atorvastati 0 No 1mg n 80 mg 1-21 tablet 00:00: 00 atorvastati 2020-0 No 1mg n 80 mg 1-21 tablet 00:00: 00 atorvastati 2020-0 No 1mg n 80 mg 1-21 tablet 00:00: 00 atorvastati 2020-0 No 1mg n 80 mg 1-21 tablet 00:00: 00 atorvastati 0 No 1mg n 80 mg 1-21 tablet 00:00: 00 fluoxetine 2019-05 No 1mg 60 mg 2-10 tablet 00:00: 00 fluoxetine 2019-05 No 1mg 60 mg 2-10 tablet 00:00: 00 fluoxetine 2019-05 No 1mg 60 mg 2-10 tablet 00:00: 00 fluoxetine 2019-05 No 1mg 60 mg 2-10 tablet 00:00: 00 fluoxetine 2019-05 No 1mg 60 mg 2-10 tablet 00:00: 00 fluoxetine 2019-05 No 1mg 60 mg 2-10 tablet 00:00: 00 insulin 2019-05 Yes QD Inject [facility] 1-[facility] 14:[facility]: [facility] (LEVEMIR) 29 nightly Center 100 unit/mL bedtime . injection insulin 2019-[address] [facility] aspart -04 [facility] (NovoLOG[facility] 29 (three) Center 100 unit/mL times (3 mL) InPn daily before meals Afternoon around noon . atorvastati 2019-05 Yes 80mg QD Take [address] [facility] (LIPITOR) 1-04 by mouth [facility] 80 MG 14:35: nightly. Medical tablet 29 Center FLUoxetine 2019-05 Yes 60mg QD Take [address] [facility] (PROzac) 40 1-04 by mouth [facility] MG capsule 14:35: daily 60 Med ical 29 mg (not Center 40mg)! . pantoprazol 2019-05 Yes 40mg QD Take [address] [facility] e 1-04 by mouth [facility] (PROTONIX) 14:35: daily. Medic al 40 MG 29 Center tablet insulin 2019-05 Yes QD Inject [facility] [...] [address] [facility] (PROzac) 40 1-04 by mouth [facility] MG capsule 14:35: daily 60 Med ical 29 mg (not Center 40mg)! . pantoprazol 2019-05 Yes 40mg QD Take [address] [facility] e 1-04 by mouth [facility] (PROTONIX) 14:35: daily. Medic al 40 MG 29 Center tablet insulin 2019-05 Yes QD Inject [facility] [...] [address] [facility] (PROzac) 40 1-04 by mouth [facility] MG capsule 14:35: daily 60 Med ical 29 mg (not Center 40mg)! . pantoprazol 2019-05 Yes 40mg QD Take [address] [facility] e 1-04 by mouth [facility] (PROTONIX) 14:35: daily. Medic al 40 MG 29 Center tablet insulin 2019-05 Yes QD Inject [facility] [...] [address] [facility] (PROzac) 40 1-04 by mouth [facility] MG capsule 14:35: daily 60 Med ical 29 mg (not Center 40mg)! . pantoprazol 2019-05 Yes 40mg QD Take [address] [facility] e 1-04 by mouth [facility] (PROTONIX) 14:35: daily. Medic al 40 MG 29 Center tablet insulin 2019-05 Yes QD Inject [facility] [...] [address] [facility] (PROzac) 40 1-04 by mouth [facility] MG capsule 14:35: daily 60 Med ical 29 mg (not Center 40mg)! . pantoprazol 2019-05 Yes 40mg QD Take [address] [facility] e 1-04 by mouth [facility] (PROTONIX) 14:35: daily. Medic al 40 MG 29 Center tablet insulin 2019-05 Yes QD Inject [facility] [...] [address] (PROzac) 40 1-04 by mouth [facility] MG capsule 14:35: daily 60 Med ical 29 mg (not Center 40mg)! . pantoprazol 2019-05 Yes 40mg QD Take [address] [facility] e 1-04 by mouth [facility] (PROTONIX) 14:35: daily. Medic al 40 MG 29 Center tablet insulin 2019-05 Yes QD Inject [facility] [...] [address] (PROzac) 40 1-04 by mouth [facility] MG capsule 14:35: daily 60 Med ical 29 mg (not Center 40mg)! . pantoprazol 2019-05 Yes 40mg QD Take [address] [facility] e 1-04 by mouth [facility] (PROTONIX) 14:35: daily. Medic al 40 MG 29 Center tablet insulin 2019-05 Yes QD Inject [facility] 1-04 [facility]o [facility]-100 14:35: [facility] (LEVEMIR) 29 nightly Center 100 unit/mL bedtime . injection insulin 2019-[address] [facility] aspart 1-04 subcutaneo [facility] U-100 14:35: usly 3 Medical (NovoLOG) 29 (three) Center 100 unit/mL times (3 mL) InPn daily before meals Afternoon around noon . atorvastati 2020-1 Yes 80mg QD Take [address] [facility] (LIPITOR) 1-04 by mouth [facility] 80 MG 14:35: nightly. Medical tablet 29 Center FLUoxetine 2019-05 Yes 60mg QD Take [address] (PROzac) 40 1-04 by mouth [facility] MG capsule 14:35: daily 60 Med ical 29 mg (not Center 40mg)! . pantoprazol 2019-05 Yes 40mg QD Take [address] [facility] 1-04 by mouth [facility] (PROTONIX) 14:35: daily. Medic al 40 MG 29 Center tablet insulin 2019-05 Yes QD Inject [facility] [...] [address] (PROzac) 40 1-04 by mouth [facility] MG capsule 14:35: daily 60 Med ical 29 mg (not Center 40mg)! . pantoprazol 2019-05 Yes 40mg QD Take [address] [facility] e 1-04 by mouth [facility] (PROTONIX) 14:35: daily. Medic al 40 MG 29 Center tablet insulin 2019-05 Yes QD Inject [facility] [...] [address] (PROzac) 40 05-18 by mouth [facility] MG capsule 14:35: daily 60 Med ical 29 mg (not Center 40mg)! . pantoprazol 2019-05 Yes 40mg QD Take [address] [facility] e 05-18 by mouth [facility] (PROTONIX) 14:35: daily. Medic al 40 MG 29 Center tablet gabapentin 2019-05- No 300mg [id number] Take [address] [facility] (NEURONTIN) 05-18 [id number] capsule [facility] 300 MG 00:00: 23:59 3D (300 mg Medical capsule 00 :00 total) by Center mouth 3 (three) times daily. hydrALAZINE 2019-05- No 100mg Take [address] [facility] [address] [facility] (APRESOLINE 05-18 tablet [facility] ) 100 MG 00:00: 23:59 (100 mg Medic al tablet 00 :00 total) by Center mouth every 8 (eight) hours. gabapentin 2019-05 No 300mg [id number] Take [address] [facility] (NEURONTIN) 05-18 [id number] capsule [facility] 300 MG 00:00: 23:59 3D (300 mg Medical capsule 00 :00 total) by Center mouth 3 (three) times daily. hydrALAZINE 2019-05- No 100mg Take [address] [facility] [address] [facility] (APRESOLINE 05-18 tablet [facility] ) 100 MG 00:00: 23:59 (100 mg Medic al tablet 00 :00 total) by Center mouth every 8 (eight) hours. gabapentin 2019-05- No 300mg [id number] Take [address] [facility] (NEURONTIN) 05-18 [id number] capsule [facility] 300 MG 00:00: 23:59 3D (300 mg Medical capsule 00 :00 total) by Center mouth 3 (three) times daily. hydrALAZINE 2019-05- No 100mg Take [address] [facility] (APRESOLINE 05-18 tablet [facility] ) 100 MG 00:00: 23:59 (100 mg Medic al tablet 00 :00 total) by Center mouth every 8 (eight) hours. gabapentin 2019-05- No 300mg [id number] Take [address] [facility] (NEURONTIN) 05-18 [id number] capsule [facility] 300 MG 00:00: 23:59 3D (300 mg Medical capsule 00 :00 total) by Center mouth 3 (three) times daily. hydrALAZINE 2019-05 No 100mg Take [address] [facility] [address] [facility] (APRESOLINE 05-18 tablet [facility] ) 100 MG 00:00: 23:59 (100 mg Medic al tablet 00 :00 total) by Center mouth every 8 (eight) hours. gabapentin 2019-05 No 300mg [id number] Take [address] [facility] (NEURONTIN) 05-18 [id number] capsule [facility] 300 MG 00:00: 23:59 3D (300 mg Medical capsule 00 :00 total) by Center mouth 3 (three) times daily. hydrALAZINE 2019-05 100mg Take [address] [facility] [address] [facility] (APRESOLINE 05-18 tablet [facility] ) 100 MG 00:00: 23:59 (100 mg Medic al tablet 00 :00 total) by Center mouth every 8 (eight) hours. lisinopriL 2019-05 No 40mg QD Take [address] [facility] (PRINIVIL,Z 0-19 10-19 tablet (40 [facility] ESTRIL) 40 00:00: 23:59 mg total) M edical MG tablet 00 :00 by mouth Center daily. lisinopriL 2019-05 40mg QD Take [address] [facility] (PRINIVIL,Z 0-19 10-19 tablet (40 L [facility] ESTRIL) 40 00:00: 23:59 mg total) M edical MG tablet 00 :00 by mouth Center daily. lisinopriL 2019-05 40mg QD Take [address] [facility] (PRINIVIL,Z 0-19 10-19 tablet (40 L [facility] ESTRIL) 40 00:00: 23:59 mg total) M edical MG tablet 00 :00 by mouth Center daily. carvediloL 2019-05 No 25mg Q.5D Take [address] [facility] (COREG) 25 0-18 10-18 tablet (25 Jodie kes MG tablet 00:00: 23:59 mg total) Me dical 00 :00 by mouth 2 Center (two) times daily. carvediloL 2020-1 2021- No 25mg Q.5D Take [address] [facility] (COREG) 25 0-18 10-18 tablet (25 Jodie kes MG tablet 00:00: 23:59 mg total) Me dical 00 :00 by mouth 2 Center (two) times daily. carvediloL 2019-05- No 25mg Q.5D Take [address] [facility] (COREG) 25 0-18 10-18 tablet (25 Jodie kes MG tablet 00:00: 23:59 mg total) Me dical 00 :00 by mouth 2 Center (two) times daily. mupirocin 2 2020-0 No 1% % topical 9-21 ointment 00:00: 00 sulfamethox 2020-0 No 1mg azole 800 9-21 mg-trimetho 00:00: prim 160 mg 00 tablet mupirocin 2 2020-0 No 1% % topical 9-21 ointment 00:00: 00 sulfamethox 2020-0 No 1mg azole 800 9-21 mg-trimetho 00:00: prim 160 mg 00 tablet mupirocin 2 2020-0 No 1% % topical 9-21 ointment 00:00: 00 mupirocin 2 2020-0 No 1% % topical 9-21 ointment 00:00: 00 sulfamethox 2020-0 No 1mg azole 800 9-21 mg-trimetho 00:00: prim 160 mg 00 tablet sulfamethox 2020-0 No 1mg azole 800 9-21 mg-trimetho 00:00: prim 160 mg 00 tablet mupirocin 2 2020-0 No 1% % topical 9-21 ointment 00:00: 00 sulfamethox 2020-0 No 1mg azole 800 9-21 mg-trimetho 00:00: prim 160 mg 00 tablet mupirocin 2 2020-0 No 1% % topical 9-21 ointment 00:00: 00 sulfamethox 2020-0 No 1mg azole 800 9-21 mg-trimetho 00:00: prim 160 mg 00 tablet Levemir 2020-0 No 10(3 FlexTouch 9-16 mL) U-100 00:00: Insulin 100 00 unit/mL (3 mL) subcutaneou s pen diclofenac 2020-0 No % 1 % topical 9-16 gel 00:00: 00 lisinopril 2020-0 No 1mg 10 mg 9-16 tablet 00:00: [...] n 80 mg 9-16 tablet 00:00: 00 Levemir 2020-0 No 10(3 FlexTouch 9-16 mL) U-100 00:00: Insulin 100 00 unit/mL (3 mL) subcutaneou s pen diclofenac 2020-0 No % 1 % topical 9-16 gel 00:00: 00 lisinopril 2020-0 No 1mg 10 mg 9-16 tablet 00:00: [...] n 80 mg 9-16 tablet 00:00: 00 Levemir 2020-0 No 10(3 FlexTouch 9-16 mL) U-100 00:00: Insulin 100 00 unit/mL (3 mL) subcutaneou s pen diclofenac 2020-0 No % 1 % topical 9-16 gel 00:00: 00 lisinopril 2020-0 No 1mg 10 mg 9-16 tablet 00:00: [...] n 80 mg 9-16 tablet 00:00: 00 Levemir 2020-0 No 10(3 FlexTouch 9-16 mL) U-100 00:00: Insulin 100 00 unit/mL (3 mL) subcutaneou s pen diclofenac 2020-0 No % 1 % topical 9-16 gel 00:00: 00 lisinopril 2020-0 No 1mg 10 mg 9-16 tablet 00:00: [...] n 80 mg 9-16 tablet 00:00: 00 Levemir 2020-0 No 10(3 FlexTouch 9-16 mL) U-100 00:00: Insulin 100 00 unit/mL (3 mL) subcutaneou s pen diclofenac 2020-0 No % 1 % topical 9-16 gel 00:00: 00 lisinopril 2020-0 No 1mg 10 mg 9-16 tablet 00:00: [...] n 80 mg 9-16 tablet 00:00: 00 Levemir 2020-0 No 10(3 FlexTouch 9-16 mL) U-100 00:00: Insulin 100 00 unit/mL (3 mL) subcutaneou s pen diclofenac 2020-0 No % 1 % topical 9-16 gel 00:00: 00 lisinopril 2020-0 No 1mg 10 mg 9-16 tablet 00:00: [...] n 80 mg 9-12 tablet 00:00: 00 diclofenac 2020-0 No % [...] n 80 mg 9-12 tablet 00:00: 00 diclofenac 2020-0 No % [...] n 80 mg 9-12 tablet 00:00: 00 diclofenac 2020-0 No % [...] n 80 mg 9-12 tablet 00:00: 00 diclofenac 2020-0 No % [...] n 80 mg 9-12 tablet 00:00: 00 diclofenac 2020-0 No % [...] 1mg 2.5 mg 7-08 tablet 00:00: 00 Novolog 2020-0 [...] mg 7-08 tablet,edvin 00:00: yed release 00 metoprolol 2020-0 No 1mg succinate 7-08 ER 25 mg 00:00: tablet,exte 00 nded release 24 hr clopidogrel 2020-0 No 1mg 75 mg 7-08 tablet 00:00: 00 atorvastati 2020-0 No 1mg n 80 mg 7-08 tablet 00:00: 00 pantoprazol 2020-0 No 1mg [...] n 80 mg 7-08 tablet 00:00: 00 diclofenac 2020-0 No % 1 % topical 3-25 gel 00:00: 00 Prozac 40 2020-0 No 1mg mg capsule 3-25 00:00: 00 Novolog 2020-0 No (3 mL) Flexpen 3-25 U-100 00:00: Insulin 00 aspart 100 unit/mL (3 mL) subcutaneou s diclofenac 2020-0 No % 1 % topical 3-25 gel 00:00: 00 Prozac 40 2020-0 No 1mg mg capsule 3-25 00:00: 00 Novolog 2020-0 No (3 mL) Flexpen 3-25 U-100 00:00: Insulin 00 aspart 100 unit/mL (3 mL) subcutaneou s diclofenac 2020-0 No % 1 % topical 3-25 gel 00:00: 00 Prozac 40 2020-0 No 1mg mg capsule 3-25 00:00: 00 Novolog 2020-0 No (3 mL) Flexpen 3-25 U-100 00:00: Insulin 00 aspart 100 unit/mL (3 mL) subcutaneou s diclofenac 2020-0 No % 1 % topical 3-25 gel 00:00: 00 Prozac 40 2020-0 No 1mg mg capsule 3-25 00:00: 00 Novolog 2020-0 No (3 mL) Flexpen 3-25 U-100 00:00: Insulin 00 aspart 100 unit/mL (3 mL) subcutaneou s diclofenac 2020-0 No % 1 % topical 3-25 gel 00:00: 00 Prozac 40 2020-0 No 1mg mg capsule 3-25 00:00: 00 Novolog 2020-0 No (3 mL) Flexpen 3-25 U-100 00:00: Insulin 00 aspart 100 unit/mL (3 mL) subcutaneou s diclofenac 2020-0 No % 1 % topical 3-25 gel 00:00: 00 Prozac 40 2020-0 No 1mg mg capsule 3-25 00:00: 00 Novolog 2020-0 No (3 mL) Flexpen 3-25 U-100 00:00: Insulin 00 aspart 100 unit/mL (3 mL) subcutaneou s lisinopril 2020-0 No 1mg 2.5 mg 1-15 [...] unit/mL (3 mL) subcutaneou s pen lisinopril 2020-0 No 1mg 2.5 mg 1-15 [...] 1mg 75 mg 1-15 tablet 00:00: 00 clopidogrel 2020-0 [...] unit/mL (3 mL) subcutaneou s pen lisinopril 2020-0 No 1mg 2.5 mg 1-15 tablet 00:00: 00 metoprolol 2020-0 No 1mg succinate 1-15 ER 25 mg 00:00: tablet,exte 00 nded release 24 hr pantoprazol 2020-0 No 1mg e 40 mg 1-15 tablet,edvin 00:00: yed release 00 clopidogrel 2020-0 No 1mg 75 mg 1-15 tablet 00:00: 00 atorvastati 2020-0 No 1mg n 80 mg 1-15 tablet 00:00: 00 pantoprazol 2020-0 [...] unit/mL (3 mL) subcutaneou s pen lisinopril 2020-0 No 1mg 2.5 mg 1-15 tablet 00:00: 00 metoprolol 2020-0 No 1mg succinate 1-15 ER 25 mg 00:00: tablet,exte 00 nded release 24 hr pantoprazol 2020-0 No 1mg e 40 mg 1-15 tablet,edvin 00:00: yed release 00 clopidogrel 2020-0 No 1mg 75 mg 1-15 tablet 00:00: 00 atorvastati 2020-0 No 1mg n 80 mg 1-15 tablet 00:00: 00 atorvastati 2020-0 No 1mg n 80 mg 1-15 tablet 00:00: 00 lisinopril 2020-0 No 1mg 2.5 mg 1-15 tablet 00:00: 00 clopidogrel 2020-0 [...] unit/mL (3 mL) subcutaneou s pen lisinopril 2020-0 No 1mg 2.5 mg 1-15 tablet 00:00: 00 metoprolol 2020-0 No 1mg succinate 1-15 ER 25 mg 00:00: tablet,exte 00 nded release 24 hr pantoprazol 2020-0 No 1mg e 40 mg 1-15 tablet,edvin 00:00: yed release 00 clopidogrel 2020-0 No 1mg 75 mg 1-15 tablet 00:00: 00 atorvastati 2020-0 No 1mg n 80 mg 1-15 tablet 00:00: 00 metoprolol 2020-0 No 1mg succinate 1-15 ER 25 mg 00:00: tablet,exte 00 nded release 24 hr Levemir 2020-0 No 10(3 FlexTouch 1-15 mL) U-100 00:00: Insulin 100 00 unit/mL (3 mL) subcutaneou s pen clopidogrel 2020-0 No 1mg 75 mg 1-15 [...] unit/mL (3 mL) subcutaneou s pen lisinopril 2020-0 No 1mg 2.5 mg 1-15 tablet 00:00: 00 metoprolol 2020-0 No 1mg succinate 1-15 ER 25 mg 00:00: tablet,exte 00 nded release 24 hr pantoprazol 2020-0 No 1mg e 40 mg 1-15 tablet,edvin 00:00: yed release 00 clopidogrel 2020-0 No 1mg 75 mg 1-15 tablet 00:00: 00 atorvastati 2020-0 No 1mg n 80 mg 1-15 tablet 00:00: 00 insulin 2019-[address] [facility] lispro 2-13 meals: [facility] (HUMALOG) 00:00: inject 1 Medi erwin 100 unit/mL 00 unit SQ if Ce nter InPn sugar >200; 2 units SQ if BG >250; 4 units SQ if BG >300; 6 units if > 350; 8 units if sugar > 400. glucometer 2019- Yes Use pre [facility] (FREESTYLE) 2-13 meals and [facility] Misc 00:00: pre Medical 00 bedtime Center with strips and lancets. blood sugar 2019 Yes 120{str Q.25D [address] [facility] diagnostic 2-13 ip} by [facility] (GLUCOSE 00:00: Miscellane Med ical BLOOD) Strp [address] 4 (four) times daily. lancets 2018-05 Yes Use for [facility] (LANCETS, 2-13 glucose [facility] SUPER THIN) 00:00: check 4 Med ical Misc 00 times Center daily. insulin 2018-05 Yes 10U QD Inject 10 [facility] glargine 2-13 Units [facility] (LANTUS) 00:00: subcutaneo Med ical 100 unit/mL 00 usly Center (3 mL) InPn nightly. insulin 2018- Yes Before [facility] lispro 2-13 meals: [...] Raman ter 4 (four) times daily. lancets 2018- Yes Use for [facility] (LANCETS, 2-13 glucose [facility] SUPER THIN) 00:00: check 4 Med ical Misc 00 times Center daily. insulin 2019- Yes 10U QD Inject 10 [facility] glargine 2-13 [facility] (LANTUS) 00:00: subcutaneo Med ical 100 unit/mL 00 usly Center (3 mL) InPn nightly. insulin 2019- Yes Before [facility] lispro 2-13 meals: [facility] (HUMALOG) 00:00: inject 1 Medi erwin 100 unit/mL 00 unit SQ if Ce nter InPn sugar >200; 2 units SQ if BG >250; 4 units SQ if BG >300; 6 units if > 350; 8 units if sugar > 400. glucometer 2018- Yes Use pre [facility] (FREESTYLE) 2-13 [...] Med ical Misc 00 times Center daily. insulin 2018-05 Yes 10U QD Inject 10 [facility] glargine 2-13 [facility] (LANTUS) 00:00: subcutaneo Med ical 100 unit/mL 00 usly Center (3 mL) InPn nightly. insulin 2019- Yes Before [facility] lispro 2-13 meals: [...] Center with strips and lancets. blood sugar 2018- Yes 120{str Q.25D [address] [facility] diagnostic 2-13 ip} by [facility] (GLUCOSE 00:00: Miscellane Med ical BLOOD) Strp [address] 4 (four) times daily. lancets 2018-05 Yes Use for [facility] (LANCETS, 2-13 glucose [facility] SUPER THIN) 00:00: check 4 Med ical Misc 00 times Center daily. insulin 2019- Yes 10U QD Inject 10 [facility] glargine 2-13 Units [facility] (LANTUS) 00:00: subcutaneo Med ical 100 unit/mL 00 usly Center (3 mL) InPn nightly. insulin 2019- Yes Before [facility] lispro 2-13 meals: [facility] (HUMALOG) 00:00: inject 1 Medi erwin 100 unit/mL 00 unit SQ if Ce nter InPn sugar >200; 2 units SQ if BG >250; 4 units SQ if BG >300; 6 units if > 350; 8 units if sugar > 400. glucometer 2018- Yes Use pre [facility] (FREESTYLE) 2-13 meals and [facility] Misc 00:00: pre Medical 00 bedtime Center with strips and lancets. blood sugar 2019- Yes 120{str Q.25D [address] [facility] diagnostic 2-13 ip} by [facility] (GLUCOSE 00:00: Miscellane Med ical BLOOD) Strp [address] 4 (four) times daily. lancets 2018-05 Yes Use for [facility] (LANCETS, 2-13 glucose [facility] SUPER THIN) 00:00: check 4 Med ical Misc 00 times Center daily. insulin 2019- Yes 10U QD Inject 10 [facility] glargine 2-13 Units [facility] (LANTUS) 00:00: subcutaneo Med ical 100 unit/mL 00 usly Center (3 mL) InPn nightly. insulin 2019- Yes Before [facility] lispro 2-13 meals: [facility] (HUMALOG) 00:00: inject 1 Medi erwin 100 unit/mL 00 unit SQ if Ce nter InPn sugar >200; 2 units SQ if BG >250; 4 units SQ if BG >300; 6 units if > 350; 8 units if sugar > 400. glucometer 2019- Yes Use pre [facility] (FREESTYLE) 2-13 meals and [facility] Misc 00:00: pre Medical 00 bedtime Center with strips and lancets. blood sugar 2019- Yes 120{str Q.25D [address] [facility] diagnostic 2-13 ip} by [facility] (GLUCOSE 00:00: Miscellane Med ical BLOOD) Strp [address] 4 (four) times daily. lancets 2019- Yes Use for [facility] (LANCETS, 2-13 glucose [facility] SUPER THIN) 00:00: check 4 Med ical Misc 00 times Center daily. insulin 2019- Yes 10U QD Inject 10 [facility] glargine 2-13 Units [facility] (LANTUS) 00:00: subcutaneo Med ical 100 unit/mL 00 usly Center (3 mL) InPn nightly. insulin 2019- Yes Before [facility] lispro 2-13 meals: [facility] (HUMALOG) 00:00: inject 1 Medi erwin 100 unit/mL 00 unit SQ if Ce nter InPn sugar >200; 2 units SQ if BG >250; 4 units SQ if BG >300; 6 units if > 350; 8 units if sugar > 400. glucometer 2019- Yes Use pre [facility] (FREESTYLE) 2-13 meals and [facility] Misc 00:00: pre Medical 00 bedtime Center with strips and lancets. blood sugar 2019- Yes 120{str Q.25D [address] [facility] diagnostic 2-13 ip} by [facility] (GLUCOSE 00:00: Miscellane Med ical BLOOD) Strp [address] 4 (four) times daily. lancets 2019- Yes Use for [facility] (LANCETS, 2-13 glucose [facility] SUPER THIN) 00:00: check 4 Med ical Misc 00 times Center daily. insulin 2019- Yes 10U QD Inject 10 [facility] glargine 2-13 Units [facility] (LANTUS) 00:00: subcutaneo Med ical 100 unit/mL 00 usly Center (3 mL) InPn nightly. insulin 2019- Yes Before [facility] lispro 2-13 meals: [facility] (HUMALOG) 00:00: inject 1 Medi erwin 100 unit/mL 00 unit SQ if Ce nter InPn sugar >200; 2 units SQ if BG >250; 4 units SQ if BG >300; 6 units if > 350; 8 units if sugar > 400. glucometer 2019- Yes Use pre [facility] (FREESTYLE) 2-13 meals and [facility] Misc 00:00: pre Medical 00 bedtime Center with strips and lancets. blood sugar 2019- Yes 120{str Q.25D [address] [facility] diagnostic 2-13 ip} by [facility] (GLUCOSE 00:00: Miscellane Med ical BLOOD) Strp [address] 4 (four) times daily. lancets 2019- Yes Use for [facility] (LANCETS, 2-13 glucose [facility] SUPER THIN) 00:00: check 4 Med ical Misc 00 times Center daily. insulin 2019- Yes 10U QD Inject 10 [facility] glargine 2-13 Units [facility] (LANTUS) 00:00: subcutaneo Med ical 100 unit/mL 00 usly Center (3 mL) InPn nightly. insulin 2019- Yes Before [facility] lispro 2-13 meals: [facility] (HUMALOG) 00:00: inject 1 Medi erwin 100 unit/mL 00 unit SQ if Ce nter InPn sugar >200; 2 units SQ if BG >250; 4 units SQ if BG >300; 6 units if > 350; 8 units if sugar > 400. glucometer 2018- Yes Use pre [facility] (FREESTYLE) 2-13 [...] Med ical Misc 00 times Center daily. insulin 2018- Yes 10U QD Inject 10 [facility] glargine 2-13 [facility] (LANTUS) 00:00: subcutaneo Med ical 100 unit/mL 00 usly Center (3 mL) InPn nightly. insulin 2019- Yes Before [facility] lispro 2-13 meals: [...] Center with strips and lancets. blood sugar 2019- Yes 120{str Q.25D [address] [facility] diagnostic 2-13 ip} by [facility] (GLUCOSE 00:00: Miscellane Med ical BLOOD) Strp [address] 4 (four) times daily. lancets 2019- Yes Use for [facility] (LANCETS, 2-13 glucose [facility] SUPER THIN) 00:00: check 4 Med ical Misc 00 times Center daily. insulin 2019- Yes 10U QD Inject 10 [facility] glargine 2-[facility] (LANTUS) 00:00: subcutaneo Med ical 100 unit/mL 00 ly Center (3 mL) InPn nightly. Immunizations Ordered Immunization Filled Immunization Date Status Commen ts Source Name Name [facility] HICKEYID-19 2020-11-05 Completed Vaccine 00:00:00 [facility] COVID-19 2020-11-05 Completed Vaccine 00:00:00 [facility] COVID-19 2020-11-05 Completed Vaccine 00:00:00 [facility]zel COVID-19 2020-11-05 Completed Vaccine 00:00:00 [facility]zel COVID-19 2020-11-05 Completed Vaccine 00:00:00 Denzel COVID-19 2020-11-05 Completed Vaccine 00:00:00 Pneumococcal 2020-02-[address] [facility] Conjugate (Prevnar) 00:00:00 [facility] 13-Valent Influenza Four-QIV 2020-02-[address] [facility] PF 3YR+ ([id number]) 00:00:00 [facility] Pneumococcal 2020-02-[address] [facility] Conjugate (Prevnar) 00:00:00 [facility] 13-Valent Influenza Four-QIV 2020-02-[address] [facility] PF 3YR+ ([id number]) 00:00:00 [facility] Pneumococcal 2020-02-[address] [facility] Conjugate (Prevnar) 00:00:00 [facility] 13-Valent Influenza Four-QIV 2020-02-[address] [facility] PF 3YR+ ([id number]) 00:00:00 [facility] Pneumococcal 2020-02-[address] [facility] Conjugate (Prevnar) 00:00:00 [facility] 13-Valent Influenza Four-QIV 2020-02-[address] [facility] PF 3YR+ ([id number]) 00:00:00 [facility] Pneumococcal 2020-02-[address] [facility] Conjugate (Prevnar) 00:00:00 [facility] Influenza Four-QIV 2020-02-[address] [facility] PF 3YR+ ([id number]) 00:00:00 [facility] Pneumococcal 2020-02-[address] [facility] Conjugate (Prevnar) 00:00:00 [facility] Influenza Four-QIV 2020-02-[address] [facility] PF 3YR+ ([id number]) 00:00:00 [facility] Pneumococcal 2020-02-[address] [facility] Conjugate (Prevnar) 00:00:00 [facility] Influenza Four-QIV 2020-02-[address] [facility] PF 3YR+ ([id number]) 00:00:00 [facility] Pneumococcal 2020-02-[address] [facility] Conjugate (Prevnar) 00:00:00 [facility] Influenza Four-QIV 2020-02-[address] [facility] PF 3YR+ ([id number]) 00:00:00 [facility] [place] Pneumococcal 2020-02-[address] [facility] Conjugate (Prevnar) 00:00:00 [facility] Influenza Four-QIV 2020-02-[address] [facility] PF 3YR+ ([id number]) 00:00:00 [facility] Pneumococcal 2020-02-[address] [facility] Conjugate (Prevnar) 00:00:00 [facility] Influenza Four-QIV 2020-02-[address] [facility] PF 3YR+ ([id number]) 00:00:00 [facility] Vital Signs Vital Name Observation Time Observation Value Comments Source HEIGHT 2020-03-13 05:44:00 172.7 cm WEIGHT 2020-03-13 05:44:00 77.7 kg HEIGHT 2020-02-28 06:00:00 172.7 cm WEIGHT 2020-02-28 06:00:00 77.2 kg HEIGHT 2020-03-13 05:44:00 172.7 cm WEIGHT 2020-03-13 05:44:00 77.7 kg HEIGHT 2020-02-28 06:00:00 172.7 cm WEIGHT 2020-02-28 06:00:00 77.2 kg BP Systolic 2022-04-14 08:08:00 146 mm[Hg] BP Diastolic 2022-04-14 08:08:00 71 mm[Hg] Weight Measured 2022-04-14 08:08:00 164.20 pounds Height Measured 2022-04-14 08:08:00 68.00 inches Body Temperature 2022-04-14 08:08:00 98.30 degrees Heart Rate 2022-04-14 08:08:00 68.00 /min Respiratory Rate 2022-04-14 08:08:00 18.00 /min BP Systolic 2022-04-11 17:48:00 BP Diastolic 2022-04-11 17:48:00 Weight Measured 2022-04-11 17:48:00 166.20 pounds Height Measured 2022-04-11 17:48:00 68.00 inches Body Temperature 2022-04-11 17:48:00 Heart Rate 2022-04-11 17:48:00 Respiratory Rate 2022-04-11 17:48:00 BP Systolic 2022-03-18 10:37:00 184 mm[Hg] BP Diastolic 2022-03-18 10:37:00 74 mm[Hg] Weight Measured 2022-03-18 10:37:00 166.20 pounds Height Measured 2022-03-18 10:37:00 68.00 inches Body Temperature 2022-03-18 10:37:00 98.50 degrees Heart Rate 2022-03-18 10:37:00 65.00 /min Respiratory Rate 2022-03-18 10:37:00 19.00 /min BP Systolic 2021-12-06 13:42:00 150 mm[Hg] BP [...] [facility] 00:00:00 [code = [id number]] [facility] Future Scheduled 2022-04-25 Lipid panel (procedure) [facility] 00:00:00 [code = [id number]] Medical Ce [facility]ter Future Scheduled 2022-04-25 Lipid panel (procedure) [facility] 00:00:00 [code = [id number]] Medical Ce [facility]ter Future Scheduled 2022-04-25 Lipid panel (procedure) [facility] 00:00:00 [code = [id number]] Medical Ce [facility]ter Future Scheduled 2022-04-25 Lipid panel (procedure) [facility] 00:00:00 [code = [id number]] Medical Ce [facility]ter Future Scheduled 2022-04-25 Lipid panel (procedure) [facility] 00:00:00 [code = [id number]] Medical Ce [facility]ter Future Scheduled 2022-04-25 Lipid panel (procedure) [facility] 00:00:00 [code = [id number]] Medical Ce [facility]ter Future Scheduled 2022-04-25 Lipid panel (procedure) [facility] 00:00:00 [code = [id number]] Medical Ce [facility]ter Future Scheduled 2022-04-25 Lipid panel (procedure) [facility] 00:00:00 [code = [id number]] Medical Ce [facility]ter Future Scheduled 2022-04-25 Lipid panel (procedure) [facility] 00:00:00 [code = [id number]] Medical Ce [facility]ter Future Scheduled 2022-01-13 INFLUENZA VACCINE (#1) [facility]:00 [code = INFLUENZA Medical Ce [facility]ter VACCINE (#1)] Future Scheduled 2022-01-13 INFLUENZA VACCINE (#1) [facility] 00:00:00 [code = INFLUENZA Medical Ce [facility]ter VACCINE (#1)] Future Scheduled 2022-01-13 INFLUENZA VACCINE (#1) [facility] 00:00:00 [code = INFLUENZA Medical Ce [facility]ter VACCINE (#1)] Future Scheduled 2022-01-13 INFLUENZA VACCINE (#1) [facility] 00:00:00 [code = INFLUENZA Medical Ce [facility]ter VACCINE (#1)] Future Scheduled 2022-01-13 INFLUENZA VACCINE (#1) [facility] 00:00:00 [code = INFLUENZA Medical Ce [facility]ter VACCINE (#1)] Future Scheduled 2022-01-13 INFLUENZA VACCINE (#1) [facility] 00:00:00 [code = INFLUENZA Medical Ce [facility]ter VACCINE (#1)] Future Scheduled 2022-01-13 INFLUENZA VACCINE (#1) [facility] 00:00:00 [code = INFLUENZA Medical Ce [facility]ter VACCINE (#1)] Future Scheduled 2022-01-13 INFLUENZA VACCINE (#1) [facility]:00:00 [code = INFLUENZA Medical Ce [facility]ter VACCINE (#1)] Future Scheduled 2022-01-13 INFLUENZA VACCINE (#1) [facility]:00:00 [code = INFLUENZA Medical Ce [facility]ter VACCINE (#1)] Future Scheduled 2022-01-13 INFLUENZA VACCINE (#1) [facility] 00:00:00 [code = INFLUENZA Medical Ce [facility]ter VACCINE (#1)] Future Scheduled 2021-05-[address] [facility] 00:00:00 (12+) [code = Medical Center DEPRESSION SCREENING (12+)] Future Scheduled 2021-05-[address] [facility] 00:00:00 (12+) [code = Medical Center DEPRESSION SCREENING (12+)] Future Scheduled 2021-05-[address] [facility] 00:00:00 (12+) [code = Medical Center DEPRESSION SCREENING (12+)] Future Scheduled 2021-05-[address] [facility] 00:00:00 (12+) [code = Medical Center DEPRESSION SCREENING (12+)] Future Scheduled 2021-05-[address] [facility] 00:00:00 (12+) [code = Medical Center DEPRESSION SCREENING (12+)] Future Scheduled 2021-05-[address] [facility] 00:00:00 (12+) [code = Medical Center DEPRESSION SCREENING (12+)] Future Scheduled 2021-05-[address] [facility] 00:00:00 (12+) [code = Medical Center DEPRESSION SCREENING (12+)] Future Scheduled 2021-05-[address] [facility] 00:00:00 (12+) [code = Medical Center DEPRESSION SCREENING (12+)] Future Scheduled 2021-05-[address] [facility] 00:00:00 (12+) [code = Medical Center DEPRESSION SCREENING (12+)] Future Scheduled 2021-05-[address] [facility] 00:00:00 (12+) [code = Medical Center DEPRESSION SCREENING (12+)] Future Scheduled 2021-03-[address] [facility] 00:00:00 Counseling and Medical Cente r Screening (12+) [code = Tobacco Cessation Counseling and Screening (12+)] Future Scheduled 2021-03-[address] [facility] 00:00:00 Counseling and Medical Cent[facility] r Screening (12+) [code = Tobacco Cessation Counseling and Screening (12+)] Future Scheduled 2021-03-[address] [facility] 00:00:00 Counseling and Medical Cent[facility] r Screening (12+) [code = Tobacco Cessation Counseling and Screening (12+)] Future Scheduled 2021-03-[address] [facility] 00:00:00 Counseling and Medical Cent[facility] r Screening (12+) [code = Tobacco Cessation Counseling and Screening (12+)] Future Scheduled 2021-03-[address] [facility] 00:00:00 Counseling and Medical Cent[facility] r Screening (12+) [code = Tobacco Cessation Counseling and Screening (12+)] Future Scheduled 2021-02-[address] [facility] 00:00:00 0-64 YRS (2 - P[facility]V23 [facility] [code = PNEUMOCOCCAL VACCINE 0-64 YRS (2 - PPSV23 or PCV20)] Future Scheduled 2021-02-[address] [facility] 00:00:00 0-64 YRS (2 - [facility]23 [facility]) [code = PNEUMOCOCCAL VACCINE 0-64 YRS (2 - PPSV23 or PCV20)] Future Scheduled 2021-02-[address] [facility] 00:00:00 0-64 YRS (2 - [facility]23 [facility]) [code = PNEUMOCOCCAL VACCINE 0-64 YRS (2 - PPSV23 or PCV20)] Future Scheduled 2021-02-[address] [facility] 00:00:00 0-64 YRS (2 - [facility]23 [facility]) [code = PNEUMOCOCCAL VACCINE 0-64 YRS (2 - PPSV23 or PCV20)] Future Scheduled 2021-02-[address] [facility] 00:00:00 0-64 YRS (2 - [facility]V23 [facility]) [code = PNEUMOCOCCAL VACCINE 0-64 YRS (2 - PPSV23 or PCV20)] Future Scheduled 2021-02-[address] [facility] 00:00:00 0-64 YRS (2 - [facility]V23 [facility] PC[facility]) [code = PNEUMOCOCCAL VACCINE 0-64 YRS (2 - PPSV23 or PCV20)] Future Scheduled 2021-02-[address] [facility] 00:00:00 0-64 YRS (2 - [facility]V23 [facility]) [code = PNEUMOCOCCAL VACCINE 0-64 YRS (2 - PPSV23 or PCV20)] Future Scheduled 2021-02-[address] [facility] 00:00:00 0-64 YRS (2 - [facility]V23 [facility] PC[facility]) [code = PNEUMOCOCCAL VACCINE 0-64 YRS (2 - PPSV23 or PCV20)] Future Scheduled 2021-02-[address] [facility] 00:00:00 0-64 YRS (2 - [facility]V23 [facility]) [code = PNEUMOCOCCAL VACCINE 0-64 YRS (2 - PPSV23 or PCV20)] Future Scheduled 2021-02-[address] [facility] 00:00:00 0-64 YRS (2 - P[facility]V23 [facility]) [code = PNEUMOCOCCAL VACCINE 0-64 YRS (2 - PPSV23 or PCV20)] Future Scheduled 2020-08-[address] [facility]procedure[facility] [code = [id number]] Future Scheduled 2020-08-[address] [facility]:00 measurement (procedure) [facility] [code = [id number]] Future Scheduled 2020-08-[address] [facility] 00:[facility]:00 measurement (procedure) [facility] [code = 93359491] Future Scheduled 2020-08-[address] [facility]00 [facility]procedure[facility] [code = [id number]] Future Scheduled 2020-08-[address] [facility]00 [facility]procedure[facility] [code = 27287417] Future Scheduled 2020-08-[address] [facility]00 [facility]procedure[facility] [code = 89024080] Future Scheduled 2020-08-[address] [facility]00 [facility]procedure[facility] [code = 45087912] Future Scheduled 2020-08-[address] [facility]00 [facility]procedure[facility] [code = 85960067] Future Scheduled 2020-08-[address] [facility]00 [facility]procedure[facility] [code = 33526703] Future Scheduled 2020-08-[address] [facility]00 [facility]procedure[facility] [code = 64781116] Future Scheduled 2012 SHINGLES VACCINES ([address] [facility] 00:00:00 2) [code = SHINGLES Medical Center VACCINES (1 of 2)] Future Scheduled 2012 SHINGLES VACCINES ([address] [facility] 00:00:00 2) [code = SHINGLES Medical Center VACCINES (1 of 2)] Future Scheduled 2012 SHINGLES VACCINES ([address] [facility] 00:00:00 2) [code = SHINGLES [facility] Center VACCINES (1 of 2)] Future Scheduled 2012 SHINGLES VACCINES ([address] [facility] 00:00:00 2) [code = SHINGLES [facility] Center VACCINES (1 of 2)] Future Scheduled 2012 SHINGLES VACCINES ([address] [facility] 00:00:00 2) [code = SHINGLES [facility] Center VACCINES (1 of 2)] Future Scheduled 2012 SHINGLES VACCINES ([address] [facility] 00:00:00 2) [code = SHINGLES [facility] Center VACCINES (1 of 2)] Future Scheduled 2012 SHINGLES VACCINES ([address] [facility] 00:00:00 2) [code = SHINGLES [facility] Center VACCINES (1 of 2)] Future Scheduled 2012 SHINGLES VACCINES ([address] [facility] 00:00:00 2) [facility] Future Scheduled 2012 SHINGLES VACCINES ([address] [facility] 00:00:00 2) [facility] Future Scheduled 2012 SHINGLES VACCINES ([address] [facility] 00:00:00 2) [facility])] Future Scheduled 1983 Screening for malignant [facility] 00:00:00 neoplasm of cervix Medical C enter (procedure) [code = 751705079] Future Scheduled 1983 Screening for malignant [facility] 00:00:00 neoplasm of cervix Medical C enter (procedure) [code = 114523956] Future Scheduled 1983 Screening for malignant [facility] 00:00:00 neoplasm of cervix Medical C enter (procedure) [code = 981627927] Future Scheduled 1983 Screening for malignant [facility] 00:00:00 neoplasm of cervix Medical C enter (procedure) [code = 051563510] Future Scheduled 1983 Screening for malignant [facility] 00:00:00 neoplasm of cervix Medical C enter (procedure) [code = 745167670] Future Scheduled 1983 Screening for malignant [facility] 00:00:00 neoplasm of cervix Medical C enter (procedure) [code = 119775321] Future Scheduled 1983 Screening for malignant [facility] 00:00:00 neoplasm of cervix Medical C enter (procedure) [code = 243649803] Future Scheduled 1983 Screening for malignant [facility] 00:00:00 neoplasm of cervix Medical C enter (procedure) [code = 850728587] Future Scheduled 1983 Screening for malignant [facility] 00:00:00 neoplasm of cervix Medical C enter (procedure) [code = 784282877] Future Scheduled 1983 Screening for malignant [facility] 00:00:00 neoplasm of cervix Medical C enter (procedure) [code = 904094377] Future Scheduled 1981 DTAP/TDAP/TD [facility]ACCINES [facility]:00 (1 - Tdap) [code = Medical C enter DTAP/TDAP/TD VACCINES (1 - Tdap)] Future Scheduled 1981 DTAP/TDAP/TD [facility]ACCINES [facility]:00:00 (1 - Tdap) [code = Medical C enter DTAP/TDAP/TD VACCINES (1 - Tdap)] Future Scheduled 1981 DTAP/TDAP/TD [facility]ACCINES [facility] 00:00:00 (1 - Tdap) [code = Medical C enter DTAP/TDAP/TD VACCINES (1 - Tdap)] Future Scheduled 1981 DTAP/TDAP/TD [facility]ACCINES [facility] 00:00:00 (1 - Tdap) [code = Medical C enter DTAP/TDAP/TD VACCINES (1 - Tdap)] Future Scheduled 1981 DTAP/TDAP/TD [facility]ACCINES [facility] 00:00:00 (1 - Tdap) [code = Medical C enter DTAP/TDAP/TD VACCINES (1 - Tdap)] Future Scheduled 1981 DTAP/TDAP/TD VACCINES [facility] 00:00:00 (1 - Tdap) [code = Medical C enter DTAP/TDAP/TD VACCINES (1 - Tdap)] Future Scheduled 1981 DTAP/TDAP/TD [facility]ACCINES [facility] 00:00:00 (1 - Tdap) [code = Medical C enter DTAP/TDAP/TD VACCINES (1 - Tdap)] Future Scheduled 1981 DTAP/TDAP/TD [facility]ACCINES [facility] 00:00:00 (1 - Tdap) [code = Medical C enter DTAP/TDAP/TD VACCINES (1 - Tdap)] Future Scheduled 1981 DTAP/TDAP/TD VACCINES [facility] 00:00:00 (1 - Tdap) [code = Medical C enter DTAP/TDAP/TD VACCINES (1 - Tdap)] Future Scheduled 1981 DTAP/TDAP/TD [facility]ACCINES [facility] 00:00:00 (1 - Tdap) [code = Medical C enter DTAP/TDAP/TD VACCINES (1 - Tdap)] Future Scheduled 1980 HEPATITIS C [facility]CRE[facility] [code = HEPATITIS C [facility] SCREENING] Future Scheduled 1980 HEPATITIS C [facility]:00 [code = HEPATITIS C [facility] Center SCREENING] Future Scheduled 1980 HEPATITIS C [facility]:00:00 [code = HEPATITIS C [facility] Center SCREENING] Future Scheduled 1980 HEPATITIS C [facility]:00:00 [code = HEPATITIS C [facility] Center SCREENING] Future Scheduled 1980 HEPATITIS C [facility]:00:00 [code = HEPATITIS C [facility] Center SCREENING] Future Scheduled 1980 HEPATITIS C [facility]:00:00 [code = HEPATITIS C [facility] Center SCREENING] Future Scheduled 1980 HEPATITIS C [facility]:00:00 [code = HEPATITIS C [facility] Center SCREENING] Future Scheduled 1980 HEPATITIS C [facility]:00:00 [code = HEPATITIS C [facility] Center SCREENING] Future Scheduled 1980 HEPATITIS C [facility]:00:00 [code = HEPATITIS C [facility] Center SCREENING] Future Scheduled 1980 HEPATITIS C [facility]:00:00 [code = HEPATITIS C Medical Center SCREENING] Future Scheduled 1972 DIABETIC EYE EXAM [code [facility] 00:00:00 = DIABETIC EYE EXAM] Medical Center Future Scheduled [address] [facility] examination [facility] Center (regime/therapy) [code = 114943545] Future Scheduled 1972 Urine screening for [facility] 00:00:00 protein (procedure) Medical Center [code = 823469129] Future Scheduled 1972 DIABETIC EYE EXAM [code [facility] 00:00:00 = DIABETIC EYE EXAM] [facility] Center Future Scheduled [address] [facility]00 examination [facility] Center (regime/therapy) [code = 582877990] Future Scheduled 1972 Urine screening for [facility] 00:00:00 protein (procedure) [facility] Center [code = 323230819] Future Scheduled 1972 DIABETIC EYE EXAM [code [facility] 00[facility]00:00 = DIABETIC EYE EXAM] Medical Center Future Scheduled [address] [facility]:00 examination [facility] Center (regime/therapy) [code = 464526569] Future Scheduled 1972 Urine screening for [facility] 00:00:00 protein (procedure) Medical Center [code = 783890986] Future Scheduled 1972 DIABETIC EYE EXAM [code [facility] 00:00:00 = DIABETIC EYE EXAM] [facility] Future Scheduled [address] [facility] 00:[facility]:00 examination [facility] Center (regime/therapy) [code = 893149114] Future Scheduled 1972 Urine screening for [facility] 00:00:00 protein (procedure) [facility] Center [code = 337298665] Future Scheduled 1972 DIABETIC EYE EXAM [code [facility] 00:00:00 = DIABETIC EYE EXAM] [facility] Center Future Scheduled [address] [facility] 00:[facility]:00 examination [facility] Center (regime/therapy) [code = 497044210] Future Scheduled 1972 Urine screening for [facility] 00:00:00 protein (procedure) [facility] Center [code = 684722654] Future Scheduled 1972 DIABETIC EYE EXAM [code [facility] 00:00:00 = DIABETIC EYE EXAM] [facility] Center Future Scheduled [address] [facility] 00:[facility]:00 examination [facility] Center (regime/therapy) [code = 208415843] Future Scheduled 1972 Urine screening for [facility] 00:00:00 protein (procedure) [facility] Center [code = 790638132] Future Scheduled 1972 DIABETIC EYE EXAM [code [facility] 00[facility]00:00 = DIABETIC EYE EXAM] Medical Center Future Scheduled [address] [facility] 00:[facility]:00 examination [facility] Center (regime/therapy) [code = 678755433] Future Scheduled 1972 Urine screening for [facility] 00:00:00 protein (procedure) [facility] Center [code = 500134480] Future Scheduled 1972 DIABETIC EYE EXAM [code [facility] 00[facility]00:00 = DIABETIC EYE EXAM] Medical Center Future Scheduled [address] [facility] 00:[facility]:00 examination [facility] Center (regime/therapy) [code = 759586794] Future Scheduled 1972 Urine screening for [facility] 00:00:00 protein (procedure) [facility] Center [code = 949629811] Future Scheduled 1972 DIABETIC EYE EXAM [code [facility] 00:00:00 = DIABETIC EYE EXAM] [facility] Center Future Scheduled [address] [facility] 00:[facility]:00 examination [facility] (regime/therapy) [code = 492744137] Future Scheduled 1972 Urine screening for [facility] 00:00:00 protein (procedure) [facility] Center [code = 828328811] Future Scheduled 1972 DIABETIC EYE EXAM [code [facility] 00:00:00 = DIABETIC EYE EXAM] [facility] Future Scheduled [address] [facility]:00 examination [facility] (regime/therapy) [code = 782157963] Future Scheduled 1972 Urine screening for [facility] 00:00:00 protein (procedure) [facility] Center [code = 139412874] Future Scheduled 1962 COVID-19 VACCINE (#1[facility]:00 [code = COVID-[address] VACCINE (#1)] Future Scheduled 1962 COVID-19 VACCINE (#1) [facility]:00:00 [code = COVID-[address] VACCINE (#1)] Future Scheduled 1962 COVID-19 VACCINE (#1) [facility]:00:00 [code = COVID-[address] VACCINE (#1)] Future Scheduled 1962 COVID-19 VACCINE (#1) [facility] 00:00:00 [code = COVID-[address] VACCINE (#1)] Future Scheduled 1962 COVID-19 VACCINE (#1) [facility] 00:00:00 [code = COVID-[address] VACCINE (#1)] Future Scheduled 1962 COVID-19 VACCINE (#1) [facility] 00:00:00 [code = COVID-[address] VACCINE (#1)] Future Scheduled 1962 COVID-19 VACCINE (#1) [facility] 00:00:00 [code = COVID-[address] VACCINE (#1)] Future Scheduled 1962 COVID-19 VACCINE (#1) [facility] 00:00:00 [code = COVID-[address] VACCINE (#1)] Future Scheduled 1962 COVID-19 VACCINE (#1) [facility] 00:00:00 [code = COVID-[address] VACCINE (#1)] Future Scheduled 1962 COVID-19 VACCINE (#1[facility] 00:00:00 [code = COVID-[address] VACCINE (#1)] Future Scheduled 1962 Screening for malignant [facility] 00:00:00 neoplasm of breast Medical C enter (procedure) [code = 543229969] Future Scheduled 1962 CT Colonography (combo) [facility] 00:00:00 [code = CT Colonography [facility] (combo)] Future Scheduled 1962 Screening for malignant [facility] 00:00:00 neoplasm of colon Medical Ce nter (procedure) [code = 356895749] Future Scheduled 1962 Screening for malignant [facility] 00:00:00 neoplasm of colon Medical Ce nter (procedure) [code = 576482765] Future Scheduled 1962 Screening for malignant [facility] 00:00:00 neoplasm of colon Medical Ce nter (procedure) [code = 225815957] Future Scheduled 1962 Screening for malignant [facility] 00:00:00 neoplasm of colon Medical Ce nter (procedure) [code = 113909251] Future Scheduled 1962 Sigmoidoscopy [code = [facility] S[facility]oscopy] [facility] Cent[facility] Future Scheduled 1962 Screening for malignant [facility] 00:00:00 neoplasm of breast Medical C enter (procedure) [code = 684633419] Future Scheduled 1962 CT Colonography (combo) [facility] 00:00:00 [code = CT Colonography [facility] (combo)] Future Scheduled 1962 Screening for malignant [facility] 00:00:00 neoplasm of colon Medical Ce nter (procedure) [code = 735574749] Future Scheduled 1962 Screening for malignant [facility] 00:00:00 neoplasm of colon Medical Ce nter (procedure) [code = 541999462] Future Scheduled 1962 Screening for malignant [facility] 00:00:00 neoplasm of colon Medical Ce nter (procedure) [code = 761900814] Future Scheduled 1962 Screening for malignant [facility] 00:00:00 neoplasm of colon Medical Ce nter (procedure) [code = 095233891] Future Scheduled 1962 Sigmoidoscopy [code = [facility] Sigmoidoscopy] [facility] Future Scheduled 1962 Screening for malignant [facility] 00:00:00 neoplasm of breast Medical C enter (procedure) [code = 291116505] Future Scheduled 1962 CT Colonography (combo) [facility] 00:00:00 [code = CT Colonography [facility] (combo)] Future Scheduled 1962 Screening for malignant [facility] 00:00:00 neoplasm of colon Medical Ce nter (procedure) [code = 387093907] Future Scheduled 1962 Screening for malignant [facility] 00:00:00 neoplasm of colon Medical Ce nter (procedure) [code = 316748099] Future Scheduled 1962 Screening for malignant [facility] 00:00:00 neoplasm of colon Medical Ce nter (procedure) [code = 210660842] Future Scheduled 1962 Screening for malignant [facility] 00:00:00 neoplasm of colon Medical Ce nter (procedure) [code = 760405018] Future Scheduled 1962 Sigmoidoscopy [code [facility] Sigmoidoscopy] [facility] Cent[facility] Future Scheduled 1962 Screening for malignant [facility] 00:00:00 neoplasm of breast Medical C enter (procedure) [code = 337498160] Future Scheduled 1962 CT Colonography (combo) [facility] 00:00:00 [code = [facility] Future Scheduled 1962 Screening for malignant [facility] 00:00:00 neoplasm of colon Medical Ce [facility]ter (procedure) [code = 603789450] Future Scheduled 1962 Screening for malignant [facility] 00:00:00 neoplasm of colon Medical Ce nter (procedure) [code = 546005631] Future Scheduled 1962 Screening for malignant [facility] 00:00:00 neoplasm of colon Medical Ce nter (procedure) [code = 335368100] Future Scheduled 1962 Screening for malignant [facility] 00:00:00 neoplasm of colon Medical Ce nter (procedure) [code = 053018354] Future Scheduled 1962 Sigmoidoscopy [code [facility] Sigmoidoscopy] [facility] Future Scheduled 1962 Screening for malignant [facility] 00:00:00 neoplasm of breast Medical C enter (procedure) [code = 401118361] Future Scheduled 1962 CT Colonography (combo) [facility] 00:00:00 [code = [facility] Future Scheduled 1962 Screening for malignant [facility] 00:00:00 neoplasm of colon Medical Ce nter (procedure) [code = 918232087] Future Scheduled 1962 Screening for malignant [facility] 00:00:00 neoplasm of colon Medical Ce nter (procedure) [code = 767184170] Future Scheduled 1962 Screening for malignant [facility] 00:00:00 neoplasm of colon Medical Ce nter (procedure) [code = 815135002] Future Scheduled 1962 Screening for malignant [facility] 00:00:00 neoplasm of colon Medical Ce nter (procedure) [code = 844617459] Future Scheduled 1962 Sigmoidoscopy [code [facility] Sigmoidoscopy] Medical Cent[facility] Future Scheduled 1962 Screening for malignant [facility] 00:00:00 neoplasm of breast Medical C enter (procedure) [code = 433313543] Future Scheduled 1962 CT Colonography (combo) [facility] 00:00:00 [code = [facility] Future Scheduled 1962 Screening for malignant [facility] 00:00:00 neoplasm of colon [facility] (procedure) [code = 413504649] Future Scheduled 1962 Screening for malignant [facility] 00:00:00 neoplasm of colon Medical Ce nter (procedure) [code = 944036038] Future Scheduled 1962 Screening for malignant [facility] 00:00:00 neoplasm of colon Medical Ce nter (procedure) [code = 094345443] Future Scheduled 1962 Screening for malignant [facility] 00:00:00 neoplasm of colon Medical Ce nter (procedure) [code = 992252832] Future Scheduled 1962 Sigmoidoscopy [facility]code = [facility] Cent[facility] Future Scheduled 1962 Screening for malignant [facility] 00:00:00 neoplasm of breast Medical C enter (procedure) [code = 216880392] Future Scheduled 1962 CT Colonography (combo) [facility] 00:00:00 [code = CT [facility] Future Scheduled 1962 Screening for malignant [facility] 00:00:00 neoplasm of colon Medical Ce nter (procedure) [code = 436759904] Future Scheduled 1962 Screening for malignant [facility] 00:00:00 neoplasm of breast Medical C enter (procedure) [code = 295885224] Future Scheduled 1962 CT Colonography (combo) [facility] 00:00:00 [code = CT [facility] ([facility] Future Scheduled 1962 Screening for malignant [facility] 00:00:00 neoplasm of colon Medical Ce nter (procedure) [code = 569216413] Future Scheduled 1962 Screening for malignant [facility] 00:00:00 neoplasm of colon Medical Ce nter (procedure) [code = 513564716] Future Scheduled 1962 Screening for malignant [facility] 00:00:00 neoplasm of colon Medical Ce nter (procedure) [code = 209005810] Future Scheduled 1962 Screening for malignant [facility] 00:00:00 neoplasm of colon Medical Ce nter (procedure) [code = 711760221] Future Scheduled 1962 Sigmoidoscopy [facility]code = [facility]] Medical Cente r Future Scheduled 1962 Screening for malignant [facility] 00:00:00 neoplasm of colon Medical Ce nter (procedure) [code = 826309126] Future Scheduled 1962 Screening for malignant [facility] 00:00:00 neoplasm of colon Medical Ce nter (procedure) [code = 036604979] Future Scheduled 1962 Screening for malignant [facility] 00:00:00 neoplasm of colon Medical Ce nter (procedure) [code = 519978558] Future Scheduled 1962 Sigmoidoscopy [facility]code = [facility]] Medical Cente r Future Scheduled 1962 Screening for malignant [facility] 00:00:00 neoplasm of breast Medical C enter (procedure) [code = 267060177] Future Scheduled 1962 CT Colonography (combo) [facility] 00:00:00 [code = CT Colonography [facility] (combo)] Future Scheduled 1962 Screening for malignant [facility] 00:00:00 neoplasm of colon Medical Ce nter (procedure) [code = 283911732] Future Scheduled 1962 Screening for malignant [facility] 00:00:00 neoplasm of colon Medical Ce nter (procedure) [code = 398128648] Future Scheduled 1962 Screening for malignant [facility] 00:00:00 neoplasm of colon Medical Ce nter (procedure) [code = 917080868] Future Scheduled 1962 Screening for malignant [facility] 00:00:00 neoplasm of colon Medical Ce nter (procedure) [code = 735604759] Future Scheduled 1962 Sigmoidoscopy [code = [facility]] Medical [facility] [place] [facility] Future Scheduled 1962 Screening for malignant [facility] 00:00:00 neoplasm of breast Medical C enter (procedure) [code = 601843354] Future Scheduled 1962 CT Colonography (combo) [facility] 00:00:00 [code = CT Colonography [facility] (combo)] Future Scheduled 1962 Screening for malignant [facility] 00:00:00 neoplasm of colon Medical Ce nter (procedure) [code = 804701993] Future Scheduled 1962 Screening for malignant [facility] 00:00:00 neoplasm of colon Medical Ce nter (procedure) [code = 717881944] Future Scheduled 1962 Screening for malignant [facility] 00:00:00 neoplasm of colon Medical Ce nter (procedure) [code = 768548968] Future Scheduled 1962 Screening for malignant [facility] 00:00:00 neoplasm of colon Medical Ce nter (procedure) [code = 130437643] Future Scheduled 1962 Sigmoidoscopy [code = [facility]] Medical Cente r Goal Plan of Care Note [code = 37535-1] Goal Plan of Care Note [code = 26824-1] Goal Plan of Care Note [code = 18020-4] Goal Plan of Care Note [code = 00305-4] Goal Plan of Care Note [code = 41012-1] Goal Plan of Care Note [code = 05888-2] Goal Plan of Care Note [code = 05723-3] Goal Plan of Care Note [code = 65333-0] Goal Plan of Care Note [code = 02141-1] Goal Plan of Care Note [code = 19418-3] Goal Plan of Care Note [code = 26277-0] Goal Plan of Care Note [code = 32725-2] Goal Plan of Care Note [code = 34101-2] Goal Plan of Care Note [code = 38446-4] Goal Plan of Care Note [code = 53513-7] Goal Plan of Care Note [code = 17042-6] Goal Plan of Care Note [code = 87348-5] Goal Plan of Care Note [code = 40103-1] Goal Plan of Care Note [code = 06789-5] Goal Plan of Care Note [code = 75961-4] Goal Plan of Care Note [code = 61044-2] Goal Plan of Care Note [code = 65130-0] Goal Plan of Care Note [code = 28656-7] Goal Plan of Care Note [code = 33327-8] Goal Plan of Care Note [code = 85457-2] Goal Plan of Care Note [code = 52634-9] Goal Plan of Care Note [code = 67554-8] Goal Plan of Care Note [code = 65971-9] Goal Plan of Care Note [code = 14273-6] Goal Plan of Care Note [code = 34280-5] Goal Plan of Care Note [code = 32583-9] Goal Plan of Care Note [code = 18609-2] Goal Plan of Care Note [code = 11057-3] Goal Plan of Care Note [code = 35676-7] Goal Plan of Care Note [code = 13242-7] Goal Plan of Care Note [code = 08522-3] Goal Plan of Care Note [code = 93027-8] Goal Plan of Care Note [code = 65892-7] Goal Plan of Care Note [code = 25483-2] Goal Plan of Care Note [code = 98244-3] Goal Plan of Care Note [code = 76950-1] Goal Plan of Care Note [code = 44266-5] Goal Plan of Care Note [code = 99574-5] Goal Plan of Care Note [code = 35106-9] Goal Plan of Care Note [code = 93240-0] Goal Plan of Care Note [code = 05514-7] Goal Plan of Care Note [code = 05443-2] Goal Plan of Care Note [code = 95612-8] Goal Plan of Care Note [code = 81270-0] Goal Plan of Care Note [code = 38558-0] Goal Plan of Care Note [code = 31344-7] Goal Plan of Care Note [code = 90576-6] Goal Plan of Care Note [code = 76451-6] Goal Plan of Care Note [code = 55032-2] Goal Plan of Care Note [code = 59245-0] Goal Plan of Care Note [code = 92696-2] Goal Plan of Care Note [code = 51746-5] Goal Plan of Care Note [code = 38749-1] Goal Plan of Care Note [code = 53748-1] Goal Plan of Care Note [code = 31491-9] Goal Plan of Care Note [code = 09624-9] Goal Plan of Care Note [code = 25388-2] Goal Plan of Care Note [code = 99797-6] Goal Plan of Care Note [code = 18891-0] Goal Plan of Care Note [code = 42889-0] Goal Plan of Care Note [code = 59222-4] Goal Plan of Care Note [code = 03012-8] Goal Plan of Care Note [code = 99384-3] Goal Plan of Care Note [code = 94446-4] Goal Plan of Care Note [code = 89497-7] Goal Plan of Care Note [code = 02449-5] Goal Plan of Care Note [code = 41708-4] Goal Plan of Care Note [code = 47185-0] Goal Plan of Care Note [code = 68410-3] Goal Plan of Care Note [code = 99947-7] Goal Plan of Care Note [code = 30768-7] Goal Plan of Care Note [code = 27411-7] Goal Plan of Care Note [code = 95515-2] Goal Plan of Care Note [code = 12054-9] Goal Plan of Care Note [code = 32979-9] Goal Plan of Care Note [code = 01945-2] Goal Plan of Care Note [code = 50250-6] Goal Plan of Care Note [code = 82775-8] Goal Plan of Care Note [code = 68704-2] Goal Plan of Care Note [code = 06468-1] Goal Plan of Care Note [code = 55647-6] Goal Plan of Care Note [code = 11968-6] Goal Plan of Care Note [code = 49830-7] Goal Plan of Care Note [code = 62621-7] Goal Plan of Care Note [code = 40624-4] Goal Plan of Care Note [code = 39418-2] Goal Plan of Care Note [code = 73699-1] Goal Plan of Care Note [code = 20688-0] Goal Plan of Care Note [code = 06782-9] Goal Plan of Care Note [code = 56608-6] Goal Plan of Care Note [code = 16672-5] Goal Plan of Care Note [code = 54215-0] Goal Plan of Care Note [code = 15278-9] Goal Plan of Care Note [code = 03621-5] Goal Plan of Care Note [code = 10812-4] Goal Plan of Care Note [code = 18353-6] Goal Plan of Care Note [code = 21037-1] Goal Plan of Care Note [code = 10749-6] Goal Plan of Care Note [code = 48963-8] Goal Plan of Care Note [code = 33562-1] Goal Plan of Care Note [code = 61830-2] Goal Plan of Care Note [code = 42952-8] Goal Plan of Care Note [code = 98277-1] Goal Plan of Care Note [code = 55077-9] Goal Plan of Care Note [code = 20765-8] Goal Plan of Care Note [code = 24058-5] Goal Plan of Care Note [code = 77287-5] Goal Plan of Care Note [code = 99496-5] Goal Plan of Care Note [code = 25984-6] Goal Plan of Care Note [code = 40626-8] Goal Plan of Care Note [code = 56634-6] Goal Plan of Care Note [code = 95436-0] Goal Plan of Care Note [code = 19482-9] Goal Plan of Care Note [code = 59603-8] Goal Plan of Care Note [code = 90020-0] Goal Plan of Care Note [code = 54162-3] Goal Plan of Care Note [code = 66046-9] Goal Plan of Care Note [code = 25082-1] Goal Plan of Care Note [code = 72112-4] Goal Plan of Care Note [code = 77655-8] Goal Plan of Care Note [code = 63308-5] Goal Plan of Care Note [code = 38937-6] Goal Plan of Care Note [code = 66713-2] Goal Plan of Care Note [code = 70934-4] Goal Plan of Care Note [code = 35591-2] Goal Plan of Care Note [code = 81235-1] Goal Plan of Care Note [code = 95887-4] Goal Plan of Care Note [code = 70861-9] Goal Plan of Care Note [code = 33296-7] Goal Plan of Care Note [code = 80920-3] Goal Plan of Care Note [code = 53684-0] Goal Plan of Care Note [code = 03274-8] Goal Plan of Care Note [code = 86867-3] Goal Plan of Care Note [code = 93783-7] Goal Plan of Care Note [code = 91816-9] Goal Plan of Care Note [code = 97529-8] Goal Plan of Care Note [code = 41021-5] Goal Plan of Care Note [code = 26316-4] Goal Plan of Care Note [code = 51526-6] Goal Plan of Care Note [code = 29079-3] Goal Plan of Care Note [code = 71088-0] Goal Plan of Care Note [code = 87966-1] Goal Plan of Care Note [code = 74976-8] Goal Plan of Care Note [code = 78685-1] Goal Plan of Care Note [code = 22740-8] Goal Plan of Care Note [code = 53132-6] Goal Plan of Care Note [code = 40722-8] Goal Plan of Care Note [code = 71436-4] Encounters Start End Encounter Admission Attending Care Care Encounter Source Date/Time Date/Time Type Type Clinicians Facility Department ID 2020-03-13 Inpatient ER WILLIE SOLIS Neurology [id number] SLE 05:05:00 MOHAMMAD 2020-02-27 Inpatient ER ADRIÁN, WILLIE Neuro ICU [id number] [facility] 22:20:00 SITA 2022-04-18 2022-04-18 Outpatient SFA SFA 64575-7 022 Jalen 11:45:59 11:45:59 1205 F Ant 2022-04-14 2022-04-14 Outpatient SFA SFA 08803-7 022 Jalen 07:59:09 07:59:09 1201 F Ant 2022-04-14 2022-04-14 Outpatient p56hf93w- [id number] e9 2tk39f-7 00:00:00 00:00:00 Visit 7558-47c5 558-47c5-9 -973d-783 73d-783d2b u2j55vbw0 58caf0 2022-04-12 2022-04-12 Outpatient SFA SFA 75008-6 022 Jalen 14:33:59 14:33:59 1129 F Ant 2022-04-11 2022-04-11 Outpatient SFA SFA 81064-5 022 Jalen 18:52:29 18:52:29 1128 F Ant 2022-04-11 2022-04-11 Outpatient [id number]- [id number] f2 s10107-7 00:00:00 00:00:00 Visit 0812-4bed 812-4bed-b -bdd8-65e dd8-65ebda socr89v8y f21a6d 2022-03-18 2022-03-18 Outpatient SFA SFA 08226-8 022 Jalen 10:30:06 10:30:06 1104 F Ant 2022-03-18 2022-03-18 Outpatient 9xo12umm- [id number] 3f w02rek-9 00:00:00 00:00:00 Visit 1827-4b7e 827-4b7e-9 -6t02-cs1 l14-cm359p 84ja1l061 m2y563 2022-03-09 2022-03-09 Outpatient h1n8g6o1- [id number] f8 p3n6w5-d 00:00:00 00:00:00 Visit jl42-2148 n10-0495-k -k3a2-051 1h3-617r21 x186o6410 5x6836 2022-02-18 2022-02-18 Outpatient SFA SFA 85078-7 022 Jalen 11:32:23 11:32:23 1007 F Ant 2022-02-10 2022-02-10 Outpatient SFA SFA 84109-8 022 Jalen 11:58:44 11:58:44 0929 F Ant 2022-02-092022-02-09 Outpatient 468r9l41- [id number] 8p5v11-6 00:00:00 00:00:00 Visit 6449-4af1 449-4af1-a -sr04-448 z83-769d62 y569p462z 9h692i 2021-12-06 2021-12-06 Outpatient 9b5g5415- [id number] 1c 5q5996-l 00:00:00 00:00:00 Visit n043-27iz 485-44bf-8 -88af-3be 8af-3bee40 a196b71e0 4c72f4 2020-03-27 2020-03-27 Outpatient MICHAEL SLEFabiola [facility] [id number] SLE 00:00:00 00:00:00 ROSANNA Results Test Description Test Time Test Comments Results Result Comments Source COMPREHENSIVE METABOLIC PANEL 2022-03-10 00:00:00 Test Item Value Reference Range Interpretation Comme nts GLUCOSE (test code = 2217) 129 MG/DL BUN (test code = 2208) 5 MG/DL CREATININE (test code = 2214) 0.64 MG/DL eGFR (2020 CKD-EPI) (test code = 73368) 102 ML/MIN/1.73 CALC BUN/CREAT (test code = 2235) 8 RATIO SODIUM (test code = 2231) 144 MEQ/L POTASSIUM (test code = 2228) 3.2 MEQ/L CHLORIDE (test code = 2215) 105 MEQ/L CARBON DIOXIDE (test code = 2206) 26 MEQ/L CALCIUM (test code = 2209) 8.9 MG/DL PROTEIN, TOTAL (test code = 2229) 6.5 G/DL ALBUMIN (test code = 2201) 3.9 G/DL CALC GLOBULIN (test code = 2240) 2.6 G/DL CALC A/G RATIO (test code = 2234) 1.5 RATIO BILIRUBIN, TOTAL (test code = 2207) 0.4 MG/DL ALKALINE PHOSPHATASE (test code = 2204) 112 U/L AST (test code = 2218) 24 U/L ALT (test code = 2219) 15 U/L COMPREHENSIVE METABOLIC [id number] 00:00:00 Test Item Value Reference Range Interpretation Comments GLUCOSE (test code = 2217) 129 MG/DL BUN (test code = 2208) 5 MG/DL CREATININE (test code = 2214) 0.64 MG/DL eGFR (2020 CKD-EPI) (test 102 ML/MIN/1.73 code = 62778) CALC BUN/CREAT (test code = 8 RATIO 2235) SODIUM (test code = 2231) 144 MEQ/L POTASSIUM (test code = 2228) 3.2 MEQ/L CHLORIDE (test code = 2215) 105 MEQ/L CARBON DIOXIDE (test code = 26 MEQ/L 2205) CALCIUM (test code = 2209) 8.9 MG/DL PROTEIN, TOTAL (test code = 6.5 G/DL 2228) ALBUMIN (test code = 2201) 3.9 G/DL CALC GLOBULIN (test code = 2.6 G/DL 2240) CALC A/G RATIO (test code = 1.5 RATIO 2234) BILIRUBIN, TOTAL (test code = 0.4 MG/DL 2206) ALKALINE PHOSPHATASE (test 112 U/L code = 2204) AST (test code = 2218) 24 U/L ALT (test code = 2219) 15 U/L COMPREHENSIVE METABOLIC [id number] 00:00:00 Test Item Value Reference Range Interpretation Comments GLUCOSE (test code = 2217) 129 MG/DL BUN (test code = 2208) 5 MG/DL CREATININE (test code = 2214) 0.64 MG/DL eGFR (2020 CKD-EPI) (test 102 ML/MIN/1.73 code = 49753) CALC BUN/CREAT (test code = 8 RATIO 2235) SODIUM (test code = 2231) 144 MEQ/L POTASSIUM (test code = 2228) 3.2 MEQ/L CHLORIDE (test code = 2215) 105 MEQ/L CARBON DIOXIDE (test code = 26 MEQ/L 2205) CALCIUM (test code = 2209) 8.9 MG/DL PROTEIN, TOTAL (test code = 6.5 G/DL 2228) ALBUMIN (test code = 2201) 3.9 G/DL CALC GLOBULIN (test code = 2.6 G/DL 2240) CALC A/G RATIO (test code = 1.5 RATIO 2234) BILIRUBIN, TOTAL (test code = 0.4 MG/DL 2206) ALKALINE PHOSPHATASE (test 112 U/L code = 2204) AST (test code = 2218) 24 U/L ALT (test code = 2219) 15 U/L COMPREHENSIVE METABOLIC [id number] 00:00:00 Test Item Value Reference Range Interpretation Comments GLUCOSE (test code = 2217) 129 MG/DL BUN (test code = 2208) 5 MG/DL CREATININE (test code = 2214) 0.64 MG/DL eGFR (2020 CKD-EPI) (test 102 ML/MIN/1.73 code = 76975) CALC BUN/CREAT (test code = 8 RATIO 2235) SODIUM (test code = 2231) 144 MEQ/L POTASSIUM (test code = 2228) 3.2 MEQ/L CHLORIDE (test code = 2215) 105 MEQ/L CARBON DIOXIDE (test code = 26 MEQ/L 2205) CALCIUM (test code = 2209) 8.9 MG/DL PROTEIN, TOTAL (test code = 6.5 G/DL 2228) ALBUMIN (test code = 2201) 3.9 G/DL CALC GLOBULIN (test code = 2.6 G/DL 2240) CALC A/G RATIO (test code = 1.5 RATIO 223) BILIRUBIN, TOTAL (test code = 0.4 MG/DL 2206) ALKALINE PHOSPHATASE (test 112 U/L code = 2204) AST (test code = 2218) 24 U/L ALT (test code = 2219) 15 U/L COMPREHENSIVE METABOLIC [id number] 00:00:00 Test Item Value Reference Range Interpretation Comments GLUCOSE (test code = 2217) 129 MG/DL BUN (test code = 2208) 5 MG/DL CREATININE (test code = 2214) 0.64 MG/DL eGFR (2020 CKD-EPI) (test 102 ML/MIN/1.73 code = 09490) CALC BUN/CREAT (test code = 8 RATIO 2235) SODIUM (test code = 2231) 144 MEQ/L POTASSIUM (test code = 2228) 3.2 MEQ/L CHLORIDE (test code = 2215) 105 MEQ/L CARBON DIOXIDE (test code = 26 MEQ/L 2206) CALCIUM (test code = 2209) 8.9 MG/DL PROTEIN, TOTAL (test code = 6.5 G/DL 2228) ALBUMIN (test code = 2201) 3.9 G/DL CALC GLOBULIN (test code = 2.6 G/DL 2240) CALC A/G RATIO (test code = 1.5 RATIO 2234) BILIRUBIN, TOTAL (test code = 0.4 MG/DL 2206) ALKALINE PHOSPHATASE (test 112 U/L code = 2204) AST (test code = 2218) 24 U/L ALT (test code = 2219) 15 U/L COMPREHENSIVE METABOLIC [id number] 00:00:00 Test Item Value Reference Range Interpretation Comments GLUCOSE (test code = 2217) 129 MG/DL BUN (test code = 2208) 5 MG/DL CREATININE (test code = 2214) 0.64 MG/DL eGFR (2020 CKD-EPI) (test 102 ML/MIN/1.73 code = 60919) CALC BUN/CREAT (test code = 8 RATIO 2235) SODIUM (test code = 2231) 144 MEQ/L POTASSIUM (test code = 2228) 3.2 MEQ/L CHLORIDE (test code = 2215) 105 MEQ/L CARBON DIOXIDE (test code = 26 MEQ/L 2205) CALCIUM (test code = 2209) 8.9 MG/DL PROTEIN, TOTAL (test code = 6.5 G/DL 2228) ALBUMIN (test code = 2201) 3.9 G/DL CALC GLOBULIN (test code = 2.6 G/DL 2240) CALC A/G RATIO (test code = 1.5 RATIO 2234) BILIRUBIN, TOTAL (test code = 0.4 MG/DL 2206) ALKALINE PHOSPHATASE (test 112 U/L code = 2204) AST (test code = 2218) 24 U/L ALT (test code = 2219) 15 U/L [id number] 03:32:33 Test Item Value Reference Range Interpretation Comments POTASSIUM (test code 3.6 MEQ/L 3.5-5.4 UNLESS OTHERWISE = 2228) INDICATED, ALL TESTING PERFORMED [facility] [address] [place] [address] 4 LABORATORY DIRE CTOR: Abigail VERDEIA NUMBER [id number] [place] [id number] 00:00:00 Test Item Value Reference Range Interpretation Comments POTASSIUM (test code = 2228) 3.6 MEQ/L [id number] 00:00:00 Test Item Value Reference Range Interpretation Comments POTASSIUM (test code = 2228) 3.6 MEQ/L [id number] 00:00:00 Test Item Value Reference Range Interpretation Comments POTASSIUM (test code = 2228) 3.6 MEQ/L [id number] 00:00:00 Test Item Value Reference Range Interpretation Comments POTASSIUM (test code = 2228) 3.6 MEQ/L [id number] 00:00:00 Test Item Value Reference Range Interpretation Comments POTASSIUM (test code = 2228) 3.6 MEQ/L [id number] 00:00:00 Test Item Value Reference Range Interpretation Comments POTASSIUM (test code = 2228) 3.6 MEQ/L [id number] 00:00:00 Test Item Value Reference Range Interpretation Comments POTASSIUM (test code = 2228) 3.6 MEQ/L [id number] 00:00:00 Test Item Value Reference Range Interpretation Comments POTASSIUM (test code = 2228) 3.6 MEQ/L [id number] 03:53:32 Test Item Value Reference Range Interpretation Comments POTASSIUM (test code 3.4 MEQ/L 3.5-5.4 L UNLESS OTHERWISE = 2228) INDICATED, ALL TESTING PERFORMED [facility] [address] [place] [address] 4 LABORATORY DIRE CTOR: SKYLAR CHISHOLM M.D. CLIA NUMBER [id number] [place]. [id number] 00:00:00 Test Item Value Reference Range Interpretation Comments POTASSIUM (test code = 2228) 3.4 MEQ/L [id number] 00:00:00 Test Item Value Reference Range Interpretation Comments POTASSIUM (test code = 2228) 3.4 MEQ/L [id number] 00:00:00 Test Item Value Reference Range Interpretation Comments POTASSIUM (test code = 2228) 3.4 MEQ/L [id number] 00:00:00 Test Item Value Reference Range Interpretation Comments POTASSIUM (test code = 2228) 3.4 MEQ/L [id number] 00:00:00 Test Item Value Reference Range Interpretation Comments POTASSIUM (test code = 2228) 3.4 MEQ/L [id number] 00:00:00 Test Item Value Reference Range Interpretation Comments POTASSIUM (test code = 2228) 3.4 MEQ/L [id number] 00:00:00 Test Item Value Reference Range Interpretation Comments POTASSIUM (test code = 2228) 3.4 MEQ/L [id number] 00:00:00 Test Item Value Reference Range Interpretation Comments POTASSIUM (test code = 2228) 3.4 MEQ/L HEMOGLOBIN [id number] 06:16:49 Test Item Value Reference Range Interpretation Comments HEMOGLOBIN A1c (test 7.5 % 4.2-5.6 H [employer] code = 46956) ASSOCIATION [employer] FOR HGB A1C: PREDIABETES/INC REASED [...] ALTERN ATE TESTING OR LABORATORY C ONSULTATION. UNLESS OTHERWIS E INDICATED, ALL TESTING PER FORMED ATCLINICAL PATH [facility], [facility]. [address] [place] [address] LABORATORY DIRE CTOR: SKYLAR HOFF M.D. CLIA NUMBER [id number] [facility] [place]. [id number] COMPREHENSIVE METABOLIC [id number] 05:40:53 Test Item Value Reference Range Interpretation Comments GLUCOSE (test code = 110 MG/DL 70-99 H 2216) BUN (test code = 6 MG/DL 6-20 2207) CREATININE (test 0.66 MG/DL 0.60-1.30 code = 2214) eGFR (2020 CKD-EPI) 101 >60 (test code = 64397) ML/MIN/1.73 CALC BUN/CREAT (test 9 RATIO 6-28 code = 2235) SODIUM (test code = 143 MEQ/L 424-002 9044) POTASSIUM (test code 3.2 MEQ/L 3.5-5.4 L = 8) CHLORIDE (test code 103 MEQ/L 95-107 = 2215) CARBON DIOXIDE (test 28 MEQ/L 19-31 code = 2206) CALCIUM (test code = 8.5 MG/DL 8.5-10.5 2208) PROTEIN, TOTAL (test 6.7 G/DL 6.1-8.3 code = 222) ALBUMIN (test code = 3.8 G/DL 3.5-5.2 2200) CALC GLOBULIN (test 2.9 G/DL 1.9-3.7 code = 2240) CALC A/G RATIO (test 1.3 RATIO 1.0-2.6 code = 2234) BILIRUBIN, TOTAL 0.4 MG/DL See_Comment [Automated message] (test code = 2206) The syste m which generated this result transmit magda reference range : <=1.2. The refe rence range was not u sed to interpret th is result as normal/abnormal . ALKALINE PHOSPHATASE 115 U/L 40-136 (test code = 2203) AST (test code = 12 U/L 9-40 2217) ALT (test code = 13 U/L 5-40 2218) LIPID [id number] 05:40:53 Test Item Value Reference Range Interpretation [...] MOREINFORMATION , SEE CLIENT ANNOUNCE MENT AT [email or web address] LDL/HDL 1.31 RATIO <3.22 (test code = 2238) COMPREHENSIVE METABOLIC [id number] 00:00:00 Test Item Value Reference Range Interpretation Comments GLUCOSE (test code = 2217) 110 MG/DL BUN (test code = 2207) 6 MG/DL CREATININE (test code = 2214) 0.66 MG/DL eGFR (2020 CKD-EPI) (test 101 ML/MIN/1.73 code = 81434) CALC BUN/CREAT (test code = 9 RATIO 2234) SODIUM (test code = 2231) 143 MEQ/L POTASSIUM (test code = 2228) 3.2 MEQ/L CHLORIDE (test code = 2215) 103 MEQ/L CARBON DIOXIDE (test code = 28 MEQ/L 2206) CALCIUM (test code = 2209) 8.5 MG/DL PROTEIN, TOTAL (test code = 6.7 G/DL 222) ALBUMIN (test code = 2201) 3.8 G/DL CALC GLOBULIN (test code = 2.9 G/DL 2240) CALC A/G RATIO (test code = 1.3 RATIO 2234) BILIRUBIN, TOTAL (test code = 0.4 MG/DL 2206) ALKALINE PHOSPHATASE (test 115 U/L code = 2204) AST (test code = 2218) 12 U/L ALT (test code = 2219) 13 U/L COMPREHENSIVE METABOLIC [id number] 00:00:00 Test Item Value Reference Range Interpretation Comments GLUCOSE (test code = 2217) 110 MG/DL BUN (test code = 2208) 6 MG/DL CREATININE (test code = 2214) 0.66 MG/DL eGFR (2020 CKD-EPI) (test 101 ML/MIN/1.73 code = 70393) CALC BUN/CREAT (test code = 9 RATIO 2235) SODIUM (test code = 2231) 143 MEQ/L POTASSIUM (test code = 2228) 3.2 MEQ/L CHLORIDE (test code = 2215) 103 MEQ/L CARBON DIOXIDE (test code = 28 MEQ/L 2206) CALCIUM (test code = 2209) 8.5 MG/DL PROTEIN, TOTAL (test code = 6.7 G/DL 2228) ALBUMIN (test code = 2201) 3.8 G/DL CALC GLOBULIN (test code = 2.9 G/DL 2240) CALC A/G RATIO (test code = 1.3 RATIO 2234) BILIRUBIN, TOTAL (test code = 0.4 MG/DL 2206) ALKALINE PHOSPHATASE (test 115 U/L code = 2204) AST (test code = 2218) 12 U/L ALT (test code = 2219) 13 U/L LIPID [id number] 00:00:00 Test Item Value Reference Range Interpretation Comments CHOLESTEROL (test code = 2210) 107 MG/DL TRIGLYCERIDES (test code = 2232) 162 MG/DL HDL CHOLESTEROL (test code = 2220) 36 MG/DL CALC LDL CHOL (test code = 2237) 47 MG/DL RISK RATIO LDL/HDL (test code = 1.31 RATIO 2238) LIPID [id number] 00:00:00 Test Item Value Reference Range Interpretation Comments CHOLESTEROL (test code = 2210) 107 MG/DL TRIGLYCERIDES (test code = 2232) 162 MG/DL HDL CHOLESTEROL (test code = 2220) 36 MG/DL CALC LDL CHOL (test code = 2237) 47 MG/DL RISK RATIO LDL/HDL (test code = 1.31 RATIO 2238) HEMOGLOBIN [id number] 00:00:00 Test Item Value Reference Range Interpretation Comments HEMOGLOBIN A1c (test code = 78819) 7.5 % HEMOGLOBIN [id number] 00:00:00 Test Item Value Reference Range Interpretation Comments HEMOGLOBIN A1c (test code = 10066) 7.5 % HEMOGLOBIN [id number] 00:00:00 Test Item Value Reference Range Interpretation Comments HEMOGLOBIN A1c (test code = 55348) 7.5 % COMPREHENSIVE METABOLIC [id number] 00:00:00 Test Item Value Reference Range Interpretation Comments GLUCOSE (test code = 2217) 110 MG/DL BUN (test code = 2208) 6 MG/DL CREATININE (test code = 2214) 0.66 MG/DL eGFR (2020 CKD-EPI) (test 101 ML/MIN/1.73 code = 55591) CALC BUN/CREAT (test code = 9 RATIO 2235) SODIUM (test code = 2231) 143 MEQ/L POTASSIUM (test code = 2228) 3.2 MEQ/L CHLORIDE (test code = 2215) 103 MEQ/L CARBON DIOXIDE (test code = 28 MEQ/L 2205) CALCIUM (test code = 2209) 8.5 MG/DL PROTEIN, TOTAL (test code = 6.7 G/DL 2228) ALBUMIN (test code = 2201) 3.8 G/DL CALC GLOBULIN (test code = 2.9 G/DL 0) CALC A/G RATIO (test code = 1.3 RATIO 2234) BILIRUBIN, TOTAL (test code = 0.4 MG/DL 2206) ALKALINE PHOSPHATASE (test 115 U/L code = 2204) AST (test code = 2218) 12 U/L ALT (test code = 2219) 13 U/L COMPREHENSIVE METABOLIC [id number] 00:00:00 Test Item Value Reference Range Interpretation Comments GLUCOSE (test code = 2217) 110 MG/DL BUN (test code = 2208) 6 MG/DL CREATININE (test code = 2214) 0.66 MG/DL eGFR (2020 CKD-EPI) (test 101 ML/MIN/1.73 code = 11835) CALC BUN/CREAT (test code = 9 RATIO 2235) SODIUM (test code = 2231) 143 MEQ/L POTASSIUM (test code = 2228) 3.2 MEQ/L CHLORIDE (test code = 2215) 103 MEQ/L CARBON DIOXIDE (test code = 28 MEQ/L 2205) CALCIUM (test code = 2209) 8.5 MG/DL PROTEIN, TOTAL (test code = 6.7 G/DL 2228) ALBUMIN (test code = 220) 3.8 G/DL CALC GLOBULIN (test code = 2.9 G/DL 2239) CALC A/G RATIO (test code = 1.3 RATIO 2233) BILIRUBIN, TOTAL (test code = 0.4 MG/DL 2206) ALKALINE PHOSPHATASE (test 115 U/L code = 2204) AST (test code = 2218) 12 U/L ALT (test code = 2219) 13 U/L LIPID [id number] 00:00:00 Test Item Value Reference Range Interpretation Comments CHOLESTEROL (test code = 2210) 107 MG/DL TRIGLYCERIDES (test code = 2232) 162 MG/DL HDL CHOLESTEROL (test code = 2220) 36 MG/DL CALC LDL CHOL (test code = 2237) 47 MG/DL RISK RATIO LDL/HDL (test code = 1.31 RATIO 2238) LIPID [id number] 00:00:00 Test Item Value Reference Range Interpretation Comments CHOLESTEROL (test code = 2210) 107 MG/DL TRIGLYCERIDES (test code = 2232) 162 MG/DL HDL CHOLESTEROL (test code = 2220) 36 MG/DL CALC LDL CHOL (test code = 2237) 47 MG/DL RISK RATIO LDL/HDL (test code = 1.31 RATIO 2238) HEMOGLOBIN [id number] 00:00:00 Test Item Value Reference Range Interpretation Comments HEMOGLOBIN A1c (test code = 96785) 7.5 % HEMOGLOBIN [id number] 00:00:00 Test Item Value Reference Range Interpretation Comments HEMOGLOBIN A1c (test code = 62215) 7.5 % HEMOGLOBIN [id number] 00:00:00 Test Item Value Reference Range Interpretation Comments HEMOGLOBIN A1c (test code = 39450) 7.5 % COMPREHENSIVE METABOLIC [id number] 00:00:00 Test Item Value Reference Range Interpretation Comments GLUCOSE (test code = 2217) 110 MG/DL BUN (test code = 2208) 6 MG/DL CREATININE (test code = 2214) 0.66 MG/DL eGFR (2020 CKD-EPI) (test 101 ML/MIN/1.73 code = 89164) CALC BUN/CREAT (test code = 9 RATIO 2235) SODIUM (test code = 2231) 143 MEQ/L POTASSIUM (test code = 2228) 3.2 MEQ/L CHLORIDE (test code = 2215) 103 MEQ/L CARBON DIOXIDE (test code = 28 MEQ/L 2205) CALCIUM (test code = 2209) 8.5 MG/DL PROTEIN, TOTAL (test code = 6.7 G/DL 2228) ALBUMIN (test code = 2201) 3.8 G/DL CALC GLOBULIN (test code = 2.9 G/DL 2239) CALC A/G RATIO (test code = 1.3 RATIO 2234) BILIRUBIN, TOTAL (test code = 0.4 MG/DL 2206) ALKALINE PHOSPHATASE (test 115 U/L code = 2204) AST (test code = 2218) 12 U/L ALT (test code = 2219) 13 U/L COMPREHENSIVE METABOLIC [id number] 00:00:00 Test Item Value Reference Range Interpretation Comments GLUCOSE (test code = 2217) 110 MG/DL BUN (test code = 2208) 6 MG/DL CREATININE (test code = 2214) 0.66 MG/DL eGFR (2020 CKD-EPI) (test 101 ML/MIN/1.73 code = 70012) CALC BUN/CREAT (test code = 9 RATIO 2235) SODIUM (test code = 2231) 143 MEQ/L POTASSIUM (test code = 2228) 3.2 MEQ/L CHLORIDE (test code = 2215) 103 MEQ/L CARBON DIOXIDE (test code = 28 MEQ/L 220) CALCIUM (test code = 2209) 8.5 MG/DL PROTEIN, TOTAL (test code = 6.7 G/DL 2228) ALBUMIN (test code = 2201) 3.8 G/DL CALC GLOBULIN (test code = 2.9 G/DL 0) CALC A/G RATIO (test code = 1.3 RATIO 2234) BILIRUBIN, TOTAL (test code = 0.4 MG/DL 2206) ALKALINE PHOSPHATASE (test 115 U/L code = 2204) AST (test code = 2218) 12 U/L ALT (test code = 2219) 13 U/L LIPID [id number] 00:00:00 Test Item Value Reference Range Interpretation Comments CHOLESTEROL (test code = 2210) 107 MG/DL TRIGLYCERIDES (test code = 2232) 162 MG/DL HDL CHOLESTEROL (test code = 2220) 36 MG/DL CALC LDL CHOL (test code = 2237) 47 MG/DL RISK RATIO LDL/HDL (test code = 1.31 RATIO 2238) LIPID [id number] 00:00:00 Test Item Value Reference Range Interpretation Comments CHOLESTEROL (test code = 2210) 107 MG/DL TRIGLYCERIDES (test code = 2232) 162 MG/DL HDL CHOLESTEROL (test code = 2220) 36 MG/DL CALC LDL CHOL (test code = 2237) 47 MG/DL RISK RATIO LDL/HDL (test code = 1.31 RATIO 2238) HEMOGLOBIN [id number] 00:00:00 Test Item Value Reference Range Interpretation Comments HEMOGLOBIN A1c (test code = 55057) 7.5 % HEMOGLOBIN [id number] 00:00:00 Test Item Value Reference Range Interpretation Comments HEMOGLOBIN A1c (test code = 19401) 7.5 % HEMOGLOBIN [id number] 00:00:00 Test Item Value Reference Range Interpretation Comments HEMOGLOBIN A1c (test code = 38570) 7.5 % COMPREHENSIVE METABOLIC [id number] 00:00:00 Test Item Value Reference Range Interpretation Comments GLUCOSE (test code = 2217) 110 MG/DL BUN (test code = 2208) 6 MG/DL CREATININE (test code = 2214) 0.66 MG/DL eGFR (2020 CKD-EPI) (test 101 ML/MIN/1.73 code = 35212) CALC BUN/CREAT (test code = 9 RATIO 2235) SODIUM (test code = 2231) 143 MEQ/L POTASSIUM (test code = 2228) 3.2 MEQ/L CHLORIDE (test code = 2215) 103 MEQ/L CARBON DIOXIDE (test code = 28 MEQ/L 2206) CALCIUM (test code = 2209) 8.5 MG/DL PROTEIN, TOTAL (test code = 6.7 G/DL 222) ALBUMIN (test code = 2201) 3.8 G/DL CALC GLOBULIN (test code = 2.9 G/DL 2240) CALC A/G RATIO (test code = 1.3 RATIO 2234) BILIRUBIN, TOTAL (test code = 0.4 MG/DL 2206) ALKALINE PHOSPHATASE (test 115 U/L code = 2204) AST (test code = 2218) 12 U/L ALT (test code = 2219) 13 U/L COMPREHENSIVE METABOLIC [id number] 00:00:00 Test Item Value Reference Range Interpretation Comments GLUCOSE (test code = 2217) 110 MG/DL BUN (test code = 2208) 6 MG/DL CREATININE (test code = 2214) 0.66 MG/DL eGFR (2020 CKD-EPI) (test 101 ML/MIN/1.73 code = 34391) CALC BUN/CREAT (test code = 9 RATIO 2235) SODIUM (test code = 2231) 143 MEQ/L POTASSIUM (test code = 2228) 3.2 MEQ/L CHLORIDE (test code = 2215) 103 MEQ/L CARBON DIOXIDE (test code = 28 MEQ/L 2205) CALCIUM (test code = 2209) 8.5 MG/DL PROTEIN, TOTAL (test code = 6.7 G/DL 2228) ALBUMIN (test code = 2201) 3.8 G/DL CALC GLOBULIN (test code = 2.9 G/DL 2240) CALC A/G RATIO (test code = 1.3 RATIO 2234) BILIRUBIN, TOTAL (test code = 0.4 MG/DL 2206) ALKALINE PHOSPHATASE (test 115 U/L code = 2204) AST (test code = 2218) 12 U/L ALT (test code = 2219) 13 U/L LIPID [id number] 00:00:00 Test Item Value Reference Range Interpretation Comments CHOLESTEROL (test code = 2210) 107 MG/DL TRIGLYCERIDES (test code = 2232) 162 MG/DL HDL CHOLESTEROL (test code = 2220) 36 MG/DL CALC LDL CHOL (test code = 2237) 47 MG/DL RISK RATIO LDL/HDL (test code = 1.31 RATIO 2238) LIPID [id number] 00:00:00 Test Item Value Reference Range Interpretation Comments CHOLESTEROL (test code = 2210) 107 MG/DL TRIGLYCERIDES (test code = 2232) 162 MG/DL HDL CHOLESTEROL (test code = 2220) 36 MG/DL CALC LDL CHOL (test code = 2237) 47 MG/DL RISK RATIO LDL/HDL (test code = 1.31 RATIO 2238) HEMOGLOBIN [id number] 00:00:00 Test Item Value Reference Range Interpretation Comments HEMOGLOBIN A1c (test code = 29487) 7.5 % HEMOGLOBIN [id number] 00:00:00 Test Item Value Reference Range Interpretation Comments HEMOGLOBIN A1c (test code = 52271) 7.5 % HEMOGLOBIN [id number] 00:00:00 Test Item Value Reference Range Interpretation Comments HEMOGLOBIN A1c (test code = 64839) 7.5 % COMPREHENSIVE METABOLIC [id number] 00:00:00 Test Item Value Reference Range Interpretation Comments GLUCOSE (test code = 2217) 110 MG/DL BUN (test code = 2208) 6 MG/DL CREATININE (test code = 2214) 0.66 MG/DL eGFR (2020 CKD-EPI) (test 101 ML/MIN/1.73 code = 05659) CALC BUN/CREAT (test code = 9 RATIO 2235) SODIUM (test code = 2231) 143 MEQ/L POTASSIUM (test code = 2228) 3.2 MEQ/L CHLORIDE (test code = 2215) 103 MEQ/L CARBON DIOXIDE (test code = 28 MEQ/L 2205) CALCIUM (test code = 2209) 8.5 MG/DL PROTEIN, TOTAL (test code = 6.7 G/DL 2228) ALBUMIN (test code = 2201) 3.8 G/DL CALC GLOBULIN (test code = 2.9 G/DL 0) CALC A/G RATIO (test code = 1.3 RATIO 4) BILIRUBIN, TOTAL (test code = 0.4 MG/DL 2206) ALKALINE PHOSPHATASE (test 115 U/L code = 2204) AST (test code = 2218) 12 U/L ALT (test code = 2219) 13 U/L COMPREHENSIVE METABOLIC [id number] 00:00:00 Test Item Value Reference Range Interpretation Comments GLUCOSE (test code = 2217) 110 MG/DL BUN (test code = 2208) 6 MG/DL CREATININE (test code = 2214) 0.66 MG/DL eGFR (2020 CKD-EPI) (test 101 ML/MIN/1.73 code = 85950) CALC BUN/CREAT (test code = 9 RATIO 2235) SODIUM (test code = 2231) 143 MEQ/L POTASSIUM (test code = 2228) 3.2 MEQ/L CHLORIDE (test code = 2215) 103 MEQ/L CARBON DIOXIDE (test code = 28 MEQ/L 2205) CALCIUM (test code = 2209) 8.5 MG/DL PROTEIN, TOTAL (test code = 6.7 G/DL 2228) ALBUMIN (test code = 220) 3.8 G/DL CALC GLOBULIN (test code = 2.9 G/DL 2239) CALC A/G RATIO (test code = 1.3 RATIO 2233) BILIRUBIN, TOTAL (test code = 0.4 MG/DL 2206) ALKALINE PHOSPHATASE (test 115 U/L code = 2204) AST (test code = 2218) 12 U/L ALT (test code = 2219) 13 U/L LIPID [id number] 00:00:00 Test Item Value Reference Range Interpretation Comments CHOLESTEROL (test code = 2210) 107 MG/DL TRIGLYCERIDES (test code = 2232) 162 MG/DL HDL CHOLESTEROL (test code = 2220) 36 MG/DL CALC LDL CHOL (test code = 2237) 47 MG/DL RISK RATIO LDL/HDL (test code = 1.31 RATIO 2238) LIPID [id number] 00:00:00 Test Item Value Reference Range Interpretation Comments CHOLESTEROL (test code = 2210) 107 MG/DL TRIGLYCERIDES (test code = 2232) 162 MG/DL HDL CHOLESTEROL (test code = 2220) 36 MG/DL CALC LDL CHOL (test code = 2237) 47 MG/DL RISK RATIO LDL/HDL (test code = 1.31 RATIO 2238) HEMOGLOBIN [id number] 00:00:00 Test Item Value Reference Range Interpretation Comments HEMOGLOBIN A1c (test code = 55957) 7.5 % HEMOGLOBIN [id number] 00:00:00 Test Item Value Reference Range Interpretation Comments HEMOGLOBIN A1c (test code = 78343) 7.5 % HEMOGLOBIN [id number] 00:00:00 Test Item Value Reference Range Interpretation Comments HEMOGLOBIN A1c (test code = 09394) 7.5 % ALBUMIN/CREATININE RATIO, URINE, [id number] 06:54:51 Test Item Value Reference Range Interpretation Comments CREATININE, URINE, 90.9 MG/DL NOT ESTAB RANDOM (test code = 2072) ALBUMIN, URINE, 1.8 MG/DL NOT ESTAB RANDOM (test code = 06656) CALC 20 MG/G <30 Note: Albumin/ Creatinine ALBUMIN/CREAT, RND ratio ref erence interval (test code = [place] [address]) guidelines. UNL ESS OTHERWISE INDIC ATED, ALL TESTING PERFORM [facility] [address] [place] [address] LABORATORY DIRE CTOR: Diaz [place]. CLIA NUMBER [id number] CAP ACCREDITATION N O. [id number] LIPID [id number] 04:28:20 Test Item Value Reference Range Interpretation [...] MOREINFORMATION , SEE CLIENT ANNOUNCE MENT AT [email or web address] RISK RATIO LDL/HDL 1.61 RATIO <3.22 (test code = 2238) COMPREHENSIVE METABOLIC [id number] 04:28:20 Test Item Value Reference Range Interpretation Comments GLUCOSE (test code = 210 MG/DL 70-99 H 2216) BUN (test code = 7 MG/DL 11-01) CREATININE (test 0.65 MG/DL 0.60-1.30 code = 2214) eGFR (2020 CKD-EPI) 101 >60 (test code = 62741) ML/MIN/1.73 CALC BUN/CREAT (test 11 RATIO 11-09 code = 2235) SODIUM (test code = 139 MEQ/L 434-091 1209) POTASSIUM (test code 3.6 MEQ/L 3.5-5.4 = 2227) CHLORIDE (test code 102 MEQ/L 95-107 = 2214) CARBON DIOXIDE (test 24 MEQ/L 19-31 code = 220) CALCIUM (test code = 9.3 MG/DL 8.5-10.5 2208) PROTEIN, TOTAL (test 7.3 G/DL 6.1-8.3 code = 2228) ALBUMIN (test code = 4.0 G/DL 3.5-5.2 2200) CALC GLOBULIN (test 3.3 G/DL 1.9-3.7 code = 2239) CALC A/G RATIO (test 1.2 RATIO 1.0-2.6 code = 2233) BILIRUBIN, TOTAL 0.4 MG/DL See_Comment [Automated message] (test code = 2206) The syste [employer] which generated this result transmit magda reference range : <=1.2. The refe rence range was not u sed to interpret th is result as normal/abnormal . ALKALINE PHOSPHATASE 152 U/L 40-136 H (test code = 2203) AST (test code = 11 U/L 9-40 2217) ALT (test code = 12 U/L 5-40 2218) HEMOGLOBIN [id number] 02:34:28 Test Item Value Reference Range Interpretation Comments HEMOGLOBIN A1c (test 8.4 % 4.2-5.6 H [employer] code = 09909) ASSOCIATION [employer] FOR HGB A1C: PREDIABETES/INC REASED [...] ATE TESTING OR LABORATORY C ONSULTATION. HEMOGLOBIN [id number] 00:00:00 Test Item Value Reference Range Interpretation Comments HEMOGLOBIN A1c (test code = 87916) 8.4 % HEMOGLOBIN [id number] 00:00:00 Test Item Value Reference Range Interpretation Comments HEMOGLOBIN A1c (test code = 75929) 8.4 % LIPID [id number] 00:00:00 Test Item Value Reference Range Interpretation Comments CHOLESTEROL (test code = 2210) 124 MG/DL TRIGLYCERIDES (test code = 2232) 176 MG/DL HDL CHOLESTEROL (test code = 2220) 38 MG/DL CALC LDL CHOL (test code = 2237) 61 MG/DL RISK RATIO LDL/HDL (test code = 1.61 RATIO 2238) HEMOGLOBIN [id number] 00:00:00 Test Item Value Reference Range Interpretation Comments HEMOGLOBIN A1c (test code = 63121) 8.4 % HEMOGLOBIN [id number] 00:00:00 Test Item Value Reference Range Interpretation Comments HEMOGLOBIN A1c (test code = 87361) 8.4 % HEMOGLOBIN [id number] 00:00:00 Test Item Value Reference Range Interpretation Comments HEMOGLOBIN A1c (test code = 20585) 8.4 % LIPID [id number] 00:00:00 Test Item Value Reference Range Interpretation Comments CHOLESTEROL (test code = 2210) 124 MG/DL TRIGLYCERIDES (test code = 2232) 176 MG/DL HDL CHOLESTEROL (test code = 2220) 38 MG/DL CALC LDL CHOL (test code = 2237) 61 MG/DL RISK RATIO LDL/HDL (test code = 1.61 RATIO 2238) LIPID [id number] 00:00:00 Test Item Value Reference Range Interpretation Comments CHOLESTEROL (test code = 2210) 124 MG/DL TRIGLYCERIDES (test code = 2232) 176 MG/DL HDL CHOLESTEROL (test code = 2220) 38 MG/DL CALC LDL CHOL (test code = 2237) 61 MG/DL RISK RATIO LDL/HDL (test code = 1.61 RATIO 2238) COMPREHENSIVE METABOLIC [id number] 00:00:00 Test Item Value Reference Range Interpretation Comments GLUCOSE (test code = 2217) 210 MG/DL BUN (test code = 2208) 7 MG/DL CREATININE (test code = 2214) 0.65 MG/DL eGFR (2020 CKD-EPI) (test 101 ML/MIN/1.73 code = 15157) CALC BUN/CREAT (test code = 11 RATIO 2235) SODIUM (test code = 2231) 139 MEQ/L POTASSIUM (test code = 2228) 3.6 MEQ/L CHLORIDE (test code = 2215) 102 MEQ/L CARBON DIOXIDE (test code = 24 MEQ/L 2206) CALCIUM (test code = 2209) 9.3 MG/DL PROTEIN, TOTAL (test code = 7.3 G/DL 222) ALBUMIN (test code = 2201) 4.0 G/DL CALC GLOBULIN (test code = 3.3 G/DL 2240) CALC A/G RATIO (test code = 1.2 RATIO 2234) BILIRUBIN, TOTAL (test code = 0.4 MG/DL 2206) ALKALINE PHOSPHATASE (test 152 U/L code = 2204) AST (test code = 2218) 11 U/L ALT (test code = 2219) 12 U/L COMPREHENSIVE METABOLIC [id number] 00:00:00 Test Item Value Reference Range Interpretation Comments GLUCOSE (test code = 2217) 210 MG/DL BUN (test code = 2208) 7 MG/DL CREATININE (test code = 2214) 0.65 MG/DL eGFR (2020 CKD-EPI) (test 101 ML/MIN/1.73 code = 72933) CALC BUN/CREAT (test code = 11 RATIO [...] CALC GLOBULIN (test code = 3.3 G/DL 2240) CALC A/G RATIO (test code = 1.2 RATIO 2234) BILIRUBIN, TOTAL (test code = 0.4 MG/DL 2206) ALKALINE PHOSPHATASE (test 152 U/L code = 2204) AST (test code = 2218) 11 U/L ALT (test code = 2219) 12 U/L MICROALBUMIN/CREATININE, RANDOM AND [id number] 00:00:00 Test Item Value Reference Range Interpretation Comments CREATININE, URINE, RANDOM (test 90.9 MG/DL code = 2072) ALBUMIN, URINE, RANDOM (test code 1.8 MG/DL = 60590) CALC ALBUMIN/CREAT, RND (test code 20 MG/G = 53119) COMPREHENSIVE METABOLIC [id number] 00:00:00 Test Item Value Reference Range Interpretation Comments GLUCOSE (test code = 2217) 210 MG/DL BUN (test code = 2208) 7 MG/DL CREATININE (test code = 2214) 0.65 MG/DL eGFR (2020 CKD-EPI) (test 101 ML/MIN/1.73 code = 10253) CALC BUN/CREAT (test code = 11 RATIO [...] A/G RATIO (test code = 1.2 RATIO 2233) BILIRUBIN, TOTAL (test code = 0.4 MG/DL 2206) ALKALINE PHOSPHATASE (test 152 U/L code = 2204) AST (test code = 2218) 11 U/L ALT (test code = 2219) 12 U/L MICROALBUMIN/CREATININE, RANDOM AND [id number] 00:00:00 Test Item Value Reference Range Interpretation Comments CREATININE, URINE, RANDOM (test 90.9 MG/DL code = 2072) ALBUMIN, URINE, RANDOM (test code 1.8 MG/DL = 48991) CALC ALBUMIN/CREAT, RND (test code 20 MG/G = 96138) MICROALBUMIN/CREATININE, RANDOM AND [id number] 00:00:00 Test Item Value Reference Range Interpretation Comments CREATININE, URINE, RANDOM (test 90.9 MG/DL code = 2072) ALBUMIN, URINE, RANDOM (test code 1.8 MG/DL = 10776) CALC ALBUMIN/CREAT, RND (test code 20 MG/G = 56471) HEMOGLOBIN [id number] 00:00:00 Test Item Value Reference Range Interpretation Comments HEMOGLOBIN A1c (test code = 11135) 8.4 % HEMOGLOBIN [id number] 00:00:00 Test Item Value Reference Range Interpretation Comments HEMOGLOBIN A1c (test code = 57858) 8.4 % HEMOGLOBIN [id number] 00:00:00 Test Item Value Reference Range Interpretation Comments HEMOGLOBIN A1c (test code = 19809) 8.4 % LIPID [id number] 00:00:00 Test Item Value Reference Range Interpretation Comments CHOLESTEROL (test code = 2210) 124 MG/DL TRIGLYCERIDES (test code = 2232) 176 MG/DL HDL CHOLESTEROL (test code = 2220) 38 MG/DL CALC LDL CHOL (test code = 2237) 61 MG/DL RISK RATIO LDL/HDL (test code = 1.61 RATIO 2238) LIPID [id number] 00:00:00 Test Item Value Reference Range Interpretation Comments CHOLESTEROL (test code = 2210) 124 MG/DL TRIGLYCERIDES (test code = 2232) 176 MG/DL HDL CHOLESTEROL (test code = 2220) 38 MG/DL CALC LDL CHOL (test code = 2237) 61 MG/DL RISK RATIO LDL/HDL (test code = 1.61 RATIO 2238) COMPREHENSIVE METABOLIC [id number] 00:00:00 Test Item Value Reference Range Interpretation Comments GLUCOSE (test code = 2217) 210 MG/DL BUN (test code = 2208) 7 MG/DL CREATININE (test code = 2214) 0.65 MG/DL eGFR (2020 CKD-EPI) (test 101 ML/MIN/1.73 code = 38936) CALC BUN/CREAT (test code = 11 RATIO [...] CALC GLOBULIN (test code = 3.3 G/DL 2240) CALC A/G RATIO (test code = 1.2 RATIO 2234) BILIRUBIN, TOTAL (test code = 0.4 MG/DL 2206) ALKALINE PHOSPHATASE (test 152 U/L code = 2204) AST (test code = 2218) 11 U/L ALT (test code = 2219) 12 U/L COMPREHENSIVE METABOLIC [id number] 00:00:00 Test Item Value Reference Range Interpretation Comments GLUCOSE (test code = 2217) 210 MG/DL BUN (test code = 2208) 7 MG/DL CREATININE (test code = 2214) 0.65 MG/DL eGFR (2020 CKD-EPI) (test 101 ML/MIN/1.73 code = 22206) CALC BUN/CREAT (test code = 11 RATIO 2235) SODIUM (test code = 2231) 139 MEQ/L POTASSIUM (test code = 2228) 3.6 MEQ/L CHLORIDE (test code = 2215) 102 MEQ/L CARBON DIOXIDE (test code = 24 MEQ/L 2205) CALCIUM (test code = 2209) 9.3 MG/DL PROTEIN, TOTAL (test code = 7.3 G/DL 2228) ALBUMIN (test code = 220) 4.0 G/DL CALC GLOBULIN (test code = 3.3 G/DL 2239) CALC A/G RATIO (test code = 1.2 RATIO 2233) BILIRUBIN, TOTAL (test code = 0.4 MG/DL 2206) ALKALINE PHOSPHATASE (test 152 U/L code = 2204) AST (test code = 2218) 11 U/L ALT (test code = 2219) 12 U/L MICROALBUMIN/CREATININE, RANDOM AND [id number] 00:00:00 Test Item Value Reference Range Interpretation Comments CREATININE, URINE, RANDOM (test 90.9 MG/DL code = 2072) ALBUMIN, URINE, RANDOM (test code 1.8 MG/DL = 80392) CALC ALBUMIN/CREAT, RND (test code 20 MG/G = 30567) MICROALBUMIN/CREATININE, RANDOM AND [id number] 00:00:00 Test Item Value Reference Range Interpretation Comments CREATININE, URINE, RANDOM (test 90.9 MG/DL code = 2072) ALBUMIN, URINE, RANDOM (test code 1.8 MG/DL = 04983) CALC ALBUMIN/CREAT, RND (test code 20 MG/G = 11835) HEMOGLOBIN [id number] 00:00:00 Test Item Value Reference Range Interpretation Comments HEMOGLOBIN A1c (test code = 89397) 8.4 % HEMOGLOBIN [id number] 00:00:00 Test Item Value Reference Range Interpretation Comments HEMOGLOBIN A1c (test code = 73619) 8.4 % HEMOGLOBIN [id number] 00:00:00 Test Item Value Reference Range Interpretation Comments HEMOGLOBIN A1c (test code = 35072) 8.4 % LIPID [id number] 00:00:00 Test Item Value Reference Range Interpretation Comments CHOLESTEROL (test code = 2210) 124 MG/DL TRIGLYCERIDES (test code = 2232) 176 MG/DL HDL CHOLESTEROL (test code = 2220) 38 MG/DL CALC LDL CHOL (test code = 2237) 61 MG/DL RISK RATIO LDL/HDL (test code = 1.61 RATIO 2238) LIPID [id number] 00:00:00 Test Item Value Reference Range Interpretation Comments CHOLESTEROL (test code = 2210) 124 MG/DL TRIGLYCERIDES (test code = 2232) 176 MG/DL HDL CHOLESTEROL (test code = 2220) 38 MG/DL CALC LDL CHOL (test code = 2237) 61 MG/DL RISK RATIO LDL/HDL (test code = 1.61 RATIO 2238) COMPREHENSIVE METABOLIC [id number] 00:00:00 Test Item Value Reference Range Interpretation Comments GLUCOSE (test code = 2217) 210 MG/DL BUN (test code = 2208) 7 MG/DL CREATININE (test code = 2214) 0.65 MG/DL eGFR (2020 CKD-EPI) (test 101 ML/MIN/1.73 code = 55543) CALC BUN/CREAT (test code = 11 RATIO [...] CALC GLOBULIN (test code = 3.3 G/DL 2240) CALC A/G RATIO (test code = 1.2 RATIO 2234) BILIRUBIN, TOTAL (test code = 0.4 MG/DL 2206) ALKALINE PHOSPHATASE (test 152 U/L code = 2204) AST (test code = 2218) 11 U/L ALT (test code = 2219) 12 U/L COMPREHENSIVE METABOLIC [id number] 00:00:00 Test Item Value Reference Range Interpretation Comments GLUCOSE (test code = 2217) 210 MG/DL BUN (test code = 2208) 7 MG/DL CREATININE (test code = 2214) 0.65 MG/DL eGFR (2020 CKD-EPI) (test 101 ML/MIN/1.73 code = 88252) CALC BUN/CREAT (test code = 11 RATIO 2235) SODIUM (test code = 2231) 139 MEQ/L POTASSIUM (test code = 2228) 3.6 MEQ/L CHLORIDE (test code = 2215) 102 MEQ/L CARBON DIOXIDE (test code = 24 MEQ/L 2205) CALCIUM (test code = 2209) 9.3 MG/DL PROTEIN, TOTAL (test code = 7.3 G/DL 2228) ALBUMIN (test code = 220) 4.0 G/DL CALC GLOBULIN (test code = 3.3 G/DL 2239) CALC A/G RATIO (test code = 1.2 RATIO 2233) BILIRUBIN, TOTAL (test code = 0.4 MG/DL 2206) ALKALINE PHOSPHATASE (test 152 U/L code = 2204) AST (test code = 2218) 11 U/L ALT (test code = 2219) 12 U/L MICROALBUMIN/CREATININE, RANDOM AND [id number] 00:00:00 Test Item Value Reference Range Interpretation Comments CREATININE, URINE, RANDOM (test 90.9 MG/DL code = 2072) ALBUMIN, URINE, RANDOM (test code 1.8 MG/DL = 64229) CALC ALBUMIN/CREAT, RND (test code 20 MG/G = 87863) MICROALBUMIN/CREATININE, RANDOM AND [id number] 00:00:00 Test Item Value Reference Range Interpretation Comments CREATININE, URINE, RANDOM (test 90.9 MG/DL code = 2072) ALBUMIN, URINE, RANDOM (test code 1.8 MG/DL = 55602) CALC ALBUMIN/CREAT, RND (test code 20 MG/G = 78616) HEMOGLOBIN [id number] 00:00:00 Test Item Value Reference Range Interpretation Comments HEMOGLOBIN A1c (test code = 63002) 8.4 % HEMOGLOBIN [id number] 00:00:00 Test Item Value Reference Range Interpretation Comments HEMOGLOBIN A1c (test code = 53823) 8.4 % HEMOGLOBIN [id number] 00:00:00 Test Item Value Reference Range Interpretation Comments HEMOGLOBIN A1c (test code = 32523) 8.4 % LIPID [id number] 00:00:00 Test Item Value Reference Range Interpretation Comments CHOLESTEROL (test code = 2210) 124 MG/DL TRIGLYCERIDES (test code = 2232) 176 MG/DL HDL CHOLESTEROL (test code = 2220) 38 MG/DL CALC LDL CHOL (test code = 2237) 61 MG/DL RISK RATIO LDL/HDL (test code = 1.61 RATIO 2238) LIPID [id number] 00:00:00 Test Item Value Reference Range Interpretation Comments CHOLESTEROL (test code = 2210) 124 MG/DL TRIGLYCERIDES (test code = 2232) 176 MG/DL HDL CHOLESTEROL (test code = 2220) 38 MG/DL CALC LDL CHOL (test code = 2237) 61 MG/DL RISK RATIO LDL/HDL (test code = 1.61 RATIO 2238) COMPREHENSIVE METABOLIC [id number] 00:00:00 Test Item Value Reference Range Interpretation Comments GLUCOSE (test code = 2217) 210 MG/DL BUN (test code = 2208) 7 MG/DL CREATININE (test code = 2214) 0.65 MG/DL eGFR (2020 CKD-EPI) (test 101 ML/MIN/1.73 code = 17682) CALC BUN/CREAT (test code = 11 RATIO [...] CALC GLOBULIN (test code = 3.3 G/DL 2240) CALC A/G RATIO (test code = 1.2 RATIO 2234) BILIRUBIN, TOTAL (test code = 0.4 MG/DL 2206) ALKALINE PHOSPHATASE (test 152 U/L code = 2204) AST (test code = 2218) 11 U/L ALT (test code = 2219) 12 U/L COMPREHENSIVE METABOLIC [id number] 00:00:00 Test Item Value Reference Range Interpretation Comments GLUCOSE (test code = 2217) 210 MG/DL BUN (test code = 2208) 7 MG/DL CREATININE (test code = 2214) 0.65 MG/DL eGFR (2020 CKD-EPI) (test 101 ML/MIN/1.73 code = 19150) CALC BUN/CREAT (test code = 11 RATIO 2235) SODIUM (test code = 2231) 139 MEQ/L POTASSIUM (test code = 2228) 3.6 MEQ/L CHLORIDE (test code = 2215) 102 MEQ/L CARBON DIOXIDE (test code = 24 MEQ/L 2205) CALCIUM (test code = 2209) 9.3 MG/DL PROTEIN, TOTAL (test code = 7.3 G/DL 2228) ALBUMIN (test code = 220) 4.0 G/DL CALC GLOBULIN (test code = 3.3 G/DL 2239) CALC A/G RATIO (test code = 1.2 RATIO 2233) BILIRUBIN, TOTAL (test code = 0.4 MG/DL 2206) ALKALINE PHOSPHATASE (test 152 U/L code = 2204) AST (test code = 2218) 11 U/L ALT (test code = 2219) 12 U/L MICROALBUMIN/CREATININE, RANDOM AND [id number] 00:00:00 Test Item Value Reference Range Interpretation Comments CREATININE, URINE, RANDOM (test 90.9 MG/DL code = 2072) ALBUMIN, URINE, RANDOM (test code 1.8 MG/DL = 45686) CALC ALBUMIN/CREAT, RND (test code 20 MG/G = 01021) MICROALBUMIN/CREATININE, RANDOM AND [id number] 00:00:00 Test Item Value Reference Range Interpretation Comments CREATININE, URINE, RANDOM (test 90.9 MG/DL code = 2072) ALBUMIN, URINE, RANDOM (test code 1.8 MG/DL = 09006) CALC ALBUMIN/CREAT, RND (test code 20 MG/G = 53795) HEMOGLOBIN [id number] 00:00:00 Test Item Value Reference Range Interpretation Comments HEMOGLOBIN A1c (test code = 34333) 8.4 % HEMOGLOBIN [id number] 00:00:00 Test Item Value Reference Range Interpretation Comments HEMOGLOBIN A1c (test code = 92965) 8.4 % HEMOGLOBIN [id number] 00:00:00 Test Item Value Reference Range Interpretation Comments HEMOGLOBIN A1c (test code = 66920) 8.4 % LIPID [id number] 00:00:00 Test Item Value Reference Range Interpretation Comments CHOLESTEROL (test code = 2210) 124 MG/DL TRIGLYCERIDES (test code = 2232) 176 MG/DL HDL CHOLESTEROL (test code = 2220) 38 MG/DL CALC LDL CHOL (test code = 2237) 61 MG/DL RISK RATIO LDL/HDL (test code = 1.61 RATIO 2238) LIPID [id number] 00:00:00 Test Item Value Reference Range Interpretation Comments CHOLESTEROL (test code = 2210) 124 MG/DL TRIGLYCERIDES (test code = 2232) 176 MG/DL HDL CHOLESTEROL (test code = 2220) 38 MG/DL CALC LDL CHOL (test code = 2237) 61 MG/DL RISK RATIO LDL/HDL (test code = 1.61 RATIO 2238) COMPREHENSIVE METABOLIC [id number] 00:00:00 Test Item Value Reference Range Interpretation Comments GLUCOSE (test code = 2217) 210 MG/DL BUN (test code = 2208) 7 MG/DL CREATININE (test code = 2214) 0.65 MG/DL eGFR (2020 CKD-EPI) (test 101 ML/MIN/1.73 code = 92059) CALC BUN/CREAT (test code = 11 RATIO [...] CALC GLOBULIN (test code = 3.3 G/DL 2240) CALC A/G RATIO (test code = 1.2 RATIO 2234) BILIRUBIN, TOTAL (test code = 0.4 MG/DL 2206) ALKALINE PHOSPHATASE (test 152 U/L code = 2204) AST (test code = 2218) 11 U/L ALT (test code = 2219) 12 U/L COMPREHENSIVE METABOLIC [id number] 00:00:00 Test Item Value Reference Range Interpretation Comments GLUCOSE (test code = 2217) 210 MG/DL BUN (test code = 2208) 7 MG/DL CREATININE (test code = 2214) 0.65 MG/DL eGFR (2020 CKD-EPI) (test 101 ML/MIN/1.73 code = 72121) CALC BUN/CREAT (test code = 11 RATIO 2234) SODIUM (test code = 2231) 139 MEQ/L POTASSIUM (test code = 2228) 3.6 MEQ/L CHLORIDE (test code = 2215) 102 MEQ/L CARBON DIOXIDE (test code = 24 MEQ/L 2205) CALCIUM (test code = 2209) 9.3 MG/DL PROTEIN, TOTAL (test code = 7.3 G/DL 2228) ALBUMIN (test code = 220) 4.0 G/DL CALC GLOBULIN (test code = 3.3 G/DL 2239) CALC A/G RATIO (test code = 1.2 RATIO 2233) BILIRUBIN, TOTAL (test code = 0.4 MG/DL 2206) ALKALINE PHOSPHATASE (test 152 U/L code = 220) AST (test code = 2218) 11 U/L ALT (test code = 2219) 12 U/L MICROALBUMIN/CREATININE, RANDOM AND [id number] 00:00:00 Test Item Value Reference Range Interpretation Comments CREATININE, URINE, RANDOM (test 90.9 MG/DL code = 2072) ALBUMIN, URINE, RANDOM (test code 1.8 MG/DL = 64073) CALC ALBUMIN/CREAT, RND (test code 20 MG/G = 98221) MICROALBUMIN/CREATININE, RANDOM AND [id number] 00:00:00 Test Item Value Reference Range Interpretation Comments CREATININE, URINE, RANDOM (test 90.9 MG/DL code = 2072) ALBUMIN, URINE, RANDOM (test code 1.8 MG/DL = 64226) CALC ALBUMIN/CREAT, RND (test code 20 MG/G = 58545) CBC W/AUTO [id number] 00:00:00 Test Item Value Reference Range Interpretation [...] code = 1015) 380 K/UL CBC W/AUTO [id number] 00:00:00 Test Item Value Reference Range Interpretation [...] (test code = 1015) 380 K/UL HEMOGLOBIN [id number] 00:00:00 Test Item Value Reference Range Interpretation Comments HEMOGLOBIN A1c (test code = 97840) 7.2 % CBC W/AUTO [id number] 00:00:00 Test Item Value Reference Range Interpretation [...] code = 1015) 380 K/UL CBC W/AUTO [id number] 00:00:00 Test Item Value Reference Range Interpretation [...] code = 1015) 380 K/UL CBC W/AUTO [id number] 00:00:00 Test Item Value Reference Range Interpretation [...] (test code = 1015) 380 K/UL HEMOGLOBIN [id number] 00:00:00 Test Item Value Reference Range Interpretation Comments HEMOGLOBIN A1c (test code = 69151) 7.2 % HEMOGLOBIN [id number] 00:00:00 Test Item Value Reference Range Interpretation Comments HEMOGLOBIN A1c (test code = 96560) 7.2 % HEMOGLOBIN [id number] 00:00:00 Test Item Value Reference Range Interpretation Comments HEMOGLOBIN A1c (test code = 89040) 7.2 % HEMOGLOBIN [id number] 00:00:00 Test Item Value Reference Range Interpretation Comments HEMOGLOBIN A1c (test code = 72384) 7.2 % LIPID [id number] 00:00:00 Test Item Value Reference Range Interpretation Comments CHOLESTEROL (test code = 2210) 109 MG/DL TRIGLYCERIDES (test code = 2232) 120 MG/DL HDL CHOLESTEROL (test code = 2220) 44 MG/DL CALC LDL CHOL (test code = 2237) 44 MG/DL RISK RATIO LDL/HDL (test code = 1.00 RATIO 2238) LIPID [id number] 00:00:00 Test Item Value Reference Range Interpretation Comments CHOLESTEROL (test code = 2210) 109 MG/DL TRIGLYCERIDES (test code = 2232) 120 MG/DL HDL CHOLESTEROL (test code = 2220) 44 MG/DL CALC LDL CHOL (test code = 2237) 44 MG/DL RISK RATIO LDL/HDL (test code = 1.00 RATIO 2238) COMPREHENSIVE METABOLIC [id number] 00:00:00 Test Item Value Reference Range Interpretation Comments GLUCOSE (test code = 2217) 155 MG/DL BUN (test code = 2208) 13 MG/DL CREATININE (test code = 2214) 0.74 MG/DL eGFR AMER. (test code 103 ML/MIN/1.73 = 75562) eGFR NON- AMER. (test 89 ML/MIN/1.73 code = 49923) CALC BUN/CREAT (test code = 18 RATIO 2235) SODIUM (test code = 2231) 140 MEQ/L POTASSIUM (test code = 2228) 4.3 MEQ/L CHLORIDE (test code = 2215) 104 MEQ/L CARBON DIOXIDE (test code = 25 MEQ/L 2205) CALCIUM (test code = 2209) 9.2 MG/DL PROTEIN, TOTAL (test code = 7.3 G/DL 2228) ALBUMIN (test code = 220) 4.2 G/DL CALC GLOBULIN (test code = 3.1 G/DL 2239) CALC A/G RATIO (test code = 1.4 RATIO 2234) BILIRUBIN, TOTAL (test code = 0.3 MG/DL 2206) ALKALINE PHOSPHATASE (test 126 U/L code = 2204) AST (test code = 2218) 17 U/L ALT (test code = 2219) 19 U/L COMPREHENSIVE METABOLIC [id number] 00:00:00 Test Item Value Reference Range Interpretation Comments GLUCOSE (test code = 2217) 155 MG/DL BUN (test code = 2208) 13 MG/DL CREATININE (test code = 2214) 0.74 MG/DL eGFR AMER. (test code 103 ML/MIN/1.73 = 98313) eGFR NON- AMER. (test 89 ML/MIN/1.73 code = 61181) CALC BUN/CREAT (test code = 18 RATIO 2235) SODIUM (test code = 2231) 140 MEQ/L POTASSIUM (test code = 2228) 4.3 MEQ/L CHLORIDE (test code = 2215) 104 MEQ/L CARBON DIOXIDE (test code = 25 MEQ/L 2205) CALCIUM (test code = 2209) 9.2 MG/DL PROTEIN, TOTAL (test code = 7.3 G/DL 222) ALBUMIN (test code = 2201) 4.2 G/DL CALC GLOBULIN (test code = 3.1 G/DL 2240) CALC A/G RATIO (test code = 1.4 RATIO 2234) BILIRUBIN, TOTAL (test code = 0.3 MG/DL 2206) ALKALINE PHOSPHATASE (test 126 U/L code = 2204) AST (test code = 2218) 17 U/L ALT (test code = 2219) 19 U/L [id number] 00:00:00 Test Item Value Reference Range Interpretation Comments TSH, THIRD GENERATION (test code 1.430 UIU/ML = 2821) [id number] 00:00:00 Test Item Value Reference Range Interpretation Comments TSH, THIRD GENERATION (test code 1.430 UIU/ML = 2821) LIPID [id number] 00:00:00 Test Item Value Reference Range Interpretation Comments CHOLESTEROL (test code = 2210) 109 MG/DL TRIGLYCERIDES (test code = 2232) 120 MG/DL HDL CHOLESTEROL (test code = 2220) 44 MG/DL CALC LDL CHOL (test code = 2237) 44 MG/DL RISK RATIO LDL/HDL (test code = 1.00 RATIO 2238) [id number] 00:00:00 Test Item Value Reference Range Interpretation Comments TSH, THIRD GENERATION (test code 1.430 UIU/ML = 2821) COMPREHENSIVE METABOLIC [id number] 00:00:00 Test Item Value Reference Range Interpretation Comments GLUCOSE (test code = 2217) 155 MG/DL BUN (test code = 2208) 13 MG/DL CREATININE (test code = 2214) 0.74 MG/DL eGFR AMER. (test code 103 ML/MIN/1.73 = 42456) eGFR NON- AMER. (test 89 ML/MIN/1.73 code = 08970) CALC BUN/CREAT (test code = 18 RATIO [...] ALT (test code = 2219) 19 U/L [id number] 00:00:00 Test Item Value Reference Range Interpretation Comments TSH, THIRD GENERATION (test code 1.430 UIU/ML = 2821) [id number] 00:00:00 Test Item Value Reference Range Interpretation Comments TSH, THIRD GENERATION (test code 1.430 UIU/ML = 2821) CBC W/AUTO [id number] 00:00:00 Test Item Value Reference Range Interpretation [...] code = 1015) 380 K/UL CBC W/AUTO [id number] 00:00:00 Test Item Value Reference Range Interpretation [...] code = 1015) 380 K/UL CBC W/AUTO [id number] 00:00:00 Test Item Value Reference Range Interpretation [...] (test code = 1015) 380 K/UL HEMOGLOBIN [id number] 00:00:00 Test Item Value Reference Range Interpretation Comments HEMOGLOBIN A1c (test code = 07743) 7.2 % HEMOGLOBIN [id number] 00:00:00 Test Item Value Reference Range Interpretation Comments HEMOGLOBIN A1c (test code = 61304) 7.2 % HEMOGLOBIN [id number] 00:00:00 Test Item Value Reference Range Interpretation Comments HEMOGLOBIN A1c (test code = 35292) 7.2 % LIPID [id number] 00:00:00 Test Item Value Reference Range Interpretation Comments CHOLESTEROL (test code = 2210) 109 MG/DL TRIGLYCERIDES (test code = 2232) 120 MG/DL HDL CHOLESTEROL (test code = 2220) 44 MG/DL CALC LDL CHOL (test code = 2237) 44 MG/DL RISK RATIO LDL/HDL (test code = 1.00 RATIO 2238) LIPID [id number] 00:00:00 Test Item Value Reference Range Interpretation Comments CHOLESTEROL (test code = 2210) 109 MG/DL TRIGLYCERIDES (test code = 2232) 120 MG/DL HDL CHOLESTEROL (test code = 2220) 44 MG/DL CALC LDL CHOL (test code = 2237) 44 MG/DL RISK RATIO LDL/HDL (test code = 1.00 RATIO 2238) COMPREHENSIVE METABOLIC [id number] 00:00:00 Test Item Value Reference Range Interpretation Comments GLUCOSE (test code = 2217) 155 MG/DL BUN (test code = 2208) 13 MG/DL CREATININE (test code = 2214) 0.74 MG/DL eGFR AMER. (test code 103 ML/MIN/1.73 = 26238) eGFR NON- AMER. (test 89 ML/MIN/1.73 code = 42583) CALC BUN/CREAT (test code = 18 RATIO [...] CALC GLOBULIN (test code = 3.1 G/DL 2239) CALC A/G RATIO (test code = 1.4 RATIO 2234) BILIRUBIN, TOTAL (test code = 0.3 MG/DL 2206) ALKALINE PHOSPHATASE (test 126 U/L code = 2204) AST (test code = 2218) 17 U/L ALT (test code = 2219) 19 U/L COMPREHENSIVE METABOLIC [id number] 00:00:00 Test Item Value Reference Range Interpretation Comments GLUCOSE (test code = 2217) 155 MG/DL BUN (test code = 2208) 13 MG/DL CREATININE (test code = 2214) 0.74 MG/DL eGFR AMER. (test code 103 ML/MIN/1.73 = 07025) eGFR NON- AMER. (test 89 ML/MIN/1.73 code = 48112) CALC BUN/CREAT (test code = 18 RATIO [...] CALC GLOBULIN (test code = 3.1 G/DL 0) CALC A/G RATIO (test code = 1.4 RATIO 4) BILIRUBIN, TOTAL (test code = 0.3 MG/DL 2206) ALKALINE PHOSPHATASE (test 126 U/L code = 2204) AST (test code = 2218) 17 U/L ALT (test code = 2219) 19 U/L [id number] 00:00:00 Test Item Value Reference Range Interpretation Comments TSH, THIRD GENERATION (test code 1.430 UIU/ML = 2821) [id number] 00:00:00 Test Item Value Reference Range Interpretation Comments TSH, THIRD GENERATION (test code 1.430 UIU/ML = 2821) [id number] 00:00:00 Test Item Value Reference Range Interpretation Comments TSH, THIRD GENERATION (test code 1.430 UIU/ML = 2821) CBC W/AUTO [id number] 00:00:00 Test Item Value Reference Range Interpretation [...] code = 1015) 380 K/UL CBC W/AUTO [id number] 00:00:00 Test Item Value Reference Range Interpretation [...] code = 1015) 380 K/UL CBC W/AUTO [id number] 00:00:00 Test Item Value Reference Range Interpretation [...] (test code = 1015) 380 K/UL HEMOGLOBIN [id number] 00:00:00 Test Item Value Reference Range Interpretation Comments HEMOGLOBIN A1c (test code = 21159) 7.2 % HEMOGLOBIN [id number] 00:00:00 Test Item Value Reference Range Interpretation Comments HEMOGLOBIN A1c (test code = 30526) 7.2 % HEMOGLOBIN [id number] 00:00:00 Test Item Value Reference Range Interpretation Comments HEMOGLOBIN A1c (test code = 68224) 7.2 % LIPID [id number] 00:00:00 Test Item Value Reference Range Interpretation Comments CHOLESTEROL (test code = 2210) 109 MG/DL TRIGLYCERIDES (test code = 2232) 120 MG/DL HDL CHOLESTEROL (test code = 2220) 44 MG/DL CALC LDL CHOL (test code = 2237) 44 MG/DL RISK RATIO LDL/HDL (test code = 1.00 RATIO 2238) LIPID [id number] 00:00:00 Test Item Value Reference Range Interpretation Comments CHOLESTEROL (test code = 2210) 109 MG/DL TRIGLYCERIDES (test code = 2232) 120 MG/DL HDL CHOLESTEROL (test code = 2220) 44 MG/DL CALC LDL CHOL (test code = 2237) 44 MG/DL RISK RATIO LDL/HDL (test code = 1.00 RATIO 2238) COMPREHENSIVE METABOLIC [id number] 00:00:00 Test Item Value Reference Range Interpretation Comments GLUCOSE (test code = 2217) 155 MG/DL BUN (test code = 2208) 13 MG/DL CREATININE (test code = 2214) 0.74 MG/DL eGFR AMER. (test code 103 ML/MIN/1.73 = 37122) eGFR NON- AMER. (test 89 ML/MIN/1.73 code = 83954) CALC BUN/CREAT (test code = 18 RATIO 2235) SODIUM (test code = 2231) 140 MEQ/L POTASSIUM (test code = 2228) 4.3 MEQ/L CHLORIDE (test code = 2215) 104 MEQ/L CARBON DIOXIDE (test code = 25 MEQ/L 2205) CALCIUM (test code = 2209) 9.2 MG/DL PROTEIN, TOTAL (test code = 7.3 G/DL 2229) ALBUMIN (test code = 2201) 4.2 G/DL CALC GLOBULIN (test code = 3.1 G/DL 2240) CALC A/G RATIO (test code = 1.4 RATIO 2234) BILIRUBIN, TOTAL (test code = 0.3 MG/DL 2207) ALKALINE PHOSPHATASE (test 126 U/L code = 2204) AST (test code = 2218) 17 U/L ALT (test code = 2219) 19 U/L COMPREHENSIVE METABOLIC [id number] 00:00:00 Test Item Value Reference Range Interpretation Comments GLUCOSE (test code = 2217) 155 MG/DL BUN (test code = 2208) 13 MG/DL CREATININE (test code = 2214) 0.74 MG/DL eGFR AMER. (test code 103 ML/MIN/1.73 = 15183) eGFR NON- AMER. (test 89 ML/MIN/1.73 code = 22770) CALC BUN/CREAT (test code = 18 RATIO 2235) SODIUM (test code = 2231) 140 MEQ/L POTASSIUM (test code = 2228) 4.3 MEQ/L CHLORIDE (test code = 2215) 104 MEQ/L CARBON DIOXIDE (test code = 25 MEQ/L 2206) CALCIUM (test code = 2209) 9.2 MG/DL PROTEIN, TOTAL (test code = 7.3 G/DL 2228) ALBUMIN (test code = 2201) 4.2 G/DL CALC GLOBULIN (test code = 3.1 G/DL 2240) CALC A/G RATIO (test code = 1.4 RATIO 2234) BILIRUBIN, TOTAL (test code = 0.3 MG/DL 2207) ALKALINE PHOSPHATASE (test 126 U/L code = 2204) AST (test code = 2218) 17 U/L ALT (test code = 2219) 19 U/L [id number] 00:00:00 Test Item Value Reference Range Interpretation Comments TSH, THIRD GENERATION (test code 1.430 UIU/ML = 2821) [id number] 00:00:00 Test Item Value Reference Range Interpretation Comments TSH, THIRD GENERATION (test code 1.430 UIU/ML = 2821) [id number] 00:00:00 Test Item Value Reference Range Interpretation Comments TSH, THIRD GENERATION (test code 1.430 UIU/ML = 2821) CBC W/AUTO [id number] 00:00:00 Test Item Value Reference Range Interpretation [...] code = 1015) 380 K/UL CBC W/AUTO [id number] 00:00:00 Test Item Value Reference Range Interpretation [...] code = 1015) 380 K/UL CBC W/AUTO [id number] 00:00:00 Test Item Value Reference Range Interpretation [...] (test code = 1015) 380 K/UL HEMOGLOBIN [id number] 00:00:00 Test Item Value Reference Range Interpretation Comments HEMOGLOBIN A1c (test code = 51443) 7.2 % HEMOGLOBIN [id number] 00:00:00 Test Item Value Reference Range Interpretation Comments HEMOGLOBIN A1c (test code = 04203) 7.2 % HEMOGLOBIN [id number] 00:00:00 Test Item Value Reference Range Interpretation Comments HEMOGLOBIN A1c (test code = 43244) 7.2 % LIPID [id number] 00:00:00 Test Item Value Reference Range Interpretation Comments CHOLESTEROL (test code = 2210) 109 MG/DL TRIGLYCERIDES (test code = 2232) 120 MG/DL HDL CHOLESTEROL (test code = 2220) 44 MG/DL CALC LDL CHOL (test code = 2237) 44 MG/DL RISK RATIO LDL/HDL (test code = 1.00 RATIO 2238) LIPID [id number] 00:00:00 Test Item Value Reference Range Interpretation Comments CHOLESTEROL (test code = 2210) 109 MG/DL TRIGLYCERIDES (test code = 2232) 120 MG/DL HDL CHOLESTEROL (test code = 2220) 44 MG/DL CALC LDL CHOL (test code = 2237) 44 MG/DL RISK RATIO LDL/HDL (test code = 1.00 RATIO 2238) COMPREHENSIVE METABOLIC [id number] 00:00:00 Test Item Value Reference Range Interpretation Comments GLUCOSE (test code = 2217) 155 MG/DL BUN (test code = 2208) 13 MG/DL CREATININE (test code = 2214) 0.74 MG/DL eGFR AMER. (test code 103 ML/MIN/1.73 = 06648) eGFR NON- AMER. (test 89 ML/MIN/1.73 code = 43056) CALC BUN/CREAT (test code = 18 RATIO [...] ALT (test code = 2219) 19 U/L COMPREHENSIVE METABOLIC [id number] 00:00:00 Test Item Value Reference Range Interpretation Comments GLUCOSE (test code = 2217) 155 MG/DL BUN (test code = 2208) 13 MG/DL CREATININE (test code = 2214) 0.74 MG/DL eGFR AMER. (test code 103 ML/MIN/1.73 = 68687) eGFR NON- AMER. (test 89 ML/MIN/1.73 code = 02389) CALC BUN/CREAT (test code = 18 RATIO [...] ALT (test code = 2219) 19 U/L [id number] 00:00:00 Test Item Value Reference Range Interpretation Comments TSH, THIRD GENERATION (test code 1.430 UIU/ML = 2821) [id number] 00:00:00 Test Item Value Reference Range Interpretation Comments TSH, THIRD GENERATION (test code 1.430 UIU/ML = 2821) [id number] 00:00:00 Test Item Value Reference Range Interpretation Comments TSH, THIRD GENERATION (test code 1.430 UIU/ML = 2821) CBC W/AUTO [id number] 00:00:00 Test Item Value Reference Range Interpretation [...] code = 1015) 380 K/UL CBC W/AUTO [id number] 00:00:00 Test Item Value Reference Range Interpretation [...] code = 1015) 380 K/UL CBC W/AUTO [id number] 00:00:00 Test Item Value Reference Range Interpretation [...] (test code = 1015) 380 K/UL HEMOGLOBIN [id number] 00:00:00 Test Item Value Reference Range Interpretation Comments HEMOGLOBIN A1c (test code = 38350) 7.2 % HEMOGLOBIN [id number] 00:00:00 Test Item Value Reference Range Interpretation Comments HEMOGLOBIN A1c (test code = 30916) 7.2 % HEMOGLOBIN [id number] 00:00:00 Test Item Value Reference Range Interpretation Comments HEMOGLOBIN A1c (test code = 38072) 7.2 % LIPID [id number] 00:00:00 Test Item Value Reference Range Interpretation Comments CHOLESTEROL (test code = 2210) 109 MG/DL TRIGLYCERIDES (test code = 2232) 120 MG/DL HDL CHOLESTEROL (test code = 2220) 44 MG/DL CALC LDL CHOL (test code = 2237) 44 MG/DL RISK RATIO LDL/HDL (test code = 1.00 RATIO 2238) LIPID [id number] 00:00:00 Test Item Value Reference Range Interpretation Comments CHOLESTEROL (test code = 2210) 109 MG/DL TRIGLYCERIDES (test code = 2232) 120 MG/DL HDL CHOLESTEROL (test code = 2220) 44 MG/DL CALC LDL CHOL (test code = 2237) 44 MG/DL RISK RATIO LDL/HDL (test code = 1.00 RATIO 2238) COMPREHENSIVE METABOLIC [id number] 00:00:00 Test Item Value Reference Range Interpretation Comments GLUCOSE (test code = 2217) 155 MG/DL BUN (test code = 2208) 13 MG/DL CREATININE (test code = 2214) 0.74 MG/DL eGFR AMER. (test code 103 ML/MIN/1.73 = 54875) eGFR NON- AMER. (test 89 ML/MIN/1.73 code = 00966) CALC BUN/CREAT (test code = 18 RATIO [...] ALT (test code = 2219) 19 U/L COMPREHENSIVE METABOLIC [id number] 00:00:00 Test Item Value Reference Range Interpretation Comments GLUCOSE (test code = 2217) 155 MG/DL BUN (test code = 2208) 13 MG/DL CREATININE (test code = 2214) 0.74 MG/DL eGFR AMER. (test code 103 ML/MIN/1.73 = 23033) eGFR NON- AMER. (test 89 ML/MIN/1.73 code = 80436) CALC BUN/CREAT (test code = 18 RATIO 2235) SODIUM (test code = 2231) 140 MEQ/L POTASSIUM (test code = 2228) 4.3 MEQ/L CHLORIDE (test code = 2215) 104 MEQ/L CARBON DIOXIDE (test code = 25 MEQ/L 220) CALCIUM (test code = 2209) 9.2 MG/DL [...] ALT (test code = 2219) 19 U/L [id number] 00:00:00 Test Item Value Reference Range Interpretation Comments TSH, THIRD GENERATION (test code 1.430 UIU/ML = 2821) [id number] 00:00:00 Test Item Value Reference Range Interpretation Comments TSH, THIRD GENERATION (test code 1.430 UIU/ML = 2821) [id number] 00:00:00 Test Item Value Reference Range Interpretation Comments TSH, THIRD GENERATION (test code 1.430 UIU/ML = 2821) RISHI, EMBOLIZATION, [id number] 13:13:00For 03/17 after first caseReason for exam:->right MMA embolization for chronic subdural hematomaAne sthesia:->[facility] Diaz : 1960 Sex: FFINAL REPORT Date of [...] and maintained on heparinized flush. A 6 Vietnamese Envoy guide catheter and 5 Vietnamese Select catheter were introduced and brought into [...] filling slowed we transitioned to coil embolization. [place] [employer] Kirsten-coils and [employer] MicroPlex were used [...] artery is large and size, possibly a GROUNDSKEEPER, and the anterior choroidalartery is visualized. The [...] or ra diographic evidence of complications. Signed: [employer] MDReport Verified Date/Time: 03/20/2020 13:13:46 [facility] Y026 Neuro Angio Reading Room POCT- GLUCOSE [id number] 11:40:00 Test Item Value Reference Range Interpretation Comments POC-GLUCOSE METER 152 mg/dL 70-110 H : TESTED A T [facility] 6720 (BEAKER) (test code = [facility], 1538) [id number]: Personal Lines Sales Executive/Techni john ID = [id number] for Esperanza Monreal POCT-GLUCOSE [id number] 06:49:00 Test Item Value Reference Range Interpretation Comments POC-GLUCOSE METER 130 mg/dL 70-110 H : TESTED A T [facility] 6720 (BEAKER) (test code = [facility] [employer] [place] [facility], 1538) [id number]: Personal Lines Sales Executive/Techni john ID = [id number] for [place] CALCIUM, [id number] 06:13:00 Test Item Value Reference Range Interpretation Comments CALCIUM IONIZED (BEAKER) (test 1.11 mmol/L 1.12-1.27 L code = 698) PH, BLOOD (BEAKER) (test code = 7.40 1810) CT, BRAIN, WITHOUT [id number] 05:00:00Unlisted Reason for Exam - Click Yes and Enter Reason Below->No [facility] [facility]OSPITAL[facility]: CHRISSIE ESTRADA : 1960 Sex: FFINAL REPORT EXAM: CT head without contrast. CLINICAL HISTORY: Subdural hematoma COMPARISON: Head CT 03/15/2020. TECHNIQUE: CT images of the head were obtained without intravenous contrast.This exam was performed according to our departmental [...] 6 mm. There is associated mild parenchymal mass effect. There is mild diffuse sulcal effacement in the right cerebral hemisphere. There is a stable 5mm rthed-ro-vjoj midline shift.There are stable thin right parafalcine and right tentorial subdural hematomas.There is mild pneumocephalus, decreased.There are mild white matter microvascular ischemic c hanges.There is no hydrocephalus or large demarcated acute territorial infarct. The basal cisterns are patent. The visualized orbits are normal. There is mild bilateral maxillary sinus mucosal thickening. The visualized tympanomastoid cavities are clear. IMPRESSION: Postsurgical changes from right parietal craniotomy for subdural hematoma evacuation.Stable small mixed density right cerebral convexitysubdural hematoma. With mild parenchymal mass effect. Stable icxib-dd-iyas midline shift.Stable thinright parafalcine and right tentorial subdural hematomas. Signed: Paul Charlton MDReport Verified Date/Time: 03/18/2020 05:00:25 BASIC METABOLIC [id number] 04:38:00 Test Item Value Reference Range Interpretation [...] S NOT APPLICABLE FOR DIALYSIS PATIEN TS. Personal Lines Sales Executive ID - [id number] 04:38:00 Test Item Value Reference Range Interpretation Comments MAGNESIUM (BEAKER) (test code = 1.8 mg/dL 1.6-2.6 627) Personal Lines Sales Executive ID - [id number] 04:38:00 Test Item Value Reference Range Interpretation Comments PHOSPHORUS (BEAKER) (test code = 2.8 mg/dL 2.3-4.7 604) Personal Lines Sales Executive ID - ADMINCBC W/PLT COUNT & AUTO [id number] 04:29:00 Test Item Value Reference Range Interpretation [...] PERCENT (BEAKER) (test code = 2801) POCT-GLUCOSE [id number] 22:17:00 Test Item Value Reference Range Interpretation Comments POC-GLUCOSE METER 171 mg/dL 70-110 H : TESTED A T [facility] 67 (YOON) (test code = [facility], 153) [address]: Personal Lines Sales Executive/Techni john ID = [id number] for Shaggy Hall POCT-GLUCOSE [id number] 16:50:00 Test Item Value Reference Range Interpretation Comments POC-GLUCOSE METER 169 mg/dL 70-110 H : Notified RN/MD: (YOON) (test code = TESTED AT [facility] 6720 153) [facility], [address]: Personal Lines Sales Executive/Techni john ID = [id number] for Espernaza Monreal POCT-GLUCOSE [id number] 08:36:00 Test Item Value Reference Range Interpretation Comments POC-GLUCOSE METER 152 mg/dL 70-110 H : TESTED A T [facility] 6720 (BEAKER) (test code = [place], 1538) [address]: Personal Lines Sales Executive/Techni john ID = [id number] for MOHAN MCCURDY BASIC METABOLIC [id number] 06:16:00 Test Item Value Reference Range Interpretation [...] S NOT APPLICABLE FOR DIALYSIS PATIEN TS. Personal Lines Sales Executive ID - ADMINCBC W/PLT COUNT & AUTO [id number] 05:49:00 Test Item Value Reference Range Interpretation [...] PERCENT (BEAKER) (test code = 2801) POCT-GLUCOSE [id number] 20:45:00 Test Item Value Reference Range Interpretation Comments POC-GLUCOSE METER 160 mg/dL 70-110 H : Notified RN/MD: (LANAKER) (test code = TESTED AT [facility] 1025 8033) [facility], [address]: Personal Lines Sales Executive/Techni john ID = [id number] for DO VECINTHYA PROTHROMBIN TIME/[id number] 18:22:00 Test Item Value Reference Range Interpretation [...] is 2.5-3.5 for patients wiht mechanical heart valves.PT/[id number] 17:48:00 Test Item Value Reference Range Interpretation [...] 2.5-3.5 for patients wiht mechanical heart valves.POCT-GLUCOSE [id number] 17:37:00 Test Item Value Reference Range Interpretation Comments POC-GLUCOSE METER 182 mg/dL 70-110 H : TESTED A T [facility] 6720 ([employer]) (test code = [employer] [facility], 1538) [address]: Personal Lines Sales Executive/Techni john ID = [id number] for Lan Shaffer [id number] 16:53:00 Test Item Value Reference Range Interpretation Comments FIBRINOGEN LEVEL (BEAKER) (test 391 mg/dl 225-434 code = 658) POCT-GLUCOSE [id number] 13:39:00 Test Item Value Reference Range Interpretation Comments POC-GLUCOSE METER 137 mg/dL 70-110 H : TESTED A T [facility] 6720 (BEAKER) (test code = [facility] [employer] [facility], 1538) [address]: Personal Lines Sales Executive/Techni john ID = [id number] for Lan Shaffer BASIC METABOLIC [id number] 06:01:00 Test Item Value Reference Range Interpretation [...] S NOT APPLICABLE FOR DIALYSIS PATIEN TS. Personal Lines Sales Executive ID - DBCBC W/PLT COUNT & AUTO [id number] 05:48:00 Test Item Value Reference Range Interpretation [...] PERCENT (BEAKER) (test code = 2801) POCT-GLUCOSE [id number] 20:51:00 Test Item Value Reference Range Interpretation Comments POC-GLUCOSE METER 209 mg/dL 70-110 H : Notified RN/MD: ([facility] [place]) (test code = TESTED AT [facility] 6720 1538) [facility], [address]: Personal Lines Sales Executive/Techni john ID = [id number] for DO VE, CHEKARA POCT-GLUCOSE [id number] 18:02:00 Test Item Value Reference Range Interpretation Comments POC-GLUCOSE METER 178 mg/dL 70-110 H : TESTED A T [facility] 6720 ([facility] [place]) (test code = [facility] [facility], 1538) [address]: Personal Lines Sales Executive/Techni john ID = [id number] for FL DANTESMATHEUSA RAD, CHEST, 1 VIEW, NON [id number] 14:34:00Reason for exam:->SOBShould this be performed at the bedside?->Yes [facility] : 1960 Sex: FFINAL REPORT Chest, one view HISTORY: Shortness of breath Comparison: 03/13/2020 Findings: Lungs: Increasing bilateral interstitial opacities, suggesting pulmonary edema. Heart: Cardiac silhouette is mildly enlarged. Pleura: No pleural effusion or pneumothorax. Bones: Unremarkable. Lines/tubes: Unchanged cardiac pacer. Signed: Raudel Vo Verified Date/Time: 03/15/2020 14:34:36 Reading Location: [address] Transitional Reading Room POCT-GLUCOSE [id number] 12:58:00 Test Item Value Reference Range Interpretation Comments POC-GLUCOSE METER 221 mg/dL 70-110 H : Notified RN/MD: (YOON) (test code = TESTED AT [facility] 6720 1538) [facility], [address]: Personal Lines Sales Executive/Techni john ID = [id number] for JARAD GIBBONS CBC W/PLT COUNT & AUTO [id number] 07:11:00 Test Item Value Reference Range Interpretation [...] PERCENT (BEAKER) (test code = 2801) POCT-GLUCOSE [id number] 06:54:00 Test Item Value Reference Range Interpretation Comments POC-GLUCOSE METER 194 mg/dL 70-110 H : TESTED A T [facility] 6720 (BEAKER) (test code = [facility], 1538) [address]: Personal Lines Sales Executive/Techni john ID = [id number] for REBEKAH CAREY CT, BRAIN, WITHOUT [id number] 05:45:00Unlisted Reason for Exam - Click Yes and Enter Reason Below->No [facility] CENTERName: CHRISSIE ESTRADA : 1960 [...] right cerebral hemisphere. There is a 5mm gpnns-ya-pcri midline shift (previously measured 9 mm). There [...] sub dural hematoma. Associated mass effect. Decreased gkoau-yi-vimi midline shift. No hydrocephalus. Stable thin posterior parafalcine and right tentorial subdural hematomas. Signed: Paul Charlton MDReportVerified Date/Time: 03/15/2020 05:45:30 BASIC METABOLIC [id number] 05:43:00 Test Item Value Reference Range Interpretation [...] S NOT APPLICABLE FOR DIALYSIS PATIEN TS. Personal Lines Sales Executive ID - EDASIPOCT-GLUCOSE [id number] 02:37:00 Test Item Value Reference Range Interpretation Comments POC-GLUCOSE METER 222 mg/dL 70-110 H : TESTED A T [facility] 6720 (BEAKER) (test code = [facility], 1538) [address]: Personal Lines Sales Executive/Techni john ID = [id number] for AKHIONBARE, REBEKAH TH POCT-GLUCOSE [id number] 19:11:00 Test Item Value Reference Range Interpretation Comments POC-GLUCOSE METER 214 mg/dL 70-110 H : TESTED A T [facility] 6720 (BEAKER) (test code = [facility], 1538) 84703: Personal Lines Sales Executive/Techni john ID = [id number] for FL ORES, JASS POCT-GLUCOSE [id number] 13:51:00 Test Item Value Reference Range Interpretation Comments POC-GLUCOSE METER 179 mg/dL 70-110 H : TESTED A T [facility] 6720 (BEAKER) (test code = [facility], 1538) 06[address]: Personal Lines Sales Executive/Techni john ID = [id number] for VA RELA, BOLA POCT-GLUCOSE [id number] 13:49:00 Test Item Value Reference Range Interpretation Comments POC-GLUCOSE METER 172 mg/dL 70-110 H : TESTED A T [facility] 6720 (YOON) (test code = [place], 1538) [address]: Personal Lines Sales Executive/Techni john ID = [id number] for BOLA TORIBIO SARS-COV2/RT-PCR ([facility])2020-03-14 05:54:00 Test Item Value Reference Range Interpretation Comments SARS-COV2/RT-PCR (test code Negative Not Detected, Negative, = 8320350) See external report for linked test SARS-COV-2 PERFORMING LAB [facility] (test code = 9445619) Negative results do not preclude SARS-CoV-2 infection [...] of the Act.Fact Sheet for Healthcare Pro viders:https://www.[employer].[place]/Documents/Xpert%20Xpress%20SARS%20CoV-2/Fact%20Sh eets/3023802%53LMIW-TEB-9%20HEALTHCARE%20PROVIDERS%20FACT%20SHEET.pdfFact Sheet for Healthcare Patients:https://www.[employer].[place]/Documents/Xpert%20Xpress%20SARS%20CoV-2/Fact%20Sheets/3023801%20SARS-COV -2%20PATIENT%20FACT%20SHEET.pdfPerforming Laboratory:[facility], [place] [address]IWNOLSKJW SCREEN, [id number] 05:21:00 Test Item Value Reference Range Interpretation Comments TEST URINE (BEAKER) (test Negative code = 583) B-TYPE NATRIURETIC FACTOR (BNP)2020-03-14 05:19:00 Test Item Value Reference Range Interpretation Comments B-TYPE NATRIURETIC PEPTIDE (BEAKER) 39 pg/mL 0-100 (test code = 700) Personal Lines Sales Executive ID - KAYLAH MBASIC METABOLIC [id number] 05:10:00 Test Item Value Reference Range Interpretation [...] S NOT APPLICABLE FOR DIALYSIS PATIEN TS. Personal Lines Sales Executive ID - EDASICBC W/PLT COUNT & AUTO [id number] 04:47:00 Test Item Value Reference Range Interpretation [...] = 2801) RAD, CHEST, 1 VIEW, NON [id number] 22:44:00Reason for exam:->preopShould this be performed at the bedside?->Yes [facility] : 1960 Sex: FFINAL REPORT [...] Roberson Verified Date/Time: 03/13/2020 22:44:48 Reading Location: [address] Transitional Reading Room El ectronically signed by: SITA ROBERSON MD on 03/13/2020 10:44 PMPOTASSIUM 2020-03-13 17:01:00 Test Item Value Reference Range Interpretation Comments POTASSIUM (BEAKER) (test code = 3.8 meq/L 3.5-5.1 379) Personal Lines Sales Executive ID - BSPOCT-GLUCOSE [id number] 16:46:00 Test Item Value Reference Range Interpretation Comments POC-GLUCOSE METER 174 mg/dL 70-110 H : TESTED A T [facility] 6720 (BEAKER) (test code = [place], 1538) [address]: Personal Lines Sales Executive/Techni john ID = [id number] for FO [facility], GRAWN CT, BRAIN, WITHOUT [id number] 13:51:00Unlisted Reason for Exam - Click Yes and Enter Reason Below->No [facility] : 1960 Sex: FFINAL REPORT [...] 9 mm leftward midline shift. Signed: Meeta Mendoza MDRort Verified Date/Time: 03/13/2020 13:51:30 BASI METABOLIC [id number] 11:17:00 Test Item Value Reference Range Interpretation [...] S NOT APPLICABLE FOR DIALYSIS PATIEN TS. Personal Lines Sales Executive ID - EDASIEEG AWAKE AND [id number] 10:35:00Reason for exam:- >SeizuresShould this be performed at the bedside?->Yes [facility] : 1960 Sex: FNEUROPHYSIOLOGY EEG REPORT DATES OF TEST: 03/13/20 DATE OF REPORT: 03/13/20 Name: Chrissie Estrada Start time: 08:13 Stop time: 08:35 ACC: [id number] EEG Number: [id number] CPT: 70338 ICD10: R56.9 TECHNICAL SUMMARY: This is a [...] recordings. Angie Tesfaye MD, PhD Epilepsy Attending [facility]IVE METABOLIC [id number] 08:26:00 Test Item Value Reference Range Interpretation [...] S NOT APPLICABLE FOR DIALYSIS PATIEN TS. Personal Lines Sales Executive ID - EDASICBC W/PLT COUNT & AUTO [id number] 07:06:00 Test Item Value Reference Range Interpretation [...] PERCENT (BEAKER) (test code = 2801) PROTHROMBIN TIME/[id number] 06:46:00 Test Item Value Reference Range Interpretation [...] 2.5-3.5 for patients wiht mechanical heart valves.POCT-GLUCOSE [id number] 09:05:00 Test Item Value Reference Range Interpretation Comments POC-GLUCOSE METER 162 mg/dL 70-110 H : TESTED A T [facility] 6720 (BEAKER) (test code = [place] Miranda [facility], 1538) [address]: Personal Lines Sales Executive/Techni john ID = [id number] for JENNY GAUTHIER HEMOGLOBIN [id number] 07:40:00 Test Item Value Reference Range Interpretation Comments HEMOGLOBIN A1C (BEAKER) (test code = 8.2 % 4.3-6.1 H 368) CBC W/PLT COUNT & AUTO [id number] 06:14:00 Test Item Value Reference Range Interpretation [...] PERCENT (BEAKER) (test code = 2801) TROPONIN [id number] 06:12:00 Test Item Value Reference Range Interpretation [...] failure, acidosis, acute neurological disease, and persistent tachyarrhythmia.Personal Lines Sales Executive ID - EDASIPOCT-GLUCOSE METER 2020-02-29 21:55:00 Test Item Value Reference Range Interpretation Comments POC-GLUCOSE METER 173 mg/dL 70-110 H : TESTED A T [facility] 6720 ([facility]) (test code = [facility], 1538) 15[address]: Personal Lines Sales Executive/Techni john ID = [id number] for DE NNIS, DANO POCT-GLUCOSE [id number] 18:13:00 Test Item Value Reference Range Interpretation Comments POC-GLUCOSE METER 211 mg/dL 70-110 H : TESTED A T [facility] 6720 ([facility]) (test code = [facility], 1538) [address]: Personal Lines Sales Executive/Techni john ID = [id number] for FL ORES, JASS POCT-GLUCOSE [id number] 11:38:00 Test Item Value Reference Range Interpretation Comments POC-GLUCOSE METER 139 mg/dL 70-110 H : Notified RN/MD: ([facility]) (test code = TESTED AT [facility] 6720 1538) [facility], [address]: Personal Lines Sales Executive/Techni john ID = [id number] for LL OYD, TIKEYA POCT-GLUCOSE [id number] 08:50:00 Test Item Value Reference Range Interpretation Comments POC-GLUCOSE METER 178 mg/dL 70-110 H : TESTED A [facility] 6720 ([facility]) (test code = [facility], 1538) [address]: Personal Lines Sales Executive/Techni jhon ID = [id number] for FL ORES, JASS CT, BRAIN, WITHOUT [id number] 06:57:00Unlisted Reason for Exam - Click Yes and Enter Reason Below->No [facility] Diaz : 1960 Sex: FFINAL REPORT CT, BRAIN, [...] MDReport Verified Date/Time: 02/29/2020 06:57:51 Reading Location: [address] Neuro Reading Room REHENSIVE METABOLIC [id number] 06:05:00 Test Item Value Reference Range Interpretation [...] S NOT APPLICABLE FOR DIALYSIS PATIEN TS. Personal Lines Sales Executive ID - EDASICBC W/PLT COUNT & AUTO [id number] 05:51:00 Test Item Value Reference Range Interpretation [...] 0-1 PERCENT (BEAKER) (test code = 2801) [id number] 22:48:00 Test Item Value Reference Range Interpretation Comments POTASSIUM (BEAKER) (test code = 3.9 meq/L 3.5-5.1 379) Personal Lines Sales Executive ID - DBPOCT-GLUCOSE [id number] 17:00:00 Test Item Value Reference Range Interpretation Comments POC-GLUCOSE METER 175 mg/dL 70-110 H : Notified RN/MD: (BEAKER) (test code = TESTED AT [facility] 4091 3880) [facility], [address]: Personal Lines Sales Executive/Techni john ID = [id number] for viky Esperanza [id number] 15:18:00 Test Item Value Reference Range Interpretation Comments MAGNESIUM (BEAKER) 2.2 mg/dL 1.6-2.6 Specimen slightly (test code = 627) hemolyzed Personal Lines Sales Executive ID - [id number] 15:18:00 Test Item Value Reference Range Interpretation Comments POTASSIUM (BEAKER) 3.4 meq/L 3.5-5.1 L Specimen slightly (test code = 379) hemolyzed Personal Lines Sales Executive ID - EDASISARS-COV2/RT-PCR ([facility])2020-02-28 13:06:00 Test Item Value Reference Range Interpretation Comments SARS-COV2/RT-PCR (test Negative Not Detected, Negative, code = 0095745) See external report for linked test SARS-COV-2 PERFORMING LAB [facility] CARRI (test code = 1673479) Negative result for this test determines that [...] of the Act.Fact Sheet for Healthcare Prov iders:https://www.[employer]/sites/default/files/product/documents/Fact_Sheet_HC _Gzxkfxdpe_Lupy_DUPC-WnA-0.pdfFact Sheet for Healthcare Patients:https://www.[employer]/sites/default/files/product/docume nts/Zdbd_Znneg_Btypcpnw_Rzwj_QVMA-GdY-6.pdfPerforming Laboratory:[facility], [place] [address]XYXG-HNDFMUE METER 2020-02-28 07:38:00 Test Item Value Reference Range Interpretation Comments POC-GLUCOSE METER 150 mg/dL 70-110 H : TESTED A T [facility] 6720 (BEAKER) (test code = [place] [facility], 1538) [address]: Personal Lines Sales Executive/Techni john ID = [id number] for Esperanza Monreal COMPREHENSIVE METABOLIC [id number] 06:52:00 Test Item Value Reference Range Interpretation [...] S NOT APPLICABLE FOR DIALYSIS PATIEN TS. Personal Lines Sales Executive ID - EDASIOnce on admission and Daily AM [id number] 06:52:00 Test Item Value Reference Range Interpretation Comments MAGNESIUM (BEAKER) (test code = 1.8 mg/dL 1.6-2.6 627) Personal Lines Sales Executive ID - EDASIOnce on admission and Daily AM [id number] 06:52:00 Test Item Value Reference Range Interpretation Comments PHOSPHORUS (BEAKER) (test code = 3.2 mg/dL 2.3-4.7 604) Personal Lines Sales Executive ID - EDASIOnce on admission and Daily AM afterwardsTROPONIN [id number] 06:32:00 Test Item Value Reference Range Interpretation [...] failure, acidosis, acute neurological disease, and persistent tachyarrhythmia.Personal Lines Sales Executive ID - EDASICBC W/PLT COUNT & AUTO [id number] 06:17:00 Test Item Value Reference Range Interpretation [...] PERCENT (BEAKER) (test code = 2801) POCT-GLUCOSE [id number] 02:43:00 Test Item Value Reference Range Interpretation Comments POC-GLUCOSE METER 275 mg/dL 70-110 H : TESTED A T [facility] 6720 (BEAKER) (test code = [place], 1538) [address]: Personal Lines Sales Executive/Techni john ID = [id number] for LAN KIMBLE CT, BRAIN, WITHOUT [id number] 02:27:00Unlisted Reason for Exam - Click Yes and Enter Reason Below->No [facility] : 1960 Sex: FFINAL REPORT [...] right falx and tentorial leaflet. Signed: Lucy Cameron [facility] Verified Date/Time: 02/28/2020 02:27:59 [facility]PREHENSIVE METABOLIC [id number] 23:28:00 Test Item Value Reference Range Interpretation [...] S NOT APPLICABLE FOR DIALYSIS PATIEN TS. Personal Lines Sales Executive ID - PIAYA LHEPATIC FUNCTION [id number] 23:28:00 Test Item Value Reference Range Interpretation [...] (test code = 16 U/L 6-55 347) Personal Lines Sales Executive ID - PICHADWICK [id number] 23:21:00 Test Item Value Reference Range Interpretation Comments FIBRINOGEN LEVEL (BEAKER) (test 413 mg/dl 225-434 code = 658) [id number] 23:21:00 Test Item Value Reference Range Interpretation Comments PARTIAL THROMBOPLASTIN TIME 26.2 seconds 22.5-36.0 (BEAKER) (test code = 760) PROTHROMBIN [id number] 23:20:00 Test Item Value Reference Range Interpretation [...] mechanical heart valves.CBC W/PLT COUNT & AUTO [id number] 23:15:00 Test Item Value Reference Range Interpretation [...] (BEAKER) (test code = 2801) CBC W/AUTO [id number] 00:00:00 Test Item Value Reference Range Interpretation [...] code = 1015) 383 K/UL CBC W/AUTO [id number] 00:00:00 Test Item Value Reference Range Interpretation [...] code = 1015) 383 K/UL CBC W/AUTO [id number] 00:00:00 Test Item Value Reference Range Interpretation [...] code = 1015) 383 K/UL COMPREHENSIVE METABOLIC [id number] 00:00:00 Test Item Value Reference Range Interpretation Comments GLUCOSE (test code = 2217) 198 MG/DL BUN (test code = 2208) 8 MG/DL CREATININE (test code = 2214) 0.69 MG/DL eGFR AMER. (test code 112 ML/MIN/1.73 = 85788) eGFR NON- AMER. (test 97 ML/MIN/1.73 code = 66074) CALC BUN/CREAT (test code = 12 RATIO 2235) SODIUM (test code = 2231) 138 MEQ/L POTASSIUM (test code = 2228) 3.8 MEQ/L CHLORIDE (test code = 2215) 100 MEQ/L CARBON DIOXIDE (test code = 27 MEQ/L 220) CALCIUM (test code = 2209) 9.3 MG/DL PROTEIN, TOTAL (test code = 7.4 G/DL 2228) ALBUMIN (test code = 2201) 4.5 G/DL CALC GLOBULIN (test code = 2.9 G/DL 2240) CALC A/G RATIO (test code = 1.6 RATIO 2234) BILIRUBIN, TOTAL (test code = 0.3 MG/DL 7) ALKALINE PHOSPHATASE (test 142 U/L code = 2204) AST (test code = 2218) 15 U/L ALT (test code = 2219) 19 U/L CBC W/AUTO [id number] 00:00:00 Test Item Value Reference Range Interpretation [...] code = 1015) 383 K/UL CBC W/AUTO [id number] 00:00:00 Test Item Value Reference Range Interpretation [...] code = 1015) 383 K/UL COMPREHENSIVE METABOLIC [id number] 00:00:00 Test Item Value Reference Range Interpretation Comments GLUCOSE (test code = 2217) 198 MG/DL BUN (test code = 2208) 8 MG/DL CREATININE (test code = 2214) 0.69 MG/DL eGFR AMER. (test code 112 ML/MIN/1.73 = 35720) eGFR NON- AMER. (test 97 ML/MIN/1.73 code = 07782) CALC BUN/CREAT (test code = 12 RATIO 2235) SODIUM (test code = 2231) 138 MEQ/L POTASSIUM (test code = 2228) 3.8 MEQ/L CHLORIDE (test code = 2215) 100 MEQ/L CARBON DIOXIDE (test code = 27 MEQ/L 220) CALCIUM (test code = 2209) 9.3 MG/DL PROTEIN, TOTAL (test code = 7.4 G/DL 2228) ALBUMIN (test code = 2201) 4.5 G/DL CALC GLOBULIN (test code = 2.9 G/DL 2240) CALC A/G RATIO (test code = 1.6 RATIO 2234) BILIRUBIN, TOTAL (test code = 0.3 MG/DL 2206) ALKALINE PHOSPHATASE (test 142 U/L code = 2204) AST (test code = 2218) 15 U/L ALT (test code = 2219) 19 U/L COMPREHENSIVE METABOLIC [id number] 00:00:00 Test Item Value Reference Range Interpretation Comments GLUCOSE (test code = 2217) 198 MG/DL BUN (test code = 2208) 8 MG/DL CREATININE (test code = 2214) 0.69 MG/DL eGFR AMER. (test code 112 ML/MIN/1.73 = 14581) eGFR NON- AMER. (test 97 ML/MIN/1.73 code = 45786) CALC BUN/CREAT (test code = 12 RATIO 2235) SODIUM (test code = 2231) 138 MEQ/L POTASSIUM (test code = 2228) 3.8 MEQ/L CHLORIDE (test code = 2215) 100 MEQ/L CARBON DIOXIDE (test code = 27 MEQ/L 2206) CALCIUM (test code = 2209) 9.3 MG/DL PROTEIN, TOTAL (test code = 7.4 G/DL 9) ALBUMIN (test code = 2201) 4.5 G/DL CALC GLOBULIN (test code = 2.9 G/DL 2240) CALC A/G RATIO (test code = 1.6 RATIO 2234) BILIRUBIN, TOTAL (test code = 0.3 MG/DL 2206) ALKALINE PHOSPHATASE (test 142 U/L code = 2204) AST (test code = 2218) 15 U/L ALT (test code = 2219) 19 U/L LIPID [id number] 00:00:00 Test Item Value Reference Range Interpretation Comments CHOLESTEROL (test code = 2210) 131 MG/DL TRIGLYCERIDES (test code = 2232) 225 MG/DL HDL CHOLESTEROL (test code = 2220) 41 MG/DL CALC LDL CHOL (test code = 2237) 62 MG/DL RISK RATIO LDL/HDL (test code = 1.51 RATIO 2238) LIPID [id number] 00:00:00 Test Item Value Reference Range Interpretation Comments CHOLESTEROL (test code = 2210) 131 MG/DL TRIGLYCERIDES (test code = 2232) 225 MG/DL HDL CHOLESTEROL (test code = 2220) 41 MG/DL CALC LDL CHOL (test code = 2237) 62 MG/DL RISK RATIO LDL/HDL (test code = 1.51 RATIO 2238) LIPID [id number] 00:00:00 Test Item Value Reference Range Interpretation Comments CHOLESTEROL (test code = 2210) 131 MG/DL TRIGLYCERIDES (test code = 2232) 225 MG/DL HDL CHOLESTEROL (test code = 2220) 41 MG/DL CALC LDL CHOL (test code = 2237) 62 MG/DL RISK RATIO LDL/HDL (test code = 1.51 RATIO 2238) HEMOGLOBIN [id number] 00:00:00 Test Item Value Reference Range Interpretation Comments HEMOGLOBIN A1c (test code = 71902) 8.4 % HEMOGLOBIN [id number] 00:00:00 Test Item Value Reference Range Interpretation Comments HEMOGLOBIN A1c (test code = 73788) 8.4 % HEMOGLOBIN [id number] 00:00:00 Test Item Value Reference Range Interpretation Comments HEMOGLOBIN A1c (test code = 31049) 8.4 % [id number] 00:00:00 Test Item Value Reference Range Interpretation Comments TSH, THIRD GENERATION (test code 1.280 UIU/ML = 2821) [id number] 00:00:00 Test Item Value Reference Range Interpretation Comments TSH, THIRD GENERATION (test code 1.280 UIU/ML = 2821) [id number] 00:00:00 Test Item Value Reference Range Interpretation Comments TSH, THIRD GENERATION (test code 1.280 UIU/ML = 2821) HEMOGLOBIN [id number] 00:00:00 Test Item Value Reference Range Interpretation Comments HEMOGLOBIN A1c (test code = 07745) 8.4 % HEMOGLOBIN [id number] 00:00:00 Test Item Value Reference Range Interpretation Comments HEMOGLOBIN A1c (test code = 45747) 8.4 % [id number] 00:00:00 Test Item Value Reference Range Interpretation Comments TSH, THIRD GENERATION (test code 1.280 UIU/ML = 2821) [id number] 00:00:00 Test Item Value Reference Range Interpretation Comments TSH, THIRD GENERATION (test code 1.280 UIU/ML = 2821) CBC W/AUTO [id number] 00:00:00 Test Item Value Reference Range Interpretation [...] code = 1015) 383 K/UL CBC W/AUTO [id number] 00:00:00 Test Item Value Reference Range Interpretation [...] code = 1015) 383 K/UL CBC W/AUTO [id number] 00:00:00 Test Item Value Reference Range Interpretation [...] code = 1015) 383 K/UL COMPREHENSIVE METABOLIC [id number] 00:00:00 Test Item Value Reference Range Interpretation Comments GLUCOSE (test code = 2217) 198 MG/DL BUN (test code = 2208) 8 MG/DL CREATININE (test code = 2214) 0.69 MG/DL eGFR AMER. (test code 112 ML/MIN/1.73 = 59830) eGFR NON- AMER. (test 97 ML/MIN/1.73 code = 96217) CALC BUN/CREAT (test code = 12 RATIO 2235) SODIUM (test code = 2231) 138 MEQ/L POTASSIUM (test code = 2228) 3.8 MEQ/L CHLORIDE (test code = 2215) 100 MEQ/L CARBON DIOXIDE (test code = 27 MEQ/L 2206) CALCIUM (test code = 2209) 9.3 MG/DL PROTEIN, TOTAL (test code = 7.4 G/DL 2228) ALBUMIN (test code = 2201) 4.5 G/DL CALC GLOBULIN (test code = 2.9 G/DL 2240) CALC A/G RATIO (test code = 1.6 RATIO 2234) BILIRUBIN, TOTAL (test code = 0.3 MG/DL 2207) ALKALINE PHOSPHATASE (test 142 U/L code = 2204) AST (test code = 2218) 15 U/L ALT (test code = 2219) 19 U/L COMPREHENSIVE METABOLIC [id number] 00:00:00 Test Item Value Reference Range Interpretation Comments GLUCOSE (test code = 2217) 198 MG/DL BUN (test code = 2208) 8 MG/DL CREATININE (test code = 2214) 0.69 MG/DL eGFR AMER. (test code 112 ML/MIN/1.73 = 49178) eGFR NON- AMER. (test 97 ML/MIN/1.73 code = 92032) CALC BUN/CREAT (test code = 12 RATIO 2235) SODIUM (test code = 2231) 138 MEQ/L POTASSIUM (test code = 2228) 3.8 MEQ/L CHLORIDE (test code = 2215) 100 MEQ/L CARBON DIOXIDE (test code = 27 MEQ/L 220) CALCIUM (test code = 2209) 9.3 MG/DL PROTEIN, TOTAL (test code = 7.4 G/DL 2228) ALBUMIN (test code = 2201) 4.5 G/DL CALC GLOBULIN (test code = 2.9 G/DL 2240) CALC A/G RATIO (test code = 1.6 RATIO 2234) BILIRUBIN, TOTAL (test code = 0.3 MG/DL 2206) ALKALINE PHOSPHATASE (test 142 U/L code = 2204) AST (test code = 2218) 15 U/L ALT (test code = 2219) 19 U/L LIPID [id number] 00:00:00 Test Item Value Reference Range Interpretation Comments CHOLESTEROL (test code = 2210) 131 MG/DL TRIGLYCERIDES (test code = 2232) 225 MG/DL HDL CHOLESTEROL (test code = 2220) 41 MG/DL CALC LDL CHOL (test code = 2237) 62 MG/DL RISK RATIO LDL/HDL (test code = 1.51 RATIO 2238) LIPID [id number] 00:00:00 Test Item Value Reference Range Interpretation Comments CHOLESTEROL (test code = 2210) 131 MG/DL TRIGLYCERIDES (test code = 2232) 225 MG/DL HDL CHOLESTEROL (test code = 2220) 41 MG/DL CALC LDL CHOL (test code = 2237) 62 MG/DL RISK RATIO LDL/HDL (test code = 1.51 RATIO 2238) HEMOGLOBIN [id number] 00:00:00 Test Item Value Reference Range Interpretation Comments HEMOGLOBIN A1c (test code = 29201) 8.4 % HEMOGLOBIN [id number] 00:00:00 Test Item Value Reference Range Interpretation Comments HEMOGLOBIN A1c (test code = 55859) 8.4 % HEMOGLOBIN [id number] 00:00:00 Test Item Value Reference Range Interpretation Comments HEMOGLOBIN A1c (test code = 64225) 8.4 % [id number] 00:00:00 Test Item Value Reference Range Interpretation Comments TSH, THIRD GENERATION (test code 1.280 UIU/ML = 2821) [id number] 00:00:00 Test Item Value Reference Range Interpretation Comments TSH, THIRD GENERATION (test code 1.280 UIU/ML = 2821) [id number] 00:00:00 Test Item Value Reference Range Interpretation Comments TSH, THIRD GENERATION (test code 1.280 UIU/ML = 2821) CBC W/AUTO [id number] 00:00:00 Test Item Value Reference Range Interpretation [...] code = 1015) 383 K/UL CBC W/AUTO [id number] 00:00:00 Test Item Value Reference Range Interpretation [...] code = 1015) 383 K/UL CBC W/AUTO [id number] 00:00:00 Test Item Value Reference Range Interpretation [...] code = 1015) 383 K/UL COMPREHENSIVE METABOLIC [id number] 00:00:00 Test Item Value Reference Range Interpretation Comments GLUCOSE (test code = 2217) 198 MG/DL BUN (test code = 2208) 8 MG/DL CREATININE (test code = 2214) 0.69 MG/DL eGFR AMER. (test code 112 ML/MIN/1.73 = 45101) eGFR NON- AMER. (test 97 ML/MIN/1.73 code = 34935) CALC BUN/CREAT (test code = 12 RATIO [...] CALC GLOBULIN (test code = 2.9 G/DL 2240) CALC A/G RATIO (test code = 1.6 RATIO 2234) BILIRUBIN, TOTAL (test code = 0.3 MG/DL 2206) ALKALINE PHOSPHATASE (test 142 U/L code = 2204) AST (test code = 2218) 15 U/L ALT (test code = 2219) 19 U/L COMPREHENSIVE METABOLIC [id number] 00:00:00 Test Item Value Reference Range Interpretation Comments GLUCOSE (test code = 2217) 198 MG/DL BUN (test code = 2208) 8 MG/DL CREATININE (test code = 2214) 0.69 MG/DL eGFR AMER. (test code 112 ML/MIN/1.73 = 85585) eGFR NON- AMER. (test 97 ML/MIN/1.73 code = 00144) CALC BUN/CREAT (test code = 12 RATIO 2235) SODIUM (test code = 2231) 138 MEQ/L POTASSIUM (test code = 2228) 3.8 MEQ/L CHLORIDE (test code = 2215) 100 MEQ/L CARBON DIOXIDE (test code = 27 MEQ/L 220) CALCIUM (test code = 2209) 9.3 MG/DL PROTEIN, TOTAL (test code = 7.4 G/DL 2228) ALBUMIN (test code = 2201) 4.5 G/DL CALC GLOBULIN (test code = 2.9 G/DL 2240) CALC A/G RATIO (test code = 1.6 RATIO 2234) BILIRUBIN, TOTAL (test code = 0.3 MG/DL 2206) ALKALINE PHOSPHATASE (test 142 U/L code = 2204) AST (test code = 2218) 15 U/L ALT (test code = 2219) 19 U/L LIPID [id number] 00:00:00 Test Item Value Reference Range Interpretation Comments CHOLESTEROL (test code = 2210) 131 MG/DL TRIGLYCERIDES (test code = 2232) 225 MG/DL HDL CHOLESTEROL (test code = 2220) 41 MG/DL CALC LDL CHOL (test code = 2237) 62 MG/DL RISK RATIO LDL/HDL (test code = 1.51 RATIO 2238) LIPID [id number] 00:00:00 Test Item Value Reference Range Interpretation Comments CHOLESTEROL (test code = 2210) 131 MG/DL TRIGLYCERIDES (test code = 2232) 225 MG/DL HDL CHOLESTEROL (test code = 2220) 41 MG/DL CALC LDL CHOL (test code = 2237) 62 MG/DL RISK RATIO LDL/HDL (test code = 1.51 RATIO 2238) HEMOGLOBIN [id number] 00:00:00 Test Item Value Reference Range Interpretation Comments HEMOGLOBIN A1c (test code = 26425) 8.4 % HEMOGLOBIN [id number] 00:00:00 Test Item Value Reference Range Interpretation Comments HEMOGLOBIN A1c (test code = 72843) 8.4 % HEMOGLOBIN [id number] 00:00:00 Test Item Value Reference Range Interpretation Comments HEMOGLOBIN A1c (test code = 64638) 8.4 % [id number] 00:00:00 Test Item Value Reference Range Interpretation Comments TSH, THIRD GENERATION (test code 1.280 UIU/ML = 2821) [id number] 00:00:00 Test Item Value Reference Range Interpretation Comments TSH, THIRD GENERATION (test code 1.280 UIU/ML = 2821) [id number] 00:00:00 Test Item Value Reference Range Interpretation Comments TSH, THIRD GENERATION (test code 1.280 UIU/ML = 2821) CBC W/AUTO [id number] 00:00:00 Test Item Value Reference Range Interpretation [...] code = 1015) 383 K/UL CBC W/AUTO [id number] 00:00:00 Test Item Value Reference Range Interpretation [...] code = 1015) 383 K/UL CBC W/AUTO [id number] 00:00:00 Test Item Value Reference Range Interpretation [...] code = 1015) 383 K/UL COMPREHENSIVE METABOLIC [id number] 00:00:00 Test Item Value Reference Range Interpretation Comments GLUCOSE (test code = 2217) 198 MG/DL BUN (test code = 2208) 8 MG/DL CREATININE (test code = 2214) 0.69 MG/DL eGFR AMER. (test code 112 ML/MIN/1.73 = 10935) eGFR NON- AMER. (test 97 ML/MIN/1.73 code = 89455) CALC BUN/CREAT (test code = 12 RATIO 2235) SODIUM (test code = 2231) 138 MEQ/L POTASSIUM (test code = 2228) 3.8 MEQ/L CHLORIDE (test code = 2215) 100 MEQ/L CARBON DIOXIDE (test code = 27 MEQ/L 220) CALCIUM (test code = 2209) 9.3 MG/DL PROTEIN, TOTAL (test code = 7.4 G/DL 2229) ALBUMIN (test code = 2201) 4.5 G/DL CALC GLOBULIN (test code = 2.9 G/DL 2240) CALC A/G RATIO (test code = 1.6 RATIO 2234) BILIRUBIN, TOTAL (test code = 0.3 MG/DL 2206) ALKALINE PHOSPHATASE (test 142 U/L code = 2204) AST (test code = 2218) 15 U/L ALT (test code = 2219) 19 U/L COMPREHENSIVE METABOLIC [id number] 00:00:00 Test Item Value Reference Range Interpretation Comments GLUCOSE (test code = 2217) 198 MG/DL BUN (test code = 2208) 8 MG/DL CREATININE (test code = 2214) 0.69 MG/DL eGFR AMER. (test code 112 ML/MIN/1.73 = 94494) eGFR NON- AMER. (test 97 ML/MIN/1.73 code = 03074) CALC BUN/CREAT (test code = 12 RATIO [...] CALC GLOBULIN (test code = 2.9 G/DL 2240) CALC A/G RATIO (test code = 1.6 RATIO 2234) BILIRUBIN, TOTAL (test code = 0.3 MG/DL 7) ALKALINE PHOSPHATASE (test 142 U/L code = 2204) AST (test code = 2218) 15 U/L ALT (test code = 2219) 19 U/L LIPID [id number] 00:00:00 Test Item Value Reference Range Interpretation Comments CHOLESTEROL (test code = 2210) 131 MG/DL TRIGLYCERIDES (test code = 2232) 225 MG/DL HDL CHOLESTEROL (test code = 2220) 41 MG/DL CALC LDL CHOL (test code = 2237) 62 MG/DL RISK RATIO LDL/HDL (test code = 1.51 RATIO 2238) LIPID [id number] 00:00:00 Test Item Value Reference Range Interpretation Comments CHOLESTEROL (test code = 2210) 131 MG/DL TRIGLYCERIDES (test code = 2232) 225 MG/DL HDL CHOLESTEROL (test code = 2220) 41 MG/DL CALC LDL CHOL (test code = 2237) 62 MG/DL RISK RATIO LDL/HDL (test code = 1.51 RATIO 2238) HEMOGLOBIN [id number] 00:00:00 Test Item Value Reference Range Interpretation Comments HEMOGLOBIN A1c (test code = 79402) 8.4 % HEMOGLOBIN [id number] 00:00:00 Test Item Value Reference Range Interpretation Comments HEMOGLOBIN A1c (test code = 77890) 8.4 % HEMOGLOBIN [id number] 00:00:00 Test Item Value Reference Range Interpretation Comments HEMOGLOBIN A1c (test code = 32830) 8.4 % [id number] 00:00:00 Test Item Value Reference Range Interpretation Comments TSH, THIRD GENERATION (test code 1.280 UIU/ML = 2821) [id number] 00:00:00 Test Item Value Reference Range Interpretation Comments TSH, THIRD GENERATION (test code 1.280 UIU/ML = 2821) [id number] 00:00:00 Test Item Value Reference Range Interpretation Comments TSH, THIRD GENERATION (test code 1.280 UIU/ML = 2821) CBC W/AUTO [id number] 00:00:00 Test Item Value Reference Range Interpretation [...] code = 1015) 383 K/UL CBC W/AUTO [id number] 00:00:00 Test Item Value Reference Range Interpretation [...] code = 1015) 383 K/UL CBC W/AUTO [id number] 00:00:00 Test Item Value Reference Range Interpretation [...] code = 1015) 383 K/UL COMPREHENSIVE METABOLIC [id number] 00:00:00 Test Item Value Reference Range Interpretation Comments GLUCOSE (test code = 2217) 198 MG/DL BUN (test code = 2208) 8 MG/DL CREATININE (test code = 2214) 0.69 MG/DL eGFR AMER. (test code 112 ML/MIN/1.73 = 03151) eGFR NON- AMER. (test 97 ML/MIN/1.73 code = 73356) CALC BUN/CREAT (test code = 12 RATIO 2235) SODIUM (test code = 2231) 138 MEQ/L POTASSIUM (test code = 2228) 3.8 MEQ/L CHLORIDE (test code = 2215) 100 MEQ/L CARBON DIOXIDE (test code = 27 MEQ/L 220) CALCIUM (test code = 2209) 9.3 MG/DL PROTEIN, TOTAL (test code = 7.4 G/DL 2228) ALBUMIN (test code = 2201) 4.5 G/DL CALC GLOBULIN (test code = 2.9 G/DL 2240) CALC A/G RATIO (test code = 1.6 RATIO 2234) BILIRUBIN, TOTAL (test code = 0.3 MG/DL 2206) ALKALINE PHOSPHATASE (test 142 U/L code = 2204) AST (test code = 2218) 15 U/L ALT (test code = 2219) 19 U/L COMPREHENSIVE METABOLIC [id number] 00:00:00 Test Item Value Reference Range Interpretation Comments GLUCOSE (test code = 2217) 198 MG/DL BUN (test code = 2208) 8 MG/DL CREATININE (test code = 2214) 0.69 MG/DL eGFR AMER. (test code 112 ML/MIN/1.73 = 23961) eGFR NON- AMER. (test 97 ML/MIN/1.73 code = 57504) CALC BUN/CREAT (test code = 12 RATIO 2235) SODIUM (test code = 2231) 138 MEQ/L POTASSIUM (test code = 2228) 3.8 MEQ/L CHLORIDE (test code = 2215) 100 MEQ/L CARBON DIOXIDE (test code = 27 MEQ/L 2206) CALCIUM (test code = 2209) 9.3 MG/DL PROTEIN, TOTAL (test code = 7.4 G/DL 2228) ALBUMIN (test code = 2201) 4.5 G/DL CALC GLOBULIN (test code = 2.9 G/DL 2240) CALC A/G RATIO (test code = 1.6 RATIO 2234) BILIRUBIN, TOTAL (test code = 0.3 MG/DL 2206) ALKALINE PHOSPHATASE (test 142 U/L code = 2204) AST (test code = 2218) 15 U/L ALT (test code = 2219) 19 U/L LIPID [id number] 00:00:00 Test Item Value Reference Range Interpretation Comments CHOLESTEROL (test code = 2210) 131 MG/DL TRIGLYCERIDES (test code = 2232) 225 MG/DL HDL CHOLESTEROL (test code = 2220) 41 MG/DL CALC LDL CHOL (test code = 2237) 62 MG/DL RISK RATIO LDL/HDL (test code = 1.51 RATIO 2238) LIPID [id number] 00:00:00 Test Item Value Reference Range Interpretation Comments CHOLESTEROL (test code = 2210) 131 MG/DL TRIGLYCERIDES (test code = 2232) 225 MG/DL HDL CHOLESTEROL (test code = 2220) 41 MG/DL CALC LDL CHOL (test code = 2237) 62 MG/DL RISK RATIO LDL/HDL (test code = 1.51 RATIO 2238) HEMOGLOBIN [id number] 00:00:00 Test Item Value Reference Range Interpretation Comments HEMOGLOBIN A1c (test code = 73584) 8.4 % HEMOGLOBIN [id number] 00:00:00 Test Item Value Reference Range Interpretation Comments HEMOGLOBIN A1c (test code = 28243) 8.4 % HEMOGLOBIN [id number] 00:00:00 Test Item Value Reference Range Interpretation Comments HEMOGLOBIN A1c (test code = 54054) 8.4 % [id number] 00:00:00 Test Item Value Reference Range Interpretation Comments TSH, THIRD GENERATION (test code 1.280 UIU/ML = 2821) [id number] 00:00:00 Test Item Value Reference Range Interpretation Comments TSH, THIRD GENERATION (test code 1.280 UIU/ML = 2821) [id number] 00:00:00 Test Item Value Reference Range Interpretation Comments TSH, THIRD GENERATION (test code 1.280 UIU/ML = 2821) ISLET CELL AB [id number] 07:43:00 Test Item Value Reference Range Interpretation Comments ISLET CELL AB Refer to individual AUTOVERIFICATION (test Islet Cell Ab code = 2556) and/or Islet Cell Ab Titer results. POCT-GLUCOSE [id number] 12:34:00 Test Item Value Reference Range Interpretation Comments POC-GLUCOSE METER 208 mg/dL 70-110 H : TESTED A T [facility] 67[address] (BEAKER) (test code = ELMO [place], 1538) [address]: Personal Lines Sales Executive/Techni john ID = [id number] for Guy MORRIS POCT-GLUCOSE [id number] 08:26:00 Test Item Value Reference Range Interpretation Comments POC-GLUCOSE METER 145 mg/dL 70-110 H : TESTED A T [facility] [address] (BEAKER) (test code = ELMO Miranda [place], 1538) 35[address]: Personal Lines Sales Executive/Techni john ID = [id number] for HILARY ALBARRAN [id number] 06:31:00 Test Item Value Reference Range Interpretation Comments MAGNESIUM (BEAKER) (test code = 1.6 mg/dL 1.6-2.6 627) BUN AND [id number] 06:31:00 Test Item Value Reference Range Interpretation [...] APPLICABLE FOR DIALYSIS PATIEN TS. BASIC METABOLIC [id number] 06:31:00 Test Item Value Reference Range Interpretation [...] 0-0 (BEAKER) (test code = 413) POCT-GLUCOSE [id number] 22:02:00 Test Item Value Reference Range Interpretation Comments POC-GLUCOSE METER 214 mg/dL 70-110 H : TESTED A T [facility] 67[address] (BEAKER) (test code = [employer] [place], 1538) [address]: Personal Lines Sales Executive/Techni john ID = [id number] for KAREN TEIXEIRA POCT-GLUCOSE [id number] 17:34:00 Test Item Value Reference Range Interpretation Comments POC-GLUCOSE METER 178 mg/dL 70-110 H : TESTED A T [facility] [address] (BEAKER) (test code = [employer] [place], 1538) 532[address]: Personal Lines Sales Executive/Techni john ID = [id number] for Guy MORRIS POCT-GLUCOSE [id number] 17:33:00 Test Item Value Reference Range Interpretation Comments POC-GLUCOSE METER 222 mg/dL 70-110 H : TESTED A T [facility] [address] (BEAKER) (test code = ELMO Miranda [facility], 1538) 80815: Personal Lines Sales Executive/Techni john ID = [id number] for SRIKANTH FIGUEROA POCT-GLUCOSE [id number] 08:07:00 Test Item Value Reference Range Interpretation Comments POC-GLUCOSE METER 174 mg/dL 70-110 H : TESTED A T [facility] [address] (BEAKER) (test code = [facility] Ruth [facility], 1538) 27813: Personal Lines Sales Executive/Techni john ID = [id number] for SRIKANTH FIGUEROA RAD, CHEST, 1 VIEW, NON [id number] 08:04:00Reason for exam:->CIED ImplantationIs the patient ?->UnknownShould [...] MDReport Verified Date/Time: 04/27/2019 08:04:20 Reading [facility] C013V Neuro Reading Room [id number] 06:48:00 Test Item Value Reference Range Interpretation Comments MAGNESIUM (BEAKER) (test code = 1.7 mg/dL 1.6-2.6 627) BUN AND [id number] 06:48:00 Test Item Value Reference Range Interpretation [...] APPLICABLE FOR DIALYSIS PATIEN TS. BASIC METABOLIC [id number] 06:48:00 Test Item Value Reference Range Interpretation [...] 0-0 (BEAKER) (test code = 413) POCT-GLUCOSE [id number] 21:23:00 Test Item Value Reference Range Interpretation Comments POC-GLUCOSE METER 209 mg/dL 70-110 H : TESTED A T [facility] [address] (BEAKER) (test code = [facility], 1538) 078[address]: Personal Lines Sales Executive/Techni john ID = [id number] for KAREN TEIXEIRA POCT-GLUCOSE [id number] 18:13:00 Test Item Value Reference Range Interpretation Comments POC-GLUCOSE METER 280 mg/dL 70-110 H : TESTED A T [facility] 67[address] ([facility]) (test code [facility], = 1538) 22562: Personal Lines Sales Executive/Techni john ID = [id number] for GEOFF SEVERINO RAD, CHEST, 1 VIEW, NON [id number] 14:36:00Reason for exam:->CIED ImplantationShould this be performed at the bedside?->YesFINAL REPORT INDICATION: CIED Implantation COMPARISON: None TECHNIQUE: Single fr ontal view of the chest. FINDINGS: Lungs and pleura: Lungs are hypoinflated. No effusion.Heart and mediastinum: Normal heart size. Unremarkable mediastinal contours.Osseous structures: No acute abnormality.Other: Pacer device. IMPRESSION: No pneumothorax Signed: Rowena Lay Verified Date/Time: 04/26/2019 14:36:47 Reading Location: [facility] Radiology Reading Room -GLUCOSE [id number] 10:40:00 Test Item Value Reference Range Interpretation Comments POC-GLUCOSE METER 204 mg/dL 70-110 H : TESTED A T [facility] [address] (BEAKER) (test code = [facility], 1538) 55027: Personal Lines Sales Executive/Techni john ID = [id number] for JOURDAN ESCALANTE [id number] 04:42:00 Test Item Value Reference Range Interpretation Comments MAGNESIUM (BEAKER) (test code = 1.8 mg/dL 1.6-2.6 627) BASIC METABOLIC [id number] 04:42:00 Test Item Value Reference Range Interpretation [...] 0-0 (BEAKER) (test code = 413) POCT-GLUCOSE [id number] 21:56:00 Test Item Value Reference Range Interpretation Comments POC-GLUCOSE METER 381 mg/dL 70-110 H : Notified RN/MD: ([facility]) (test code = TESTED AT [facility] 67[address] 1538) [facility], [address]: Personal Lines Sales Executive/Techni john ID = [id number] for SONIA MAHER TROPONIN [id number] 17:20:00 Test Item Value Reference Range Interpretation [...] acidosis, acute neurological disease, and persistent tachyarrhythmia.POCT-GLUCOSE [id number] 11:55:00 Test Item Value Reference Range Interpretation Comments POC-GLUCOSE METER 163 mg/dL 70-110 H : TESTED A T [facility] [address] ([facility]) (test code = ELMO Miranda [facility], 1538) 23221: Personal Lines Sales Executive/Techni john ID = [id number] for TELMA MARIN CREATINE KINASE (CK)2019-04-25 11:26:00 Test Item Value Reference Range Interpretation Comments CREATINE KINASE TOTAL (BEAKER) (test 63 U/L 29-200 code = 380) TROPONIN [id number] 10:05:00 Test Item Value Reference Range Interpretation [...] acidosis, acute neurological disease, and persistent tachyarrhythmia.POCT-GLUCOSE [id number] 08:18:00 Test Item Value Reference Range Interpretation Comments POC-GLUCOSE METER 163 mg/dL 70-110 H : TESTED A T [facility] [address] (BEAKER) (test code = [place], 1538) 75[address]: Personal Lines Sales Executive/Techni john ID = [id number] for TELMA MARIN TROPONIN [id number] 06:47:00 Test Item Value Reference Range Interpretation [...] failure, acidosis, acute neurological disease, and persistent tachyarrhythmia.[id number] 06:41:00 Test Item Value Reference Range Interpretation Comments MAGNESIUM (BEAKER) 2.4 mg/dL 1.6-2.6 Specimen slightly (test code = 627) hemolyzed BASIC METABOLIC [id number] 06:41:00 Test Item Value Reference Range Interpretation [...] NOT APPLICABLE FOR DIALYSIS PATIEN TS. LIPID [id number] 06:41:00 Test Item Value Reference Range Interpretation [...] 100-129 Borderline 130-159 High 160-189 Very High >=[id number] 06:07:00 Test Item Value Reference Range Interpretation [...] = 413) RAD, CHEST, 1 VIEW, NON [id number] 01:00:00Reason for exam:->transvenous PM placementShould this be [...] Additional findings: None available. Signed: Lucy [facility] Verified Date/Time: 04/25/2019 01:00:56 TROPOGUILLERMINA [id number] 23:56:00 Test Item Value Reference Range Interpretation [...] failure, acidosis, acute neurological disease, and persistent tachyarrhythmia.[id number] 23:47:00 Test Item Value Reference Range Interpretation Comments MAGNESIUM (BEAKER) 1.6 mg/dL 1.6-2.6 Specimen slightly (test code = 627) hemolyzed [id number] 23:47:00 Test Item Value Reference Range Interpretation Comments PHOSPHORUS (BEAKER) 3.2 mg/dL 2.3-4.7 Specimen slightly (test code = 604) hemolyzed COMPREHENSIVE METABOLIC [id number] 23:47:00 Test Item Value Reference Range Interpretation [...] S NOT APPLICABLE FOR DIALYSIS PATIEN TS. [id number] 23:41:00 Test Item Value Reference Range Interpretation [...] heart valves.Prior to initiating heparinPrior to initiating [id number] 23:41:00 Test Item Value Reference Range Interpretation Comments PARTIAL THROMBOPLASTIN TIME 31.1 seconds 22.5-36.0 (BEAKER) (test code = 760) LACTIC ACID, [id number] 23:41:00 Test Item Value Reference Range Interpretation Comments LACTATE BLOOD VENOUS 1.1 mmol/L 0.5-2.2 Specime n slightly (2) (BEAKER) (test hemolyzed code = 1922) PLATELET [id number] 23:31:00 Test Item Value Reference Range Interpretation Comments PLATELET COUNT (BEAKER) (test 348 K/CU MM 150-450 code = 756) POCT-GLUCOSE [id number] 23:27:00 Test Item Value Reference Range Interpretation Comments POC-GLUCOSE METER 244 mg/dL 70-110 H : TESTED A T [facility] [address]20 (LANAKER) (test code = ELMO CARTY DE, 1538) [id number]: Personal Lines Sales Executive/Techni john ID = [id number] for MARQUITA AGUILERA [id number] 18:39:00 Test Item Value Reference Range Interpretation Comments ACTIVATED CLOTTING TIME 301 sec Refe rence Range: 74-137 (BEAKER) (test code = second s, 441) Baseline/TESTED AT [facility] [address] [facility] [id number] 18:04:00 Test Item Value Reference Range Interpretation Comments ACTIVATED CLOTTING TIME 252 sec Refe rence Range: 74-137 (BEAKER) (test code = second s, 441) Baseline/TESTED AT [address] [address] [id number] 17:49:00 Test Item Value Reference Range Interpretation Comments ACTIVATED CLOTTING TIME 235 sec Refe rence Range: 74-137 (BEAKER) (test code = second s, 441) Baseline/TESTED AT [address] [address] POCT-GLUCOSE [id number] 13:18:00 Test Item Value Reference Range Interpretation Comments POC-GLUCOSE METER 187 mg/dL 70-110 H : TESTED A T [place] [address] (BEAKER) (test code = [facility], 1538) [address]: Personal Lines Sales Executive/Techni john ID = [id number] for OR ANANDA FERRARA [id number] 12:52:00 Test Item Value Reference Range Interpretation Comments PARTIAL THROMBOPLASTIN TIME 42.7 seconds 22.5-36.0 H (BEAKER) (test code = 760) POCT-GLUCOSE [id number] 09:59:00 Test Item Value Reference Range Interpretation Comments POC-GLUCOSE METER 252 mg/dL 70-110 H : TESTED A T [place] [address] (BEAKER) (test code = [facility], 1538) [address]: Personal Lines Sales Executive/Techni john ID = [id number] for OR ANANDA FERRARA HEMOGLOBIN [id number] 08:35:00 Test Item Value Reference Range Interpretation Comments HEMOGLOBIN A1C (BEAKER) (test code = 11.5 % 4.3-6.1 H 368) [id number] 06:09:00 Test Item Value Reference Range Interpretation Comments PARTIAL THROMBOPLASTIN TIME 39.5 seconds 22.5-36.0 H (BEAKER) (test code = 760) BASIC METABOLIC [id number] 23:24:00 Test Item Value Reference Range Interpretation Comments SODIUM (BEAKER) 136 meq/L 136-145 (test code = 381) POTASSIUM (BEAKER) 3.5 meq/L 3.5-5.1 (test code = 379) CHLORIDE (BEAKER) 105 meq/L 98-107 (test code = 382) CO2 (BEAKER) (test 23 meq/L - code = 355) BLOOD UREA NITROGEN 13 [...] S NOT APPLICABLE FOR DIALYSIS PATIEN TS. [id number] 23:15:00 Test Item Value Reference Range Interpretation Comments PARTIAL THROMBOPLASTIN TIME 28.7 seconds 22.5-36.0 (BEAKER) (test code = 760) Prior to initiating heparinPROTHROMBIN [id number] 23:14:00 Test Item Value Reference Range Interpretation [...] per sliding scaleCBC W/PLT COUNT & AUTO [id number] 23:10:00 Test Item Value Reference Range Interpretation [...] PERCENT (BEAKER) (test code = 2801) POCT-GLUCOSE [id number] 22:59:00 Test Item Value Reference Range Interpretation Comments POC-GLUCOSE METER 194 mg/dL 70-110 H : TESTED A T [facility] 6720 (BEAKER) (test code = [facility] [place], 1538) [address]: Personal Lines Sales Executive/Techni john ID = [id number] for Mary Kate Mccoy
[2022-05-04] MEDS ORDERED: METHYLPREDNISOLONE 125 MG INJ ONE (18:43)
[2022-05-04] MEDS ORDERED: ALBUTEROL 2.5 MG/3 ML NEB SOL ONE (18:44)
[2022-05-04] MEDS ORDERED: IPRATROPIUM BROM 0.5MG/2.5ML ONE (18:44)
[2022-05-04] MEDS ORDERED: ACETAMINOPHEN 500 MG TAB ONE (19:15)
[2022-05-04 19:22] LABS: Absolute Lymphocytes (CBC) 0.5 K/uL (0.7-4.9); Hematocrit 34.8 % (36.0-45.0); Lymphocytes % 7.2 % (15.3-44.8); MCV 83.5 fL (80-100); MPV 7.4 fL (7.6-11.3); RBC Red Blood Cell Count 4.17 M/uL (3.86-4.86)
--- NOTE | 2022-05-04 19:22 | RAD REPORT ---
EXAM DESCRIPTION: Elsa Single View05/04/2022 6:56 pm CLINICAL HISTORY: Cough COMPARISON: January 2022 FINDINGS: The lungs appear clear of acute infiltrate. The heart is borderline enlarged. Pacemaker l antwan in place Scoliosis involves the spine IMPRESSION: No acute abnormalities displayed
[2022-05-04 19:38] LABS: Albumin 3.3 g/dL (3.4-5.0); Bilirubin Total 0.5 mg/dL (0.2-1.0); Protein, Total 7.1 g/dL (6.4-8.2); Troponin High Sensitivity 12.9 pg/mL (<58.9)
[2022-05-04 20:05] LABS: SARS-COV-2 RT PCR NEGATIVE (NEGATIVE)
[2022-05-04] MEDS ORDERED: POTASSIUM CL SA 10 MEQ TAB PO ONE (20:27)
--- NOTE | 2022-05-04 20:37 | EDPHYS ---
Physician Documentation [facility] Name: Blanca Estrada Age: 62 yrs Sex: Female : 1960 Arrival Date: 05/04/2022 Time: 18:17 Bed 14 Private MD: ED Physician Junie Holley HPI: 05/04 18:52 This 62 yrs old Female presents to ER via EMS with complaints of Cough. rt 18:52 The patient or guardian reports cough. Onset: The symptoms/episode began/occurred rt yesterday. Severity of symptoms: At their worst the symptoms were moderate. Modifying factors: The symptoms are alleviated by nebulizer treatment, the symptoms are aggravated by nothing. Patient who smokes a pack of day presents to the ED with cough, congestion, sore throat, generally feeling ill starting yesterday. She has an associated cough with mild dyspnea. The patient reports a pleuritic chest pain but no pain while she is not coughing. Reports a headache, denies other acute complaints at this time. Symptoms are moderate severity, no other aggravating or alleviating factors.. Historical: - Allergies: 18:19 No Known Allergies; bp - Home Meds: 18:19 lisinopril 40 mg Oral tab 1 tab once daily [Active]; pantoprazole 40 mg Oral TbEC 1 tab bp once daily [Active]; hydralazine 100 mg Oral tab 1 tab 3 times per day [Active]; carvedilol 25 mg Oral tab 1 tab 2 times per day [Active]; levemir 3ML nightly [Active]; atorvastatin 80 mg Oral tab 1 tab once daily [Active]; - PMHx: 18:19 CAD; Clots in the past; CVA; Diabetes - IDDM; Hyperlipidemia; Hypertension; Myocardial bp infarction; - PSHx: 18:19 Brain; pacemaker; Stented artery; bp - Immunization history:: Adult Immunizations up to date. - Social history:: Smoking status: Patient denies any tobacco usage or history of. ROS: 18:53 Constitutional: Negative for fever, chills, and weight loss, Eyes: Negative for injury, rt pain, redness, and discharge, ENT: Negative for injury, pain, and discharge, Neck: Negative for injury, pain, and swelling, Abdomen/GI: Negative for abdominal pain, nausea, vomiting, diarrhea, and constipation, MS/Extremity: Negative for injury and deformity, Skin: Negative for injury, rash, and discoloration, Psych: Negative for depression, anxiety, suicide ideation, homicidal ideation, and hallucinations. 18:53 Cardiovascular: Negative for edema, palpitations. 18:53 Respiratory: Positive for cough, pleurisy. 18:53 Neuro: Positive for headache, Negative for altered mental status. Exam: 18:53 Constitutional: This is a well developed, well nourished patient who is awake, alert, rt and in no acute distress. Head/Face: Normocephalic, atraumatic. Eyes: Pupils equal round and reactive to light, extra-ocular motions intact. Lids and lashes normal. Conjunctiva and sclera are non-icteric and not injected. Cornea within normal limits. Periorbital areas with no swelling, redness, or edema. ENT: Nares patent. No nasal discharge, no septal abnormalities noted. Tympanic membranes are normal and external auditory canals are clear. Oropharynx with no redness, swelling, or masses, exudates, or evidence of obstruction, uvula midline. Mucous membranes moist. Neck: Trachea midline, no thyromegaly or masses palpated, and no cervical lymphadenopathy. Supple, full range of motion without nuchal rigidity, or vertebral point tenderness. No Meningismus. Chest/axilla: Normal chest wall appearance and motion. Nontender with no deformity. No lesions are appreciated. Cardiovascular: Regular rate and rhythm with a normal S1 and S2. No gallops, murmurs, or rubs. Normal PMI, no JVD. No pulse deficits. Abdomen/GI: Soft, non-tender, with normal bowel sounds. No distension or tympany. No guarding or rebound. No evidence of tenderness throughout. Skin: Warm, dry with normal turgor. Normal color with no rashes, no lesions, and no evidence of cellulitis. MS/ Extremity: Pulses equal, no cyanosis. Neurovascular intact. Full, normal range of motion. Neuro: Awake and alert, GCS 15, oriented to person, place, time, and situation. Cranial nerves II-XII grossly intact. Motor strength 5/5 in all extremities. Sensory grossly intact. Cerebellar exam normal. Normal gait. Psych: Awake, alert, with orientation to person, place and time. Behavior, mood, and affect are within normal limits. 18:53 Respiratory: Faint wheezes heard on all lung prakash, no respiratory distress. Vital Signs: 18:17 BP 140 / 80; Pulse 86; Resp 30; Temp 98.8; Pulse Ox 100% ; bp 18:24 BP 157 / 69; Pulse 87; Resp 16; Pulse Ox 95% ; bp 19:51 BP 112 / 78; Pulse 66; Resp 17; Temp 98.6; Pulse Ox 97% on R/A; Pain 0/10; ke1 20:28 BP 141 / 60; Pulse 84; Resp 20; Pulse Ox 94% on 2 lpm NC; Pain 0/10; ke1 21:35 BP 141 / 88; Pulse 82; Resp 17; Pulse Ox 95% on 3 lpm NC; Pain 0/10; ke1 MDM: 18:26 Patient medically screened. rt 20:34 Transition of care: Care assumed from Kendall Joseph MD. ED course: Labs and imaging sd2 reviewed. Flu A positive with elevation of BNP. No abnormalities noted on CXR. Pt desaturates to 87% on room air after nebs requiring NC. Will admit for further management. . 05/04 18:36 Order name: CMP; Complete Time: 20:23 rt 05/04 18:36 Order name: CBC with Diff; Complete Time: 19:33 rt 05/04 18:36 Order name: Chest Single View XRAY; Complete Time: 19:33 rt 05/04 18:36 Order name: Troponin High Sensitivity; Complete Time: 20:23 rt 05/04 18:36 Order name: BNP; Complete Time: 20:23 rt 05/04 18:36 Order name: COVID-19/FLU A+B; Complete Time: 20:23 rt 05/04 18:36 Order name: EKG; Complete Time: 18:36 rt 05/04 18:36 Order name: EKG - Nurse/Tech; Complete Time: 19:34 rt Administered Medications: 19:12 Drug: DuoNeb (albuterol 2.5 mg, ipratropium 0.5 mg) (3:1) (2.5 mg - 0.5 mg) 3 ml Route: ke1 Nebulizer; 19:12 Drug: SOLU-Medrol (methylPrednisoLONE) 125 mg Route: IVP; Site: right wrist; ke1 20:00 Follow up: Response: Marked relief of symptoms ke1 19:17 Drug: Tylenol 1000 mg Route: PO; ke1 20:00 Follow up: Response: Marked relief of symptoms ke1 20:28 Drug: Potassium Chloride 40 mEq Route: PO; ke1 22:37 Follow up: Response: No adverse reaction ke1 22:23 Drug: Tamiflu (oseltamivir) 75 mg Route: PO; ke1 Disposition Summary: 05/04/22 20:36 Hospitalization Ordered Hospitalization Status: Inpatient Admission sd2 Provider: Bert Ohara sd2 Location: Telemetry/MedSur (Inpatient) sd2 Condition: Stable sd2 Problem: new sd2 Symptoms: have improved sd2 Bed/Room Type: [facility] Room Assignment: 204(05/04/22 22:19) eb1 Diagnosis - Acute respiratory failure with hypoxia sd2 - Influenza due to identified novel influenza A virus sd2 Forms: - Medication Reconciliation Form sd2 - SBAR form sd2 Signatures: Dispatcher [employer] EDMS Goyo [place], HEAD CAGER-C HEAD CAGER-Cla1 Jovanny Pérez RN RN Kady Sales RN RN eb1 Willie Rios RN RN ke1 Junie Holley MD MD sd2 Kendall Joseph MD MD rt Corrections: (The following items were deleted from the chart) : 20:36 sd2 eb1
--- NOTE | 2022-05-04 20:37 | ER ---
Nurse's Notes [facility] Name: Blanca Estrada Age: 62 yrs Sex: Female : 1960 Arrival Date: 05/04/2022 Time: 18:17 Bed 14 Private MD: Diagnosis: Acute respiratory failure with hypoxia;Influenza due to identified novel influenza A virus Presentation: 05/04 18:17 Chief complaint: EMS states: COUGH, CHILLS, BODY ACHES SINCE Y/D. Coronavirus screen: bp cough unrelated to allergies, fever, muscle pain, shaking with chills, Client presents with at least one sign or symptom that may indicate coronavirus-19. Ebola Screen: No symptoms or risks identified at this time. Initial Sepsis Screen: Does the patient meet any 2 criteria? RR > 20 per min. No. Patient's initial sepsis screen is negative. Does the patient have a suspected source of infection? Yes: Productive cough/pneumonia. Risk Assessment: Do you want to hurt yourself or someone else? Patient reports no desire to harm self or others. Onset of symptoms is unknown. Care prior to arrival: Glucose check: 240 Med neb given. Oxygen administered. via nasal cannula. 18:17 Method Of Arrival: EMS: [facility] bp 18:17 Acuity: WILMAR 3 bp Triage Assessment: 18:19 General: Appears distressed, ill, Behavior is calm, cooperative, appropriate for age. bp Pain: Complains of pain in GENERAL [place]. EENT: No deficits noted. Neuro: Level of Consciousness is awake, alert, obeys commands, Oriented to Appropriate for age. Cardiovascular: No deficits noted. Respiratory: Reports shortness of breath cough that is Breath sounds with wheezes. GI: No signs and/or symptoms were reported involving the gastrointestinal system. : No signs and/or symptoms were reported regarding the genitourinary system. Derm: No deficits noted. Musculoskeletal: No deficits noted. Historical: - Allergies: 18:19 No Known Allergies; bp - Home Meds: 18:19 lisinopril 40 mg Oral tab 1 tab once daily [Active]; pantoprazole 40 mg Oral TbEC 1 tab bp once daily [Active]; hydralazine 100 mg Oral tab 1 tab 3 times per day [Active]; carvedilol 25 mg Oral tab 1 tab 2 times per day [Active]; levemir 3ML nightly [Active]; atorvastatin 80 mg Oral tab 1 tab once daily [Active]; - PMHx: 18:19 CAD; Clots in the past; CVA; Diabetes - IDDM; Hyperlipidemia; Hypertension; Myocardial bp infarction; - PSHx: 18:19 Brain; pacemaker; Stented artery; bp - Immunization history:: Adult Immunizations up to date. - Social history:: Smoking status: Patient denies any tobacco usage or history of. Screenin:24 [facility] ED Fall Risk Assessment (Adult) History of falling in the last 3 months, bp including since admission No falls in past 3 months (0 pts). Abuse screen: Denies threats or abuse. Denies injuries from another. Nutritional screening: No deficits noted. Tuberculosis screening: No symptoms or risk factors identified. Assessment: 18:24 General: SEE TRIAGE NOTE. bp Vital Signs: 18:17 BP 140 / 80; Pulse 86; Resp 30; Temp 98.8; Pulse Ox 100% ; bp 18:24 BP 157 / 69; Pulse 87; Resp 16; Pulse Ox 95% ; bp 19:51 BP 112 / 78; Pulse 66; Resp 17; Temp 98.6; Pulse Ox 97% on R/A; Pain 0/10; ke1 20:28 BP 141 / 60; Pulse 84; Resp 20; Pulse Ox 94% on 2 lpm NC; Pain 0/10; ke1 21:35 BP 141 / 88; Pulse 82; Resp 17; Pulse Ox 95% on 3 lpm NC; Pain 0/10; ke1 ED Course: 18:17 Patient arrived in ED. bp 18:19 Triage completed. bp 18:19 Arm band placed on. bp 18:24 Patient has correct armband on for positive identification. Bed in low position. Call bp light in reach. Side rails up X2. 18:25 Kendall Joseph MD is Attending Physician. rt 18:38 Jovanny Pérez, EMMIE is Primary Nurse. bp 18:58 Chest Single View XRAY In Process Unspecified. EDMS 19:17 COVID-19/FLU A+B Sent. ke1 19:17 BNP Sent. ke1 19:17 Troponin High Sensitivity Sent. ke1 19:17 CBC with Diff Sent. ke1 19:17 CMP Sent. ke1 19:21 Attending Physician role handed off by Kendall Joseph MD sd2 19:21 Junie Holley MD is Attending Physician. sd2 20:36 Bert Ohara MD is Hospitalizing Provider. sd2 21:33 Inserted saline lock: 20 gauge in right ,using aseptic technique. back lower arm. ke1 22:50 No provider procedures requiring assistance completed. Patient admitted, IV remains in ke1 place. Administered Medications: 19:12 Drug: DuoNeb (albuterol 2.5 mg, ipratropium 0.5 mg) (3:1) (2.5 mg - 0.5 mg) 3 ml Route: ke1 Nebulizer; 19:12 Drug: SOLU-Medrol (methylPrednisoLONE) 125 mg Route: IVP; Site: right wrist; ke1 20:00 Follow up: Response: Marked relief of symptoms ke1 19:17 Drug: Tylenol 1000 mg Route: PO; ke1 20:00 Follow up: Response: Marked relief of symptoms ke1 20:28 Drug: Potassium Chloride 40 mEq Route: PO; ke1 22:37 Follow up: Response: No adverse reaction ke1 22:23 Drug: Tamiflu (oseltamivir) 75 mg Route: PO; ke1 Medication: 18:24 VIS not applicable for this client. bp Outcome: 20:36 Decision to Hospitalize by Provider. sd2 22:50 Admitted to Med/surg accompanied by tech. ke1 22:50 Condition: good 22:50 Instructed on the need for admit. 22:50 Patient left the ED. ke1 Signatures: Dispatcher [employer] EDMS Jovanny Pérez RN RN bp Ebrottie, Kouassi, RN RN ke1 Junie Holley MD MD sd2 Kendall Joseph MD MD rt Corrections: (The following items were deleted from the chart) 20:30 20:28 BP 142 / 85; Pulse 66bpm; Resp 17bpm; Pulse Ox 99% 4 lpm Nasal Cannula; ke1 ke1
[2022-05-04] MEDS ORDERED: OSELTAMIVIR 75 MG CAP PO ONE (22:22)
[2022-05-04] MEDS ORDERED: ONDANSETRON 4 MG/2 ML VIAL IV PRN (22:32)
[2022-05-04] MEDS ORDERED: IPRATROPIUM BROM 0.5MG/2.5ML NEB PRN (22:32)
[2022-05-04] MEDS ORDERED: ALBUTEROL 2.5 MG/3 ML NEB SOL NEB PRN (22:32)
[2022-05-04] MEDS ORDERED: ACETAMINOPHEN 500 MG TAB PO PRN (22:32)
--- NOTE | 2022-05-04 22:44 | P.HP ---
Certification for Inpatient Patient admitted to: Inpatient With expected LOS: >2 Midnights Patient will require the following post-hospital care: None Practitioner: I am a practitioner with admitting privileges, knowledge of patient current condition, hospital course, and medical plan of care. Services: Services provided to patient in accordance with Admission requirements found in Title 42 Section 412.3 of the Code of Federal Regulations Patient History Date of Service: 05/04/22 Reason for admission: Hypoxia, influenza A History of Present Illness: 62-year-old female with history of insulin-dependent diabetes, CAD, hypertension, hyperlipidemia presents the emergency department for dyspnea, cough. She reports her symptoms began yesterday. She is found to be mildly hypoxic on room air with saturations in the high 80s she is currently tolerating nasal cannula well. She tested positive for influenza A chest x-ray is unremarkable labs were significant for sodium 132 potassium 3.0 glucose 178. Patient does admit to smoking approximately 1 pack/day was wheezing earlier in her ED stay, responded well to nebulizer treatments. Suspect possible underlying COPD as well. Allergies No Known Allergies Allergy (Unverified 04/22/17 23:42) Home Medications: Aspirin Chewable [Aspirin Chewable*] 81 mg PO DAILY 02/05/22 Atorvastatin Calcium [Lipitor] 80 mg PO DAILY 02/05/22 Carvedilol [Coreg] 25 mg PO BID 02/05/22 Hydralazine HCl 100 mg PO TID 02/05/22 Lisinopril [Zestril] 40 mg PO DAILY 02/05/22 Pantoprazole [Protonix Tab*] 40 mg PO DAILY 02/05/22 - Past Medical/Surgical History Diabetic: No -: DVT -: CAD -: Tobacco abuse -: back surgery Psychosocial/ Personal History: Patient lives at home with grandchildren. - Family History Mother -: Heart disease, Diabetes, Cancer - Social History Smoking Status: Current every day smoker Alcohol use: No CD- Drugs: No Caffeine use: No Place of Residence: Home Review of Systems 10-point ROS is otherwise unremarkable Respiratory: Cough, Dry, Shortness of Breath, SOB with Excertion Physical Examination - Physical Exam General: Alert, In no apparent distress, Oriented x3 HEENT: Atraumatic, PERRLA, Mucous membr. moist/pink, EOMI, Sclerae nonicteric Neck: Supple, 2+ carotid pulse no bruit, No LAD, Without JVD or thyroid abnormality Respiratory: Normal air movement, Expiratory wheezes Cardiovascular: Regular rate/rhythm, Normal S1 S2 Capillary refill: <2 Seconds Gastrointestinal: Normal bowel sounds, No tenderness Musculoskeletal: No tenderness Integumentary: No rashes Neurological: Normal speech, Normal strength at 5/5 x4 extr, Normal tone, Normal affect - Studies Laboratory Data (last 24 hrs) 05/04/22 19:05: WBC 6.30, Hgb 11.6 L, Hct 34.8 L, Plt Count 240 05/04/22 19:05: Sodium 132 L, Potassium 3.0 L, BUN 6 L, Creatinine 0.81, Glucose 178 H, Total Bilirubin 0.5, AST 23, ALT 20, Alkaline Phosphatase 102 Assessment and Plan - Plan Assessment: Dyspnea, hypoxia secondary to viral infectioninfluenza A Suspect underlying COPD with exacerbation Diabetes mellitus type 2insulin-dependent with hyperglycemia History of CAD Hypertension Hyperlipidemia ? History of blood clot/DVT Plan: Dyspnea, hypoxia secondary to viral infectioninfluenza A: Continue supplemental oxygen as needed currently tolerating 2 L per nasal cannula. Tamiflu ordered. Continue with p.o. steroids and as needed nebulizer treatments as I suspect underlying COPD given she is a daily smoker had significant improvement with nebulizer treatments. Suspect underlying COPD with exacerbation: Continue as above, pulmonology consult in place. Diabetes mellitus type 2insulin-dependent with hyperglycemia: ACHS Accu-Chek, mild sliding scale insulin. History of CAD: Continue home meds Hypertension: Continue home meds Hyperlipidemia: Continue home meds ? History of blood clot/DVT: Patient cannot be clear about possible history of blood clots, she reports she was on blood thinners after some of her cardiac events in the past but had an episode of bleeding in her brain and was taken off of blood thinners secondary to this. Will obtain D-dimer given hypoxia, history of blood clots/anticoagulation requirement. DVT PPX: Lovenox Code status: Full Discharge Plan: Home Plan to discharge in: 48 Hours - Advance Directives Does patient have a Living Will: No Does patient have a Durable POA for Healthcare: No - Code Status/Comfort Care Code Status Assessed: Yes (Full code) Critical Care: No Time Spent Managing Pts Care (In Minutes): 55
[2022-05-04 23:20] VITALS: BMI 25.3
[2022-05-04] MEDS: INSULIN -REGULAR HUMAN 50 UNIT/0.5 ML ML SQ SCH (23:33)
[2022-05-05 04:07] LABS: Absolute Lymphocytes (CBC) 0.4 K/uL (0.7-4.9); Hematocrit 37.3 % (36.0-45.0); Lymphocytes % 6.4 % (15.3-44.8); MCV 83.2 fL (80-100); MPV 7.7 fL (7.6-11.3); RBC Red Blood Cell Count 4.49 M/uL (3.86-4.86)
[2022-05-05 04:23] LABS: Potassium 3.4 mmol/L (3.5-5.1)
[2022-05-05 05:27] LABS: Blood Morphology Comment NOT SEEN (NOT SEEN); Platelet Estimate ADEQ
[2022-05-05] MEDS ORDERED: INSULIN -REGULAR HUMAN 50 UNIT/0.5 ML ML SQ SCH (07:30)
[2022-05-05] MEDS: predniSONE 20 MG TAB PO SCH ×2 (08:34→17:31)
[2022-05-05] MEDS: ENOXAPARIN 40 MG/0.4 ML SQ SCH (08:35)
[2022-05-05] MEDS: INSULIN -REGULAR HUMAN 50 UNIT/0.5 ML ML SQ SCH ×4 (08:35→20:29)
[2022-05-05] MEDS: OSELTAMIVIR 75 MG CAP PO SCH ×2 (08:35→20:29)
[2022-05-05] MEDS ORDERED: POTASSIUM CL SA 10 MEQ TAB PO ONE (09:00)
--- NOTE | 2022-05-05 12:04 | RAD REPORT ---
EXAM DESCRIPTION: CT HEAD WITHOUT CONTRAST CLINICAL HISTORY: SYNCOPE COMPARISON: 02/27/2020 TECHNIQUE: Axial unenhanced CT imaging of the brain. Reformatted coronal and sagittal images obtaine d. This examination was performed according to our departmental dose optimization program, which include s automated exposure control, adjustment of the mA and/or kV according to patient size and/or use of iterative reconstruction technique. FINDINGS: There is redemonstration of an extra-axial heterogeneous thyroid hyperdense fluid collecti on within the subdural space overlying the right frontal, temporal, and parietal lobe. This has sligh tly increased in size although density has decreased. There is now thin hyperdense fluid along the ri ght tentorium. There is a 9 mm leftward midline shift which has increased. There is no intraparenchym al hemorrhage. No evidence of edema or acute major territorial infarction. A trace amount of right pa rietal parafalcine blood is now present. Normal cerebellum and vermis. Fourth ventricle is midline. Intraorbital contents appear normal. Sella contents appear normal. Clear paranasal sinuses. Mastoid air cells are clear bilaterally. Skull base and calvarium are intact. Unremarkable scalp soft tissues. IMPRESSION: 1. Right frontal, temporal, parietal, and tentorial subdural hemorrhage with minimal new right parafalcine subdural blood. This has increased in size. The density has decreased indicative o f subacute hemorrhage. The leftward midline shift has slightly increased in 9 mm. Electronically signed by: Jennifer Poole DO 03/13/2020 1:05 AM CDT Due to temporary technical issues with the PACS/Fluency reporting system, reports are being signed by the in house radiologists without review as a courtesy to insure prompt reporting. The interpreting radiologist is fully responsible for the content of the report.
[2022-05-05] MEDS: DULERA 200/5 (MOMETASONE/FORMOTEROL) INHALER IH SCH ×2 (13:45→20:28)
--- NOTE | 2022-05-05 13:46 | P.CNS ---
Date of Consult: 05/05/22 Reason for Consult: Shortness of breath Chief Complaint: Hypoxia, influenza A History of Present Illness: Patient is 62 years of age mated to the hospital complaining of shortness of breath cough patient is a heavy smoker up to 2 packs a day multiple medical p roblems she was admitted with hypoxemia is currently doing much better prior history of COPD tested positive for influenza Doing better Allergies No Known Allergies Allergy (Unverified 04/22/17 23:42) Home Medications: Aspirin Chewable [Aspirin Chewable*] 81 mg PO DAILY 02/05/22 Atorvastatin Calcium [Lipitor] 80 mg PO DAILY 02/05/22 Carvedilol [Coreg] 25 mg PO BID 02/05/22 Hydralazine HCl 100 mg PO TID 02/05/22 Lisinopril [Zestril] 40 mg PO DAILY 02/05/22 Pantoprazole [Protonix Tab*] 40 mg PO DAILY 02/05/22 Escitalopram [Lexapro] 20 mg PO DAILY 05/05/22 Mirtazapine 7.5 mg PO DAILY 05/05/22 - Past Medical/Surgical History Diabetic: No -: DVT -: CAD -: Tobacco abuse -: NV -: DM -: stent x1 -: CVA during labor -: back surgery -: pacemaker 2018 Psychosocial/ Personal History: Patient lives at home with grandchildren. - Family History Mother Medical History: Heart disease, Diabetes, Cancer - Social History Smoking Status: Current every day smoker Alcohol use: No CD- Drugs: No Caffeine use: No Place of Residence: Home Review of Systems 10-point ROS is otherwise unremarkable Physical Examination Temp Pulse Resp BP Pulse Ox 98.0 F 74 16 131/85 90 L 05/05/22 12:00 05/05/22 12:00 05/05/22 12:00 05/05/22 12:00 05/05/22 12:00 General: Alert, In no apparent distress, Oriented x3 Neck: Supple Respiratory: Clear to auscultation bilaterally, Normal air movement Cardiovascular: No edema, Regular rate/rhythm, Normal S1 S2 Gastrointestinal: Normal bowel sounds, Soft and benign Laboratory Data (last 24 hrs) 05/04/22 19:05: WBC 6.30, Hgb 11.6 L, Hct 34.8 L, Plt Count 240 05/04/22 19:05: Sodium 132 L, Potassium 3.0 L, BUN 6 L, Creatinine 0.81, Glucose 178 H, Total Bilirubin 0.5, AST 23, ALT 20, Alkaline Phosphatase 102 - Problems (1) COPD exacerbation Current Visit: Yes Status: Acute Plan: Strongly suspect that patient has underlying obstructive airways disease is a heavy smoker up to 2 packs a day patient tested positive for influenza A chest x-ray shows COPD changes no evidence of any pneumonia vital signs reviewed saturation room air pulse ox chemistries labs all reviewed patient will require a bronchodilator home prednisone and for discharge
[2022-05-05] MEDS: ALBUTEROL 2.5 MG/3 ML NEB SOL NEB SCH ×2 (14:15→19:10)
[2022-05-05] MEDS ORDERED: BENZONATATE 100 MG CAP PO PRN (15:31)
--- NOTE | 2022-05-05 17:38 | P.PN ---
Date of Service: 05/05/22 Subjective: no acute events overnight feels better compared to yesterday continues with cough, dyspnea on 2L NC ROS: 10 point ROS as noted above, otherwise negative Physical exam GEN: Alert, oriented, NAD HEENT: Normal conjunctiva, sclera anicteric CV: Regular rate and rhythm, no edema Pulm: Nonlabored respirations on 2L NC, +cough, wheeze bilaterally ABD: Soft, nontender, nondistended Neuro: Normal speech, normal affect Problem List acute hypoxemic respiratory failure secondary to acute COPD exacerbation, flu A Diabetes mellitus type 2insulin-dependent with hyperglycemia History of CAD Hypertension Hyperlipidemia ? History of blood clot/DVT wean O2 as tolerated tamiflu steroids, nebs cough medication pulm consulted patient without formal / prior diagnosis of copd. CT with emphysematous changes, smokes ~2ppd resume home meds - anti-hypertensives, monitor BP resume statin Continue supplemental oxygen as needed currently tolerating 2 L per nasal cannula. Tamiflu ordered. Continue with p.o. steroids and as needed nebulizer treatments as I suspect underlying COPD given she is a daily smoker had significant improvement with nebulizer treatments. DVT PPX: Lovenox Code status: Full Discharge Plan: Home Plan to discharge in: 24-48 Hours Time Spent Managing Pts Care (In Minutes): 35
[2022-05-05] MEDS: carvediloL 25 MG TAB PO SCH (17:51)
[2022-05-05] MEDS ORDERED: HYDRALAZINE HCL 25 MG TABLET PO SCH (21:00)
[2022-05-05] MEDS ORDERED: ATORVASTATIN 80 MG TAB PO SCH (21:00)
[2022-05-06] MEDS: ALBUTEROL 2.5 MG/3 ML NEB SOL NEB SCH ×2 (01:20→08:00)
[2022-05-06 02:40] VITALS: O2SAT 92
[2022-05-06 06:07] LABS: Absolute Lymphocytes (CBC) 1.3 K/uL (0.7-4.9); Hematocrit 37.4 % (36.0-45.0); Lymphocytes % 9.1 % (15.3-44.8); MCV 83.4 fL (80-100); MPV 7.7 fL (7.6-11.3); RBC Red Blood Cell Count 4.48 M/uL (3.86-4.86)
[2022-05-06] MEDS ORDERED: LOPERAMIDE HCL 2 MG CAPSULE PO PRN (06:18)
[2022-05-06 06:20] LABS: Potassium 3.8 mmol/L (3.5-5.1)
[2022-05-06] MEDS: INSULIN -REGULAR HUMAN 50 UNIT/0.5 ML ML SQ SCH (07:30)
[2022-05-06 08:25] VITALS: BP 148/69; TEMP 97.7
[2022-05-06] MEDS ORDERED: ASPIRIN 81 MG CHEWABLE TABLET PO SCH (09:00)
[2022-05-06] MEDS ORDERED: PANTOPRAZOLE 40MG TABLET PO SCH (09:00)
[2022-05-06] MEDS ORDERED: HYDRALAZINE HCL 25 MG TABLET PO SCH (09:00)
[2022-05-06] MEDS ORDERED: POTASSIUM CL SA 10 MEQ TAB PO ONE (09:00)
[2022-05-06] MEDS ORDERED: ESCITALOPRAM 20 MG TAB PO SCH (09:00)
[2022-05-06] MEDS ORDERED: MIRTAZAPINE 15 MG TAB PO SCH (09:00)
--- NOTE | 2022-05-06 09:28 | P.DS ---
Admission Date: 05/04/22 Discharge Date: 05/06/22 Disposition: ROUTINE DISCHARGE Discharge Condition: GOOD Reason for Admission: Hypoxia, influenza A Vital Signs/Physical Exam: Temp Pulse Resp BP Pulse Ox 97.7 F 78 16 148/69 H 93 05/06/22 08:00 05/06/22 08:00 05/06/22 08:00 05/06/22 08:00 05/06/22 08:00 Laboratory Data at Discharge: WBC 14.50 K/uL (4.3-10.9) H 05/06/22 05:52 Hgb 12.4 g/dL (12.0-15.0) 05/06/22 05:52 Hct 37.4 % (36.0-45.0) 05/06/22 05:52 Plt Count 262 K/uL (152-406) 05/06/22 05:52 Sodium 136 mmol/L (136-145) 05/06/22 05:52 Potassium 3.8 mmol/L (3.5-5.1) D 05/06/22 05:52 BUN 13 mg/dL (7-18) 05/06/22 05:52 Creatinine 0.66 mg/dL (0.55-1.02) 05/06/22 05:52 Glucose 168 mg/dL (74-106) H 05/06/22 05:52 Total Bilirubin 0.5 mg/dL (0.2-1.0) 05/04/22 19:05 AST 23 U/L (15-37) 05/04/22 19:05 ALT 20 U/L (13-56) 05/04/22 19:05 Alkaline Phosphatase 102 U/L (45-117) 05/04/22 19:05 Home Medications: Aspirin Chewable [Aspirin Chewable*] 81 mg PO DAILY 02/05/22 Atorvastatin Calcium [Lipitor] 80 mg PO DAILY 02/05/22 Carvedilol [Coreg] 25 mg PO BID 02/05/22 Hydralazine HCl 100 mg PO TID 02/05/22 Lisinopril [Zestril] 40 mg PO DAILY 02/05/22 Pantoprazole [Protonix Tab*] 40 mg PO DAILY 02/05/22 Escitalopram [Lexapro*] 20 mg PO DAILY 05/05/22 Mirtazapine 7.5 mg PO DAILY 05/05/22 Oseltamivir [Tamiflu*] 75 mg PO BID 3 Days #6 cap 05/06/22 predniSONE [Prednisone*] 20 mg PO BIDWM 4 Days #8 tab 05/06/22 New Medications: predniSONE [Prednisone*] 20 mg PO BIDWM 4 Days #8 tab Oseltamivir [Tamiflu*] 75 mg PO BID 3 Days #6 cap Physician Discharge Instructions: Patient presented with shortness of breath, noted to be hypoxic and positive for flu. Pulmonology was consulted. She had improvement with tamiflu, steroids, dulera inhaler, and oxygen supplementation. She was weaned off oxygen supplementation and feeling better. CT chest noted some emphysematous changes, no pneumonia, no pulmonary embolus. Pulmonology, Dr. Soria, started the patient on Dulera, and she is to continue this twice daily. Follow up with Dr. Soria in ~2 weeks. Resume home medications as previously prescribed Followup: NONE,NONE [Primary Care Provider] -
[2022-05-06] MEDS: DULERA 200/5 (MOMETASONE/FORMOTEROL) INHALER IH SCH (09:38)
[2022-05-06] MEDS: ENOXAPARIN 40 MG/0.4 ML SQ SCH (09:39)
[2022-05-06] MEDS: predniSONE 20 MG TAB PO SCH (09:39)
[2022-05-06] MEDS: OSELTAMIVIR 75 MG CAP PO SCH (09:39)
[2022-05-06] MEDS: carvediloL 25 MG TAB PO SCH (09:40)
[2022-05-06 10:21] LABS: Blood Morphology Comment NOT SEEN (NOT SEEN); Platelet Estimate ADEQ; White Blood Cell Scan OK (OK)
--- NOTE | 2022-05-07 17:30 | EKG ---
Test Date: 2022-05-04 Test Time: 19:28:29 Security Threat Analyst: SAL MEASUREMENT RESULTS: Intervals: Rate: 84 MT: 140 QRSD: 90 QT: 368 QTc: 434 [place]: P: 57 MT: 140 QRS: 61 T: 70 INTERPRETIVE STATEMENTS: Normal sinus rhythm Normal ECG Compared to ECG 03/13/2020 00:12:24 Left ventricular hypertrophy no longer present Early repolarization no longer present Electronically Signed On 05-07-22 17:26:02 CARE ASST by Sin Atkinson
== END 2022-05-06 10:20 | disposition home or self-care (01) | DRG 193 ==
LOC: ER 18:15 → ERHOLD 22:08 → 2ND 22:28
PROVIDERS: ADMIT Hospitalist; ATTEND Hospitalist
DX: J10.1 Influenza due to other identified influenza virus with other respiratory manifestations (principal); J96.01 Acute respiratory failure with hypoxia; J44.1 Chronic obstructive pulmonary disease with (acute) exacerbation; I25.10 Atherosclerotic heart disease of native coronary artery without angina pectoris; I10 Essential (primary) hypertension; E11.65 Type 2 diabetes mellitus with hyperglycemia; Z79.85 Long-term (current) use of injectable non-insulin antidiabetic drugs; Z86.73 Personal history of transient ischemic attack (TIA), and cerebral infarction without residual deficits; E78.5 Hyperlipidemia, unspecified; Z95.0 Presence of cardiac pacemaker; Z86.718 Personal history of other venous thrombosis and embolism; Z72.0 Tobacco use; Z95.5 Presence of coronary angioplasty implant and graft
CPT/HCPCS: 0240U; 36415; 71045; 71275; 80048; 80053; 82947; 83036; 83880; 84132; 84484; 85025; 85379; 93005; 94640; 96374; 99285; J1650; J1815; J2930; J3535; J7512; J7613; J7644; Q9967

== ENCOUNTER 2022-10-31 18:53 | Observation (INO) | payer MEDICARE, OTHER ==
--- OUTSIDE RECORDS SUMMARY | 2022-10-31 19:25 | XMS REPORT | Continuity of Care Document ---
:1960 Author Organization [facility] t Address [address] [place] [address] Care Team Providers Name Role Phone No, Pcp [facility] Primary Care Physician Unavailable Og Ybarra Cardiology Attending Clinician Unavailable JESUS ALBERTO SOLIS I. Attending Clinician Unavailable SITA SAMPSON Attending Clinician Unavailable Sandra Andrews Attending Clinician ROSANNA RODRIGUEZ Attending Clinician Unavailable GILES MCDONALD Attending Clinician Unavailable Og Ybarra Cardiology Admitting Clinician Unavailable JESUS ALBERTO SOLIS I. Admitting Clinician Unavailable SITA SAMPSON Admitting Clinician Unavailable SWEETIE BURCIAGA Admitting Clinician Unavailable CAMMY DAVIS Admitting Clinician Unavailable Payers Payer Name Policy Type Policy Number Effective Date Expiration Date S saylaith CDC REVIEW [id number] 2020 00:00:00 [facility] [employer] [id number] 2022 (MEDICARE 00:00:00 REPLACEMENT HMO) Problems Condition Condition Condition Status Onset Resolution Last Treating Co mments Source Name Details Category Date Date Treatment Clinician Date SDH SDH Disease Recurre 2019-[address] [facility] (subdural (subdural nce 0-30 [facility] hematoma) hematoma) 00:00: Medi erwin 00 Center Cerebral Cerebral Disease Recurre 2019-[address] [facility] edema edema nce 0[facility]16 [facility] 00 [place] Midline Midline Disease Active 2019-[address] [facility] shift of shift of 0-16 [facility] brain brain 00:[facility] Medical 00 Center Subdural Subdural Disease Recurre 2019-[address] [facility] hemorrhage hemorrhage nce 0-15 Jodie kes 00:00: Medical 00 Center Hypertensi Hypertensi Disease Recurre 2018-[address] [facility] on on nce 2-11 [facility] 00 [place] Hyperlipid Hyperlipid Disease Recurre 2018-[address] [facility] emia emia nce 2-11 [facility] 00:[facility]: Medical 00 [place] Uncontroll Uncontroll Disease Recurre 2018-[address] [facility] ed ed nce 2-11 [facility] diabetes diabetes 00:00: Medica l mellitus mellitus 00 Center with with hyperglyce hyperglyce [place] Disease Active 2018-[address] [facility] (ventricul (ventricul 2-11 Jodie kes ar ar 00:00: Medical tachycardi tachycardi 00 Ce nter a) a) Heart Heart Disease Active 2018-[address] [facility] block block 2-11 [facility] 00:00: Medical 00 [place] Leukocytos Leukocytos Disease Active 2018-[address] is is 2-11 [facility] 00:[facility]: Medical 00 [place] CAD CAD Disease Recurre 2018-[address] [facility] (coronary (coronary nce 2-10 [facility] artery artery 00:00: Medical disease) disease) 00 Center Allergies, Adverse Reactions, Alerts Allergy Allergy Status Severity Reaction(s) Onset Inactive Treating Comm ents Source Name Type Date Date Clinician morphine DA Active U SYDNEY KEN [facility] 6-15 [place] 00:00: d 00 [facility] [place] [facility] Active Intraven ty to [...] Stop Date Source Natural mother Coronary artery MARGARET raya [facility] disease Medical Center Social History Social Habit Start Date Stop Date Quantity Comments Source History SDNM [facility] Alcohol Std Drinks Medica l Center History SDNM [facility] Alcohol Binge Medical Raman ter History SDNM [facility] Alcohol Comment Medical C enter History of tobacco Cigarette Smoker [facility] Luangelina use [facility] Alcohol intake 2020-03-16 2020-03-[address] [facility] 00:00:00 00:00:00 non-drinker of Medical Ce nter alcohol (finding) History SDOH 2019-04-24 2019-04-[address] [facility] Alcohol Frequency 00:00:00 00:00:00 [facility] Cigarettes smoked 2019-04-23 2019-04-[address] [facility] [facility] Micky current (pack per 00:00:00 00:00:00 Medical Center day) - Reported Tobacco use and 2019-04-23 2019-04-23 User [facility]okeless [facility] exposure 00:[facility]:00:00 tobacco Medical Center Sex Assigned At [birth year] [facility] corinnes 00:00:00 00:00:00 [facility] Smoking Status Start Date Stop Date Source Smokes tobacco daily 2019-04-23 00:00:00 [facility] Medications Ordered Filled Start Stop Current Ordering Indication Dosage Frequency Signature Comments Components Source Medication Medication Date Date Medication? Clinician (SIG) Name Name CARVEDILOL 2021-05 No 25 MG TABS - 00:00: 00 CARVEDILOL 1 No 25 MG TABS -04 00:00: 00 CARVEDILOL 1 No 25 MG TABS 1-04 00:00: 00 Dose 2021-0 No Unknown 02-08 00:00: 00 Dose 2021-0 No Unknown 02-08 00:00: 00 Dose 2021-0 No Unknown 02-08 00:00: 00 Dose 2021-0 No Unknown 02-08 00:00: 00 Dose 2021-0 No Unknown 02-08 00:00: 00 Dose 2021-0 No Unknown 8 00:00: 00 Dose 2021-0 No Unknown 8 00:00: 00 Dose 2021-0 No Unknown 12-21 00:00: 00 Dose 2022-0 No Unknown 8- 00:00: 00 Dose 2022-0 No Unknown 8 00:00: 00 TAKE 1 2022-0 No 100 TABLET 8-03 EVERY 8 00:00: HOURS. 00 TAKE 1 2022-0 No 80 TABLET 8-03 DAILY. 00:00: 00 Dose 2022-0 No Unknown 8- 00:00: 00 TAKE 1 2022-0 No 100 TABLET 8-03 EVERY 8 00:00: HOURS. 00 TAKE 1 2022-0 No 100 TABLET 8-03 EVERY 8 00:00: HOURS. 00 TAKE 1 2022-0 No 80 TABLET 8- DAILY. 00:00: 00 Dose 2022-0 No Unknown 8- 00:00: 00 TAKE 1 2022-0 No 100 TABLET 8-03 EVERY 8 00:00: HOURS. 00 TAKE 1 2022-0 No 100 TABLET 8-03 EVERY 8 00:00: HOURS. 00 TAKE 1 2022-0 No 80 TABLET 8-03 DAILY. 00:00: 00 Dose 2022-0 No Unknown 8- 00:00: 00 TAKE 1 2022-0 No 100 TABLET 8-03 EVERY 8 00:00: HOURS. 00 TAKE 1 2022-0 No 100 TABLET 8-03 EVERY 8 00:00: HOURS. 00 TAKE 1 2022-0 No 80 TABLET 8-03 DAILY. 00:00: 00 Dose 2022-0 No Unknown 8- 00:00: 00 TAKE 1 2022-0 No 100 TABLET 8-03 EVERY 8 00:00: HOURS. 00 TAKE 1 2022-0 No 100 TABLET 8-03 EVERY 8 00:00: HOURS. 00 TAKE 1 2022-0 No 80 TABLET 8-03 DAILY. 00:00: 00 Dose 2022-0 No Unknown 8- 00:00: 00 TAKE 1 2022-0 No 100 TABLET 8- EVERY 8 00:00: HOURS. 00 Dose 2022-0 No Unknown 12-13 00:00: 00 Dose 2022-0 No Unknown 8 00:00: 00 Dose 2022-0 No Unknown 8 00:00: 00 Dose 2022-0 No Unknown 8 00:00: 00 Dose 2022-0 No Unknown 8 00:00: 00 Dose 2022-0 No Unknown 7 00:00: 00 TAKE 1 2022-0 No 80 TABLET 7- DAILY. 00:00: 00 Dose 2022-0 No Unknown 7 00:00: 00 TAKE 1 2022-0 No 80 TABLET 7- DAILY. 00:00: 00 Dose 2022-0 No Unknown 7 00:00: 00 TAKE 1 2022-0 No 80 TABLET 7- DAILY. 00:00: 00 Dose 2022-0 No Unknown 7 00:00: 00 TAKE 1 2022-0 No 80 TABLET 7- DAILY. 00:00: 00 Dose 2022-0 No Unknown 7 00:00: 00 TAKE 1 2022-0 No 80 TABLET 7- DAILY. 00:00: 00 buspirone 5 2-0 No 1mg mg tablet 7 00:00: 00 Dose 2022-0 No Unknown 7 00:00: 00 buspirone 5 2-0 No 1mg mg tablet 7 00:00: 00 Dose 2022-0 No Unknown 7 00:00: 00 buspirone 5 2-0 No 1mg mg tablet 7 00:00: 00 Dose 2-0 No Unknown 7 00:00: 00 buspirone 5 2-0 No 1mg mg tablet 7 00:00: 00 Dose 2022-0 No Unknown 7 00:00: 00 buspirone 5 2-0 No 1mg mg tablet 7 00:00: 00 Dose 2022-0 No Unknown 7 00:00: 00 Dose 2022-0 No Unknown 7 00:00: 00 TAKE 2 2022-0 No 20 TABLETS X 1 7- TODAY. THEN 00:00: 1 TABLET 00 DAILY X 5 DAYS TAKE 1 2022-0 No 80 TABLET 7- DAILY. 00:00: 00 TAKE 1 2022-0 No 100 TABLET 7 EVERY 8 00:00: HOURS. 00 TAKE 1 2022-0 No [id number] TABLET 7- TWICE DAILY 00:00: WITH FOOD. 00 Dose 2022-0 No Unknown 7 00:00: 00 TAKE 2 2022-0 No 20 TABLETS X 1 7-28 TODAY. THEN 00:00: 1 TABLET 00 DAILY X 5 DAYS TAKE 1 2022-0 No 80 TABLET 7-28 DAILY. 00:00: 00 TAKE 1 2022-0 No 100 TABLET 7-28 EVERY 8 00:00: HOURS. 00 TAKE 1 2022-0 No [id number] TABLET 7-28 TWICE DAILY 00:00: WITH FOOD. 00 Dose 2022-0 No Unknown 7-28 00:00: 00 TAKE 2 2022-0 No 20 TABLETS X 1 7-28 TODAY. THEN 00:00: 1 TABLET 00 DAILY X 5 DAYS TAKE 1 2022-0 No 80 TABLET 7-28 DAILY. 00:00: 00 TAKE 1 2022-0 No 100 TABLET 7-28 EVERY 8 00:00: HOURS. 00 TAKE 1 2022-0 No [id number] TABLET 7-28 TWICE DAILY 00:00: WITH FOOD. 00 Dose 2022-0 No Unknown 7-28 00:00: 00 TAKE 2 2022-0 No 20 TABLETS X 1 7-28 TODAY. THEN 00:00: 1 TABLET 00 DAILY X 5 DAYS TAKE 1 2022-0 No 80 TABLET 7-28 DAILY. 00:00: 00 TAKE 1 2022-0 No 100 TABLET 7-28 EVERY 8 00:00: HOURS. 00 TAKE 1 2022-0 No [id number] TABLET 7-28 TWICE DAILY 00:00: WITH FOOD. 00 Dose 2022-0 No Unknown 7-28 00:00: 00 TAKE 2 2022-0 No 20 TABLETS X 1 7-28 TODAY. THEN 00:00: 1 TABLET 00 DAILY X 5 DAYS TAKE 1 2022-0 No 80 TABLET 7-28 DAILY. 00:00: 00 TAKE 1 2022-0 No 100 TABLET 7-28 EVERY 8 00:00: HOURS. 00 TAKE 1 2022-0 No [id number] TABLET 7-28 TWICE DAILY 00:00: WITH FOOD. 00 TAKE 1 2022-0 No [id number] TABLET 7-25 TWICE DAILY 00:00: WITH FOOD. 00 TAKE 2 2022-0 No 20 TABLETS X 1 7-25 TODAY. THEN 00:00: 1 TABLET 00 DAILY X 5 DAYS TAKE 2 2022-0 No 20 TABLETS X 1 7-25 TODAY. THEN 00:00: 1 TABLET 00 DAILY X 5 DAYS TAKE 1 2022-0 No [id number] TABLET 7-25 TWICE DAILY 00:00: WITH FOOD. 00 TAKE 1 2022-0 No [id number] TABLET 7-25 TWICE DAILY 00:00: WITH FOOD. 00 TAKE 2 2022-0 No 20 TABLETS X 1 7-25 TODAY. THEN 00:00: 1 TABLET 00 DAILY X 5 DAYS TAKE 2 2022-0 No 20 TABLETS X 1 7-25 TODAY. THEN 00:00: 1 TABLET 00 DAILY X 5 DAYS TAKE 1 2022-0 No [id number] TABLET 7-25 TWICE DAILY 00:00: WITH FOOD. 00 TAKE 1 2022-0 No [id number] TABLET 7-25 TWICE DAILY 00:00: WITH FOOD. 00 TAKE 2 2022-0 No 20 TABLETS X 1 7-25 TODAY. THEN 00:00: 1 TABLET 00 DAILY X 5 DAYS TAKE 2 2022-0 No 20 TABLETS X 1 7-25 TODAY. THEN 00:00: 1 TABLET 00 DAILY X 5 DAYS TAKE 1 2022-0 No [id number] TABLET 7-25 TWICE DAILY 00:00: WITH FOOD. 00 TAKE 1 2022-0 No [id number] TABLET 7-25 TWICE DAILY 00:00: WITH FOOD. 00 TAKE 2 2022-0 No 20 TABLETS X 1 7-25 TODAY. THEN 00:00: 1 TABLET 00 DAILY X 5 DAYS TAKE 2 2022-0 No 20 TABLETS X 1 7-25 TODAY. THEN 00:00: 1 TABLET 00 DAILY X 5 DAYS TAKE 1 2022-0 No [id number] TABLET 7-25 TWICE DAILY 00:00: WITH FOOD. 00 TAKE 1 2022-0 No [id number] TABLET 7-25 TWICE DAILY 00:00: WITH FOOD. 00 TAKE 2 2022-0 No 20 TABLETS X 1 7-25 TODAY. THEN 00:00: 1 TABLET 00 DAILY X 5 DAYS TAKE 2 2022-0 No 20 TABLETS X 1 7-25 TODAY. THEN 00:00: 1 TABLET 00 DAILY X 5 DAYS TAKE 1 2022-0 No [id number] TABLET 7-25 TWICE DAILY 00:00: WITH FOOD. 00 TAKE 1 2022-0 No [id number] TABLET 7-25 TWICE DAILY 00:00: WITH FOOD. 00 TAKE 2 2022-0 No 20 TABLETS X 1 7-25 TODAY. THEN 00:00: 1 TABLET 00 DAILY X 5 DAYS TAKE 2 2022-0 No 20 TABLETS X 1 7-25 TODAY. THEN 00:00: 1 TABLET 00 DAILY X 5 DAYS TAKE 1 2022-0 No [id number] TABLET 7-25 TWICE DAILY 00:00: WITH FOOD. [...] Dose 2022-0 No Unknown 7-17 00:00: 00 lisinopril 2022-0 No 1mg 40 mg 7-07 tablet 00:00: 00 Dose 2022-0 No Unknown 7-07 00:00: 00 TAKE 1 2022-0 No [id number] TABLET 7-07 TWICE DAILY 00:00: WITH FOOD. 00 lisinopril 2022-0 No 1mg 40 mg 7-07 tablet 00:00: 00 Dose 2022-0 No Unknown 7-07 00:00: 00 TAKE 1 2022-0 No [id number] TABLET 7-07 TWICE DAILY 00:00: WITH FOOD. 00 lisinopril 2022-0 No 1mg 40 mg 7-07 tablet 00:00: 00 Dose 2022-0 No Unknown 7-07 00:00: 00 TAKE 1 2022-0 No [id number] TABLET 7-07 TWICE DAILY 00:00: WITH FOOD. 00 lisinopril 2022-0 No 1mg 40 mg 7-07 tablet 00:00: 00 Dose 2022-0 No Unknown 7-07 00:00: 00 TAKE 1 2022-0 No [id number] TABLET 7-07 TWICE DAILY 00:00: WITH FOOD. 00 lisinopril 2022-0 No 1mg 40 mg 7-07 tablet 00:00: 00 Dose 2022-0 No Unknown 11-18 00:00: 00 TAKE 1 2-0 No [id number] TABLET - TWICE DAILY 00:00: WITH FOOD. 00 lisinopril 2022-0 No 1mg 40 mg 7- tablet 00:00: 00 atorvastati 2-0 No 1mg n 80 mg 7- tablet 00:00: 00 TAKE 1 2-0 No [id number] TABLET - TWICE DAILY 00:00: WITH FOOD. 00 buspirone 5 2-0 No 1mg mg tablet 11-12 00:00: 00 Lexapro 10 2022-0 No 1mg mg tablet 11-12 00:00: 00 TAKE 1 2-0 No [id number] TABLET 11-12 TWICE DAILY 00:00: WITH FOOD. 00 Dose 2021-0 No Unknown 11-12 00:00: 00 TAKE 2 2022-0 No 20 TABLETS X 1 11-12 TODAY. THEN 00:00: 1 TABLET 00 DAILY X 5 DAYS buspirone 5 2-0 No 1mg mg tablet 11-12 00:00: 00 Lexapro 10 2022-0 No 1mg mg tablet 11-12 00:00: 00 TAKE 1 2-0 No [id number] TABLET 11-12 TWICE DAILY 00:00: WITH FOOD. 00 Dose 2-0 No Unknown 11-12 00:00: 00 TAKE 2 2022-0 No 20 TABLETS X 1 11-12 TODAY. THEN 00:00: 1 TABLET 00 DAILY X 5 DAYS buspirone 5 2-0 No 1mg mg tablet 11-12 00:00: 00 Lexapro 10 2022-0 No 1mg mg tablet 11-12 00:00: 00 TAKE 1 2022-0 No [id number] TABLET 11-12 TWICE DAILY 00:00: WITH FOOD. 00 Dose 2-0 No Unknown 11-12 00:00: 00 TAKE 2 2022-0 No 20 TABLETS X 1 11-12 TODAY. THEN 00:00: 1 TABLET 00 DAILY X 5 DAYS buspirone 5 2022-0 No 1mg mg tablet 11-12 00:00: 00 Lexapro 10 2022-0 No 1mg mg tablet 11-12 00:00: 00 TAKE 1 2022-0 No [id number] TABLET 11-12 TWICE DAILY 00:00: WITH FOOD. 00 Dose 2022-0 No Unknown 11-12 00:00: 00 TAKE 2 2022-0 No 20 TABLETS X 1 11-12 TODAY. THEN 00:00: 1 TABLET 00 DAILY X 5 DAYS buspirone 5 2-0 No 1mg mg tablet 11-12 00:00: 00 Lexapro 10 2022-0 No 1mg mg tablet 11-12 00:00: 00 TAKE 1 2022-0 No [id number] TABLET - TWICE DAILY 00:00: WITH FOOD. 00 Dose 2-0 No Unknown 11-12 00:00: 00 TAKE 2 2022-0 No 20 TABLETS X 1 11-12 TODAY. THEN 00:00: 1 TABLET 00 DAILY X 5 DAYS buspirone 5 2-0 No 1mg mg tablet 11-12 00:00: 00 Lexapro 10 2022-0 No 1mg mg tablet 11-12 00:00: 00 TAKE 1 2022-0 No [id number] TABLET 11-12 TWICE DAILY 00:00: WITH FOOD. 00 Dose 2-0 No Unknown 11-12 00:00: 00 TAKE 2 2-0 No 20 TABLETS X 1 11-12 TODAY. [...] buspirone 5 2-0 No 1mg mg tablet 5- 00:00: 00 Lexapro 10 2022-0 No 1mg mg tablet 5- 00:00: 00 buspirone 5 2-0 No 1mg mg tablet 5- 00:00: 00 Lexapro 10 2-0 No 1mg mg tablet 5- 00:00: 00 buspirone 5 2-0 No 1mg mg tablet 5- 00:00: 00 Lexapro 10 2-0 No 1mg mg tablet 5- 00:00: 00 buspirone 5 2-0 No 1mg mg tablet 5- 00:00: 00 Lexapro 10 2-0 No 1mg mg tablet 5- 00:00: 00 buspirone 5 2-0 No 1mg mg tablet 5- 00:00: 00 Lexapro 10 2-0 No 1mg mg tablet 5- 00:00: 00 buspirone 5 2-0 No 1mg mg tablet 5- 00:00: 00 Lexapro 10 2-0 No 1mg mg tablet 5- 00:00: 00 Lexapro 10 2-0 No 1mg mg tablet 5-18 00:00: 00 Lexapro 10 2-0 No 1mg mg tablet 5-18 00:00: 00 Lexapro 10 2-0 No 1mg mg tablet 5-18 00:00: 00 Lexapro 10 2-0 No 1mg mg tablet 5-18 00:00: 00 Lexapro 10 2-0 No 1mg mg tablet 5-18 00:00: 00 Lexapro 10 2022-0 No 1mg mg tablet 5-18 00:00: 00 [...] 2-23 tablet,edvin 00:00: yed release 00 fluoxetine 2021-1 No 1mg 60 mg 2-23 tablet 00:00: 00 Dose 2020- No Unknown 2-23 00:00: 00 pantoprazol 2020-05 No 1mg e 40 mg 2-23 tablet,edvin 00:00: yed release 00 fluoxetine 2020-05 No 1mg 60 mg 2-23 tablet 00:00: 00 Dose 2020- No Unknown 2-23 00:00: 00 pantoprazol 2020-05 No 1mg e 40 mg 2-23 tablet,edvin 00:00: yed release 00 fluoxetine 2020-05 No 1mg 60 mg 2-23 tablet 00:00: 00 Dose 2020- No Unknown 2-23 00:00: 00 pantoprazol 2020-05 No 1mg e 40 mg 2-23 tablet,edvin 00:00: yed release 00 fluoxetine 2020-05 No 1mg 60 mg 2-23 tablet 00:00: 00 Dose 2020- No Unknown 2-23 00:00: 00 pantoprazol 2020-05 No 1mg e 40 mg 2-23 tablet,edvin 00:00: yed release 00 fluoxetine 2020-05 No 1mg 60 mg 2-23 tablet 00:00: 00 atorvastati 2020-05 No 1mg n 80 mg 2-23 tablet 00:00: 00 pantoprazol 2020-05 No 1mg e 40 mg 2-23 tablet,edvin 00:00: yed release 00 fluoxetine 2020-05 No 1mg 60 mg 2-23 tablet 00:00: 00 Dose 2020-1 No Unknown 2-23 00:00: 00 lisinopril 2020-1 No 1mg 40 mg 2-10 tablet 00:00: 00 lisinopril 2020-1 No 1mg 40 mg 2-10 tablet 00:00: 00 lisinopril 2020-1 No 1mg 40 mg 2-10 tablet 00:00: 00 lisinopril 2020-1 No 1mg 40 mg 2-10 tablet 00:00: 00 lisinopril 2020-1 No 1mg 40 mg 2-10 tablet 00:00: 00 lisinopril 2020-1 No 1mg 40 mg 2-10 tablet 00:00: 00 hydralazine 2020- No 1mg 100 mg 1-22 tablet 00:00: [...] 40 mg 5-25 tablet,edvin 00:00: yed release lisinopril 2021-0 No 1mg 40 mg 5-25 [...] 80 mg 3-11 tablet 00:00: 00 atorvastati 1-0 No 1mg n 80 mg 3-11 tablet 00:00: 00 pantoprazol 1-0 No 1mg e 40 mg 1-28 tablet,edvin 00:00: yed release 00 pantoprazol 1-0 No 1mg e 40 mg 1-28 tablet,edvin 00:00: yed release 00 pantoprazol 1-0 No 1mg e 40 mg 1-28 tablet,edvin 00:00: yed release 00 pantoprazol 1-0 No 1mg e 40 mg 1-28 tablet,edvin 00:00: yed release 00 pantoprazol 1-0 No 1mg e 40 mg 1-28 tablet,edvin 00:00: yed release 00 pantoprazol 1-0 No 1mg e 40 mg 1-28 tablet,edvin 00:00: yed release 00 atorvastati 1-0 No 1mg n 80 mg 1-21 tablet 00:00: 00 atorvastati 1-0 No 1mg n 80 mg 1-21 tablet 00:00: 00 atorvastati 1-0 No 1mg n 80 mg 1-21 tablet 00:00: 00 atorvastati 1-0 No 1mg n 80 mg 1-21 tablet 00:00: 00 atorvastati 1-0 No 1mg n 80 mg 1-21 tablet 00:00: 00 atorvastati 1-0 No 1mg n 80 mg 1-21 tablet 00:00: 00 fluoxetine 2020-1 No 1mg 60 mg 2-10 tablet 00:00: 00 fluoxetine 2020-1 No 1mg 60 mg 2-10 tablet 00:00: 00 fluoxetine 2020-1 No 1mg 60 mg 2-10 tablet 00:00: 00 fluoxetine 2020-1 No 1mg 60 mg 2-10 tablet 00:00: 00 fluoxetine 2020-1 No 1mg 60 mg 2-10 tablet 00:00: 00 fluoxetine 2020-1 No 1mg 60 mg 2-10 tablet 00:00: 00 insulin 2019-1 Yes QD Inject [facility] U-100 14:35: [facility] (LEVEMIR) 29 night Center 100 unit/mL bedtime . injection insulin 2019-[address] [facility] aspart 1-04 subcutaneo [...] 29 Center tablet gabapentin 2019-05- No 300mg [id number] Take [address] [facility] (NEURONTIN) 05-18 [id number] capsule [facility] 300 MG 00:00: 23:59 3D (300 mg Medical capsule 00 :00 total) by Center mouth 3 (three) times daily. hydrALAZINE 2019-05- No 100mg Take [address] (APRESOLINE -03-18 tablet [facility] ) 100 MG 00:00: 23:59 (100 mg Medic al tablet 00 :00 total) by Center mouth every 8 (eight) hours. gabapentin 2019-05 No 300mg [id number] Take [address] [facility] (NEURONTIN) 05-18 [id number] capsule [facility] 300 MG 00:00: 23:59 3D (300 mg Medical capsule 00 :00 total) by Center mouth 3 (three) times daily. hydrALAZINE 2019-05 No 100mg Take [address] (APRESOLINE 05-18 tablet [facility] ) 100 MG 00:00: 23:59 (100 mg Medic al tablet 00 :00 total) by Center mouth every 8 (eight) hours. gabapentin 2019-05 No 300mg [id number] Take [address] [facility] (NEURONTIN) 05-18 [id number] capsule [facility] 300 MG 00:00: 23:59 3D (300 mg Medical capsule 00 :00 total) by Center mouth 3 (three) times daily. hydrALAZINE 2019-05 No 100mg Take [address] (APRESOLINE -03-18 tablet [facility] ) 100 MG 00:00: 23:59 (100 mg Medic al tablet 00 :00 total) by Center mouth every 8 (eight) hours. gabapentin 2019-05 No 300mg [id number] Take [address] [facility] (NEURONTIN) 05-18 [id number] capsule [facility] 300 MG 00:00: 23:59 3D (300 mg Medical capsule 00 :00 total) by Center mouth 3 (three) times daily. hydrALAZINE 2019-05 No 100mg Take [address] [facility] (APRESOLINE -03-18 tablet [facility] ) 100 MG 00:00: 23:59 (100 mg Medic al tablet 00 :00 total) by Center mouth every 8 (eight) hours. gabapentin 2019-05 300mg [id number] Take [address] [facility] (NEURONTIN) 05-18 [id number] capsule [facility] 300 MG 00:00: 23:59 3D (300 mg Medical capsule 00 :00 total) by Center mouth 3 (three) times daily. hydrALAZINE 2019-05 100mg Take [address] (APRESOLINE 05-18 tablet [facility] ) 100 MG 00:00: 23:59 (100 mg Medic al tablet 00 :00 total) by Center mouth every 8 (eight) hours. lisinopriL 2019-05 40mg QD Take 1 [facility] [...] :00 by mouth Center daily. carvediloL 2019-05 25mg Q.5D Take [address] [facility] (COREG) 25 0-18 10-18 tablet (25 Jodie kes MG tablet 00:00: 23:59 mg total) Me dical 00 :00 by mouth 2 Center (two) times daily. carvediloL 2019-05 No 25mg Q.5D Take [address] [facility] (COREG) 25 0-18 10-18 tablet (25 Jodie kes MG tablet 00:00: 23:59 mg total) Me dical 00 :00 by mouth 2 Center (two) times daily. carvediloL 2019-05 No 25mg Q.5D Take [...] 80 mg 1-15 tablet 00:00: 00 insulin 2018- Yes 10U QD Inject 10 [...] strips [facility] diagnostic 2-13 ip} by J[facility]ie[facility] (GLUCOSE 00:00: Miscellane Med ical BLOOD) Strp [address] 4 (four) times daily. lancets 2019 Yes Use for [facility] (LANCETS, 2-13 [...] strips [facility] diagnostic 2-13 ip} by Micky (GLUCOSE 00:00: Miscellane Med ical BLOOD) Strp [...] strips [facility] diagnostic 2-13 ip} by [facility] (GLUCOSE 00:00: Miscellane Med ical BLOOD) Strp [...] Raman ter 4 (four) times daily. lancets 2019 Yes Use for [facility] (LANCETS, 2-13 glucose [facility] SUPER THIN) 00:00: check 4 Med ical Misc 00 times Center daily. insulin 2019 Yes 10U QD Inject 10 [facility] [...] 350; 8 units if sugar > 400. insulin 2018-05 Yes 10U QD Inject 10 [...] strips [facility] diagnostic 2-13 ip} by [facility]icky (GLUCOSE 00:00: Miscellane Med ical BLOOD) Strp [address] 4 (four) times daily. lancets 2018-05 Yes Use for [facility] (LANCETS, 2-13 glucose [facility] SUPER THIN) 00:00: check 4 Med ical Misc 00 times Center daily. glucometer 2018-05 Yes Use pre [facility] (FREESTYLE) 2-13 meals and [facility] es Misc 00:00: pre Medical 00 bedtime Center with strips and lancets. blood sugar 2018-05 Yes 120{str Q.25D [address] [facility] diagnostic 2-13 ip} by Jodiekes (GLUCOSE 00:00: Miscellane Med ical BLOOD) Strp [...] Name Denzel HICKEYID-19 2020-11-05 Completed Vaccine 00:00:00 Moderna COVID-19 2020-11-05 Completed Vaccine 00:00:00 Moderna COVID-19 2020-11-05 Completed Vaccine 00:00:00 Moderna COVID-19 2020-11-05 Completed Vaccine 00:00:00 Moderna COVID-19 2020-11-05 Completed Vaccine 00:00:00 Moderna COVID-19 2020-11-05 Completed Vaccine 00:00:00 Pneumococcal 2020-02-[address] [facility] Conjugate (Prevnar) 00:00:[address] [facility] 13-Valent Influenza Four-QIV 2020-02-[address] [facility] PF 3YR+ ([id number]) 00:00:00 [facility] Pneumococcal 2020-02-[address] [facility] Conjugate (Prevnar) 00:00:[address] [facility] 13-Valent Influenza Four-QIV 2020-02-[address] [facility] PF 3YR+ ([id number]) 00:00:00 [facility] Pneumococcal 2020-02-[address] [facility] Conjugate (Prevnar) 00:00:[address] [facility] 13-Valent Influenza Four-QIV 2020-02-[address] [facility] PF 3YR+ ([id number]) 00:00:00 [facility] Pneumococcal 2020-02-[address] [facility] Conjugate (Prevnar) 00:00:[address] [facility] 13-Valent Influenza Four-QIV 2020-02-[address] [facility] PF 3YR+ ([id number]) 00:00:00 [facility] Pneumococcal 2020-02-[address] [facility] Conjugate (Prevnar) 00:00:[address] [facility] 13-Valent Influenza Four-QIV 2020-02-[address] [facility] PF 3YR+ ([id number]) 00:00:00 [facility] Pneumococcal 2020-02-[address] [facility] Conjugate (Prevnar) 00:00:[address] [facility] 13-Valent Influenza Four-QIV 2020-02-[address] [facility] PF 3YR+ ([id number]) 00:00:00 [facility] Pneumococcal 2020-02-[address] [facility] Conjugate (Prevnar) 00:00:[address] [facility] 13-Valent Influenza Four-QIV 2020-02-[address] [facility] PF 3YR+ ([id number]) 00:00:00 [facility] Pneumococcal 2020-02-[address] [facility] Conjugate (Prevnar) 00:00:[address] [facility] 13-Valent Influenza Four-QIV 2020-02-[address] [facility] PF 3YR+ ([id number]) 00:00:00 [facility] Pneumococcal 2020-02-[address] [facility] Conjugate (Prevnar) 00:00:[address] [facility] 13-Valent Influenza Four-QIV 2020-02-[address] [facility] PF 3YR+ ([id number]) 00:00:00 [facility] Pneumococcal 2020-02-[address] [facility] Conjugate (Prevnar) 00:00:[address] [facility] Influenza Four-QIV 2020-02-[address] [facility] PF 3YR+ ([id number]) 00:00:00 [facility] Pneumococcal 2020-02-[address] [facility] Conjugate (Prevnar) 00:00:[address] [facility] Influenza Four-QIV 2020-02-[address] [facility] PF 3YR+ ([id number]) 00:00:00 [facility] Pneumococcal 2020-02-[address] [facility] Conjugate (Prevnar) 00:00:[address] [facility] Influenza Four-QIV 2020-02-[address] [facility] PF 3YR+ ([id number]) 00:00:00 [facility] Pneumococcal 2020-02-[address] [facility] Conjugate (Prevnar) 00:00:[address] [facility] Influenza Four-QIV 2020-02-[address] [facility] PF 3YR+ ([id number]) 00:00:00 [facility] Pneumococcal 2020-02-[address] [facility] Conjugate (Prevnar) 00:00:[address] [facility] Influenza Four-QIV 2020-02-[address] [facility] PF 3YR+ ([id number]) 00:00:00 [facility] Pneumococcal 2020-02-[address] [facility] Conjugate (Prevnar) 00:00:[address] [facility] Influenza Four-QIV 2020-02-[address] [facility] PF 3YR+ ([id number]) 00:00:00 [facility] Vital Signs Vital Name Observation Time [...] Planned Date Details Comments Source Future Scheduled 2023-01-[address] [facility] Test 00:00:00 (Season Ended) [facility] Influ[facility] (Season Ended)] Future Scheduled 2023-01-[address] [facility] Test 00:00:00 (Season Ended) [[facility]ACCINE (Season Ended)] Future Scheduled 2022-05-[address] [facility] 00:00:00 (12+) [code = Medical Center DEPRESSION SCREENING (12+)] Future Scheduled 2022-05-[address] [facility] 00:00:00 (12+) [code = Medical Center DEPRESSION SCREENING (12+)] Future Scheduled 2022-05-[address] [facility] 00:00:00 (12+) [code = Medical Center DEPRESSION SCREENING (12+)] Future Scheduled 2022-05-[address] [facility] 00:00:00 (12+) [code = Medical Center DEPRESSION SCREENING (12+)] Future Scheduled 2022-05-[address] [facility] 00:00:00 (12+) [code = Medical Center DEPRESSION SCREENING (12+)] Future Scheduled 2022-04-25 Lipid panel (procedure) [facility] 00:00:00 [code = [id number]] [facility] Ce [facility]ter Future Scheduled 2022-04-25 Lipid panel (procedure) [facility] 00:00:00 [code = [id number]] [facility] Future Scheduled 2022-04-25 Lipid panel (procedure) [facility] 00:00:00 [code = [id number]] [facility] Ce [facility]ter Future Scheduled 2022-04-25 Lipid panel (procedure) [facility] 00:00:00 [code = [id number]] [facility] Ce [facility] Future Scheduled 2022-04-25 Lipid panel (procedure) [facility] 00:00:00 [code = [id number]] [facility] Future Scheduled 2022-04-25 Lipid panel (procedure) [facility] 00:00:00 [code = 73375153] [facility] Future Scheduled 2022-04-25 Lipid panel (procedure) [facility] 00:00:00 [code = 66843229] Medical Ce [facility]ter Future Scheduled 2022-04-25 Lipid panel (procedure) [facility] 00:00:00 [code = [id number]] [facility] Ce [facility]ter Future Scheduled 2022-04-25 Lipid panel (procedure) [facility] 00:00:00 [code = [id number]] Medical Ce [facility]ter Future Scheduled 2022-04-25 Lipid panel (procedure) [facility] 00:00:00 [code = 06211684] Medical Ce [facility]ter Future Scheduled 2022-04-25 Lipid panel (procedure) [facility] 00:00:00 [code = 29912398] Medical Ce [facility]ter Future Scheduled 2022-04-25 Lipid panel (procedure) [facility] 00:00:00 [code = 26169614] Medical Ce [facility]ter Future Scheduled 2022-04-25 Lipid panel (procedure) [facility] 00[facility]00:00 [code = 31694946] Medical Ce [facility]ter Future Scheduled 2022-04-25 Lipid panel (procedure) [facility] 00:00:00 [code = 61118013] Medical Ce [facility]ter Future Scheduled 2022-04-25 Lipid panel (procedure) [facility] 00:00:00 [code = 13224907] Medical Ce nter Future Scheduled 2022-01-13 INFLUENZA [...] [facility] measurement (procedure) [facility] [code = [id number]] Future Scheduled 2020-08-[address] [facility]:00 measurement (procedure) [facility] [code = 84181409] Future Scheduled 2020-08-[address] [facility] 00:00:00 measurement (procedure) [facility] [code = 25971671] Future Scheduled 2020-08-[address] [facility] 00:00:00 measurement (procedure) [facility] [code = 86286931] Future Scheduled 2020-08-[address] [facility] 00:[facility]:00 measurement (procedure) [facility] [code = 26394712] Future Scheduled 2020-08-[address] [facility] [[facility] = 58229829] Future Scheduled 2020-08-[address] [facility]00 [facility]procedure[facility] [code = 73606471] Future Scheduled 2020-08-[address] [facility]00 [facility]procedure[facility] [code = 40247564] Future Scheduled 2020-08-[address] [facility]00 [facility]procedure[facility] [code = 46831392] Future Scheduled 2020-08-[address] [facility]00 [facility]procedure[facility] [code = 57205643] Future Scheduled 2020-08-[address] [facility] 00[facility]:00 measurement (procedure) [facility] [code = 43694685] Future Scheduled 2020-08-[address] [facility]:00 [facility] (procedure[facility] [code = 51757411] Future Scheduled 2020-08-[address] [facility] 00[facility]:00 measurement (procedure) [facility] [code = 11414301] Future Scheduled 2020-08-[address] [facility] 00:00:00 measurement (procedure) [facility] [code = 59247531] Future Scheduled 2020-08-[address] [facility] 00:00:00 measurement (procedure) [facility] [code = 69904772] Future Scheduled 2020-04-24 Pneumococcal Vaccine: [facility]:00 0-64 Years (2 - PPSV23 [facility] if available, else PCV20) [code = Pneumococcal Vaccine: 0-64 Years (2 - PPSV23 if available, else PCV20)] Future Scheduled 2020-04-[address] [facility] 00:00:00 0-64 YRS (2 - PPSV23 if [facility] available, else PCV20) [code = PNEUMOCOCCAL VACCINE 0-64 YRS (2 - PPSV23 if available, else PCV20)] Future Scheduled 2012 SHINGLES VACCINES (1 [facility] [code = [facility] VACCINES (1 of 2)] Future Scheduled 2012 SHINGLES VACCINES ([address] [facility] 00:00:00 2) [code = [facility] VACCINES (1 of 2)] Future Scheduled 1983 Screening for malignant [facility] 00:00:00 neoplasm of cervix Medical C enter (procedure) [code = 726903114] Future Scheduled 1983 Screening for malignant [facility] 00:00:00 neoplasm of cervix Medical [facility] enter (procedure) [code = 339792259] Future Scheduled 1983 Screening for malignant [facility] 00:00:00 neoplasm of cervix [facility] enter (procedure) [code = 820737632] Future Scheduled 1983 Screening for malignant [facility] 00:00:00 neoplasm of cervix [facility] enter (procedure) [code = 651256200] Future Scheduled 1983 Screening for malignant [facility] 00:00:00 neoplasm of cervix Medical [facility] enter (procedure) [code = 583522468] Future Scheduled 1983 Screening for malignant [facility] 00:00:00 neoplasm of cervix Medical [facility] enter (procedure) [code = 490710124] Future Scheduled 1983 Screening for malignant [facility] 00:00:00 neoplasm of cervix Medical [facility] enter (procedure) [code = 665621524] Future Scheduled 1983 Screening for malignant [facility] 00:00:00 neoplasm of cervix [facility] enter (procedure) [code = 329354808] Future Scheduled 1983 Screening for malignant [facility] 00:00:00 neoplasm of cervix Medical [facility] enter (procedure) [code = 710811557] Future Scheduled 1983 Screening for malignant [facility] 00:00:00 neoplasm of cervix Medical [facility] enter (procedure) [code = 853803058] Future Scheduled 1983 Screening for malignant [facility] 00:00:00 neoplasm of cervix Medical [facility] enter (procedure) [code = 858985631] Future Scheduled 1983 Screening for malignant [facility] 00:00:00 neoplasm of cervix Medical [facility] enter (procedure) [code = 552348983] Future Scheduled 1983 Screening for malignant [facility] 00:00:00 neoplasm of cervix Medical [facility] enter (procedure) [code = 682753255] Future Scheduled 1983 Screening for malignant [facility] 00:00:00 neoplasm of cervix Medical [facility] enter (procedure) [code = 226676220] Future Scheduled 1983 Screening for malignant [facility] 00:00:00 neoplasm of cervix Medical [facility] enter (procedure) [code = 095078353] Future Scheduled 1981 DTAP/TDAP/TD VACCINES [facility] [...] 00:00:00 examination Medical Center (regime/therapy) [code = 998233903] Future Scheduled 1972 Urine screening for [facility] 00:00:00 protein (procedure) [facility] Center [code = 873174131] Future Scheduled 1972 DIABETIC EYE EXAM [code [facility] 00:00:00 = DIABETIC EYE EXAM] Medical Center Future Scheduled [address] [facility] (regime/therapy) [code = 842130646] Future Scheduled 1972 Urine screening for [facility] 00:00:00 protein (procedure) [facility] Center [code = 524228599] Future Scheduled 1972 DIABETIC EYE EXAM [code [facility] 00:00:00 = DIABETIC EYE EXAM] [facility] Center Future Scheduled [address] [facility]00 examination [facility] (regime/therapy) [code = 110154886] Future Scheduled 1972 Urine screening for [facility] 00:00:00 protein (procedure) [facility] Center [code = 554108193] Future Scheduled 1972 DIABETIC EYE EXAM [code [facility] 00:00:00 = DIABETIC EYE EXAM] [facility] Future Scheduled [address] [facility] 00:[facility]:00 examination [facility] Center (regime/therapy) [code = 039282191] Future Scheduled 1972 Urine screening for [facility] 00:00:00 protein (procedure) [facility] Center [code = 085349715] Future Scheduled 1972 DIABETIC EYE EXAM [code [facility] 00:00:00 = DIABETIC EYE EXAM] [facility] Future Scheduled [address] [facility] 00:[facility]00 examination [facility] (regime/therapy) [code = 000002989] Future Scheduled 1972 Urine screening for [facility] 00:00:00 protein (procedure) [facility] Center [code = 384666683] Future Scheduled 1972 DIABETIC EYE EXAM [code [facility] 00:00:00 = DIABETIC EYE EXAM] [facility] Future Scheduled [address] [facility] 00:[facility]:00 examination [facility] Center (regime/therapy) [code = 478372104] Future Scheduled 1972 Urine screening for [facility] 00:00:00 protein (procedure) [facility] Center [code = 042484152] Future Scheduled 1972 DIABETIC EYE EXAM [code [facility] 00:00:00 = DIABETIC EYE EXAM] [facility] Center Future Scheduled [address] [facility] 00:[facility]:00 examination [facility] (regime/therapy) [code = 770857203] Future Scheduled 1972 Urine screening for [facility] 00:00:00 protein (procedure) [facility] Center [code = 767677605] Future Scheduled 1972 DIABETIC EYE EXAM [code [facility] 00:00:00 = DIABETIC EYE EXAM] [facility] Future Scheduled [address] [facility] 00:[facility]:00 examination [facility] (regime/therapy) [code = 104537217] Future Scheduled 1972 Urine screening for [facility] 00:00:00 protein (procedure) [facility] Center [code = 811627967] Future Scheduled 1972 DIABETIC EYE EXAM [code [facility] 00:00:00 = DIABETIC EYE EXAM] [facility] Future Scheduled [address] [facility] 00:[facility]:00 examination [facility] (regime/therapy) [code = 603947446] Future Scheduled 1972 Urine screening for [facility] 00:00:00 protein (procedure) [facility] Center [code = 618949368] Future Scheduled 1972 DIABETIC EYE EXAM [code [facility] 00:00:00 = DIABETIC EYE EXAM] [facility] Future Scheduled [address] [facility] 00:[facility]:00 examination [facility] Center (regime/therapy) [code = 283189761] Future Scheduled 1972 DIABETIC EYE EXAM [code [facility] 00:00:00 = DIABETIC EYE EXAM] [facility] Center Future Scheduled [address] [facility] 00:00:00 examination [facility] Center (regime/therapy) [code = 353822046] Future Scheduled 1972 Urine screening for [facility] 00:00:00 protein (procedure) [facility] Center [code = 586239205] Future Scheduled 1972 Urine screening for [facility] 00:00:00 protein (procedure) [facility] Center [code = 662279076] Future Scheduled 1972 DIABETIC EYE EXAM [code [facility] 00:00:00 = DIABETIC EYE EXAM] [facility] Future Scheduled [address] [facility] 00:00:00 examination [facility] (regime/therapy) [code = 393075295] Future Scheduled 1972 Urine screening for [facility] 00:00:00 protein (procedure) [facility] Center [code = 676494444] Future Scheduled 1972 DIABETIC EYE EXAM [code [facility] 00:00:00 = DIABETIC EYE EXAM] [facility] Future Scheduled [address] [facility] 00:00:00 examination [facility] Center (regime/therapy) [code = 836328294] Future Scheduled 1972 Urine screening for [facility] 00:00:00 protein (procedure) [facility] Center [code = 510338690] Future Scheduled 1972 DIABETIC EYE EXAM [code [facility] 00:00:00 = DIABETIC EYE EXAM] Medical Center Future Scheduled [address] [facility] 00:00:00 examination [facility] Center (regime/therapy) [code = 699968033] Future Scheduled 1972 Urine screening for [facility] 00:00:00 protein (procedure) [facility] Center [code = 001821193] Future Scheduled 1972 DIABETIC EYE EXAM [code [facility] 00:00:00 = DIABETIC EYE EXAM] Medical [facility] Future Scheduled [address] [facility] 00:[facility]:00 examination [facility] Center (regime/therapy) [code = 459631835] Future Scheduled 1972 Urine screening for [facility] 00:00:00 protein (procedure) Medical Center [code = 679513138] Future Scheduled 1962 COVID-19 VACCINE (#1) [facility] [...] breast Medical C enter (procedure) [code = 369008011] Future Scheduled 1962 CT Colonography (combo) [facility] 00:00:00 [code = CT Colonography [facility] (combo)] Future Scheduled 1962 Screening for malignant [facility] 00:00:00 neoplasm of colon Medical Ce nter (procedure) [code = 475090590] Future Scheduled 1962 Screening for malignant [facility] 00:00:00 neoplasm of colon Medical Ce nter (procedure) [code = 230249289] Future Scheduled 1962 Screening for malignant [facility] 00:00:00 neoplasm of colon Medical Ce [facility]ter (procedure) [code = 542582558] Future Scheduled 1962 Screening for malignant [facility] 00:00:00 neoplasm of colon Medical Ce [facility]ter (procedure) [code = 171547026] Future Scheduled 1962 Sigmoidoscopy [code = [facility] S[facility]oscopy] [facility] Cent[facility] Future Scheduled 1962 Screening for malignant [facility] 00:00:00 neoplasm of breast Medical C enter (procedure) [code = 090753781] Future Scheduled 1962 CT Colonography (combo) [facility] 00:00:00 [code = CT Colonography [facility] (combo)] Future Scheduled 1962 Screening for malignant [facility] 00:00:00 neoplasm of colon Medical Ce nter (procedure) [code = 553716289] Future Scheduled 1962 Screening for malignant [facility] 00:00:00 neoplasm of colon Medical Ce nter (procedure) [code = 425313591] Future Scheduled 1962 Screening for malignant [facility] 00:00:00 neoplasm of colon Medical Ce nter (procedure) [code = 900039203] Future Scheduled 1962 Screening for malignant [facility] 00:00:00 neoplasm of colon Medical Ce [facility]ter (procedure) [code = 345081180] Future Scheduled 1962 Sigmoidoscopy [code = [facility] Sigmoidoscopy] [facility] Cent[facility] Future Scheduled 1962 Screening for malignant [facility] 00:00:00 neoplasm of breast Medical C enter (procedure) [code = 056182142] Future Scheduled 1962 CT Colonography (combo) [facility] 00:00:00 [code = [facility] ([facility] Future Scheduled 1962 Screening for malignant [facility] 00:00:00 neoplasm of colon Medical Ce nter (procedure) [code = 167676951] Future Scheduled 1962 Screening for malignant [facility] 00:00:00 neoplasm of colon Medical Ce nter (procedure) [code = 124686575] Future Scheduled 1962 Screening for malignant [facility] 00:00:00 neoplasm of colon Medical Ce nter (procedure) [code = 330750625] Future Scheduled 1962 Screening for malignant [facility] 00:00:00 neoplasm of colon Medical Ce nter (procedure) [code = 829985130] Future Scheduled 1962 Sigmoidoscopy [code [facility] S[facility]oidoscopy] [facility] Future Scheduled 1962 Screening for malignant [facility] 00:00:00 neoplasm of breast Medical C enter (procedure) [code = 303204346] Future Scheduled 1962 CT Colonography (combo) [facility] 00:00:00 [code = [facility] ([facility])] Future Scheduled 1962 Screening for malignant [facility] 00:00:00 neoplasm of colon Medical Ce [facility]ter (procedure) [code = 963442496] Future Scheduled 1962 Screening for malignant [facility] 00:00:00 neoplasm of colon Medical Ce nter (procedure) [code = 617383301] Future Scheduled 1962 Screening for malignant [facility] 00:00:00 neoplasm of colon Medical Ce nter (procedure) [code = 811648766] Future Scheduled 1962 Screening for malignant [facility] 00:00:00 neoplasm of colon Medical Ce nter (procedure) [code = 971911409] Future Scheduled 1962 Sigmoidoscopy [code = [facility] S[facility]oscopy] [facility] Cent[facility] Future Scheduled 1962 Screening for malignant [facility] 00:00:00 neoplasm of breast Medical C enter (procedure) [code = 830971623] Future Scheduled 1962 CT Colonography (combo) [facility] 00:00:00 [code = [facility] ([facility])] Future Scheduled 1962 Screening for malignant [facility] 00:00:00 neoplasm of colon Medical Ce nter (procedure) [code = 669187069] Future Scheduled 1962 Screening for malignant [facility] 00:00:00 neoplasm of colon Medical Ce nter (procedure) [code = 426423688] Future Scheduled 1962 Screening for malignant [facility] 00:00:00 neoplasm of colon Medical Ce nter (procedure) [code = 653964103] Future Scheduled 1962 Screening for malignant [facility] 00:00:00 neoplasm of colon Medical Ce [facility]ter (procedure) [code = 848770089] Future Scheduled 1962 Sigmoidoscopy [facility] S[facility]oscopy] [facility] Future Scheduled 1962 Screening for malignant [facility] 00:00:00 neoplasm of breast Medical C enter (procedure) [code = 409738730] Future Scheduled 1962 CT Colonography (combo) [facility] 00[facility]00:00 [code = [facility] ([facility])] Future Scheduled 1962 Screening for malignant [facility] 00:00:00 neoplasm of colon Medical Ce [facility]ter (procedure) [code = 057016385] Future Scheduled 1962 Screening for malignant [facility] 00:00:00 neoplasm of colon Medical Ce [facility]ter (procedure) [code = 859463991] Future Scheduled 1962 Screening for malignant [facility] 00:00:00 neoplasm of colon [facility] Ce [facility]ter (procedure) [code = 989203805] Future Scheduled 1962 Screening for malignant [facility] 00:00:00 neoplasm of colon Medical Ce [facility]ter (procedure) [code = 079088489] Future Scheduled 1962 Sigmoidoscopy [facility]code [facility] S[facility]oscopy] [facility] Future Scheduled 1962 Screening for malignant [facility] 00:00:00 neoplasm of breast Medical C enter (procedure) [code = 582290465] Future Scheduled 1962 CT Colonography (combo) [facility] 00:00:00 [code = [facility] ([facility])] Future Scheduled 1962 Screening for malignant [facility] 00:00:00 neoplasm of colon Medical Ce [facility]ter (procedure) [code = 724370736] Future Scheduled 1962 Screening for malignant [facility] 00:00:00 neoplasm of colon [facility] Ce [facility]ter (procedure) [code = 394022706] Future Scheduled 1962 Screening for malignant [facility] 00:00:00 neoplasm of colon [facility] Ce [facility]ter (procedure) [code = 497217617] Future Scheduled 1962 Screening for malignant [facility] 00:00:00 neoplasm of colon [facility] Ce [facility]ter (procedure) [code = 357520284] Future Scheduled 1962 Sigmoidoscopy [code = [facility] S[facility]oscopy] [facility] Future Scheduled 1962 Screening for malignant [facility] 00:00:00 neoplasm of breast Medical C enter (procedure) [code = 272284022] Future Scheduled 1962 CT Colonography (combo) [facility] 00:00:00 [code = [facility] ([facility])] Future Scheduled 1962 Screening for malignant [facility] 00:00:00 neoplasm of colon Medical Ce [facility]ter (procedure) [code = 073263492] Future Scheduled 1962 Screening for malignant [facility] 00:00:00 neoplasm of breast Medical C enter (procedure) [code = 581860063] Future Scheduled 1962 CT Colonography (combo) [facility] 00:00:00 [code = [facility] ([facility])] Future Scheduled 1962 Screening for malignant [facility] 00:00:00 neoplasm of colon Medical Ce [facility]ter (procedure) [code = 303726850] Future Scheduled 1962 Screening for malignant [facility] 00:00:00 neoplasm of colon Medical Ce [facility]ter (procedure) [code = 514245001] Future Scheduled 1962 Screening for malignant [facility] 00:00:00 neoplasm of colon Medical Ce [facility]ter (procedure) [code = 091435257] Future Scheduled 1962 Screening for malignant [facility] 00:00:00 neoplasm of colon [facility] Ce [facility] (procedure) [code = 479046703] Future Scheduled 1962 Sigmoidoscopy [facility]code [facility] Screening for malignant [facility] 00:00:00 neoplasm of colon Medical Ce [facility]ter (procedure) [code = 505948206] Future Scheduled 1962 Screening for malignant [facility] 00:00:00 neoplasm of colon [facility] Ce [facility]ter (procedure) [code = 342194075] Future Scheduled 1962 Screening for malignant [facility] 00:00:00 neoplasm of colon Medical Ce [facility]ter (procedure) [code = 544768055] Future Scheduled 1962 Screening for malignant [facility] 00:00:00 neoplasm of breast Medical C enter (procedure) [code = 355223438] Future Scheduled 1962 CT Colonography (combo) [facility] 00:00:00 [code = [facility] Future Scheduled 1962 Screening for malignant [facility] 00:00:00 neoplasm of colon [facility] Ce [facility] (procedure) [code = 058995457] Future Scheduled 1962 Screening for malignant [facility] 00:00:00 neoplasm of colon [facility] Ce [facility]ter (procedure) [code = 612409423] Future Scheduled 1962 Sigmoidoscopy [code = [facility] Sigmoidoscopy] [facility] Future Scheduled 1962 Screening for malignant [facility] 00:00:00 neoplasm of colon Medical Ce [facility]ter (procedure) [code = 370802555] Future Scheduled 1962 Screening for malignant [facility] 00:00:00 neoplasm of colon [facility] Ce [facility]ter (procedure) [code = 496266757] Future Scheduled 1962 Sigmoidoscopy [code = [facility] S[facility]oscopy] [facility] Future Scheduled 1962 Screening for malignant [facility] 00:00:00 neoplasm of breast Medical C enter (procedure) [code = 653649121] Future Scheduled 1962 CT Colonography (combo) [facility] 00:00:00 [code = [facility] ([facility] Future Scheduled 1962 Screening for malignant [facility] 00:00:00 neoplasm of colon [facility] Ce [facility]ter (procedure) [code = 502550520] Future Scheduled 1962 Screening for malignant [facility] 00:00:00 neoplasm of colon Medical Ce [facility]ter (procedure) [code = 083223157] Future Scheduled 1962 Screening for malignant [facility] 00:00:00 neoplasm of colon Medical Ce [facility]ter (procedure) [code = 712705575] Future Scheduled 1962 Screening for malignant [facility] 00:00:00 neoplasm of colon Medical Ce [facility]ter (procedure) [code = 237750538] Future Scheduled 1962 Sigmoidoscopy [code = [facility] S[facility]oscopy] [facility] Future Scheduled 1962 Screening for malignant [facility] 00:00:00 neoplasm of breast Medical C enter (procedure) [code = 704728945] Future Scheduled 1962 CT Colonography (combo) [facility] 00[facility]00:00 [code = [facility] ([facility] Future Scheduled 1962 Screening for malignant [facility] 00:00:00 neoplasm of colon [facility] Ce [facility] (procedure) [code = 024430902] Future Scheduled 1962 Screening for malignant [facility] 00:00:00 neoplasm of colon [facility] Ce [facility] (procedure) [code = 163942889] Future Scheduled 1962 Screening for malignant [facility] 00:00:00 neoplasm of colon [facility] Ce [facility] (procedure) [code = 894193515] Future Scheduled 1962 Screening for malignant [facility] 00:00:00 neoplasm of colon Medical Ce [facility]ter (procedure) [code = 959857886] Future Scheduled 1962 Sigmoidoscopy [code = [facility] Sigmoidoscopy] [facility] Future Scheduled 1962 Screening for malignant [facility] 00:00:00 neoplasm of breast Medical C enter (procedure) [code = 651021567] Future Scheduled 1962 CT Colonography (combo) [facility] 00:00:00 [code = [facility] ([facility] Future Scheduled 1962 Screening for malignant [facility] 00:00:00 neoplasm of colon Medical Ce nter (procedure) [code = 426483180] Future Scheduled 1962 Screening for malignant [facility] 00:00:00 neoplasm of colon Medical Ce nter (procedure) [code = 575927045] Future Scheduled 1962 Screening for malignant [facility] 00:00:00 neoplasm of colon Medical Ce nter (procedure) [code = 311677441] Future Scheduled 1962 Screening for malignant [facility] 00:00:00 neoplasm of colon Medical Ce nter (procedure) [code = 370993230] Future Scheduled 1962 Sigmoidoscopy [code = [facility]] [facility] Future Scheduled 1962 Screening for malignant [facility] 00:00:00 neoplasm of breast Medical C enter (procedure) [code = 394488317] Future Scheduled 1962 CT Colonography (combo) [facility] 00:00:00 [code = CT [facility] Future Scheduled 1962 Screening for malignant [facility] 00:00:00 neoplasm of colon Medical Ce nter (procedure) [code = 573366837] Future Scheduled 1962 Screening for malignant [facility] 00:00:00 neoplasm of colon Medical Ce nter (procedure) [code = 805971471] Future Scheduled 1962 Screening for malignant [facility] 00:00:00 neoplasm of colon Medical Ce nter (procedure) [code = 708360174] Future Scheduled 1962 Screening for malignant [facility] 00:00:00 neoplasm of colon Medical Ce nter (procedure) [code = 488905221] Future Scheduled 1962 Sigmoidoscopy [code = [facility]] Medical Cente r Future Scheduled 1962 Screening for malignant [facility] 00:00:00 neoplasm of breast Medical C enter (procedure) [code = 755232016] Future Scheduled 1962 CT Colonography (combo) [facility] 00:00:00 [code = CT Colonography [facility] (combo)] Future Scheduled 1962 Screening for malignant [facility] 00:00:00 neoplasm of colon Medical Ce nter (procedure) [code = 494508481] Future Scheduled 1962 Screening for malignant [facility] 00:00:00 neoplasm of colon Medical Ce nter (procedure) [code = 826286722] Future Scheduled 1962 Screening for malignant [facility] 00:00:00 neoplasm of colon Medical Ce nter (procedure) [code = 409363842] Future Scheduled 1962 Screening for malignant [facility] 00:00:00 neoplasm of colon Medical Ce nter (procedure) [code = 735494857] Future Scheduled 1962 Sigmoidoscopy [code = [facility]] Medical Cente r Goal Plan of Care Note [code = 91686-2] Goal Plan of Care Note [code = 94010-4] Goal Plan of Care Note [code = 91459-6] Goal Plan of Care Note [code = 07435-7] Goal Plan of Care Note [code = 31731-5] Goal Plan of Care Note [code = 39759-1] Goal Plan of Care Note [code = 06323-6] Goal Plan of Care Note [code = 31788-5] Goal Plan of Care Note [code = 38305-7] Goal Plan of Care Note [code = 00120-4] Goal Plan of Care Note [code = 84628-0] Goal Plan of Care Note [code = 61971-7] Goal Plan of Care Note [code = 16704-9] Goal Plan of Care Note [code = 29191-7] Goal Plan of Care Note [code = 71436-4] Goal Plan of Care Note [code = 23570-6] Goal Plan of Care Note [code = 67005-3] Goal Plan of Care Note [code = 15061-5] Goal Plan of Care Note [code = 40164-2] Goal Plan of Care Note [code = 70630-4] Goal Plan of Care Note [code = 00845-9] Goal Plan of Care Note [code = 01941-7] Goal Plan of Care Note [code = 36834-8] Goal Plan of Care Note [code = 54084-6] Goal Plan of Care Note [code = 08020-6] Goal Plan of Care Note [code = 24795-1] Goal Plan of Care Note [code = 17366-4] Goal Plan of Care Note [code = 78575-1] Goal Plan of Care Note [code = 06282-2] Goal Plan of Care Note [code = 39234-8] Goal Plan of Care Note [code = 95260-6] Goal Plan of Care Note [code = 07468-4] Goal Plan of Care Note [code = 41655-7] Goal Plan of Care Note [code = 87636-9] Goal Plan of Care Note [code = 07172-2] Goal Plan of Care Note [code = 88955-4] Goal Plan of Care Note [code = 74968-4] Goal Plan of Care Note [code = 09108-1] Goal Plan of Care Note [code = 64633-6] Goal Plan of Care Note [code = 81528-4] Goal Plan of Care Note [code = 97745-9] Goal Plan of Care Note [code = 75850-9] Goal Plan of Care Note [code = 83886-3] Goal Plan of Care Note [code = 94277-9] Goal Plan of Care Note [code = 92897-8] Goal Plan of Care Note [code = 60017-6] Goal Plan of Care Note [code = 32997-2] Goal Plan of Care Note [code = 85880-7] Goal Plan of Care Note [code = 21406-7] Goal Plan of Care Note [code = 37301-3] Goal Plan of Care Note [code = 61512-1] Goal Plan of Care Note [code = 46490-1] Goal Plan of Care Note [code = 15785-2] Goal Plan of Care Note [code = 75386-8] Goal Plan of Care Note [code = 00160-8] Goal Plan of Care Note [code = 41531-4] Goal Plan of Care Note [code = 86870-0] Goal Plan of Care Note [code = 87429-6] Goal Plan of Care Note [code = 48388-8] Goal Plan of Care Note [code = 41944-1] Goal Plan of Care Note [code = 50820-1] Goal Plan of Care Note [code = 19898-3] Goal Plan of Care Note [code = 41453-1] Goal Plan of Care Note [code = 08593-9] Goal Plan of Care Note [code = 00410-9] Goal Plan of Care Note [code = 40618-9] Goal Plan of Care Note [code = 70174-0] Goal Plan of Care Note [code = 66447-0] Goal Plan of Care Note [code = 60174-2] Goal Plan of Care Note [code = 20547-0] Goal Plan of Care Note [code = 34895-4] Goal Plan of Care Note [code = 74080-9] Goal Plan of Care Note [code = 42996-4] Goal Plan of Care Note [code = 70621-9] Goal Plan of Care Note [code = 88831-1] Goal Plan of Care Note [code = 04867-5] Goal Plan of Care Note [code = 73406-4] Goal Plan of Care Note [code = 26434-1] Goal Plan of Care Note [code = 58242-0] Goal Plan of Care Note [code = 40018-4] Goal Plan of Care Note [code = 40108-3] Goal Plan of Care Note [code = 55160-9] Goal Plan of Care Note [code = 86655-9] Goal Plan of Care Note [code = 36197-3] Goal Plan of Care Note [code = 53001-9] Goal Plan of Care Note [code = 72374-7] Goal Plan of Care Note [code = 06307-0] Goal Plan of Care Note [code = 25464-6] Goal Plan of Care Note [code = 28049-0] Goal Plan of Care Note [code = 84929-3] Goal Plan of Care Note [code = 82463-4] Goal Plan of Care Note [code = 24837-7] Goal Plan of Care Note [code = 71749-6] Goal Plan of Care Note [code = 81838-8] Goal Plan of Care Note [code = 16431-9] Goal Plan of Care Note [code = 76363-3] Goal Plan of Care Note [code = 75798-9] Goal Plan of Care Note [code = 84221-3] Goal Plan of Care Note [code = 11397-6] Goal Plan of Care Note [code = 94962-4] Goal Plan of Care Note [code = 06715-3] Goal Plan of Care Note [code = 57887-1] Goal Plan of Care Note [code = 71139-5] Goal Plan of Care Note [code = 68142-8] Goal Plan of Care Note [code = 02801-0] Goal Plan of Care Note [code = 07224-8] Goal Plan of Care Note [code = 95584-7] Goal Plan of Care Note [code = 89661-3] Goal Plan of Care Note [code = 51840-8] Goal Plan of Care Note [code = 26852-5] Goal Plan of Care Note [code = 21328-5] Goal Plan of Care Note [code = 03915-0] Goal Plan of Care Note [code = 25050-8] Goal Plan of Care Note [code = 76132-7] Goal Plan of Care Note [code = 82724-8] Goal Plan of Care Note [code = 24417-3] Goal Plan of Care Note [code = 61967-2] Goal Plan of Care Note [code = 01253-5] Goal Plan of Care Note [code = 35535-8] Goal Plan of Care Note [code = 35377-1] Goal Plan of Care Note [code = 17927-3] Goal Plan of Care Note [code = 65721-6] Goal Plan of Care Note [code = 20602-6] Goal Plan of Care Note [code = 40974-3] Goal Plan of Care Note [code = 47749-7] Goal Plan of Care Note [code = 92772-7] Goal Plan of Care Note [code = 37940-4] Goal Plan of Care Note [code = 04006-2] Goal Plan of Care Note [code = 00468-5] Goal Plan of Care Note [code = 79815-6] Goal Plan of Care Note [code = 59617-8] Goal Plan of Care Note [code = 17232-5] Goal Plan of Care Note [code = 29482-0] Goal Plan of Care Note [code = 46126-9] Goal Plan of Care Note [code = 83221-0] Goal Plan of Care Note [code = 09879-9] Goal Plan of Care Note [code = 03065-4] Goal Plan of Care Note [code = 91425-5] Goal Plan of Care Note [code = 74798-0] Goal Plan of Care Note [code = 97629-9] Goal Plan of Care Note [code = 89817-8] Goal Plan of Care Note [code = 21694-4] Goal Plan of Care Note [code = 90984-2] Goal Plan of Care Note [code = 34299-6] Goal Plan of Care Note [code = 07158-1] Goal Plan of Care Note [code = 99632-9] Goal Plan of Care Note [code = 85869-5] Goal Plan of Care Note [code = 85071-5] Goal Plan of Care Note [code = 91185-6] Goal Plan of Care Note [code = 29085-5] Goal Plan of Care Note [code = 54031-7] Goal Plan of Care Note [code = 25982-3] Goal Plan of Care Note [code = 98794-4] Encounters Start End Encounter Admission Attending Care Care Encounter Source Date/Time Date/Time Type Type Clinicians Facility Department ID 2022-10-29 Inpatient CHEL Ybarra, [facility] CATH [id number] [facility] 07:00:[address] 2020-03-13 Inpatient ER WILLIE SOLIS Neurology [id number] SLE 05:05:00 [place] 2020-02-27 Inpatient ER WILLIE SAMPSON Neuro ICU [id number] SLE 22:20:00 SITA 2022-10-19 2022-10-19 Outpatient SFA SFA 55202-2 023 Jalen 10:09:45 10:09:45 0607 F Ant 2022-09-14 2022-09-14 [facility] 2.16.840. 2.16.840.1. [facility] XZHKRK [facility] 19:00:00 20:00:00 Iyanbaljeet [id number]. [id number]. [address] [id number] [id number] 2022-08-16 2022-08-16 Outpatient DMG DM 558232- [facility] 00:00:00 00:00:00 [address] [facility] 2022-08-16 2022-08-16 Outpatient DMG DM 271629- [facility] 00:00:00 00:00:00 [address] [facility] 2022-08-09 2022-08-09 Outpatient DMG DMG [id number]- [facility] 00:00:00 00:00:00 33846 [facility] Group 2022-07-01 2022-07-01 Outpatient SFA SFA 35046-9 023 Jalen 09:58:59 09:58:59 0217 F Ant 2022-06-30 2022-06-30 Outpatient SFA SFA 18144-2 023 Jalen 08:20:54 08:20:54 0216 F Ant 2022-06-16 2022-06-16 Outpatient SFA SFA 51112-6 023 Jalen 14:33:03 14:33:03 0202 F Ant 2022-04-18 2022-04-18 Outpatient SFA SFA 91314-3 022 Jalen 11:45:59 11:45:59 1205 F Ant 2022-04-14 2022-04-14 Outpatient SFA SFA 23435-2 022 Jalen 07:59:09 07:59:09 1201 F Ant 2022-04-14 2022-04-14 Outpatient m53fi34i- [id number] e9 0qe65k-6 00:00:00 00:00:00 Visit 7558-47c5 558-47c5-9 -973d-783 73d-783d2b y4h85erq7 58caf0 2022-04-12 2022-04-12 Outpatient SFA SFA 48400-8 022 Jalen 14:33:59 14:33:59 1129 F Ant 2022-04-11 2022-04-11 Outpatient SFA SFA 02490-0 022 Jalen 18:52:29 18:52:29 1128 F Ant 2022-04-11 2022-04-11 Outpatient i3a50523- [id number] f2 u03815-5 00:00:00 00:00:00 Visit 0812-4bed 812-4bed-b -bdd8-65e dd8-65ebda zsjx74h0j f21a6d 2022-03-18 2022-03-18 Outpatient SFA SFA 63794-9 022 Jalen 10:30:06 10:30:06 1104 F Ant 2022-03-18 2022-03-18 Outpatient 5av46qmc- [id number] 3f s26ysh-8 00:00:00 00:00:00 Visit 1827-4b7e 827-4b7e-9 -7w44-tr5 a34-hr681h 14sc1m153 z5h210 2022-03-09 2022-03-09 Outpatient y1e8d9w0- [id number] f8 z2r8b1-f 00:00:00 00:00:00 Visit hx29-0594 t91-8227-o -s2s9-292 1x2-074n08 h002i0113 1y5333 2022-02-18 2022-02-18 Outpatient SFA SFA 82343-7 022 Jalen 11:32:23 11:32:23 1007 F Ant 2022-02-10 2022-02-10 Outpatient SFA SFA 26589-4 022 Jalen 11:58:44 11:58:44 0929 F Ant 2022-02-09 2022-02-09 Outpatient 856x9c93- [id number] 0r1j08-2 00:00:00 00:00:00 Visit 6449-4af1 449-4af1-a -nf97-445 s47-386w41 w232s783f 8g780n 2021-12-06 2021-12-06 Outpatient 5g6q2843- [id number] 8n4689-c 00:00:00 00:00:00 Visit q517-23yg 485-44bf-8 -88af-3be 8af-3bee40 b170q10x2 4c72f4 2020-03-27 2020-03-27 Outpatient WILLIE RODRIGUEZ [facility] [id number] SLE 00:00:00 00:00:00 BIJI Results Test Description Test Time Test Comments Results Result Comments Source ALBUMIN/CREATININE RATIO, URINE, RANDOM 2022-10-20 04:25:11 Test Item Value Reference Range Interpretation Comme nts CREATININE, URINE, CONC. (test 132.6 MG/DL NOT ESTAB code = 2072) ALBUMIN, URINE, RANDOM (test 3.1 MG/DL NOT ESTAB code = 20576) CALC ALBUMIN/CREAT, RND (test 23 MG/G <30 Note: Albumin/Creatinine ratio code = 46280) reference inte rval reflects ADA and NKF guideli amado. UNLESS OTHERWISE INDIC ATED, ALL TESTING PERFORM ED AT CLINICAL PATHOLOGY [facility], [facility]. [address] [place] [address] LABORATORY DIRE CTOR: NILESH MONTOYA M.D. C EVERARDO NUMBER [id number] [facility] [place]. [id number] HEMOGLOBIN [id number] 02:46:20 Test Item Value Reference Range Interpretation Comments HEMOGLOBIN A1c (test 7.5 % 4.2-5.6 H AMERIC AN DIABETES code = 61389) ASSOCIATION IDELINES FOR HGB A1C: PREDIABETES/INC REASED RISK . . . . . . . 5.7 -6.4% DIAGNOSIS OF DI ABETES . . . . . . . . . >=6 .5% WITH CONFIRMATION OR APPROPRIATE SYMPTOMS NOTE: ASSAY MAY BE AFFECTED BY HEMOGLOBINOPATH IES (SICKLE CELL ANEMIA, S- C DISEASE, OTHERS) OR MARLEEN FICIALLY LOWERED BY DEC REASED RED CELL SURVIVAL ( HEMOLYTIC ANEMIAS, BLOOD LOSS, ETC.). CONSIDER ALTERN ATE TESTING OR LABORATORY C ONSULTATION. COMPREHENSIVE METABOLIC [id number] 06:06:12 Test Item Value Reference Range Interpretation Comments GLUCOSE (test code = 229 MG/DL 70-99 H 2216) BUN (test code = 8 MG/DL 8-23 2207) CREATININE (test 0.66 MG/DL 0.60-1.30 code = 2213) eGFR (2020 CKD-EPI) 100 >60 (test code = 05228) ML/MIN/1.73 CALC BUN/CREAT (test 12 RATIO 6-28 code = 2235) SODIUM (test code = 139 MEQ/L 583-122 7195) POTASSIUM (test code 4.2 MEQ/L 3.5-5.4 = 2227) CHLORIDE (test code 102 MEQ/L 95-107 = 2214) CARBON DIOXIDE (test 24 MEQ/L 19-31 code = 2205) CALCIUM (test code = 9.4 MG/DL 8.5-10.5 2208) PROTEIN, TOTAL (test 7.3 G/DL 6.1-8.3 code = 2228) ALBUMIN (test code = 4.3 G/DL 3.5-5.2 2200) CALC GLOBULIN (test 3.0 G/DL 1.9-3.7 code = 2239) CALC A/G RATIO (test 1.4 RATIO 1.0-2.6 code = 2233) BILIRUBIN, TOTAL 0.4 MG/DL See_Comment [Automated message] (test code = 2206) The syste m which generated this result transmit magda reference range : <=1.2. The refe rence range was not u sed to interpret th is result as normal/abnormal . ALKALINE PHOSPHATASE 135 U/L 40-136 (test code = 2203) AST (test code = 15 U/L 9-40 2217) ALT (test code = 14 U/L 5-40 2218) LIPID [id number] 06:06:12 Test Item Value Reference Range Interpretation Comments CHOLESTEROL (test 133 MG/DL <200 code = 2210) TRIGLYCERIDES (test 149 MG/DL <150 code = 2232) HDL CHOLESTEROL (test 42 MG/DL >39 code = 2220) CALC LDL CHOL (test 68 MG/DL <100 NOTE: C ALCULATED LDL code = 2237) IS BASED ON ANT-DAS METHOD WHICHINCLUDES ADJUSTABLE TRIGLYCERIDE:VL DL CHOLESTEROL RAT IO.THIS FACTOR VARIES B Y MEASURED TRIGLY CERIDE AND NON-HDLCHOL ESTEROL CONCENTRATIONS WITH INCREASED CALCU LATED LDL SEENIN HIGH ER TRIGLYCERIDE OR LOWER NON-HDL SPECIME NS. FOR MOREINFORMATION , SEE CLIENT ANNOUNCE MENT AT [email or web address] LDL/HDL 1.62 RATIO <3.22 [facility] has important (test code = 2238) pathology staff changes effecti ve 07/13/2022. New pathology staff will provide uninter rupted, excellent patie nt care and clinical consultation. S ee URL: [email or web address]. UNLES S OTHERWISE INDIC ATED, ALL TESTING PER FORMED AT CLINICAL [facility] [employer], [facility]. [address] [facility], [place] CLIA: [id number], CAP: [id number] HEMOGLOBIN [id number] 04:02:10 Test Item Value Reference Range Interpretation Comments HEMOGLOBIN A1c (test 8.3 % 4.2-5.6 H AMERI CAN DIABETES code = 88628) ASSOCIATION IDELINES FOR HGB A1C: PREDIABETES/INC REASED [...] ALTERN ATE TESTING OR LABORATORY C ONSULTATION. COMPREHENSIVE METABOLIC [id number] 00:00:00 Test Item Value Reference Range Interpretation Comments GLUCOSE (test code = 2217) 129 MG/DL BUN (test code = 2208) 5 MG/DL CREATININE (test code = 2214) 0.64 MG/DL eGFR (2020 CKD-EPI) (test 102 ML/MIN/1.73 code = 10387) CALC BUN/CREAT (test code = 8 RATIO 2234) SODIUM (test code = 2231) 144 MEQ/L POTASSIUM (test code = 2228) 3.2 MEQ/L CHLORIDE (test code = 2215) 105 MEQ/L CARBON DIOXIDE (test code = 26 MEQ/L 2205) CALCIUM (test code = 2209) 8.9 MG/DL PROTEIN, TOTAL (test code = 6.5 G/DL 2229) ALBUMIN (test code = 2201) 3.9 G/DL CALC GLOBULIN (test code = 2.6 G/DL 2240) CALC A/G RATIO (test code = 1.5 RATIO 2234) BILIRUBIN, TOTAL (test code = 0.4 MG/DL 220) ALKALINE PHOSPHATASE (test 112 U/L code = 2204) AST (test code = 2218) 24 U/L ALT (test code = 2219) 15 U/L COMPREHENSIVE METABOLIC [id number] 00:00:00 Test Item Value Reference Range Interpretation Comments GLUCOSE (test code = 2217) 129 MG/DL BUN (test code = 2208) 5 MG/DL CREATININE (test code = 2214) 0.64 MG/DL eGFR (2020 CKD-EPI) (test 102 ML/MIN/1.73 code = 48794) CALC BUN/CREAT (test code = 8 RATIO [...] = 0.4 MG/DL 2207) ALKALINE PHOSPHATASE (test 112 U/L code = 2204) AST (test code = 2218) 24 U/L ALT (test code = 2219) 15 U/L COMPREHENSIVE METABOLIC [id number] 00:00:00 Test Item Value Reference Range Interpretation Comments GLUCOSE (test code = 2217) 129 MG/DL BUN (test code = 2208) 5 MG/DL CREATININE (test code = 2214) 0.64 MG/DL eGFR (2020 CKD-EPI) (test 102 ML/MIN/1.73 code = 37062) CALC BUN/CREAT (test code = 8 RATIO 2235) SODIUM (test code = 2231) 144 MEQ/L POTASSIUM (test code = 2228) 3.2 MEQ/L CHLORIDE (test code = 2215) 105 MEQ/L CARBON DIOXIDE (test code = 26 MEQ/L 2206) CALCIUM (test code = 2209) 8.9 MG/DL PROTEIN, TOTAL (test code = 6.5 G/DL 2229) ALBUMIN (test code = 2201) 3.9 G/DL CALC GLOBULIN (test code = 2.6 G/DL 2240) CALC A/G RATIO (test code = 1.5 RATIO 2234) BILIRUBIN, TOTAL (test code = 0.4 MG/DL 2206) ALKALINE PHOSPHATASE (test 112 U/L code = 2204) AST (test code = 2218) 24 U/L ALT (test code = 2219) 15 U/L COMPREHENSIVE METABOLIC [id number] 00:00:00 Test Item Value Reference Range Interpretation Comments GLUCOSE (test code = 2217) 129 MG/DL BUN (test code = 2208) 5 MG/DL CREATININE (test code = 2214) 0.64 MG/DL eGFR (2020 CKD-EPI) (test 102 ML/MIN/1.73 code = 97574) CALC BUN/CREAT (test code = 8 RATIO 2235) SODIUM (test code = 2231) 144 MEQ/L POTASSIUM (test code = 2228) 3.2 MEQ/L CHLORIDE (test code = 2215) 105 MEQ/L CARBON DIOXIDE (test code = 26 MEQ/L 6) CALCIUM (test code = 2209) 8.9 MG/DL PROTEIN, TOTAL (test code = 6.5 G/DL 2228) ALBUMIN (test code = 2201) 3.9 G/DL CALC GLOBULIN (test code = 2.6 G/DL 2240) CALC A/G RATIO (test code = 1.5 RATIO 2234) BILIRUBIN, TOTAL (test code = 0.4 MG/DL 2207) ALKALINE PHOSPHATASE (test 112 U/L code = 2204) AST (test code = 2218) 24 U/L ALT (test code = 2219) 15 U/L COMPREHENSIVE METABOLIC [id number] 00:00:00 Test Item Value Reference Range Interpretation Comments GLUCOSE (test code = 2217) 129 MG/DL BUN (test code = 2208) 5 MG/DL CREATININE (test code = 2214) 0.64 MG/DL eGFR (2020 CKD-EPI) (test 102 ML/MIN/1.73 code = 52158) CALC BUN/CREAT (test code = 8 RATIO [...] code = 2219) 15 U/L COMPREHENSIVE METABOLIC [id number] 00:00:00 Test Item Value Reference Range Interpretation Comments GLUCOSE (test code = 2217) 129 MG/DL BUN (test code = 2208) 5 MG/DL CREATININE (test code = 2214) 0.64 MG/DL eGFR (2020 CKD-EPI) (test 102 ML/MIN/1.73 code = 54314) CALC BUN/CREAT (test code = 8 RATIO [...] BILIRUBIN, TOTAL (test code = 0.4 MG/DL 7) ALKALINE PHOSPHATASE (test 112 U/L code = 2204) AST (test code = 2218) 24 U/L ALT (test code = 2219) 15 U/L [id number] 03:32:33 Test Item Value Reference Range Interpretation Comments POTASSIUM (test code 3.6 MEQ/L 3.5-5.4 UNLESS OTHERWISE = 2228) INDICATED, ALL TESTING [facility]FORMED [facility] [employer]. [address] [place] [address] 4 LABORATORY DIRE CTOR: Abigail VERDEIA NUMBER [id number] [facility] ACCREDITA ON NO. [id number] 00:00:00 Test Item Value Reference Range Interpretation Comments POTASSIUM (test code = 2228) 3.6 MEQ/L [id number] 00:00:00 Test Item Value Reference Range Interpretation Comments POTASSIUM (test code = 2228) 3.6 MEQ/L [id number] 00:00:00 Test Item Value Reference Range Interpretation Comments POTASSIUM (test code = 2228) 3.6 MEQ/L [id number] 00:00:00 Test Item Value Reference Range Interpretation Comments POTASSIUM (test code = 2228) 3.6 MEQ/L [id number] 00:00:00 Test Item Value Reference Range Interpretation Comments POTASSIUM (test code = 2228) 3.6 MEQ/L [id number] 00:00:00 Test Item Value Reference Range Interpretation Comments POTASSIUM (test code = 2228) 3.6 MEQ/L [id number] 00:00:00 Test Item Value Reference Range Interpretation Comments POTASSIUM (test code = 2228) 3.6 MEQ/L [id number] 00:00:00 Test Item Value Reference Range Interpretation Comments POTASSIUM (test code = 2228) 3.6 MEQ/L [id number] 03:53:32 Test Item Value Reference Range Interpretation Comments POTASSIUM (test code 3.4 MEQ/L 3.5-5.4 L UNLESS OTHERWISE = 2228) INDICATED, ALL TESTING PERFORMED [facility] [employer] [address] [place] [address] 4 LABORATORY DIRE CTOR: Abigail VERDE NUMBER [id number] [facility] ACCREDITATI ON NO. [id number] 00:00:00 Test Item Value Reference Range Interpretation Comments POTASSIUM (test code = 2228) 3.4 MEQ/L [id number] 00:00:00 Test Item Value Reference Range Interpretation Comments POTASSIUM (test code = 2228) 3.4 MEQ/L [id number] 00:00:00 Test Item Value Reference Range Interpretation Comments POTASSIUM (test code = 2228) 3.4 MEQ/L [id number] 00:00:00 Test Item Value Reference Range Interpretation Comments POTASSIUM (test code = 2228) 3.4 MEQ/L [id number] 00:00:00 Test Item Value Reference Range Interpretation Comments POTASSIUM (test code = 2228) 3.4 MEQ/L [id number] 00:00:00 Test Item Value Reference Range Interpretation Comments POTASSIUM (test code = 2228) 3.4 MEQ/L [id number] 00:00:00 Test Item Value Reference Range Interpretation Comments POTASSIUM (test code = 2228) 3.4 MEQ/L [id number] 00:00:00 Test Item Value Reference Range Interpretation Comments POTASSIUM (test code = 2228) 3.4 MEQ/L HEMOGLOBIN [id number] 06:16:49 Test Item Value Reference Range Interpretation Comments HEMOGLOBIN A1c (test 7.5 % 4.2-5.6 H [employer] AN DIABETES code = 78868) ASSOCIATION IDELINES FOR HGB A1C: PREDIABETES/INC REASED [...] INDICATED, ALL TESTING PER FORMED ATCLINICAL PATH [facility] [address] [facility], [place] [address] LABORATORY DIRE CTOR: SKYLAR HOFF M.D. CLIA NUMBER [id number] [place]. [id number] COMPREHENSIVE METABOLIC [id number] 05:40:53 Test Item Value Reference Range Interpretation Comments GLUCOSE (test code = 110 MG/DL 70-99 H 2216) BUN (test code = 6 MG/DL -20 2207) CREATININE (test 0.66 MG/DL 0.60-1.30 code = 221) eGFR (2020 CKD-EPI) 101 >60 (test code = 30994) ML/MIN/1.73 CALC BUN/CREAT (test 9 RATIO 6-28 code = 223) SODIUM (test code = 143 MEQ/L 226-208 0078) POTASSIUM (test code 3.2 MEQ/L 3.5-5.4 L = 2227) CHLORIDE (test code 103 MEQ/L 95-107 = 2214) CARBON DIOXIDE (test 28 MEQ/L 19-31 code = 220) CALCIUM (test code = 8.5 MG/DL 8.5-10.5 2208) PROTEIN, TOTAL (test 6.7 G/DL 6.1-8.3 code = 2228) ALBUMIN (test code = 3.8 G/DL 3.5-5.2 2200) CALC GLOBULIN (test 2.9 G/DL 1.9-3.7 code = 2239) CALC A/G RATIO (test 1.3 RATIO 1.0-2.6 code = 2233) BILIRUBIN, TOTAL 0.4 MG/DL See_Comment [Automated message] (test code = 220) The syste m which generated this result transmit magda reference range : <=1.2. The refe rence range was not u sed to interpret th is result as normal/abnormal . ALKALINE PHOSPHATASE 115 U/L 40-136 (test code = 220) AST (test code = 12 U/L 9-40 2217) ALT (test code = 13 U/L 5-40 2218) LIPID [id number] 05:40:53 Test Item Value Reference Range Interpretation [...] MOREINFORMATION , SEE CLIENT ANNOUNCE MENT AT [email or web address] [email or web address] RATIO LDL/HDL 1.31 RATIO <3.22 (test code = 2238) COMPREHENSIVE METABOLIC [id number] 00:00:00 Test Item Value Reference Range Interpretation Comments GLUCOSE (test code = 2217) 110 MG/DL BUN (test code = 2208) 6 MG/DL CREATININE (test code = 2214) 0.66 MG/DL eGFR (2020 CKD-EPI) (test 101 ML/MIN/1.73 code = 69049) CALC BUN/CREAT (test code = 9 RATIO [...] code = 2219) 13 U/L COMPREHENSIVE METABOLIC [id number] 00:00:00 Test Item Value Reference Range Interpretation Comments GLUCOSE (test code = 2217) 110 MG/DL BUN (test code = 2208) 6 MG/DL CREATININE (test code = 2214) 0.66 MG/DL eGFR (2020 CKD-EPI) (test 101 ML/MIN/1.73 code = 37823) CALC BUN/CREAT (test code = 9 RATIO 223) SODIUM (test code = 2231) 143 MEQ/L [...] (test code = 2219) 13 U/L LIPID [id number] 00:00:00 Test Item Value Reference Range Interpretation Comments CHOLESTEROL (test code = 2210) 107 MG/DL TRIGLYCERIDES (test code = 2232) 162 MG/DL HDL CHOLESTEROL (test code = 2220) 36 MG/DL CALC LDL CHOL (test code = 2237) 47 MG/DL RISK RATIO LDL/HDL (test code = 1.31 RATIO 2238) LIPID [id number] 00:00:00 Test Item Value Reference Range Interpretation Comments CHOLESTEROL (test code = 2210) 107 MG/DL TRIGLYCERIDES (test code = 2232) 162 MG/DL HDL CHOLESTEROL (test code = 2220) 36 MG/DL CALC LDL CHOL (test code = 2237) 47 MG/DL RISK RATIO LDL/HDL (test code = 1.31 RATIO 2238) HEMOGLOBIN [id number] 00:00:00 Test Item Value Reference Range Interpretation Comments HEMOGLOBIN A1c (test code = 76523) 7.5 % HEMOGLOBIN [id number] 00:00:00 Test Item Value Reference Range Interpretation Comments HEMOGLOBIN A1c (test code = 12918) 7.5 % HEMOGLOBIN [id number] 00:00:00 Test Item Value Reference Range Interpretation Comments HEMOGLOBIN A1c (test code = 39768) 7.5 % COMPREHENSIVE METABOLIC [id number] 00:00:00 Test Item Value Reference Range Interpretation Comments GLUCOSE (test code = 2217) 110 MG/DL BUN (test code = 2208) 6 MG/DL CREATININE (test code = 2214) 0.66 MG/DL eGFR (2020 CKD-EPI) (test 101 ML/MIN/1.73 code = 41613) CALC BUN/CREAT (test code = 9 RATIO [...] BILIRUBIN, TOTAL (test code = 0.4 MG/DL 220) ALKALINE PHOSPHATASE (test 115 U/L code = 2204) AST (test code = 2218) 12 U/L ALT (test code = 2219) 13 U/L COMPREHENSIVE METABOLIC [id number] 00:00:00 Test Item Value Reference Range Interpretation Comments GLUCOSE (test code = 2217) 110 MG/DL BUN (test code = 2208) 6 MG/DL CREATININE (test code = 2214) 0.66 MG/DL eGFR (2020 CKD-EPI) (test 101 ML/MIN/1.73 code = 08811) CALC BUN/CREAT (test code = 9 RATIO [...] BILIRUBIN, TOTAL (test code = 0.4 MG/DL 7) ALKALINE PHOSPHATASE (test 115 U/L code = 2204) AST (test code = 2218) 12 U/L ALT (test code = 2219) 13 U/L LIPID [id number] 00:00:00 Test Item Value Reference Range Interpretation Comments CHOLESTEROL (test code = 2210) 107 MG/DL TRIGLYCERIDES (test code = 2232) 162 MG/DL HDL CHOLESTEROL (test code = 2220) 36 MG/DL CALC LDL CHOL (test code = 2237) 47 MG/DL RISK RATIO LDL/HDL (test code = 1.31 RATIO 2238) LIPID [id number] 00:00:00 Test Item Value Reference Range Interpretation Comments CHOLESTEROL (test code = 2210) 107 MG/DL TRIGLYCERIDES (test code = 2232) 162 MG/DL HDL CHOLESTEROL (test code = 2220) 36 MG/DL CALC LDL CHOL (test code = 2237) 47 MG/DL RISK RATIO LDL/HDL (test code = 1.31 RATIO 2238) HEMOGLOBIN [id number] 00:00:00 Test Item Value Reference Range Interpretation Comments HEMOGLOBIN A1c (test code = 93713) 7.5 % HEMOGLOBIN [id number] 00:00:00 Test Item Value Reference Range Interpretation Comments HEMOGLOBIN A1c (test code = 51973) 7.5 % HEMOGLOBIN [id number] 00:00:00 Test Item Value Reference Range Interpretation Comments HEMOGLOBIN A1c (test code = 31995) 7.5 % COMPREHENSIVE METABOLIC [id number] 00:00:00 Test Item Value Reference Range Interpretation Comments GLUCOSE (test code = 2217) 110 MG/DL BUN (test code = 2208) 6 MG/DL CREATININE (test code = 2214) 0.66 MG/DL eGFR (2020 CKD-EPI) (test 101 ML/MIN/1.73 code = 01537) CALC BUN/CREAT (test code = 9 RATIO [...] code = 2219) 13 U/L COMPREHENSIVE METABOLIC [id number] 00:00:00 Test Item Value Reference Range Interpretation Comments GLUCOSE (test code = 2217) 110 MG/DL BUN (test code = 2208) 6 MG/DL CREATININE (test code = 2214) 0.66 MG/DL eGFR (2020 CKD-EPI) (test 101 ML/MIN/1.73 code = 70801) CALC BUN/CREAT (test code = 9 RATIO [...] (test code = 2219) 13 U/L LIPID [id number] 00:00:00 Test Item Value Reference Range Interpretation Comments CHOLESTEROL (test code = 2210) 107 MG/DL TRIGLYCERIDES (test code = 2232) 162 MG/DL HDL CHOLESTEROL (test code = 2220) 36 MG/DL CALC LDL CHOL (test code = 2237) 47 MG/DL RISK RATIO LDL/HDL (test code = 1.31 RATIO 2238) LIPID [id number] 00:00:00 Test Item Value Reference Range Interpretation Comments CHOLESTEROL (test code = 2210) 107 MG/DL TRIGLYCERIDES (test code = 2232) 162 MG/DL HDL CHOLESTEROL (test code = 2220) 36 MG/DL CALC LDL CHOL (test code = 2237) 47 MG/DL RISK RATIO LDL/HDL (test code = 1.31 RATIO 2238) HEMOGLOBIN [id number] 00:00:00 Test Item Value Reference Range Interpretation Comments HEMOGLOBIN A1c (test code = 53426) 7.5 % HEMOGLOBIN [id number] 00:00:00 Test Item Value Reference Range Interpretation Comments HEMOGLOBIN A1c (test code = 07291) 7.5 % HEMOGLOBIN [id number] 00:00:00 Test Item Value Reference Range Interpretation Comments HEMOGLOBIN A1c (test code = 81230) 7.5 % COMPREHENSIVE METABOLIC [id number] 00:00:00 Test Item Value Reference Range Interpretation Comments GLUCOSE (test code = 2217) 110 MG/DL BUN (test code = 2208) 6 MG/DL CREATININE (test code = 2214) 0.66 MG/DL eGFR (2020 CKD-EPI) (test 101 ML/MIN/1.73 code = 49258) CALC BUN/CREAT (test code = 9 RATIO [...] code = 2219) 13 U/L COMPREHENSIVE METABOLIC [id number] 00:00:00 Test Item Value Reference Range Interpretation Comments GLUCOSE (test code = 2217) 110 MG/DL BUN (test code = 2208) 6 MG/DL CREATININE (test code = 2214) 0.66 MG/DL eGFR (2020 CKD-EPI) (test 101 ML/MIN/1.73 code = 94082) CALC BUN/CREAT (test code = 9 RATIO 2235) SODIUM (test code = 2231) 143 MEQ/L POTASSIUM (test code = 2228) 3.2 MEQ/L CHLORIDE (test code = 2215) 103 MEQ/L CARBON DIOXIDE (test code = 28 MEQ/L 2206) CALCIUM (test code = 2209) 8.5 MG/DL PROTEIN, TOTAL (test code = 6.7 G/DL 2229) ALBUMIN (test code = 2201) 3.8 G/DL CALC GLOBULIN (test code = 2.9 G/DL 2240) CALC A/G RATIO (test code = 1.3 RATIO 2234) BILIRUBIN, TOTAL (test code = 0.4 MG/DL 2206) ALKALINE PHOSPHATASE (test 115 U/L code = 2204) AST (test code = 2218) 12 U/L ALT (test code = 2219) 13 U/L LIPID [id number] 00:00:00 Test Item Value Reference Range Interpretation Comments CHOLESTEROL (test code = 2210) 107 MG/DL TRIGLYCERIDES (test code = 2232) 162 MG/DL HDL CHOLESTEROL (test code = 2220) 36 MG/DL CALC LDL CHOL (test code = 2237) 47 MG/DL RISK RATIO LDL/HDL (test code = 1.31 RATIO 2238) LIPID [id number] 00:00:00 Test Item Value Reference Range Interpretation Comments CHOLESTEROL (test code = 2210) 107 MG/DL TRIGLYCERIDES (test code = 2232) 162 MG/DL HDL CHOLESTEROL (test code = 2220) 36 MG/DL CALC LDL CHOL (test code = 2237) 47 MG/DL RISK RATIO LDL/HDL (test code = 1.31 RATIO 2238) HEMOGLOBIN [id number] 00:00:00 Test Item Value Reference Range Interpretation Comments HEMOGLOBIN A1c (test code = 42183) 7.5 % HEMOGLOBIN [id number] 00:00:00 Test Item Value Reference Range Interpretation Comments HEMOGLOBIN A1c (test code = 19587) 7.5 % HEMOGLOBIN [id number] 00:00:00 Test Item Value Reference Range Interpretation Comments HEMOGLOBIN A1c (test code = 36566) 7.5 % COMPREHENSIVE METABOLIC [id number] 00:00:00 Test Item Value Reference Range Interpretation Comments GLUCOSE (test code = 2217) 110 MG/DL BUN (test code = 2208) 6 MG/DL CREATININE (test code = 2214) 0.66 MG/DL eGFR (2020 CKD-EPI) (test 101 ML/MIN/1.73 code = 72407) CALC BUN/CREAT (test code = 9 RATIO 5) SODIUM (test code = 2231) 143 MEQ/L POTASSIUM (test code = 2228) 3.2 MEQ/L CHLORIDE (test code = 2215) 103 MEQ/L CARBON DIOXIDE (test code = 28 MEQ/L 2205) CALCIUM (test code = 2209) 8.5 MG/DL PROTEIN, TOTAL (test code = 6.7 G/DL 2229) ALBUMIN (test code = 2201) 3.8 G/DL CALC GLOBULIN (test code = 2.9 G/DL 2240) CALC A/G RATIO (test code = 1.3 RATIO 2234) BILIRUBIN, TOTAL (test code = 0.4 MG/DL 2206) ALKALINE PHOSPHATASE (test 115 U/L code = 2204) AST (test code = 2218) 12 U/L ALT (test code = 2219) 13 U/L COMPREHENSIVE METABOLIC [id number] 00:00:00 Test Item Value Reference Range Interpretation Comments GLUCOSE (test code = 2217) 110 MG/DL BUN (test code = 2208) 6 MG/DL CREATININE (test code = 2214) 0.66 MG/DL eGFR (2020 CKD-EPI) (test 101 ML/MIN/1.73 code = 22487) CALC BUN/CREAT (test code = 9 RATIO [...] BILIRUBIN, TOTAL (test code = 0.4 MG/DL 7) ALKALINE PHOSPHATASE (test 115 U/L code = 2204) AST (test code = 2218) 12 U/L ALT (test code = 2219) 13 U/L LIPID [id number] 00:00:00 Test Item Value Reference Range Interpretation Comments CHOLESTEROL (test code = 2210) 107 MG/DL TRIGLYCERIDES (test code = 2232) 162 MG/DL HDL CHOLESTEROL (test code = 2220) 36 MG/DL CALC LDL CHOL (test code = 2237) 47 MG/DL RISK RATIO LDL/HDL (test code = 1.31 RATIO 2238) LIPID [id number] 00:00:00 Test Item Value Reference Range Interpretation Comments CHOLESTEROL (test code = 2210) 107 MG/DL TRIGLYCERIDES (test code = 2232) 162 MG/DL HDL CHOLESTEROL (test code = 2220) 36 MG/DL CALC LDL CHOL (test code = 2237) 47 MG/DL RISK RATIO LDL/HDL (test code = 1.31 RATIO 2238) HEMOGLOBIN [id number] 00:00:00 Test Item Value Reference Range Interpretation Comments HEMOGLOBIN A1c (test code = 87872) 7.5 % HEMOGLOBIN [id number] 00:00:00 Test Item Value Reference Range Interpretation Comments HEMOGLOBIN A1c (test code = 19984) 7.5 % HEMOGLOBIN [id number] 00:00:00 Test Item Value Reference Range Interpretation Comments HEMOGLOBIN A1c (test code = 13379) 7.5 % ALBUMIN/CREATININE RATIO, URINE, [id number] 06:54:51 Test Item Value Reference Range Interpretation Comments CREATININE, URINE, 90.9 MG/DL NOT ESTAB RANDOM (test code = 2072) ALBUMIN, URINE, 1.8 MG/DL NOT ESTAB RANDOM (test code = 48819) CALC 20 MG/G <30 Note: Albumin/ Creatinine ALBUMIN/CREAT, RND ratio ref erence interval (test code = reflects [place] NK[place] [address]244) guidelines. UNL ESS OTHERWISE INDIC ATED, ALL TESTING PERFORM ED [facility], [facility]. [address] [place] [address] LABORATORY DIRE CTOR: Diaz MO. CLIA NUMBER [id number] CAP ACCREDITATION N O. [id number] LIPID [id number] 04:28:20 Test Item Value Reference Range Interpretation [...] MOREINFORMATION , SEE CLIENT ANNOUNCE MENT AT [email or web address] RISK RATIO LDL/HDL 1.61 RATIO <3.22 (test code = 2238) COMPREHENSIVE METABOLIC [id number] 04:28:20 Test Item Value Reference Range Interpretation Comments GLUCOSE (test code = 210 MG/DL 70-99 H 2216) BUN (test code = 7 MG/DL 6-20 2207) CREATININE (test 0.65 MG/DL 0.60-1.30 code = 2214) eGFR (2020 CKD-EPI) 101 >60 (test code = 58100) ML/MIN/1.73 CALC BUN/CREAT (test 11 RATIO -28 code = 2235) SODIUM (test code = 139 MEQ/L 800-465 4349) POTASSIUM (test code 3.6 MEQ/L 3.5-5.4 = [...] 152 U/L 40-136 H (test code = 2204) AST (test code = 11 U/L 9-40 2217) ALT (test code = 12 U/L 5-40 2218) HEMOGLOBIN [id number] 02:34:28 Test Item Value Reference Range Interpretation Comments HEMOGLOBIN A1c (test 8.4 % 4.2-5.6 H [employer]ES code = 15391) ASSOCIATION IDELINES FOR HGB A1C: PREDIABETES/INC REASED [...] ATE TESTING OR LABORATORY C ONSULTATION. HEMOGLOBIN [id number] 00:00:00 Test Item Value Reference Range Interpretation Comments HEMOGLOBIN A1c (test code = 40054) 8.4 % LIPID [id number] 00:00:00 Test Item Value Reference Range Interpretation Comments CHOLESTEROL (test code = 2210) 124 MG/DL TRIGLYCERIDES (test code = 2232) 176 MG/DL HDL CHOLESTEROL (test code = 2220) 38 MG/DL CALC LDL CHOL (test code = 2237) 61 MG/DL RISK RATIO LDL/HDL (test code = 1.61 RATIO 2238) LIPID [id number] 00:00:00 Test Item Value Reference Range Interpretation Comments CHOLESTEROL (test code = 2210) 124 MG/DL TRIGLYCERIDES (test code = 2232) 176 MG/DL HDL CHOLESTEROL (test code = 2220) 38 MG/DL CALC LDL CHOL (test code = 2237) 61 MG/DL RISK RATIO LDL/HDL (test code = 1.61 RATIO 2238) COMPREHENSIVE METABOLIC [id number] 00:00:00 Test Item Value Reference Range Interpretation Comments GLUCOSE (test code = 2217) 210 MG/DL BUN (test code = 2208) 7 MG/DL CREATININE (test code = 2214) 0.65 MG/DL eGFR (2020 CKD-EPI) (test 101 ML/MIN/1.73 code = 57723) CALC BUN/CREAT (test code = 11 RATIO [...] code = 2219) 12 U/L COMPREHENSIVE METABOLIC [id number] 00:00:00 Test Item Value Reference Range Interpretation Comments GLUCOSE (test code = 2217) 210 MG/DL BUN (test code = 2208) 7 MG/DL CREATININE (test code = 2214) 0.65 MG/DL eGFR (2020 CKD-EPI) (test 101 ML/MIN/1.73 code = 49527) CALC BUN/CREAT (test code = 11 RATIO [...] = 2219) 12 U/L MICROALBUMIN/CREATININE, RANDOM AND [id number] 00:00:00 Test Item Value Reference Range Interpretation Comments CREATININE, URINE, RANDOM (test 90.9 MG/DL code = 2072) ALBUMIN, URINE, RANDOM (test code 1.8 MG/DL = 54261) CALC ALBUMIN/CREAT, RND (test code 20 MG/G = 91466) MICROALBUMIN/CREATININE, RANDOM AND [id number] 00:00:00 Test Item Value Reference Range Interpretation Comments CREATININE, URINE, RANDOM (test 90.9 MG/DL code = 2072) ALBUMIN, URINE, RANDOM (test code 1.8 MG/DL = 84192) CALC ALBUMIN/CREAT, RND (test code 20 MG/G = 30987) HEMOGLOBIN [id number] 00:00:00 Test Item Value Reference Range Interpretation Comments HEMOGLOBIN A1c (test code = 68833) 8.4 % HEMOGLOBIN [id number] 00:00:00 Test Item Value Reference Range Interpretation Comments HEMOGLOBIN A1c (test code = 70297) 8.4 % HEMOGLOBIN [id number] 00:00:00 Test Item Value Reference Range Interpretation Comments HEMOGLOBIN A1c (test code = 20752) 8.4 % LIPID [id number] 00:00:00 Test Item Value Reference Range Interpretation Comments CHOLESTEROL (test code = 2210) 124 MG/DL TRIGLYCERIDES (test code = 2232) 176 MG/DL HDL CHOLESTEROL (test code = 2220) 38 MG/DL CALC LDL CHOL (test code = 2237) 61 MG/DL RISK RATIO LDL/HDL (test code = 1.61 RATIO 2238) LIPID [id number] 00:00:00 Test Item Value Reference Range Interpretation Comments CHOLESTEROL (test code = 2210) 124 MG/DL TRIGLYCERIDES (test code = 2232) 176 MG/DL HDL CHOLESTEROL (test code = 2220) 38 MG/DL CALC LDL CHOL (test code = 2237) 61 MG/DL RISK RATIO LDL/HDL (test code = 1.61 RATIO 2238) COMPREHENSIVE METABOLIC [id number] 00:00:00 Test Item Value Reference Range Interpretation Comments GLUCOSE (test code = 2217) 210 MG/DL BUN (test code = 2208) 7 MG/DL CREATININE (test code = 2214) 0.65 MG/DL eGFR (2020 CKD-EPI) (test 101 ML/MIN/1.73 code = 68829) CALC BUN/CREAT (test code = 11 RATIO [...] code = 2219) 12 U/L COMPREHENSIVE METABOLIC [id number] 00:00:00 Test Item Value Reference Range Interpretation Comments GLUCOSE (test code = 2217) 210 MG/DL BUN (test code = 2208) 7 MG/DL CREATININE (test code = 2214) 0.65 MG/DL eGFR (2020 CKD-EPI) (test 101 ML/MIN/1.73 code = 18522) CALC BUN/CREAT (test code = 11 RATIO [...] = 2219) 12 U/L MICROALBUMIN/CREATININE, RANDOM AND [id number] 00:00:00 Test Item Value Reference Range Interpretation Comments CREATININE, URINE, RANDOM (test 90.9 MG/DL code = 2072) ALBUMIN, URINE, RANDOM (test code 1.8 MG/DL = 65471) CALC ALBUMIN/CREAT, RND (test code 20 MG/G = 12952) MICROALBUMIN/CREATININE, RANDOM AND [id number] 00:00:00 Test Item Value Reference Range Interpretation Comments CREATININE, URINE, RANDOM (test 90.9 MG/DL code = 2072) ALBUMIN, URINE, RANDOM (test code 1.8 MG/DL = 45237) CALC ALBUMIN/CREAT, RND (test code 20 MG/G = 38158) HEMOGLOBIN [id number] 00:00:00 Test Item Value Reference Range Interpretation Comments HEMOGLOBIN A1c (test code = 96974) 8.4 % HEMOGLOBIN [id number] 00:00:00 Test Item Value Reference Range Interpretation Comments HEMOGLOBIN A1c (test code = 29931) 8.4 % HEMOGLOBIN [id number] 00:00:00 Test Item Value Reference Range Interpretation Comments HEMOGLOBIN A1c (test code = 71782) 8.4 % LIPID [id number] 00:00:00 Test Item Value Reference Range Interpretation Comments CHOLESTEROL (test code = 2210) 124 MG/DL TRIGLYCERIDES (test code = 2232) 176 MG/DL HDL CHOLESTEROL (test code = 2220) 38 MG/DL CALC LDL CHOL (test code = 2237) 61 MG/DL RISK RATIO LDL/HDL (test code = 1.61 RATIO 2238) LIPID [id number] 00:00:00 Test Item Value Reference Range Interpretation Comments CHOLESTEROL (test code = 2210) 124 MG/DL TRIGLYCERIDES (test code = 2232) 176 MG/DL HDL CHOLESTEROL (test code = 2220) 38 MG/DL CALC LDL CHOL (test code = 2237) 61 MG/DL RISK RATIO LDL/HDL (test code = 1.61 RATIO 2238) COMPREHENSIVE METABOLIC [id number] 00:00:00 Test Item Value Reference Range Interpretation Comments GLUCOSE (test code = 2217) 210 MG/DL BUN (test code = 2208) 7 MG/DL CREATININE (test code = 2214) 0.65 MG/DL eGFR (2020 CKD-EPI) (test 101 ML/MIN/1.73 code = 69964) CALC BUN/CREAT (test code = 11 RATIO [...] code = 2219) 12 U/L COMPREHENSIVE METABOLIC [id number] 00:00:00 Test Item Value Reference Range Interpretation Comments GLUCOSE (test code = 2217) 210 MG/DL BUN (test code = 2208) 7 MG/DL CREATININE (test code = 2214) 0.65 MG/DL eGFR (2020 CKD-EPI) (test 101 ML/MIN/1.73 code = 41233) CALC BUN/CREAT (test code = 11 RATIO [...] BILIRUBIN, TOTAL (test code = 0.4 MG/DL 220) ALKALINE PHOSPHATASE (test 152 U/L code = 2204) AST (test code = 2218) 11 U/L ALT (test code = 2219) 12 U/L MICROALBUMIN/CREATININE, RANDOM AND [id number] 00:00:00 Test Item Value Reference Range Interpretation Comments CREATININE, URINE, RANDOM (test 90.9 MG/DL code = 2072) ALBUMIN, URINE, RANDOM (test code 1.8 MG/DL = 79097) CALC ALBUMIN/CREAT, RND (test code 20 MG/G = 80170) MICROALBUMIN/CREATININE, RANDOM AND [id number] 00:00:00 Test Item Value Reference Range Interpretation Comments CREATININE, URINE, RANDOM (test 90.9 MG/DL code = 2072) ALBUMIN, URINE, RANDOM (test code 1.8 MG/DL = 63950) CALC ALBUMIN/CREAT, RND (test code 20 MG/G = 51496) HEMOGLOBIN [id number] 00:00:00 Test Item Value Reference Range Interpretation Comments HEMOGLOBIN A1c (test code = 96716) 8.4 % HEMOGLOBIN [id number] 00:00:00 Test Item Value Reference Range Interpretation Comments HEMOGLOBIN A1c (test code = 35641) 8.4 % LIPID [id number] 00:00:00 Test Item Value Reference Range Interpretation Comments CHOLESTEROL (test code = 2210) 124 MG/DL TRIGLYCERIDES (test code = 2232) 176 MG/DL HDL CHOLESTEROL (test code = 2220) 38 MG/DL CALC LDL CHOL (test code = 2237) 61 MG/DL RISK RATIO LDL/HDL (test code = 1.61 RATIO 2238) HEMOGLOBIN [id number] 00:00:00 Test Item Value Reference Range Interpretation Comments HEMOGLOBIN A1c (test code = 85265) 8.4 % HEMOGLOBIN [id number] 00:00:00 Test Item Value Reference Range Interpretation Comments HEMOGLOBIN A1c (test code = 27167) 8.4 % HEMOGLOBIN [id number] 00:00:00 Test Item Value Reference Range Interpretation Comments HEMOGLOBIN A1c (test code = 52298) 8.4 % LIPID [id number] 00:00:00 Test Item Value Reference Range Interpretation Comments CHOLESTEROL (test code = 2210) 124 MG/DL TRIGLYCERIDES (test code = 2232) 176 MG/DL HDL CHOLESTEROL (test code = 2220) 38 MG/DL CALC LDL CHOL (test code = 2237) 61 MG/DL RISK RATIO LDL/HDL (test code = 1.61 RATIO 2238) LIPID [id number] 00:00:00 Test Item Value Reference Range Interpretation Comments CHOLESTEROL (test code = 2210) 124 MG/DL TRIGLYCERIDES (test code = 2232) 176 MG/DL HDL CHOLESTEROL (test code = 2220) 38 MG/DL CALC LDL CHOL (test code = 2237) 61 MG/DL RISK RATIO LDL/HDL (test code = 1.61 RATIO 2238) COMPREHENSIVE METABOLIC [id number] 00:00:00 Test Item Value Reference Range Interpretation Comments GLUCOSE (test code = 2217) 210 MG/DL BUN (test code = 2208) 7 MG/DL CREATININE (test code = 2214) 0.65 MG/DL eGFR (2020 CKD-EPI) (test 101 ML/MIN/1.73 code = 50678) CALC BUN/CREAT (test code = 11 RATIO [...] code = 2219) 12 U/L COMPREHENSIVE METABOLIC [id number] 00:00:00 Test Item Value Reference Range Interpretation Comments GLUCOSE (test code = 2217) 210 MG/DL BUN (test code = 2208) 7 MG/DL CREATININE (test code = 2214) 0.65 MG/DL eGFR (2020 CKD-EPI) (test 101 ML/MIN/1.73 code = 61520) CALC BUN/CREAT (test code = 11 RATIO [...] = 2219) 12 U/L MICROALBUMIN/CREATININE, RANDOM AND [id number] 00:00:00 Test Item Value Reference Range Interpretation Comments CREATININE, URINE, RANDOM (test 90.9 MG/DL code = 2072) ALBUMIN, URINE, RANDOM (test code 1.8 MG/DL = 08420) CALC ALBUMIN/CREAT, RND (test code 20 MG/G = 03263) COMPREHENSIVE METABOLIC [id number] 00:00:00 Test Item Value Reference Range Interpretation Comments GLUCOSE (test code = 2217) 210 MG/DL BUN (test code = 2208) 7 MG/DL CREATININE (test code = 2214) 0.65 MG/DL eGFR (2020 CKD-EPI) (test 101 ML/MIN/1.73 code = 38637) CALC BUN/CREAT (test code = 11 RATIO 2235) SODIUM (test code = 2231) 139 MEQ/L POTASSIUM (test code = 2228) 3.6 MEQ/L CHLORIDE (test code = 2215) 102 MEQ/L CARBON DIOXIDE (test code = 24 MEQ/L 220) CALCIUM (test code = 2209) 9.3 MG/DL PROTEIN, TOTAL (test code = 7.3 G/DL 2229) ALBUMIN (test code = 2201) 4.0 G/DL CALC GLOBULIN (test code = 3.3 G/DL 2240) CALC A/G RATIO (test code = 1.2 RATIO 2234) BILIRUBIN, TOTAL (test code = 0.4 MG/DL 220) ALKALINE PHOSPHATASE (test 152 U/L code = 2204) AST (test code = 2218) 11 U/L ALT (test code = 2219) 12 U/L MICROALBUMIN/CREATININE, RANDOM AND [id number] 00:00:00 Test Item Value Reference Range Interpretation Comments CREATININE, URINE, RANDOM (test 90.9 MG/DL code = 2072) ALBUMIN, URINE, RANDOM (test code 1.8 MG/DL = 52561) CALC ALBUMIN/CREAT, RND (test code 20 MG/G = 21292) MICROALBUMIN/CREATININE, RANDOM AND [id number] 00:00:00 Test Item Value Reference Range Interpretation Comments CREATININE, URINE, RANDOM (test 90.9 MG/DL code = 2072) ALBUMIN, URINE, RANDOM (test code 1.8 MG/DL = 59785) CALC ALBUMIN/CREAT, RND (test code 20 MG/G = 99450) HEMOGLOBIN [id number] 00:00:00 Test Item Value Reference Range Interpretation Comments HEMOGLOBIN A1c (test code = 59220) 8.4 % HEMOGLOBIN [id number] 00:00:00 Test Item Value Reference Range Interpretation Comments HEMOGLOBIN A1c (test code = 52800) 8.4 % HEMOGLOBIN [id number] 00:00:00 Test Item Value Reference Range Interpretation Comments HEMOGLOBIN A1c (test code = 36899) 8.4 % LIPID [id number] 00:00:00 Test Item Value Reference Range Interpretation Comments CHOLESTEROL (test code = 2210) 124 MG/DL TRIGLYCERIDES (test code = 2232) 176 MG/DL HDL CHOLESTEROL (test code = 2220) 38 MG/DL CALC LDL CHOL (test code = 2237) 61 MG/DL RISK RATIO LDL/HDL (test code = 1.61 RATIO 2238) LIPID [id number] 00:00:00 Test Item Value Reference Range Interpretation Comments CHOLESTEROL (test code = 2210) 124 MG/DL TRIGLYCERIDES (test code = 2232) 176 MG/DL HDL CHOLESTEROL (test code = 2220) 38 MG/DL CALC LDL CHOL (test code = 2237) 61 MG/DL RISK RATIO LDL/HDL (test code = 1.61 RATIO 2238) COMPREHENSIVE METABOLIC [id number] 00:00:00 Test Item Value Reference Range Interpretation Comments GLUCOSE (test code = 2217) 210 MG/DL BUN (test code = 2208) 7 MG/DL CREATININE (test code = 2214) 0.65 MG/DL eGFR (2020 CKD-EPI) (test 101 ML/MIN/1.73 code = 07307) CALC BUN/CREAT (test code = 11 RATIO [...] code = 2219) 12 U/L COMPREHENSIVE METABOLIC [id number] 00:00:00 Test Item Value Reference Range Interpretation Comments GLUCOSE (test code = 2217) 210 MG/DL BUN (test code = 2208) 7 MG/DL CREATININE (test code = 2214) 0.65 MG/DL eGFR (2020 CKD-EPI) (test 101 ML/MIN/1.73 code = 99116) CALC BUN/CREAT (test code = 11 RATIO [...] CALC GLOBULIN (test code = 3.3 G/DL 224) CALC A/G RATIO (test code = 1.2 RATIO 2234) BILIRUBIN, TOTAL (test code = 0.4 MG/DL 2206) ALKALINE PHOSPHATASE (test 152 U/L code = 2204) AST (test code = 2218) 11 U/L ALT (test code = 2219) 12 U/L MICROALBUMIN/CREATININE, RANDOM AND [id number] 00:00:00 Test Item Value Reference Range Interpretation Comments CREATININE, URINE, RANDOM (test 90.9 MG/DL code = 2072) ALBUMIN, URINE, RANDOM (test code 1.8 MG/DL = 80429) CALC ALBUMIN/CREAT, RND (test code 20 MG/G = 71203) MICROALBUMIN/CREATININE, RANDOM AND [id number] 00:00:00 Test Item Value Reference Range Interpretation Comments CREATININE, URINE, RANDOM (test 90.9 MG/DL code = 2072) ALBUMIN, URINE, RANDOM (test code 1.8 MG/DL = 74286) CALC ALBUMIN/CREAT, RND (test code 20 MG/G = 24906) HEMOGLOBIN [id number] 00:00:00 Test Item Value Reference Range Interpretation Comments HEMOGLOBIN A1c (test code = 28407) 8.4 % HEMOGLOBIN [id number] 00:00:00 Test Item Value Reference Range Interpretation Comments HEMOGLOBIN A1c (test code = 29634) 8.4 % CBC W/AUTO [id number] 00:00:00 Test Item Value Reference Range Interpretation [...] (test code = 1015) 380 K/UL HEMOGLOBIN [id number] 00:00:00 Test Item Value Reference Range Interpretation Comments HEMOGLOBIN A1c (test code = 00676) 7.2 % HEMOGLOBIN [id number] 00:00:00 Test Item Value Reference Range Interpretation Comments HEMOGLOBIN A1c (test code = 89576) 7.2 % HEMOGLOBIN [id number] 00:00:00 Test Item Value Reference Range Interpretation Comments HEMOGLOBIN A1c (test code = 32184) 7.2 % LIPID [id number] 00:00:00 Test Item Value Reference Range Interpretation Comments CHOLESTEROL (test code = 2210) 109 MG/DL TRIGLYCERIDES (test code = 2232) 120 MG/DL HDL CHOLESTEROL (test code = 2220) 44 MG/DL CALC LDL CHOL (test code = 2237) 44 MG/DL RISK RATIO LDL/HDL (test code = 1.00 RATIO 2238) LIPID [id number] 00:00:00 Test Item Value Reference Range Interpretation Comments CHOLESTEROL (test code = 2210) 109 MG/DL TRIGLYCERIDES (test code = 2232) 120 MG/DL HDL CHOLESTEROL (test code = 2220) 44 MG/DL CALC LDL CHOL (test code = 2237) 44 MG/DL RISK RATIO LDL/HDL (test code = 1.00 RATIO 2238) COMPREHENSIVE METABOLIC [id number] 00:00:00 Test Item Value Reference Range Interpretation Comments GLUCOSE (test code = 2217) 155 MG/DL BUN (test code = 2208) 13 MG/DL CREATININE (test code = 2214) 0.74 MG/DL eGFR AMER. (test code 103 ML/MIN/1.73 = 92921) eGFR NON- AMER. (test 89 ML/MIN/1.73 code = 86080) CALC BUN/CREAT (test code = 18 RATIO [...] code = 2219) 19 U/L COMPREHENSIVE METABOLIC [id number] 00:00:00 Test Item Value Reference Range Interpretation Comments GLUCOSE (test code = 2217) 155 MG/DL BUN (test code = 2208) 13 MG/DL CREATININE (test code = 2214) 0.74 MG/DL eGFR AMER. (test code 103 ML/MIN/1.73 = 56504) eGFR NON- AMER. (test 89 ML/MIN/1.73 code = 19976) CALC BUN/CREAT (test code = 18 RATIO [...] A/G RATIO (test code = 1.4 RATIO 2233) BILIRUBIN, TOTAL (test code = 0.3 MG/DL 2206) ALKALINE PHOSPHATASE (test 126 U/L code = 2204) AST (test code = 2218) 17 U/L ALT (test code = 2219) 19 U/L [id number] 00:00:00 Test Item Value Reference Range Interpretation Comments TSH, THIRD GENERATION (test code 1.430 UIU/ML = 2821) [id number] 00:00:00 Test Item Value Reference Range Interpretation Comments TSH, THIRD GENERATION (test code 1.430 UIU/ML = 2821) [id number] 00:00:00 Test Item Value Reference Range Interpretation Comments TSH, THIRD GENERATION (test code 1.430 UIU/ML = 2821) CBC W/AUTO [id number] 00:00:00 Test Item Value Reference Range Interpretation [...] code = 1015) 380 K/UL CBC W/AUTO [id number] 00:00:00 Test Item Value Reference Range Interpretation [...] code = 1015) 380 K/UL CBC W/AUTO [id number] 00:00:00 Test Item Value Reference Range Interpretation [...] (test code = 1015) 380 K/UL HEMOGLOBIN [id number] 00:00:00 Test Item Value Reference Range Interpretation Comments HEMOGLOBIN A1c (test code = 18095) 7.2 % HEMOGLOBIN [id number] 00:00:00 Test Item Value Reference Range Interpretation Comments HEMOGLOBIN A1c (test code = 72804) 7.2 % HEMOGLOBIN [id number] 00:00:00 Test Item Value Reference Range Interpretation Comments HEMOGLOBIN A1c (test code = 82418) 7.2 % LIPID [id number] 00:00:00 Test Item Value Reference Range Interpretation Comments CHOLESTEROL (test code = 2210) 109 MG/DL TRIGLYCERIDES (test code = 2232) 120 MG/DL HDL CHOLESTEROL (test code = 2220) 44 MG/DL CALC LDL CHOL (test code = 2237) 44 MG/DL RISK RATIO LDL/HDL (test code = 1.00 RATIO 2238) LIPID [id number] 00:00:00 Test Item Value Reference Range Interpretation Comments CHOLESTEROL (test code = 2210) 109 MG/DL TRIGLYCERIDES (test code = 2232) 120 MG/DL HDL CHOLESTEROL (test code = 2220) 44 MG/DL CALC LDL CHOL (test code = 2237) 44 MG/DL RISK RATIO LDL/HDL (test code = 1.00 RATIO 2238) COMPREHENSIVE METABOLIC [id number] 00:00:00 Test Item Value Reference Range Interpretation Comments GLUCOSE (test code = 2217) 155 MG/DL BUN (test code = 2208) 13 MG/DL CREATININE (test code = 2214) 0.74 MG/DL eGFR AMER. (test code 103 ML/MIN/1.73 = 43688) eGFR NON- AMER. (test 89 ML/MIN/1.73 code = 37719) CALC BUN/CREAT (test code = 18 RATIO [...] code = 2219) 19 U/L COMPREHENSIVE METABOLIC [id number] 00:00:00 Test Item Value Reference Range Interpretation Comments GLUCOSE (test code = 2217) 155 MG/DL BUN (test code = 2208) 13 MG/DL CREATININE (test code = 2214) 0.74 MG/DL eGFR AMER. (test code 103 ML/MIN/1.73 = 30599) eGFR NON- AMER. (test 89 ML/MIN/1.73 code = 01052) CALC BUN/CREAT (test code = 18 RATIO [...] A/G RATIO (test code = 1.4 RATIO 2233) BILIRUBIN, TOTAL (test code = 0.3 MG/DL 2206) ALKALINE PHOSPHATASE (test 126 U/L code = 2204) AST (test code = 2218) 17 U/L ALT (test code = 2219) 19 U/L [id number] 00:00:00 Test Item Value Reference Range Interpretation Comments TSH, THIRD GENERATION (test code 1.430 UIU/ML = 2821) [id number] 00:00:00 Test Item Value Reference Range Interpretation Comments TSH, THIRD GENERATION (test code 1.430 UIU/ML = 2821) [id number] 00:00:00 Test Item Value Reference Range Interpretation Comments TSH, THIRD GENERATION (test code 1.430 UIU/ML = 2821) CBC W/AUTO [id number] 00:00:00 Test Item Value Reference Range Interpretation [...] code = 1015) 380 K/UL CBC W/AUTO [id number] 00:00:00 Test Item Value Reference Range Interpretation [...] code = 1015) 380 K/UL CBC W/AUTO [id number] 00:00:00 Test Item Value Reference Range Interpretation [...] (test code = 1015) 380 K/UL HEMOGLOBIN [id number] 00:00:00 Test Item Value Reference Range Interpretation Comments HEMOGLOBIN A1c (test code = 00532) 7.2 % HEMOGLOBIN [id number] 00:00:00 Test Item Value Reference Range Interpretation Comments HEMOGLOBIN A1c (test code = 85473) 7.2 % HEMOGLOBIN [id number] 00:00:00 Test Item Value Reference Range Interpretation Comments HEMOGLOBIN A1c (test code = 01341) 7.2 % LIPID [id number] 00:00:00 Test Item Value Reference Range Interpretation Comments CHOLESTEROL (test code = 2210) 109 MG/DL TRIGLYCERIDES (test code = 2232) 120 MG/DL HDL CHOLESTEROL (test code = 2220) 44 MG/DL CALC LDL CHOL (test code = 2237) 44 MG/DL RISK RATIO LDL/HDL (test code = 1.00 RATIO 2238) LIPID [id number] 00:00:00 Test Item Value Reference Range Interpretation Comments CHOLESTEROL (test code = 2210) 109 MG/DL TRIGLYCERIDES (test code = 2232) 120 MG/DL HDL CHOLESTEROL (test code = 2220) 44 MG/DL CALC LDL CHOL (test code = 2237) 44 MG/DL RISK RATIO LDL/HDL (test code = 1.00 RATIO 2238) COMPREHENSIVE METABOLIC [id number] 00:00:00 Test Item Value Reference Range Interpretation Comments GLUCOSE (test code = 2217) 155 MG/DL BUN (test code = 2208) 13 MG/DL CREATININE (test code = 2214) 0.74 MG/DL eGFR AMER. (test code 103 ML/MIN/1.73 = 23933) eGFR NON- AMER. (test 89 ML/MIN/1.73 code = 39741) CALC BUN/CREAT (test code = 18 RATIO [...] code = 2219) 19 U/L COMPREHENSIVE METABOLIC [id number] 00:00:00 Test Item Value Reference Range Interpretation Comments GLUCOSE (test code = 2217) 155 MG/DL BUN (test code = 2208) 13 MG/DL CREATININE (test code = 2214) 0.74 MG/DL eGFR AMER. (test code 103 ML/MIN/1.73 = 10273) eGFR NON- AMER. (test 89 ML/MIN/1.73 code = 28853) CALC BUN/CREAT (test code = 18 RATIO [...] A/G RATIO (test code = 1.4 RATIO 2233) BILIRUBIN, TOTAL (test code = 0.3 MG/DL 2206) ALKALINE PHOSPHATASE (test 126 U/L code = 2204) AST (test code = 2218) 17 U/L ALT (test code = 2219) 19 U/L [id number] 00:00:00 Test Item Value Reference Range Interpretation Comments TSH, THIRD GENERATION (test code 1.430 UIU/ML = 2821) [id number] 00:00:00 Test Item Value Reference Range Interpretation Comments TSH, THIRD GENERATION (test code 1.430 UIU/ML = 2821) [id number] 00:00:00 Test Item Value Reference Range Interpretation Comments TSH, THIRD GENERATION (test code 1.430 UIU/ML = 2821) CBC W/AUTO [id number] 00:00:00 Test Item Value Reference Range Interpretation [...] code = 1015) 380 K/UL CBC W/AUTO [id number] 00:00:00 Test Item Value Reference Range Interpretation [...] (test code = 1015) 380 K/UL HEMOGLOBIN [id number] 00:00:00 Test Item Value Reference Range Interpretation Comments HEMOGLOBIN A1c (test code = 71892) 7.2 % CBC W/AUTO [id number] 00:00:00 Test Item Value Reference Range Interpretation [...] code = 1015) 380 K/UL CBC W/AUTO [id number] 00:00:00 Test Item Value Reference Range Interpretation [...] code = 1015) 380 K/UL CBC W/AUTO [id number] 00:00:00 Test Item Value Reference Range Interpretation [...] (test code = 1015) 380 K/UL HEMOGLOBIN [id number] 00:00:00 Test Item Value Reference Range Interpretation Comments HEMOGLOBIN A1c (test code = 11975) 7.2 % HEMOGLOBIN [id number] 00:00:00 Test Item Value Reference Range Interpretation Comments HEMOGLOBIN A1c (test code = 99604) 7.2 % HEMOGLOBIN [id number] 00:00:00 Test Item Value Reference Range Interpretation Comments HEMOGLOBIN A1c (test code = 80599) 7.2 % HEMOGLOBIN [id number] 00:00:00 Test Item Value Reference Range Interpretation Comments HEMOGLOBIN A1c (test code = 84858) 7.2 % LIPID [id number] 00:00:00 Test Item Value Reference Range Interpretation Comments CHOLESTEROL (test code = 2210) 109 MG/DL TRIGLYCERIDES (test code = 2232) 120 MG/DL HDL CHOLESTEROL (test code = 2220) 44 MG/DL CALC LDL CHOL (test code = 2237) 44 MG/DL RISK RATIO LDL/HDL (test code = 1.00 RATIO 2238) LIPID [id number] 00:00:00 Test Item Value Reference Range Interpretation Comments CHOLESTEROL (test code = 2210) 109 MG/DL TRIGLYCERIDES (test code = 2232) 120 MG/DL HDL CHOLESTEROL (test code = 2220) 44 MG/DL CALC LDL CHOL (test code = 2237) 44 MG/DL RISK RATIO LDL/HDL (test code = 1.00 RATIO 2238) COMPREHENSIVE METABOLIC [id number] 00:00:00 Test Item Value Reference Range Interpretation Comments GLUCOSE (test code = 2217) 155 MG/DL BUN (test code = 2208) 13 MG/DL CREATININE (test code = 2214) 0.74 MG/DL eGFR AMER. (test code 103 ML/MIN/1.73 = 30188) eGFR NON- AMER. (test 89 ML/MIN/1.73 code = 96921) CALC BUN/CREAT (test code = 18 RATIO [...] code = 2219) 19 U/L COMPREHENSIVE METABOLIC [id number] 00:00:00 Test Item Value Reference Range Interpretation Comments GLUCOSE (test code = 2217) 155 MG/DL BUN (test code = 2208) 13 MG/DL CREATININE (test code = 2214) 0.74 MG/DL eGFR AMER. (test code 103 ML/MIN/1.73 = 16614) eGFR NON- AMER. (test 89 ML/MIN/1.73 code = 78397) CALC BUN/CREAT (test code = 18 RATIO [...] A/G RATIO (test code = 1.4 RATIO 2233) BILIRUBIN, TOTAL (test code = 0.3 MG/DL 2206) ALKALINE PHOSPHATASE (test 126 U/L code = 2204) AST (test code = 2218) 17 U/L ALT (test code = 2219) 19 U/L [id number] 00:00:00 Test Item Value Reference Range Interpretation Comments TSH, THIRD GENERATION (test code 1.430 UIU/ML = 2821) [id number] 00:00:00 Test Item Value Reference Range Interpretation Comments TSH, THIRD GENERATION (test code 1.430 UIU/ML = 2821) LIPID [id number] 00:00:00 Test Item Value Reference Range Interpretation Comments CHOLESTEROL (test code = 2210) 109 MG/DL TRIGLYCERIDES (test code = 2232) 120 MG/DL HDL CHOLESTEROL (test code = 2220) 44 MG/DL CALC LDL CHOL (test code = 2237) 44 MG/DL RISK RATIO LDL/HDL (test code = 1.00 RATIO 2238) [id number] 00:00:00 Test Item Value Reference Range Interpretation Comments TSH, THIRD GENERATION (test code 1.430 UIU/ML = 2821) COMPREHENSIVE METABOLIC [id number] 00:00:00 Test Item Value Reference Range Interpretation Comments GLUCOSE (test code = 2217) 155 MG/DL BUN (test code = 2208) 13 MG/DL CREATININE (test code = 2214) 0.74 MG/DL eGFR AMER. (test code 103 ML/MIN/1.73 = 80299) eGFR NON- AMER. (test 89 ML/MIN/1.73 code = 41400) CALC BUN/CREAT (test code = 18 RATIO [...] A/G RATIO (test code = 1.4 RATIO 2233) BILIRUBIN, TOTAL (test code = 0.3 MG/DL 2206) ALKALINE PHOSPHATASE (test 126 U/L code = 2203) AST (test code = 2218) 17 U/L ALT (test code = 2219) 19 U/L [id number] 00:00:00 Test Item Value Reference Range Interpretation Comments TSH, THIRD GENERATION (test code 1.430 UIU/ML = 2821) [id number] 00:00:00 Test Item Value Reference Range Interpretation Comments TSH, THIRD GENERATION (test code 1.430 UIU/ML = 2821) CBC W/AUTO [id number] 00:00:00 Test Item Value Reference Range Interpretation [...] code = 1015) 380 K/UL CBC W/AUTO [id number] 00:00:00 Test Item Value Reference Range Interpretation [...] code = 1015) 380 K/UL CBC W/AUTO [id number] 00:00:00 Test Item Value Reference Range Interpretation [...] (test code = 1015) 380 K/UL HEMOGLOBIN [id number] 00:00:00 Test Item Value Reference Range Interpretation Comments HEMOGLOBIN A1c (test code = 42542) 7.2 % HEMOGLOBIN [id number] 00:00:00 Test Item Value Reference Range Interpretation Comments HEMOGLOBIN A1c (test code = 90336) 7.2 % HEMOGLOBIN [id number] 00:00:00 Test Item Value Reference Range Interpretation Comments HEMOGLOBIN A1c (test code = 32842) 7.2 % LIPID [id number] 00:00:00 Test Item Value Reference Range Interpretation Comments CHOLESTEROL (test code = 2210) 109 MG/DL TRIGLYCERIDES (test code = 2232) 120 MG/DL HDL CHOLESTEROL (test code = 2220) 44 MG/DL CALC LDL CHOL (test code = 2237) 44 MG/DL RISK RATIO LDL/HDL (test code = 1.00 RATIO 2238) LIPID [id number] 00:00:00 Test Item Value Reference Range Interpretation Comments CHOLESTEROL (test code = 2210) 109 MG/DL TRIGLYCERIDES (test code = 2232) 120 MG/DL HDL CHOLESTEROL (test code = 2220) 44 MG/DL CALC LDL CHOL (test code = 2237) 44 MG/DL RISK RATIO LDL/HDL (test code = 1.00 RATIO 2238) COMPREHENSIVE METABOLIC [id number] 00:00:00 Test Item Value Reference Range Interpretation Comments GLUCOSE (test code = 2217) 155 MG/DL BUN (test code = 2208) 13 MG/DL CREATININE (test code = 2214) 0.74 MG/DL eGFR AMER. (test code 103 ML/MIN/1.73 = 56035) eGFR NON- AMER. (test 89 ML/MIN/1.73 code = 25228) CALC BUN/CREAT (test code = 18 RATIO [...] code = 2219) 19 U/L COMPREHENSIVE METABOLIC [id number] 00:00:00 Test Item Value Reference Range Interpretation Comments GLUCOSE (test code = 2217) 155 MG/DL BUN (test code = 2208) 13 MG/DL CREATININE (test code = 2214) 0.74 MG/DL eGFR AMER. (test code 103 ML/MIN/1.73 = 79606) eGFR NON- AMER. (test 89 ML/MIN/1.73 code = 04926) CALC BUN/CREAT (test code = 18 RATIO [...] A/G RATIO (test code = 1.4 RATIO 2233) BILIRUBIN, TOTAL (test code = 0.3 MG/DL 2206) ALKALINE PHOSPHATASE (test 126 U/L code = 2204) AST (test code = 2218) 17 U/L ALT (test code = 2219) 19 U/L [id number] 00:00:00 Test Item Value Reference Range Interpretation Comments TSH, THIRD GENERATION (test code 1.430 UIU/ML = 2821) [id number] 00:00:00 Test Item Value Reference Range Interpretation Comments TSH, THIRD GENERATION (test code 1.430 UIU/ML = 2821) [id number] 00:00:00 Test Item Value Reference Range Interpretation Comments TSH, THIRD GENERATION (test code 1.430 UIU/ML = 2821) CBC W/AUTO [id number] 00:00:00 Test Item Value Reference Range Interpretation [...] code = 1015) 380 K/UL CBC W/AUTO [id number] 00:00:00 Test Item Value Reference Range Interpretation [...] COUNT (test code = 1015) 380 K/UL RISHI, EMBOLIZATION, [id number] 13:13:00For 03/17 after first caseReason for exam:->right MMA embolization for chronic subdural hematomaAne sthesia:->[facility] : 1960 Sex: FFINAL REPORT [...] and maintained on heparinized flush. A 6 Somali Envoy guide catheter and 5 Somali Select catheter were introduced and brought into [...] filling slowed we transitioned to coil embolization. Carlos [employer] Kirsten-coils and [employer] Micro[employer]lex were used [...] artery is large and size, possibly a MERRY [employer] ROUND ATTENDANT, and the anterior choroidalartery is visualized. The [...] MDReport Verified Date/Time: 03/20/2020 13:13:46 Reading Location: [place] [address] Neuro Angio Reading Room POCT- GLUCOSE [id number] 11:40:00 Test Item Value Reference Range Interpretation Comments POC-GLUCOSE METER 152 mg/dL 70-110 H : TESTED A T [facility] 6720 (Salesforce) (test code = [facility], 1538) [address]: Bellows Charger Assembler/Techni john ID = [id number] for Esperanza Monreal POCT-GLUCOSE [id number] 06:49:00 Test Item Value Reference Range Interpretation Comments POC-GLUCOSE METER 130 mg/dL 70-110 H : TESTED A T [facility] 6720 ([employer]) (test code = [facility], 1538) [address]: Bellows Charger Assembler/Techni john ID = [id number] for Shaggy Hall CALCIUM, [id number] 06:13:00 Test Item Value Reference Range Interpretation Comments CALCIUM IONIZED (BEAKER) (test 1.11 mmol/L 1.12-1.27 L code = 698) PH, BLOOD (BEAKER) (test code = 7.40 1810) CT, BRAIN, WITHOUT [id number] 05:00:00Unlisted Reason for Exam - Click Yes and Enter Reason Below->No [facility] : 1960 Sex: FFINAL REPORT [...] cerebral hemisphere. There is a stable 5mm lkfeu-sl-zttj midline shift.There are stable thin right parafalcine [...] hematoma. With mild parenchymal mass effect. Stable qhejm-jf-pwbj midline shift.Stable thinright parafalcine and right tentorial subdural hematomas. Signed: Paul Charlton MDReport Verified Date/Time: 03/18/2020 05:00:25 BASIC METABOLIC [id number] 04:38:00 Test Item Value Reference Range Interpretation [...] S NOT APPLICABLE FOR DIALYSIS PATIEN TS. Bellows Charger Assembler ID - [id number] 04:38:00 Test Item Value Reference Range Interpretation Comments MAGNESIUM (BEAKER) (test code = 1.8 mg/dL 1.6-2.6 627) [employer]s Charger Assembler ID - [id number] 04:38:00 Test Item Value Reference Range Interpretation Comments PHOSPHORUS (BEAKER) (test code = 2.8 mg/dL 2.3-4.7 604) Bellows Charger Assembler ID - ADMINCBC W/PLT COUNT & AUTO [id number] 04:29:00 Test Item Value Reference Range Interpretation [...] PERCENT (BEAKER) (test code = 2801) POCT-GLUCOSE [id number] 22:17:00 Test Item Value Reference Range Interpretation Comments POC-GLUCOSE METER 171 mg/dL 70-110 H : TESTED A T [facility] 6720 (BEAKER) (test code = [facility], 1538) [address]: Bellows Charger Assembler/Techni john ID = [id number] for Shaggy Hall POCT-GLUCOSE [id number] 16:50:00 Test Item Value Reference Range Interpretation Comments POC-GLUCOSE METER 169 mg/dL 70-110 H : Notified RN/MD: ([facility]) (test code = TESTED AT [facility] 6720 1538) [facility], [address]: Bellows Charger Assembler/Techni john ID = [id number] for Esperanza Monreal POCT-GLUCOSE [id number] 08:36:00 Test Item Value Reference Range Interpretation Comments POC-GLUCOSE METER 152 mg/dL 70-110 H : TESTED A T [facility] 6720 ([facility]) (test code = [facility], 1538) [address]: Bellows Charger Assembler/Techni john ID = [id number] for MOHAN MCCURDY BASIC METABOLIC [id number] 06:16:00 Test Item Value Reference Range Interpretation [...] S NOT APPLICABLE FOR DIALYSIS PATIEN TS. Bellows Charger Assembler ID - ADMINCBC W/PLT COUNT & AUTO [id number] 05:49:00 Test Item Value Reference Range Interpretation [...] PERCENT (BEAKER) (test code = 2801) POCT-GLUCOSE [id number] 20:45:00 Test Item Value Reference Range Interpretation Comments POC-GLUCOSE METER 160 mg/dL 70-110 H : Notified RN/MD: (Y[facility]ON) (test code = TESTED AT [facility] 6720 1538) [facility], [address]: Bellows Charger Assembler/Techni john ID = [id number] for CINTHYA SIMS PROTHROMBIN [id number] 18:22:00 Test Item Value Reference Range Interpretation [...] is 2.5-3.5 for patients wiht mechanical heart valves.[id number] 17:48:00 Test Item Value Reference Range Interpretation [...] 2.5-3.5 for patients wiht mechanical heart valves.POCT-GLUCOSE [id number] 17:37:00 Test Item Value Reference Range Interpretation Comments POC-GLUCOSE METER 182 mg/dL 70-110 H : TESTED A T [facility] 6720 (BEAKER) (test code = ELMO Miranda [facility], 1538) [address]: Bellows Charger Assembler/Techni john ID = [id number] for Gerson rao Lan [id number] 16:53:00 Test Item Value Reference Range Interpretation Comments FIBRINOGEN LEVEL (BEAKER) (test 391 mg/dl 225-434 code = 658) POCT-GLUCOSE [id number] 13:39:00 Test Item Value Reference Range Interpretation Comments POC-GLUCOSE METER 137 mg/dL 70-110 H : TESTED A T [facility] 6720 (BEAKER) (test code = ELMO Miranda [place], 1538) [id number]: Bellows Charger Assembler/Techni john ID = [id number] for Lan Shaffer BASIC METABOLIC [id number] 06:01:00 Test Item Value Reference Range Interpretation [...] S NOT APPLICABLE FOR DIALYSIS PATIEN TS. Bellows Charger Assembler ID - DBCBC W/PLT COUNT & AUTO [id number] 05:48:00 Test Item Value Reference Range Interpretation [...] PERCENT (BEAKER) (test code = 2801) POCT-GLUCOSE [id number] 20:51:00 Test Item Value Reference Range Interpretation Comments POC-GLUCOSE METER 209 mg/dL 70-110 H : Notified RN/MD: (Y[facility]ON) (test code = TESTED AT [facility] 6720 9278) [facility], [address]: Bellows Charger Assembler/Techni john ID = [id number] for DO SIMMONS MOHAMUDKEY POCT-GLUCOSE [id number] 18:02:00 Test Item Value Reference Range Interpretation Comments POC-GLUCOSE METER 178 mg/dL 70-110 H : TESTED A T [facility] 6720 (YOON) (test code = ELMO Miranda [facility], 1538) [address]: Bellows Charger Assembler/Techni john ID = [id number] for JASS MCQUEEN RAD, CHEST, 1 VIEW, NON [id number] 14:34:00Reason for exam:->SOBShould this be performed at the bedside?->Yes [facility] : 1960 Sex: FFINAL REPORT Chest, one view HISTORY: Shortness of breath Comparison: 03/13/2020 Findings: Lungs: Increasing bilateral interstitial opacities, suggesting pulmonary edema. Heart: Cardiac silhouette is mildly enlarged. Pleura: No pleural effusion or pneumothorax. Bones: Unremarkable. Lines/tubes: Unchanged cardiac pacer. Signed: Raudel Vo MDRepharry s. [facility] Verified Date/Time: 03/15/2020 14:34:36 Reading Location: [address] Transitional Reading Room POCT-GLUCOSE [id number] 12:58:00 Test Item Value Reference Range Interpretation Comments POC-GLUCOSE METER 221 mg/dL 70-110 H : Notified RN/: (YOON) (test code = TESTED AT [facility] 6720 1538) [place], [address]: Bellows Charger Assembler/Techni john ID = [id number] for AG JARAD VILLALTA CBC W/PLT COUNT & AUTO [id number] 07:11:00 Test Item Value Reference Range Interpretation [...] PERCENT (BEAKER) (test code = 2801) POCT-GLUCOSE [id number] 06:54:00 Test Item Value Reference Range Interpretation Comments POC-GLUCOSE METER 194 mg/dL 70-110 H : TESTED A T [facility] 67[address] (BEAKER) (test code = [place], 1538) [id number]: [employer]ger Assembler/Techni john ID = [id number] for REBEKAH CAREY CT, BRAIN, WITHOUT [id number] 05:45:00Unlisted Reason for Exam - Click Yes and Enter Reason Below->No [facility] ESTRADAPattie Perales : 1960 Sex: FFINAL REPORT EXAM: CT [...] right cerebral hemisphere. There is a 5mm blyah-me-yqyb midline shift (previously measured 9 mm). There [...] sub dural hematoma. Associated mass effect. Decreased tmzdy-di-szde midline shift. No hydrocephalus. Stable thin posterior parafalcine and right tentorial subdural hematomas. Signed: Paul Charlton MDReportVerified Date/Time: 03/15/2020 05:45:30 BASIC METABOLIC [id number] 05:43:00 Test Item Value Reference Range Interpretation [...] S NOT APPLICABLE FOR DIALYSIS PATIEN TS. [employer]sembler ID - EDASIPOCT-GLUCOSE [id number] 02:37:00 Test Item Value Reference Range Interpretation Comments POC-GLUCOSE METER 222 mg/dL 70-110 H : TESTED A T [facility] 6720 (BEAKER) (test code = [place], 1538) [id number]: [employer] Assembler/Techni john ID = [id number] for REBEKAH CAREY POCT-GLUCOSE [id number] 19:11:00 Test Item Value Reference Range Interpretation Comments POC-GLUCOSE METER 214 mg/dL 70-110 H : TESTED A T [facility] 6720 (BEAKER) (test code = ELMO Miranda [facility], 1538) 15367: Bellows Charger Assembler/Techni john ID = [id number] for JASS MCQUEEN POCT-GLUCOSE [id number] 13:51:00 Test Item Value Reference Range Interpretation Comments POC-GLUCOSE METER 179 mg/dL 70-110 H : TESTED A T [facility] 6720 (BEAKER) (test code = ELMO Miranda [facility], 1538) 60420: Bellows Charger Assembler/Techni john ID = [id number] for VA RELA, BOLA POCT-GLUCOSE [id number] 13:49:00 Test Item Value Reference Range Interpretation Comments POC-GLUCOSE METER 172 mg/dL 70-110 H : TESTED A T [facility] 6720 (BEAKER) (test code = ELMO Miranda [facility], 1538) 41398: Bellows Charger Assembler/Techni john ID = [id number] for VA RELA, BOLA SARS-COV2/RT-PCR ([facility])2020-03-14 05:54:00 Test Item Value Reference Range Interpretation Comments SARS-COV2/RT-PCR (test code Negative Not Detected, Negative, = 1715127) See external report for linked test SARS-COV-2 PERFORMING LAB [facility] (test code = 0340623) Negative results do not preclude SARS-CoV-2 infection [...] of the Act.Fact Sheet for Healthcare Pro viders:https://www.Pennant.TeamSnap/Documents/Xpert%20Xpress%20SARS%20CoV-2/Fact%20Sh eets/302-3802%83EVVX-KGB-0%20HEALTHCARE%20PROVIDERS%20FACT%20SHEET.pdfFact Sheet for Healthcare Patients:https://www.Trendy Entertainment.TeamSnap/Documents/Xpert%20Xpress%20SARS%20CoV-2/Fact%20Sheets/302-3801%20SARS-COV -2%20PATIENT%20FACT%20SHEET.pdfPerforming Laboratory:[place] [address], [place] [address]JJAVYPHDN SCREEN, [id number] 05:21:00 Test Item Value Reference Range Interpretation Comments TEST URINE (BEAKER) (test Negative code = 583) B-TYPE NATRIURETIC FACTOR (BNP)2020-03-14 05:19:00 Test Item Value Reference Range Interpretation Comments B-TYPE NATRIURETIC PEPTIDE (BEAKER) 39 pg/mL 0-100 (test code = 700) Bellows Charger Assembler ID - KAYLAH MBASIC METABOLIC [id number] 05:10:00 Test Item Value Reference Range Interpretation [...] S NOT APPLICABLE FOR DIALYSIS PATIEN TS. Bellows Charger Assembler ID - EDASICBC W/PLT COUNT & AUTO [id number] 04:47:00 Test Item Value Reference Range Interpretation [...] = 2801) RAD, CHEST, 1 VIEW, NON [id number] 22:44:00Reason for exam:->preopShould this be performed at the bedside?->Yes [facility] : 1960 [...] cardiomegaly. Soft Tissues and Bones: Mild reversal S shaped curvature of the thoracolumbar spine. No acute osseous abnormality. 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 ID - BSPOCT-GLUCOSE [id number] 16:46:00 Test Item Value Reference Range Interpretation Comments POC-GLUCOSE METER 174 mg/dL 70-110 H : TESTED A Marielos [facility] 6720 (YOON) (test code = ELMO [place], 1538) 42940: Bellows Charger Assembler/Techni john ID = [id number] for FO ADA BRITO CT, BRAIN, WITHOUT [id number] 13:51:00Unlisted Reason for Exam - Click Yes and Enter Reason Below->No [facility] Diaz : 1960 Sex: FFINAL REPORT CT, BRAIN, WITHOUT CONTRAST INDICATION: Subdural hematoma TECHNIQUE: Noncontrast axial imaging was obtained from the vertex to the skull base. Axial images were reconstructedusing a bone algorithm. DOSE REDUCTION: Dose modulation, [...] and falx. Persistent 9 mm leftward midline s hift. No new site of hemorrhage. No evidence of acute territorial infarct. No hydrocephalus. Osseousstructures: No fracture. No suspicious lesion. Paranasal sinuses and mastoid air cells: No evidence of sinusitis. Mastoids are clear. Orbital contents: Globes are intact. IMPRESSION: Expected evolutionof right convexity subdural hematoma with similar extension along the right tentorial leaflet and falx. 9 mm leftward midline shift. Signed: Meservy, Meeta MDReport Verified Date/Time: 03/13/2020 13:51:30 BASI METABOLIC [id number] 11:17:00 Test Item Value Reference Range Interpretation [...] S NOT APPLICABLE FOR DIALYSIS PATIEN TS. Bellows Charger Assembler ID - EDASIEEG AWAKE AND [id number] 10:35:00Reason for exam:- >SeizuresShould this be performed at the bedside?->Yes [facility] : 1960 Sex: FNEUROPHYSIOLOGY EEG REPORT DATES OF TEST: 03/13/20 DATE OF REPORT: 03/13/20 Name: Chrissie Estrada Start time: 08:13 Stop time: 08:35 ACC: [id number] EEG Number: [id number] CPT: 43701 ICD10: R56.9 TECHNICAL SUMMARY: This is a digital video-EEG recorded with 32 input channels reviewed with bipolar and referential montages using the modified combinatorial system nomenclature. DESCRIPTION OF RECORD: Whenmaximally awake, the posterior dominant rhythm is 11 Hz and it is bilaterally symmetric, well regulated and well sustained. Low voltage faster beta frequencies are present in bilateral anterior head regions. During drowsiness, posterior dominant rhythm attenuates and there is an increase in fronto-central theta and incipient vertex waves. Sleep patterns were not observed. HV: Hyperventilation was notperformed. PHOTIC STIMULATION: Photic stimulation was performed using 1-30 Hz flash frequencies. Itdid not elicit abnormal waveforms or responses. IMPRESSION: Normal EEG in wakefulness and drowsinessCLINICAL CORRELATION: There was no focal or lateralizing features, no epileptiform activity or electrographic or electro-clinical seizures. Normal EEG does not rule out a diagnosis of epilepsy. If clinically indicated, consider additional EEG recordings. Angie Tesfaye MD, PhD Epilepsy Attending Elec tronically signed by: ANGIE TESFAYE MD on 03/13/2020 10:35 [facility] METABOL[facility] [id number] 08:26:00 Test Item Value Reference Range Interpretation [...] S NOT APPLICABLE FOR DIALYSIS PATIEN TS. Bellows Charger Assembler ID - EDASICBC W/PLT COUNT & AUTO [id number] 07:06:00 Test Item Value Reference Range Interpretation [...] PERCENT (BEAKER) (test code = 2801) PROTHROMBIN TIME/[id number] 06:46:00 Test Item Value Reference Range Interpretation [...] 2.5-3.5 for patients wiht mechanical heart valves.POCT-GLUCOSE [id number] 09:05:00 Test Item Value Reference Range Interpretation Comments POC-GLUCOSE METER 162 mg/dL 70-110 H : TESTED Pattie Raya [facility] 6720 (BEAKER) (test code = ELMO [place], 1538) 22005: Bellows Charger Assembler/Techni john ID = [id number] for JENNY GAUTHIER HEMOGLOBIN [id number] 07:40:00 Test Item Value Reference Range Interpretation Comments HEMOGLOBIN A1C (BEAKER) (test code = 8.2 % 4.3-6.1 H 368) CBC W/PLT COUNT & AUTO [id number] 06:14:00 Test Item Value Reference Range Interpretation [...] 417) IMMATURE GRANULOCYTES-RELATIVE 0 % 0-1 PERCENT ([facility]) (test code = 2801) TROPONIN [id number] 06:12:00 Test Item Value Reference Range Interpretation Comments TROPONIN I ([facility]) (test code = 397) < ng/mL 0.00-0.03 [...] failure, acidosis, acute neurological disease, and persistent tachyarrhythmia.Bellows Charger Assembler ID - EDASIPOCT-GLUCOSE METER 2020-02-29 21:55:00 Test Item Value Reference Range Interpretation Comments POC-GLUCOSE METER 173 mg/dL 70-110 H : TESTED A T [facility] 6720 ([facility]) (test code = [facility], 153) 40718: Bellows Charger Assembler/Techni john ID = [id number] for DE NNIS, DANO POCT-GLUCOSE [id number] 18:13:00 Test Item Value Reference Range Interpretation Comments POC-GLUCOSE METER 211 mg/dL 70-110 H : [facility] (test code = [facility], 153) 61679: Bellows Charger Assembler/Techni john ID = [id number] for FL ORES, JASS POCT-GLUCOSE [id number] 11:38:00 Test Item Value Reference Range Interpretation Comments POC-GLUCOSE METER 139 mg/dL 70-110 H : Notified RN/MD: ([facility]) (test code = TESTED AT [facility] 6720 153) [facility], [address]: Bellows Charger Assembler/Techni john ID = [id number] for LL OYD, TIKEYA POCT-GLUCOSE [id number] 08:50:00 Test Item Value Reference Range Interpretation Comments POC-GLUCOSE METER 178 mg/dL 70-110 H : [facility] (test code = [facility], 153) 80561: Bellows Charger Assembler/Techni john ID = [id number] for [place] ORES, JASS CT, BRAIN, WITHOUT [id number] 06:57:00Unlisted Reason for Exam - Click Yes and Enter Reason Below->No [facility] : 1960 Sex: FFINAL [...] February 28, 2020 Signed: JR Goldman Robert [facility] Verified Date/Time: 02/29/2020 06:57:51 Reading Location: [facility] C013V Neuro Reading Room REHENSIVE METABOLIC [id number] 06:05:00 Test Item Value Reference Range Interpretation [...] S NOT APPLICABLE FOR DIALYSIS PATIEN TS. Bellows Charger Assembler ID - EDASICBC W/PLT COUNT & AUTO [id number] 05:51:00 Test Item Value Reference Range Interpretation [...] 0-1 PERCENT (BEAKER) (test code = 2801) [id number] 22:48:00 Test Item Value Reference Range Interpretation Comments POTASSIUM (BEAKER) (test code = 3.9 meq/L 3.5-5.1 379) Bellows Charger Assembler ID - DBPOCT-GLUCOSE [id number] 17:00:00 Test Item Value Reference Range Interpretation Comments POC-GLUCOSE METER 175 mg/dL 70-110 H : Notified RN/MD: (Y[place]) (test code = TESTED AT [facility] 3355 7507) [facility], [address]: Bellows Charger Assembler/Techni john ID = [id number] for Esperanza Monreal [id number] 15:18:00 Test Item Value Reference Range Interpretation Comments MAGNESIUM (BEAKER) 2.2 mg/dL 1.6-2.6 Specimen slightly (test code = 627) hemolyzed Bellows Charger Assembler ID - [id number] 15:18:00 Test Item Value Reference Range Interpretation Comments POTASSIUM (BEAKER) 3.4 meq/L 3.5-5.1 L Specimen slightly (test code = 379) hemolyzed Bellows Charger Assembler ID - EDASISARS-COV2/RT-PCR (HS & REF LABS)2020-02-28 13:06:00 Test Item Value Reference Range Interpretation Comments SARS-COV2/RT-PCR (test Negative Not Detected, Negative, code = 7340768) See external report for linked test SARS-COV-2 PERFORMING LAB [facility] CARRI (test code = 5802678) Negative result for this test determines that [...] of the Act.Fact Sheet for Healthcare Prov iders:https://www.ALOSKO.com/sites/default/files/product/documents/Fact_Sheet_HC _Ebwvmando_Zftz_LOSL-NyH-5.pdfFact Sheet for Healthcare Patients:https://www.ALOSKO.TeamSnap/sites/default/files/product/docume nts/Gozh_Hgumq_Igxmgqho_Lptx_NQAE-GiZ-6.pdfPerforming Laboratory:[facility], [place] [address]GABC-TLBMPNW METER 2020-02-28 07:38:00 Test Item Value Reference Range Interpretation Comments POC-GLUCOSE METER 150 mg/dL 70-110 H : TESTED A T [facility] 6720 (BEAKER) (test code = ELMO Miranda [facility], 1538) 52211: Bellows Charger Assembler/Techni john ID = [id number] for Esperanza Monreal COMPREHENSIVE METABOLIC [id number] 06:52:00 Test Item Value Reference Range Interpretation [...] S NOT APPLICABLE FOR DIALYSIS PATIEN TS. Bellows Charger Assembler ID - EDASIOnce on admission and Daily AM [id number] 06:52:00 Test Item Value Reference Range Interpretation Comments MAGNESIUM (BEAKER) (test code = 1.8 mg/dL 1.6-2.6 627) Bellows Charger Assembler ID - EDASIOnce on admission and Daily AM [id number] 06:52:00 Test Item Value Reference Range Interpretation Comments PHOSPHORUS (BEAKER) (test code = 3.2 mg/dL 2.3-4.7 604) Bellows Charger Assembler ID - EDASIOnce on admission and Daily AM afterwardsTROPONIN [id number] 06:32:00 Test Item Value Reference Range Interpretation [...] failure, acidosis, acute neurological disease, and persistent tachyarrhythmia.Bellows Charger Assembler ID - EDASICBC W/PLT COUNT & AUTO [id number] 06:17:00 Test Item Value Reference Range Interpretation [...] PERCENT (BEAKER) (test code = 2801) POCT-GLUCOSE [id number] 02:43:00 Test Item Value Reference Range Interpretation Comments POC-GLUCOSE METER 275 mg/dL 70-110 H : TESTED A T [facility] 6720 (BEAKER) (test code = ELMO [place], 1538) [address]: Bellows Charger Assembler/Techni john ID = [id number] for LAN KIMBLE CT, BRAIN, WITHOUT [id number] 02:27:00Unlisted Reason for Exam - Click Yes and Enter Reason Below->No [facility] : 1960 Sex: FFINAL [...] right falx and tentorial leaflet. Signed: Lucy Cameronannette Verified Date/Time: 02/28/2020 02:27:59 COMPREHENSIVE METABOLIC [id number] 23:28:00 Test Item Value Reference Range Interpretation [...] S NOT APPLICABLE FOR DIALYSIS PATIEN TS. Bellows Charger Assembler ID - PIAYA LHEPATIC FUNCTION [id number] 23:28:00 Test Item Value Reference Range Interpretation [...] (test code = 16 U/L 6-55 347) Bellows Charger Assembler ID - PIAYA [id number] 23:21:00 Test Item Value Reference Range Interpretation Comments FIBRINOGEN LEVEL (BEAKER) (test 413 mg/dl 225-434 code = 658) [id number] 23:21:00 Test Item Value Reference Range Interpretation Comments PARTIAL THROMBOPLASTIN TIME 26.2 seconds 22.5-36.0 (BEAKER) (test code = 760) PROTHROMBIN [id number] 23:20:00 Test Item Value Reference Range Interpretation [...] mechanical heart valves.CBC W/PLT COUNT & AUTO [id number] 23:15:00 Test Item Value Reference Range Interpretation [...] (BEAKER) (test code = 2801) CBC W/AUTO [id number] 00:00:00 Test Item Value Reference Range Interpretation [...] code = 1015) 383 K/UL COMPREHENSIVE METABOLIC [id number] 00:00:00 Test Item Value Reference Range Interpretation Comments GLUCOSE (test code = 2217) 198 MG/DL BUN (test code = 2208) 8 MG/DL CREATININE (test code = 2214) 0.69 MG/DL eGFR AMER. (test code 112 ML/MIN/1.73 = 21433) eGFR NON- AMER. (test 97 ML/MIN/1.73 code = 79616) CALC BUN/CREAT (test code = 12 RATIO [...] code = 2219) 19 U/L COMPREHENSIVE METABOLIC [id number] 00:00:00 Test Item Value Reference Range Interpretation Comments GLUCOSE (test code = 2217) 198 MG/DL BUN (test code = 2208) 8 MG/DL CREATININE (test code = 2214) 0.69 MG/DL eGFR AMER. (test code 112 ML/MIN/1.73 = 31629) eGFR NON- AMER. (test 97 ML/MIN/1.73 code = 84209) CALC BUN/CREAT (test code = 12 RATIO 2235) SODIUM (test code = 2231) 138 MEQ/L POTASSIUM (test code = 2228) 3.8 MEQ/L CHLORIDE (test code = 2215) 100 MEQ/L CARBON DIOXIDE (test code = 27 MEQ/L 2206) CALCIUM (test code = 2209) 9.3 MG/DL PROTEIN, TOTAL (test code = 7.4 G/DL 222) ALBUMIN (test code = 2201) 4.5 G/DL CALC GLOBULIN (test code = 2.9 G/DL 2240) CALC A/G RATIO (test code = 1.6 RATIO 2234) BILIRUBIN, TOTAL (test code = 0.3 MG/DL 2206) ALKALINE PHOSPHATASE (test 142 U/L code = 2204) AST (test code = 2218) 15 U/L ALT (test code = 2219) 19 U/L LIPID [id number] 00:00:00 Test Item Value Reference Range Interpretation Comments CHOLESTEROL (test code = 2210) 131 MG/DL TRIGLYCERIDES (test code = 2232) 225 MG/DL HDL CHOLESTEROL (test code = 2220) 41 MG/DL CALC LDL CHOL (test code = 2237) 62 MG/DL RISK RATIO LDL/HDL (test code = 1.51 RATIO 2238) LIPID [id number] 00:00:00 Test Item Value Reference Range Interpretation Comments CHOLESTEROL (test code = 2210) 131 MG/DL TRIGLYCERIDES (test code = 2232) 225 MG/DL HDL CHOLESTEROL (test code = 2220) 41 MG/DL CALC LDL CHOL (test code = 2237) 62 MG/DL RISK RATIO LDL/HDL (test code = 1.51 RATIO 2238) HEMOGLOBIN [id number] 00:00:00 Test Item Value Reference Range Interpretation Comments HEMOGLOBIN A1c (test code = 96001) 8.4 % HEMOGLOBIN [id number] 00:00:00 Test Item Value Reference Range Interpretation Comments HEMOGLOBIN A1c (test code = 60397) 8.4 % HEMOGLOBIN [id number] 00:00:00 Test Item Value Reference Range Interpretation Comments HEMOGLOBIN A1c (test code = 33347) 8.4 % [id number] 00:00:00 Test Item Value Reference Range Interpretation Comments TSH, THIRD GENERATION (test code 1.280 UIU/ML = 2821) [id number] 00:00:00 Test Item Value Reference Range Interpretation Comments TSH, THIRD GENERATION (test code 1.280 UIU/ML = 2821) [id number] 00:00:00 Test Item Value Reference Range Interpretation Comments TSH, THIRD GENERATION (test code 1.280 UIU/ML = 2821) CBC W/AUTO [id number] 00:00:00 Test Item Value Reference Range Interpretation [...] code = 1015) 383 K/UL CBC W/AUTO [id number] 00:00:00 Test Item Value Reference Range Interpretation [...] code = 1015) 383 K/UL CBC W/AUTO [id number] 00:00:00 Test Item Value Reference Range Interpretation [...] code = 1015) 383 K/UL COMPREHENSIVE METABOLIC [id number] 00:00:00 Test Item Value Reference Range Interpretation Comments GLUCOSE (test code = 2217) 198 MG/DL BUN (test code = 2208) 8 MG/DL CREATININE (test code = 2214) 0.69 MG/DL eGFR AMER. (test code 112 ML/MIN/1.73 = 81967) eGFR NON- AMER. (test 97 ML/MIN/1.73 code = 51342) CALC BUN/CREAT (test code = 12 RATIO [...] BILIRUBIN, TOTAL (test code = 0.3 MG/DL 220) ALKALINE PHOSPHATASE (test 142 U/L code = 2204) AST (test code = 2218) 15 U/L ALT (test code = 2219) 19 U/L COMPREHENSIVE METABOLIC [id number] 00:00:00 Test Item Value Reference Range Interpretation Comments GLUCOSE (test code = 2217) 198 MG/DL BUN (test code = 2208) 8 MG/DL CREATININE (test code = 2214) 0.69 MG/DL eGFR AMER. (test code 112 ML/MIN/1.73 = 23314) eGFR NON- AMER. (test 97 ML/MIN/1.73 code = 63587) CALC BUN/CREAT (test code = 12 RATIO [...] (test code = 2219) 19 U/L LIPID [id number] 00:00:00 Test Item Value Reference Range Interpretation Comments CHOLESTEROL (test code = 2210) 131 MG/DL TRIGLYCERIDES (test code = 2232) 225 MG/DL HDL CHOLESTEROL (test code = 2220) 41 MG/DL CALC LDL CHOL (test code = 2237) 62 MG/DL RISK RATIO LDL/HDL (test code = 1.51 RATIO 2238) LIPID [id number] 00:00:00 Test Item Value Reference Range Interpretation Comments CHOLESTEROL (test code = 2210) 131 MG/DL TRIGLYCERIDES (test code = 2232) 225 MG/DL HDL CHOLESTEROL (test code = 2220) 41 MG/DL CALC LDL CHOL (test code = 2237) 62 MG/DL RISK RATIO LDL/HDL (test code = 1.51 RATIO 2238) HEMOGLOBIN [id number] 00:00:00 Test Item Value Reference Range Interpretation Comments HEMOGLOBIN A1c (test code = 34956) 8.4 % HEMOGLOBIN [id number] 00:00:00 Test Item Value Reference Range Interpretation Comments HEMOGLOBIN A1c (test code = 26846) 8.4 % HEMOGLOBIN [id number] 00:00:00 Test Item Value Reference Range Interpretation Comments HEMOGLOBIN A1c (test code = 20778) 8.4 % [id number] 00:00:00 Test Item Value Reference Range Interpretation Comments TSH, THIRD GENERATION (test code 1.280 UIU/ML = 2821) [id number] 00:00:00 Test Item Value Reference Range Interpretation Comments TSH, THIRD GENERATION (test code 1.280 UIU/ML = 2821) [id number] 00:00:00 Test Item Value Reference Range Interpretation Comments TSH, THIRD GENERATION (test code 1.280 UIU/ML = 2821) CBC W/AUTO [id number] 00:00:00 Test Item Value Reference Range Interpretation [...] code = 1015) 383 K/UL CBC W/AUTO [id number] 00:00:00 Test Item Value Reference Range Interpretation [...] code = 1015) 383 K/UL CBC W/AUTO [id number] 00:00:00 Test Item Value Reference Range Interpretation [...] code = 1015) 383 K/UL COMPREHENSIVE METABOLIC [id number] 00:00:00 Test Item Value Reference Range Interpretation Comments GLUCOSE (test code = 2217) 198 MG/DL BUN (test code = 2208) 8 MG/DL CREATININE (test code = 2214) 0.69 MG/DL eGFR AMER. (test code 112 ML/MIN/1.73 = 73024) eGFR NON- AMER. (test 97 ML/MIN/1.73 code = 54274) CALC BUN/CREAT (test code = 12 RATIO [...] BILIRUBIN, TOTAL (test code = 0.3 MG/DL 220) ALKALINE PHOSPHATASE (test 142 U/L code = 2204) AST (test code = 2218) 15 U/L ALT (test code = 2219) 19 U/L COMPREHENSIVE METABOLIC [id number] 00:00:00 Test Item Value Reference Range Interpretation Comments GLUCOSE (test code = 2217) 198 MG/DL BUN (test code = 2208) 8 MG/DL CREATININE (test code = 2214) 0.69 MG/DL eGFR AMER. (test code 112 ML/MIN/1.73 = 89944) eGFR NON- AMER. (test 97 ML/MIN/1.73 code = 45944) CALC BUN/CREAT (test code = 12 RATIO [...] CALC GLOBULIN (test code = 2.9 G/DL 224) CALC A/G RATIO (test code = 1.6 RATIO 4) BILIRUBIN, TOTAL (test code = 0.3 MG/DL 2206) ALKALINE PHOSPHATASE (test 142 U/L code = 2204) AST (test code = 2218) 15 U/L ALT (test code = 2219) 19 U/L LIPID [id number] 00:00:00 Test Item Value Reference Range Interpretation Comments CHOLESTEROL (test code = 2210) 131 MG/DL TRIGLYCERIDES (test code = 2232) 225 MG/DL HDL CHOLESTEROL (test code = 2220) 41 MG/DL CALC LDL CHOL (test code = 2237) 62 MG/DL RISK RATIO LDL/HDL (test code = 1.51 RATIO 2238) LIPID [id number] 00:00:00 Test Item Value Reference Range Interpretation Comments CHOLESTEROL (test code = 2210) 131 MG/DL TRIGLYCERIDES (test code = 2232) 225 MG/DL HDL CHOLESTEROL (test code = 2220) 41 MG/DL CALC LDL CHOL (test code = 2237) 62 MG/DL RISK RATIO LDL/HDL (test code = 1.51 RATIO 2238) HEMOGLOBIN [id number] 00:00:00 Test Item Value Reference Range Interpretation Comments HEMOGLOBIN A1c (test code = 92890) 8.4 % HEMOGLOBIN [id number] 00:00:00 Test Item Value Reference Range Interpretation Comments HEMOGLOBIN A1c (test code = 66885) 8.4 % HEMOGLOBIN [id number] 00:00:00 Test Item Value Reference Range Interpretation Comments HEMOGLOBIN A1c (test code = 87449) 8.4 % [id number] 00:00:00 Test Item Value Reference Range Interpretation Comments TSH, THIRD GENERATION (test code 1.280 UIU/ML = 2821) [id number] 00:00:00 Test Item Value Reference Range Interpretation Comments TSH, THIRD GENERATION (test code 1.280 UIU/ML = 2821) [id number] 00:00:00 Test Item Value Reference Range Interpretation Comments TSH, THIRD GENERATION (test code 1.280 UIU/ML = 2821) CBC W/AUTO [id number] 00:00:00 Test Item Value Reference Range Interpretation [...] code = 1015) 383 K/UL CBC W/AUTO [id number] 00:00:00 Test Item Value Reference Range Interpretation [...] code = 1015) 383 K/UL CBC W/AUTO [id number] 00:00:00 Test Item Value Reference Range Interpretation [...] code = 1015) 383 K/UL COMPREHENSIVE METABOLIC [id number] 00:00:00 Test Item Value Reference Range Interpretation Comments GLUCOSE (test code = 2217) 198 MG/DL BUN (test code = 2208) 8 MG/DL CREATININE (test code = 2214) 0.69 MG/DL eGFR AMER. (test code 112 ML/MIN/1.73 = 34869) eGFR NON- AMER. (test 97 ML/MIN/1.73 code = 61073) CALC BUN/CREAT (test code = 12 RATIO [...] code = 2219) 19 U/L CBC W/AUTO [id number] 00:00:00 Test Item Value Reference Range Interpretation [...] code = 1015) 383 K/UL CBC W/AUTO [id number] 00:00:00 Test Item Value Reference Range Interpretation [...] code = 1015) 383 K/UL COMPREHENSIVE METABOLIC [id number] 00:00:00 Test Item Value Reference Range Interpretation Comments GLUCOSE (test code = 2217) 198 MG/DL BUN (test code = 2208) 8 MG/DL CREATININE (test code = 2214) 0.69 MG/DL eGFR AMER. (test code 112 ML/MIN/1.73 = 60498) eGFR NON- AMER. (test 97 ML/MIN/1.73 code = 49075) CALC BUN/CREAT (test code = 12 RATIO [...] code = 2219) 19 U/L COMPREHENSIVE METABOLIC [id number] 00:00:00 Test Item Value Reference Range Interpretation Comments GLUCOSE (test code = 2217) 198 MG/DL BUN (test code = 2208) 8 MG/DL CREATININE (test code = 2214) 0.69 MG/DL eGFR AMER. (test code 112 ML/MIN/1.73 = 81384) eGFR NON- AMER. (test 97 ML/MIN/1.73 code = 39434) CALC BUN/CREAT (test code = 12 RATIO [...] (test code = 2219) 19 U/L LIPID [id number] 00:00:00 Test Item Value Reference Range Interpretation Comments CHOLESTEROL (test code = 2210) 131 MG/DL TRIGLYCERIDES (test code = 2232) 225 MG/DL HDL CHOLESTEROL (test code = 2220) 41 MG/DL CALC LDL CHOL (test code = 2237) 62 MG/DL RISK RATIO LDL/HDL (test code = 1.51 RATIO 2238) LIPID [id number] 00:00:00 Test Item Value Reference Range Interpretation Comments CHOLESTEROL (test code = 2210) 131 MG/DL TRIGLYCERIDES (test code = 2232) 225 MG/DL HDL CHOLESTEROL (test code = 2220) 41 MG/DL CALC LDL CHOL (test code = 2237) 62 MG/DL RISK RATIO LDL/HDL (test code = 1.51 RATIO 2238) LIPID [id number] 00:00:00 Test Item Value Reference Range Interpretation Comments CHOLESTEROL (test code = 2210) 131 MG/DL TRIGLYCERIDES (test code = 2232) 225 MG/DL HDL CHOLESTEROL (test code = 2220) 41 MG/DL CALC LDL CHOL (test code = 2237) 62 MG/DL RISK RATIO LDL/HDL (test code = 1.51 RATIO 2238) HEMOGLOBIN [id number] 00:00:00 Test Item Value Reference Range Interpretation Comments HEMOGLOBIN A1c (test code = 08998) 8.4 % HEMOGLOBIN [id number] 00:00:00 Test Item Value Reference Range Interpretation Comments HEMOGLOBIN A1c (test code = 48685) 8.4 % HEMOGLOBIN [id number] 00:00:00 Test Item Value Reference Range Interpretation Comments HEMOGLOBIN A1c (test code = 83539) 8.4 % [id number] 00:00:00 Test Item Value Reference Range Interpretation Comments TSH, THIRD GENERATION (test code 1.280 UIU/ML = 2821) [id number] 00:00:00 Test Item Value Reference Range Interpretation Comments TSH, THIRD GENERATION (test code 1.280 UIU/ML = 2821) [id number] 00:00:00 Test Item Value Reference Range Interpretation Comments TSH, THIRD GENERATION (test code 1.280 UIU/ML = 2821) HEMOGLOBIN [id number] 00:00:00 Test Item Value Reference Range Interpretation Comments HEMOGLOBIN A1c (test code = 14574) 8.4 % HEMOGLOBIN [id number] 00:00:00 Test Item Value Reference Range Interpretation Comments HEMOGLOBIN A1c (test code = 76017) 8.4 % [id number] 00:00:00 Test Item Value Reference Range Interpretation Comments TSH, THIRD GENERATION (test code 1.280 UIU/ML = 2821) [id number] 00:00:00 Test Item Value Reference Range Interpretation Comments TSH, THIRD GENERATION (test code 1.280 UIU/ML = 2821) CBC W/AUTO [id number] 00:00:00 Test Item Value Reference Range Interpretation [...] code = 1015) 383 K/UL CBC W/AUTO [id number] 00:00:00 Test Item Value Reference Range Interpretation [...] code = 1015) 383 K/UL CBC W/AUTO [id number] 00:00:00 Test Item Value Reference Range Interpretation [...] code = 1015) 383 K/UL COMPREHENSIVE METABOLIC [id number] 00:00:00 Test Item Value Reference Range Interpretation Comments GLUCOSE (test code = 2217) 198 MG/DL BUN (test code = 2208) 8 MG/DL CREATININE (test code = 2214) 0.69 MG/DL eGFR AMER. (test code 112 ML/MIN/1.73 = 89594) eGFR NON- AMER. (test 97 ML/MIN/1.73 code = 97056) CALC BUN/CREAT (test code = 12 RATIO 2235) SODIUM (test code = 2231) 138 MEQ/L POTASSIUM (test code = 2228) 3.8 MEQ/L CHLORIDE (test code = 2215) 100 MEQ/L CARBON DIOXIDE (test code = 27 MEQ/L 2206) CALCIUM (test code = 2209) 9.3 MG/DL PROTEIN, TOTAL (test code = 7.4 G/DL 222) ALBUMIN (test code = 2201) 4.5 G/DL CALC GLOBULIN (test code = 2.9 G/DL 2240) CALC A/G RATIO (test code = 1.6 RATIO 2234) BILIRUBIN, TOTAL (test code = 0.3 MG/DL 2207) ALKALINE PHOSPHATASE (test 142 U/L code = 2204) AST (test code = 2218) 15 U/L ALT (test code = 2219) 19 U/L COMPREHENSIVE METABOLIC [id number] 00:00:00 Test Item Value Reference Range Interpretation Comments GLUCOSE (test code = 2217) 198 MG/DL BUN (test code = 2208) 8 MG/DL CREATININE (test code = 2214) 0.69 MG/DL eGFR AMER. (test code 112 ML/MIN/1.73 = 37929) eGFR NON- AMER. (test 97 ML/MIN/1.73 code = 19397) CALC BUN/CREAT (test code = 12 RATIO [...] (test code = 2219) 19 U/L LIPID [id number] 00:00:00 Test Item Value Reference Range Interpretation Comments CHOLESTEROL (test code = 2210) 131 MG/DL TRIGLYCERIDES (test code = 2232) 225 MG/DL HDL CHOLESTEROL (test code = 2220) 41 MG/DL CALC LDL CHOL (test code = 2237) 62 MG/DL RISK RATIO LDL/HDL (test code = 1.51 RATIO 2238) LIPID [id number] 00:00:00 Test Item Value Reference Range Interpretation Comments CHOLESTEROL (test code = 2210) 131 MG/DL TRIGLYCERIDES (test code = 2232) 225 MG/DL HDL CHOLESTEROL (test code = 2220) 41 MG/DL CALC LDL CHOL (test code = 2237) 62 MG/DL RISK RATIO LDL/HDL (test code = 1.51 RATIO 2238) HEMOGLOBIN [id number] 00:00:00 Test Item Value Reference Range Interpretation Comments HEMOGLOBIN A1c (test code = 82976) 8.4 % HEMOGLOBIN [id number] 00:00:00 Test Item Value Reference Range Interpretation Comments HEMOGLOBIN A1c (test code = 00708) 8.4 % HEMOGLOBIN [id number] 00:00:00 Test Item Value Reference Range Interpretation Comments HEMOGLOBIN A1c (test code = 55896) 8.4 % [id number] 00:00:00 Test Item Value Reference Range Interpretation Comments TSH, THIRD GENERATION (test code 1.280 UIU/ML = 2821) [id number] 00:00:00 Test Item Value Reference Range Interpretation Comments TSH, THIRD GENERATION (test code 1.280 UIU/ML = 2821) [id number] 00:00:00 Test Item Value Reference Range Interpretation Comments TSH, THIRD GENERATION (test code 1.280 UIU/ML = 2821) CBC W/AUTO [id number] 00:00:00 Test Item Value Reference Range Interpretation [...] code = 1015) 383 K/UL CBC W/AUTO [id number] 00:00:00 Test Item Value Reference Range Interpretation [...] COUNT (test code = 1015) 383 K/UL ISLET CELL AB [id number] 07:43:00 Test Item Value Reference Range Interpretation Comments ISLET CELL AB Refer to individual AUTOVERIFICATION (test Islet Cell Ab code = 2556) and/or Islet Cell Ab Titer results. POCT-GLUCOSE [id number] 12:34:00 Test Item Value Reference Range Interpretation Comments POC-GLUCOSE METER 208 mg/dL 70-110 H : TESTED A T [facility] 6720 (BEAKER) (test code = [facility], 1538) 08125: Bellows Charger Assembler/Techni john ID = [id number] for BRINAAyanHAYDEE Guy SANTANA POCT-GLUCOSE [id number] 08:26:00 Test Item Value Reference Range Interpretation Comments POC-GLUCOSE METER 145 mg/dL 70-110 H : TESTED A T [facility] 6720 (BEAKER) (test code = [facility] Q-Bot [facility], 1538) 80189: Bellows Charger Assembler/Techni john ID = [id number] for HILARY ALBARRAN [id number] 06:31:00 Test Item Value Reference Range Interpretation Comments MAGNESIUM (BEAKER) (test code = 1.6 mg/dL 1.6-2.6 627) BUN AND [id number] 06:31:00 Test Item Value Reference Range Interpretation [...] APPLICABLE FOR DIALYSIS PATIEN TS. BASIC METABOLIC [id number] 06:31:00 Test Item Value Reference Range Interpretation [...] 0-0 (BEAKER) (test code = 413) POCT-GLUCOSE [id number] 22:02:00 Test Item Value Reference Range Interpretation Comments POC-GLUCOSE METER 214 mg/dL 70-110 H : TESTED A T [facility] 6720 (BEAKER) (test code = [facility], 1538) 71752: Bellows Charger Assembler/Techni john ID = [id number] for KAREN TEIXEIRA POCT-GLUCOSE [id number] 17:34:00 Test Item Value Reference Range Interpretation Comments POC-GLUCOSE METER 178 mg/dL 70-110 H : TESTED A T [facility] 6720 (BEAKER) (test code = [facility], 1538) 71002: Bellows Charger Assembler/Techni john ID = [id number] for BRINAAyanGuy HUBBARD POCT-GLUCOSE [id number] 17:33:00 Test Item Value Reference Range Interpretation Comments POC-GLUCOSE METER 222 mg/dL 70-110 H : TESTED A T [facility] 6720 (BEAKER) (test code = [facility], 1538) 26187: Bellows Charger Assembler/Techni john ID = [id number] for SRIKANTH FIGUEROA POCT-GLUCOSE [id number] 08:07:00 Test Item Value Reference Range Interpretation Comments POC-GLUCOSE METER 174 mg/dL 70-110 H : TESTED A T [facility] 6720 (BEAKER) (test code = [facility], 1538) 76995: Bellows Charger Assembler/Techni john ID = [id number] for SRIKANTH FIGUEROA RAD, CHEST, 1 VIEW, NON [id number] 08:04:00Reason for exam:->CIED ImplantationIs the patient ?->UnknownShould [...] MDReport Verified Date/Time: 04/27/2019 08:04:20 Reading Location: [facility] C013V Neuro Reading Room [id number] 06:48:00 Test Item Value Reference Range Interpretation Comments MAGNESIUM (BEAKER) (test code = 1.7 mg/dL 1.6-2.6 627) BUN AND [id number] 06:48:00 Test Item Value Reference Range Interpretation [...] APPLICABLE FOR DIALYSIS PATIEN TS. BASIC METABOLIC [id number] 06:48:00 Test Item Value Reference Range Interpretation [...] 0-0 (BEAKER) (test code = 413) POCT-GLUCOSE [id number] 21:23:00 Test Item Value Reference Range Interpretation Comments POC-GLUCOSE METER 209 mg/dL 70-110 H : TESTED A T [facility] 6720 (BEAKER) (test code = [facility], 1538) 57621: Bellows Charger Assembler/Techni john ID = [id number] for KAREN TEIXEIRA POCT-GLUCOSE [id number] 18:13:00 Test Item Value Reference Range Interpretation Comments POC-GLUCOSE METER 280 mg/dL 70-110 H : TESTED A T [facility] 6720 (BEAKER) (test code [facility], = 1538) 14903: Bellows Charger Assembler/Techni john ID = [id number] for GEOFF SEVERINO RAD, CHEST, 1 VIEW, NON [id number] 14:36:00Reason for exam:->CIED ImplantationShould this be performed at the bedside?->YesFINAL REPORT INDICATION: CIED Implantation COMPARISON: None TECHNIQUE: Single fr ontal view of the chest. FINDINGS: Lungs and pleura: Lungs are hypoinflated. No effusion.Heart and mediastinum: Normal heart size. Unremarkable mediastinal contours.Osseous structures: No acute abnormality.Other: Pacer device. IMPRESSION: No pneumothorax Signed: Rowena Lay MDReport Verified Date/Time: 04/26/2019 14:36:47 Reading Location: [facility] Reading Room -GLUCOSE [id number] 10:40:00 Test Item Value Reference Range Interpretation Comments POC-GLUCOSE METER 204 mg/dL 70-110 H : TESTED A T [facility] 6720 (BEAKER) (test code = [facility] [place], 1538) 70247: Bellows Charger Assembler/Techni john ID = [id number] for JOURDAN ESCALANTE [id number] 04:42:00 Test Item Value Reference Range Interpretation Comments MAGNESIUM (BEAKER) (test code = 1.8 mg/dL 1.6-2.6 627) BASIC METABOLIC [id number] 04:42:00 Test Item Value Reference Range Interpretation [...] 0-0 (BEAKER) (test code = 413) POCT-GLUCOSE [id number] 21:56:00 Test Item Value Reference Range Interpretation Comments POC-GLUCOSE METER 381 mg/dL 70-110 H : Notified RN/MD: (YOON) (test code = TESTED AT [facility] 6720 1538) [facility], [address]: Bellows Charger Assembler/Techni john ID = [id number] for SONIA MAHER TROPONIN [id number] 17:20:00 Test Item Value Reference Range Interpretation [...] acidosis, acute neurological disease, and persistent tachyarrhythmia.POCT-GLUCOSE [id number] 11:55:00 Test Item Value Reference Range Interpretation Comments POC-GLUCOSE METER 163 mg/dL 70-110 H : TESTED A T [facility] 6720 (YOON) (test code = [facility], 1538) 68894: Bellows Charger Assembler/Techni john ID = [id number] for TELMA MARIN CREATINE KINASE (CK)[id number] 11:26:00 Test Item Value Reference Range Interpretation Comments CREATINE KINASE TOTAL (YOON) (test 63 U/L 29-200 code = 380) TROPONIN [id number] 10:05:00 Test Item Value Reference Range Interpretation Comments TROPONIN I (YOON) (test code = 0.18 ng/mL 0.00-0.03 H [...] acidosis, acute neurological disease, and persistent tachyarrhythmia.POCT-GLUCOSE [id number] 08:18:00 Test Item Value Reference Range Interpretation Comments POC-GLUCOSE METER 163 mg/dL 70-110 H : TESTED A T [facility] 6720 (YOON) (test code = [facility] [place], 1538) 34016: Bellows Charger Assembler/Techni john ID = [id number] for TELMA MARIN TROPONIN [id number] 06:47:00 Test Item Value Reference Range Interpretation Comments TROPONIN I (YOON) (test code = 0.23 ng/mL 0.00-0.03 HH [...] failure, acidosis, acute neurological disease, and persistent tachyarrhythmia.[id number] 06:41:00 Test Item Value Reference Range Interpretation Comments MAGNESIUM (BEAKER) 2.4 mg/dL 1.6-2.6 Specimen slightly (test code = 627) hemolyzed BASIC METABOLIC [id number] 06:41:00 Test Item Value Reference Range Interpretation [...] NOT APPLICABLE FOR DIALYSIS PATIEN TS. LIPID [id number] 06:41:00 Test Item Value Reference Range Interpretation [...] 100-129 Borderline 130-159 High 160-189 Very High [id number] 06:07:00 Test Item Value Reference Range Interpretation [...] = 413) RAD, CHEST, 1 VIEW, NON [id number] 01:00:00Reason for exam:->transvenous PM placementShould this be [...] limits. Additional findings: None available. Signed: Lucy aCmeron Verified Date/Time: 04/25/2019 01:00:56 ENMANUELOmero [id number] 23:56:00 Test Item Value Reference Range Interpretation Comments TROPONIN I (BEAKER) (test code = 0.39 ng/mL 0.00-0.03 HH 397) Troponin I (TnI) [...] failure, acidosis, acute neurological disease, and persistent tachyarrhythmia.[id number] 23:47:00 Test Item Value Reference Range Interpretation Comments MAGNESIUM (BEAKER) 1.6 mg/dL 1.6-2.6 Specimen slightly (test code = 627) hemolyzed [id number] 23:47:00 Test Item Value Reference Range Interpretation Comments PHOSPHORUS (BEAKER) 3.2 mg/dL 2.3-4.7 Specimen slightly (test code = 604) hemolyzed COMPREHENSIVE METABOLIC [id number] 23:47:00 Test Item Value Reference Range Interpretation [...] S NOT APPLICABLE FOR DIALYSIS PATIEN TS. PT/[id number] 23:41:00 Test Item Value Reference Range Interpretation [...] heart valves.Prior to initiating heparinPrior to initiating [id number] 23:41:00 Test Item Value Reference Range Interpretation Comments PARTIAL THROMBOPLASTIN TIME 31.1 seconds 22.5-36.0 (BEAKER) (test code = 760) LACTIC ACID, [id number] 23:41:00 Test Item Value Reference Range Interpretation Comments LACTATE BLOOD VENOUS 1.1 mmol/L 0.5-2.2 Specime n slightly (2) (BEAKER) (test hemolyzed code = 7762) PLATELET [id number] 23:31:00 Test Item Value Reference Range Interpretation Comments PLATELET COUNT (BEAKER) (test 348 K/CU MM 150-450 code = 756) POCT-GLUCOSE [id number] 23:27:00 Test Item Value Reference Range Interpretation Comments POC-GLUCOSE METER 244 mg/dL 70-110 H : TESTED A T [facility] 67[facility] (test code = [facility], 1538) 42446: Bellows Charger Assembler/Techni john ID = [id number] for MARQUITA AGUILERA [id number] 18:39:00 Test Item Value Reference Range Interpretation Comments ACTIVATED CLOTTING TIME 301 sec Refe rence Range: 74-137 (BEAKER) (test code = second s, 441) Baseline/TESTED AT [address] [address] [id number] 18:04:00 Test Item Value Reference Range Interpretation Comments ACTIVATED CLOTTING TIME 252 sec Refe rence Range: 74-137 (BEAKER) (test code = second s, 441) Baseline/TESTED AT [address] [address] 0 [id number] 17:49:00 Test Item Value Reference Range Interpretation Comments ACTIVATED CLOTTING TIME 235 sec Refe rence Range: 74-137 (BEAKER) (test code = second s, 441) Baseline/TESTED AT [address] [address] 0 POCT-GLUCOSE [id number] 13:18:00 Test Item Value Reference Range Interpretation Comments POC-GLUCOSE METER 187 mg/dL 70-110 H : TESTED A T [facility] (test code = [facility], 1538) 96796: Bellows Charger Assembler/Techni john ID = [id number] for ANANDA BLACKMON [id number] 12:52:00 Test Item Value Reference Range Interpretation Comments PARTIAL THROMBOPLASTIN TIME 42.7 seconds 22.5-36.0 H (BEAKER) (test code = 760) POCT-GLUCOSE [id number] 09:59:00 Test Item Value Reference Range Interpretation Comments POC-GLUCOSE METER 252 mg/dL 70-110 H : TESTED A T [facility] 67[address] [facility] (test code = [facility], 1538) 57086: Bellows Charger Assembler/Techni john ID = [id number] for OR ANANDA FERRARA HEMOGLOBIN [id number] 08:35:00 Test Item Value Reference Range Interpretation Comments HEMOGLOBIN A1C (BEAKER) (test code = 11.5 % 4.3-6.1 H 368) [id number] 06:09:00 Test Item Value Reference Range Interpretation Comments PARTIAL THROMBOPLASTIN TIME 39.5 seconds 22.5-36.0 H (BEAKER) (test code = 760) BASIC METABOLIC [id number] 23:24:00 Test Item Value Reference Range Interpretation [...] S NOT APPLICABLE FOR DIALYSIS PATIEN TS. [id number] 23:15:00 Test Item Value Reference Range Interpretation Comments PARTIAL THROMBOPLASTIN TIME 28.7 seconds 22.5-36.0 (BEAKER) (test code = 760) Prior to initiating heparinPROTHROMBIN TIME/[id number] 23:14:00 Test Item Value Reference Range Interpretation [...] per sliding scaleCBC W/PLT COUNT & AUTO [id number] 23:10:00 Test Item Value Reference Range Interpretation [...] PERCENT (BEAKER) (test code = 2801) POCT-GLUCOSE [id number] 22:59:00 Test Item Value Reference Range Interpretation Comments POC-GLUCOSE METER 194 mg/dL 70-110 H : TESTED A T [facility] 6720 (BEAKER) (test code = [facility] [place], 1538) 70323: Bellows Charger Assembler/Techni john ID = [id number] for Mary Kate Mccoy
[2022-10-31] MEDS ORDERED: IPRATROPIUM BROM 0.5MG/2.5ML ONE (19:33)
[2022-10-31] MEDS ORDERED: LEVALBUTEROL 1.25 MG/3 ML NEB ONE (19:33)
[2022-10-31 19:45] LABS: Absolute Lymphocytes (CBC) 2.2 K/uL (0.7-4.9); Hematocrit 34.1 % (36.0-45.0); Lymphocytes % 12.5 % (15.3-44.8); MCV 82.9 fL (80-100); RBC Red Blood Cell Count 4.12 M/uL (3.86-4.86)
[2022-10-31 20:03] LABS: SARS-CoV-2 Antigen Rapid Res Negative (Negative)
[2022-10-31 20:04] LABS: Troponin High Sensitivity 10.8 pg/mL (<58.9)
[2022-10-31 20:06] LABS: Potassium 2.4 mEq/L (3.5-5.1)
--- NOTE | 2022-10-31 20:22 | RAD REPORT ---
[facility] CLINICAL HISTORY: DYSPNEA COMPARISON: Chest Single View dated 05/04/2022; Chest Single View dated 02/05/2022; Chest Single View dated 02/27/2020; Chest Pa And Lat (2 Views) dated 05/11/2019 TECHNIQUE: Portable AP view of the chest. FINDINGS: Left peripheral basal airspace opacity, worsened since prior exam. No pneumothorax or eff usion. The cardiomediastinal contours are unremarkable. Left chest wall pacemaker in place. Scoliosis limits evaluation. IMPRESSION: Left peripheral basal airspace opacity, worsened since prior exam, may relate to atelect asis or pneumonia.
[2022-10-31] MEDS ORDERED: POTASSIUM CL SA 10 MEQ TAB PO ONE (20:23)
--- NOTE | 2022-10-31 21:28 | RAD REPORT ---
EXAM DESCRIPTION: CT - Chest For Pe Angio - 10/31/2022 9:00 pm CLINICAL HISTORY: DYSPNEA COMPARISON: Chest For Pe Angio dated 05/05/2022; Chest For Pe Angio dated 03/13/2020 TECHNIQUE: Thin axial CT images of the chest were obtained following administration of 100 mL Isovue 370 IV contrast. Multiplanar reconstructions, and maximum intensity projection reconstructions were generated and reviewed. Exam utilizes a protocol for optimal evaluation of pulmonary arterial tree. All CT scans are performed using dose optimization technique as appropriate and may include automated exposure control or mA/KV adjustment according to patient size. FINDINGS: Pulmonary arteries are normal. No emboli or other suspicious finding. No acute or signific ant aorta findings. No mass or infiltrate in the lung parenchyma. Mild left pleural effusion. No pleural thickening or ri ght pleural effusion. No pneumothorax. Mild pericardial effusion. No abnormal mediastinal or hilar masses or lymphadenopathy seen. No chest wall mass or abnormal axill iary lymphadenopathy. IMPRESSION: No evidence of acute central pulmonary emboli. Mild pericardial effusion. Mild left pleural effusion. No other acute pulmonary process.
[2022-10-31] MEDS ORDERED: NA CHLORIDE 0.9% 500 ML ONE (21:31)
[2022-10-31] MEDS ORDERED: KCL 20 MEQ/100 mL IVPB 200 ML IV ONE (21:31)
--- NOTE | 2022-10-31 21:32 | EDPHYS ---
Physician Documentation [facility] Name: Blanca Estrada Age: 62 yrs Sex: Female : 1960 Arrival Date: 10/31/2022 Time: 18:53 Bed 4 Private MD: ED Physician uDy Capps HPI: 10/31 19:49 This 62 yrs old Female presents to ER via Ambulatory with complaints of shortness of kb breath. 19:49 The patient has shortness of breath at rest. Onset: The symptoms/episode began/occurred kb 1 week(s) ago. Duration: The symptoms are continuous. The patient's shortness of breath is aggravated by exertion, is alleviated by nothing. Associated signs and symptoms: Pertinent positives: non-productive cough. Severity of symptoms: At their worst the symptoms were moderate in the emergency department the symptoms are unchanged. The patient has not experienced similar symptoms in the past. The patient has not recently seen a physician. Pt reports shortness of breath that started after stress test one week ago. Feels like she isn't getting air into right side. . Historical: - Allergies: 19:17 Albuterol; kl 19:17 Morphine; kl - PMHx: 19:17 CAD; Clots in the past; CVA; Diabetes - IDDM; Hyperlipidemia; Hypertension; Myocardial kl infarction; - PSHx: 19:17 Brain; pacemaker; Stented artery; kl - Immunization history:: Adult Immunizations up to date. - Social history:: Smoking status: Patient reports the use of cigarette tobacco products, smokes one pack cigarettes per day. ROS: 19:49 Constitutional: Negative for fever, chills, and weight loss. kb 19:49 Respiratory: Positive for dyspnea on exertion, shortness of breath. 19:49 All other systems are negative. Exam: 19:49 Constitutional: This is a well developed, well nourished patient who is awake, alert, kb and in no acute distress. Head/Face: Normocephalic, atraumatic. ENT: Moist Mucous membranes Cardiovascular: Regular rate and rhythm with a normal S1 and S2. No gallops, murmurs, or rubs. No pulse deficits. Abdomen/GI: Soft, non-tender. No distention Skin: Warm, dry with normal turgor. Normal color. MS/ Extremity: Pulses equal, no cyanosis. Neurovascular intact. Full, normal range of motion. Neuro: Awake and alert, GCS 15, oriented to person, place, time, and situation. Moves all extremities. Normal gait. 19:49 Respiratory: the patient does not display signs of respiratory distress, Respirations: normal, Breath sounds: wheezing: expiratory that is moderate, is heard in the right middle lobe and right posterior middle lobe, clears after cough. Vital Signs: 19:13 BP 127 / 55; Pulse 81; Resp 24; Temp 98.7(TE); Pulse Ox 95% ; Weight 72.57 kg (R); kl Height 5 ft. 8 in. ; Pain 0/10; 21:12 BP 171 / 111; Pulse 82; Resp 18 S; Pulse Ox 94% on R/A; as6 21:28 BP 175 / 72; as6 19:13 Body Mass Index 24.33 (72.57 kg, 172.72 cm) kl 19:13 Pain Scale: Adult kl MDM: 19:16 Patient medically screened. kb 19:51 Differential diagnosis: Bronchitis Chronic Obstructive Pulmonary Disease pneumonia, kb pulmonary edema, Pulmonary Embolism. Data reviewed: vital signs, nurses notes. 21:32 Consideration of Admission/Observation Patient was admitted/placed on observation. kb Management of patient was discussed with the following: Hospitalist: PAKO Nance. Counseling: I had a detailed discussion with the patient and/or guardian regarding: the historical points, exam findings, and any diagnostic results supporting the discharge/admit diagnosis, lab results, radiology results, the need for further work-up and treatment in the hospital. 10/31 19:16 Order name: Basic Metabolic Panel 10/31 19:16 Order name: CBC with Diff; Complete Time: 19:54 10/31 19:16 Order name: D-Dimer; Complete Time: 20:03 10/31 19:16 Order name: Magnesium 10/31 19:16 Order name: NT PRO-BNP 10/31 19:16 Order name: Troponin HS 10/31 19:16 Order name: Flu; Complete Time: 20:08 10/31 19:16 Order name: SARS RAPID; Complete Time: 20:03 10/31 20:25 Order name: Blood Culture Adult (2) 10/31 20:25 Order name: Lactate w/ 2H reflex if indic.; Complete Time: 21:20 10/31 21:51 Order name: Lipase 10/31 21:51 Order name: Urine W/Microscopic (UAM) 10/31 21:53 Order name: LFT's 10/31 19:16 Order name: XRAY Chest (1 view); Complete Time: 20:24 kb 10/31 20:03 Order name: CT Chest For PE Angio; Complete Time: 21:29 kb 10/31 21:51 Order name: US Abdomen Limited: RUQ 10/31 19:16 Order name: EKG; Complete Time: 19:17 kb 10/31 19:16 Order name: Cardiac monitoring; Complete Time: 19:34 kb 10/31 19:16 Order name: EKG - Nurse/Tech; Complete Time: 19:34 kb 10/31 19:16 Order name: IV Saline Lock; Complete Time: 19:34 kb 10/31 19:16 Order name: Labs collected and sent; Complete Time: 19:34 kb 10/31 19:16 Order name: O2 Per Protocol; Complete Time: 19:34 kb 10/31 19:16 Order name: O2 Sat Monitoring; Complete Time: 19:34 kb Administered Medications: 19:40 Drug: Levalbuterol Inhalation 1.25 mg Route: Inhalation; as6 22:02 Follow up: Response: No adverse reaction as6 19:41 Drug: Ipratropium Inhalation Aerosol 0.5 mg Route: Inhalation; as6 22:02 Follow up: Response: No adverse reaction as6 20:16 Drug: Potassium Chloride PO 40 mEq Route: PO; as6 22:02 Follow up: Response: No adverse reaction as6 21:28 Drug: Potassium Chloride IV 20 mEq Route: IV; Rate: calculated rate; Site: right as6 antecubital; 22:27 Follow up: Response: No adverse reaction; IV Status: Infusion continued upon admission; as6 IV Intake: 25ml 21:49 Drug: Rocephin IV 1 grams Route: IV; Rate: calculated rate; Site: right antecubital; as6 22:03 Follow up: Response: No adverse reaction; IV Status: Completed infusion; IV Intake: [id number] 22:29 Not Given (administered on medsurgg): Potassium Chloride IV 20 mEq IV at calculated as6 rate once; administer over 1-2 hours Disposition Summary: 10/31/22 21:32 Hospitalization Ordered Hospitalization Status: Observation kb Provider: Radu Blankenship Location: Telemetry/MedSurg (observation) kb Condition: Stable kb Problem: new kb Symptoms: are unchanged kb Bed/Room Type: Standard kb Room Assignment: 215(10/31/22 22:21) mw Diagnosis - Pneumonia, unspecified organism kb - Dyspnea kb - Hypokalemia kb Forms: - Medication Reconciliation Form kb - SBAR form kb Signatures: Dispatcher [employer] EDLora Tejeda FNP-C FNP-Maria Luisa Brown RN RN Shelli Cooper RN RN Goyo Park FNP-C FNP-Froylan Doran RN RN as6 Corrections: (The following items were deleted from the chart) 22:00 21:32 kb mw 22:21 22:00 218 mw mw
--- NOTE | 2022-10-31 21:32 | ER ---
Nurse's Notes [facility] Name: Balnca Estrada Age: 62 yrs Sex: Female : 1960 Arrival Date: 10/31/2022 Time: 18:53 Bed 4 Private MD: Diagnosis: Pneumonia, unspecified organism;Dyspnea;Hypokalemia Presentation: 10/31 19:13 Chief complaint: Patient states: SOB since Monday stress test done last week has kl blockage in right leg and left carotid. Coronavirus screen: Vaccine status: Patient reports receiving the 2nd dose of the covid vaccine. Ebola Screen: Patient negative for fever greater than or equal to 101.5 degrees Fahrenheit, and additional compatible Ebola Virus Disease symptoms. Initial Sepsis Screen: Does the patient meet any 2 criteria? No. Patient's initial sepsis screen is negative. Does the patient have a suspected source of infection? Yes: Productive cough/pneumonia. Risk Assessment: Do you want to hurt yourself or someone else? Patient reports no desire to harm self or others. Onset of symptoms was October 24, 2022. 19:13 Method Of Arrival: Ambulatory 19:13 Acuity: WILMAR 3 kl Triage Assessment: 19:18 General: Appears ill, Behavior is calm, cooperative. Pain: Denies pain. Respiratory: kl Reports shortness of breath cough that is labored breathing Breath sounds are diminished in left posterior upper lobe and left posterior lower lobe. Historical: - Allergies: 19:17 Albuterol; kl 19:17 Morphine; kl - PMHx: 19:17 CAD; Clots in the past; CVA; Diabetes - IDDM; Hyperlipidemia; Hypertension; Myocardial kl infarction; - PSHx: 19:17 Brain; pacemaker; Stented artery; kl - Immunization history:: Adult Immunizations up to date. - Social history:: Smoking status: Patient reports the use of cigarette tobacco products, smokes one pack cigarettes per day. Screenin:42 [facility] ED Fall Risk Assessment (Adult) Score/Fall Risk Level 0 - 2 = Low Risk. Abuse as6 screen: Denies threats or abuse. Denies injuries from another. Nutritional screening: No deficits noted. Tuberculosis screening: No symptoms or risk factors identified. Assessment: 19:41 General: Appears in no apparent distress. as6 19:41 General: Behavior is calm, cooperative. Pain: Denies pain. Neuro: Level of as6 Consciousness is awake, alert, obeys commands, Oriented to person, place, time, situation. Cardiovascular: Reports shortness of breath, Denies chest pain. Respiratory: Reports shortness of breath at rest on exertion Respiratory effort is even, unlabored, Respiratory pattern is regular, symmetrical. GI: No deficits noted. No signs and/or symptoms were reported involving the gastrointestinal system. : No deficits noted. No signs and/or symptoms were reported regarding the genitourinary system. EENT: No deficits noted. No signs and/or symptoms were reported regarding the EENT system. Derm: Skin is intact, is healthy with good turgor. 21:12 Reassessment: Patient appears in no apparent distress at this time. Respiratory: as6 Reports cough that is. Vital Signs: 19:13 BP 127 / 55; Pulse 81; Resp 24; Temp 98.7(TE); Pulse Ox 95% ; Weight 72.57 kg (R); kl Height 5 ft. 8 in. ; Pain 0/10; 21:12 BP 171 / 111; Pulse 82; Resp 18 S; Pulse Ox 94% on R/A; as6 21:28 BP 175 / 72; as6 19:13 Body Mass Index 24.33 (72.57 kg, 172.72 cm) kl 19:13 Pain Scale: Adult kl ED Course: 19:13 Patient arrived in ED. iw 19:16 L[facility] Faustin [facility]-C [facility]. kb 19:16 Duy Capps MD is Attending Physician. kb 19:17 Triage completed. kl 19:19 Froylan Lin, RN is Primary Nurse. as6 19:40 Arm band placed on. as6 19:40 Inserted saline lock: 20 gauge in right antecubital area, using aseptic technique. as6 Blood collected. 19:42 Bed in low position. Call light in reach. Side rails up X 1. Client placed on as6 continuous cardiac and pulse oximetry monitoring. NIBP monitoring applied. Warm blanket given. 19:57 XRAY Chest (1 view) In Process Unspecified. EDMS 20:06 Notified Nurse Practitioner and/or Physician Educational Recruiter of a critical lab result(s), kl Potassium 2.4. 20:58 Lactate w/ 2H reflex if indic. Sent. bc6 20:58 Blood Culture Adult (2) Sent. bc6 20:58 Inserted saline lock: 22 gauge in left antecubital area, using aseptic technique. bc6 21:02 CT Chest For PE Angio In Process Unspecified. EDMS 21:32 Radu Blankenship MD is Hospitalizing Provider. kb 22:27 No provider procedures requiring assistance completed. Patient admitted, IV remains in as6 place. Administered Medications: 19:40 Drug: Levalbuterol Inhalation 1.25 mg Route: Inhalation; as6 22:02 Follow up: Response: No adverse reaction as6 19:41 Drug: Ipratropium Inhalation Aerosol 0.5 mg Route: Inhalation; as6 22:02 Follow up: Response: No adverse reaction as6 20:16 Drug: Potassium Chloride PO 40 mEq Route: PO; as6 22:02 Follow up: Response: No adverse reaction as6 21:28 Drug: Potassium Chloride IV 20 mEq Route: IV; Rate: calculated rate; Site: right as6 antecubital; 22:27 Follow up: Response: No adverse reaction; IV Status: Infusion continued upon admission; as6 IV Intake: 25ml 21:49 Drug: Rocephin IV 1 grams Route: IV; Rate: calculated rate; Site: right antecubital; as6 22:03 Follow up: Response: No adverse reaction; IV Status: Completed infusion; IV Intake: [id number] 22:29 Not Given (administered on medsurgg): Potassium Chloride IV 20 mEq IV at calculated as6 rate once; administer over 1-2 hours Medication: 19:42 VIS not applicable for this client. as6 Intake: 22:03 IV: 10ml; Total: 10ml. as6 22:27 IV: 25ml; Total: 35ml. as6 Outcome: 21:32 Decision to Hospitalize by Provider. kb 22:27 Admitted to Med/surg accompanied by tech, via wheelchair, room 215, with chart, Report as6 called to Kalia OLEA 22:27 Condition: stable 22:27 Instructed on the need for admit. 22:29 Patient left the ED. as6 Signatures: Dispatcher [employer] EDMA Lora Faustin, Maria Luisa Marshall RN RN kl Williams, Irene, RN RN iw Slawson, Ashby, RN RN as6 Vandana Singh bc6
[2022-10-31] MEDS ORDERED: CEFTRIAXONE 1000 MG/VIAL ONE (21:45)
--- NOTE | 2022-10-31 22:27 | P.HP ---
Certification for Inpatient Patient admitted to: Observation With expected LOS: <2 Midnights Patient will require the following post-hospital care: None Practitioner: I am a practitioner with admitting privileges, knowledge of patient current condition, hospital course, and medical plan of care. Services: Services provided to patient in accordance with Admission requirements found in Title 42 Section 412.3 of the Code of Federal Regulations Patient History Date of Service: 10/31/22 Reason for admission: Dyspnea History of Present Illness: 64-year-old female with history of CAD, PAD, tobacco abuse, insulin-dependent diabetes, hypertension, hyperlipidemia presents the emergency department chief complaint of shortness of breath. She reports increasing shortness of breath over the course of the last 1 week ever since she had a stress test done with her striper spray gun which she reports was normal. She is scheduled to have vascular procedures on her right lower extremity for "occlusion" next week. She was evaluated here in the emergency department labs were significant for leukocytosis white blood cell count is 17.9, potassium was 2.4 glucose 194 D- dimer 1959 BNP 352 chest x-ray showed left peripheral basilar air space opacity worsened since prior exam may relate to atelectasis or pneumonia. CT PE protocol was performed which showed mild pericardial effusion, mild left pleural effusion. Lactate was 1.1. Patient was given antibiotics Rocephin/Zithromax, potassium was replaced in ED. ED provider wishes to admit for further evaluatio n and management of dyspnea, suspected pneumonia. Allergies No Known Allergies Allergy (Unverified 04/22/17 23:42) Home Medications: Aspirin Chewable [Aspirin Chewable*] 81 mg PO DAILY 02/05/22 Atorvastatin Calcium [Lipitor] 80 mg PO DAILY 02/05/22 Carvedilol [Coreg] 25 mg PO BID 02/05/22 Hydralazine HCl 100 mg PO TID 02/05/22 Lisinopril [Zestril] 40 mg PO DAILY 02/05/22 Pantoprazole [Protonix Tab*] 40 mg PO DAILY 02/05/22 Escitalopram [Lexapro*] 20 mg PO DAILY 05/05/22 Mirtazapine 7.5 mg PO DAILY 05/05/22 Oseltamivir [Tamiflu*] 75 mg PO BID 3 Days #6 cap 05/06/22 predniSONE [Prednisone*] 20 mg PO BIDWM 4 Days #8 tab 05/06/22 - Past Medical/Surgical History Diabetic: No -: DVT -: CAD -: Tobacco abuse -: RI -: DM -: stent x1 -: CVA during labor -: back surgery -: pacemaker 2019 Psychosocial/ Personal History: Patient lives at home with grandchildren. - Family History Mother -: Heart disease, Diabetes, Cancer - Social History Smoking Status: Current every day smoker Counseled patient to stop smoking for: less than 10 minutes Smoking therapy provided: No Alcohol use: No CD- Drugs: No Caffeine use: No Place of Residence: Home Review of Systems 10-point ROS is otherwise unremarkable General: Chills Respiratory: Cough, Shortness of Breath, SOB with Excertion, Wheezing Physical Examination - Physical Exam General: Alert, In no apparent distress, Oriented x3 HEENT: Atraumatic, PERRLA, Mucous membr. moist/pink, EOMI, Sclerae nonicteric Neck: Supple, 2+ carotid pulse no bruit, No LAD, Without JVD or thyroid abnormality Respiratory: Expiratory wheezes Cardiovascular: Regular rate/rhythm, Normal S1 S2 Capillary refill: <2 Seconds Gastrointestinal: Normal bowel sounds, No tenderness Musculoskeletal: No tenderness Integumentary: No rashes Neurological: Normal speech, Normal strength at 5/5 x4 extr, Normal tone, Normal affect Lymphatics: No axilla or inguinal lymphadenopathy - Studies Laboratory Data (last 24 hrs) 10/31/22 21:53: Total Bilirubin Cancelled, AST Cancelled, ALT Cancelled, Alkaline Phosphatase Cancelled 10/31/22 21:51: Lipase Cancelled 10/31/22 19:36: WBC 17.90 H, Hgb 11.1 L, Hct 34.1 L, Plt Count 433 H 10/31/22 19:36: Sodium 136, Potassium 2.4 L*, BUN 5 L, Creatinine 0.72, Glucose 194 H, Magnesium 2.0 Microbiology Data (last 24 hrs): 10/31/22 19:36 Nasopharnyx Influenza Type A Antigen Screen - Final 10/31/22 19:36 Nasopharnyx Influenza Type B Antigen Screen - Final Assessment and Plan - Plan Assessment: Sepsis secondary to left-sided pneumonia Diabetes mellitus type 2insulin-dependent with hyperglycemia PAD/CAD Hypertension Hyperlipidemia GERD Plan: Sepsis secondary to left-sided pneumonia SIRS criteria present including leukocytosis, tachypnea. Source of infection with left-sided pneumonia on chest x-ray. Given Rocephin/Zithromax as antibiotics lactate is less than 2. No signs of endorgan damage. Continue antibiotics. Blood cultures obtained. Diabetes mellitus type 2insulin-dependent with hyperglycemia ACHS Accu-Chek, sliding scale insulin. PAD/CAD Scheduled for outpatient procedure for right lower extremity PAD. Lower extremity is warm, no acute ischemia present. Hypertension Hyperlipidemia GERD Continue home medications. DVT PPX: Lovenox Code status: Full Discharge Plan: Home Plan to discharge in: 24 Hours - Advance Directives Does patient have a Living Will: No Does patient have a Durable POA for Healthcare: No - Code Status/Comfort Care Code Status Assessed: Yes (Full code) Critical Care: No Time Spent Managing Pts Care (In Minutes): 55
--- NOTE | 2022-10-31 22:31 | RAD REPORT ---
EXAM DESCRIPTION: US - Abdomen Exam Limited - 10/31/2022 10:17 pm CLINICAL HISTORY: ABD PAIN COMPARISON: No comparisons TECHNIQUE: Sonographic grayscale and color flow images of the right upper abdominal quadrant were obtained. FINDINGS: The gallbladder demonstrates no gallstones. Layering echogenic sludge. No pericholecystic fluid or gallbladder wall thickening. The common bile duct is normal measuring less than 1 mm. The liver demonstrates no findings of intrahepatic biliary dilatation. IMPRESSION: Gallbladder sludge, without evidence of cholelithiasis or acute cholecystitis.
[2022-10-31] MEDS ORDERED: ACETAMINOPHEN 500 MG TAB PO PRN (22:39)
[2022-10-31] MEDS ORDERED: HYDROCODONE/APAP 5/325 MG TAB PO PRN (22:39)
[2022-10-31] MEDS ORDERED: ONDANSETRON 4 MG/2 ML VIAL IV PRN (22:39)
[2022-10-31 22:44] LABS: Albumin 2.7 g/dL (3.4-5.0); Bilirubin Direct 0.1 mg/dL (0-0.2); Bilirubin Indirect, Calculated 0.4 mg/dL (0.2-0.8); Bilirubin Total 0.5 mg/dL (0.2-1.0); Protein, Total 7.4 g/dL (6.4-8.2)
[2022-10-31 22:45] LABS: Specific Gravity > 1.030 (1.005-1.030); Urine Bacteria <20 /HPF (<20); Urine Bilirubin NEGATIVE (Negative); Urine Blood Negative (Negative); Urine Clarity Turbid (Clear); Urine Color Light-Yellow (Yellow); Urine Glucose NEGATIVE (Negative); Urine Mucus Slight /HPF (None Seen); Urine Protein TRACE (Negative); Urine RBC <5 /HPF (None Seen); Urine Urobilinogen 1+ (Normal); Urine pH 7.5 (5.0-7.0)
[2022-10-31 23:10] VITALS: BMI 24.3
[2022-10-31] MEDS: ATORVASTATIN 80 MG TAB PO SCH (23:49)
[2022-10-31] MEDS: carvediloL 25 MG TAB PO SCH (23:50)
[2022-10-31] MEDS: ESCITALOPRAM 20 MG TAB PO SCH (23:50)
[2022-11-01 01:34] LABS: Potassium 2.6 mEq/L (3.5-5.1)
[2022-11-01] MEDS ORDERED: POTASSIUM CL SA 10 MEQ TAB PO ONE (03:01)
[2022-11-01 03:40] LABS: Hematocrit 31.9 % (36.0-45.0); Lymphocytes % 13.6 % (15.3-44.8); MCV 82.3 fL (80-100); RBC Red Blood Cell Count 3.88 M/uL (3.86-4.86)
[2022-11-01 04:10] LABS: Magnesium 1.9 mg/dL (1.6-2.4); Potassium 2.8 mEq/L (3.5-5.1); Thyroid Stimulating Hormone 0.589 uIU/mL (0.358-3.740); Troponin High Sensitivity 14.3 pg/mL (<58.9)
[2022-11-01] MEDS ORDERED: NA CHLORIDE 0.9% 250 ML ONE (04:18)
[2022-11-01] MEDS ORDERED: ALBUTEROL 2.5 MG/3 ML NEB SOL NEB PRN (05:26)
[2022-11-01] MEDS: INSULIN -REGULAR HUMAN 50 UNIT/0.5 ML ML SQ SCH ×4 (07:30→20:01)
[2022-11-01] MEDS ORDERED: PNEUMOCOCCAL VACCINE 0.5 ML IMVAC ONE (08:00)
[2022-11-01] MEDS: ENOXAPARIN 40 MG/0.4 ML SQ SCH (08:07)
[2022-11-01] MEDS: CEFTRIAXONE 1,000 MG in NA CHLORIDE 0.9% 50 ML IVPB SCH (08:07)
[2022-11-01] MEDS: AZITHROMYCIN IV 500 MG in NA CHLORIDE 0.9% 250 ML IVPB SCH (08:07)
[2022-11-01] MEDS: carvediloL 25 MG TAB PO SCH ×2 (08:08→20:00)
[2022-11-01] MEDS: lisinopriL 20 MG TAB PO SCH (08:08)
[2022-11-01] MEDS: BENZONATATE 100 MG CAP PO PRN (08:08)
[2022-11-01] MEDS: PANTOPRAZOLE 40MG TABLET PO SCH (08:08)
[2022-11-01] MEDS: ESCITALOPRAM 20 MG TAB PO SCH (08:08)
[2022-11-01] MEDS: HYDRALAZINE HCL 25 MG TABLET PO SCH ×3 (08:08→20:00)
[2022-11-01] MEDS: ASPIRIN 81 MG CHEWABLE TABLET PO SCH (08:08)
--- NOTE | 2022-11-01 12:02 | RAD REPORT ---
EXAM DESCRIPTION: US - Extrem Venous W Compress Wyatt - 11/01/2022 11:09 am CLINICAL HISTORY: Elevated D-dimer COMPARISON: None. TECHNIQUE: Real-time sonographic evaluation of the bilateral lower extremity deep venous systems was performed. FINDINGS: Normal compressibility, flow augmentation, phasic flow and spontaneous flow is identified in both the left and right lower extremity deep venous systems. No intraluminal filling defects seen. IMPRESSION: No DVT in either lower extremity.
--- NOTE | 2022-11-01 17:06 | P.PN ---
Subjective Date of Service: 11/01/22 Chief Complaint: Dyspnea No acute events since admission. She reports that she has significant shortness of breath with exertion. She reports a productive cough. She denies any chest pain, palpitations, abdominal pain, nausea, or vomiting this morning. Review of Systems 10-point ROS is otherwise unremarkable Respiratory: Cough, Shortness of Breath Physical Examination - Vital Signs Temperature: 97.9 F Blood Pressure: 113/55 Pulse: 67 Respirations: 20 Pulse Ox (%): 96 - Physical Exam General: Alert, In no apparent distress, Oriented x3 HEENT: Atraumatic, Mucous membr. moist/pink, Sclerae nonicteric Respiratory: Diminished, Rhonchi/gurgles (scattered) Cardiovascular: No edema, Regular rate/rhythm, Normal S1 S2, No gallops, No rubs, No murmurs Gastrointestinal: Normal bowel sounds, Soft and benign, Non-distended, No tenderness, No rebound, No guarding Musculoskeletal: No clubbing Integumentary: No rashes Neurological: Normal speech, Normal affect - Studies Laboratory Data (last 24 hrs) 10/31/22 21:53: Total Bilirubin Cancelled, AST Cancelled, ALT Cancelled, Alkaline Phosphatase Cancelled 10/31/22 21:51: Lipase Cancelled 10/31/22 19:36: WBC 17.90 H, Hgb 11.1 L, Hct 34.1 L, Plt Count 433 H 10/31/22 19:36: Sodium 136, Potassium 2.4 L*, BUN 5 L, Creatinine 0.72, Glucose 194 H, Magnesium 2.0, Total Bilirubin 0.5, AST 15, ALT 14, Alkaline Phosphatase 105, Lipase 14 Microbiology Data (last 24 hrs): 10/31/22 19:36 Nasopharnyx Influenza Type A Antigen Screen - Final 10/31/22 19:36 Nasopharnyx Influenza Type B Antigen Screen - Final Assessment And Plan - Plan # Sepsis likely secondary to Left-Sided Community-Acquired Pneumonia She met criteria based on RR > 20 breaths/min and WBC > 12,000, and the suspected source is pneumonia. - Sepsis order set was initiated - Chest x-ray = "left peripheral basal airspace opacity, worsened since prior exam, may relate to atelectasis or pneumonia." - Initial Lactate was 1.2 - Blood cultures drawn before antibiotics were given - Broad spectrum antibiotics started: Ceftriaxone + Azithromycin - In regards to fluids: - 30 mL/kg of IV fluids was not administered given SBP > 90, MAP > 65, lactic acid < 4 # Hyperglycemia in Type II Diabetes Mellitus - Correction scale insulin # Elevated D-Dimer - D-Dimer = 1958 - Bilateral lower extremity Doppler = "no DVT in either lower extremity." - CT chest angiogram = "no evidence of acute central pulmonary emboli. Mild pericardial effusion. Mild left pleural effusion. No other acute pulmonary process." # Gallbladder Sludge - US abdomen = "gallbladder sludge, without evidence of cholelithiasis or acute cholecystitis" - Reportedly had abdominal pain on presentation. Denies abdominal pain this morning. - General Surgery consulted - recommendations appreciated # Coronary Artery Disease s/p PCI # Peripheral Artery Disease # Hypertension # Hyperlipidemia - Continue home aspirin, atorvastatin, carvedilol, hydralazine, lisinopril # Gastroesophageal Reflux Disease - Continue home pantoprazole # Tobacco Use Disorder - Tobacco cessation counseling Radu Blankenship M.D.
[2022-11-01] MEDS: ATORVASTATIN 80 MG TAB PO SCH (20:00)
[2022-11-02 00:43] VITALS: O2SAT 95
[2022-11-02 03:54] LABS: Absolute Lymphocytes (CBC) 2.5 K/uL (0.7-4.9); Hematocrit 29.9 % (36.0-45.0); MCV 82.5 fL (80-100); MPV 7.1 fL (7.6-11.3); RBC Red Blood Cell Count 3.62 M/uL (3.86-4.86)
[2022-11-02 04:03] LABS: Magnesium 1.9 mg/dL (1.6-2.4); Potassium 2.7 mEq/L (3.5-5.1)
[2022-11-02] MEDS ORDERED: KCL 20 MEQ/100 mL IVPB 20 MEQ/100 ML BAG IV SCH ×2 (05:00→08:00)
[2022-11-02] MEDS ORDERED: NA CHLORIDE 0.9% 250 ML ONE (05:40)
[2022-11-02] MEDS: INSULIN -REGULAR HUMAN 50 UNIT/0.5 ML ML SQ SCH ×3 (07:30→16:30)
[2022-11-02 08:35] LABS: Hematocrit 31.9 % (36.0-45.0)
[2022-11-02] MEDS: ENOXAPARIN 40 MG/0.4 ML SQ SCH (08:37)
[2022-11-02] MEDS: PANTOPRAZOLE 40MG TABLET PO SCH (08:38)
[2022-11-02] MEDS: CEFTRIAXONE 1,000 MG in NA CHLORIDE 0.9% 50 ML IVPB SCH ×2 (08:38→08:45)
[2022-11-02] MEDS: lisinopriL 20 MG TAB PO SCH (08:38)
[2022-11-02] MEDS: ESCITALOPRAM 20 MG TAB PO SCH (08:38)
[2022-11-02] MEDS: ASPIRIN 81 MG CHEWABLE TABLET PO SCH (08:38)
[2022-11-02] MEDS: carvediloL 25 MG TAB PO SCH (08:38)
[2022-11-02] MEDS: HYDRALAZINE HCL 25 MG TABLET PO SCH ×2 (08:38→13:21)
[2022-11-02] MEDS: BENZONATATE 100 MG CAP PO PRN (08:38)
[2022-11-02] MEDS: AZITHROMYCIN IV 500 MG in NA CHLORIDE 0.9% 250 ML IVPB SCH ×2 (08:40→08:46)
[2022-11-02 08:56] LABS: Albumin 2.7 g/dL (3.4-5.0); Bilirubin Total 0.3 mg/dL (0.2-1.0); Potassium 2.9 mEq/L (3.5-5.1); Protein, Total 6.9 g/dL (6.4-8.2)
[2022-11-02] MEDS ORDERED: POTASSIUM CL SA 10 MEQ TAB PO ONE ×3 (09:00→16:06)
--- NOTE | 2022-11-02 15:13 | RAD REPORT ---
EXAM DESCRIPTION: NM - Hepatobiliary System W/ Ph - 11/02/2022 2:07 pm CLINICAL HISTORY: Right upper quadrant pain COMPARISON: 10/31/2022 abdominal ultrasound. TECHNIQUE: The patient was administered approximately 6.6 mCi Tc99m Choletee. Imaging of the right u pper quadrant was performed initially for up to 80 minutes. The patient was administered synthetic CC K over a slow 30 minute infusion. TEDDY measurements were obtained of the gallbladder and an ejection f raction calculated. Synthetic CCK dosage was 1.5ugm. FINDINGS: There is homogeneous uptake of radiopharmaceutical throughout the liver. There is no delay in visualization of the biliary tree or duodenum. Gallbladder was visualized, after some delay, approximately at minutes 65. The calculated ejection fr action is within normal, 46%. The patient reported no pain prior to the procedure and no symptoms during or subsequent to synthetic CCK infusion. IMPRESSION: Patent cystic duct and patent sphincter of Oddi. No delay in visualization of the biliar y tree, or duodenum. Some delay in visualization of the gallbladder, nonspecific, could reflect mild functional gallbladde r abnormality. Ejection fraction is normal, 46%. Patient reported no pre-procedure pain, and no pain during or subsequent to synthetic CCK infusion.
[2022-11-02 15:41] LABS: Potassium 3.5 mEq/L (3.5-5.1)
--- NOTE | 2022-11-02 16:17 | P.DS ---
Admission Date: 10/31/22 Discharge Date: 11/02/22 Disposition: ROUTINE DISCHARGE Discharge Condition: GOOD Reason for Admission: Dyspnea Consultations: 1. General Surgery Hospital Course: DIAGNOSES: # Sepsis likely secondary to Left-Sided Community-Acquired Pneumonia # Hyperglycemia in Type II Diabetes Mellitus # Elevated D-Dimer # Gallbladder Sludge # Coronary Artery Disease s/p PCI # Peripheral Artery Disease # Hypertension # Hyperlipidemia # Gastroesophageal Reflux Disease # Tobacco Use Disorder HOSPITAL COURSE: Ms. Blanca Estrada is a 62 year old female with a past medical history significant for type 2 diabetes mellitus, coronary artery disease s/p PCI, peripheral artery disease, hypertension, hyperlipidemia, gastroesophageal reflux disease, and tobacco use disorder who was admitted to the [facility] on 10/31/2022 for shortness of breath. She was admitted to the Medicine service. Upon further evaluation, she was found to have to have sepsis secondary to pneumonia. Her chest x-ray revealed, "left peripheral basal airspace opacity, worsened since prior exam, may relate to atelectasis or pneumonia." Her d-dimer was 1,959. Her bilateral lower extremity Doppler revealed, "no DVT in either lower extremity." Her CT chest angiogram revealed, "no evidence of acute central pulmonary emboli. Mild pericardial effusion. Mild left pleural effusion. No other acute pulmonary process." She was treated with IV antibiotics and, over the course of the hospitalization, her symptoms improved significantly. Of note, she reported abdominal pain on admission. An abdominal ultrasound revealed, "gallbladder sludge, without evidence of cholelithiasis or acute cholecystitis." General Surgery was consulted and she was evaluated by Dr. Irene. He recommended a HIDA scan, which revealed, "patent cystic duct and patent sphincter of Oddi. No delay in visualization of the biliary tree, or duodenum. Some delay in visualization of the gallbladder, nonspecific, could reflect mild functional gallbladder abnormality. Ejection fraction is normal, 46%. Patient reported no pre-procedure pain, and no pain during or subsequent to synthetic CCK infusion." She is no longer reporting abdominal pain and General Surgery has cleared her for discharge with outpatient follow-up. On 11/02/2022, she was seen on morning rounds and deemed medically stable for discharge. She was discharged with instructions to schedule follow-up appointments with her PCP (Dr. Paz) and with General Surgery (Dr. Irene). She was provided prescriptions for cefdinir, benzonatate, and doxycycline. She was given the opportunity to ask questions and reported no further questions. Furthermore, all questions were answered to the best of my ability. A copy of this discharge summary will be sent to the above providers to facilitate continuity of care. Today, I personally spent 25 minutes with her case, of which greater than 50% of the time was spent in patient education, counseling, and coordination of care as described above. - Physical Exam General: Alert, In no apparent distress, Oriented x3 HEENT: Atraumatic, Mucous membr. moist/pink, Sclerae nonicteric Respiratory: Diminished, clear to auscultation without wheezes, rhonchi, or rales Cardiovascular: No edema, Regular rate/rhythm, No murmurs Gastrointestinal: Normal bowel sounds, Soft, Non-distended, No tenderness Musculoskeletal: No clubbing Integumentary: No rashes Neurological: Normal speech, Normal affect Vital Signs/Physical Exam: Temp Pulse Resp BP Pulse Ox 98.6 F 78 14 115/48 L 91 11/02/22 12:00 11/02/22 12:00 11/02/22 12:00 11/02/22 12:00 11/02/22 12:00 Laboratory Data at Discharge: WBC 11.90 thou/uL (4.3-10.9) H 11/02/22 02:21 Hgb 10.4 g/dL (12.0-15.0) L 11/02/22 08:15 Hct 31.9 % (36.0-45.0) L 11/02/22 08:15 Plt Count 413 thou/uL (152-406) H 11/02/22 02:21 Sodium 140 mEq/L (136-145) 11/02/22 15:05 Potassium 3.5 mEq/L (3.5-5.1) D 11/02/22 15:05 BUN 6 mg/dL (7-18) L 11/02/22 15:05 Creatinine 0.65 mg/dL (0.55-1.02) 11/02/22 15:05 Glucose 151 mg/dL (74-106) H 11/02/22 15:05 Magnesium 1.9 mg/dL (1.6-2.4) 11/02/22 02:21 Total Bilirubin 0.3 mg/dL (0.2-1.0) 11/02/22 08:15 AST 11 U/L (15-37) L 11/02/22 08:15 ALT 14 U/L (13-56) 11/02/22 08:15 Alkaline Phosphatase 100 U/L (45-117) 11/02/22 08:15 Lipase Cancelled 10/31/22 21:51 Home Medications: Aspirin Chewable [Aspirin Chewable*] 81 mg PO DAILY 02/05/22 Atorvastatin Calcium [Lipitor] 80 mg PO DAILY 02/05/22 Carvedilol [Coreg] 25 mg PO BID 02/05/22 Hydralazine HCl 100 mg PO TID 02/05/22 Lisinopril [Zestril] 40 mg PO DAILY 02/05/22 Pantoprazole [Protonix Tab*] 40 mg PO DAILY 02/05/22 Escitalopram [Lexapro*] 20 mg PO DAILY 05/05/22 Benzonatate [Tessalon Perle*] 100 mg PO TID PRN 7 Days #20 cap 11/02/22 Cefdinir [Cefdinir*] 300 mg PO BID 7 Days #14 cap 11/02/22 Doxycycline Hyclate 100 mg PO BID 7 Days #14 tab 11/02/22 New Medications: Cefdinir [Cefdinir*] 300 mg PO BID 7 Days #14 cap Doxycycline Hyclate 100 mg PO BID 7 Days #14 tab Benzonatate [Tessalon Perle*] 100 mg PO TID PRN 7 Days #20 cap PRN Reason: Cough Physician Discharge Instructions: 1. Please call and schedule a follow-up appointment with your PCP (Dr. Paz) in 3-5 days - Please schedule a repeat chest x-ray in 3-4 weeks to make sure your pneumonia has fully healed 2. Please call and schedule a follow-up appointment with General Surgery (Dr. Irene) in 5-7 days - Please have him follow-up on your gallbladder Followup: Usha Paz MD [Primary Care Provider] - John Irene MD [ACTIVE - CAN ADMIT] - Time spent managing pt's care (in minutes): 25
[2022-11-02 16:31] VITALS: BP 143/56; TEMP 98.1
--- NOTE | 2022-11-02 18:47 | CON ---
Date of Consultation: 11/01/2022 Brief History Of Present Illness: The patient is a 62-year-old female with a history of coronary art brie disease, peripheral arterial disease, tobacco use, diabetes, hypertension, hyperlipidemia, who pr esented to the emergency department on 10/31 with chief complaint of shortness of breath. She had in creased shortness of breath the week prior to her admission and she did have a stress test performed recently. She came to the emergency room with a presumptive diagnosis of atelectasis versus pneumoni a. CT PE protocol showed a mild pericardial effusion, mild left pleural effusion. She was treated w ith antibiotics and admitted for further management on 10/31. During her workup, it was noted that s he had cholelithiasis and as such I was consulted to see the patient. In addition, she had intermitt ent abdominal pain on occasion. Past Medical History: DVT, coronary artery disease, tobacco use, myocardial infarction, diabetes, CV A during labor. Past Surgical History: Includes coronary artery stent, back surgery, pacemaker in 2019. Allergies: NO KNOWN DRUG ALLERGIES. Home Medications: Include aspirin, Lipitor, Coreg, hydralazine, Zestril, Protonix, Lexapro, mirtazap ine, Tamiflu, and prednisone. Family History: Significant for heart disease and diabetes in her mother. Social History: She lives at home with her grandchildren. She smokes tobacco every day for a 40+ pa ck year history. She denies alcohol or recreational drug use. Review of Systems: Ten-point review of systems other than HPI, denies other than cough, shortness of breath with exertio n and wheezing. Physical Examination: General: At the time of my examination; she is awake, alert, oriented. Psychiatric: She is appropriate, conversive. HEENT: She is normocephalic. Sclerae anicteric. Mucous membranes moist. Oropharynx clear. Neck: Supple without JVD. Chest: Expansion and excursion. Cardiovascular: Regular rate and rhythm. Pulmonary: Decreased breath sounds bilaterally. Abdomen: Soft, nontender, nondistended. No rebound. No guarding. No focal peritonitis. Extremities: No clubbing, cyanosis, or edema. Skin: Warm and dry. Vital Signs: At the time of my examination were a temperature of 97.9, pulse 67, respiratory rate wa s 20, SpO2 96% on room air, blood pressure 132/55. Laboratory Data: Revealed a white blood cell count of 14.8, hemoglobin 10.5, hematocrit 31.9, platel et count was 400. Her D-dimer was 1959. Chemistry showed a sodium of 139, potassium was 3.5, chlori de 105, carbon dioxide is 30, BUN 4, creatinine 0.6, glucose 175, calcium was 8.2, hemoglobin A1c is 7.4. She had imaging performed, which included a CTA on 10/31, officially read as no evidence of acu te central pulmonary emboli, mild pericardial effusion with mild left pleural effusion. She addition ally had an abdominal ultrasound on 10/31/2022, officially read as gallbladder sludge without evidenc e of cholelithiasis or acute cholecystitis. Assessment And Plan: This is a 62-year-old female, who comes in with signs and symptoms consistent w ith pneumonia and gallbladder sludge on imaging finding. 1.Continue medical management for her medical issues including respiratory. 2.Respiratory support with oxygen supplementation and treatment as indicated with medical management . 3.With respect to her gallbladder, she has had intermittent episodes of abdominal pain, which she is uncertain of the etiology. She is currently asymptomatic during my examination and has been so for approximately 12-14 hours. She is tolerating diet during my examination and denies any other acute t riggers to her pain. 4.We will order HIDA scan to rule out any gallbladder pathology. As she is currently asymptomatic, I have extracted her that she can follow up with me as an outpatient if this is negative. I have exp lained the risks, benefits, alternatives of the above stated plan. The patient agrees to proceed as indicated. Thank you for this interesting consult. TROY/MIAN Voice ID: [id number] Report ID: [id number]
--- NOTE | 2022-11-02 19:15 | EKG ---
Test Date: 2022-10-31 Test Time: 19:27:59 Surg Tech: KIANA MEASUREMENT RESULTS: Intervals: Rate: 75 TX: 140 QRSD: 96 QT: 422 QTc: 471 [place]: P: 46 TX: 140 QRS: 67 T: 80 INTERPRETIVE STATEMENTS: Normal sinus rhythm Minimal voltage criteria for LVH, may be normal variant Nonspecific ST abnormality Abnormal ECG Compared to ECG 05/04/2022 19:28:29 Left ventricular hypertrophy now present ST (T wave) deviation now present Electronically Signed On 11-02-22 19:10:58 CDT by Sin Atkinson
--- NOTE | 2022-11-03 06:59 | ECHO ---
HEIGHT: 5 ft 8 in WEIGHT: 160 lb 0 oz DATE OF STUDY: 11/01/[address]: Goyo Park NP 2-DIMENSIONAL: YES M.MODE: YES DOPPLER: YES COLOR FLOW: YES TDS: PORTABLE: YES DEFINITY: BUBBLE STUDY: DIAGNOSIS: MILD PERICARDIAL EFFUSION, DYSPNEA CARDIAC HISTORY: CATHERIZATION: YES SURGERY: NO PROSTHETIC VALVE: NO PACEMAKER: YES MEASUREMENTS (cm) DIASTOLIC (NORMALS) SYSTOLIC (NORMALS) IVSd 1.1 (0.6-1.2) LA Diam 2.8 (1.9-4.0) LVEF 66% LVIDd 3.7 (3.5-5.7) LVIDs 2.4 (2.0-3.5) %FS 36% LVPWd 1.2 (0.6-1.2) Ao Diam 2.4 (2.0-3.7) 2 DIMENSIONAL ASSESSMENT: RIGHT ATRIUM: NORMAL LEFT ATRIUM: NORMAL RIGHT VENTRICLE: PACEMAKER WIRE LEFT VENTRICLE: NORMAL TRICUSPID VALVE: MILD TRICUSPID REGURGITATION MITRAL VALVE: MILD MITRAL REGURGITATION PULMONIC VALVE: NORMAL AORTIC VALVE: NORMAL PERICARDIAL EFFUSION: NONE AORTIC ROOT: NORMAL LEFT VENTRICULAR WALL MOTION: NORMAL (HYPERDYNAMIC LEFT VENTRICLE) DOPPLER/COLOR FLOW: SEE BELOW COMMENTS: 1. NORMAL LEFT VENTRICULAR EJECTION FRACTION GREATER THAN 60% (HYPERDYNAMIC) 2. NORMAL WALL MOTION 3. MILD MITRAL REGURGITATION 4. MILD TRICUSPID REGURGITATION 5. NO PERICARDIAL EFFUSION IS SEEN 6. DILATED IINFERIOR VENA CAVA - 2.4 [employer] TECHNOLOGIST: JOSHUA MCGHEE
== END 2022-11-02 17:02 | disposition home or self-care (01) ==
LOC: ER 18:53 → ERHOLD 21:54 → 2ND 22:20
PROVIDERS: ADMIT Internal Medicine; ATTEND Internal Medicine
DX: A41.9 Sepsis, unspecified organism (principal); J18.9 Pneumonia, unspecified organism; R06.00 Dyspnea, unspecified; I25.10 Atherosclerotic heart disease of native coronary artery without angina pectoris; I73.9 Peripheral vascular disease, unspecified; F17.210 Nicotine dependence, cigarettes, uncomplicated; E11.65 Type 2 diabetes mellitus with hyperglycemia; I10 Essential (primary) hypertension; E78.5 Hyperlipidemia, unspecified; K21.9 Gastro-esophageal reflux disease without esophagitis; I25.2 Old myocardial infarction; K82.8 Other specified diseases of gallbladder; R79.1 Abnormal coagulation profile; Z79.4 Long term (current) use of insulin; Z88.6 Allergy status to analgesic agent; Z86.73 Personal history of transient ischemic attack (TIA), and cerebral infarction without residual deficits
CPT/HCPCS: 96365; 93005; 93306; 87040 ×2; 85025 ×3; 81001; 80048 ×4; 36415 ×2; 83735 ×3; 84132 ×2; 82947; 85379; 80076; 83605; 84443; 85018; 85014; 83036; 84484 ×3; 84439; 83690; 80053; 83880; 87804 ×2; 71275; 71045; 93970; 76705; 94010; 78227; 96375; 99285; 87811; Q9967; J1815 ×2; J3480 ×2; J7614; J7644; J1650 ×2; J2405; J7050 ×4; J7040; J0696 ×3; J2805; A9537; G0378

== ENCOUNTER → 2023-05-24 | Emergency (ER) | payer MEDICARE, OTHER ==
[~2023-05-24] MED LIST: ACETAMINOPHEN 325 MG TABLET ONE; CIPROFLOXACIN 400mg IV 400 MG/200 ML BAG IV ONE; DIPHENHYDRAMINE 50 MG/ML VIAL ONE; KCL 20 MEQ/100 mL IVPB 100 ML IV ONE; METRONIDAZOLE 500mg IVPB 500 MG/100 ML BAG IV ONE; NA CHLORIDE 0.9% 1,000 ML ONE; NA CHLORIDE 0.9% 100 ML ONE; NA CHLORIDE 0.9% 250 ML ONE; PANTOPRAZOLE 40 MG INJ ONE; TRANEXAMIC ACID 1,000 MG/10 ML VIAL IV ONE
[2023-05-24 03:04] LABS: Absolute Lymphocytes (CBC) 2.7 K/uL (0.7-4.9); Hematocrit 24.8 % (36.0-45.0); Lymphocytes % 16.9 % (15.3-44.8); MCV 82.1 fL (80-100); MPV 7.4 fL (7.6-11.3); Platelets 378 thou/uL (152-406); RBC Red Blood Cell Count 3.02 M/uL (3.86-4.86)
[2023-05-24 03:07] LABS: Protime INR 1.18
[2023-05-24 03:21] LABS: AST/SGOT 11 U/L (15-37); Albumin 2.5 g/dL (3.4-5.0); Alkaline Phosphatase 93 U/L (45-117); BUN Blood Urea Nitrogen 13 mg/dL (7-18); Bicarbonate 28 mEq/L (21-32); Bilirubin Direct 0.1 mg/dL (0-0.2); Bilirubin Indirect, Calculated 0.2 mg/dL (0.2-0.8); Bilirubin Total 0.3 mg/dL (0.2-1.0); Glomerular Filtration Rate 74 ml/min (=/>90); Glucose Level 242 mg/dL (74-106); Lipase 18 U/L (13-75); Magnesium 1.7 mg/dL (1.6-2.4); NT PRO-BNP 136 pg/mL (<125); Protein, Total 5.8 g/dL (6.4-8.2); Sodium Level 139 mEq/L (136-145); Troponin High Sensitivity 29.2 pg/mL (<58.9)
--- NOTE | 2023-05-24 03:21 | ER ---
Nurse's Notes [facility] Name: Blanca Estrada Age: 63 yrs Sex: Female : 1960 Arrival Date: 05/24/2023 Time: 01:52 Bed 4 Private MD: Diagnosis: Syncope;GI Bleed/ Gastrointestinal hemorrhage, unspecified;Diarrhea, unspecified;Hypokalemia;Anemia, unspecified;Pleural effusion, not elsewhere classified-left Presentation: 05/24 01:50 Chief complaint: Patient states: "I started having rectal bleeding yesterday morning jw7 with bright red blood and clots. I was going to the bathroom, fell and hit the left side of my head and body on a bench, I remember falling but don't remember much after that, I was on the phone with a friend when I fell, she called 911". 01:50 Coronavirus screen: At this time, the client does not indicate any symptoms associated jw7 with coronavirus-19. Ebola Screen: No symptoms or risks identified at this time. Initial Sepsis Screen: Does the patient meet any 2 criteria? No. Patient's initial sepsis screen is negative. Does the patient have a suspected source of infection? No. Patient's initial sepsis screen is negative. Risk Assessment: Do you want to hurt yourself or someone else? Patient reports no desire to harm self or others. Onset of symptoms was May 23, 2023. Mechanism of Injury: Fall from standing position. 01:50 Method Of Arrival: EMS: [facility] 7 01:50 Acuity: WILMAR 2 jw7 Triage Assessment: 01:50 General: Appears in no apparent distress. comfortable, Behavior is calm, cooperative. jw7 Pain: Complains of pain in Pressure in Lower Abd and Pelvis Pain does not radiate. Pain currently is 0 out of 10 on a pain scale. Quality of pain is described as pressure, Pain began 1 day ago. Is continuous. EENT: No deficits noted. No signs and/or symptoms were reported regarding the EENT system. Neuro: Level of Consciousness is awake, alert, obeys commands, Oriented to person, place, time, situation. Cardiovascular: Capillary refill < 3 seconds Clubbing of nail beds is absent JVD is absent Patient's skin is warm and dry. Respiratory: Airway is patent Trachea midline Respiratory effort is even, unlabored, Respiratory pattern is regular, symmetrical. GI: Abdomen is round non-distended, Last BM was May 24, 2023. : No deficits noted. No signs and/or symptoms were reported regarding the genitourinary system. Derm: Skin is healthy with good turgor, Skin is dry, Skin is normal, Skin temperature is warm. Musculoskeletal: Circulation, motion, and sensation intact. Range of motion: intact in all extremities. Historical: - Allergies: 02:06 Albuterol; jw7 02:06 Morphine; jw7 - Home Meds: 02:06 atorvastatin Oral [Active]; hydralazine Oral [Active]; lisinopril oral [Active]; jw7 pantoprazole Oral [Active]; clopidogrel oral [Active]; aspirin 81 mg Oral capsule [Active]; Antidepressants X 2 [Active]; - PMHx: 02:06 CAD; Clots in the past; CVA; Diabetes - IDDM; Hyperlipidemia; Hypertension; Myocardial jw7 infarction; Anxiety; - PSHx: 02:06 Brain; pacemaker; Stented artery; Back; jw7 - Immunization history:: Adult Immunizations up to date, Client reports receiving the 2nd dose of the Covid vaccine, Pneumococcal vaccine is up to date, Flu vaccine is up to date. - Social history:: Smoking status: Patient reports the use of cigarette tobacco products, smokes two packs cigarettes per day. Patient/guardian denies using alcohol, street drugs, IV drugs. Screenin:14 [facility] ED Fall Risk Assessment (Adult) History of falling in the last 3 months, jw7 including since admission Yes- physiologic fall (2 pts) Confusion or Disorientation No (0 pts) Intoxicated or Sedated No (0 pts) Impaired Gait Yes (1 pt) Mobility Assist Device Used No (0 pt) Altered Elimination Yes (1 pt) Score/Fall Risk Level 3 or more points = High Risk Oriented to surroundings, Maintained a safe environment, Educated pt \\T\\ family on fall prevention, incl call for assistance when getting out of bed, Assessed \\T\\ reinforced patient's understanding of fall precautions, Provided non-skid footwear. Abuse screen: Denies threats or abuse. Denies injuries from another. Nutritional screening: No deficits noted. Tuberculosis screening: No symptoms or risk factors identified. Assessment: 02:00 General: see triage assessment. jw7 03:00 Reassessment: Patient appears in no apparent distress at this time. No changes from jw7 previously documented assessment. Patient and/or family updated on plan of care and expected duration. Pain level reassessed. Patient is alert, oriented x 3, equal unlabored respirations, skin warm/dry/pink. 04:00 Reassessment: Patient appears in no apparent distress at this time. No changes from jw7 previously documented assessment. Patient and/or family updated on plan of care and expected duration. Pain level reassessed. Patient is alert, oriented x 3, equal unlabored respirations, skin warm/dry/pink. 05:00 Reassessment: Patient appears in no apparent distress at this time. No changes from jw7 previously documented assessment. Patient and/or family updated on plan of care and expected duration. Pain level reassessed. Patient is alert, oriented x 3, equal unlabored respirations, skin warm/dry/pink. 05:30 General: Blood transfusion Consent signed. jw7 05:35 General: First unit of Blood Transfusion started . jw7 06:00 General: second unit of blood transfusion started . jw7 06:00 Reassessment: Patient appears in no apparent distress at this time. No changes from jw7 previously documented assessment. Patient and/or family updated on plan of care and expected duration. Pain level reassessed. Patient is alert, oriented x 3, equal unlabored respirations, skin warm/dry/pink. Vital Signs: 01:50 BP 125 / 70; Pulse 70; Resp 20 S; Temp 97.8(O); Pulse Ox 95% on R/A; Weight 68.04 kg; jw7 Height 5 ft. 8 in. ; Pain 0/10; 02:30 BP 86 / 47; Pulse 71; Resp 23; Pulse Ox 94% on R/A; rv1 03:15 BP 124 / 55; Pulse 71; Resp 20; Pulse Ox 97% on R/A; rv1 04:00 BP 128 / 57; Pulse 69; Resp 16; Pulse Ox 91% on R/A; rv1 05:00 BP 111 / 50; Pulse 73; Resp 18; Pulse Ox 93% on R/A; rv1 06:00 BP 135 / 66; Pulse 70; Resp 21 S; Temp 97.7; Pulse Ox 97% on 2 lpm NC; jw7 06:35 BP 141 / 62; Pulse 70; Resp 21 S; Pulse Ox 98% on 2 lpm NC; jw7 01:50 Body Mass Index 22.81 (68.04 kg, 172.72 cm) jw7 01:50 Pain Scale: Adult jw7 ED Course: 01:50 Arm band placed on. jw7 01:55 Maintain EMS IV. Dressing intact. Good blood return noted. Site clean \\T\\ dry. Gauge \\T\\ jj 7 site: 20G RIGHT AC. 01:57 Patient arrived in ED. pf1 01:57 Duy Anne PA is PHCP. cp 01:57 Duy Capps MD is Attending Physician. cp 02:06 Triage completed. jw7 02:14 Patient has correct armband on for positive identification. Placed in gown. Bed in low jw7 position. Call light in reach. Side rails up X2. 02:20 Inserted saline lock: 20 gauge in left forearm, using aseptic technique. jj7 02:29 Type And Screen Sent. rv1 02:29 Lactate w/ 2H reflex if indic. Sent. rv1 02:29 Lipase Sent. rv1 02:29 Ptt, Activated Sent. rv1 02:29 Basic Metabolic Panel Sent. rv1 02:29 CBC with Diff Sent. rv1 02:29 LFT's Sent. rv1 02:29 Magnesium Sent. rv1 02:29 NT PRO-BNP Sent. rv1 02:29 PT-INR Sent. rv1 02:29 Troponin HS Sent. rv1 02:31 Blood Culture Adult (2) Sent. pf1 02:36 XRAY Chest (1 view) In Process Unspecified. EDMS 03:21 Initiated transfer with Bere at [facility]. rv1 03:26 CT Traumagram (Head C Spine CAP wo con) In Process Unspecified. EDMS 03:29 [facility] declined due to capacity, advised [facility] has beds rv1 available but patient does not want to go to [place]. Provider notifed. 03:31 Initiated transfer with Erika at [facility]. rv1 03:54 [facility] declined due to capacity. rv1 04:06 Initiated at [facility] but was declined due to capacity. rv1 04:09 Initiated at [facility] but was declined due to capacity. rv1 04:10 Dr. Jefry re-initiated with [facility] for [place]. rv1 05:02 Pt accepted to [facility] by Dr. Salter to Rm A404. rv1 05:14 Called EMS for transfer truck, ETA 8AM due to Staffing Issues. [facility] gave rv1 30 min ETA. 05:30 Provided Education on: Blood Transfusion, need for transfer. jw7 05:43 No provider procedures requiring assistance completed. jj7 05:52 Patient transferred, IV remains in place. jw7 Administered Medications: 02:21 Drug: NS 0.9% IV 1000 ml IV at 1 bolus Per protocol; 1000 mL bolus Route: IV; Rate: 1 jw7 bolus; Site: left forearm; 06:25 Follow up: Response: No adverse reaction; IV Status: Completed infusion; IV Intake: jw7 1000ml 02:37 Drug: Pantoprazole IVP 40 mg IVP once Route: IVP; Site: right antecubital; jw7 06:25 Follow up: Response: No adverse reaction jw7 02:38 Drug: metroNIDAZOLE IVPB 500 mg 100 ml IVPB at 200 ml/hr once over 30 mins Volume: 100 jw7 ml; Route: IVPB; Rate: 200 ml/hr; Infused Over: 30 mins; Site: right antecubital; 06:26 Follow up: Response: No adverse reaction; IV Status: Completed infusion; IV Intake: jw7 100ml 02:59 Drug: Ciprofloxacin IVPB 400 mg 200 ml IVPB once over 60 mins Volume: 200 ml; Route: jw7 IVPB; Infused Over: 60 mins; Site: left forearm; 06:26 Follow up: Response: No adverse reaction; IV Status: Completed infusion; IV Intake: jw7 200ml 04:49 Drug: Potassium Chloride IV 20 mEq IV at calculated rate once; administer over 1-2 jw7 hours Route: IV; Rate: calculated rate; Site: right antecubital; 06:31 Follow up: Response: No adverse reaction; IV Status: Infusion continued upon transfer; jw7 IV Intake: 75ml 04:53 Drug: tranexamic acid 1000 mg IV at 1000 mg/hr once; administer at a rate not to exceed jw7 100 mg per min Route: IV; Rate: 1000 mg/hr; Site: left forearm; 06:26 Follow up: Response: No adverse reaction; IV Status: Completed infusion; IV Intake: jw7 100ml 06:00 Drug: diphenhydrAMINE IVP 25 mg IVP once Route: IVP; Site: right antecubital; jw7 06:31 Follow up: Response: No adverse reaction jw7 06:00 Drug: Acetaminophen PO 650 mg PO once Route: PO; jw7 06:32 Follow up: Response: No adverse reaction jw7 Medication: 02:15 VIS not applicable for this client. jw7 Intake: 06:25 IV: 1000ml; Total: 1000ml. jw7 06:26 IV: 200ml; Total: 1200ml. jw7 06:26 IV: 100ml; Total: 1300ml. jw7 06:26 IV: 100ml; Total: 1400ml. jw7 06:31 IV: 75ml; Total: 1475ml. jw7 Outcome: 03:21 ER care complete, transfer ordered by . cp 05:26 Transferred to [facility], Note: PT GOING TO ROOM A404.REPORT GIVEN jj7 TO ANNIE OLEA 05:51 Condition: stable jw7 05:51 Instructed on the need for transfer, Demonstrated understanding of instructions, 06:35 Patient left the ED. jw7 Signatures: Dispatcher [employer] EDMS Duy Anne PA PA cp Waits, Jodi, RN RN jw7 Johnson, Juwairiyah, RN RN jj7 Finley, Pamala, RN RN pf1 Mayra Wild rv1 Corrections: (The following items were deleted from the chart) 04:21 03:54 [facility] declined due to capacity. rv1 rv1 05:25 04:00 BP 111 / 50; Pulse 73bpm; Resp 18bpm; Pulse Ox 93% RA; rv1 rv1 05:48 01:55 General: see triage assessment. jw7 jw7 06:33 05:35 General: Blood Transfusion started at 0535. jw7 jw7
--- NOTE | 2023-05-24 03:21 | EDPHYS ---
Physician Documentation [facility] Name: Blanca Estrada Age: 63 yrs Sex: Female : 1960 Arrival Date: 05/24/2023 Time: 01:52 Bed 4 Private MD: ED Physician Duy Capps HPI: 05/24 02:05 This 63 yrs old Female presents to ER via EMS with complaints of Rectal Bleeding, cp Syncope. 02:05 The patient presents to the emergency department with rectal bleeding, a moderate cp amount, bright red blood with bowel movement, with multiple such episodes. Onset: The symptoms/episode began/occurred yesterday. Associated signs and symptoms: Pertinent positives: chest pain, diarrhea, dizziness when standing, syncope, Pertinent negatives: fever, shortness of breath, vomiting. Severity of symptoms: in the emergency department the symptoms are unchanged despite home interventions. Historical: - Allergies: 02:06 Albuterol; jw7 02:06 Morphine; jw7 - Home Meds: 02:06 atorvastatin Oral [Active]; hydralazine Oral [Active]; lisinopril oral [Active]; jw7 pantoprazole Oral [Active]; clopidogrel oral [Active]; aspirin 81 mg Oral capsule [Active]; Antidepressants X 2 [Active]; - PMHx: 02:06 CAD; Clots in the past; CVA; Diabetes - IDDM; Hyperlipidemia; Hypertension; Myocardial jw7 infarction; Anxiety; - PSHx: 02:06 Brain; pacemaker; Stented artery; Back; jw7 - Immunization history:: Adult Immunizations up to date, Client reports receiving the 2nd dose of the Covid vaccine, Pneumococcal vaccine is up to date, Flu vaccine is up to date. - Social history:: Smoking status: Patient reports the use of cigarette tobacco products, smokes two packs cigarettes per day. Patient/guardian denies using alcohol, street drugs, IV drugs. ROS: 02:07 Constitutional: Positive for poor PO intake, Negative for fever, cp 02:07 Eyes: Negative for injury, pain, redness, and discharge, cp 02:07 Cardiovascular: Positive for chest pain, 02:07 Respiratory: Negative for cough, shortness of breath, wheezing, 02:07 Abdomen/GI: Positive for diarrhea, rectal bleeding, Negative for abdominal pain, black/tarry stool, Exam: 02:04 ECG was reviewed by the Attending Physician. cp 02:10 Constitutional: The patient appears in no acute distress, alert, awake, cp non-diaphoretic, non-toxic, well developed, well nourished, uncomfortable, 02:10 Head/Face: Normocephalic, atraumatic. cp 02:10 Eyes: Periorbital structures: appear normal, Pupils: equal, round, and reactive to cp light and accomodation, Extraocular movements: Conjunctiva: normal, no exudate, no injection, Sclera: no appreciated abnormality, Lids and lashes: appear normal, bilaterally, 02:10 ENT: External ear(s): are unremarkable, Nose: is normal, Mouth: Lips: moist, Oral cp mucosa: moist, Posterior pharynx: Airway: no evidence of obstruction, patent, 02:10 Neck: ROM/movement: is normal, is supple, no meningismus, no nuchal rigidity, 02:10 Chest/axilla: Inspection: normal, 02:10 Cardiovascular: Rate: normal, Rhythm: regular, Edema: is not appreciated, JVD: is not appreciated, 02:10 Respiratory: the patient does not display signs of respiratory distress, Respirations: normal, no use of accessory muscles, no retractions, labored breathing, is not present, Breath sounds: are clear throughout, no decreased breath sounds, no stridor, no wheezing, 02:10 Abdomen/GI: Inspection: abdomen appears normal, Bowel sounds: active, all quadrants, Palpation: soft, in all quadrants, mild abdominal tenderness, in the right lower quadrant and left lower quadrant, rebound tenderness, is not appreciated, involuntary guarding, is not appreciated, Rectal exam: Stool: grossly bloody, 02:10 Back: CVA tenderness, is absent, 02:10 Neuro: Orientation: to person, place \T\ time. Mentation: is normal, Motor: moves all fours, strength is normal, Sensation: no obvious gross deficits, Vital Signs: 01:50 BP 125 / 70; Pulse 70; Resp 20 S; Temp 97.8(O); Pulse Ox 95% on R/A; Weight 68.04 kg; jw7 Height 5 ft. 8 in. ; Pain 0/10; 02:30 BP 86 / 47; Pulse 71; Resp 23; Pulse Ox 94% on R/A; rv1 03:15 BP 124 / 55; Pulse 71; Resp 20; Pulse Ox 97% on R/A; rv1 04:00 BP 128 / 57; Pulse 69; Resp 16; Pulse Ox 91% on R/A; rv1 05:00 BP 111 / 50; Pulse 73; Resp 18; Pulse Ox 93% on R/A; rv1 06:00 BP 135 / 66; Pulse 70; Resp 21 S; Temp 97.7; Pulse Ox 97% on 2 lpm NC; jw7 06:35 BP 141 / 62; Pulse 70; Resp 21 S; Pulse Ox 98% on 2 lpm NC; jw7 01:50 Body Mass Index 22.81 (68.04 kg, 172.72 cm) jw7 01:50 Pain Scale: Adult jw7 Procedures: 05:37 Peripheral line: by aseptic technique a peripheral line was placed in the left external coral jugular vein. MDM: 01:58 Patient medically screened. cp 02:30 Differential diagnosis: diverticulitis, colitis, sepsis, uti, trauma. cp 04:00 Data reviewed: vital signs, nurses notes, lab test result(s), EKG, radiologic studies, cp CT scan, plain films. 04:00 Independent interpretation of the following test(s) in the Emergency Department EKG: cp See my EKG interpretation above. Care significantly affected by the following chronic conditions: Diabetes, Hypertension. Counseling: I had a detailed discussion with the patient and/or guardian regarding the historical points, exam findings, and any diagnostic results supporting the discharge/admit diagnosis, lab results, radiology results, the need to transfer to another facility, [facility] does not immediately have the required specialist. 04:55 Management of patient was discussed with the following: Hospitalist: DR Mora \T\[facility] who will accept patient as transfer after consult. 05/24 02:03 Order name: Type And Screen 05/24 02:00 Order name: Basic Metabolic Panel; Complete Time: 03:23 cp 05/24 03:24 Interpretation: Normal except: K 2.4; GLUC 242; GFR 74; CA 7.9. 05/24 02:00 Order name: CBC with Diff; Complete Time: 03:17 05/24 03:17 Interpretation: Normal except: WBC 15.90; RBC 3.02; HGB 8.4; HCT 24.8; RDW 16.4; MPV cp 7.4; EOSINOPHIL % 5.1; NEUT A 11.5; EOSA 0.8. 05/24 02:00 Order name: LFT's; Complete Time: 03:23 cp 05/24 03:24 Interpretation: Normal except: AST 11; ALT < 10; TP 5.8; ALB 2.5; A/G 0.8. cp 05/24 02:00 Order name: Magnesium; Complete Time: 03:23 cp 05/24 02:00 Order name: NT PRO-BNP; Complete Time: 03:23 cp 05/24 02:00 Order name: PT-INR; Complete Time: 03:17 cp 05/24 02:00 Order name: Troponin HS; Complete Time: 03:23 cp 05/24 02:00 Order name: Ptt, Activated; Complete Time: 03:17 cp 05/24 02:00 Order name: Lipase; Complete Time: 03:23 cp 05/24 02:00 Order name: Blood Culture Adult (2) cp 05/24 02:00 Order name: Lactate w/ 2H reflex if indic.; Complete Time: 03:56 cp 05/24 03:57 Interpretation: Reviewed. cp 05/24 02:36 Order name: Packed RBC Leukored EDMS 05/24 03:58 Order name: Ova And Parasites cp 05/24 03:58 Order name: Rotavirus Antigen cp 05/24 03:58 Order name: Stool Culture cp 05/24 03:58 Order name: CDIFF cp 05/24 05:08 Order name: ABO/RH no charge; Complete Time: 05:16 EDMS 05/24 02:00 Order name: XRAY Chest (1 view) cp 05/24 02:08 Order name: CT Traumagram (Head C Spine CAP wo con) cp 05/24 02:00 Order name: EKG; Complete Time: 02:00 cp 05/24 02:00 Order name: Cardiac monitoring; Complete Time: 02:22 cp 05/24 02:00 Order name: EKG - Nurse/Tech; Complete Time: 02:22 cp 05/24 02:00 Order name: IV Saline Lock; Complete Time: 02:22 cp 05/24 02:00 Order name: Labs collected and sent; Complete Time: 02:22 cp 05/24 02:00 Order name: O2 Per Protocol; Complete Time: 02:22 cp 05/24 02:00 Order name: O2 Sat Monitoring; Complete Time: 02:22 cp 05/24 02:00 Order name: IV; Complete Time: 02:22 cp 05/24 02:20 Order name: IV Saline Lock - Large Bore; Complete Time: 02:21 coral 05/24 03:55 Order name: Transfuse; Complete Time: 05:47 cp EC:04 Rate is 69 beats/min. Rhythm is regular. WA interval is normal. QRS interval is normal. cp QT interval is normal. Interpreted by me. Reviewed by me. Administered Medications: 02:21 Drug: NS 0.9% IV 1000 ml IV at 1 bolus Per protocol; 1000 mL bolus Route: IV; Rate: 1 jw7 bolus; Site: left forearm; 06:25 Follow up: Response: No adverse reaction; IV Status: Completed infusion; IV Intake: jw7 1000ml 02:37 Drug: Pantoprazole IVP 40 mg IVP once Route: IVP; Site: right antecubital; jw7 06:25 Follow up: Response: No adverse reaction jw7 02:38 Drug: metroNIDAZOLE IVPB 500 mg 100 ml IVPB at 200 ml/hr once over 30 mins Volume: 100 jw7 ml; Route: IVPB; Rate: 200 ml/hr; Infused Over: 30 mins; Site: right antecubital; 06:26 Follow up: Response: No adverse reaction; IV Status: Completed infusion; IV Intake: jw7 100ml 02:59 Drug: Ciprofloxacin IVPB 400 mg 200 ml IVPB once over 60 mins Volume: 200 ml; Route: jw7 IVPB; Infused Over: 60 mins; Site: left forearm; 06:26 Follow up: Response: No adverse reaction; IV Status: Completed infusion; IV Intake: jw7 200ml 04:49 Drug: Potassium Chloride IV 20 mEq IV at calculated rate once; administer over 1-2 jw7 hours Route: IV; Rate: calculated rate; Site: right antecubital; 06:31 Follow up: Response: No adverse reaction; IV Status: Infusion continued upon transfer; jw7 IV Intake: 75ml 04:53 Drug: tranexamic acid 1000 mg IV at 1000 mg/hr once; administer at a rate not to exceed jw7 100 mg per min Route: IV; Rate: 1000 mg/hr; Site: left forearm; 06:26 Follow up: Response: No adverse reaction; IV Status: Completed infusion; IV Intake: jw7 100ml 06:00 Drug: diphenhydrAMINE IVP 25 mg IVP once Route: IVP; Site: right antecubital; jw7 06:31 Follow up: Response: No adverse reaction jw7 06:00 Drug: Acetaminophen PO 650 mg PO once Route: PO; jw7 06:32 Follow up: Response: No adverse reaction jw7 Disposition Summary: 05/24/23 03:21 Transfer Ordered Notes: Reason: Higher level of care cp Condition: Stable cp Problem: new cp Symptoms: have improved cp Transfer Location: Other Acute Care Facility(05/24/23 04:53) cp Accepting Physician: DR Trino Mora(05/24/23 06:35) jw7 Diagnosis - Syncope cp - GI Bleed/ Gastrointestinal hemorrhage, unspecified cp - Diarrhea, unspecified cp - Hypokalemia cp - Anemia, unspecified cp - Pleural effusion, not elsewhere classified - left [facility] Discharge Instructions: - Discharge Summary Sheet pf1 Forms: - Medication Reconciliation Form cp - SBAR form cp - Family Work Release pf1 Critical care time excluding procedures: 05:04 Critical care time: Bedside Care: 7 minutes, Consultation: 25 minutes. Total time: 32 cp minutes Signatures: Dispatcher [employer] EDDuy Cruz MD MD cha Page, Corey, PA PA cp Waits, Jodi RN RN jw7 Corrections: (The following items were deleted from the chart) 03:23 03:21 Doctor cp cp 04:33 03:23 Doctor cp cp 04:53 03:21 [facility] cp cp 04:53 04:33 Doctor cp cp 05:41 04:53 DR Trino Mora cp coral 06:35 05:41 DR Trino Mora cha jw7
[2023-05-24 03:22] LABS: ALT/SGPT < 10 U/L (13-56); Potassium 2.4 mEq/L (3.5-5.1)
[2023-05-24 06:54] LABS: C.diff Antigen/Toxin Ag neg : Tox neg (NEG : NEG)
[2023-05-24 07:36] VITALS: BP 141/62; TEMP 97.7; O2SAT 98
--- NOTE | 2023-05-24 11:54 | RAD REPORT ---
EXAM DESCRIPTION: CT - Head C Spine Cap Wo Con - 05/24/2023 9:09 am CLINICAL HISTORY: Syncope, abdominal pain COMPARISON: 10/31/2022. 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 FINDINGS: Brain: There is no acute hemorrhage, mass effect or midline shift. Morse-white differentiat ion is preserved. There is no hydrocephalus. There is no significant volume loss for age. Right frontal craniotomy was performed. Orbits and globes are unremarkable. The paranasal sinuses are clear. Mastoid air cells are clear. Cervical Spine: There is no acute fracture. There is grade 1 anterolisthesis of C2 on C3, C3-C4 and C 4 on C5. There is minimal upper left cervical facet arthritis. Disc spaces are maintained. Vertebral body heights are preserved. There is upper lung centrilobular e mphysema. Chest: The heart is normal in size. There is no pericardial effusion. Intrathoracic lymph nodes are n ot enlarged. There is a trace left pleural effusion. Central airways are patent. Lungs are clear with no consolida tion, mass or interstitial lung disease. Abdomen: The liver is normal in appearance. There is no biliary dilatation. Gallbladder contains laye ring gallstones. The pancreas and spleen are normal in appearance. Adrenal glands are normal. Kidneys are mildly atrophic. Left kidney contains at least 3 calculi measuring up to 1.4 cm in the lower polo e. There is no hydronephrosis. Abdominal aorta is normal in course and caliber without aneurysm. There is no free air. There is no r etroperitoneal adenopathy. Pelvis: There is no bowel obstruction. Urinary bladder is unremarkable. There is no free fluid. The uterus is normal in size. Appendix is normal. Skeleton: There are no acute osseous findings. No suspicious bony lesions. IMPRESSION: No definite acute process. . Electronically signed by: Keith Darby MD 05/24/2023 03:[address] MACHINE RUNNER Due to temporary technical issues with the PACS/Fluency reporting system, reports are being signed by the in house radiologist without review as a courtesy to ensure prompt reporting. The interpreting r adiologist is fully responsible for the content of the report.
--- NOTE | 2023-05-24 12:22 | RAD REPORT ---
EXAM DESCRIPTION: RAD - Chest Single View - 05/24/2023 2:35 am CLINICAL HISTORY: The patient is 63 years old and is Female; syncope TECHNIQUE: Frontal view of the chest. COMPARISON: No relevant prior studies available. FINDINGS: Lungs: Mildly prominent interstitial markings. No consolidation. Pleural space: Left pleural effusion. No pneumothorax. Heart: Unremarkable. Mediastinum: Unremarkable. Normal mediastinal contour. Bones/joints: No acute findings. Tubes, lines and devices: Left-sided pacemaker. IMPRESSION: 1. Left pleural effusion. 2. Mildly prominent interstitial markings. Electronically signed by: Sky Marc MD 05/24/2023 02:50 AM MANAGER PORT Due to temporary technical issues with the PACS/Fluency reporting system, reports are being signed by the in house radiologist without review as a courtesy to ensure prompt reporting. The interpreting r adiologist is fully responsible for the content of the report.
--- NOTE | 2023-05-24 17:34 | EKG ---
Test Date: 2023-05-24 Test Time: 01:57:53 Administrative Services Officer: JOE MEASUREMENT RESULTS: Intervals: Rate: 69 NE: 136 QRSD: 98 QT: 432 QTc: 462 [facility]: P: 54 NE: 136 QRS: 68 T: 53 INTERPRETIVE STATEMENTS: Normal sinus rhythm Left ventricular hypertrophy with repolarization abnormality Abnormal ECG Compared to ECG 10/31/2022 19:27:59 Early repolarization now present ST (T wave) deviation no longer present Electronically Signed On 05-24-23 17:33:41 METAL ROASTER by Sin Atkinson
== END ==
LOC: ER 01:52
PROC: 30233N1 Transfusion of Nonautologous Red Blood Cells into Peripheral Vein, Percutaneous Approach (ICD-10-PCS; principal; 2023-05-24)
DX: D64.9 Anemia, unspecified (principal); K92.2 Gastrointestinal hemorrhage, unspecified; R19.7 Diarrhea, unspecified; E87.6 Hypokalemia; J90 Pleural effusion, not elsewhere classified; E11.9 Type 2 diabetes mellitus without complications; I10 Essential (primary) hypertension; I25.2 Old myocardial infarction; F17.210 Nicotine dependence, cigarettes, uncomplicated; Z86.73 Personal history of transient ischemic attack (TIA), and cerebral infarction without residual deficits; Z79.82 Long term (current) use of aspirin; Z88.5 Allergy status to narcotic agent; Z88.8 Allergy status to other drugs, medicaments and biological substances; Z95.0 Presence of cardiac pacemaker
CPT/HCPCS: 93005; 87040 ×2; 87045; 85025; 80048; 36415; 86900; 83735; 86850; 87177; 85610; 86901; 80076; 87046; 83605; 85730; 87209; 86920 ×2; 87324; 84484; 83690; 83880; 87425; 70450; 71250; 72125; 71045; 99285; 36430; J3480; J1200; C9113; J0744; P9016 ×2; J7050 ×3; J7030

== ENCOUNTER 2024-01-26 10:59 | Emergency (ER) | payer MEDICARE ==
[2024-01-26] MEDS ORDERED: PANTOPRAZOLE 40 MG INJ ONE ×2 (11:20→13:00)
[2024-01-26] MEDS ORDERED: METRONIDAZOLE 500mg IVPB 500 MG/100 ML BAG IV ONE (11:21)
[2024-01-26] MEDS ORDERED: CIPROFLOXACIN 400mg IV 400 MG/200 ML BAG IV ONE (11:21)
[2024-01-26] MEDS ORDERED: NA CHLORIDE 0.9% 1,000 ML ONE (11:21)
[2024-01-26] MEDS ORDERED: DIPHENHYDRAMINE 50 MG/ML VIAL ONE (11:36)
[2024-01-26 11:50] LABS: Eosinophils % 2.4 % (0-4.4); MPV 7.2 fL (7.6-11.3)
--- NOTE | 2024-01-26 12:34 | EDPHYS ---
Physician Documentation [facility] Name: Blanca Estrada Age: 63 yrs Sex: Female : 1960 Arrival Date: 01/26/2024 Time: 10:59 Bed 6 Private MD: ED Physician Duy Capps HPI: 01/25 12:28 This 63 yrs old Female presents to ER via EMS with complaints of Bloody coral Stools. 12:28 The patient presents with abdominal pain in the lower abdomen, abdominal distention in coral the upper abdomen, in the lower abdomen. Onset: The symptoms/episode began/occurred 2 day(s) ago. The patient presents to the emergency department with rectal bleeding, Onset: The symptoms/episode began/occurred 2 day(s) ago. Abdominal pain: none is appreciated. Modifying factors: The symptoms are alleviated by nothing, the symptoms are aggravated by nothing. Associated signs and symptoms: Pertinent positives: diarrhea. The symptoms do not radiate. Associated signs and symptoms: Pertinent positives: blood in stools. Modifying factors: The symptoms are alleviated by nothing, the symptoms are aggravated by movement, pressure. Historical: - Allergies: 11:09 Albuterol; tm6 11:09 Morphine; tm6 - PMHx: 11:09 Anxiety; CAD; Clots in the past; CVA; Diabetes - IDDM; Hyperlipidemia; Hypertension; tm6 Myocardial infarction; colon cancer (Myocardial infarction); - PSHx: 11:09 back; Brain; pacemaker; Stented artery; tm6 - Immunization history:: Client reports receiving the 2nd dose of the Covid vaccine. - Infectious Disease History:: Denies. - Social history:: Smoking status: Patient reports the use of cigarette tobacco products, smokes two packs cigarettes per day. Patient/guardian denies using alcohol. - Family history:: not pertinent. ROS: 12:28 Constitutional: Negative for fever, chills, and weight loss, Eyes: Negative for injury, coral pain, redness, and discharge, ENT: Negative for injury, pain, and discharge, Neck: Negative for injury, pain, and swelling, Cardiovascular: Negative for chest pain, palpitations, and edema, Respiratory: Negative for shortness of breath, cough, wheezing, and pleuritic chest pain, Back: Negative for injury and pain, : Negative for injury, bleeding, discharge, and swelling, MS/Extremity: Negative for injury and deformity, Neuro: Negative for headache, weakness, numbness, tingling, and seizure, Psych: Negative for depression, anxiety, suicide ideation, homicidal ideation, and hallucinations, Allergy/Immunology: Negative for hives, rash, and allergies, Endocrine: Negative for neck swelling, polydipsia, polyuria, polyphagia, and marked weight changes, Hematologic/Lymphatic: Negative for swollen nodes, abnormal bleeding, and unusual bruising, 12:28 Abdomen/GI: Positive for abdominal pain, nausea, abdominal cramps, abdominal distension, rectal pain, rectal bleeding, Exam: 12:28 Constitutional: This is a well developed, well nourished patient who is awake, alert, coral and in no acute distress. Head/Face: Normocephalic, atraumatic. Eyes: Pupils equal round and reactive to light, extra-ocular motions intact. Lids and lashes normal. Conjunctiva and sclera are non-icteric and not injected. Cornea within normal limits. Periorbital areas with no swelling, redness, or edema. ENT: Nares patent. No nasal discharge, no septal abnormalities noted. Tympanic membranes are normal and external auditory canals are clear. Oropharynx with no redness, swelling, or masses, exudates, or evidence of obstruction, uvula midline. Mucous membranes moist. Neck: Trachea midline, no thyromegaly or masses palpated, and no cervical lymphadenopathy. Supple, full range of motion without nuchal rigidity, or vertebral point tenderness. No Meningismus. Chest/axilla: Normal chest wall appearance and motion. Nontender with no deformity. No lesions are appreciated. Cardiovascular: Regular rate and rhythm with a normal S1 and S2. No gallops, murmurs, or rubs. Normal PMI, no JVD. No pulse deficits. Respiratory: Lungs have equal breath sounds bilaterally, clear to auscultation and percussion. No rales, rhonchi or wheezes noted. No increased work of breathing, no retractions or nasal flaring. Back: No spinal tenderness. No costovertebral tenderness. Full range of motion. Female : Normal external genitalia. Skin: Warm, dry with normal turgor. Normal color with no rashes, no lesions, and no evidence of cellulitis. MS/ Extremity: Pulses equal, no cyanosis. Neurovascular intact. Full, normal range of motion. Neuro: Awake and alert, GCS 15, oriented to person, place, time, and situation. Cranial nerves II-XII grossly intact. Motor strength 5/5 in all extremities. Sensory grossly intact. Cerebellar exam normal. Normal gait. Psych: Awake, alert, with orientation to person, place and time. Behavior, mood, and affect are within normal limits. 12:28 Abdomen/GI: Inspection: abdomen appears normal, Bowel sounds: normal, Palpation: moderate abdominal tenderness, in the left upper quadrant and left lower quadrant, Liver: no appreciated palpable abnormalities, Hernia: not appreciated, 12:41 ECG was reviewed by the Attending Physician. coral Vital Signs: 11:08 BP 117 / 51; Pulse 77; Resp 19; Temp 97.5(O); Pulse Ox 95% on R/A; Weight 68.04 kg; tm6 Height 5 ft. 8 in. ; Pain 0/10; 13:14 BP 120 / 61; Pulse 81; Resp 17; Pulse Ox 99% on R/A; rs5 16:04 BP 127 / 77; Pulse 70; Resp 17; Temp 98.2; Pulse Ox 97% on R/A; rs5 16:05 BP 124 / 62; Pulse 72; Resp 17; Temp 98.3(O); Pulse Ox 95% on R/A; rs5 16:10 BP 132 / 67; Pulse 76; Resp 16; Temp 98.3(O); Pulse Ox 97% on R/A; rs5 16:15 BP 127 / 65; Pulse 75; Resp 17; Temp 98.2(O); Pulse Ox 98% on R/A; rs5 16:20 BP 137 / 68; Pulse 75; Resp 17; Temp 98.2(O); Pulse Ox 97% on R/A; rs5 18:05 BP 146 / 57; Pulse 75; Resp 17; Temp 98.2(O); Pulse Ox 98% on R/A; rs5 18:40 BP 144 / 62; Pulse 78; Resp 17; Temp 98.2(O); Pulse Ox 98% on R/A; rs5 19:25 BP 137 / 59; Pulse 68; Resp 18; Temp 98.3; Pulse Ox 96% on R/A; Pain 0/10; bm8 11:08 Body Mass Index 22.81 (68.04 kg, 172.72 cm) tm6 11:08 Pain Scale: Adult tm6 19:25 Pain Scale: Adult bm8 Chas Coma Score: 19:25 Eye Response: spontaneous(4). Motor Response: obeys commands(6). Verbal Response: bm8 oriented(5). Total: 15. MDM: 11:08 Patient medically screened. [facility] 12:31 Differential diagnosis: gastritis, diverticulitis, hemorrhagic shock, varices, coral diverticulitis, gastritis, myocardia ischemia or infarction, non-specific abd pain, pancreatitis, Peptic Ulcer Disease, Perf. Duodenal Ulcer, Perf. Gastric Ulcer, urinary tract infection. Data reviewed: vital signs, nurses notes, lab test result(s), EKG, radiologic studies, CT scan, plain films. Consideration of Admission/Observation Escalation of care including admission/observation considered. I considered the following discharge prescriptions or medication management in the emergency department Medications were administered in the Emergency Department. See MAR. Independent interpretation of the following test(s) in the Emergency Department EKG: See my EKG interpretation above. Test considered but Not performed: Ultrasound NO ABD USG. Care significantly affected by the following chronic conditions: Diabetes, Hypertension, CAD, ANXIETY, HYPERLIPIDS. 01/25 11:10 Order name: Basic Metabolic Panel; Complete Time: 12:58 [facility] 01/25 11:10 Order name: CBC with Diff; Complete Time: 12:58 [facility] 01/25 11:10 Order name: LFT's; Complete Time: 12:58 [facility] 01/25 11:10 Order name: Magnesium; Complete Time: 12:58 [facility] 01/25 11:10 Order name: NT PRO-BNP; Complete Time: 12:58 [facility] 01/25 11:10 Order name: PT-INR; Complete Time: 13:35 [facility] 01/25 11:10 Order name: Troponin HS; Complete Time: 12:58 [facility] 01/25 11:10 Order name: Lipase; Complete Time: 12:58 [facility] 01/25 11:56 Order name: PRBC [facility] 01/25 11:59 Order name: ABO/RH typing [facility] 01/25 11:59 Order name: Antibody Screen [facility] 01/25 12:42 Order name: CREATININE WHOLE BLOOD; Complete Time: 12:42 [facility] 01/25 17:24 Order name: Glucose, Ancillary Testing [facility] 01/25 11:10 Order name: XRAY Chest (1 view); Complete Time: 12:42 [facility] 01/25 11:10 Order name: CT Abd/Pelvis - IV Contrast Only; Complete Time: 12:58 [facility] 01/25 11:10 Order name: Cardiac monitoring; Complete Time: 11:45 [facility] 01/25 11:10 Order name: EKG - Nurse/Tech; Complete Time: 11:45 [facility] 01/25 11:10 Order name: IV Saline Lock; Complete Time: 11:45 [facility] 01/25 11:10 Order name: Labs collected and sent; Complete Time: 11:45 [facility] 01/25 11:10 Order name: O2 Per Protocol; Complete Time: 11:46 [facility] 01/25 11:10 Order name: O2 Sat Monitoring; Complete Time: 11:46 [facility] 01/25 11:10 Order name: IV Saline Lock - Large Bore; Complete Time: 11:45 [facility] 01/25 11:56 Order name: Transfuse; Complete Time: 17:00 [facility] 01/25 11:56 Order name: NPO; Complete Time: 12:53 [facility] 01/25 11:56 Order name: Misc. Order: BED REST; Complete Time: 12:53 [facility] EC:41 Rate is 68 beats/min. Rhythm is regular. QRS [place] is Normal. [place] interval is normal. QRS [place] interval is normal. QT interval is normal. No Q waves. T waves are Normal. No ST changes noted. Clinical impression: NSR w/ Non-specific ST/T Changes and No evidence of ischemia. Interpreted by me. Reviewed by me. Administered Medications: 11:20 Drug: NS 0.9% IV 1000 ml IV at 1 bolus Per protocol; 1000 mL bolus Route: IV; Rate: 1 rs5 bolus; Site: left hand; 12:25 Follow up: IV Status: Completed infusion rs5 11:20 Drug: Pantoprazole IVP 40 mg IVP once Route: IVP; Site: left hand; rs5 11:42 Follow up: Response: No adverse reaction rs5 11:20 Drug: Ciprofloxacin IVPB 400 mg 200 ml IVPB once over 60 mins Volume: 200 ml; Route: rs5 IVPB; Infused Over: 60 mins; Site: left hand; 12:25 Follow up: Response: No adverse reaction; IV Status: Completed infusion rs5 11:20 Drug: metroNIDAZOLE IVPB 500 mg 100 ml IVPB at 200 ml/hr once over 30 mins Volume: 100 rs5 ml; Route: IVPB; Rate: 200 ml/hr; Infused Over: 30 mins; Site: left hand; 12:01 Follow up: Response: No adverse reaction; IV Status: Completed infusion rs5 12:09 Drug: Pantoprazole IVP 40 mg IVP once Route: IVP; Site: left antecubital; rs5 12:30 Follow up: Response: No adverse reaction rs5 13:50 Drug: Potassium Chloride IV 20 mEq IV at per protocol once; administer over 1-2 hours rs5 Route: IV; Rate: per protocol; Site: left antecubital; 14:15 Follow up: Response: No adverse reaction rs5 19:44 Follow up: Response: No adverse reaction; IV Status: Completed infusion; IV Intake: bm8 100ml 13:50 Drug: NS 0.9% with KCl IV 20 mEq/L 1000 ml IV at 125 ml/hr continuous Route: IV; Rate: rs5 125 ml/hr; Site: right antecubital; 14:33 Follow up: Response: No adverse reaction rs5 20:24 Follow up: Response: No adverse reaction; IV Status: Infusion continued upon transfer bm8 Disposition Summary: 01/26/24 12:34 Transfer Ordered Notes: Transfer Location: [facility] coral Reason: Higher level of care coral Condition: Fair coral Problem: new coral Symptoms: have improved coral Accepting Physician: TO [facility](01/26/24 20:24) bm8 Diagnosis - GI Bleed/ Gastrointestinal hemorrhage, unspecified - LOWER coral - Anemia, unspecified coral - Malignant neoplasm of ascending colon coral Forms: - Medication Reconciliation Form coral - SBAR form coral Signatures: Dispatcher [employer] EDMS Duy Capps MD MD cha Sotelo, Ricky, RN RN rs5 Jocelyne Marinelli RN RN tm6 Saji Villatoro RN RN bm8 Corrections: (The following items were deleted from the chart) 11:10 11:10 Chest Single View+RAD.RAD.BRZ ordered. EDMS EDMS 11:10 11:10 Abdomen Pelvis W Con+CT.RAD.BRZ ordered. EDMS EDMS 11:46 11:10 Urinalysis+U.LAB.BRZ ordered. EDMS EDMS 13:01 12:34 TO [facility] coral coral 13:37 13:01 [facility] coral coral 13:37 13:01 Malignant neoplasm of descending colon coral coral 20:24 13:37 [facility] coral bm8
--- NOTE | 2024-01-26 12:34 | ER ---
Nurse's Notes [facility] Name: Blanca Estrada Age: 63 yrs Sex: Female : 1960 Arrival Date: 01/26/2024 Time: 10:59 Bed 6 Private MD: Diagnosis: GI Bleed/ Gastrointestinal hemorrhage, unspecified-LOWER;Anemia, unspecified;Malignant neoplasm of ascending colon Presentation: 01/25 11:08 Chief complaint: EMS states: bright red and black stools since 0130 today. Recent tm6 diagnosis of colon cancer. Coronavirus screen: Vaccine status: Patient reports receiving the 2nd dose of the covid vaccine. Ebola Screen: Patient negative for fever greater than or equal to 101.5 degrees Fahrenheit, and additional compatible Ebola Virus Disease symptoms Patient denies exposure to infectious person. Patient denies travel to an Ebola-affected area in the 21 days before illness onset. No symptoms or risks identified at this time. Initial Sepsis Screen: Does the patient meet any 2 criteria? No. Patient's initial sepsis screen is negative. Does the patient have a suspected source of infection? No. Patient's initial sepsis screen is negative. Risk Assessment: Do you want to hurt yourself or someone else? Patient reports no desire to harm self or others. Onset of symptoms was January 26, 2024 at 01:30. 11:08 Method Of Arrival: EMS: [facility] tm6 11:08 Acuity: WILMAR 3 tm6 Triage Assessment: 11:09 General: Appears in no apparent distress. Behavior is calm, cooperative. Pain: Denies tm6 pain. EENT: No signs and/or symptoms were reported regarding the EENT system. Neuro: Level of Consciousness is awake, alert, obeys commands, Oriented to person, place, time, situation. Cardiovascular: Patient's skin is warm and dry. Respiratory: Airway is patent Respiratory effort is even, unlabored. GI: Reports bloody stool. : No signs and/or symptoms were reported regarding the genitourinary system. Derm: No signs and/or symptoms reported regarding the dermatologic system. Musculoskeletal: No signs and/or symptoms reported regarding the musculoskeletal system. Historical: - Allergies: 11:09 Albuterol; tm6 11:09 Morphine; tm6 - PMHx: 11:09 Anxiety; CAD; Clots in the past; CVA; Diabetes - IDDM; Hyperlipidemia; Hypertension; tm6 Myocardial infarction; colon cancer (Myocardial infarction); - PSHx: 11:09 back; Brain; pacemaker; Stented artery; tm6 - Immunization history:: Client reports receiving the 2nd dose of the Covid vaccine. - Infectious Disease History:: Denies. - Social history:: Smoking status: Patient reports the use of cigarette tobacco products, smokes two packs cigarettes per day. Patient/guardian denies using alcohol. - Family history:: not pertinent. Screenin:12 [facility] ED Fall Risk Assessment (Adult) History of falling in the last 3 months, tm6 including since admission No falls in past 3 months (0 pts) Confusion or Disorientation No (0 pts) Intoxicated or Sedated No (0 pts) Impaired Gait No (0 pts) Mobility Assist Device Used No (0 pt) Altered Elimination No (0 pt) Score/Fall Risk Level 0 - 2 = Low Risk Oriented to surroundings, Maintained a safe environment, Educated pt \T\ family on fall prevention, incl call for assistance when getting out of bed. Abuse screen: Denies threats or abuse. Denies injuries from another. Nutritional screening: No deficits noted. Tuberculosis screening: No symptoms or risk factors identified. Assessment: 11:10 General: Appears in no apparent distress. comfortable, Behavior is calm, cooperative. rs5 Pain: Denies pain. Neuro: Level of Consciousness is awake, alert, obeys commands, Oriented to person, place, time, situation. Cardiovascular: Patient's skin is warm and dry. Respiratory: Airway is patent Respiratory effort is even, unlabored, Respiratory pattern is regular, symmetrical. GI: Abdomen is round non-distended, Abd is soft and non tender X 4 quads. Reports bloody stool. : No signs and/or symptoms were reported regarding the genitourinary system. EENT: No signs and/or symptoms were reported regarding the EENT system. Derm: Skin is intact, Skin is pink, warm \T\ dry. Musculoskeletal: Range of motion: intact in all extremities. 12:15 Reassessment: Patient and/or family updated on plan of care and expected duration. Pain rs5 level reassessed. Patient is alert, oriented x 3, equal unlabored respirations, skin warm/dry/pink. 13:22 Reassessment: No changes from previously documented assessment. rs5 13:57 Reassessment: No changes from previously documented assessment. rs5 15:15 Reassessment: No changes from previously documented assessment. rs5 16:20 Reassessment: to bedside for blood transfusion, rate started at 50 ml/hr, remained with rs5 patient for first 15 min of transfusion, no adverse reaction noted, rate increased to 150 ml/hr. See paper charting for more information . 16:20 Reassessment: Patient and/or family updated on plan of care and expected duration. Pain rs5 level reassessed. Patient is alert, oriented x 3, equal unlabored respirations, skin warm/dry/pink. Cardiovascular:. Respiratory: Airway is patent Respiratory effort is even, unlabored, Respiratory pattern is regular, symmetrical. 17:33 Reassessment: Patient and/or family updated on plan of care and expected duration. Pain rs5 level reassessed. Patient is alert, oriented x 3, equal unlabored respirations, skin warm/dry/pink. 18:40 Reassessment: blood transfusion complete, no adverse reaction noted, IV DC'd and rs5 flushed with 10cc normal saline see paper charting for more information. 19:25 Reassessment: Patient appears in no apparent distress at this time. Patient and/or bm8 family updated on plan of care and expected duration. Pain level reassessed. Patient is alert, oriented x 3, equal unlabored respirations, skin warm/dry/pink. pt denies bloody stools since arrival in er, pain. Patient denies pain at this time. General: Appears in no apparent distress. comfortable, Behavior is calm, cooperative, appropriate for age. Pain: Denies pain. Neuro: No deficits noted. Level of Consciousness is awake, alert, obeys commands, Oriented to person, place, time, situation, Appropriate for age. Cardiovascular: Denies chest pain, Heart tones S1 S2 present Capillary refill < 3 seconds Patient's skin is warm and dry. Respiratory: No deficits noted. Airway is patent Respiratory effort is even, unlabored, Respiratory pattern is regular, symmetrical, Breath sounds are clear bilaterally. GI: Patient currently denies abdominal pain, bloody stool, nausea, vomiting, since arrival. : No signs and/or symptoms were reported regarding the genitourinary system. EENT: No signs and/or symptoms were reported regarding the EENT system. Derm: No signs and/or symptoms reported regarding the dermatologic system. Musculoskeletal: No signs and/or symptoms reported regarding the musculoskeletal system. Vital Signs: 11:08 BP 117 / 51; Pulse 77; Resp 19; Temp 97.5(O); Pulse Ox 95% on R/A; Weight 68.04 kg; tm6 Height 5 ft. 8 in. ; Pain 0/10; 13:14 BP 120 / 61; Pulse 81; Resp 17; Pulse Ox 99% on R/A; rs5 16:04 BP 127 / 77; Pulse 70; Resp 17; Temp 98.2; Pulse Ox 97% on R/A; rs5 16:05 BP 124 / 62; Pulse 72; Resp 17; Temp 98.3(O); Pulse Ox 95% on R/A; rs5 16:10 BP 132 / 67; Pulse 76; Resp 16; Temp 98.3(O); Pulse Ox 97% on R/A; rs5 16:15 BP 127 / 65; Pulse 75; Resp 17; Temp 98.2(O); Pulse Ox 98% on R/A; rs5 16:20 BP 137 / 68; Pulse 75; Resp 17; Temp 98.2(O); Pulse Ox 97% on R/A; rs5 18:05 BP 146 / 57; Pulse 75; Resp 17; Temp 98.2(O); Pulse Ox 98% on R/A; rs5 18:40 BP 144 / 62; Pulse 78; Resp 17; Temp 98.2(O); Pulse Ox 98% on R/A; rs5 19:25 BP 137 / 59; Pulse 68; Resp 18; Temp 98.3; Pulse Ox 96% on R/A; Pain 0/10; bm8 11:08 Body Mass Index 22.81 (68.04 kg, 172.72 cm) tm6 11:08 Pain Scale: Adult tm6 19:25 Pain Scale: Adult bm8 Walsh Coma Score: 19:25 Eye Response: spontaneous(4). Motor Response: obeys commands(6). Verbal Response: bm8 oriented(5). Total: 15. ED Course: 11:08 Patient arrived in ED. tm6 11:08 Duy Capps MD is Attending Physician. [facility] 11:09 Triage completed. tm6 11:09 Arm band placed on right wrist. tm6 11:12 Patient has correct armband on for positive identification. Placed in gown. Bed in low tm6 position. Call light in reach. Side rails up X2. Provided Education on: use of call gamboa. Client placed on continuous cardiac and pulse oximetry monitoring. NIBP monitoring applied. secured entrance monitor on. Pulse ox on. NIBP on. Door closed. Noise minimized. Warm blanket given. Pillow given. 11:12 Maintain EMS IV. Dressing intact. Good blood return noted. Site clean \T\ dry. Gauge \T\ tm 6 site: 20g L hand. Flushed with 10 mL NS. 11:45 Initial lab(s) drawn, by me, sent to lab. Inserted saline lock: 22 gauge in left zm forearm, using aseptic technique. Blood collected. Flushed with 10 mL NS. 11:46 Basic Metabolic Panel Sent. zm 11:46 CBC with Diff Sent. zm 11:46 LFT's Sent. zm 11:46 Magnesium Sent. zm 11:46 NT PRO-BNP Sent. zm 11:46 PT-INR Sent. zm 11:46 Troponin HS Sent. zm 11:46 Lipase Sent. zm 11:51 Pasquale De Jesus, RN is Primary Nurse. rs5 11:52 No provider procedures requiring assistance completed. rs5 12:18 XRAY Chest (1 view) In Process Unspecified. EDMS 12:32 CT Abd/Pelvis - IV Contrast Only In Process Unspecified. EDMS 12:56 initiated a transfer with Alfredo Mike Rn from the [facility]. eb 13:48 administrative approval given by Alfredo Mike Rn/ patient has been accepted to to [facility] 3N bed 9/ Dr. Mercy Rodrigues has accepted the patient in transfer/ report to be called to [phone]. 17:23 pt refused to be transferred to [facility]/ Transfer center notified/ \T\[id number] eb administrative approval given by Alfredo Mike Rn again/ \T\1625 Dr. Grayson Stark has accepted the patient in transfer/ patient accepted to [facility] room 914. 18:37 \T\1836 called [facility] there are unable too until after 2014/ \T\1837 [facility] eb called they are unavailable for three hours/. 19:25 IV is patent, with fluids infusing freely, with good blood return, Flushed left forearm bm8 with 5 ml normal saline. 20:14 Provided Education on: Blood Transfusion, need for transfer. bm8 20:14 Patient transferred, IV remains in place. bm8 Administered Medications: 11:20 Drug: NS 0.9% IV 1000 ml IV at 1 bolus Per protocol; 1000 mL bolus Route: IV; Rate: 1 rs5 bolus; Site: left hand; 12:25 Follow up: IV Status: Completed infusion rs5 11:20 Drug: Pantoprazole IVP 40 mg IVP once Route: IVP; Site: left hand; rs5 11:42 Follow up: Response: No adverse reaction rs5 11:20 Drug: Ciprofloxacin IVPB 400 mg 200 ml IVPB once over 60 mins Volume: 200 ml; Route: rs5 IVPB; Infused Over: 60 mins; Site: left hand; 12:25 Follow up: Response: No adverse reaction; IV Status: Completed infusion rs5 11:20 Drug: metroNIDAZOLE IVPB 500 mg 100 ml IVPB at 200 ml/hr once over 30 mins Volume: 100 rs5 ml; Route: IVPB; Rate: 200 ml/hr; Infused Over: 30 mins; Site: left hand; 12:01 Follow up: Response: No adverse reaction; IV Status: Completed infusion rs5 12:09 Drug: Pantoprazole IVP 40 mg IVP once Route: IVP; Site: left antecubital; rs5 12:30 Follow up: Response: No adverse reaction rs5 13:50 Drug: Potassium Chloride IV 20 mEq IV at per protocol once; administer over 1-2 hours rs5 Route: IV; Rate: per protocol; Site: left antecubital; 14:15 Follow up: Response: No adverse reaction rs5 19:44 Follow up: Response: No adverse reaction; IV Status: Completed infusion; IV Intake: bm8 100ml 13:50 Drug: NS 0.9% with KCl IV 20 mEq/L 1000 ml IV at 125 ml/hr continuous Route: IV; Rate: rs5 125 ml/hr; Site: right antecubital; 14:33 Follow up: Response: No adverse reaction rs5 20:24 Follow up: Response: No adverse reaction; IV Status: Infusion continued upon transfer bm8 Medication: 11:12 VIS not applicable for this client. tm6 19:25 Blood products: PRBCs X 1 unit given. See transfusion record pt had one unit prior to bm8 this nurses arrival. Intake: 19:44 IV: 100ml; Total: 100ml. bm8 Outcome: 12:34 ER care complete, transfer ordered by . coral 20:14 Transferred by ground EMS [place] [facility] [facility] [place]. bm8 X-rays sent w/ patient. 20:14 Condition: stable 20:14 Instructed on the need for transfer, Demonstrated understanding of instructions, follow-up care, 20:24 Patient left the ED. bm8 Signatures: Dispatcher [employer] EDMS Duy Capps MD MD cha Botello, Amaya Lau Ricky, RN RN rs5 Jocelyne Marinelli RN RN tm6 Saji Villatoro RN RN bm8 Corrections: (The following items were deleted from the chart) 11:46 11:46 Urinalysis+U.LAB.BRZ drawn and sent. [facility] 13:14 11:12 Reassessment: see triage assessment tm6 rs5 13:57 11:10 GI: Abdomen is round non-distended, Abd is soft and non tender X 4 quads. rs5 rs5 17:00 16:20 Reassessment: to bedside for blood transfusion, rate started at 50 ml/hr, rs5 remained with patient for first 15 min of transfusion, no adverse reaction noted, rate increased to 150 ml/hr. rs5
--- NOTE | 2024-01-26 12:39 | RAD REPORT ---
EXAMINATION: ONE VIEW CHEST XR CLINICAL INDICATION: Female, 63 years old. ABDOMINAL DISTENTION . TECHNIQUE: 1 View, AP supine, X-ray of the chest was performed. [id number]. COMPARISON: 06/01/2023 FINDINGS: Lungs and pleura: Clear lungs. No effusion. Heart and mediastinum: Mild cardiomegaly. Unremarkable mediastinal contours. Osseous structures: No acute abnormality. Tubes/lines: Left subclavian approach pacemaker. Other: None. IMPRESSION: No acute intrathoracic abnormality.
[2024-01-26 12:45] LABS: Hematocrit 23.1 % (36.0-45.0); Hemoglobin 7.2 g/dL (12.0-15.0); MCH 23.2 pg (27.0-35.0); MCV 74.7 fL (80-100)
[2024-01-26 12:46] LABS: Absolute Basophils 0.1 K/uL (0-0.5); Absolute Eosinophils 0.3 K/uL (0-0.5); Absolute Lymphocytes (CBC) 1.6 K/uL (0.7-4.9); Absolute Monocytes 0.7 K/uL (0.1-1.3); Absolute Neutrophil 8.3 K/uL (1.8-8.0); Basophils % 0.6 % (0-1.3); Lymphocytes % 14.7 % (15.3-44.8); MCHC 31.1 g/dL (32.0-36.0); Monocytes % 6.6 % (3.3-12.3); Neutrophils % 75.7 % (41.7-73.7); Platelets 362 thou/uL (152-406); Red Cell Distribution Width 16.7 % (12.1-15.2)
--- NOTE | 2024-01-26 12:51 | RAD REPORT ---
EXAMINATION: CT ABDOMEN AND PELVIS WITH CONTRAST CLINICAL INDICATION: Female, 63 years old. ^ABD PAIN TECHNIQUE: CT abdomen and pelvis was performed, after the administration of IV contrast, [facility]. Axial, sagittal and coronal reconstructions were obtained. One or more of the following dose reduction techniques were used: Automated exposure control, adjustment of the mA and/o r kV according to patient size, and/or iterative reconstruction. Unless otherwise specified, incidental findings do not require dedicated imaging follow-up. [id number]. COMPARISON: 01/10/2024 FINDINGS: LOWER CHEST: The visualized lung bases are clear. LIVER: Normal in size and contour. No focal lesion. GALLBLADDER/BILE DUCT: No biliary ductal dilatation. ? PANCREAS: No mass, ductal dilation, or pasquale-pancreatic fluid. SPLEEN: Normal size. No focal lesion. ADRENALS: Bilateral adrenal nodules, 1.8 cm on the right and 1.7 cm on the left are again identified. KIDNEYS AND URETERS: Left nephrolithiasis. No ureteral calculi. URINARY BLADDER: Normal contour. GASTROINTESTINAL TRACT: Wall thickening and stranding is present at the ascending colon which was pre sent on the prior exam as well.. Normal appendix. PERITONEUM: No ascites. Small fat-containing umbilical hernia. LYMPH NODES: Enlarged ileocolic mesenteric lymph nodes, similar to prior. ABDOMINAL AORTA AND OTHER VESSELS: Normal caliber aorta and IVC. Right femoral artery stent. REPRODUCTIVE ORGANS: No pathologic process MUSCULOSKELETAL: No acute or suspicious osseous abnormality. Multilevel degenerative changes are pres ent in the spine. ADDITIONAL FINDINGS: None. IMPRESSION: Redemonstrated ascending colon mass with mild stranding and enlarged regional lymph nodes. This is re portedly a colonic neoplasm. No acute findings identified.
[2024-01-26 12:55] LABS: ALT/SGPT < 14 U/L (13-56); AST/SGOT < 10 U/L (15-37); Albumin 2.5 g/dL (3.4-5.0); Albumin/Globulin Ratio 0.7 (1.1-1.8); Alkaline Phosphatase 109 U/L (45-117); Anion Gap 7.9 mEq/L (5.0-15.0); BUN Blood Urea Nitrogen 9 mg/dL (7-18); Bicarbonate 28 mEq/L (21-32); Bilirubin Direct < 0.2 mg/dL (0-0.2); Bilirubin Indirect, Calculated 0.1 mg/dL (0.2-0.8); Bilirubin Total 0.3 mg/dL (0.2-1.0); Globulin 3.6 g/dL (2.3-3.5); Glomerular Filtration Rate 99 ml/min (=/>90); Glucose Level 321 mg/dL (74-106); Lipase 25 U/L (13-75); Magnesium 1.7 mg/dL (1.6-2.4); NT PRO-BNP 199 pg/mL (<125); Potassium 2.9 mEq/L (3.5-5.1); Protein, Total 6.1 g/dL (6.4-8.2); Sodium Level 139 mEq/L (136-145); Troponin High Sensitivity 10.2 pg/mL (<58.9)
[2024-01-26 13:03] LABS: PT Prothrombin Time 13.1 SECONDS (9.4-12.5); Protime INR 1.18
[2024-01-26] MEDS ORDERED: NA CHLORIDE 0.9% 250 ML ONE (13:18)
[2024-01-26] MEDS ORDERED: NS KCL 20MEQ 1,000 ML IV ONE (14:03)
[2024-01-26] MEDS ORDERED: KCL 20 MEQ/100 mL IVPB 100 ML IV ONE (14:03)
[2024-01-26 21:08] VITALS: BP 137/59; TEMP 98.3; O2SAT 96
--- NOTE | 2024-01-29 12:59 | EKG ---
Test Date: 2024-01-26 Test Time: 11:44:50 Pin Inserter Regulator: SANGITA MEASUREMENT RESULTS: Intervals: Rate: 68 MN: 148 QRSD: 134 QT: 484 QTc: 514 [place]: P: 57 MN: 148 QRS: 54 T: 63 INTERPRETIVE STATEMENTS: Normal sinus rhythm Left bundle branch block Abnormal ECG Compared to ECG 06/01/2023 15:56:09 Left bundle-branch block now present AV dual-paced complex(es) or rhythm no longer present Electronically Signed On 01-29-24 12:50:18 CDT by Sin Atkinson
== END 2024-01-26 20:24 | disposition short-term general hospital (02) ==
LOC: ER 10:59
DX: D64.9 Anemia, unspecified (principal); C18.2 Malignant neoplasm of ascending colon; I10 Essential (primary) hypertension; Z95.0 Presence of cardiac pacemaker; E11.9 Type 2 diabetes mellitus without complications
CPT/HCPCS: 93005; 85025; 80048; 36415; 86900; 83735; 86850; 85610; 82565; 86901; 82947; 80076; 86920 ×2; 84484; 83690; 83880; 74177; 71045; 36430; 99285; Q9967; J3480 ×2; J1200; J2470 ×2; J0744; P9016 ×2; J7050; J7030